=== PATIENT | male | born 1960 | race African-American/Black ===

== ENCOUNTER 2016-11-20 21:08 | Emergency (ER) | payer OTHER ==
[~2016-11-20 21:08] MED LIST: NALOXONE HCL 0.4 MG/1 ML VIAL/CARP ONE
[2016-11-20] MEDS ORDERED: SODIUM CHLORIDE 0.9% 1000ML 1,000 ML IV STA (21:11)
--- NOTE | 2016-11-20 21:15 | EMERGENCY ROOM VISIT NOTE ---
History Report prepared by [place]: Monse Campuzano Under the Supervision of: Dr. Sergey Rodriguez M.D. First contact with patient: 21:09 History of Present Illness The patient is a 42 year old male who presents to the Emergency Room to be evaluated for an episode of a fall that occurred this evening. Per nursing staff , the patient was found by his family after falling on the floor and hitting his head on the bathroom. The patient signed himself out of rehab two days ago, per . His family is concerned about the possible involvement of drugs. His related to nursing staff that she had cleaned the house of all sources of drugs and believes that the patient hit his head on purpose in order to receive some pain medication. Per patient, he cannot see out of his right eye. The history is limited due to the patient's condition. Source of History: patient History Limited By: other (patient condition) Onset: this evening Position: other (global ) Quality: other (fall) Timing: other (episode ) Note: The patient hit is head on the floor. He states that he cannot see out of his right eye. Review of Systems The review of systems is limited due to the patient's condition. Past Medical & Surgical Medical Problems: (1) Alcohol withdrawal delirium (2) Benign hypertension (3) Bypass gastroenterostomy (4) Chronic back pain (5) Delirium tremens (6) Opioid withdrawal (7) Osteoarthritis (8) PTSD (post-traumatic stress disorder) (9) Replacement of total knee joint Surgical Problems: (1) History of hip replacement (2) History of knee replacement Family History Diabetes mellitus Heart disease Social History Drug Use: other Marital Status: Housing Status: lives with family Current/Historical Medications Scheduled Ranitidine Hcl (Zantac), 150 MG PO BID Allergies Coded Allergies: No Known Allergies (Verified , 06/05/16) Physical Exam Vital Signs Date Time Temp Pulse Resp B/P Pulse Ox O2 Delivery O2 Flow Rate FiO2 11/21/16 01:20 70 19 126/76 99 11/21/16 01:19 71 11/20/16 23:48 69 18 136/76 95 Nasal Cannula 2.0 11/20/16 22:39 97 Nasal Cannula 2.0 11/20/16 22:14 72 18 123/80 100 Non-Rebreather 15.0 11/20/16 22:08 63 16 100 2/13/17 22:03 54 4 11/20/16 21:55 54 20 162/95 100 Room Air 11/20/16 21:48 62 15 162/95 11/20/16 21:43 55 13 76 11/20/16 21:41 95 Non-Rebreather 15.0 11/20/16 21:41 95 Non-Rebreather 15.0 11/20/16 21:40 134/84 11/20/16 21:38 58 17 11/20/16 21:33 50 20 91 11/20/16 21:32 155/95 11/20/16 21:28 55 19 100 11/20/16 21:26 58 Physical Exam GENERAL: Patient is a healthy-appearing well-nourished, clinically intoxicated HEAD: Normocephalic atraumatic EYES: Ocular movements intact pupils equal and react to light OROPHARYNX mucous membranes are moist no exudates present no erythema or edema present NECK: Supple no nuchal rigidity CHEST: Good equal expansion LUNGS: Clear and equal to auscultation CARDIAC: Normal S1 and S2 ABDOMEN: Soft nontender no guarding BACK: No CVA tenderness EXTREMITIES: No pain upon palpation normal muscle strength in all groups no clubbing cyanosis or edema NEURO: Patient will not respond to commands, responds to painful stimuli. Cranial Nerves 2-12 grossly intact Medical Decision & Procedures ER Provider Diagnostic Interpretation: X-ray results as stated below per my interpretation and radiologist interpretation. Other radiology results as stated below per my review and radiologist interpretation: CT SCAN OF THE BRAIN WITHOUT IV CONTRAST CLINICAL HISTORY: Change in mental status. COMPARISON STUDY: CT of the brain dated 07/19/2016. TECHNIQUE: Unenhanced axial CT scan of the brain is performed from the vertex to the skull base. Automated dose control exposure was utilized. CT DOSE: 871.45 mGy.cm FINDINGS: Brain parenchyma: The brain parenchyma is normal in appearance. There is no hemorrhage, mass effect, or evidence of acute territorial ischemia by CT criteria. Davidson-white matter is preserved. No extra-axial fluid collection is seen. Ventricles, sulci, cisterns: Normal in configuration. Intracranial vasculature: The visualized intracranial vasculature at the skull base is normal in appearance. Calvarium: Unremarkable. Sinuses and mastoids: The visualized paranasal sinuses are clear. The mastoid air cells are well pneumatized. Orbits: The bony orbits are grossly intact. IMPRESSION: No acute intracranial abnormality. Electronically signed by: Juan Panda M.D. 11/20/2016 10:04 PM Dictated Date/Time: 11/20/2016 10:02 PM SINGLE VIEW CHEST CLINICAL HISTORY: Change in mental status. FINDINGS: An AP, portable, upright chest radiograph is compared to study dated 06/05/2016. Correlation is made with chest CT dated 03/27/2011. The examination is degraded by portable technique, apical lordotic positioning, and patient rotation. The cardiomediastinal silhouette is unremarkable. There is atherosclerotic calcification of the thoracic aorta. The pulmonary vasculature is noncongested. There is chronic elevation of left hemidiaphragm with minimal left basilar atelectasis as well as chronic interstitial thickening. There is no airspace consolidation or large pleural effusion. No pneumothorax is seen. The bony thorax is grossly intact. Mild degenerative change is seen throughout the thoracic spine. IMPRESSION: No acute cardiopulmonary abnormality. Electronically signed by: Juan Panda M.D. 11/20/2016 10:11 PM Dictated Date/Time: 11/20/2016 10:10 PM RIGHT WRIST 4 VIEWS CLINICAL HISTORY: Right wrist pain. FINDINGS: 4 views of the right wrist are obtained. No prior studies are available for comparison at the time of dictation. The skeletal structures are well mineralized. There is no radiographic evidence of fracture. Minimal arthritic change is present the first carpometacarpal joint. Mild soft tissue swelling is observed. IMPRESSION: Mild soft tissue swelling with no radiographic evidence of fracture. If there is clinical concern for occult fracture consider short-term radiographic follow-up. Electronically signed by: Juan Panda M.D. 11/20/2016 10:06 PM Dictated Date/Time: 11/20/2016 10:04 PM Laboratory Results 11/20/16 21:32 Red Blood Count 4.56, Mean Corpuscular Volume 93.4, Mean Corpuscular Hemoglobin 32.5, Mean Corpuscular Hemoglobin Concent 34.7, Mean Platelet Volume 9.2, Neutrophils (%) (Auto) 47.4, Lymphocytes (%) (Auto) 45.2, Monocytes (%) (Auto) 4.0, Eosinophils (%) (Auto) 2.2, Basophils (%) (Auto) 1.0, Neutrophils # (Auto) 2.84, Lymphocytes # (Auto) 2.71, Monocytes # (Auto) 0.24, Eosinophils # (Auto) 0.13, Basophils # (Auto) 0.06 11/20/16 21:32 Test 11/20/16 21:32 11/20/16 21:39 11/20/16 21:42 11/21/16 00:01 White Blood Count 5.99 K/uL (4.8-10.8) Red Blood Count 4.56 M/uL (4.7-6.1) Hemoglobin 14.8 g/dL (14.0-18.0) Hematocrit 42.6 % (42-52) Mean Corpuscular Volume 93.4 fL (80-100) Mean Corpuscular Hemoglobin 32.5 pg (25-34) Mean Corpuscular Hemoglobin Concent 34.7 g/dl (32-36) Platelet Count 276 K/uL (130-400) Mean Platelet Volume 9.2 fL (7.4-10.4) Neutrophils (%) (Auto) 47.4 % Lymphocytes (%) (Auto) 45.2 % Monocytes (%) (Auto) 4.0 % Eosinophils (%) (Auto) 2.2 % Basophils (%) (Auto) 1.0 % Neutrophils # (Auto) 2.84 K/uL (1.4-6.5) Lymphocytes # (Auto) 2.71 K/uL (1.2-3.4) Monocytes # (Auto) 0.24 K/uL (0.11-0.59) Eosinophils # (Auto) 0.13 K/uL (0-0.5) Basophils # (Auto) 0.06 K/uL (0-0.2) RDW Standard Deviation 47.0 fL (36.4-46.3) RDW Coefficient of Variation 13.7 % (11.5-14.5) Immature Granulocyte % (Auto) 0.2 % Immature Granulocyte # (Auto) 0.01 K/uL (0.00-0.02) Prothrombin Time 9.9 SECONDS (9.0-12.0) Prothromb Time International Ratio 0.9 (0.9-1.1) Activated Partial Thromboplast Time 25.7 SECONDS (21.0-31.0) Partial Thromboplastin Ratio 1.0 Anion Gap 12.0 mmol/L (3-11) Estimated GFR () 99.7 Estimated GFR (Non- 86.0 BUN/Creatinine Ratio 9.9 (10-20) Calcium Level 9.1 mg/dl (8.5-10.1) Total Bilirubin 0.4 mg/dl (0.2-1) Direct Bilirubin mg/dl (0-0.2) Aspartate Amino Transf (AST/SGOT) 21 U/L (15-37) Alanine Aminotransferase (ALT/SGPT) 16 U/L (12-78) Alkaline Phosphatase 70 U/L (45-117) Total Creatine Kinase 96 U/L (39-308) Total Protein 7.6 gm/dl (6.4-8.2) Albumin 3.5 gm/dl (3.4-5.0) Lipase 141 U/L (73-393) Chemistry Specimen Hemolysis Salicylates Level 3.7 mg/dl (2.8-20) Acetaminophen Level < 2 ug/ml (10-30) Ethyl Alcohol mg/dL 102.0 mg/dl (0-3) Urine Color YELLOW Urine Appearance CLEAR (CLEAR) Urine pH 6.5 (4.5-7.5) Urine Specific [place] 1.000 (1.000-1.030) Urine Protein NEG (NEG) Urine Glucose (UA) NEG (NEG) Urine Ketones NEG (NEG) Urine Occult Blood NEG (NEG) Urine Nitrite NEG (NEG) Urine Bilirubin NEG (NEG) Urine Urobilinogen NEG (NEG) Urine Leukocyte Esterase NEG (NEG) Urine Opiates Screen NEG (NEG) Urine Methadone, Qualitative NEG (NEG) Urine Barbiturates NEG (NEG) Urine Phencyclidine (PCP) Level NEG (NEG) Ur Amphetamine/Methamphetamine NEG (NEG) MDMA (Ecstasy) Screen NEG (NEG) Urine Benzodiazepines Screen POS (NEG) Urine Cocaine Metabolite NEG (NEG) Urine Marijuana (THC) NEG (NEG) Bedside Lactic Acid Venous 3.24 mmol/L (0.90-1.70) Bedside Glucose 80 mg/dl (70-99) Labs reviewed by ED physician. Medications Administered Medications (Trade) Dose Ordered Sig/Lm Route Start Time Stop Time Status Last Admin Dose Admin Sodium Chloride (Nss 1000ml) 1,000 ml @ 999 mls/hr Q1H1M STAT IV 2/13/17 21:11 11/20/16 22:11 DC 11/20/16 21:11 999 MLS/HR Dextrose (Dextrose 50% 50ML Syringe) 50 ml NOW STAT IV 11/20/16 21:33 11/20/16 21:35 DC 11/20/16 21:39 50 ML Naloxone HCl (Narcan Inj) 0.2 mg NOW STAT IV 11/20/16 21:33 11/20/16 21:35 DC 11/20/16 21:33 0.2 MG Acetaminophen (Tylenol Tab) 1,000 mg NOW STAT PO 11/21/16 00:28 11/21/16 00:29 DC 11/21/16 01:17 1,000 MG ECG Indication: toxicologic Rate (beats per minute): 56 Rhythm: sinus bradycardia Findings: PVC, no acute ischemic change ED Course 2105: Past medical records reviewed. The patient was evaluated in room A1. A complete history and physical examination was performed. 2110: Sodium Chloride 1000 ml @ 999 mls/hr IV 2132: Narcan 0.2 mg IV, Dextrose 50 ml IV 5: I reevaluated the patient; he is resting. 0026: Upon reexamination the patient is resting. I discussed results and treatment plan with the patient. He verbalizes agreement and understanding. The patient is ready for discharge. Medical Decision The patient is a 56 year old male who presents to the ED with to be evaluated for a fall. Differential diagnosis: Etiologies such as toxicologic, infection, hypoglycemia, electrolyte abnormalities, cardiac sources, intracerebral event, neurologic, as well as others were entertained. This is a 56-year-old male who presents emergency department after throwing himself on the ground is awaiting room. The patient is not cooperative on examination and appears to be malingering. He is intoxicated. He was immediate was sent for a CAT scan of the head due to his unresponsive state. After some time the patient then began to wake up. He was assessed multiple times. The patient's also called into the emergency department warning us not to give him any narcotics as he had just signed himself out AGAINST MEDICAL ADVICE from a rehabilitation facility. The patient 's believes he is trying to get narcotics. He was observed to the emergency department for some time. After like to time his alcohol intoxication did clear. Impression Primary Impression: Alcohol intoxication Additional Impressions: Head injury Wrist pain, right Scribe Attestation The scribe's documentation has been prepared under my direction and personally reviewed by me in its entirety. I confirm that the note above accurately reflects all work, treatment, procedures, and medical decision making performed by me. Departure Information Dispostion Home / Self-Care Forms HOME CARE DOCUMENTATION FORM, IMPORTANT VISIT INFORMATION, WORK / SCHOOL INSTRUCTIONS Patient Instructions ED Alcohol Intoxication, My [facility] Additional Instructions You have been examined and treated today on an emergency basis only. This is not a substitute for, or an effort to provide, complete comprehensive medical care. It is impossible to recognize and treat all injuries or illnesses in a single emergency department visit. It is therefore important that you follow up closely with [facility]. Call as soon as possible for an appointment. Thank you for your time and consideration. I look forward to speaking with you again soon. Please don't hesitate to call us if you have any questions. Problem Qualifiers Primary Impression: Alcohol intoxication Complication of substance-induced condition: uncomplicated Qualified Codes: F10.120 - Alcohol abuse with intoxication, uncomplicated Additional Impressions: Head injury Encounter type: initial encounter Qualified Codes: S09.90XA - Unspecified injury of head, initial encounter
[2016-11-20] MEDS ORDERED: DEXTROSE 50% 50 ML SYR IV STA (21:33)
[2016-11-20] MEDS ORDERED: NALOXONE HCL 0.4 MG/1 ML VIAL/CARP IV STA (21:33)
[2016-11-20 21:46] LABS: BASO ABS # 0.06 K/uL (0-0.2); COMPLETE YES; EOS % 2.2 %; HEMATOCRIT 42.6 % (42-52); IG% 0.2 %; LYMPH % 45.2 %; LYMPH ABS # 2.71 K/uL (1.2-3.4); MEAN CELL VOLUME 93.4 fL (80-100); MEAN CORPUSCULAR HEMOGLOBIN 32.5 pg (25-34); MEAN CORPUSCULAR HGB CONC 34.7 g/dl (32-36); MEAN PLATELET VOLUME 9.2 fL (7.4-10.4); NEUT % 47.4 %; PLATELET COUNT 276 K/uL (130-400); RED BLOOD COUNT 4.56 M/uL (4.7-6.1); WHITE BLOOD COUNT 5.99 K/uL (4.8-10.8)
[2016-11-20 21:55] LABS: INR 0.9 (0.9-1.1); PROTHROMBIN TIME (PATIENT) 9.9 SECONDS (9.0-12.0)
[2016-11-20 22:01] LABS: URINE APPEARANCE CLEAR (CLEAR); URINE BILIRUBIN NEG (NEG); URINE COLOR YELLOW; URINE NITRITE NEG (NEG); URINE PH 6.5 (4.5-7.5); UROBILINOGEN NEG (NEG)
[2016-11-20 22:02] LABS: MANUAL MICROSCOPIC REQUIRED? NO; REVIEW REQ? NO
--- NOTE | 2016-11-20 22:05 | DIAGNOSTIC IMAGING REPORT ---
CT SCAN OF THE BRAIN WITHOUT IV CONTRAST CLINICAL HISTORY: Change in mental status. COMPARISON STUDY: CT of the brain dated 07/19/2016. TECHNIQUE: Unenhanced axial CT scan of the brain is performed from the vertex to the skull base. Automated dose control exposure was utilized. CT DOSE: 871.45 mGy.cm FINDINGS: Brain parenchyma: The brain parenchyma is normal in appearance. There is no hemorrhage, mass effect, or evidence of acute territorial ischemia by CT criteria. Davidson-white matter is preserved. No extra-axial fluid collection is seen. Ventricles, sulci, cisterns: Normal in configuration. Intracranial vasculature: The visualized intracranial vasculature at the skull base is normal in appearance. Calvarium: Unremarkable. Sinuses and mastoids: The visualized paranasal sinuses are clear. The mastoid air cells are well pneumatized. Orbits: The bony orbits are grossly intact. IMPRESSION: No acute intracranial abnormality. Electronically signed by: Juan Panda M.D. 11/20/2016 10:04 PM Dictated Date/Time: 11/20/2016 10:02 PM
--- NOTE | 2016-11-20 22:08 | DIAGNOSTIC IMAGING REPORT ---
RIGHT WRIST 4 VIEWS CLINICAL HISTORY: Right wrist pain. FINDINGS: 4 views of the right wrist are obtained. No prior studies are available for comparison at the time of dictation. The skeletal structures are well mineralized. There is no radiographic evidence of fracture. Minimal arthritic change is present the first carpometacarpal joint. Mild soft tissue swelling is observed. IMPRESSION: Mild soft tissue swelling with no radiographic evidence of fracture. If there is clinical concern for occult fracture consider short-term radiographic follow-up. Electronically signed by: Juan Panda M.D. 11/20/2016 10:06 PM Dictated Date/Time: 11/20/2016 10:04 PM
[2016-11-20 22:09] LABS: ACETAMINOPHEN < 2 ug/ml (10-30)
--- NOTE | 2016-11-20 22:12 | DIAGNOSTIC IMAGING REPORT ---
SINGLE VIEW CHEST CLINICAL HISTORY: Change in mental status. FINDINGS: An AP, portable, upright chest radiograph is compared to study dated 06/05/2016. Correlation is made with chest CT dated 03/27/2011. The examination is degraded by portable technique, apical lordotic positioning, and patient rotation. The cardiomediastinal silhouette is unremarkable. There is atherosclerotic calcification of the thoracic aorta. The pulmonary vasculature is noncongested. There is chronic elevation of left hemidiaphragm with minimal left basilar atelectasis as well as chronic interstitial thickening. There is no airspace consolidation or large pleural effusion. No pneumothorax is seen. The bony thorax is grossly intact. Mild degenerative change is seen throughout the thoracic spine. IMPRESSION: No acute cardiopulmonary abnormality. Electronically signed by: Juan aPnda M.D. 11/20/2016 10:11 PM Dictated Date/Time: 11/20/2016 10:10 PM
[2016-11-20 22:23] LABS: ALKALINE PHOSPHATASE 70 U/L (45-117); ALT/SGPT 16 U/L (12-78); AST/SGOT 21 U/L (15-37); BLOOD UREA NITROGEN 10 mg/dl (7-18); BUN/CREATININE RATIO 9.9 (10-20); CALCIUM 9.1 mg/dl (8.5-10.1); CARBON DIOXIDE 24 mmol/L (21-32); CHLORIDE 107 mmol/L (98-107); CREATININE 0.99 mg/dl (0.60-1.40); GLUCOSE 65 mg/dl (70-99); POTASSIUM 3.7 mmol/L (3.5-5.1); SODIUM 143 mmol/L (136-145)
[2016-11-20 22:30] LABS: BENZODIAZEPINE, URINE POS (NEG); COCAINE,URINE NEG (NEG); PHENCYCLIDINE, URINE NEG (NEG)
[2016-11-20 22:39] VITALS: O2SAT 97
[2016-11-21] MEDS ORDERED: DEXTROSE 50% 50 ML SYR IV STA (00:16)
[2016-11-21] MEDS ORDERED: ACETAMINOPHEN 500 MG TAB PO STA (00:28)
[2016-11-21 01:20] VITALS: BP 126/76; PULSE 70; O2SAT 99
[2016-11-22] MEDS ORDERED: RANI150T3 PO (21:06)
[2016-11-23 14:20] LABS: HYDROXYETHYLFLURAZEPAM CONF NEGATIVE NG/ML (CUTOFF=50); HYDROXYMIDAZOLAM NEGATIVE NG/ML (CUTOFF=50); HYDROXYTRIAZOLAM CONF NEGATIVE NG/ML (CUTOFF=50); TEMAZEPAM CONF NEGATIVE NG/ML (CUTOFF=50)
== END 2016-11-21 01:20 | disposition home or self-care (01) ==
LOC: EDUNIT# 21:08 → C.ED 21:12 → C.EDA 11-21 01:20
DX: F10.120 Alcohol abuse with intoxication, uncomplicated (principal); S09.90XA Unspecified injury of head, initial encounter; W18.00XA Striking against unspecified object with subsequent fall, initial encounter; M25.531 Pain in right wrist; I10 Essential (primary) hypertension; F43.10 Post-traumatic stress disorder, unspecified; Z82.49 Family history of ischemic heart disease and other diseases of the circulatory system; Z83.3 Family history of diabetes mellitus

== ENCOUNTER 2016-11-22 16:18 | Emergency (ER) | payer OTHER ==
[~2016-11-22] VITALS: Ht 177.8 cm; Wt 100.0 kg
[2016-11-22 16:27] VITALS: TEMP 37.2; Ht 177.8 cm; Wt 100.0 kg
[2016-11-22] MEDS ORDERED: ONDANSETRON INJ 2 MG/ML 2 ML VIAL IV PRN (17:00)
--- NOTE | 2016-11-22 17:04 | EMERGENCY ROOM VISIT NOTE ---
History Report prepared by [place]: Jose Bertrand Under the Supervision of: Dr. Brent Lei M.D. First contact with patient: 16:52 Chief Complaint: ABDOMINAL PAIN Stated Complaint: AB PAIN Nursing Triage Summary: PT TO ROOM C3 VIA ALS FROM HOME. PT WITH HX OF GASTRIC BYPASS. PT STATES 'EVERYTHING I PUT IN MY MOUTH I VOMIT.' PT STATES THIS HAS BEEN GOING ON FOR 3- 4 MONTHS BUT IT IS GETTING WORSE. PT REPORTS THAT HE WAS SEEN HERE A FEW DAYS AGO FOR A FALL AND LOW BLOOD SUGAR. History of Present Illness The patient is a 56 year old male who presents to the Emergency Room via ALS with complaints of severe and worsening diffuse abdominal pain starting about 4 months ago. He also complains of vomiting, constipation, and weakness. He also notes a loss of appetite. He denies diarrhea, urinary symptoms, or any other complaints. He had a gastric bypass surgery in 2007 and a re-do surgery 2 weeks later in 2007. He denies any blood thinners. Source of History: patient Onset: about 4 months ago Position: abdomen (diffuse) Symptom Intensity: severe Timing: worsening Associated Symptoms: + vomiting, + weakness, No diarrhea, No urinary symptoms Review of Systems All systems have been listed, reviewed, and are negative other than those previously mentioned. Please see Additional Medical History Sheet. Past Medical & Surgical Medical Problems: (1) Alcohol withdrawal delirium (2) Benign hypertension (3) Bypass gastroenterostomy (4) Chronic back pain (5) Delirium tremens (6) Opioid withdrawal (7) Osteoarthritis (8) PTSD (post-traumatic stress disorder) (9) Replacement of total knee joint Surgical Problems: (1) History of hip replacement (2) History of knee replacement Family History Diabetes mellitus Heart disease Social History Smoking Status: Current Every Day Smoker Alcohol Use: heavy Drug Use: other Marital Status: Housing Status: lives with family Occupation Status: employed Current/Historical Medications Scheduled Ranitidine Hcl (Zantac), 150 MG PO BID Allergies Coded Allergies: No Known Allergies (Verified , 06/05/16) Physical Exam Vital Signs Date Time Temp Pulse Resp B/P Pulse Ox O2 Delivery O2 Flow Rate FiO2 11/22/16 21:23 75 20 97 11/22/16 20:36 73 11/22/16 20:03 68 18 129/93 97 Room Air 11/22/16 18:04 73 18 137/108 11/22/16 16:38 67 11/22/16 16:27 37.2 79 18 169/104 96 Room Air Physical Exam GENERAL: Patient awake, alert, oriented x 3. Patient follows commands. Patient does not appear toxic. Patient is adequately hydrated and well- nourished. SKIN: No erythema, pallor, cyanosis or rash HEENT: Normal head, scab over the right forehead from a previous fall, pupils equal, reactive to light and accommodation. Ears normal. LUNGS: Clear to auscultation. No wheezes, no rales, no rhonchi. HEART: No murmurs. No gallops. No rubs ABDOMEN: Mid epigastric tenderness. Positive bowel sounds. No masses, no rebound , no hepatomegaly or splenomegaly. EXTREMITIES: No signs of trauma or infection. NEUROLOGIC: Cranial nerves II-XII within normal limits. No gross motor sensory function deficits. Medical Decision & Procedures ER Provider Diagnostic Interpretation: CT results as stated below per my review and radiologist interpretation: ABDOMEN AND PELVIS CT WITH IV CONTRAST CT DOSE: 362.41 mGy.cm HISTORY: Pain. Nausea. gastric by pass obstructed? Can't hold down contrast TECHNIQUE: Multiaxial CT images of the abdomen and pelvis were performed following the use of intravenous contrast. COMPARISON STUDY: 08/26/2015. FINDINGS: lung bases are clear. Post gastric bypass type changes in the upper abdomen. No evidence for gastric distention. Liver is uniform throughout. Small left renal cyst stable from the prior study. No evidence for hydronephrosis. Gallbladder is negative for distention. Bowel pattern is considered nonobstructive throughout. Bladder is midline. Operative changes consistent with a hip arthroplasty on the right. Findings suggesting a mild nonspecific enteritis. IMPRESSION: 1. Mild nonspecific enteritis. 2. Nonobstructive bowel pattern. 3. Operative changes consistent with a prior gastric bypass type procedure. 4. No evidence for abscess collection or obstruction. 5. Density left inguinal region diminished in size in the prior study presumably representing a resolving postprocedural hematoma Electronically signed by: Efren Lizarraga M.D. 11/22/2016 8:10 PM Dictated Date/Time: 11/22/2016 8:06 PM Laboratory Results 11/22/16 18:20 Red Blood Count 4.37, Mean Corpuscular Volume 93.4, Mean Corpuscular Hemoglobin 32.0, Mean Corpuscular Hemoglobin Concent 34.3, Mean Platelet Volume 9.1, Neutrophils (%) (Auto) 65.7, Lymphocytes (%) (Auto) 29.2, Monocytes (%) (Auto) 3.4, Eosinophils (%) (Auto) 0.8, Basophils (%) (Auto) 0.7, Neutrophils # (Auto) 4.01, Lymphocytes # (Auto) 1.78, Monocytes # (Auto) 0.21, Eosinophils # (Auto) 0.05, Basophils # (Auto) 0.04 11/22/16 18:20 Test 11/22/16 18:20 11/22/16 20:55 White Blood Count 6.10 K/uL (4.8-10.8) Red Blood Count 4.37 M/uL (4.7-6.1) Hemoglobin 14.0 g/dL (14.0-18.0) Hematocrit 40.8 % (42-52) Mean Corpuscular Volume 93.4 fL (80-100) Mean Corpuscular Hemoglobin 32.0 pg (25-34) Mean Corpuscular Hemoglobin Concent 34.3 g/dl (32-36) Platelet Count 286 K/uL (130-400) Mean Platelet Volume 9.1 fL (7.4-10.4) Neutrophils (%) (Auto) 65.7 % Lymphocytes (%) (Auto) 29.2 % Monocytes (%) (Auto) 3.4 % Eosinophils (%) (Auto) 0.8 % Basophils (%) (Auto) 0.7 % Neutrophils # (Auto) 4.01 K/uL (1.4-6.5) Lymphocytes # (Auto) 1.78 K/uL (1.2-3.4) Monocytes # (Auto) 0.21 K/uL (0.11-0.59) Eosinophils # (Auto) 0.05 K/uL (0-0.5) Basophils # (Auto) 0.04 K/uL (0-0.2) RDW Standard Deviation 47.3 fL (36.4-46.3) RDW Coefficient of Variation 13.8 % (11.5-14.5) Immature Granulocyte % (Auto) 0.2 % Immature Granulocyte # (Auto) 0.01 K/uL (0.00-0.02) Prothrombin Time 10.2 SECONDS (9.0-12.0) Prothromb Time International Ratio 1.0 (0.9-1.1) Anion Gap 8.0 mmol/L (3-11) Est Creatinine Clear Calc Drug Dose 100.1 ml/min Estimated GFR () 98.5 Estimated GFR (Non- 84.9 BUN/Creatinine Ratio 8.9 (10-20) Calcium Level 8.7 mg/dl (8.5-10.1) Total Bilirubin 0.4 mg/dl (0.2-1) Aspartate Amino Transf (AST/SGOT) 13 U/L (15-37) Alanine Aminotransferase (ALT/SGPT) 15 U/L (12-78) Alkaline Phosphatase 62 U/L (45-117) Total Protein 6.7 gm/dl (6.4-8.2) Albumin 3.1 gm/dl (3.4-5.0) Globulin 3.6 gm/dl (2.5-4.0) Albumin/Globulin Ratio 0.9 (0.9-2) Lipase 142 U/L (73-393) Bedside Glucose 121 mg/dl (70-99) Laboratory results as stated above per my review. Medications Administered Medications (Trade) Dose Ordered Sig/Lm Route Start Time Stop Time Status Last Admin Dose Admin Morphine Sulfate (MoRPHine SULFATE INJ) 8 mg Q1H PRN IV 11/22/16 17:00 11/22/16 22:12 DC 11/22/16 17:08 8 MG Ondansetron HCl (Zofran Inj) 4 mg Q1HWA PRN IV 11/22/16 17:00 11/22/16 22:12 DC 11/22/16 17:08 4 MG Morphine Sulfate (MoRPHine SULFATE INJ) 8 mg STK-MED ONCE .ROUTE 11/22/16 19:17 11/22/16 19:18 DC 11/22/16 19:17 8 MG Ranitidine HCl (zANTac TAB) 150 mg NOW ONCE PO 11/22/16 21:00 11/22/16 21:01 DC 11/22/16 21:22 150 MG ECG Indication: abdominal pain Rate (beats per minute): 84 Rhythm: sinus with SA Findings: no acute ischemic change, no ectopy ED Course 1652: Past medical records reviewed. The patient was evaluated in room C03. A complete history and physical examination was performed. 170: Zofran Inj 4 mg IV 1741: I spoke to the Emergency Room nurse who was unable to get the patient to drink contrast for CT and was unable to place an NG tube. Patient will receive CT without contrast. 1916: Morphine Sulfate 8 mg IV 2045: Upon reevaluation, the patient appeared to have improvement of his symptoms. I discussed today's findings with him. He verbalized agreement of the treatment plan. He was discharged home. 2100: Ranitidine HCl 150 mg PO Medical Decision Differential diagnosis includes but is not limited to bowel obstruction, peptic/ gastric ulcer disease, complication from previous gastric bypass, dehydration, malnutrition. Multiple labs and CT were obtained. Please see above. The patient is not obstructed. The patient most likely has some gastritis causing his symptoms. The patient does drink alcohol and was here a few nights ago with alcohol intoxication. That obviously is not helping his stomach. The patient needs to follow-up with a family physician and may also require GI follow-up. The patient is safe to return home at this time. The patient was started on Zantac and will continue that medication at home. Impression Primary Impression: Epigastric pain Additional Impression: Status post gastric bypass for obesity Scribe Attestation The scribe's documentation has been prepared under my direction and personally reviewed by me in its entirety. I confirm that the note above accurately reflects all work, treatment, procedures, and medical decision making performed by me. Departure Information Dispostion Home / Self-Care Prescriptions Ranitidine Hcl (ZANTAC) 150 Mg Tab 150 MG PO BID, #60 TAB Prov: Brent Lei M.D. 11/22/16 Referrals No Doctor, Assigned (PCP) Forms Call Back Authorization, HOME CARE DOCUMENTATION FORM, IMPORTANT VISIT INFORMATION Patient Instructions My [facility] Additional Instructions 150 mg of Zantac twice a day. Continue all of your current medications as prescribed. Follow-up with a family physician within the next 2 weeks. NO ALCOHOL Problem Qualifiers
[2016-11-22] MEDS: MoRPHine SULFATE 10 MG/ML CARP/VIAL IV PRN ×2 (17:08→19:44)
[2016-11-22] MEDS ORDERED: OPTIRAY 320 IV PRN (18:00)
[2016-11-22 18:35] LABS: BASO % 0.7 %; BASO ABS # 0.04 K/uL (0-0.2); COMPLETE YES; EOS % 0.8 %; HEMATOCRIT 40.8 % (42-52); IG% 0.2 %; LYMPH % 29.2 %; LYMPH ABS # 1.78 K/uL (1.2-3.4); MEAN CELL VOLUME 93.4 fL (80-100); MEAN CORPUSCULAR HGB CONC 34.3 g/dl (32-36); MEAN PLATELET VOLUME 9.1 fL (7.4-10.4); MONO % 3.4 %; NEUT % 65.7 %; PLATELET COUNT 286 K/uL (130-400); RED BLOOD COUNT 4.37 M/uL (4.7-6.1)
[2016-11-22 18:46] LABS: PROTHROMBIN TIME (PATIENT) 10.2 SECONDS (9.0-12.0)
[2016-11-22 19:00] LABS: BUN/CREATININE RATIO 8.9 (10-20); CALCIUM 8.7 mg/dl (8.5-10.1); POTASSIUM 3.7 mmol/L (3.5-5.1)
[2016-11-22 19:03] LABS: ALB/GLOB RATIO 0.9 (0.9-2)
[2016-11-22] MEDS ORDERED: MoRPHine SULFATE 4 MG/ML 1 ML CARP\\VIAL ONE (19:17)
[2016-11-22 20:03] VITALS: BP 129/93
--- NOTE | 2016-11-22 20:26 | DIAGNOSTIC IMAGING REPORT ---
ABDOMEN AND PELVIS CT WITH IV CONTRAST CT DOSE: 362.41 mGy.cm HISTORY: Pain. Nausea. gastric by pass obstructed? Can't hold down contrast TECHNIQUE: Multiaxial CT images of the abdomen and pelvis were performed following the use of intravenous contrast. COMPARISON STUDY: 08/26/2015. FINDINGS: lung bases are clear. Post gastric bypass type changes in the upper abdomen. No evidence for gastric distention. Liver is uniform throughout. Small left renal cyst stable from the prior study. No evidence for hydronephrosis. Gallbladder is negative for distention. Bowel pattern is considered nonobstructive throughout. Bladder is midline. Operative changes consistent with a hip arthroplasty on the right. Findings suggesting a mild nonspecific enteritis. IMPRESSION: 1. Mild nonspecific enteritis. 2. Nonobstructive bowel pattern. 3. Operative changes consistent with a prior gastric bypass type procedure. 4. No evidence for abscess collection or obstruction. 5. Density left inguinal region diminished in size in the prior study presumably representing a resolving postprocedural hematoma Electronically signed by: Efren Lizarraga M.D. 11/22/2016 8:10 PM Dictated Date/Time: 11/22/2016 8:06 PM
[2016-11-22] MEDS ORDERED: RANITIDINE HCL 150 MG TAB PO ONE (21:00)
[2016-11-22] MEDS ORDERED: RANI150T3 PO (21:06)
[2016-11-22 21:23] VITALS: PULSE 75; O2SAT 97
== END 2016-11-22 21:24 | disposition home or self-care (01) ==
LOC: EDBD 16:18 → C.EDC 16:19
DX: R10.13 Epigastric pain (principal); R11.10 Vomiting, unspecified; K59.00 Constipation, unspecified; R53.1 Weakness; R63.0 Anorexia; I10 Essential (primary) hypertension; M19.90 Unspecified osteoarthritis, unspecified site; Z79.899 Other long term (current) drug therapy; Z98.84 Bariatric surgery status; Z83.3 Family history of diabetes mellitus; Z82.49 Family history of ischemic heart disease and other diseases of the circulatory system

== ENCOUNTER 2016-12-09 09:12 | Emergency (ER) | payer OTHER ==
[~2016-12-09] VITALS: Ht 180.3 cm; Wt 101.9 kg
[~2016-12-09 09:12] MED LIST changes: -NALOXONE HCL 0.4 MG/1 ML VIAL/CARP ONE; +RANI150T3 PO
[2016-12-09 09:19] VITALS: TEMP 36.8; Ht 180.3 cm; Wt 101.9 kg
[2016-12-09] MEDS ORDERED: MULTI-VITAMIN INFUSION INJ 10 ML, THIAMINE HCL INJ 100 MG, FoLIC ACID INJ 1 MG in SODIU... IV ONE (09:45)
[2016-12-09 09:51] VITALS: O2SAT 94
[2016-12-09 10:09] LABS: BASO % 0.2 %; BASO ABS # 0.02 K/uL (0-0.2); COMPLETE YES; EOS % 0.6 %; HEMATOCRIT 37.8 % (42-52); IG% 0.2 %; LYMPH % 12.1 %; LYMPH ABS # 1.01 K/uL (1.2-3.4); MEAN CORPUSCULAR HEMOGLOBIN 31.8 pg (25-34); MEAN CORPUSCULAR HGB CONC 33.9 g/dl (32-36); MONO % 3.7 %; NEUT % 83.2 %; PLATELET COUNT 196 K/uL (130-400); RED BLOOD COUNT 4.02 M/uL (4.7-6.1); WHITE BLOOD COUNT 8.34 K/uL (4.8-10.8)
[2016-12-09 10:18] LABS: INR 0.9 (0.9-1.1); PARTIAL THROMBOPLASTIN RATIO 0.9
[2016-12-09 10:26] LABS: ALT/SGPT 19 U/L (12-78); BLOOD UREA NITROGEN 17 mg/dl (7-18); BUN/CREATININE RATIO 15.8 (10-20); CALCIUM 8.8 mg/dl (8.5-10.1); CARBON DIOXIDE 29 mmol/L (21-32); CHLORIDE 107 mmol/L (98-107); GLUCOSE 82 mg/dl (70-99); POTASSIUM 3.6 mmol/L (3.5-5.1); SODIUM 143 mmol/L (136-145)
[2016-12-09 10:29] LABS: ALKALINE PHOSPHATASE 60 U/L (45-117); AST/SGOT 24 U/L (15-37)
[2016-12-09 10:41] LABS: ACETAMINOPHEN < 2 ug/ml (10-30)
[2016-12-09 12:28] VITALS: BP 151/92; O2SAT 92
[2016-12-09 12:58] LABS: BENZODIAZEPINE, URINE NEG (NEG); COCAINE,URINE NEG (NEG); PHENCYCLIDINE, URINE NEG (NEG)
--- NOTE | 2016-12-09 13:22 | DIAGNOSTIC IMAGING REPORT ---
CT SCAN OF THE BRAIN WITHOUT IV CONTRAST CLINICAL HISTORY: Overdose. Change in mental status. COMPARISON STUDY: CT of the brain dated 11/20/2016. TECHNIQUE: Unenhanced axial CT scan of the brain is performed from the vertex to the skull base. Automated dose control exposure was utilized. CT DOSE: 687.98 mGy.cm FINDINGS: Brain parenchyma: The brain parenchyma is normal in appearance. There is no hemorrhage, mass effect, or evidence of acute territorial ischemia by CT criteria. Davidson-white matter is preserved. No extra-axial fluid collection is seen. Ventricles, sulci, cisterns: Normal in configuration. Intracranial vasculature: There is atherosclerotic calcification of the cavernous carotid arteries. Calvarium: Unremarkable. Soft tissues: There is minimal left frontal scalp contusion. Sinuses and mastoids: The visualized paranasal sinuses are clear. The mastoid air cells are well pneumatized. Orbits: The bony orbits are grossly intact. IMPRESSION: No acute intracranial abnormality. Electronically signed by: Juan Panda M.D. 12/09/2016 1:21 PM Dictated Date/Time: 12/09/2016 1:19 PM
--- NOTE | 2016-12-09 13:30 | DIAGNOSTIC IMAGING REPORT ---
SINGLE VIEW CHEST CLINICAL HISTORY: Cough. Overdose. FINDINGS: An AP, portable, upright chest radiograph is compared to study dated 11/20/2016. Correlation is made with chest CT dated 04/04/2011. The examination is degraded by portable technique, motion artifact, and patient rotation. The heart is enlarged. Pulmonary vascular congestion is identified. There is atherosclerotic calcification of the thoracic aorta. No large pleural effusion is seen. There are bilateral patchy airspace opacities. No pneumothorax is identified. The bony thorax is grossly intact. Mild degenerative change is seen throughout the thoracic spine. IMPRESSION: 1. Cardiomegaly with evidence of mild congestive failure. 2. There are nonspecific bibasilar airspace opacities. The present atelectasis versus an infectious/inflammatory pneumonitis. Clinical correlation will be required. Electronically signed by: Juan Panda M.D. 12/09/2016 1:29 PM Dictated Date/Time: 12/09/2016 1:26 PM
[2016-12-09 13:44] VITALS: PULSE 68
--- NOTE | 2016-12-09 16:25 | EMERGENCY ROOM VISIT NOTE ---
History Report prepared by [place]: Estella Lanza Under the Supervision of: Dr. David Gordon M.D. First contact with patient: 09:36 Chief Complaint: OVERDOSE (INTENTIONAL) Stated Complaint: OVERDOSE (INTENTIONAL) History of Present Illness The patient is a 56 year old male who presents to the Emergency Room with likely heroin overdose that occurred prior to arrival. The patient states that he last used heroin within the last day. Per nursing staff, the patient's called 911 because she knew he used heroin and was unresponsive. They note that when police arrived the patient wouldn't talk to police and kept falling asleep. Nursing staff states that police called EMS and was brought to the emergency department for further evaluation and treatment. They state that the patient does not want anything done. The history is limited secondary to the patient's condition. Source of History: patient History Limited By: AMS Onset: prior to arrival Position: other (global) Quality: other (intentional overdose) Timing: other (sudden) Review of Systems The HPI is limited secondary to the patient's drug intoxication. Past Medical & Surgical Medical Problems: (1) Alcohol withdrawal delirium (2) Benign hypertension (3) Bypass gastroenterostomy (4) Chronic back pain (5) Delirium tremens (6) Opioid withdrawal (7) Osteoarthritis (8) PTSD (post-traumatic stress disorder) (9) Replacement of total knee joint Surgical Problems: (1) History of hip replacement (2) History of knee replacement Family History Diabetes mellitus Heart disease Social History Smoking Status: Current Every Day Smoker Alcohol Use: heavy Drug Use: other Marital Status: Housing Status: lives with family Occupation Status: employed Current/Historical Medications Unable to Obtain Active Prescriptions or Reported Meds Allergies Coded Allergies: No Known Allergies (Verified , 06/05/16) Physical Exam Vital Signs Date Time Temp Pulse Resp B/P Pulse Ox O2 Delivery O2 Flow Rate FiO2 12/09/16 13:44 68 12/09/16 12:28 90 12 151/92 92 12/09/16 11:03 72 10 161/99 91 12/09/16 10:17 68 18 161/99 98 Nasal Cannula 2.0 12/09/16 09:51 94 Nasal Cannula 2.0 12/09/16 09:41 80 18 146/118 96 Room Air 12/09/16 09:29 77 12/09/16 09:19 36.8 84 14 163/100 85 Room Air 12/09/16 09:19 93 Nasal Cannula 2.0 12/09/16 09:19 96 Nasal Cannula 2.0 Physical Exam Constitutional: Vital signs reviewed. Eyes: Pupils are pinpoint bilaterally. ENT: Pharynx is clear without erythema or exudate. Mucous membranes are moist. Neck supple without meningeal signs. Respiratory: Clear to auscultation bilaterally. Breath sounds are equal bilaterally. Cardiovascular: Regular rate and rhythm. No rubs or gallops. GI: Soft, nondistended and nontender. Bowel sounds are present. Musculoskeletal: No peripheral edema. No lower extremity tenderness. Integumentary: No cyanosis. Neurological: The patient is somnolent, but easily arousable. No focal deficits. Psychiatric: Unable to assess. Medical Decision & Procedures ER Provider Diagnostic Interpretation: Radiology results as stated below per my review and the radiologist's interpretation: CT SCAN OF THE BRAIN WITHOUT IV CONTRAST CLINICAL HISTORY: Overdose. Change in mental status. COMPARISON STUDY: CT of the brain dated 11/20/2016. TECHNIQUE: Unenhanced axial CT scan of the brain is performed from the vertex to the skull base. Automated dose control exposure was utilized. CT DOSE: 687.98 mGy.cm FINDINGS: Brain parenchyma: The brain parenchyma is normal in appearance. There is no hemorrhage, mass effect, or evidence of acute territorial ischemia by CT criteria. Davidson-white matter is preserved. No extra-axial fluid collection is seen. Ventricles, sulci, cisterns: Normal in configuration. Intracranial vasculature: There is atherosclerotic calcification of the cavernous carotid arteries. Calvarium: Unremarkable. Soft tissues: There is minimal left frontal scalp contusion. Sinuses and mastoids: The visualized paranasal sinuses are clear. The mastoid air cells are well pneumatized. Orbits: The bony orbits are grossly intact. IMPRESSION: No acute intracranial abnormality. Electronically signed by: Juan Panda M.D. 12/09/2016 1:21 PM Dictated Date/Time: 12/09/2016 1:19 PM SINGLE VIEW CHEST CLINICAL HISTORY: Cough. Overdose. FINDINGS: An AP, portable, upright chest radiograph is compared to study dated 11/20/2016. Correlation is made with chest CT dated 04/04/2011. The examination is degraded by portable technique, motion artifact, and patient rotation. The heart is enlarged. Pulmonary vascular congestion is identified. There is atherosclerotic calcification of the thoracic aorta. No large pleural effusion is seen. There are bilateral patchy airspace opacities. No pneumothorax is identified. The bony thorax is grossly intact. Mild degenerative change is seen throughout the thoracic spine. IMPRESSION: 1. Cardiomegaly with evidence of mild congestive failure. 2. There are nonspecific bibasilar airspace opacities. The present atelectasis versus an infectious/inflammatory pneumonitis. Clinical correlation will be required. Electronically signed by: Juan Panda M.D. 12/09/2016 1:29 PM Dictated Date/Time: 12/09/2016 1:26 PM Laboratory Results 12/09/16 09:55 Red Blood Count 4.02, Mean Corpuscular Volume 94.0, Mean Corpuscular Hemoglobin 31.8, Mean Corpuscular Hemoglobin Concent 33.9, Mean Platelet Volume 9.0, Neutrophils (%) (Auto) 83.2, Lymphocytes (%) (Auto) 12.1, Monocytes (%) (Auto) 3.7, Eosinophils (%) (Auto) 0.6, Basophils (%) (Auto) 0.2, Neutrophils # (Auto) 6.93, Lymphocytes # (Auto) 1.01, Monocytes # (Auto) 0.31, Eosinophils # (Auto) 0.05, Basophils # (Auto) 0.02 12/09/16 09:55 Test 12/09/16 09:55 12/09/16 12:25 12/09/16 13:00 White Blood Count 8.34 K/uL (4.8-10.8) Red Blood Count 4.02 M/uL (4.7-6.1) Hemoglobin 12.8 g/dL (14.0-18.0) Hematocrit 37.8 % (42-52) Mean Corpuscular Volume 94.0 fL (80-100) Mean Corpuscular Hemoglobin 31.8 pg (25-34) Mean Corpuscular Hemoglobin Concent 33.9 g/dl (32-36) Platelet Count 196 K/uL (130-400) Mean Platelet Volume 9.0 fL (7.4-10.4) Neutrophils (%) (Auto) 83.2 % Lymphocytes (%) (Auto) 12.1 % Monocytes (%) (Auto) 3.7 % Eosinophils (%) (Auto) 0.6 % Basophils (%) (Auto) 0.2 % Neutrophils # (Auto) 6.93 K/uL (1.4-6.5) Lymphocytes # (Auto) 1.01 K/uL (1.2-3.4) Monocytes # (Auto) 0.31 K/uL (0.11-0.59) Eosinophils # (Auto) 0.05 K/uL (0-0.5) Basophils # (Auto) 0.02 K/uL (0-0.2) RDW Standard Deviation 49.0 fL (36.4-46.3) RDW Coefficient of Variation 14.2 % (11.5-14.5) Immature Granulocyte % (Auto) 0.2 % Immature Granulocyte # (Auto) 0.02 K/uL (0.00-0.02) Prothrombin Time 10.0 SECONDS (9.0-12.0) Prothromb Time International Ratio 0.9 (0.9-1.1) Activated Partial Thromboplast Time 23.9 SECONDS (21.0-31.0) Partial Thromboplastin Ratio 0.9 Anion Gap 7.0 mmol/L (3-11) Est Creatinine Clear Calc Drug Dose 93.3 ml/min Estimated GFR () 87.7 Estimated GFR (Non- 75.7 BUN/Creatinine Ratio 15.8 (10-20) Calcium Level 8.8 mg/dl (8.5-10.1) Magnesium Level 2.0 mg/dl (1.8-2.4) Total Bilirubin 0.5 mg/dl (0.2-1) Direct Bilirubin 0.2 mg/dl (0-0.2) Aspartate Amino Transf (AST/SGOT) 24 U/L (15-37) Alanine Aminotransferase (ALT/SGPT) 19 U/L (12-78) Alkaline Phosphatase 60 U/L (45-117) Troponin I < 0.015 ng/ml (0-0.045) Total Protein 7.6 gm/dl (6.4-8.2) Albumin 3.9 gm/dl (3.4-5.0) Salicylates Level 2.6 mg/dl (2.8-20) Acetaminophen Level < 2 ug/ml (10-30) Ethyl Alcohol mg/dL < 3.0 mg/dl (0-3) Urine Opiates Screen POS (NEG) Urine Methadone, Qualitative NEG (NEG) Urine Barbiturates NEG (NEG) Urine Phencyclidine (PCP) Level NEG (NEG) Ur Amphetamine/Methamphetamine NEG (NEG) MDMA (Ecstasy) Screen NEG (NEG) Urine Benzodiazepines Screen NEG (NEG) Urine Cocaine Metabolite NEG (NEG) Urine Marijuana (THC) POS (NEG) Ammonia 32.0 umol/L (11-32) Laboratory results as reviewed by me. Medications Administered Medications (Trade) Dose Ordered Sig/Lm Route Start Time Stop Time Status Last Admin Dose Admin Multivitamins/ Thiamine HCl/ Folic Acid/Sodium Chloride (Mvi Infusion Inj/Vitamin B-1 Inj/Folvite Inj/ Nss 1000ml) 1,011.2 ml @ 500 mls/ hr Q2H2M ONCE IV 12/09/16 09:45 12/09/16 11:46 DC 12/09/16 10:54 500 MLS/HR ECG Indication: toxicologic Rate (beats per minute): 73 Rhythm: normal sinus Findings: no ectopy, other (limited interpreation due to baseline artifact, no ST elevations.) ED Course 0938: The patient was evaluated in room A2. A complete history and physical exam was performed. 0945: Ordered Multivitamins 10 ml/Thiamine HCl 100 mg/Folic Acid 1 mg/Sodium Chloride 1011.2 ml @ 500 mls/hr IV. 1136: I checked on the patient he is sleeping and has an O2 saturation of 93% on room air. 1256: I reevaluated the patient and he is stuttering and seems confused. We are going to do some further testing. 1359: I reevaluated the patient and he is more awake and alert now. I reviewed his test results right now. He states that the only thing bothering him is his life. The patient adamantly denies any suicidal ideation. He refuses to see mental health. The patient declines any information or follow up for rehab or outpatient therapy, noting that he has been through it before. He states that he wants to go home and his is going to be contacted, and when she arrives the patient is okay for discharge. 1412: Per nursing staff, the patients will be here in 20 minutes and states that the stuttering is common when he has drugs or alcohol in his system. Medical Decision This is a 56-year-old male who presents with change in mental status. Differential diagnosis includes heroin overdose, alcohol intoxication, metabolic derangement, toxidrome, cardiac. I did perform a limited focused review of portions of the patient's old chart on the electronic medical record. The patient was here on the 22 of November for abdominal pain. He had a CT scan of the abdomen which showed enteritis. I did evaluate the patient as noted above. The patient is quite somnolent but arousable. He was placed on supplemental oxygen. He does admit to using heroin today recreationally. He does have pinpoint pupils. He is not fully cooperative with the exam. He expressed the asked not to be given Narcan. IV access was established. The patient was given a banana bag IV. The patient was placed on a continuous manager laboratory. I did order and personally review the patient's 12-lead EKG as described above. I did order and review the patient's blood work as noted in the electronic medical record. His LFTs are unremarkable. Troponin is negative. Urine drug screen is positive for opiates and marijuana. I did reassess the patient several times. His O2 saturations improved and he no longer required oxygen. He was still rather somnolent and started stuttering quite a bit and seemed a bit confused. I therefore ordered a serum ammonia level which was not elevated. I did also order a CT of the head. I did review the images myself as well as the radiology report as described above. There is no evidence of stroke or intracranial hemorrhage. I did reassess the patient again. He is now sitting up in the bed eating lunch. He is much more awake and alert. He is stuttering but when we contacted his she stated that he stutters when he uses drugs. He has no complaints at this time other than being disappointed at how his life has turned out but he adamantly denies any suicidal ideation. He refuses any mental health evaluation for outpatient referrals for rehabilitation for counseling. He just wants to go home. He was discharged with his . Impression Primary Impression: Heroin overdose Additional Impression: Altered mental status Scribe Attestation The scribe's documentation has been prepared under my direct and personally reviewed by me in its entirety. I confirm that the note above accurately reflects all work, treatment, procedures, and medical decision making performed by me. Departure Information Dispostion Home / Self-Care Prescriptions Unable to Obtain Active Prescriptions or Reported Meds Referrals No Doctor, Assigned (PCP) Forms HOME CARE DOCUMENTATION FORM, IMPORTANT VISIT INFORMATION, WORK / SCHOOL INSTRUCTIONS Patient Instructions Abuse Heroin Abuse and Addiction, My [facility] Additional Instructions You have been examined and treated today on an emergency basis only. This is not a substitute for, or an effort to provide, complete comprehensive medical care. It is impossible to recognize and treat all injuries or illnesses in a single emergency department visit. It is therefore important that you follow up closely with your physician. Call as soon as possible for an appointment. Return for worsening symptoms or if you develop fever, vomiting, or any other concerning symptoms. Problem Qualifiers Primary Impression: Heroin overdose Encounter type: initial encounter Injury intent: accidental or unintentional Qualified Codes: T40.1X1A - Poisoning by heroin, accidental ( unintentional), initial encounter Additional Impression: Altered mental status Altered mental status type: unspecified Qualified Codes: R41.82 - Altered mental status, unspecified
[2016-12-13 15:18] LABS: COD UR 503 NG/ML (CUTOFF=50); HYDROCOD UR NEGATIVE NG/ML (CUTOFF=50); HYDROMOR UR NEGATIVE NG/ML (CUTOFF=50); MORPHINE UR >20000 NG/ML (CUTOFF=50); NORHYDROCODONE CONF UR NEGATIVE NG/ML (CUTOFF=50); OXYMORPH UR NEGATIVE NG/ML (CUTOFF=50)
== END 2016-12-09 14:49 | disposition home or self-care (01) ==
LOC: EDBD 09:16 → C.EDA 09:17
DX: T40.1X1A Poisoning by heroin, accidental (unintentional), initial encounter (principal); I10 Essential (primary) hypertension; F17.210 Nicotine dependence, cigarettes, uncomplicated

== ENCOUNTER 2017-04-16 21:57 | Emergency (ER) | payer OTHER ==
[~2017-04-16] VITALS: Ht 182.9 cm; Wt 81.0 kg
[2017-04-16 22:00] VITALS: TEMP 37.1; Ht 182.9 cm; Wt 81.0 kg
[2017-04-16] MEDS ORDERED: LORAZEPAM 2 MG/ML 1 ML VIAL IV STA (22:17)
[2017-04-16] MEDS ORDERED: MULTI-VITAMIN INFUSION INJ 10 ML, THIAMINE HCL INJ 100 MG, FoLIC ACID INJ 1 MG in SODIU... IV ONE (22:30)
--- NOTE | 2017-04-16 22:43 | DIAGNOSTIC IMAGING REPORT ---
CHEST ONE VIEW PORTABLE CLINICAL HISTORY: Atypical chest pain COMPARISON STUDY: 12/09/2016 FINDINGS: The cardiac and mediastinal contours are normal. There is no evidence of focal pulmonary consolidation. There is no evidence of failure. No pleural effusions are visualized.[ IMPRESSION: No active disease in the chest. Electronically signed by: Philippe Dixon M.D. 04/16/2017 10:42 PM Dictated Date/Time: 04/16/2017 10:42 PM
[2017-04-16 22:59] VITALS: BP 140/91
[2017-04-16 23:31] LABS: MEAN CELL VOLUME 90.5 fL (80-100); MEAN CORPUSCULAR HGB CONC 35.3 g/dl (32-36); MEAN PLATELET VOLUME 8.6 fL (7.4-10.4); PLATELET COUNT 280 K/uL (130-400); RED BLOOD COUNT 4.75 M/uL (4.7-6.1); WHITE BLOOD COUNT 5.53 K/uL (4.8-10.8)
[2017-04-16 23:32] LABS: BASO % 0.5 %; BASO ABS # 0.03 K/uL (0-0.2); COMPLETE YES; EOS % 0.2 %; LYMPH % 38.5 %; LYMPH ABS # 2.13 K/uL (1.2-3.4); MONO % 3.6 %; NEUT % 57.2 %
[2017-04-16 23:54] LABS: ALKALINE PHOSPHATASE 77 U/L (45-117); ALT/SGPT 27 U/L (12-78); BLOOD UREA NITROGEN 7 mg/dl (7-18); BUN/CREATININE RATIO 7.6 (10-20); CALCIUM 9.1 mg/dl (8.5-10.1); CARBON DIOXIDE 26 mmol/L (21-32); CHLORIDE 106 mmol/L (98-107); CREATININE 0.93 mg/dl (0.60-1.40); GLUCOSE 78 mg/dl (70-99); SODIUM 144 mmol/L (136-145); THYROID STIMULATING HORMONE 0.712 uIu/ml (0.300-4.500)
[2017-04-17 00:04] VITALS: PULSE 68; O2SAT 96
[2017-04-17] MEDS ORDERED: KETOROLAC TROMETHAMINE 30 MG/ML VIAL IV STA (00:09)
--- NOTE | 2017-04-17 01:00 | EMERGENCY ROOM VISIT NOTE ---
ED Visit Note First contact with patient: 22:07 I have personally evaluated and examined this patient. I agree with assessment and plan of Melba Tejada PA-C.
[2017-04-17 01:21] LABS: POTASSIUM 3.8 mmol/L (3.5-5.1)
--- NOTE | 2017-04-17 01:33 | EMERGENCY ROOM VISIT NOTE ---
History First contact with patient: 22:07 Chief Complaint: VOMITING Stated Complaint: VOMITING - DIARRHEA Nursing Triage Summary: heroin user, not used in two days, now pain, vomitting, diarrhea History of Present Illness The patient is a 56 year old male who presents to the Emergency Room with complaints of heroin withdrawal. The patient states that he has not used heroin in 2 days. He typically uses 14 bags per day. He states that he had a knee surgery a few months ago, and they stopped prescribing him pain medication , which forced him to use heroin. Patient also reports he typically drinks a fifth of liquor each day. He did drink some beer earlier today. He reports vomiting, diarrhea and generalized pain. The patient additionally complains of chest pain. He rates his discomfort a 10/10. Denies any suicidal or homicidal ideations. Review of Systems A complete 10 point review of systems was reviewed with the patient with pertinent positives and negatives as per history of present illness. All else were negative. Past Medical/Surgical History Medical Problems: (1) Alcohol withdrawal delirium (2) Benign hypertension (3) Bypass gastroenterostomy (4) Chronic back pain (5) Delirium tremens (6) Opioid withdrawal (7) Osteoarthritis (8) PTSD (post-traumatic stress disorder) (9) Replacement of total knee joint Surgical Problems: (1) History of hip replacement (2) History of knee replacement Family History Diabetes mellitus Heart disease Social History Smoking Status: Current Every Day Smoker Alcohol Use: heavy Drug Use: other Marital Status: Housing Status: lives with family Occupation Status: employed Current/Historical Medications Unable to Obtain Active Prescriptions or Reported Meds Allergies Coded Allergies: No Known Allergies (Verified , 06/05/16) Physical Exam Vital Signs Date Time Temp Pulse Resp B/P (MAP) Pulse Ox O2 Delivery O2 Flow Rate FiO2 04/17/17 00:04 68 20 96 Room Air 04/16/17 23:34 101 25 94 Room Air 04/16/17 23:04 65 17 99 Room Air 04/16/17 22:59 60 17 140/91 97 Room Air 04/16/17 22:14 60 04/16/17 22:00 37.1 77 20 148/89 98 Room Air Physical Exam VITALS: Vitals are noted on the nurse's note and reviewed by myself. Vital signs stable. GENERAL: This is a 56-year-old male, anxious appearing and shaking. SKIN: There are multiple track mac on bilateral arms. EARS: External auditory canals clear, tympanic membranes pearly azul without erythema or effusion bilaterally. EYES: Pupils equal round and reactive to light and accommodation. Conjunctivae without injection, sclerae without icterus. Extraocular movements intact. MOUTH: Mucous membranes moist. NECK: Supple without nuchal rigidity. No lymphadenopathy. HEART: Regular rate and rhythm without murmurs gallops or rubs. LUNGS: Clear to auscultation bilaterally without wheezes, rales or rhonchi. ABDOMEN: Positive bowel sounds x 4. Soft, nontender. MUSCULOSKELETAL: No deformities. NEURO: Patient was alert and oriented to person place and time. Medical Decision & Procedures ER Provider Diagnostic Interpretation: CHEST ONE VIEW PORTABLE CLINICAL HISTORY: Atypical chest pain COMPARISON STUDY: 12/09/2016 FINDINGS: The cardiac and mediastinal contours are normal. There is no evidence of focal pulmonary consolidation. There is no evidence of failure. No pleural effusions are visualized.[ IMPRESSION: No active disease in the chest. Laboratory Results 04/16/17 22:49 Red Blood Count 4.75, Mean Corpuscular Volume 90.5, Mean Corpuscular Hemoglobin 32.0, Mean Corpuscular Hemoglobin Concent 35.3, Mean Platelet Volume 8.6, Neutrophils (%) (Auto) 57.2, Lymphocytes (%) (Auto) 38.5, Monocytes (%) (Auto) 3.6, Eosinophils (%) (Auto) 0.2, Basophils (%) (Auto) 0.5, Neutrophils # (Auto) 3.16, Lymphocytes # (Auto) 2.13, Monocytes # (Auto) 0.20, Eosinophils # (Auto) 0.01, Basophils # (Auto) 0.03 04/16/17 22:49 04/17/17 00:55 Test 04/16/17 22:49 04/16/17 22:59 04/17/17 00:55 White Blood Count 5.53 K/uL (4.8-10.8) Red Blood Count 4.75 M/uL (4.7-6.1) Hemoglobin 15.2 g/dL (14.0-18.0) Hematocrit 43.0 % (42-52) Mean Corpuscular Volume 90.5 fL (80-100) Mean Corpuscular Hemoglobin 32.0 pg (25-34) Mean Corpuscular Hemoglobin Concent 35.3 g/dl (32-36) Platelet Count 280 K/uL (130-400) Mean Platelet Volume 8.6 fL (7.4-10.4) Neutrophils (%) (Auto) 57.2 % Lymphocytes (%) (Auto) 38.5 % Monocytes (%) (Auto) 3.6 % Eosinophils (%) (Auto) 0.2 % Basophils (%) (Auto) 0.5 % Neutrophils # (Auto) 3.16 K/uL (1.4-6.5) Lymphocytes # (Auto) 2.13 K/uL (1.2-3.4) Monocytes # (Auto) 0.20 K/uL (0.11-0.59) Eosinophils # (Auto) 0.01 K/uL (0-0.5) Basophils # (Auto) 0.03 K/uL (0-0.2) RDW Standard Deviation 48.9 fL (36.4-46.3) RDW Coefficient of Variation 14.7 % (11.5-14.5) Immature Granulocyte % (Auto) 0.0 % Immature Granulocyte # (Auto) 0.00 K/uL (0.00-0.02) Red Blood Cell Morphology Unremarkable Anion Gap 12.0 mmol/L (3-11) Est Creatinine Clear Calc Drug Dose 99.7 ml/min Estimated GFR () 107.5 Estimated GFR (Non- 92.7 BUN/Creatinine Ratio 7.6 (10-20) Calcium Level 9.1 mg/dl (8.5-10.1) Total Bilirubin 1.1 mg/dl (0.2-1) Alanine Aminotransferase (ALT/SGPT) 27 U/L (12-78) Alkaline Phosphatase 77 U/L (45-117) Creatine Kinase MB 2.6 ng/ml (0.5-3.6) Creatine Kinase MB Ratio (0-3.0) Total Protein 7.5 gm/dl (6.4-8.2) Albumin 3.3 gm/dl (3.4-5.0) Thyroid Stimulating Hormone (TSH) 0.712 uIu/ml (0.300-4.500) Ethyl Alcohol mg/dL 184.0 mg/dl (0-3) Bedside Troponin I < 0.030 ng/ml (0-0.045) Direct Bilirubin 0.2 mg/dl (0-0.2) Aspartate Amino Transf (AST/SGOT) 28 U/L (15-37) Total Creatine Kinase 96 U/L (39-308) Medications Administered Medications (Trade) Dose Ordered Sig/Lm Route Start Time Stop Time Status Last Admin Dose Admin Multivitamins 10 ml/Thiamine HCl 100 mg/Folic Acid 1 mg/Sodium Chloride 1,011.2 ml @ 1,000 mls/ hr Q1H1M ONCE IV 04/16/17 22:30 04/16/17 23:30 DC 04/16/17 23:00 1,000 MLS/HR Lorazepam (Ativan Inj) 2 mg NOW STAT IV 04/16/17 22:17 04/16/17 22:20 DC 04/16/17 22:59 2 MG Ketorolac Tromethamine (Toradol Inj) 30 mg NOW STAT IV 04/17/17 00:09 04/17/17 00:10 DC 04/17/17 00:09 30 MG ECG Rate (beats per minute): 59 Rhythm: normal sinus (with sinus arrhythmia) Findings: no acute ischemic change, no ectopy Change: no significant change ED Course The patient was evaluated as above. Labs were drawn and IV access was obtained. Patient was medicated with 2 mg Ativan IV and a banana bag. Patient was reevaluated and looked much better, but was complaining of pain. He was given 30 g Toradol IV. Case management met with the patient and gave him information for rehabilitation facilities. Discharge instructions were reviewed with the patient. The patient verbalized understanding of my assessment and treatment plan and was discharged home in good condition. Medical Decision Differential diagnosis includes drug withdrawal, alcohol withdrawal, electrolyte abnormality, dehydration, among others. The patient is a 56-year-old male who presents today complaining of heroine withdrawal. The patient was initially shaking and diaphoretic. He was given 2 mg of Ativan for this reason. He was given a banana bag. Labs revealed no leukocytosis or concerning anemia. No significant electrolyte abnormalities. Alcohol was elevated at 183. Troponin was not elevated. EKG was interpreted by myself and shows no acute ischemic changes. Patient does not require hospitalization at this time. He was given resources for outpatient rehabilitation facilities. The patient was independently evaluated by Dr. Sauer, ED attending physician , who agreed with my assessment and treatment plan. Impression Primary Impression: Opioid withdrawal Departure Information Dispostion Home / Self-Care Condition GOOD Prescriptions Unable to Obtain Active Prescriptions or Reported Meds Referrals No Doctor, Assigned (PCP) Patient Instructions [facility] Additional Instructions Do not use anymore drugs. You have been provided with information for rehabilitation facilities. You may contact one of these. Stay well hydrated. Follow up with your PCP.
== END 2017-04-17 02:09 | disposition home or self-care (01) ==
LOC: C.EDB 21:59
DX: F11.23 Opioid dependence with withdrawal (principal); I10 Essential (primary) hypertension; M19.90 Unspecified osteoarthritis, unspecified site; M54.9 Dorsalgia, unspecified; G89.29 Other chronic pain; F43.10 Post-traumatic stress disorder, unspecified; Z83.3 Family history of diabetes mellitus; Z82.49 Family history of ischemic heart disease and other diseases of the circulatory system; F17.210 Nicotine dependence, cigarettes, uncomplicated; R11.0 Nausea

== ENCOUNTER 2017-04-17 05:11 | Emergency (ER) | payer OTHER ==
[~2017-04-17] VITALS: Ht 180.3 cm; Wt 83.2 kg
[2017-04-17 05:17] VITALS: TEMP 37; Ht 180.3 cm; Wt 83.2 kg
[2017-04-17] MEDS ORDERED: CLONIDINE HCL 0.3 MG/24 HR TRANSDERM SYS TD STA (05:23)
[2017-04-17] MEDS ORDERED: KETOROLAC TROMETHAMINE 30 MG/ML VIAL IV STA (05:23)
[2017-04-17] MEDS ORDERED: DiphenhydrAMINE HCL 50 MG/ML VIAL IV STA ×2 (05:23→13:13)
[2017-04-17] MEDS ORDERED: PROCHLORPERAZINE 5 MG/ML 2 ML VIAL IV STA (05:23)
[2017-04-17] MEDS ORDERED: SODIUM CHLORIDE 0.9% 1000ML 1,000 ML IV STA ×2 (05:23→13:13)
--- NOTE | 2017-04-17 05:27 | EMERGENCY ROOM VISIT NOTE ---
History Report prepared by Kentrell: Beatriz Vazquez Under the Supervision of: Dr. Sergey Rodriguez M.D. First contact with patient: 05:15 Chief Complaint: OTHER COMPLAINT Stated Complaint: NAUSEA,VOMITING,WEAK,SICK IN STOMACH History of Present Illness The patient is a 56 year old male who presents to the Emergency Room with complaints of weakness beginning prior to arrival. He rates the pain at a 7/10. The patient was discharged earlier today from the ER. The patient states that he drinks alcohol on a daily basis and also uses heroin. He also complains of abdominal pain. Source of History: patient Onset: prior to arrival Position: other (global) Symptom Intensity: rated at a 7/10 Quality: other (weakness) Associated Symptoms: + abdominal pain Review of Systems See HPI for pertinent positives & negatives. A total of 10 systems reviewed and were otherwise negative. Past Medical & Surgical Medical Problems: (1) Alcohol withdrawal delirium (2) Benign hypertension (3) Bypass gastroenterostomy (4) Chronic back pain (5) Delirium tremens (6) Opioid withdrawal (7) Osteoarthritis (8) PTSD (post-traumatic stress disorder) (9) Replacement of total knee joint Surgical Problems: (1) History of hip replacement (2) History of knee replacement Family History Diabetes mellitus Heart disease Social History Smoking Status: Current Every Day Smoker Alcohol Use: heavy Drug Use: other Marital Status: Housing Status: lives with family Occupation Status: employed Current/Historical Medications Unable to Obtain Active Prescriptions or Reported Meds Allergies Coded Allergies: No Known Allergies (Verified , 04/17/17) Physical Exam Vital Signs Date Time Temp Pulse Resp B/P (MAP) Pulse Ox O2 Delivery O2 Flow Rate FiO2 04/17/17 05:17 37.0 75 16 152/86 98 Room Air Physical Exam GENERAL: Patient is a healthy-appearing well-nourished male HEAD: Normocephalic atraumatic EYES: Ocular movements intact pupils equal and react to light OROPHARYNX mucous membranes are moist no exudates present no erythema or edema present NECK: Supple no nuchal rigidity CHEST: Good equal expansion LUNGS: Clear and equal to auscultation CARDIAC: Normal S1 and S2 ABDOMEN: Soft nontender no guarding BACK: No CVA tenderness EXTREMITIES: No pain upon palpation normal muscle strength in all groups no clubbing cyanosis or edema NEURO: Patient is following commands and answering questions appropriately. Alert and oriented x3 Cranial Nerves 2-12 grossly intact Medical Decision & Procedures Laboratory Results Test 04/17/17 05:23 04/17/17 05:37 Bedside Glucose 134 mg/dl (70-99) ED Course 0520: Past medical records reviewed. The patient was evaluated in room A2. A complete history and physical examination was performed. 0523: Ordered Clonidine HCl 1 patch TD, Toradol Inj 30 mg IV, Benadryl Inj 50 mg IV, Compazine Inj 10 mg IV, Sodium Chloride 1,000 ml @ 999 mls/hr IV. Medical Decision This is a 56-year-old male who presents emergency department complaining of shakiness. The patient reports he drinks a large amount of alcohol and is worried he is going into withdrawal. For this reason a clonidine patch was applied however I will note that the patient is not tachycardic and does not appear to be in acute distress. An IV was established, the patient was given normal saline bolus, Toradol, Compazine, Benadryl. I do feel that the patient should most likely be discussed with case management for an appropriate disposition when his laboratory work is back. The patient was signed out to Dr. garcía at change of shift pending laboratory results. Impression Primary Impression: Nausea Scribe Attestation The scribe's documentation has been prepared under my direction and personally reviewed by me in its entirety. I confirm that the note above accurately reflects all work, treatment, procedures, and medical decision making performed by me. Departure Information Dispostion Still a Patient Prescriptions Unable to Obtain Active Prescriptions or Reported Meds Referrals No Doctor, Assigned (PCP) Patient Instructions My [facility]
[2017-04-17 06:29] LABS: BASO % 0.2 %; BASO ABS # 0.01 K/uL (0-0.2); COMPLETE YES; IG% 0.2 %; LYMPH % 30.6 %; LYMPH ABS # 1.58 K/uL (1.2-3.4); MEAN CELL VOLUME 89.1 fL (80-100); MEAN CORPUSCULAR HEMOGLOBIN 30.4 pg (25-34); MEAN CORPUSCULAR HGB CONC 34.1 g/dl (32-36); MEAN PLATELET VOLUME 8.4 fL (7.4-10.4); MONO % 4.6 %; NEUT % 64.4 %; PLATELET COUNT 262 K/uL (130-400); WHITE BLOOD COUNT 5.17 K/uL (4.8-10.8)
[2017-04-17 06:45] VITALS: O2SAT 98
[2017-04-17 07:03] LABS: BUN/CREATININE RATIO 9.1 (10-20); CALCIUM 8.8 mg/dl (8.5-10.1); CREATININE 0.96 mg/dl (0.60-1.40)
[2017-04-17 07:15] LABS: THYROID STIMULATING HORMONE 0.769 uIu/ml (0.300-4.500)
[2017-04-17 08:52] LABS: URINE APPEARANCE CLEAR (CLEAR); URINE COLOR DK YELLOW; URINE NITRITE NEG (NEG); URINE SPECIFIC GRAVITY 1.026 (1.000-1.030); UROBILINOGEN NEG (NEG)
[2017-04-17 09:08] LABS: BENZODIAZEPINE, URINE NEG (NEG); COCAINE,URINE NEG (NEG); PHENCYCLIDINE, URINE NEG (NEG)
[2017-04-17 09:09] LABS: MANUAL MICROSCOPIC REQUIRED? NO; REVIEW REQ? NO; URINE BILIRUBIN NEG (NEG)
[2017-04-17] MEDS ORDERED: THIAMINE HCL 100 MG TAB PO STA (10:24)
[2017-04-17] MEDS ORDERED: LORAZEPAM 1 MG TAB SL STA (10:24)
[2017-04-17] MEDS ORDERED: ALUMINUM/MAGNESIUM SUSP 30 ML UDC PO STA (10:24)
--- NOTE | 2017-04-17 10:33 | EMERGENCY ROOM VISIT NOTE ---
ED Visit Note First contact with patient: 10:20 I seen and examined the patient at bedside following sign out at change of shift from Dr. Rodriguez. Patient with a history of alcohol and drug use, is agreeable with plan for inpatient rehabilitation. No evidence currently bedside or emergent vital signs of significant alcohol withdrawal or delirium tremens. Patient denies history of DTs, believes he may have had a seizure in the past. Patient complaining of mild abdominal pain and nausea. Requesting additional nausea medications as well as Ativan. Patient has been sipping brina thu without any problems or vomiting. Additional medications ordered and patient will be reevaluated. Discussed with psych telephonic case manager for inpatient rehab referral. CT results with no acute intrabdominal process. Additional labs adequate within normal range.
--- NOTE | 2017-04-17 11:04 | DIAGNOSTIC IMAGING REPORT ---
ABD/PELVIS NO IV OR ORAL CONT HISTORY:56 yearsMaleabd pain, nausea, hx gastric bypass COMPARISON: 11/22/2016 CT study. TECHNIQUE: Multiple axial CT images of the abdomen and pelvis were obtained without IV contrast. FINDINGS: Lung bases are clear. No pneumoperitoneum identified. Inferior cardiac chambers are unremarkable. The liver, spleen, gallbladder, pancreas and adrenal glands are within normal limits. Kidneys are unremarkable without nephrolithiasis. Urinary bladder is partially collapsed. The odontoid aorta has mild atherosclerotic plaquing. No bulky retroperitoneal adenopathy. Prior gastric bypass. No surrounding fluid collections or evidence of obstruction. No large volume ascites. There is unchanged low attenuating collection, 2.5 x 2.0 cm within the left inguinal tissues. There is mild body wall edema. The bones are intact. Right hip arthroplasty noted. No significant degenerative changes of the spine. IMPRESSION: 1. No acute intra-abdominal or intrapelvic abnormality identified. 2. Prior gastric bypass. 3. Unchanged 2.5 cm collection of the left inguinal region. The above report was generated using voice recognition software. It may contain grammatical, syntax or spelling errors. Electronically signed by: Jerome Klein 04/17/2017 11:03 AM Dictated Date/Time: 04/17/2017 10:57 AM
[2017-04-17 11:47] LABS: MAGNESIUM 1.8 mg/dl (1.8-2.4)
[2017-04-17] MEDS ORDERED: NICOTINE 21 MG/24 HR TDSY ONE (13:22)
[2017-04-17] MEDS ORDERED: LORAZEPAM 2 MG/ML 1 ML VIAL IV STA (13:27)
[2017-04-17 13:32] VITALS: BP 160/94; PULSE 60; O2SAT 100
[2017-04-17] MEDS ORDERED: LORAZEPAM 2 MG/ML 1 ML VIAL IM STA (15:35)
--- NOTE | 2017-04-17 16:26 | EMERGENCY ROOM VISIT NOTE ---
ED Visit Note The patient was taken in signout from Dr. Trimble at the change of shift. Please see that note for details. The patient was pending acute inpatient rehab placement. No rehab beds were available tonight. The patient demanded discharge and was provided a list of facilities to call. He is not suicidal or homicidal. He is calm and not exhibiting signs of withdrawal. He was referred back to his primary doctor deidra. He was encouraged to return to the ER as necessary at any time.
[2017-04-18] MEDS ORDERED: NICOTINE 21 MG/24 HR TDSY TD SCH (09:00)
[2017-04-19 13:35] LABS: COD UR NEGATIVE NG/ML (CUTOFF=50); HYDROCOD UR NEGATIVE NG/ML (CUTOFF=50); HYDROMOR UR NEGATIVE NG/ML (CUTOFF=50); MORPHINE UR 768 NG/ML (CUTOFF=50); NORHYDROCODONE CONF UR NEGATIVE NG/ML (CUTOFF=50); OXYMORPH UR NEGATIVE NG/ML (CUTOFF=50)
== END 2017-04-17 16:41 | disposition home or self-care (01) ==
LOC: C.EDB 05:12 → C.EDA 16:41
DX: R11.0 Nausea (principal); F11.23 Opioid dependence with withdrawal; I10 Essential (primary) hypertension; M54.9 Dorsalgia, unspecified; G89.29 Other chronic pain; M19.90 Unspecified osteoarthritis, unspecified site; F43.10 Post-traumatic stress disorder, unspecified; Z83.3 Family history of diabetes mellitus; Z82.49 Family history of ischemic heart disease and other diseases of the circulatory system; F17.210 Nicotine dependence, cigarettes, uncomplicated

== ENCOUNTER 2017-04-19 18:04 | Observation (INO) | payer OTHER ==
[~2017-04-19] VITALS: Ht 182.9 cm; Wt 88.1 kg
[2017-04-19 18:21] VITALS: O2SAT 97
[2017-04-19] MEDS ORDERED: SODIUM CHLORIDE 0.9% 1000ML 1,000 ML IV STA ×4 (18:29→21:08)
[2017-04-19] MEDS ORDERED: PANTOprazole INJ 40 MG in SYRINGE 0 ML IV ONE (18:30)
--- NOTE | 2017-04-19 18:38 | EMERGENCY ROOM VISIT NOTE ---
History Report prepared by Kentrell: Estella Lanza Under the Supervision of: Dr. Lauren Trimble D.O. First contact with patient: 18:09 Chief Complaint: TACHYCARDIA Stated Complaint: TROUBLE BREATHING, HEART RACING History of Present Illness The patient is a 56 year old male who presents to the Emergency Room with complaints of persistent tachycardia that began prior to arrival. The patient states that he was recently evaluated in the emergency department for nausea and vomiting. He states that since being discharged he has not been able to eat any food. The patient states that he has been experiencing dizziness, lightheaded, chest heaviness, tachycardia, and shortness of breath for the past two hours. The patient states that he did not go to rehab after leaving the emergency department. He states that he did start drinking after leaving, but did not use any heroin. The patient additionally reports melena. Source of History: patient Onset: prior to arrival Position: other (global) Quality: other (tachycardia) Timing: other (persistent) Associated Symptoms: + chest pain (heaviness), + SOB, + melena Note: Associated Symptoms: dizziness, lightheadedness Review of Systems See HPI for pertinent positives & negatives. A total of 10 systems reviewed and were otherwise negative. Past Medical & Surgical Medical Problems: (1) Alcohol withdrawal delirium (2) Benign hypertension (3) Bypass gastroenterostomy (4) Chronic back pain (5) Delirium tremens (6) Melena (7) Opioid withdrawal (8) Osteoarthritis (9) PTSD (post-traumatic stress disorder) (10) Replacement of total knee joint Surgical Problems: (1) History of hip replacement (2) History of knee replacement Family History Diabetes mellitus Heart disease Social History Smoking Status: Current Every Day Smoker Alcohol Use: heavy Drug Use: other Marital Status: Housing Status: lives with family Occupation Status: employed Current/Historical Medications Scheduled PRN Meclizine Hcl (Meclizine Hcl), 1 TAB PO TID PRN for Dizziness or Vertigo Allergies Coded Allergies: No Known Allergies (Verified , 04/17/17) Physical Exam Vital Signs Date Time Temp Pulse Resp B/P (MAP) Pulse Ox O2 Delivery O2 Flow Rate FiO2 04/20/17 01:30 60 18 100/70 98 Room Air 04/20/17 00:30 68 18 104/69 96 Room Air 04/19/17 22:57 73 04/19/17 22:30 81 16 110/66 97 Room Air 04/19/17 22:07 66 12 113/76 97 Room Air 04/19/17 21:00 67 16 98/64 97 Room Air 04/19/17 20:05 77 18 100/61 97 Room Air 04/19/17 19:54 71 18 84/54 94 Room Air 04/19/17 19:36 71 16 87/54 93 Room Air 04/19/17 19:05 77 04/19/17 18:41 83 18 90/50 97 Room Air 04/19/17 18:39 98 Room Air 04/19/17 18:21 85 16 62/46 98 Room Air 04/19/17 18:21 97 Room Air 04/19/17 18:05 36.8 124 18 72/46 97 Room Air Physical Exam GENERAL: alert, ill appearing, well nourished, no distress, non-toxic EYE EXAM: normal conjunctiva, PERRL and EOM's grossly intact OROPHARYNX: no exudate, no erythema, lips, buccal mucosa, and tongue normal and mucous membranes are dry. NECK: supple, no nuchal rigidity, no adenopathy, non-tender LUNGS: Clear to auscultation. Normal chest wall mechanics. No wheezes, rhonchi or rales. HEART: no murmurs, S1 normal and S2 normal ABDOMEN: Soft abdomen soft, mild, central abdominal tenderness, no rebound, guarding, no organomegaly, no pulsatile masses, normo-active bowel sounds. BACK: Back is symmetrical on inspection and there is no deformity, no midline tenderness, no CVA tenderness. SKIN: no rashes and no bruising UPPER EXTREMITIES: upper extremities are grossly normal. LOWER EXTREMITIES: No pitting edema. Normal pulses. NEURO EXAM: Normal sensorium, cranial nerves II-XII grossly intact, normal speech, no gross weakness of arms, no gross weakness of legs. Moves all extremities, no facial droop, no dysarthria. Medical Decision & Procedures ER Provider Diagnostic Interpretation: Radiology results have been interpreted by the radiologist and reviewed by me. PA CHEST WITH ABDOMINAL SERIES CLINICAL HISTORY: Generalized abdominal pain. Dyspnea. FINDINGS: 2 PA chest radiographs are compared to study dated 04/16/2017. The cardiomediastinal silhouette is unremarkable. The lungs appear hyperinflated, likely due to good inspiratory result. No airspace consolidation or pleural effusion is identified. No pneumothorax is seen. The bony thorax is grossly intact. Supine and decubitus abdominal radiographs are correlated with abdominal CT dated 04/17/2017. Suture material is noted in the upper abdomen. There is a nonobstructed abdominal bowel gas pattern. No evidence of intraperitoneal free air is seen. There are no abnormal abdominal calcifications. The lumbosacral spine and bony pelvis appear intact. A right hip arthroplasty is in place. IMPRESSION: 1. No active disease in the chest. 2. Nonobstructed abdominal bowel gas pattern. Electronically signed by: Juan Panda M.D. 04/19/2017 7:57 PM Dictated Date/Time: 04/19/2017 7:54 PM Laboratory Results 04/19/17 18:20 Red Blood Count 4.51, Mean Corpuscular Volume 89.6, Mean Corpuscular Hemoglobin 30.8, Mean Corpuscular Hemoglobin Concent 34.4, Mean Platelet Volume 9.0 04/19/17 18:20 Test 04/19/17 18:20 04/19/17 19:06 04/20/17 00:56 White Blood Count 5.73 K/uL (4.8-10.8) Red Blood Count 4.51 M/uL (4.7-6.1) Hemoglobin 13.9 g/dL (14.0-18.0) Hematocrit 40.4 % (42-52) Mean Corpuscular Volume 89.6 fL (80-100) Mean Corpuscular Hemoglobin 30.8 pg (25-34) Mean Corpuscular Hemoglobin Concent 34.4 g/dl (32-36) Platelet Count 230 K/uL (130-400) Mean Platelet Volume 9.0 fL (7.4-10.4) RDW Standard Deviation 47.7 fL (36.4-46.3) RDW Coefficient of Variation 14.5 % (11.5-14.5) Neutrophils % (Manual) 41.2 % Lymphocytes % (Manual) 38.6 % Variant Lymphocytes % (manual) 14.9 % Monocytes % (Manual) 4.4 % Eosinophils % (Manual) 0.9 % Neutrophils # (Manual) 2.36 K/uL (1.4-6.5) Total Absolute Neutrophils 2.36 K/uL (1.4-6.5) Lymphocytes # (Manual) 2.21 K/uL (1.2-3.4) Absolute Variant Lymphocytes 0.85 K/uL Total Absolute Lymphocytes 3.07 K/uL (1.2-3.4) Monocytes # (Manual) 0.25 K/uL (0.11-0.59) Eosinophils # (Manual) 0.05 K/uL (0-0.5) Tear Drop Cells 1+ Prothrombin Time 9.9 SECONDS (9.0-12.0) Prothromb Time International Ratio 0.9 (0.9-1.1) Anion Gap 10.0 mmol/L (3-11) Est Creatinine Clear Calc Drug Dose 66.2 ml/min Estimated GFR () 65.6 Estimated GFR (Non- 56.6 BUN/Creatinine Ratio 4.4 (10-20) Calcium Level 8.9 mg/dl (8.5-10.1) Magnesium Level 1.9 mg/dl (1.8-2.4) Total Bilirubin 0.6 mg/dl (0.2-1) Aspartate Amino Transf (AST/SGOT) 20 U/L (15-37) Alanine Aminotransferase (ALT/SGPT) 21 U/L (12-78) Alkaline Phosphatase 68 U/L (45-117) Troponin I 0.016 ng/ml (0-0.045) Total Protein 6.5 gm/dl (6.4-8.2) Albumin 3.0 gm/dl (3.4-5.0) Globulin 3.5 gm/dl (2.5-4.0) Albumin/Globulin Ratio 0.9 (0.9-2) Lipase 372 U/L (73-393) Lactic Acid Level 1.4 mmol/L (0.4-2.0) Ethyl Alcohol mg/dL < 3.0 mg/dl (0-3) Bedside Glucose 77 mg/dl (70-99) Laboratory results per my review. Medications Administered Medications (Trade) Dose Ordered Sig/Lm Route Start Time Stop Time Status Last Admin Dose Admin Sodium Chloride 1,000 ml @ 999 mls/hr Q1H1M STAT IV 04/19/17 18:29 04/19/17 19:29 DC 04/19/17 18:29 999 MLS/HR Pantoprazole Sodium 40 mg/ Syringe 10 ml @ 5 mls/min NOW ONCE IV 04/19/17 18:30 04/19/17 18:32 DC 04/19/17 19:27 5 MLS/MIN Sodium Chloride 1,000 ml @ 999 mls/hr Q1H1M STAT IV 04/19/17 18:41 04/19/17 19:41 DC 04/19/17 18:55 999 MLS/HR Diazepam (Valium Inj) 2.5 mg NOW STAT IV 04/19/17 19:29 04/19/17 19:31 DC 04/19/17 19:34 2.5 MG Sodium Chloride 1,000 ml @ 999 mls/hr Q1H1M STAT IV 04/19/17 19:29 04/19/17 20:29 DC 04/19/17 19:34 999 MLS/HR Multivitamins 10 ml/Thiamine HCl 100 mg/Folic Acid 1 mg/Sodium Chloride 1,011.2 ml @ 500 mls/ hr Q2H2M ONCE IV 04/19/17 19:30 04/19/17 21:31 DC 04/19/17 20:04 500 MLS/HR Sodium Chloride 1,000 ml @ 999 mls/hr Q1H1M STAT IV 04/19/17 21:08 04/19/17 22:08 DC 04/19/17 21:17 999 MLS/HR Sodium Chloride 1,000 ml @ 250 mls/hr Q4H STAT IV 04/20/17 00:44 04/20/17 03:54 DC 04/20/17 01:01 250 MLS/HR ECG Indication: chest pain, SOB/dyspnea, tachycardia Rate (beats per minute): 96 Rhythm: sinus rhythm Findings: no acute ischemic change, other (left axis, normal intervals) ED Course 182: The patient was evaluated in room B3B. A complete history and physical exam was performed. 1829: Ordered Sodium Chloride 1000 ml @ 999 mls/hr IV, Pantoprazole Sodium 40 mg /Syringe 10 ml @ 5 mls/min IV. 0: I reevaluated the patient and his pressure is now 90/50 mmHg. 1840: Ordered Sodium Chloride 1000 ml @ 999 mls/hr IV. 1928: Ordered Sodium Chloride 1000 ml @ 999 mls/hr IV, Valium Inj 2.5 mg IV, Multivitamins 10 ml/Thiamine HCl 100 mg/Folic Acid 1 mg/Sodium Chloride 1011.2 ml @ 500 mls/hr IV. 2107: Ordered Sodium Chloride 1000 ml @ 999 mls/hr IV. 3: I reevaluated the patient and his pressure is better. He states that he still has abdominal pain. I discussed all the exam findings with him and I discussed the treatment plan. He verbalized complete understanding and agreement. He is going to be evaluated for further treatment. 0044: Ordered Sodium Chloride 1000 ml @ 250 mls/hr IV. 010: The patients case with RAHEL Holcomb. He and his team are going to evaluate the patient for further treatment. Medical Decision Differential diagnoses includes but is not limited to gastritis, peptic ulcer disease, GERD, gallbladder disease, pancreatitis, small bowel obstruction, acute coronary syndrome, pericarditis, ischemic bowel, irritable bowel disease, irritable bowel syndrome, appendicitis, diverticulitis, malignancy, hernia, urinary tract infection, torsion, perforation, trauma, infectious. Medication Reconciliation: I attest that I have personally reviewed the patient' s current medication list. Pt with hx of etoh and drug abuse and recent visits to the ER. Hx of etoh withdrawal. Pt very hypotensive and ill appearing on initial presentation. Pt required 4 L of IVF to hold SBP >100. Pt complaining of shaking and feeling as though he was going into etoh witthdrawal, however not overtly tremulous. Unable to initially medicate due to concern for BP. Labs reassuring, xrays unremarkable. Pt with c/o abd pain similar to 2 nights ago, no abnormalities seen on CT. Pt stated he hadn't eaten in 48 hours. Given risk of etoh withdrawal/seizures, profound hypotension on arrival without evidence of bacteremia/sepsis, pt admitted for continued treatment and evaluation. Pt at risk for GI bleed given etoh abuse, rectal heme negative despite pt complaints of black stools. Pt given protonix as a precaution. Doubt perf, acs, dissection, aaa, pe, colitis, sbo, no evidence of pancreatitis clinically. Consults Time Called: [phone] Consulting Physician: RAHEL Holcomb Returned Call: [phone] Cuevas, resident with RAHEL Holcomb. He and his team are going to evaluate the patient for further treatment. Impression Primary Impression: Hypotension Additional Impressions: Dehydration Alcohol withdrawal Drug abuse Critical Care I have personally spent greater than 40 minutes of critical care time in the direct management of this patient. This includes bedside care, interpretation of diagnostic studies, and testing, discussion with consultants, patient, and family members, and other required patient management activities. This 40 minutes is in excess of all separately billable procedures. Scribe Attestation The scribe's documentation has been prepared under my direction and personally reviewed by me in its entirety. I confirm that the note above accurately reflects all work, treatment, procedures, and medical decision making performed by me. Departure Information Dispostion Being Evaluated By Hospitalist Referrals No Doctor, Assigned (PCP) Problem Qualifiers Primary Impression: Hypotension Hypotension type: unspecified hypotension type Qualified Codes: I95.9 - Hypotension, unspecified Additional Impressions: Alcohol withdrawal Complication of substance-induced condition: uncomplicated Qualified Codes: F10.230 - Alcohol dependence with withdrawal, uncomplicated
[2017-04-19 18:53] LABS: HEMATOCRIT 40.4 % (42-52); MEAN CELL VOLUME 89.6 fL (80-100); MEAN CORPUSCULAR HEMOGLOBIN 30.8 pg (25-34); MEAN CORPUSCULAR HGB CONC 34.4 g/dl (32-36); PLATELET COUNT 230 K/uL (130-400); RED BLOOD COUNT 4.51 M/uL (4.7-6.1); WHITE BLOOD COUNT 5.73 K/uL (4.8-10.8)
[2017-04-19 19:10] LABS: INR 0.9 (0.9-1.1); PROTHROMBIN TIME (PATIENT) 9.9 SECONDS (9.0-12.0)
[2017-04-19 19:21] LABS: ALB/GLOB RATIO 0.9 (0.9-2); BUN/CREATININE RATIO 4.4 (10-20); CALCIUM 8.9 mg/dl (8.5-10.1); CREATININE 1.4 mg/dl (0.60-1.40); MAGNESIUM 1.9 mg/dl (1.8-2.4); POTASSIUM 3.4 mmol/L (3.5-5.1)
[2017-04-19] MEDS ORDERED: DIAZEPAM INJ 5 MG/ML 2 ML CARP IV STA (19:29)
[2017-04-19] MEDS ORDERED: MULTI-VITAMIN INFUSION INJ 10 ML, THIAMINE HCL INJ 100 MG, FoLIC ACID INJ 1 MG in SODIU... IV ONE (19:30)
[2017-04-19 19:43] LABS: COMPLETE YES; EOSINOPHIL % 0.9 %; LYMPH ABS # 2.21 K/uL (1.2-3.4); LYMPHOCYTE % 38.6 %; NEUTROPHILS % 41.2 %; TEAR DROP CELLS 1+; VARIANT LYM ABS # 0.85 K/uL; VARIANT LYMPHOCYTE % 14.9 %
--- NOTE | 2017-04-19 19:58 | DIAGNOSTIC IMAGING REPORT ---
PA CHEST WITH ABDOMINAL SERIES CLINICAL HISTORY: Generalized abdominal pain. Dyspnea. FINDINGS: 2 PA chest radiographs are compared to study dated 04/16/2017. The cardiomediastinal silhouette is unremarkable. The lungs appear hyperinflated, likely due to good inspiratory result. No airspace consolidation or pleural effusion is identified. No pneumothorax is seen. The bony thorax is grossly intact. Supine and decubitus abdominal radiographs are correlated with abdominal CT dated 04/17/2017. Suture material is noted in the upper abdomen. There is a nonobstructed abdominal bowel gas pattern. No evidence of intraperitoneal free air is seen. There are no abnormal abdominal calcifications. The lumbosacral spine and bony pelvis appear intact. A right hip arthroplasty is in place. IMPRESSION: 1. No active disease in the chest. 2. Nonobstructed abdominal bowel gas pattern. Electronically signed by: Juan Panda M.D. 04/19/2017 7:57 PM Dictated Date/Time: 04/19/2017 7:54 PM
[2017-04-20] MEDS ORDERED: SODIUM CHLORIDE 0.9% 1000ML 1,000 ML IV STA (00:44)
[2017-04-20] MEDS ORDERED: MAGNESIUM HYDROXIDE SUSP 30 ML UDC PO PRN (01:30)
[2017-04-20] MEDS ORDERED: ONDANSETRON INJ 2 MG/ML 2 ML VIAL IV PRN (01:30)
[2017-04-20] MEDS ORDERED: ACETAMINOPHEN 325 MG TAB PO PRN (01:30)
[2017-04-20] MEDS ORDERED: POLYETHYLENE (MIRALAX) 17 GM PACK PO PRN (01:30)
[2017-04-20] MEDS ORDERED: IV FLUIDS COMPLETED PRN (02:00)
[2017-04-20 02:27] LABS: HEMATOCRIT 35.3 % (42-52)
--- NOTE | 2017-04-20 03:07 | History and Physical ---
History & Physical Date & Time of Service: Apr 20, 2017 at 03:04 Chief Complaint: Trouble Breathing, Heart Racing Primary Care Physician: No Doctor, Assigned History of Present Illness Source: patient Past Medical/Surgical History Medical Problems: (1) Benign hypertension Status: Chronic (2) Bypass gastroenterostomy Status: Resolved (3) Chronic back pain Status: Chronic (4) Osteoarthritis Status: Chronic (5) Replacement of total knee joint Status: Resolved Surgical Problems: (1) History of hip replacement Status: Resolved (2) History of knee replacement Status: Resolved Family History Diabetes mellitus Heart disease Social History Smoking Status: Current Every Day Smoker Drug Use: other Marital Status: Housing status: lives with family Occupational Status: employed Immunizations History of Influenza Vaccine: Yes Influenza Vaccine Date: Aug 17, 2012 History of Tetanus Vaccine?: Unknown Tetanus Immunization Date: Oct 08, 2007 History of Pneumococcal: Unknown History of Hepatitis B Vaccine: Unknown Hepatitis Immunization Date: Oct 08, 2006 Multi-Drug Resistant Organisms History of MDRO: No Allergies Coded Allergies: No Known Allergies (Verified , 04/17/17) Home Medications Unable to Obtain Active Prescriptions or Reported Meds Review of Systems Constitutional: No fever, No chills Eyes: No worsening of vision ENT: No hearing loss Respiratory: No cough, No sputum, No shortness of breath Cardiovascular: No chest pain Abdomen: + pain, + vomiting, + diarrhea, + GI bleeding (dark stools) Genitourinary - Male: No hematuria, No dysuria Neurologic: No memory loss, No paralysis, No weakness Psychiatric: No depression symptoms Endocrine: No fatigue Hematologic / Lymphatic: No abnormal bleeding/bruising Integumentary: No rash Physical Exam Vital Signs Date Time Temp Pulse Resp B/P (MAP) Pulse Ox O2 Delivery O2 Flow Rate FiO2 04/20/17 02:12 58 04/20/17 01:30 60 18 100/70 98 Room Air 04/20/17 00:30 68 18 104/69 96 Room Air 04/19/17 22:57 73 04/19/17 22:30 81 16 110/66 97 Room Air 04/19/17 22:07 66 12 113/76 97 Room Air 04/19/17 21:00 67 16 98/64 97 Room Air 04/19/17 20:05 77 18 100/61 97 Room Air 04/19/17 19:54 71 18 84/54 94 Room Air 04/19/17 19:36 71 16 87/54 93 Room Air 04/19/17 19:05 77 04/19/17 18:41 83 18 90/50 97 Room Air 04/19/17 18:39 98 Room Air 04/19/17 18:21 85 16 62/46 98 Room Air 04/19/17 18:21 97 Room Air 04/19/17 18:05 36.8 124 18 72/46 97 Room Air General Appearance: WD/WN, no apparent distress Head: normocephalic Eyes: normal inspection ENT: hearing grossly normal Neck: supple Respiratory/Chest: chest non-tender, lungs clear, normal breath sounds, no respiratory distress, no accessory muscle use Cardiovascular: regular rate, rhythm Abdomen/GI: normal bowel sounds, non tender, + tenderness Back: normal inspection Neurologic/Psych: alert, normal mood/affect, oriented x 3 Diagnostics Laboratory Results Results Past 24 Hours Test 04/19/17 18:20 04/19/17 19:06 04/20/17 00:56 04/20/17 02:19 Range/Units White Blood Count 5.73 4.8-10.8 K/uL Red Blood Count 4.51 4.7-6.1 M/uL Hemoglobin 13.9 12.0 14.0-18.0 g/dL Hematocrit 40.4 35.3 42-52 % Mean Corpuscular Volume 89.6 80-100 fL Mean Corpuscular Hemoglobin 30.8 25-34 pg Mean Corpuscular Hemoglobin Concent 34.4 32-36 g/dl Platelet Count 230 130-400 K/uL Mean Platelet Volume 9.0 7.4-10.4 fL RDW Standard Deviation 47.7 36.4-46.3 fL RDW Coefficient of Variation 14.5 11.5-14.5 % Neutrophils % (Manual) 41.2 % Lymphocytes % (Manual) 38.6 % Variant Lymphocytes % (manual) 14.9 % Monocytes % (Manual) 4.4 % Eosinophils % (Manual) 0.9 % Neutrophils # (Manual) 2.36 1.4-6.5 K/uL Total Absolute Neutrophils 2.36 1.4-6.5 K/uL Lymphocytes # (Manual) 2.21 1.2-3.4 K/uL Absolute Variant Lymphocytes 0.85 K/uL Total Absolute Lymphocytes 3.07 1.2-3.4 K/uL Monocytes # (Manual) 0.25 0.11-0.59 K/uL Eosinophils # (Manual) 0.05 0-0.5 K/uL Tear Drop Cells 1+ Prothrombin Time 9.9 9.0-12.0 SECONDS Prothromb Time International Ratio 0.9 0.9-1.1 Sodium Level 140 136-145 mmol/L Potassium Level 3.4 3.5-5.1 mmol/L Chloride Level 106 98-107 mmol/L Carbon Dioxide Level 24 21-32 mmol/L Anion Gap 10.0 3-11 mmol/L Blood Urea Nitrogen 6 7-18 mg/dl Creatinine 1.40 0.60-1.40 mg/dl Est Creatinine Clear Calc Drug Dose 66.2 ml/min Estimated GFR () 65.6 Estimated GFR (Non- 56.6 BUN/Creatinine Ratio 4.4 10-20 Random Glucose 69 70-99 mg/dl Calcium Level 8.9 8.5-10.1 mg/dl Magnesium Level 1.9 1.8-2.4 mg/dl Total Bilirubin 0.6 0.2-1 mg/dl Aspartate Amino Transf (AST/SGOT) 20 15-37 U/L Alanine Aminotransferase (ALT/SGPT) 21 12-78 U/L Alkaline Phosphatase 68 45-117 U/L Troponin I 0.016 0-0.045 ng/ml Total Protein 6.5 6.4-8.2 gm/dl Albumin 3.0 3.4-5.0 gm/dl Globulin 3.5 2.5-4.0 gm/dl Albumin/Globulin Ratio 0.9 0.9-2 Lipase 372 73-393 U/L Lactic Acid Level 1.4 0.4-2.0 mmol/L Ethyl Alcohol mg/dL < 3.0 0-3 mg/dl Bedside Glucose 77 70-99 mg/dl Diagnostic Radiology [~ rep ct add3]] PA CHEST WITH ABDOMINAL SERIES CLINICAL HISTORY: Generalized abdominal pain. Dyspnea. FINDINGS: 2 PA chest radiographs are compared to study dated 04/16/2017. The cardiomediastinal silhouette is unremarkable. The lungs appear hyperinflated, likely due to good inspiratory result. No airspace consolidation or pleural effusion is identified. No pneumothorax is seen. The bony thorax is grossly intact. Supine and decubitus abdominal radiographs are correlated with abdominal CT dated 04/17/2017. Suture material is noted in the upper abdomen. There is a nonobstructed abdominal bowel gas pattern. No evidence of intraperitoneal free air is seen. There are no abnormal abdominal calcifications. The lumbosacral spine and bony pelvis appear intact. A right hip arthroplasty is in place. IMPRESSION: 1. No active disease in the chest. 2. Nonobstructed abdominal bowel gas pattern. Electronically signed by: Juan Panda M.D. 04/19/2017 7:57 PM Dictated Date/Time: 04/19/2017 7:54 PM Impression Assessment and Plan Attending Addendum: I physically seen and examined this patient, have supervised the medical residents activities, and agree with the H&P as noted above with the following exceptions: NONE The patient is awake, well-developed and adequately nourished, alert and oriented 3, normocephalic and atraumatic, lying in bed and in no acute distress. HEENT--PERRL, EOMI, mucous membranes and oropharynx dry. Neck--supple, no JVD or bruits, thyroid normal, trachea midline, no adenopathy. Heart--normal S1 and S2, no extra beats, no murmurs, rubs or gallops. Lungs--clear bilaterally but decreased throughout, no respiratory distress, no accessory muscle use. Abdomen--normal bowel sounds and soft, nontender and nondistended, no hernias or masses, no organomegaly. Extremities--no cyanosis, clubbing or edema. There are good distal pulses b/l. Dermatologic--normal skin turgor, normal color, warm and dry, no abnormal lymph nodes, no rash. Neurologic--cranial nerves II through XII grossly intact, motor and sensory examination normal. Rheumatologic--normal range of motion, nontender, muscles and joints. Psychiatric--normal affect. Assessment and Plan: 1. Self-described melenic stool with generalized abdominal pain--patient was heme-negative in the emergency department. He will be admitted to the telemetry unit for serial H&H's every 6 hours. He'll be kept nothing by mouth. Place on Protonix bolus and then drip per protocol Consult gastroenterology for possible EGD. Blood sugar was mildly low in the emergency department at 69 with a repeat a 77 , with the patient being asymptomatic. We placed on D5 half-normal saline with potassium chloride 20 mEq at 200 mils per hour. We'll follow serial BMP and magnesium levels. Blood pressure was also mildly low upon arrival at 72/46, which has responded to IV fluid bolus and will be continued on telemetry. Level of Care Telemetry Resuscitation Status FULL RESUSCITATION VTE Prophylaxis VTE Risk Assessment Done? Y/N: Yes Risk Level: Moderate
[2017-04-20 03:27] VITALS: BP 118/76; PULSE 63; TEMP 36.9; O2SAT 100; Ht 182.9 cm; Wt 88.1 kg
[2017-04-20] MEDS ORDERED: NSS + 20MEQ KCL 1000ML 1,000 ML IV SCH (04:00)
[2017-04-20] MEDS ORDERED: PANTOprazole INJ 40 MG in SYRINGE 0 ML IV SCH (09:00)
--- NOTE | 2017-04-22 05:05 | Discharge Summary ---
Discharge Summary Date of Service Apr 22, 2017. Discharge Summary On the morning of 04/20/2017, the nurses called to report that the patient was not willing to stay in the hospital because he wanted to eat ice cream and cake. He was advised that he was nothing by mouth for possible endoscopy in the morning due to a potential upper GI bleed, and that this would interfere with his study. The patient decided that he would not stay in the hospital, in spite of medically being advised to do so. He was advised of the potential of worsening bleeding, syncope, accident and , and he signed the AMA papers. He was discharged AMA, and was advised if he had any of the above or any other symptoms he was concerned about that he should report to the emergency department immediately.
== END 2017-04-20 04:56 | disposition home or self-care (01) ==
LOC: C.EDB 18:05 → C.2T 04-20 01:33 → ENRESERV 04-20 02:14
PROVIDERS: ADMIT Family Medicine; ATTEND Hospitalist
DX: I95.9 Hypotension, unspecified (principal); E86.0 Dehydration; F10.239 Alcohol dependence with withdrawal, unspecified; F19.10 Other psychoactive substance abuse, uncomplicated; I10 Essential (primary) hypertension; G89.29 Other chronic pain; M54.9 Dorsalgia, unspecified; M19.90 Unspecified osteoarthritis, unspecified site; F43.10 Post-traumatic stress disorder, unspecified; F17.210 Nicotine dependence, cigarettes, uncomplicated; Z83.3 Family history of diabetes mellitus; Z82.49 Family history of ischemic heart disease and other diseases of the circulatory system

== ENCOUNTER 2017-04-22 10:28 | Emergency (ER) | payer OTHER ==
[~2017-04-22] VITALS: Ht 182.9 cm; Wt 90.0 kg
[2017-04-22 10:33] VITALS: TEMP 36.7; Ht 182.9 cm; Wt 90.0 kg
[2017-04-22] MEDS ORDERED: MECLIZINE HCL 25 MG TAB PO STA (11:11)
[2017-04-22] MEDS ORDERED: MULTI-VITAMIN INFUSION INJ 10 ML, THIAMINE HCL INJ 100 MG, FoLIC ACID INJ 1 MG in SODIU... IV ONE (11:15)
[2017-04-22 11:50] LABS: BASO % 0.3 %; BASO ABS # 0.02 K/uL (0-0.2); COMPLETE YES; EOS % 0.6 %; HEMATOCRIT 38.1 % (42-52); IG% 0.2 %; LYMPH % 31.2 %; LYMPH ABS # 1.93 K/uL (1.2-3.4); MEAN CELL VOLUME 90.7 fL (80-100); MEAN CORPUSCULAR HEMOGLOBIN 30.7 pg (25-34); MEAN CORPUSCULAR HGB CONC 33.9 g/dl (32-36); MEAN PLATELET VOLUME 8.8 fL (7.4-10.4); MONO % 5.8 %; NEUT % 61.9 %; PLATELET COUNT 207 K/uL (130-400); WHITE BLOOD COUNT 6.19 K/uL (4.8-10.8)
[2017-04-22 11:58] LABS: INR 0.9 (0.9-1.1); PROTHROMBIN TIME (PATIENT) 9.9 SECONDS (9.0-12.0)
--- NOTE | 2017-04-22 12:03 | DIAGNOSTIC IMAGING REPORT ---
HEAD WITHOUT CONTRAST (CT) CT DOSE: 884.08 mGy.cm HISTORY: Mental status change eval for bleed TECHNIQUE: Multiaxial CT images of the head were performed without the use of intravenous contrast. Comparison: 12/09/2016 Findings: The paranasal sinuses and mastoid air cells are clear. The calvarium and skull base are intact. The ventricles and sulci are within normal limits. There is no mass, hematoma, midline shift, or acute infarct. Impression: No acute intracranial abnormality. The above report was generated using voice recognition software. It may contain grammatical, syntax or spelling errors. Electronically signed by: Efren Lizarraga M.D. 04/22/2017 12:02 PM Dictated Date/Time: 04/22/2017 12:01 PM
[2017-04-22 12:10] LABS: ALT/SGPT 18 U/L (12-78); AST/SGOT 19 U/L (15-37); BLOOD UREA NITROGEN 8 mg/dl (7-18); BUN/CREATININE RATIO 9.1 (10-20); CALCIUM 8.2 mg/dl (8.5-10.1); CARBON DIOXIDE 26 mmol/L (21-32); CHLORIDE 110 mmol/L (98-107); CREATININE 0.83 mg/dl (0.60-1.40); GLUCOSE 85 mg/dl (70-99); POTASSIUM 3.9 mmol/L (3.5-5.1); SODIUM 142 mmol/L (136-145)
[2017-04-22 12:13] LABS: ALKALINE PHOSPHATASE 62 U/L (45-117)
[2017-04-22] MEDS ORDERED: PROMETHAZINE HCL INJ 12.5 MG in SODIUM CHLORIDE 0.9% 50ML 50 ML IV STA (12:27)
[2017-04-22] MEDS ORDERED: LORAZEPAM 2 MG/ML 1 ML VIAL IV STA (12:32)
--- NOTE | 2017-04-22 13:41 | DIAGNOSTIC IMAGING REPORT ---
ORBITS FOR MRI HISTORY: Pre-MRI pre-MRI screening. COMPARISON: None. FINDINGS: There are no radiopaque foreign bodies identified within the orbits. IMPRESSION: No radiopaque foreign bodies identified within the orbits. The above report was generated using voice recognition software. It may contain grammatical, syntax or spelling errors. Electronically signed by: Efren Lizarraga M.D. 04/22/2017 1:40 PM Dictated Date/Time: 04/22/2017 1:39 PM
[2017-04-22] MEDS ORDERED: GADAVIST IV PRN (15:00)
--- NOTE | 2017-04-22 15:48 | DIAGNOSTIC IMAGING REPORT ---
MRA NECK COMBO HISTORY: Mental status change eval fr VBI TECHNIQUE: [id number] and gadolinium-enhanced MRA of the neck was performed both before and after the intravenous administration of contrast. All measurements were calculated based on NASCET criteria. COMPARISON STUDY: None. FINDINGS: The aortic arch and proximal great vessels are widely patent. There is no significant stenosis, occlusion, or dissection identified within the bilateral common carotid, internal carotid, or vertebral arteries. Tortuosity of the right vertebral artery within the upper cervical region. This most likely demonstrates tortuous vasculature, with subsequent flow turbulence, rather than a true stenosis IMPRESSION: No significant stenosis, occlusion, or dissection identified within the carotid or vertebral arteries. The above report was generated using voice recognition software. It may contain grammatical, syntax or spelling errors. Electronically signed by: Efren Lizarraga M.D. 04/22/2017 3:47 PM Dictated Date/Time: 04/22/2017 3:44 PM
--- NOTE | 2017-04-22 15:51 | DIAGNOSTIC IMAGING REPORT ---
BRAIN COMBO CLINICAL HISTORY: eval for stroke mental status change COMPARISON STUDY: 04/20/2006 FINDINGS: diffusion-weighted images are negative for an acute ischemic insult. 2 venous angiomas of the right cerebral hemisphere not felt to be significant clinically. Ventricular system is midline. There is no evidence for an abnormally enhancing lesion. Internal auditory canals appear symmetric. Sella and parasellar regions are unremarkable. Motion artifact is present throughout. IMPRESSION: Somewhat limited study due to patient motion. No acute process. No abnormal postcontrast enhancement. The above report was generated using voice recognition software. It may contain grammatical, syntax or spelling errors. Electronically signed by: Efren Lizarraga M.D. 04/22/2017 3:50 PM Dictated Date/Time: 04/22/2017 3:48 PM
[2017-04-22] MEDS ORDERED: MECL1TAB42 PO (16:04)
[2017-04-22 16:35] VITALS: BP 108/77; PULSE 78; O2SAT 99
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
== END 2017-04-22 16:40 | disposition home or self-care (01) ==
LOC: C.EDB 10:29 → C.EDC 16:40
DX: R42 Dizziness and giddiness (principal); D64.9 Anemia, unspecified; R11.10 Vomiting, unspecified; I10 Essential (primary) hypertension; M19.90 Unspecified osteoarthritis, unspecified site; F17.200 Nicotine dependence, unspecified, uncomplicated; Z96.659 Presence of unspecified artificial knee joint; Z96.649 Presence of unspecified artificial hip joint; Z83.3 Family history of diabetes mellitus

== ENCOUNTER 2017-12-18 12:13 | Emergency (ER) | payer OTHER ==
[~2017-12-18] VITALS: Ht 182.9 cm; Wt 77.0 kg
[2017-12-18 12:26] VITALS: TEMP 36.9; Ht 182.9 cm; Wt 77.0 kg
[2017-12-18] MEDS ORDERED: MoRPHine SULFATE 4 MG/ML 1 ML CARP\\VIAL IV STA ×3 (12:47→19:34)
[2017-12-18] MEDS ORDERED: CLONIDINE HCL 0.1 MG TAB PO ONE (13:00)
[2017-12-18] MEDS ORDERED: OPTIRAY 320 IV PRN (13:00)
--- NOTE | 2017-12-18 13:00 | EMERGENCY ROOM VISIT NOTE ---
History Report prepared by [place]: Doug Armstrong Under the Supervision of: Dr. Silvano Dumas M.D. First contact with patient: 12:29 Chief Complaint: ABDOMINAL PAIN Stated Complaint: STOMACH PAIN, IN AND OUT OF CONCIOUSNESS History of Present Illness The patient is a 57 year old black male with a history or Alcohol withdrawal delirium, Benign hypertension, Bypass gastroenterostomy, Chronic back pain, Delirium tremens, Melena, Opioid withdrawal, Osteoarthritis and PTSD (post- traumatic stress disorder) who presents to the Emergency Room with complaints of constant left lower quadrant abdominal pain. The patient describes his abdominal pain as an ache, and he cannot identify anything that makes the pain better or worse. He does have a history of Gastric Bypass Surgery. The patient' s daughter at bedside notes that the patient is currently withdrawing from heroin. He has not used in the past two days. The patient admits that he was using 14 bags of heroin per day. He denies any cough, but is having fevers and chills. The patient continued to complain of pain in his left lower extremity secondary to a sore. He has had this wound repaired before at a hospital in [place]. The patient denies any history of psychiatric disease. Source of History: patient, family Position: abdomen (LLQ) Quality: ache Timing: constant Modifying Factors (Worsening): other (N/A) Modifying Factors (Relieving): other (N/A) Associated Symptoms: + fevers, + chills, No cough Review of Systems See HPI for pertinent positives and negatives. A total of ten systems were reviewed and were otherwise negative. Past Medical & Surgical Medical Problems: (1) Alcohol withdrawal delirium (2) Benign hypertension (3) Bypass gastroenterostomy (4) Chronic back pain (5) Delirium tremens (6) Melena (7) Opioid withdrawal (8) Osteoarthritis (9) PTSD (post-traumatic stress disorder) (10) Replacement of total knee joint Surgical Problems: (1) History of hip replacement (2) History of knee replacement Family History Diabetes mellitus Heart disease Social History Smoking Status: Current Every Day Smoker Alcohol Use: heavy Drug Use: other Marital Status: Housing Status: lives with family Occupation Status: employed Current/Historical Medications No Active Prescriptions or Reported Meds Allergies Coded Allergies: No Known Allergies (Verified , 12/18/17) Physical Exam Vital Signs Date Time Temp Pulse Resp B/P (MAP) Pulse Ox O2 Delivery O2 Flow Rate FiO2 12/18/17 18:21 73 158/97 98 Room Air 12/18/17 16:24 58 163/99 97 Room Air 12/18/17 14:20 57 20 141/84 97 Room Air 12/18/17 12:26 36.9 81 20 160/103 98 Room Air Physical Exam GENERAL: Awake, alert, well-appearing, NAD HENT: Normocephalic, atraumatic. EYES: Normal conjunctiva. Sclera non-icteric. NECK: Supple. No nuchal rigidity. FROM. RESPIRATORY: CTAB, no rhonchi, wheezing, crackles CARDIAC: RRR, no MRG ABDOMEN: Soft, BS+, There is a midline abdominal incision over the central abdomen. There is mid epigastric TTP, no lower abdominal pain. This is a non- surgical abdomen. MSK: No chest wall TTP, no LE edema NEURO: GCS 15, CN 2-12 intact, moves all 4s on command SKIN: No rash or jaundice noted. There is an eschar over the anterior tibia. There are [address] The site is clean dry and intact. Medical Decision & Procedures ER Provider Diagnostic Interpretation: Radiology results as stated below per my review and radiologist interpretation: CT OF THE ABDOMEN AND PELVIS WITH CONTRAST CLINICAL HISTORY: Abdominal pain. Diarrhea and vomiting. COMPARISON STUDY: CT of the abdomen and pelvis April 17, 2017 and right upper quadrant ultrasound August 27, 2015. TECHNIQUE: Following IV administration of 94 mL of Optiray-320, axial images of the abdomen and pelvis were obtained from the lung bases to the proximal femurs. Images were reviewed in the axial, sagittal, and coronal planes. IV contrast was administered without complication. A dose lowering technique was utilized adhering to the principles of ALARA. CT DOSE: 346.26 mGy.cm FINDINGS: Lung bases are clear. Note is made of moderate to marked biliary ductal dilatation which has developed since CT of April 17, 2017. This is due to multiple common bile duct calculi which measure up to 1.7 cm. The gallbladder is moderately distended. There is mass effect upon the abdominal wall by the gallbladder which suggests acute cholecystitis. There is pericholecystic infiltration and trace perihepatic ascites. The spleen, adrenal glands, right kidney and pancreas are unremarkable. There is no pancreatic ductal dilatation. A cyst within the upper pole of the left kidney measures 1.9 cm. The patient is status post gastric bypass. There is no bowel obstruction. Images of the pelvis are degraded by streak artifact from right hip arthroplasty. There is no lymphadenopathy. No pneumatosis, free air or portal venous gas is present. There are no suspicious osseous lesions. IMPRESSION: 1. Moderate to marked intra and extrahepatic biliary ductal dilatation due to several large calculi within the mid to distal common bile duct that measure up to 1.7 cm. 2. Moderate gallbladder distention with mild pericholecystic infiltration and mass effect upon the abdominal wall by the gallbladder suggestive of gallbladder fundus sign. The findings suggest acute cholecystitis. 3. Status post gastric bypass. No bowel obstruction. Electronically signed by: Ian Elder M.D. 12/18/2017 4:05 PM Dictated Date/Time: 12/18/2017 3:51 PM ABDOMINAL ULTRASOUND, RIGHT UPPER QUADRANT HISTORY: Right upper quadrant pain. Hyperbilirubinemia. COMPARISON: CT of the abdomen and pelvis performed earlier today and right upper quadrant ultrasound August 27, 2015. FINDINGS: There is moderate intra and extrahepatic biliary ductal dilatation. The common bile duct measures 1.4 cm in caliber. The common bile calculi shown on CT performed earlier today are not well visualized on this exam. No hepatic lesions are identified. The gallbladder is moderately distended. There is sludge within the gallbladder. Moderate gallbladder wall thickening is noted. There is mild pericholecystic fluid. There is no right hydronephrosis. There is mild dilatation of the main pancreatic duct. No peripancreatic fluid collection is present. IMPRESSION: 1. Moderate intra and extrahepatic biliary ductal dilatation. Multiple common bile calculi shown on CT performed earlier today are obscured on this exam. These likely account for the biliary ductal dilatation. 2. Sludge within the gallbladder. Moderate gallbladder distention, gallbladder wall thickening and trace pericholecystic fluid. These findings raise the possibility of acute cholecystitis. 3. Mild dilatation of the main pancreatic duct. Electronically signed by: Ian Elder M.D. 12/18/2017 4:20 PM Dictated Date/Time: 12/18/2017 4:16 PM Laboratory Results 12/18/17 13:04 Red Blood Count 3.74, Mean Corpuscular Volume 92.5, Mean Corpuscular Hemoglobin 31.0, Mean Corpuscular Hemoglobin Concent 33.5, Mean Platelet Volume 9.0, Neutrophils (%) (Auto) 85.2, Lymphocytes (%) (Auto) 9.3, Monocytes (%) (Auto) 4.9, Eosinophils (%) (Auto) 0.4, Basophils (%) (Auto) 0.1, Neutrophils # (Auto) 6.65, Lymphocytes # (Auto) 0.73, Monocytes # (Auto) 0.38, Eosinophils # (Auto) 0.03, Basophils # (Auto) 0.01 12/18/17 13:04 Test 12/18/17 13:04 12/18/17 13:09 12/18/17 13:10 12/18/17 13:20 White Blood Count 7.81 K/uL (4.8-10.8) Red Blood Count 3.74 M/uL (4.7-6.1) Hemoglobin 11.6 g/dL (14.0-18.0) Hematocrit 34.6 % (42-52) Mean Corpuscular Volume 92.5 fL (80-100) Mean Corpuscular Hemoglobin 31.0 pg (25-34) Mean Corpuscular Hemoglobin Concent 33.5 g/dl (32-36) Platelet Count 281 K/uL (130-400) Mean Platelet Volume 9.0 fL (7.4-10.4) Neutrophils (%) (Auto) 85.2 % Lymphocytes (%) (Auto) 9.3 % Monocytes (%) (Auto) 4.9 % Eosinophils (%) (Auto) 0.4 % Basophils (%) (Auto) 0.1 % Neutrophils # (Auto) 6.65 K/uL (1.4-6.5) Lymphocytes # (Auto) 0.73 K/uL (1.2-3.4) Monocytes # (Auto) 0.38 K/uL (0.11-0.59) Eosinophils # (Auto) 0.03 K/uL (0-0.5) Basophils # (Auto) 0.01 K/uL (0-0.2) RDW Standard Deviation 49.6 fL (36.4-46.3) RDW Coefficient of Variation 14.6 % (11.5-14.5) Immature Granulocyte % (Auto) 0.1 % Immature Granulocyte # (Auto) 0.01 K/uL (0.00-0.02) Anion Gap 7.0 mmol/L (3-11) Est Creatinine Clear Calc Drug Dose 118.1 ml/min Estimated GFR () 118.4 Estimated GFR (Non- 102.2 BUN/Creatinine Ratio 14.3 (10-20) Calcium Level 8.4 mg/dl (8.5-10.1) Magnesium Level 2.1 mg/dl (1.8-2.4) Total Bilirubin 1.4 mg/dl (0.2-1) Direct Bilirubin 1.1 mg/dl (0-0.2) Aspartate Amino Transf (AST/SGOT) 196 U/L (15-37) Alanine Aminotransferase (ALT/SGPT) 88 U/L (12-78) Alkaline Phosphatase 928 U/L (45-117) Troponin I < 0.015 ng/ml (0-0.045) Total Protein 6.8 gm/dl (6.4-8.2) Albumin 2.6 gm/dl (3.4-5.0) Lipase 134 U/L (73-393) Bedside Lactic Acid Venous 0.86 mmol/L (0.90-1.70) Salicylates Level 4.1 mg/dl (2.8-20) Acetaminophen Level < 2 ug/ml (10-30) Ethyl Alcohol mg/dL < 3.0 mg/dl (0-3) Laboratory results reviewed by me Medications Administered Medications (Trade) Dose Ordered Sig/Lm Route Start Time Stop Time Status Last Admin Dose Admin Clonidine HCl (Catapres Tab) 0.2 mg NOW ONCE PO 12/18/17 13:00 12/18/17 13:01 DC 12/18/17 13:00 0.2 MG Morphine Sulfate (MoRPHine SULFATE INJ) 4 mg NOW STAT IV 12/18/17 12:47 12/18/17 12:48 DC 12/18/17 13:00 4 MG Morphine Sulfate (MoRPHine SULFATE INJ) 4 mg NOW STAT IV 12/18/17 16:23 12/18/17 16:25 DC 12/18/17 16:47 4 MG Ondansetron HCl (Zofran Inj) 4 mg NOW STAT IV 12/18/17 16:23 12/18/17 16:25 DC 12/18/17 16:23 4 MG Sodium Chloride 1,000 ml @ 110 mls/hr Q9H6M STAT IV 12/18/17 16:23 12/19/17 01:28 12/18/17 16:47 110 MLS/HR Piperacillin Sod/ Tazobactam Sod (Zosyn Iv) 4.5 gm NOW STAT IV 12/18/17 18:32 12/18/17 18:33 DC 12/18/17 19:35 4.5 GM ECG Per My Interpretation Indication: abdominal pain Rate (beats per minute): 60 Rhythm: normal sinus Findings: other (Normal intervals, LAD, NO STS changes No TWI) ED Course 1235: The patient was evaluated in room C4. A complete history and physical exam was performed. 1247: Ordered Morphine Sulfate 4 mg IV. 1300: Ordered Clonidine HCl 0.2 mg PO. 1412: I checked on the patient at this time. He was sleeping soundly. 1427: The patient is refusing to drink oral contrast at this time. 1426: I discussed the case with [employer] PA-C. She will evaluate the patient for further treatment. 1432: I discussed the results of the case with the patient at this time. He is agreeable to an inpatient stay. 1623: Ordered Sodium Chloride 1000 mL @ 110 mL/hr IV, Zofran 4 mg IV, Morphine Sulfate 4 mg IV. 1638: I discussed the case with Dr. Nelosn Scruggs [facility]. He states that the patient must be transferred. 1641: I updated the patient, he is going to decide where he would like to be transferred. 1651: I discussed the case with Ruching Machine Operator, he would like to go to [facility]. 1703: I discussed the case with Dr. Lima - Hospitalist [facility]. He will accept the patient for transferred to [place]. 1720: I have been informed at this time that there is currently at 48-hour bedlock at [facility]. The patient cannot be transferred there. I will contact [facility] for a possible placement. The patient is in agreement. 1736: I discussed the case with Dr. Kath Scruggs [facility]. He would like us to ask if the [facility] GI Surgeons will do the procedure here. If not, they will accept the patient for transfer to [place]. 1824: I discussed the [facility] Hospitalist and Dr. [facility] Bearing Grinder. They will accept the patient for transfer. Medical Decision The patient is a 57 year old black male with a history or Alcohol withdrawal delirium, Benign hypertension, Bypass gastroenterostomy, Chronic back pain, Delirium tremens, Melena, Opioid withdrawal, Osteoarthritis and PTSD (post- traumatic stress disorder) who presents to the Emergency Room with complaints of constant left lower quadrant abdominal pain. Differential diagnosis: Etiologies such as appendicitis, diverticulitis, PUD, biliary pathology, UTI, pancreatitis, obstruction, mesenteric ischemia, aortic pathology, infections, inflammatory bowel disease, renal colic, as well as others were entertained. Patient was seen and evaluated at the bedside. The patient does have a prior history of a Khloe-en-Y gastric bypass. Patient also does state that he is recently used heroin most recently approximate 2 days ago. Patient feels as though he is dying. Patient does have some mild midepigastric and midabdominal discomfort. Patient has a nonsurgical abdomen. Patient does have a well- healing scar in his right lower extremity. Patient initially stated that he was unable to move or feel in the leg. However the patient does have sensation and is able to plantar and dorsiflex the ankle. Patient did have blood work completed, lactate, EKG, troponin, CT of the abdomen pelvis with IV and oral contrast. Patient was also given pain medications and was also given clonidine given his heroin use. Patient did have a normal white blood cell count. Patient does have some mild anemia. Kidney function normal. Lactate normal. Patient does have elevations in T bili, AST, ALT, and alk phos. Given this the right upper quadrant ultrasound was ordered. Patient did have a CT of the abdomen pelvis that was also completed. The patient did refuse the p.o. contrast even though he did have a prior history of a gastric bypass. Patient CT the abdomen pelvis did show that the patient likely had a distended gallbladder with pericholecystic infiltration concerning for acute cholecystitis. Patient also did have several stones within the CBD with dilatation up to 1.7 cm. The patient was made n.p.o., IV fluids were started, and a surgical consult and GI consult were initiated. General surgery and was concerned about the need for an ERCP. I did speak with GI and they stated that they likely would need to have an interventional radiologist be of benefit to help placing the stent given the patient's gastric bypass history. The patient requested transfer to [facility]. I did speak with the [facility] hospitalist who agreed to accept the patient. Upon report from the transfer center by the litigation secretary there was concern that there would be a 48 hour bed hold. Given this concern a transfer was initiated [facility]. I discussed case with the on-call bioprocess engineer as well as hospitalist. They would agree to take the patient; however, they would prefer that we called our [facility] bioprocess engineer here to see if they would be willing to attempt an ERCP. The gastro neurologist was paged several times but without any return call. Given this I did rediscuss the patient with the new on-call hospitalist as well as a bioprocess engineer. Decided to start him on Zosyn. Patient was given additional pain medications and antiemetics. Patient was still n.p.o. and on maintenance fluid. The patient was transferred to [facility]. Medication Reconcilliation Current Medication List: was personally reviewed by me Blood Pressure Screening Patient's blood pressure: Elevated blood pressure Referred to Hospitalist Consults Time Called: 1420 Consulting Physician: [employer] PA-C Returned Call: 1426 I discussed the case with [employer] PA-C. She will evaluate the patient for further treatment. Additional Consults: Time Called: 1630 Consulted Physician: Dr. Nelson Scruggs- [facility] GI Surgery Returned Call: 1638 Additional Comments: I discussed the case with Dr. Nelson Scruggs- [facility]. He states that the patient must be transferred. Time Called: 1548 Consulted Phys[facility] Returned Call: 1654 Additional Comments: I discussed the case with [facility]. He will accept the patient for transferred to [place]. Impression Primary Impression: Acute cholecystitis Additional Impressions: Choledocholithiasis Encounter for smoking cessation counseling Heroin abuse Anemia Hypokalemia Critical Care I have personally spent greater than 75 minutes of critical care time in the direct management of this patient. This includes bedside care, interpretation of diagnostic studies, and testing, discussion with consultants, patient, and family members, and other required patient management activities. This 75 minutes is in excess of all separately billable procedures. Scribe Attestation The scribe's documentation has been prepared under my direction and personally reviewed by me in its entirety. I confirm that the note above accurately reflects all work, treatment, procedures, and medical decision making performed by me. Departure Information Dispostion Transfer Acute [facility] ([facility]) Prescriptions No Active Prescriptions or Reported Meds Referrals No Doctor, Assigned (PCP) Patient Instructions My [facility] Problem Qualifiers Additional Impressions: Anemia Anemia type: unspecified type Qualified Codes: D64.9 - Anemia, unspecified
[2017-12-18 13:21] LABS: BASO % 0.1 %; BASO ABS # 0.01 K/uL (0-0.2); EOS % 0.4 %; EOS ABS # 0.03 K/uL (0-0.5); HEMATOCRIT 34.6 % (42-52); HEMOGLOBIN 11.6 g/dL (14.0-18.0); IG# 0.01 K/uL (0.00-0.02); LYMPH % 9.3 %; LYMPH ABS # 0.73 K/uL (1.2-3.4); MEAN CELL VOLUME 92.5 fL (80-100); MEAN CORPUSCULAR HGB CONC 33.5 g/dl (32-36); MONO % 4.9 %; MONO ABS # 0.38 K/uL (0.11-0.59); NEUT % 85.2 %; NEUT ABS # 6.65 K/uL (1.4-6.5); PLATELET COUNT 281 K/uL (130-400); RED CELL DISTRIBUTION WIDTH CV 14.6 % (11.5-14.5); RED CELL DISTRIBUTION WIDTH SD 49.6 fL (36.4-46.3); WHITE BLOOD COUNT 7.81 K/uL (4.8-10.8)
[2017-12-18 13:43] LABS: ALBUMIN 2.6 gm/dl (3.4-5.0); ALT/SGPT 88 U/L (12-78); AST/SGOT 196 U/L (15-37); BLOOD UREA NITROGEN 11 mg/dl (7-18); CALCIUM 8.4 mg/dl (8.5-10.1); CARBON DIOXIDE 25 mmol/L (21-32); CREATININE 0.77 mg/dl (0.60-1.40); GLUCOSE 108 mg/dl (70-99); LIPASE 134 U/L (73-393); POTASSIUM 3.4 mmol/L (3.5-5.1); SODIUM 140 mmol/L (136-145)
[2017-12-18 13:57] LABS: ALKALINE PHOSPHATASE 928 U/L (45-117); TOTAL PROTEIN 6.8 gm/dl (6.4-8.2)
--- NOTE | 2017-12-18 16:06 | DIAGNOSTIC IMAGING REPORT ---
CT OF THE ABDOMEN AND PELVIS WITH CONTRAST CLINICAL HISTORY: Abdominal pain. Diarrhea and vomiting. COMPARISON STUDY: CT of the abdomen and pelvis April 17, 2017 and right upper quadrant ultrasound August 27, 2015. TECHNIQUE: Following IV administration of 94 mL of Optiray-320, axial images of the abdomen and pelvis were obtained from the lung bases to the proximal femurs. Images were reviewed in the axial, sagittal, and coronal planes. IV contrast was administered without complication. A dose lowering technique was utilized adhering to the principles of ALARA. CT DOSE: 346.26 mGy.cm FINDINGS: Lung bases are clear. Note is made of moderate to marked biliary ductal dilatation which has developed since CT of April 17, 2017. This is due to multiple common bile duct calculi which measure up to 1.7 cm. The gallbladder is moderately distended. There is mass effect upon the abdominal wall by the gallbladder which suggests acute cholecystitis. There is pericholecystic infiltration and trace perihepatic ascites. The spleen, adrenal glands, right kidney and pancreas are unremarkable. There is no pancreatic ductal dilatation. A cyst within the upper pole of the left kidney measures 1.9 cm. The patient is status post gastric bypass. There is no bowel obstruction. Images of the pelvis are degraded by streak artifact from right hip arthroplasty. There is no lymphadenopathy. No pneumatosis, free air or portal venous gas is present. There are no suspicious osseous lesions. IMPRESSION: 1. Moderate to marked intra and extrahepatic biliary ductal dilatation due to several large calculi within the mid to distal common bile duct that measure up to 1.7 cm. 2. Moderate gallbladder distention with mild pericholecystic infiltration and mass effect upon the abdominal wall by the gallbladder suggestive of gallbladder fundus sign. The findings suggest acute cholecystitis. 3. Status post gastric bypass. No bowel obstruction. Electronically signed by: Ian Elder M.D. 12/18/2017 4:05 PM Dictated Date/Time: 12/18/2017 3:51 PM
--- NOTE | 2017-12-18 16:21 | DIAGNOSTIC IMAGING REPORT ---
ABDOMINAL ULTRASOUND, RIGHT UPPER QUADRANT HISTORY: Right upper quadrant pain. Hyperbilirubinemia. COMPARISON: CT of the abdomen and pelvis performed earlier today and right upper quadrant ultrasound August 27, 2015. FINDINGS: There is moderate intra and extrahepatic biliary ductal dilatation. The common bile duct measures 1.4 cm in caliber. The common bile calculi shown on CT performed earlier today are not well visualized on this exam. No hepatic lesions are identified. The gallbladder is moderately distended. There is sludge within the gallbladder. Moderate gallbladder wall thickening is noted. There is mild pericholecystic fluid. There is no right hydronephrosis. There is mild dilatation of the main pancreatic duct. No peripancreatic fluid collection is present. IMPRESSION: 1. Moderate intra and extrahepatic biliary ductal dilatation. Multiple common bile calculi shown on CT performed earlier today are obscured on this exam. These likely account for the biliary ductal dilatation. 2. Sludge within the gallbladder. Moderate gallbladder distention, gallbladder wall thickening and trace pericholecystic fluid. These findings raise the possibility of acute cholecystitis. 3. Mild dilatation of the main pancreatic duct. Electronically signed by: Ian Elder M.D. 12/18/2017 4:20 PM Dictated Date/Time: 12/18/2017 4:16 PM
[2017-12-18] MEDS ORDERED: ONDANSETRON INJ 2 MG/ML 2 ML VIAL IV STA (16:23)
[2017-12-18] MEDS ORDERED: SODIUM CHLORIDE 0.9% 1000ML 1,000 ML IV STA (16:23)
[2017-12-18] MEDS ORDERED: PIPERACILLIN/TAZOBACTAM 4.5 GM/100ML D5W IV STA (18:32)
[2017-12-18] MEDS ORDERED: ONDANSETRON INJ 2 MG/ML 2 ML VIAL IV PRN (19:45)
[2017-12-18] MEDS ORDERED: MoRPHine SULFATE 10 MG/ML CARP/VIAL ONE (22:13)
[2017-12-18 22:42] VITALS: BP 144/107; PULSE 57; O2SAT 98
== END 2017-12-18 22:43 | disposition short-term general hospital (02) ==
LOC: C.EDB 12:15 → C.EDC 22:43
DX: K80.42 Calculus of bile duct with acute cholecystitis without obstruction (principal); F11.10 Opioid abuse, uncomplicated; D64.9 Anemia, unspecified; E87.6 Hypokalemia; Z71.6 Tobacco abuse counseling; I10 Essential (primary) hypertension; M19.90 Unspecified osteoarthritis, unspecified site; F43.10 Post-traumatic stress disorder, unspecified; Z98.84 Bariatric surgery status; F10.231 Alcohol dependence with withdrawal delirium; Z96.649 Presence of unspecified artificial hip joint; Z96.659 Presence of unspecified artificial knee joint; Z83.3 Family history of diabetes mellitus; Z82.49 Family history of ischemic heart disease and other diseases of the circulatory system; F17.210 Nicotine dependence, cigarettes, uncomplicated

== ENCOUNTER 2017-12-29 22:53 | Emergency (ER) | payer OTHER ==
[~2017-12-29] VITALS: Ht 182.9 cm; Wt 91.0 kg
[2017-12-29 22:56] VITALS: Ht 182.9 cm; Wt 91.0 kg
[2017-12-29] MEDS ORDERED: MoRPHine SULFATE 10 MG/ML CARP/VIAL IV STA (23:30)
[2017-12-29] MEDS ORDERED: DiphenhydrAMINE HCL 50 MG/ML VIAL IV STA (23:30)
[2017-12-29] MEDS ORDERED: OPTIRAY 320 IV PRN (23:30)
[2017-12-29] MEDS ORDERED: SODIUM CHLORIDE 0.9% 1000ML 1,000 ML IV STA (23:30)
[2017-12-29] MEDS ORDERED: ONDANSETRON 8 MG/54 ML D5W IV STA (23:30)
[2017-12-29] MEDS ORDERED: MoRPHine SULFATE 2 MG/ML CARP ONE (23:35)
[2017-12-29] MEDS ORDERED: MoRPHine SULFATE 4 MG/ML 1 ML CARP\\VIAL ONE (23:35)
[2017-12-29] MEDS ORDERED: ONDANSETRON INJ 2 MG/ML 2 ML VIAL ONE (23:36)
--- NOTE | 2017-12-29 23:39 | EMERGENCY ROOM VISIT NOTE ---
History Report prepared by [place]: Shireen Cates Under the Supervision of: Dr. Lauren Trimble D.O. First contact with patient: 23:01 Chief Complaint: ABDOMINAL PAIN Stated Complaint: PAIN IN STOMACH History of Present Illness The patient is a 57 year old male who presents to the Emergency Room with complaints of constant abdominal pain for two days. He currently rates his pain a 10/10 in severity. Patient states he has had constant 8/10 pain since his discharge from [facility]. He recently had surgery at [facility] due to cholecystitis. He notes that there were gallstones blocking his gallbladder and since he had a gastric bypass surgery in the past, the surgeons needed to drain the gallbladder first before they could possible remove it. He states they installed a biliary drain to his right abdomen December 20, 2017 and he was discharged with Methadone December 23, 2017. He was told there would be a home health aide to help him with the drain, though he reports that no one ever showed. He notes that he had been draining 400 ml of fluid about eight times a day, though he has only drained the bag once today. He notes that it stopped draining today. Patient states he ran out of his methadone after 3 days and had nothing else at home to take. He states that he has been mostly lying in his bed for two days due to the pain because movement hurts. He denies any fevers, though notes chills. He denies any vomiting or diarrhea. His last bowel movement was three hours ago, though it was a small stool. He states that it hurts his abdomen too much to pass a stool. He denies any rectal pain. He notes that taking a deep breath and movement worsens the pain. He states that he cannot cough due to the pain. He is expected to have a second surgery December 31, 2017. Upon obtaining initial history, I asked corrections caseworker to try and obtain records of recent visit including discharge summary from [facility]. Source of History: patient Onset: two days Position: abdomen Symptom Intensity: 10/10 Timing: constant Modifying Factors (Worsening): breathing (deep), movement Associated Symptoms: + chills, No fevers, No vomiting, No diarrhea Note: He notes constipation. He denies any rectal pain. Review of Systems See HPI for pertinent positives & negatives. A total of 10 systems reviewed and were otherwise negative. 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 (22) Status post herniorrhaphy (23) Vomiting Surgical Problems: (1) History of gastric bypass (2) History of hip replacement (3) History of knee replacement Family History Diabetes mellitus Heart disease Social History Smoking Status: Current Every Day Smoker Alcohol Use: heavy Drug Use: heroin, other Marital Status: Housing Status: lives with family Occupation Status: employed Current/Historical Medications No Active Prescriptions or Reported Meds Allergies Coded Allergies: No Known Allergies (Verified , 12/29/17) Physical Exam Vital Signs Date Time Temp Pulse Resp B/P (MAP) Pulse Ox O2 Delivery O2 Flow Rate FiO2 12/30/17 06:00 68 18 105/54 100 Room Air 12/30/17 05:06 72 17 100 12/30/17 05:01 120/67 12/30/17 04:36 72 16 100 12/30/17 04:31 135/81 12/30/17 04:06 64 16 100 12/30/17 04:02 66 12/30/17 04:01 128/88 12/30/17 03:41 79 15 92 12/30/17 03:31 125/77 12/30/17 03:16 36.9 12/30/17 03:11 53 100 12/30/17 03:06 54 14 100 12/30/17 03:01 112/75 12/30/17 02:36 65 13 99 12/30/17 02:31 112/69 12/30/17 01:36 55 13 100 12/30/17 01:31 125/69 12/30/17 01:28 76 22 100 12/30/17 01:01 116/73 12/30/17 00:58 59 15 100 12/30/17 00:53 60 17 100 12/30/17 00:51 124/73 12/30/17 00:23 55 17 100 12/30/17 00:01 135/81 12/29/17 23:58 56 12/29/17 23:53 58 15 99 12/29/17 23:51 56 19 145/86 99 Room Air 12/29/17 23:50 97 Room Air 12/29/17 23:48 145/86 12/29/17 22:56 36.9 67 18 157/102 98 Room Air Physical Exam GENERAL: alert, well appearing, well nourished, no distress, non-toxic EYE EXAM: normal conjunctiva, PERRL and EOM's grossly intact OROPHARYNX: no exudate, no erythema, lips, buccal mucosa, and tongue normal and mucous membranes are moist NECK: supple, no nuchal rigidity, no adenopathy, non-tender LUNGS: Clear but decreased to auscultation. Normal chest wall mechanics, no W/R/ R HEART: no murmurs, S1 normal and S2 normal ABDOMEN: abdomen soft, tenderness noted around biliary drain, normo-active bowel sounds, no masses, no rebound or guarding. RUQ biliary drain noted, no surrounding erythema, no foul odor, no bleeding, scant drainage noted, and sutures intact. Excess skin noted consistent with prior gastric bypass and subsequent weight loss. BACK: Back is symmetrical on inspection and there is no deformity, no midline tenderness, no CVA tenderness. SKIN: no rashes and no bruising UPPER EXTREMITIES: upper extremities are grossly normal. Full range of motion, normal pulses. LOWER EXTREMITIES: No pitting edema. Full range of motion, normal pulses. NEURO EXAM: Normal sensorium, cranial nerves II-XII grossly intact, normal speech, no gross weakness of arms, no gross weakness of legs. Medical Decision & Procedures ER Provider Diagnostic Interpretation: X-ray: I interpreted the following studies. Chest: A single view study of the chest was reviewed and was negative for cardiomegaly, focal infiltrate, effusion , wide mediastinum, or pneumothorax. Radiology results have been interpreted by the radiologist and reviewed by me. CT ABDOMEN & PELVIS With Contrast: Percutaneous cholecystostomy intra-and extrahepatic biliary ductal ectasia. Previous gastric bypass Scattered air-fluid levels are seen and proximal to mid small bowel with moderate distension. No focal transition point identified to suggest obstruction at this time. Illeus/gastroenteritis of consideration. Appendix not discreetly identified. No free air or fluid. Incidental left renal cyst Anasarca Comparison study dated 04/17/2017 Radiologist: Jaime Corrales MD Study ready at 02:20 and initial results transmitted at 02:50 Laboratory Results 12/30/17 00:02 Red Blood Count 3.65, Mean Corpuscular Volume 92.1, Mean Corpuscular Hemoglobin 29.9, Mean Corpuscular Hemoglobin Concent 32.4, Mean Platelet Volume 8.7, Neutrophils (%) (Auto) 70.9, Lymphocytes (%) (Auto) 23.5, Monocytes (%) (Auto) 4.2, Eosinophils (%) (Auto) 1.0, Basophils (%) (Auto) 0.4, Neutrophils # (Auto) 3.38, Lymphocytes # (Auto) 1.12, Monocytes # (Auto) 0.20, Eosinophils # (Auto) 0.05, Basophils # (Auto) 0.02 12/30/17 00:02 Test 12/30/17 00:02 12/30/17 00:14 White Blood Count 4.77 K/uL (4.8-10.8) Red Blood Count 3.65 M/uL (4.7-6.1) Hemoglobin 10.9 g/dL (14.0-18.0) Hematocrit 33.6 % (42-52) Mean Corpuscular Volume 92.1 fL (80-100) Mean Corpuscular Hemoglobin 29.9 pg (25-34) Mean Corpuscular Hemoglobin Concent 32.4 g/dl (32-36) Platelet Count 335 K/uL (130-400) Mean Platelet Volume 8.7 fL (7.4-10.4) Neutrophils (%) (Auto) 70.9 % Lymphocytes (%) (Auto) 23.5 % Monocytes (%) (Auto) 4.2 % Eosinophils (%) (Auto) 1.0 % Basophils (%) (Auto) 0.4 % Neutrophils # (Auto) 3.38 K/uL (1.4-6.5) Lymphocytes # (Auto) 1.12 K/uL (1.2-3.4) Monocytes # (Auto) 0.20 K/uL (0.11-0.59) Eosinophils # (Auto) 0.05 K/uL (0-0.5) Basophils # (Auto) 0.02 K/uL (0-0.2) RDW Standard Deviation 49.0 fL (36.4-46.3) RDW Coefficient of Variation 14.4 % (11.5-14.5) Immature Granulocyte % (Auto) 0.0 % Immature Granulocyte # (Auto) 0.00 K/uL (0.00-0.02) Prothrombin Time 10.4 SECONDS (9.0-12.0) Prothromb Time International Ratio 1.0 (0.9-1.1) Anion Gap 7.0 mmol/L (3-11) Est Creatinine Clear Calc Drug Dose 141.0 ml/min Estimated GFR () 126.9 Estimated GFR (Non- 109.5 BUN/Creatinine Ratio 11.9 (10-20) Calcium Level 7.8 mg/dl (8.5-10.1) Total Bilirubin 0.3 mg/dl (0.2-1) Aspartate Amino Transf (AST/SGOT) 47 U/L (15-37) Alanine Aminotransferase (ALT/SGPT) 34 U/L (12-78) Alkaline Phosphatase 977 U/L (45-117) Troponin I < 0.015 ng/ml (0-0.045) Total Protein 6.0 gm/dl (6.4-8.2) Albumin 2.0 gm/dl (3.4-5.0) Globulin 4.0 gm/dl (2.5-4.0) Albumin/Globulin Ratio 0.5 (0.9-2) Lipase 208 U/L (73-393) Bedside Lactic Acid Venous 0.67 mmol/L (0.90-1.70) Laboratory results per my review. Medications Administered Medications (Trade) Dose Ordered Sig/Lm Route Start Time Stop Time Status Last Admin Dose Admin Diphenhydramine HCl (Benadryl Inj) 25 mg NOW STAT IV 12/29/17 23:30 12/29/17 23:32 DC 12/29/17 23:47 25 MG Sodium Chloride 1,000 ml @ 250 mls/hr Q4H STAT IV 12/29/17 23:30 12/30/17 03:29 DC 12/29/17 23:30 250 MLS/HR Morphine Sulfate (MoRPHine SULFATE INJ) 2 mg STK-MED ONCE .ROUTE 12/29/17 23:35 12/29/17 23:36 DC 12/29/17 23:46 2 MG Morphine Sulfate (MoRPHine SULFATE INJ) 4 mg STK-MED ONCE .ROUTE 12/29/17 23:35 12/29/17 23:36 DC 12/29/17 23:46 4 MG Ondansetron HCl (Zofran Inj) 8 mg STK-MED ONCE .ROUTE 12/29/17 23:36 12/29/17 23:37 DC 12/29/17 23:46 8 MG Morphine Sulfate (MoRPHine SULFATE INJ) 6 mg NOW STAT IV 12/30/17 00:04 12/30/17 00:05 DC 12/30/17 00:09 6 MG Hydromorphone HCl (Dilaudid Inj) 0.5 mg NOW STAT IV 12/30/17 01:36 12/30/17 01:37 DC 12/30/17 02:21 0.5 MG Metoclopramide HCl (Reglan Inj) 10 mg NOW STAT IV. 12/30/17 01:36 12/30/17 01:37 DC 12/30/17 01:42 10 MG Diphenhydramine HCl (Benadryl Inj) 25 mg NOW STAT IV 12/30/17 01:36 12/30/17 01:37 DC 12/30/17 02:20 25 MG Potassium Chloride (Klor-Con M10) 40 meq NOW STAT PO 12/30/17 03:18 12/30/17 03:21 DC 12/30/17 03:33 40 MEQ Oxycodone/ Acetaminophen (Percocet 5-325mg Tab) 1 tab NOW STAT PO 12/30/17 04:01 12/30/17 04:03 DC 12/30/17 04:13 1 TAB Hydromorphone HCl (Dilaudid Inj) 0.5 mg NOW STAT IV 12/30/17 05:32 12/30/17 05:33 DC 12/30/17 05:38 0.5 MG Oxycodone/ Acetaminophen (Percocet 5/ 325MG Home Pack) 1 homepack UD ONCE PO 12/30/17 05:45 12/30/17 05:46 DC 12/30/17 05:38 1 HOMEPACK ECG Per My Interpretation Indication: abdominal pain Rate (beats per minute): 52 Rhythm: sinus bradycardia Findings: Q waves (V2), no acute ischemic change, other (normal axis, normal intervals) ED Course 2307: The patient was evaluated in room B2. A complete history and physical exam was performed. 2330: Ordered Sodium Chloride 1,000 ml @ 250 mls/hr IV, Zofran 8 mg IV, Morphine Sulfate 6 mg IV, and Benadryl 25 mg IV 2336: Ordered Zofran 8 mg IV 0004: Ordered Morphine Sulfate 6 mg IV 0134: I spoke with GERALDINE Wilkins. The patient states that he is nauseous. 0136: Ordered Benadryl 25 mg IV, Reglan 10 mg IV, and Dilaudid 0.5 mg IV 0316: I spoke with Dr. Corrales, radiologist. We discussed the patient's imaging. 0318: Ordered Potassium-Chloride 40 meq PO 0401: Ordered Oxycodone/Acetaminophen 1 tab PO 0424: I reassessed the patient at this time. He feels better, though still has pain. He was able to eat and he wishes to go home. I discussed the results and treatment plan with the patient. I answered all pertaining questions that he had. He expressed understanding and verbalized agreement. No records were ever faxed back to us from [facility]. Discussed with patient risks given current condition, symptoms to watch and return for, he verbalized understanding. The patient will be discharged home. 0532: Ordered Dilaudid 0.5 mg IV 0545: Ordered Oxycodone/Acetaminophen 1 homepack PO Medical Decision Prior records/ancillary studies reviewed. Triage Nursing notes reviewed. The patient's history was concerning for abdominal pain. Differential diagnosis: Etiologies such as appendicitis, diverticulitis, PUD, biliary pathology, UTI, pancreatitis, obstruction, mesenteric ischemia, aortic pathology, infections, inflammatory bowel disease, renal colic, as well as others were entertained. Patient with significant prior history of drug abuse and alcohol abuse. Patient states he has been clean for 1 month. Patient here mostly concerned with pain. Patient with acute cholecystitis and recent admission to [facility] and percutaneous drain placed. Patient scheduled for surgery tomorrow for cholecystectomy and additional evaluation of the pancreas due to choledocholithiasis. Patient concerned mostly about dislodgment of his drainage tube given decreased in your drainage today. I find it difficult to believe that the patient was draining as much as he stated and emptying it as frequently as he stated over the last week. Patient with no evidence of bacteremia/sepsis, pancreatitis, ascending cholangitis, pneumonia. Reassuring CAT scan which I did discuss with the nighttime reading radiologist. No evidence of dislodgment or malfunction of the tube, no evidence of fluid collection or abscess. Tube appears in normal position. No evidence of bowel obstruction or other acute pathology. Patient's labs reassuring with exception of an elevated alkaline phosphatase. This was noted to be elevated on initial presentation last week. Without being able to obtain records from [facility] it is unclear if this ever change during his treatment on there. No other elevation of his bilirubin or significant elevation of his transaminases. Patient afebrile here throughout, observed for multiple hours as a precaution. Patient improved and insistent on eating and drinking. Patient had no worsening pain or discomfort no vomiting after eating and drinking. Discussed with patient at length symptoms to watch and return for, keep the appointment at [facility] tomorrow, close monitoring of biliary drainage, monitoring for fevers , p.o. intake, adequate hydration, treatment of constipation, importance of abstaining from drugs and alcohol, he verbalized understanding and was agreeable with plan, asking to go home as he wants to go to [facility] tomorrow. I feel patient likely here due to lack of pain medication at home. Patient also under social stressors is only recent reconciliation with his after becoming clean and sober. Patient not currently employed. Medication Reconcilliation Current Medication List: was personally reviewed by me Blood Pressure Screening Patient's blood pressure: Elevated blood pressure Blood pressure disposition: Elevated BP felt to be situational Consults Time Called: 315 Consulting Physician: Dr. Corrales, radiologist I spoke with Dr. Corrales, radiologist. We discussed the patient's imaging. Impression Primary Impression: Abdominal pain Additional Impression: Hypokalemia Scribe Attestation The scribe's documentation has been prepared under my direction and personally reviewed by me in its entirety. I confirm that the note above accurately reflects all work, treatment, procedures, and medical decision making performed by me. Departure Information Dispostion Home / Self-Care Prescriptions No Active Prescriptions or Reported Meds Referrals No Doctor, Assigned (PCP) Forms Call Back Authorization, HOME CARE DOCUMENTATION FORM, IMPORTANT VISIT INFORMATION Patient Instructions My [facility] Additional Instructions Please go to [facility] tomorrow morning as previously scheduled for additional evaluation and treatment. You may use the pain medication as prescribed. Please eat and drink as were previously instructed upon your discharge from [facility]. If you develop a fever, vomiting, worsening pain, or you have any other new concerns, please return the emergency room. Please continue to monitor the drainage from your gallbladder tube. If you notice blood, or it does not seem to be draining, please return the emergency room. Problem Qualifiers Primary Impression: Abdominal pain Abdominal location: right upper quadrant Qualified Codes: R10.11 - Right upper quadrant pain
[2017-12-29 23:50] VITALS: O2SAT 97
[2017-12-30] MEDS ORDERED: MoRPHine SULFATE 10 MG/ML CARP/VIAL IV STA (00:04)
[2017-12-30 00:30] LABS: BASO % 0.4 %; BASO ABS # 0.02 K/uL (0-0.2); EOS ABS # 0.05 K/uL (0-0.5); HEMATOCRIT 33.6 % (42-52); HEMOGLOBIN 10.9 g/dL (14.0-18.0); LYMPH % 23.5 %; LYMPH ABS # 1.12 K/uL (1.2-3.4); MEAN CELL VOLUME 92.1 fL (80-100); MEAN CORPUSCULAR HEMOGLOBIN 29.9 pg (25-34); MEAN CORPUSCULAR HGB CONC 32.4 g/dl (32-36); MEAN PLATELET VOLUME 8.7 fL (7.4-10.4); MONO % 4.2 %; NEUT % 70.9 %; NEUT ABS # 3.38 K/uL (1.4-6.5); PLATELET COUNT 335 K/uL (130-400); RED CELL DISTRIBUTION WIDTH CV 14.4 % (11.5-14.5); WHITE BLOOD COUNT 4.77 K/uL (4.8-10.8)
[2017-12-30 00:48] LABS: ALT/SGPT 34 U/L (12-78); AST/SGOT 47 U/L (15-37); BLOOD UREA NITROGEN 8 mg/dl (7-18); CALCIUM 7.8 mg/dl (8.5-10.1); CARBON DIOXIDE 26 mmol/L (21-32); CREATININE 0.65 mg/dl (0.60-1.40); GLUCOSE 81 mg/dl (70-99); LIPASE 208 U/L (73-393); SODIUM 143 mmol/L (136-145)
[2017-12-30 01:02] LABS: ALKALINE PHOSPHATASE 977 U/L (45-117)
[2017-12-30] MEDS ORDERED: DiphenhydrAMINE HCL 50 MG/ML VIAL IV STA (01:36)
[2017-12-30] MEDS ORDERED: HYDROmorphone INJ 0.5 MG/0.5 ML SYR IV STA ×2 (01:36→05:32)
[2017-12-30] MEDS ORDERED: METOCLOPRAMIDE HCL INJ 5 MG/ML 2 ML VIAL IV. STA (01:36)
[2017-12-30 03:16] VITALS: TEMP 36.9
[2017-12-30] MEDS ORDERED: POTASSIUM CHLORIDE 10 MEQ TABCR PO STA (03:18)
[2017-12-30] MEDS ORDERED: OXYCODONE/ACETAMINOPHEN 5-325 TAB PO STA (04:01)
[2017-12-30] MEDS ORDERED: PERCOCET HOME PACK PO ONE (05:45)
--- NOTE | 2017-12-30 05:47 | DIAGNOSTIC IMAGING REPORT ---
CHEST ONE VIEW PORTABLE CLINICAL HISTORY: 57 years-old Male presenting with abd pain. TECHNIQUE: Portable upright AP view of the chest was obtained. COMPARISON: 04/19/2017. FINDINGS: Atherosclerosis of the aortic arch. Cardiac silhouette normal in size. Lungs and pleural spaces clear. Osseous structures normal. Upper abdomen normal. IMPRESSION: 1. No acute cardiopulmonary disease. Electronically signed by: Thom Mistry M.D. 12/30/2017 5:45 AM Dictated Date/Time: 12/30/2017 5:44 AM
[2017-12-30 06:00] VITALS: BP 105/54; PULSE 68; O2SAT 100
--- NOTE | 2017-12-30 06:06 | DIAGNOSTIC IMAGING REPORT ---
ABD/PELVIS IV AND ORAL CONT CLINICAL HISTORY: 57 years-old Male presenting with abd pain, chills, recent biliary drain. TECHNIQUE: Multidetector CT of the abdomen and pelvis was performed after the administration of oral and intravenous contrast. IV contrast: 120 mL of Optiray 320. A dose lowering technique was used consistent with the principles of ALARA (as low as reasonably achievable). COMPARISON: 12/18/2017. CT DOSE (mGy.cm): The estimated cumulative dose is 901.87 mGy.cm. FINDINGS: Image quality is degraded by positioning of the arms at the sides with resultant streak artifact. This limits diagnostic sensitivity. [employer] Account Assistant topogram: Right total hip arthroplasty and percutaneous drain in place. Lung bases: Minimal basilar opacities, likely atelectasis. Normal heart size. No pericardial or pleural effusion. Liver: Normal morphology. No liver lesion. Patent hepatic vasculature. Biliary: Moderate diffuse intrahepatic and extrahepatic biliary ductal dilatation. The common duct is abruptly cut off at the level of the pancreatic head where there are focal hyperdensities (series 3 images 181 and 188). The intrapancreatic portion of the common duct is nondilated and not well visualized. Cholecystectomy tube in place. The gallbladder is incompletely decompressed. No CT evidence of wall thickening. Trace pericholecystic fluid present. Evaluation for pericholecystic inflammatory change is difficult on the presence of anasarca. Pancreas: Mild diffuse pancreatic ductal dilatation. The pancreatic duct is not well visualized in the pancreatic head. Spleen: Normal. Adrenal glands: Normal. Kidneys and ureters: Hypodensity in the left kidney likely simple cyst. No nephrolithiasis. No hydronephrosis. Ureters poorly visualized. Bladder: Mild circumferential bladder wall thickening allowing for underdistention. Pelvic organs: Prostate and seminal vesicles normal. Bowel: Mild wall thickening of the anorectal junction. Is nonspecific. The appendix is poorly visualized but appears normal. No bowel obstruction. Postsurgical changes of antecolic Khloe-en-Y gastric bypass. Distal small bowel anastomoses appear patent. No abnormal distention of the pancreatic biliary limb or excluded gastric remnant. Peritoneal cavity: No free fluid or intraperitoneal gas. Lymph nodes: Prominent lymph node in the right periaortic/right retrocrural region measuring 9 mm in short axis (series 3 image 70), possibly reactive. No pathologically enlarged lymph node in the abdomen or pelvis by CT size criteria though scattered prominent lymph nodes are noted throughout. Vasculature: Atherosclerosis of the normal caliber abdominal aorta. IVC Abdominal wall: Anasarca. Musculoskeletal: Total right hip arthroplasty. No gross evidence of hardware complication. Degenerative changes of the lower thoracic spine. IMPRESSION: 1. Anasarca. 2. Moderate intrahepatic and extrahepatic biliary ductal dilatation with findings concerning for choledocholithiasis at the level of the pancreatic head. 3. Percutaneous cystostomy tube in place. No braydon evidence of cholecystitis allowing for diffuse edema. 4. Pancreatic ductal dilatation with abrupt cutoff at the level of the pancreatic head may either be due to poor visualization of the pancreatic head or more likely compression secondary to the presence of distal choledocholithiasis. 5. Postsurgical changes of antecolic Khloe-en-Y gastric bypass. No bowel obstruction or evidence of complication. 6. Mild circumferential bladder wall thickening could be due to chronic outlet obstruction in the setting of benign prostatic hyperplasia or underdistention. The report will be called/faxed according to standard departmental protocol. Electronically signed by: Thom Mistry M.D. 12/30/2017 6:05 AM Dictated Date/Time: 12/30/2017 5:53 AM
== END 2017-12-30 05:53 | disposition home or self-care (01) ==
LOC: C.EDB 22:54
DX: R10.11 Right upper quadrant pain (principal); E87.6 Hypokalemia; F10.10 Alcohol abuse, uncomplicated; I10 Essential (primary) hypertension; M19.90 Unspecified osteoarthritis, unspecified site; F11.23 Opioid dependence with withdrawal; F43.10 Post-traumatic stress disorder, unspecified; Z98.84 Bariatric surgery status; Z96.649 Presence of unspecified artificial hip joint; Z96.659 Presence of unspecified artificial knee joint; Z83.3 Family history of diabetes mellitus; Z82.49 Family history of ischemic heart disease and other diseases of the circulatory system; F17.210 Nicotine dependence, cigarettes, uncomplicated

== ENCOUNTER 2018-01-12 18:27 | Emergency (ER) | payer OTHER ==
[~2018-01-12] VITALS: Ht 182.9 cm; Wt 95.0 kg
[2018-01-12 18:29] VITALS: Ht 182.9 cm; Wt 95.0 kg
[2018-01-12] MEDS ORDERED: HYDROmorphone INJ 1 MG/ML SYR IV STA ×3 (18:49→21:51)
[2018-01-12] MEDS ORDERED: SODIUM CHLORIDE 0.9% 1000ML 1,000 ML IV ONE (18:49)
[2018-01-12] MEDS ORDERED: SODIUM CHLORIDE 0.9% 1000ML 1,000 ML IV STA (18:49)
[2018-01-12] MEDS ORDERED: ONDANSETRON INJ 2 MG/ML 2 ML VIAL IV STA (18:49)
[2018-01-12] MEDS ORDERED: DiphenhydrAMINE HCL 50 MG/ML VIAL IV STA (18:49)
[2018-01-12] MEDS ORDERED: ANTICRE6 PO (18:52)
[2018-01-12 19:51] LABS: BASO % 0.5 %; BASO ABS # 0.03 K/uL (0-0.2); EOS % 2.2 %; EOS ABS # 0.12 K/uL (0-0.5); HEMATOCRIT 28.2 % (42-52); HEMOGLOBIN 9.3 g/dL (14.0-18.0); IG# 0.01 K/uL (0.00-0.02); LYMPH % 33.7 %; LYMPH ABS # 1.87 K/uL (1.2-3.4); MEAN PLATELET VOLUME 7.7 fL (7.4-10.4); MONO % 4.5 %; MONO ABS # 0.25 K/uL (0.11-0.59); NEUT % 58.9 %; NEUT ABS # 3.27 K/uL (1.4-6.5); PLATELET COUNT 486 K/uL (130-400); RED CELL DISTRIBUTION WIDTH CV 14.5 % (11.5-14.5); RED CELL DISTRIBUTION WIDTH SD 48.4 fL (36.4-46.3); WHITE BLOOD COUNT 5.55 K/uL (4.8-10.8)
[2018-01-12 20:00] LABS: INR 1.1 (0.9-1.1); PTT PATIENT 28.8 SECONDS (21.0-31.0)
[2018-01-12 20:07] LABS: ALBUMIN 1.9 gm/dl (3.4-5.0); ALT/SGPT 13 U/L (12-78); BLOOD UREA NITROGEN 7 mg/dl (7-18); CALCIUM 7.5 mg/dl (8.5-10.1); CARBON DIOXIDE 27 mmol/L (21-32); CREATININE 0.71 mg/dl (0.60-1.40); GLUCOSE 89 mg/dl (70-99); LIPASE 201 U/L (73-393); POTASSIUM 3.2 mmol/L (3.5-5.1); SODIUM 143 mmol/L (136-145)
[2018-01-12 20:10] LABS: ALKALINE PHOSPHATASE 235 U/L (45-117); AST/SGOT 18 U/L (15-37); TOTAL PROTEIN 5.6 gm/dl (6.4-8.2)
[2018-01-12] MEDS ORDERED: OPTIRAY 320 IV PRN (21:15)
--- NOTE | 2018-01-12 21:19 | DIAGNOSTIC IMAGING REPORT ---
ABD/PELVIS IV CONTRAST ONLY CLINICAL HISTORY: 57 years-old Male presenting with eval for biloma, abscess. TECHNIQUE: Multidetector CT of the abdomen and pelvis was performed after the administration of intravenous contrast. IV contrast: Optiray 320. A dose lowering technique was used consistent with the principles of ALARA (as low as reasonably achievable). COMPARISON: 01/07/2018. CT DOSE (mGy.cm): The estimated cumulative dose is 670.96 mGy.cm. FINDINGS: Shoe Handler topogram: Pigtail drain in place in the right upper quadrant. Displaced common bile duct stent. Total right hip arthroplasty. Lung bases: Minimal basilar opacities, likely atelectasis. Normal heart size. Coronary artery calcification. No pericardial or pleural effusion. Liver: Normal morphology. Interval development of a peripheral hypodensity at the right hepatic dome (series 3 image 49), which measures 1.9 cm in diameter. This was not previously evident. Patent hepatic vasculature. Biliary: Moderate diffuse intrahepatic biliary ductal dilatation, unchanged. The common duct is dilated. The common bile duct stent is displaced and now in the ascending portion of the duodenum. Gallbladder surgically absent. A pigtail catheter is now in place in the gallbladder fossa with significant interval decrease in size of the gallbladder fossa collection. Minimal foci of gas associated with this. Pancreas: Pancreatic ductal dilatation similar to prior exam. Parenchyma otherwise normal. No gross evidence of a pancreatic head mass. Spleen: Normal. Adrenal glands: Normal. Kidneys and ureters: Well-defined hypodensity in the left kidney, likely simple cyst. No nephrolithiasis. No hydronephrosis. Ureters poorly evaluated.. Bladder: Circumferential bladder wall thickening. Pelvic organs: Poorly evaluated. Bowel: Postsurgical changes of antecolic Khloe-en-Y gastric bypass. The distal anastomosis is patent. A percutaneous gastrostomy or jejunostomy tube is noted at the level of the gastrojejunostomy. No bowel obstruction. Peritoneal cavity: Small amount of pelvic ascites. Mesentery is diffusely edematous evaluation of the abdomen extremely difficult. Few scattered foci of pneumoperitoneum, which have decreased from prior. Lymph nodes: No enlarged lymph nodes in the abdomen or pelvis. Vasculature: Atherosclerosis of the normal caliber abdominal aorta. IVC patent. Abdominal wall: Severe anasarca. Postsurgical changes of the midline ventral abdomen. Musculoskeletal: Total right hip arthroplasty. Degenerative change of the lower lumbar spine. IMPRESSION: 1. Interval placement of a pigtail drain in the gallbladder fossa with significant decrease in size of the fluid collection. 2. Interval development of a 1.9 cm hypodense lesion at the right hepatic dome. This raises concern for abscess. 3. Moderate intrahepatic biliary ductal dilatation, unchanged. This is likely secondary to displacement of the common bile duct stent, which is now in the ascending duodenum. 4. Pancreatic ductal dilatation, unchanged. 5. Circumferential bladder wall thickening could suggest cystitis or chronic bladder outlet obstruction. Correlate with urinalysis. This is unchanged from prior exam. 6. Small amount of ascites. 7. Post surgical changes of Khloe-en-Y gastric bypass and percutaneous gastrostomy or jejunostomy. 8. Severe volume overload. The report will be called/faxed according to standard departmental protocol. Electronically signed by: Thom Mistry M.D. 01/12/2018 9:17 PM Dictated Date/Time: 01/12/2018 9:06 PM
[2018-01-12] MEDS ORDERED: OXYC1TAB3 PO (23:06)
[2018-01-12 23:15] VITALS: BP 125/75; PULSE 122; TEMP 36.8; O2SAT 99
[2018-01-12] MEDS ORDERED: OXYCODONE IR HOME PACK PO ONE (23:15)
--- NOTE | 2018-01-13 00:18 | EMERGENCY ROOM VISIT NOTE ---
History Report prepared by [place]: Felicia Salas Under the Supervision of: Dr. Gianfranco Drummond M.D. First contact with patient: 18:37 Chief Complaint: ABDOMINAL PAIN Stated Complaint: SEVERE ABDOMINAL PAIN History of Present Illness The patient is a 57 year old male who presents to the Emergency Room with complaints of worsening abdominal pain starting yesterday. The patient states he had a gallbladder surgery a week and a half ago to remove gallstones. He reports that they found a cyst that got infected and was leaking bile. He reports that they put at tube the leaking area to collect the bile. He reports that it got better and they removed it, but it was replaced 3 days ago. He reports that he has had a gastrostomy tube placed since the first surgery. He reports that the pain he has is a burning pain. He currently rates his pain as a 10/10 in severity. The patient states that the pain is worse with movement, breathing, eating, drinking, and vomiting. He reports that he believes that he believes his bowel movements are just bile because they are the same color and smell the same. The patient notes that he has vomited 3 times since yesterday. The patient complains of back pain, worry for dehydration, weight loss, nausea, and leg swelling. The patient denies hematemesis, fever, and cough. Source of History: patient Onset: yesterday Position: abdomen Symptom Intensity: 10/10 Quality: burning Timing: worsening Modifying Factors (Worsening): eating, drinking, breathing, movement, other (vomiting) Associated Symptoms: + nausea, + vomiting, + back pain, No fevers, No cough Note: The patient complains of his bowel movements looking like bile, possible dehydration, weight loss, and leg swelling. The patient denies hematemesis. Review of Systems See HPI for pertinent positives & negatives. A total of 10 systems reviewed and were otherwise negative. 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 Nurse's notes were reviewed and I agree with. Family History Diabetes mellitus Heart disease Social History Smoking Status: Current Every Day Smoker Alcohol Use: heavy Drug Use: heroin, other Marital Status: Housing Status: lives with family Occupation Status: disabled Current/Historical Medications Scheduled [Antibiotic], 1 TAB PO BID Scheduled PRN Oxycodone Immediate Rel Tab (Roxicodone Ir), 1-2 TAB PO Q4H PRN for Severe Pain Allergies Coded Allergies: No Known Allergies (Verified , 01/12/18) Physical Exam Vital Signs Date Time Temp Pulse Resp B/P (MAP) Pulse Ox O2 Delivery O2 Flow Rate FiO2 01/12/18 23:15 36.8 122 17 125/75 99 01/12/18 21:59 122 17 126/76 99 Room Air 01/12/18 20:30 65 19 127/78 98 Room Air 01/12/18 19:45 59 20 137/85 100 Room Air 01/12/18 19:17 61 20 120/82 97 Room Air 01/12/18 18:29 36.8 71 20 124/83 98 Physical Exam General: Uncomfortable appearing middle aged male complaining of pain. No respiratory distress. HEENT: Normal cephalic atraumatic. Pupils are equal round and reactive to light. Extraocular movements are intact. Oropharynx is pink with moist mucous membranes. No swelling of the mouth lips or tongue. Neck: Supple with a midline trachea. No meningeal signs or stiffness, no JVD or bruits. No Stridor. Chest: Clear to auscultation bilaterally. No wheezes or rhonchi. No increased work of breathing. Heart: regular rate and rhythm. Abdomen: G tube drain in left abdomen. Biliary drain in the right. Dressing intact without draining. Small amount of yellowish drainage in the bag. Moderate tenderness in the abdomen, mostly right. Soft, nondistended without rebound guarding or rigidity. Extremities: No cyanosis clubbing or edema. No calf tenderness or assymetry Spine/Back. Non tender to palpation. No CVA tenderness Skin: Good turgor without rashes. Neurologic exam: Cranial nerves two through 12 are intact. Motor and sensation are intact and symmetrical throughout. Medical Decision & Procedures ER Provider Diagnostic Interpretation: Radiology results as stated below per my review and radiologist interpretation: ABD/PELVIS IV CONTRAST ONLY CLINICAL HISTORY: 57 years-old Male presenting with eval for biloma, abscess. TECHNIQUE: Multidetector CT of the abdomen and pelvis was performed after the administration of intravenous contrast. IV contrast: Optiray 320. A dose lowering technique was used consistent with the principles of ALARA (as low as reasonably achievable). COMPARISON: 01/07/2018. CT DOSE (mGy.cm): The estimated cumulative dose is 670.96 mGy.cm. FINDINGS: Aircraft Layout Worker topogram: Pigtail drain in place in the right upper quadrant. Displaced common bile duct stent. Total right hip arthroplasty. Lung bases: Minimal basilar opacities, likely atelectasis. Normal heart size. Coronary artery calcification. No pericardial or pleural effusion. Liver: Normal morphology. Interval development of a peripheral hypodensity at the right hepatic dome (series 3 image 49), which measures 1.9 cm in diameter. This was not previously evident. Patent hepatic vasculature. Biliary: Moderate diffuse intrahepatic biliary ductal dilatation, unchanged. The common duct is dilated. The common bile duct stent is displaced and now in the ascending portion of the duodenum. Gallbladder surgically absent. A pigtail catheter is now in place in the gallbladder fossa with significant interval decrease in size of the gallbladder fossa collection. Minimal foci of gas associated with this. Pancreas: Pancreatic ductal dilatation similar to prior exam. Parenchyma otherwise normal. No gross evidence of a pancreatic head mass. Spleen: Normal. Adrenal glands: Normal. Kidneys and ureters: Well-defined hypodensity in the left kidney, likely simple cyst. No nephrolithiasis. No hydronephrosis. Ureters poorly evaluated.. Bladder: Circumferential bladder wall thickening. Pelvic organs: Poorly evaluated. Bowel: Postsurgical changes of antecolic Khloe-en-Y gastric bypass. The distal anastomosis is patent. A percutaneous gastrostomy or jejunostomy tube is noted at the level of the gastrojejunostomy. No bowel obstruction. Peritoneal cavity: Small amount of pelvic ascites. Mesentery is diffusely edematous evaluation of the abdomen extremely difficult. Few scattered foci of pneumoperitoneum, which have decreased from prior. Lymph nodes: No enlarged lymph nodes in the abdomen or pelvis. Vasculature: Atherosclerosis of the normal caliber abdominal aorta. IVC patent. Abdominal wall: Severe anasarca. Postsurgical changes of the midline ventral abdomen. Musculoskeletal: Total right hip arthroplasty. Degenerative change of the lower lumbar spine. IMPRESSION: 1. Interval placement of a pigtail drain in the gallbladder fossa with significant decrease in size of the fluid collection. 2. Interval development of a 1.9 cm hypodense lesion at the right hepatic dome. This raises concern for abscess. 3. Moderate intrahepatic biliary ductal dilatation, unchanged. This is likely secondary to displacement of the common bile duct stent, which is now in the ascending duodenum. 4. Pancreatic ductal dilatation, unchanged. 5. Circumferential bladder wall thickening could suggest cystitis or chronic bladder outlet obstruction. Correlate with urinalysis. This is unchanged from prior exam. 6. Small amount of ascites. 7. Post surgical changes of Khloe-en-Y gastric bypass and percutaneous gastrostomy or jejunostomy. 8. Severe volume overload. The report will be called/faxed according to standard departmental protocol. Electronically signed by: Thom Mistry M.D. 01/12/2018 9:17 PM Dictated Date/Time: 01/12/2018 9:06 PM Laboratory Results 01/12/18 19:35 Red Blood Count 3.10, Mean Corpuscular Volume 91.0, Mean Corpuscular Hemoglobin 30.0, Mean Corpuscular Hemoglobin Concent 33.0, Mean Platelet Volume 7.7, Neutrophils (%) (Auto) 58.9, Lymphocytes (%) (Auto) 33.7, Monocytes (%) (Auto) 4.5, Eosinophils (%) (Auto) 2.2, Basophils (%) (Auto) 0.5, Neutrophils # (Auto) 3.27, Lymphocytes # (Auto) 1.87, Monocytes # (Auto) 0.25, Eosinophils # (Auto) 0.12, Basophils # (Auto) 0.03 01/12/18 19:35 Test 01/12/18 19:35 White Blood Count 5.55 K/uL (4.8-10.8) Red Blood Count 3.10 M/uL (4.7-6.1) Hemoglobin 9.3 g/dL (14.0-18.0) Hematocrit 28.2 % (42-52) Mean Corpuscular Volume 91.0 fL (80-100) Mean Corpuscular Hemoglobin 30.0 pg (25-34) Mean Corpuscular Hemoglobin Concent 33.0 g/dl (32-36) Platelet Count 486 K/uL (130-400) Mean Platelet Volume 7.7 fL (7.4-10.4) Neutrophils (%) (Auto) 58.9 % Lymphocytes (%) (Auto) 33.7 % Monocytes (%) (Auto) 4.5 % Eosinophils (%) (Auto) 2.2 % Basophils (%) (Auto) 0.5 % Neutrophils # (Auto) 3.27 K/uL (1.4-6.5) Lymphocytes # (Auto) 1.87 K/uL (1.2-3.4) Monocytes # (Auto) 0.25 K/uL (0.11-0.59) Eosinophils # (Auto) 0.12 K/uL (0-0.5) Basophils # (Auto) 0.03 K/uL (0-0.2) RDW Standard Deviation 48.4 fL (36.4-46.3) RDW Coefficient of Variation 14.5 % (11.5-14.5) Immature Granulocyte % (Auto) 0.2 % Immature Granulocyte # (Auto) 0.01 K/uL (0.00-0.02) Prothrombin Time 11.2 SECONDS (9.0-12.0) Prothromb Time International Ratio 1.1 (0.9-1.1) Activated Partial Thromboplast Time 28.8 SECONDS (21.0-31.0) Partial Thromboplastin Ratio 1.1 Anion Gap 6.0 mmol/L (3-11) Est Creatinine Clear Calc Drug Dose 140.6 ml/min Estimated GFR () 122.4 Estimated GFR (Non- 105.6 BUN/Creatinine Ratio 9.4 (10-20) Calcium Level 7.5 mg/dl (8.5-10.1) Total Bilirubin 0.2 mg/dl (0.2-1) Direct Bilirubin < 0.1 mg/dl (0-0.2) Aspartate Amino Transf (AST/SGOT) 18 U/L (15-37) Alanine Aminotransferase (ALT/SGPT) 13 U/L (12-78) Alkaline Phosphatase 235 U/L (45-117) Total Protein 5.6 gm/dl (6.4-8.2) Albumin 1.9 gm/dl (3.4-5.0) Lipase 201 U/L (73-393) Laboratory studies as stated above per my review. Medications Administered Medications (Trade) Dose Ordered Sig/Lm Route Start Time Stop Time Status Last Admin Dose Admin Sodium Chloride 1,000 ml @ 999 mls/hr Q1H1M STAT IV 01/12/18 18:49 01/12/18 19:49 DC 01/12/18 19:10 999 MLS/HR Sodium Chloride 1,000 ml @ 150 mls/hr Q6H40M ONCE IV 01/12/18 18:49 01/13/18 01:28 DC 01/12/18 18:49 150 MLS/HR Ondansetron HCl (Zofran Inj) 4 mg NOW STAT IV 01/12/18 18:49 01/12/18 18:51 DC 01/12/18 19:09 4 MG Hydromorphone HCl (Dilaudid Inj) 1 mg NOW STAT IV 01/12/18 18:49 01/12/18 18:51 DC 01/12/18 19:10 1 MG Diphenhydramine HCl (Benadryl Inj) 25 mg NOW STAT IV 01/12/18 18:49 01/12/18 18:51 DC 01/12/18 19:09 25 MG Hydromorphone HCl (Dilaudid Inj) 1 mg NOW STAT IV 01/12/18 19:40 01/12/18 19:42 DC 01/12/18 19:45 1 MG Hydromorphone HCl (Dilaudid Inj) 1 mg NOW STAT IV 01/12/18 21:51 01/12/18 21:52 DC 01/12/18 22:01 1 MG Oxycodone HCl (Roxicodone Immediate Rel 5MG Home Pack) 1 homepack UD ONCE PO 01/12/18 23:15 01/12/18 23:16 DC 01/12/18 23:15 1 HOMEPACK ED Course 183: Past medical records reviewed. The patient was evaluated in room B8, and a complete history and physical examination were performed. 184: Ordered Benadryl Inj 25 mg IV, Dilaudid Inj 1 mg IV, Zofran Inj 4 mg IV, NSS 1000 ml @ 150 mls/hr IV, NSS 1000 ml @ 999 mls/hr IV. 1939: Ordered Dilaudid Inj 1 mg IV. 1943: I reevaluated the patient and he still has abdominal pain. 2013: I reevaluated the patient and he appears comfortable. 2146: I reevaluated the patient and he is doing okay. 2150: Ordered Dilaudid Inj 1 mg IV. 2200: I discussed the patient's case with Dr. Sheehan- [facility] Hospitalist. He doesn't feel that the patient needs to be transferred. 3: I reevaluated the patient and the showcase trimmer is going to try to set him up an appointment with a PCP. 2310: Upon reevaluation, the patient is doing well. I discussed the results and treatment plan with him. He verbalized agreement of the treatment plan. The patient was discharged home. 5: Ordered Oxycodone HCl 1 homepack PO. Medical Decision Differential diagnoses include post op complications, biloma, infection, pancreatitis, bowel obstruction, dehydration, electrolyte abnormality, metabolic abnormality. This patient comes in as described above. He was placed in room B8. He has had a very complicated medical history as of late. He had his gallbladder removed at [facility]. Prior to that he had a biliary drain. He was seen here about 5 days ago and had a biloma and was sent to [facility] and had a biliary drain placed for that. He is currently out of pain medication. He has had no fever he has diffuse pain. IV access was established was hydrated with IV normal saline while he was here and he did receive several doses of IV Dilaudid as well as IV Zofran. he has no white count or fever. he has no significant electrolyte or metabolic abnormalities. LFTs are not significant any elevated. I did repeat his CAT scan and he has a small area and he has the drain in place with the biloma drained significantly compared to previous. He has a 1.8 cm hypodensity above the liver which could represent a small abscess. I discussed this with his surgeon at [facility] who knows him well he felt that he did not need to be admitted or go to [facility] and he felt like this was residual from the surgery and there is nothing large enough to place a drain in additionally and had no other signs of infection. I do think the patient needs to get established with a primary care physician as there are some pain management concerns as well. I did have her case management team talk to him and there can help him. He will be given a home pack of OxyIR as well as small prescription. he is in agreement with this plan and does not desire to go to [facility] ([place], [place]) either. He was encouraged to return if: increasing pain, worsening of symptoms, fever or chills, any new problems or concerns. He was warned that OxyIR could make him drowsy and do not take before drinking, driving , working. do not take with any other narcotics or sedating medication or street drugs. He apparently does have a history of heroin use but denies that he he currently uses. He will follow-up with her primary care physician this week for recheck. Medication Reconcilliation Current Medication List: was personally reviewed by me Blood Pressure Screening Patient's blood pressure: Normal blood pressure Blood pressure disposition: Did not require urgent referral Consults Time Called: 2149 Consulting Physician: Dr. Paul Maohney Hospitalist Returned Call: 2200 I discussed the patient's case with Dr. Paul Mahoney Hospitalist. He doesn't feel that the patient needs to be transferred. Impression Primary Impression: Central abdominal pain Scribe Attestation The scribe's documentation has been prepared under my direction and personally reviewed by me in its entirety. I confirm that the note above accurately reflects all work, treatment, procedures, and medical decision making performed by me. Departure Information Dispostion Home / Self-Care Prescriptions Oxycodone Immediate Rel Tab (ROXICODONE IR) 5 Mg Tab 1-2 TAB PO Q4H Y for Severe Pain, #24 TAB Prov: Gianfranco Drummond M.D. 01/12/18 Referrals Sybil Najera (PCP) Forms Call Back Authorization, HOME CARE DOCUMENTATION FORM, IMPORTANT VISIT INFORMATION Patient Instructions My [facility] Additional Instructions Rest. Drink plenty of fluids. Use OxyIR 5 mg, 1 or 2 pills every 4-6 hours as needed for pain OxyIR may make you drowsy do not take before drinking, driving, working Do not take OxyIR with any other pain medications or narcotics or street drugs Return if: Fever chills, increasing pain, any new problems or concerns Follow-up with your regular doctor, get established this week. Our case management team will help you
== END 2018-01-12 23:16 | disposition home or self-care (01) ==
LOC: C.EDB 18:27
DX: R10.84 Generalized abdominal pain (principal); I10 Essential (primary) hypertension; M19.90 Unspecified osteoarthritis, unspecified site; F43.10 Post-traumatic stress disorder, unspecified; Z83.3 Family history of diabetes mellitus; Z82.49 Family history of ischemic heart disease and other diseases of the circulatory system; F17.200 Nicotine dependence, unspecified, uncomplicated; F11.20 Opioid dependence, uncomplicated

== ENCOUNTER 2018-01-15 13:41 | Emergency (ER) | payer OTHER ==
[~2018-01-15] VITALS: Ht 182.9 cm; Wt 90.5 kg
[~2018-01-15 13:41] MED LIST changes: +ANTICRE6 PO; +OXYC1TAB3 PO; -RANI150T3 PO
[2018-01-15 13:45] VITALS: TEMP 37.2; Ht 182.9 cm; Wt 90.5 kg
[2018-01-15] MEDS ORDERED: ONDANSETRON INJ 2 MG/ML 2 ML VIAL IV STA (14:47)
[2018-01-15] MEDS ORDERED: KETOROLAC TROMETHAMINE 30 MG/ML VIAL IV STA (14:47)
[2018-01-15] MEDS ORDERED: OPTIRAY 320 IV PRN (15:15)
[2018-01-15] MEDS ORDERED: MoRPHine SULFATE 10 MG/ML CARP/VIAL IV STA (16:09)
--- NOTE | 2018-01-15 16:11 | DIAGNOSTIC IMAGING REPORT ---
CT SCAN OF THE ABDOMEN AND PELVIS WITH IV CONTRAST CLINICAL HISTORY: Generalized abdominal pain. COMPARISON STUDY: Multiple prior abdominal CT scans, most recently dated 01/12/2018. TECHNIQUE: Following the IV administration of 95 cc of Optiray 320, CT scan of the abdomen and pelvis is performed from the lung bases to the proximal femora. Images are reviewed in the axial, sagittal, and coronal planes. IV contrast was administered without complication. A dose lowering technique was utilized adhering to the principles of ALARA. The examination is degraded by large body habitus, and by streak artifact from the body wall abutting the CT gantry. CT DOSE: 678.08 mGy.cm FINDINGS: Lung bases: The heart is enlarged and without pericardial effusion. There are trace pleural effusions with dependent atelectasis. Liver: The contrast-enhanced liver is normal in size, contour, and attenuation. There is moderate intrahepatic biliary ductal dilatation. The hepatic veins and portal veins are patent. Gallbladder: The gallbladder surgically absent. Spleen: Normal in size and attenuation. Pancreas: Grossly unremarkable. Adrenal glands: Unremarkable. Kidneys: The contrast enhanced kidneys are normal in size and without hydronephrosis. The kidneys enhance symmetrically. A 1.9 cm cyst is noted in the left upper pole. Abdominal vasculature: The abdominal aorta is normal in course and caliber noting mild atherosclerotic calcification. Stomach and bowel: There are postoperative changes consistent with a Khloe-en-Y gastric bypass surgery. A percutaneous gastrostomy tube is present in the distal stomach. An indeterminant stent is located within the distal duodenum. No bowel obstruction is identified. The appendix is not identified. Peritoneum: There are small foci of intraperitoneal free air identified below the diaphragm. There is a small volume of abdominopelvic ascites. Mesenteric edema is noted. A percutaneous drain is coiled in the gallbladder fossa. The residual fluid collection has continued to decrease in size and now measures a maximum of 1.8 cm. Lymphadenopathy: None. Pelvic viscera: Evaluation of the pelvis is degraded by streak artifact from a right hip arthroplasty. The bladder, prostate, and seminal vesicles are grossly unremarkable but suboptimally assessed due to streak artifact. Skeletal structures: The skeletal structures are osteopenic. No lytic or blastic lesions are seen. There is mild lumbosacral spondylosis. Sclerotic change is seen in the sacroiliac joints. A right hip arthroplasty is in place. Soft tissues: There is diffuse body wall edema. IMPRESSION: 1. A percutaneous catheter is coiled in the gallbladder fossa. There is only trace residual fluid collection at this site. 2. There is evidence of fluid overload, with diffuse anasarca of the body wall, a small volume of abdominopelvic ascites, mesenteric edema, and trace pleural effusions. This has modestly increased from 01/12/2018. 3. Small foci of intraperitoneal free air are nonspecific and likely related to the presence of an indwelling drain. Clinical correlation will be required. 4. There are postoperative changes from a Khloe-en-Y gastric bypass procedure. No bowel obstruction is identified. A gastrostomy tube is present in the distal stomach. 5. An indeterminant stent is noted within the distal duodenum, likely representing a migrated stent. Correlation with the patient's medical history will be required. 6. There is moderate intrahepatic biliary ductal dilatation, similar to 01/12/2018. 7. Additional findings as above. Electronically signed by: Juan Panda M.D. 01/15/2018 4:10 PM Dictated Date/Time: 01/15/2018 3:59 PM
[2018-01-15] MEDS ORDERED: MoRPHine SULFATE 4 MG/ML 1 ML CARP\\VIAL ONE (16:16)
[2018-01-15 17:18] VITALS: O2SAT 98
[2018-01-15 17:43] LABS: BASO % 0.5 %; BASO ABS # 0.03 K/uL (0-0.2); EOS % 1.7 %; EOS ABS # 0.11 K/uL (0-0.5); HEMATOCRIT 28.5 % (42-52); HEMOGLOBIN 9.8 g/dL (14.0-18.0); IG# 0.01 K/uL (0.00-0.02); LYMPH ABS # 1.96 K/uL (1.2-3.4); MEAN CELL VOLUME 89.9 fL (80-100); MEAN CORPUSCULAR HEMOGLOBIN 30.9 pg (25-34); MEAN CORPUSCULAR HGB CONC 34.4 g/dl (32-36); MEAN PLATELET VOLUME 7.7 fL (7.4-10.4); MONO % 5.4 %; MONO ABS # 0.34 K/uL (0.11-0.59); NEUT % 61.2 %; NEUT ABS # 3.88 K/uL (1.4-6.5); PLATELET COUNT 405 K/uL (130-400); RED CELL DISTRIBUTION WIDTH CV 14.5 % (11.5-14.5); RED CELL DISTRIBUTION WIDTH SD 47.9 fL (36.4-46.3); WHITE BLOOD COUNT 6.33 K/uL (4.8-10.8)
[2018-01-15 18:03] LABS: ALBUMIN 1.8 gm/dl (3.4-5.0); ALT/SGPT 17 U/L (12-78); AST/SGOT 15 U/L (15-37); BLOOD UREA NITROGEN 8 mg/dl (7-18); CALCIUM 7.8 mg/dl (8.5-10.1); CARBON DIOXIDE 26 mmol/L (21-32); CREATININE 0.66 mg/dl (0.60-1.40); GLUCOSE 81 mg/dl (70-99); LIPASE 230 U/L (73-393); POTASSIUM 3.6 mmol/L (3.5-5.1); SODIUM 141 mmol/L (136-145)
[2018-01-15 18:06] LABS: ALKALINE PHOSPHATASE 335 U/L (45-117); TOTAL PROTEIN 5.6 gm/dl (6.4-8.2)
[2018-01-15] MEDS ORDERED: OXYC1TAB3 PO (18:08)
[2018-01-15] MEDS ORDERED: ONDA4TAB46 PO (18:08)
[2018-01-15] MEDS ORDERED: hydrOXYzine HCL 25 MG TAB PO STA (18:09)
[2018-01-15] MEDS ORDERED: ONDANSETRON 4MG OD TAB PO STA (18:09)
[2018-01-15] MEDS ORDERED: OXYCODONE HCL IR 5 MG TAB (IMMEDIATE RELEASE) PO STA (18:09)
--- NOTE | 2018-01-15 18:09 | EMERGENCY ROOM VISIT NOTE ---
History Report prepared by [place]: Kirk Colon Under the Supervision of: Dr. Silvano Dumas M.D. First contact with patient: 14:34 Chief Complaint: ABDOMINAL PAIN Stated Complaint: ABDOMINAL PAIN Nursing Triage Summary: Abd pain, bloating, nausea, vomiting. Pt with abd drains and states they are not draining. History of Present Illness The patient is a 57 year old black male with a past medical history of alcohol abuse, HTN, gastric bypass, heroin abuse, osteoarthritis, PTSD, s/p hip replacement, s/p knee replacement who presents to the ED with a cc of constant diffuse abdominal pain beginning a few days ago. Pain is worse on the right side. He rates his pain as a 10/10 in severity. Positive: leg swelling, nausea. Patient was seen in the ED three days ago and was told that he has evidence of liver abscess by CT. He notes that he was transferred to [place] a few weeks ago for biloma. He spent two days in the hospital, and had a new drain placed one week ago. Source of History: patient Onset: A few days ago Position: abdomen (diffuse, worse on the right) Symptom Intensity: 10/10 Timing: constant Associated Symptoms: + nausea Note: Positive: leg swelling. Review of Systems See HPI for pertinent positives and negatives. A total of ten systems were reviewed and were otherwise negative. 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 (22) Status post herniorrhaphy (23) Vomiting Surgical Problems: (1) History of gastric bypass (2) History of hip replacement (3) History of knee replacement Family History Diabetes mellitus Heart disease Social History Smoking Status: Current Every Day Smoker Alcohol Use: heavy Drug Use: heroin, other Marital Status: Housing Status: lives with family Occupation Status: disabled Current/Historical Medications Scheduled PRN Ondansetron Hcl (Zofran), 4 MG PO Q8H PRN for Nausea Oxycodone Immediate Rel Tab (Roxicodone Ir), 1-2 TAB PO Q4H PRN for Severe Pain Oxycodone Immediate Rel Tab (Roxicodone Ir), 5 MG PO Q4H PRN for Severe Pain Allergies Coded Allergies: No Known Allergies (Verified , 01/15/18) Physical Exam Vital Signs Date Time Temp Pulse Resp B/P (MAP) Pulse Ox O2 Delivery O2 Flow Rate FiO2 01/15/18 18:50 88 21 123/80 01/15/18 17:18 57 16 116/78 98 01/15/18 15:27 59 01/15/18 15:24 64 20 124/80 96 01/15/18 13:45 37.2 67 18 125/73 96 Room Air Physical Exam GENERAL: Awake, alert, uncomfortable-appearing, appears to be in pain. HENT: Normocephalic, atraumatic. EYES: Normal conjunctiva. Sclera non-icteric. NECK: Supple. No nuchal rigidity. FROM. RESPIRATORY: CTAB, no rhonchi, wheezing, crackles CARDIAC: RRR, no MRG ABDOMEN: Soft, BS+. Midline incisional scar. G-tube in LUQ. Perc drain in RUQ draining yellowish-greenish fluid. No purulent drainage. No blood. Diffuse abdominal TTP. MSK: No chest wall TTP. Trace edema bilaterally. Healing eschar over the right nowak. NEURO: GCS 15, CN 2-12 intact, moves all 4s on command SKIN: No rash or jaundice noted. Medical Decision & Procedures ER Provider Diagnostic Interpretation: Radiology results as stated below per my review and radiologist interpretation: CT SCAN OF THE ABDOMEN AND PELVIS WITH IV CONTRAST FINDINGS: Lung bases: The heart is enlarged and without pericardial effusion. There are trace pleural effusions with dependent atelectasis. Liver: The contrast-enhanced liver is normal in size, contour, and attenuation. There is moderate intrahepatic biliary ductal dilatation. The hepatic veins and portal veins are patent. Gallbladder: The gallbladder surgically absent. Spleen: Normal in size and attenuation. Pancreas: Grossly unremarkable. Adrenal glands: Unremarkable. Kidneys: The contrast enhanced kidneys are normal in size and without hydronephrosis. The kidneys enhance symmetrically. A 1.9 cm cyst is noted in the left upper pole. Abdominal vasculature: The abdominal aorta is normal in course and caliber noting mild atherosclerotic calcification. Stomach and bowel: There are postoperative changes consistent with a Khloe-en-Y gastric bypass surgery. A percutaneous gastrostomy tube is present in the distal stomach. An indeterminant stent is located within the distal duodenum. No bowel obstruction is identified. The appendix is not identified. Peritoneum: There are small foci of intraperitoneal free air identified below the diaphragm. There is a small volume of abdominopelvic ascites. Mesenteric edema is noted. A percutaneous drain is coiled in the gallbladder fossa. The residual fluid collection has continued to decrease in size and now measures a maximum of 1.8 cm. Lymphadenopathy: None. Pelvic viscera: Evaluation of the pelvis is degraded by streak artifact from a right hip arthroplasty. The bladder, prostate, and seminal vesicles are grossly unremarkable but suboptimally assessed due to streak artifact. Skeletal structures: The skeletal structures are osteopenic. No lytic or blastic lesions are seen. There is mild lumbosacral spondylosis. Sclerotic change is seen in the sacroiliac joints. A right hip arthroplasty is in place. Soft tissues: There is diffuse body wall edema. IMPRESSION: 1. A percutaneous catheter is coiled in the gallbladder fossa. There is only trace residual fluid collection at this site. 2. There is evidence of fluid overload, with diffuse anasarca of the body wall, a small volume of abdominopelvic ascites, mesenteric edema, and trace pleural effusions. This has modestly increased from 01/12/2018. 3. Small foci of intraperitoneal free air are nonspecific and likely related to the presence of an indwelling drain. Clinical correlation will be required. 4. There are postoperative changes from a Khloe-en-Y gastric bypass procedure. No bowel obstruction is identified. A gastrostomy tube is present in the distal stomach. 5. An indeterminant stent is noted within the distal duodenum, likely representing a migrated stent. Correlation with the patient's medical history will be required. 6. There is moderate intrahepatic biliary ductal dilatation, similar to 01/12/2018. 7. Additional findings as above. Electronically signed by: Juan Panda M.D. 01/15/2018 4:10 PM Laboratory Results 01/15/18 17:36 Red Blood Count 3.17, Mean Corpuscular Volume 89.9, Mean Corpuscular Hemoglobin 30.9, Mean Corpuscular Hemoglobin Concent 34.4, Mean Platelet Volume 7.7, Neutrophils (%) (Auto) 61.2, Lymphocytes (%) (Auto) 31.0, Monocytes (%) (Auto) 5.4, Eosinophils (%) (Auto) 1.7, Basophils (%) (Auto) 0.5, Neutrophils # (Auto) 3.88, Lymphocytes # (Auto) 1.96, Monocytes # (Auto) 0.34, Eosinophils # (Auto) 0.11, Basophils # (Auto) 0.03 01/15/18 17:36 Test 01/15/18 17:36 White Blood Count 6.33 K/uL (4.8-10.8) Red Blood Count 3.17 M/uL (4.7-6.1) Hemoglobin 9.8 g/dL (14.0-18.0) Hematocrit 28.5 % (42-52) Mean Corpuscular Volume 89.9 fL (80-100) Mean Corpuscular Hemoglobin 30.9 pg (25-34) Mean Corpuscular Hemoglobin Concent 34.4 g/dl (32-36) Platelet Count 405 K/uL (130-400) Mean Platelet Volume 7.7 fL (7.4-10.4) Neutrophils (%) (Auto) 61.2 % Lymphocytes (%) (Auto) 31.0 % Monocytes (%) (Auto) 5.4 % Eosinophils (%) (Auto) 1.7 % Basophils (%) (Auto) 0.5 % Neutrophils # (Auto) 3.88 K/uL (1.4-6.5) Lymphocytes # (Auto) 1.96 K/uL (1.2-3.4) Monocytes # (Auto) 0.34 K/uL (0.11-0.59) Eosinophils # (Auto) 0.11 K/uL (0-0.5) Basophils # (Auto) 0.03 K/uL (0-0.2) RDW Standard Deviation 47.9 fL (36.4-46.3) RDW Coefficient of Variation 14.5 % (11.5-14.5) Immature Granulocyte % (Auto) 0.2 % Immature Granulocyte # (Auto) 0.01 K/uL (0.00-0.02) Anion Gap 4.0 mmol/L (3-11) Est Creatinine Clear Calc Drug Dose 138.8 ml/min Estimated GFR () 126.1 Estimated GFR (Non- 108.8 BUN/Creatinine Ratio 11.8 (10-20) Calcium Level 7.8 mg/dl (8.5-10.1) Total Bilirubin 0.3 mg/dl (0.2-1) Direct Bilirubin < 0.1 mg/dl (0-0.2) Aspartate Amino Transf (AST/SGOT) 15 U/L (15-37) Alanine Aminotransferase (ALT/SGPT) 17 U/L (12-78) Alkaline Phosphatase 335 U/L (45-117) Total Protein 5.6 gm/dl (6.4-8.2) Albumin 1.8 gm/dl (3.4-5.0) Lipase 230 U/L (73-393) Laboratory results reviewed by me Medications Administered Medications (Trade) Dose Ordered Sig/Lm Route Start Time Stop Time Status Last Admin Dose Admin Ondansetron HCl (Zofran Inj) 4 mg NOW STAT IV 01/15/18 14:47 01/15/18 14:48 DC 01/15/18 15:22 4 MG Ketorolac Tromethamine (Toradol Inj) 30 mg NOW STAT IV 01/15/18 14:47 01/15/18 14:48 DC 01/15/18 15:22 30 MG Morphine Sulfate (MoRPHine SULFATE INJ) 8 mg STK-MED ONCE .ROUTE 01/15/18 16:16 01/15/18 16:17 DC 01/15/18 16:18 8 MG Oxycodone HCl (Roxicodone Immediate Rel Tab) 5 mg NOW STAT PO 01/15/18 18:09 01/15/18 18:10 DC 01/15/18 18:37 5 MG Ondansetron HCl (Zofran Odt) 4 mg NOW STAT PO 01/15/18 18:09 01/15/18 18:10 DC 01/15/18 18:36 4 MG Hydroxyzine HCl (Vistaril Tab) 25 mg NOW STAT PO 01/15/18 18:09 01/15/18 18:10 DC 01/15/18 18:36 25 MG ED Course 1448: The patient was evaluated in room B5. A complete history and physical exam was performed. 1540: Patient reassessed 1656: Patient reassessed. Told results of CT and given additional pain meds. Long discussion over need to f/u w/ PCP, specialists, and possible pain management referral 1800: Patient reassessed. Additional pain/nausea meds given. Told results of blood work. Patient told to f/u and d/c'ed to home. Medical Decision Differential diagnosis: Etiologies such as appendicitis, diverticulitis, PUD, biliary pathology, UTI, pancreatitis, obstruction, mesenteric ischemia, aortic pathology, infections, inflammatory bowel disease, renal colic, as well as others were entertained. Nursing notes reviewed. Ancillary studies and prior records reviewed. Patient was seen and evaluated at bedside. Patient was seen recently and has been seen several times for complications 2/2 to RYGB and associated cholecystitis, choledocholithiasis and subsequent biloma and perc drain placement s/p procedure. Patient complains of ab pain, n/v. Patient at bedside has perc drain and G tube in place. Perc drain draining green/yellow fluid. No purulent or sanguinous drainage. Patient w/ diffuse ab pain. Blood work completed, CT A/P also completed. C/T doesn't show much acute change. Drains in place. Patient does have ascites and some edema; however, believe this is related to patients recent procedures. Patient given pain/ nausea medications. Upon reassessment patient feeling improved. Patient pending follow up w/ [facility] where procedures done later this month. Has f/u w/ PCP scheduled in [facility] also pending. Informed of CT results. Called lab. Unable to process specimens so redrawn. Additional pain/nausea meds given. Patient tolerating PO at bedside including popsicle, soda, and saltines. patient WBC WNL. Chronic stable anemia. Mild hypocalcemia. patient w/ low albumin/protein likely consistent w/ prior h/o of alcohol abuse and recent procedures. Patient VSS and not septic. Do not believe patient requires further trx here in hospital. Patient informed he will have to try and cope w/ some pain given his recent procedures and that the PCP f/u and specialist f/u will hopefully help ameliorate discomfort also. Patient deemed suitable for outpatient f/u and d/c at this time. All questions were answered and the patient was pleased with the treatment. Return instructions were outlined and the patient was discharged in stable condition. Medication Reconcilliation Current Medication List: was personally reviewed by me Blood Pressure Screening Patient's blood pressure: Normal blood pressure Blood pressure disposition: Did not require urgent referral Impression Primary Impression: Abdominal pain Additional Impressions: Nausea & vomiting Anemia Scribe Attestation The scribe's documentation has been prepared under my direction and personally reviewed by me in its entirety. I confirm that the note above accurately reflects all work, treatment, procedures, and medical decision making performed by me. Departure Information Dispostion Home / Self-Care Prescriptions Ondansetron Hcl (ZOFRAN) 4 Mg Tab 4 MG PO Q8H Y for Nausea, #15 TAB Prov: Silvano Dumas M.D. 01/15/18 Oxycodone Immediate Rel Tab (ROXICODONE IR) 5 Mg Tab 5 MG PO Q4H Y for Severe Pain for 3 Days, #12 TAB Prov: Silvano Dumas M.D. 01/15/18 Referrals No Doctor, Assigned (PCP) Patient Instructions Abdominal Pain, My [facility] Additional Instructions Please return to the emergency department if you have worsening or recurrent symptoms not amenable to at-home treatment. Please call for a follow-up appointment with her primary care physician. Please take your medications as prescribed. If you have other concerns and/or complaints please feel free to also call your primary care physician's office or return the ED for further evaluation, management, and treatment. Please follow-up with your primary care provider as well as her specialist at [facility]. You received narcotic or benzodiazepene medication while in the emergency room today. This is an addictive medication that may cause drowziness as well as constipation. Do not drive, operate heavy machinery, or drink alcohol under the influence of this medication. You have been examined and treated today on an emergency basis only. This is not a substitute for, or an effort to provide, complete comprehensive medical care. It is impossible to recognize and treat all injuries or illnesses in a single emergency department visit. It is therefore important that you follow up closely with [facility], your PCP, and/or your specialist(s). Call as soon as possible for an appointment. Thank you for your time and consideration. I look forward to speaking with you again soon. Please don't hesitate to call us if you have any questions. Problem Qualifiers Primary Impression: Abdominal pain Abdominal location: generalized Qualified Codes: R10.84 - Generalized abdominal pain Additional Impressions: Nausea & vomiting Vomiting type: unspecified Vomiting Intractability: non-intractable Qualified Codes: R11.2 - Nausea with vomiting, unspecified Anemia Anemia type: unspecified type Qualified Codes: D64.9 - Anemia, unspecified
[2018-01-15 18:50] VITALS: BP 123/80; PULSE 88
[2018-01-15] MEDS ORDERED: OXYCODONE IR HOME PACK PO ONE (19:00)
[2018-01-15] MEDS ORDERED: ONDANSETRON HOME PACK 4MG OD TAB PO ONE (19:00)
--- NOTE | 2018-01-16 02:26 | EMERGENCY ROOM VISIT NOTE ---
ED Visit Note This patient was prescribed home packs of OxyIR and Zofran ODT prior to his discharge. Patient stated he was not able to get to the pharmacy or pay for his prescriptions tonight. Please refer to Dr. Dumas's notes for further details of the history, physical and visit.
== END 2018-01-15 19:03 | disposition home or self-care (01) ==
LOC: EDBD 13:41 → C.EDB 13:42
DX: R10.84 Generalized abdominal pain (principal); R11.2 Nausea with vomiting, unspecified; D64.9 Anemia, unspecified; F10.10 Alcohol abuse, uncomplicated; F17.210 Nicotine dependence, cigarettes, uncomplicated; Z79.899 Other long term (current) drug therapy; E83.51 Hypocalcemia; Z93.1 Gastrostomy status; F11.10 Opioid abuse, uncomplicated; I10 Essential (primary) hypertension; Z98.84 Bariatric surgery status; M19.90 Unspecified osteoarthritis, unspecified site; F43.10 Post-traumatic stress disorder, unspecified; Z96.649 Presence of unspecified artificial hip joint; Z96.659 Presence of unspecified artificial knee joint; Z83.3 Family history of diabetes mellitus

== ENCOUNTER → 2018-01-29 | Outpatient (CLI) | payer OTHER ==
[~2018-01-29] MED LIST changes: -ANTICRE6 PO; +ONDA4TAB46 PO
[2018-01-29 13:25] LABS: BASO % 0.5 %; BASO ABS # 0.03 K/uL (0-0.2); EOS % 3.3 %; EOS ABS # 0.19 K/uL (0-0.5); HEMATOCRIT 32.1 % (42-52); HEMOGLOBIN 10.4 g/dL (14.0-18.0); IG# 0.01 K/uL (0.00-0.02); LYMPH % 33.8 %; LYMPH ABS # 1.95 K/uL (1.2-3.4); MEAN CELL VOLUME 90.7 fL (80-100); MEAN CORPUSCULAR HEMOGLOBIN 29.4 pg (25-34); MEAN CORPUSCULAR HGB CONC 32.4 g/dl (32-36); MEAN PLATELET VOLUME 9.1 fL (7.4-10.4); MONO % 6.4 %; MONO ABS # 0.37 K/uL (0.11-0.59); NEUT % 55.8 %; NEUT ABS # 3.22 K/uL (1.4-6.5); PLATELET COUNT 325 K/uL (130-400); RED CELL DISTRIBUTION WIDTH CV 14.9 % (11.5-14.5); RED CELL DISTRIBUTION WIDTH SD 49.7 fL (36.4-46.3); WHITE BLOOD COUNT 5.77 K/uL (4.8-10.8)
[2018-01-29 14:01] LABS: ALBUMIN 2.7 gm/dl (3.4-5.0); ALT/SGPT 17 U/L (12-78); AST/SGOT 14 U/L (15-37); BLOOD UREA NITROGEN 11 mg/dl (7-18); CALCIUM 8.5 mg/dl (8.5-10.1); CARBON DIOXIDE 32 mmol/L (21-32); CREATININE 0.92 mg/dl (0.60-1.40); GLUCOSE 101 mg/dl (70-99); POTASSIUM 3.9 mmol/L (3.5-5.1); SODIUM 142 mmol/L (136-145)
[2018-01-29 14:04] LABS: ALKALINE PHOSPHATASE 314 U/L (45-117); TOTAL PROTEIN 6.7 gm/dl (6.4-8.2)
== END | disposition home or self-care (01) ==
LOC: C.LABBC 11:01
PROVIDERS: ATTEND Family Medicine Adult Medicine
DX: R10.9 Unspecified abdominal pain (principal); I10 Essential (primary) hypertension; Z98.84 Bariatric surgery status

== ENCOUNTER 2018-02-06 01:44 | Emergency (ER) | payer OTHER ==
[~2018-02-06] VITALS: Ht 182.9 cm; Wt 89.2 kg
[2018-02-06 01:48] VITALS: TEMP 37; Ht 182.9 cm; Wt 89.2 kg
[2018-02-06] MEDS ORDERED: HYDROmorphone INJ 1 MG/ML SYR IV STA ×2 (02:09→03:38)
[2018-02-06] MEDS ORDERED: DiphenhydrAMINE HCL 50 MG/ML VIAL IV STA (02:09)
--- NOTE | 2018-02-06 02:09 | EMERGENCY ROOM VISIT NOTE ---
History Report prepared by [place]: Aj Amezcua Under the Supervision of: Dr. Shayla Yeboah D.O. First contact with patient: 01:50 Chief Complaint: ABDOMINAL PAIN Stated Complaint: EXTREME STOMACH PAIN History of Present Illness The patient is a 57 year old male who presents to the Emergency Room with complaints of constant, severe, abdominal pain beginning 1.5 days ago. The patient states he had a cholecystectomy 1.5 months ago. He notes he had a G- tube placed and a drainage tube where his gallbladder used to be. He reports it is not draining very well. The patient notes he has been taking oxycodone at home, and it is not working. He states he has had minimal drainage over the past 24 hours. The patient reports he has been here three times previously, and each time he has been sent to [place]. He notes he last left [place] a week ago. The patient states he had the leak filled and a bigger drainage tube placed. He reports he also developed left flank pain and nausea. The patient notes he has not been able to eat or drink anything because it caused his symptoms to worsen. He states he has also been experiencing more leg swelling. The patient reports he called [facility] yesterday and was told to go to the ER. He notes he waited until today to see if his pain medications would work. The patient denies leg cramping. He notes his brought him to the ED. Source of History: patient Onset: 1.5 days ago Position: abdomen Symptom Intensity: severe Timing: constant Modifying Factors (Worsening): eating, drinking Associated Symptoms: + nausea Note: Associated symptoms: left flank pain, leg swelling Denies: leg cramping Review of Systems See HPI for pertinent positives & negatives. A total of 10 systems reviewed and were otherwise negative. 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 (22) Status post herniorrhaphy (23) Vomiting Surgical Problems: (1) History of gastric bypass (2) History of hip replacement (3) History of knee replacement Family History Diabetes mellitus Heart disease Social History Smoking Status: Current Every Day Smoker Alcohol Use: heavy Drug Use: heroin, other Marital Status: Housing Status: lives with family Occupation Status: disabled Current/Historical Medications Scheduled PRN Acetaminophen (Tylenol), 650 MG PO DIRECTED PRN for Pain or Fever Ondansetron Hcl (Zofran), 4 MG PO Q8 PRN for Nausea Allergies Coded Allergies: No Known Allergies (Verified , 02/06/18) Physical Exam Vital Signs Date Time Temp Pulse Resp B/P (MAP) Pulse Ox O2 Delivery O2 Flow Rate FiO2 02/06/18 04:58 70 16 119/72 99 02/06/18 03:55 63 16 118/76 97 Room Air 02/06/18 03:02 69 16 137/88 99 Room Air 02/06/18 01:48 37.0 73 18 129/84 97 Room Air Physical Exam HEENT: Head - normocephalic and atraumatic Pupils are equal, round, and reactive to light. Extraocular eye muscles are intact, and sclera are anicteric. Nose - moist nasal mucosa without discharge. Mouth - moist buccal mucosa. Oropharynx is nonerythematous and there is no tonsillar exudate or edema noted. Neck: Supple; no JVD, nuchal rigidity, cervical lymphadenopathy. Heart: Regular rate and rhythm. There is a normal S1 and S2 with no murmurs, clicks, or gallops appreciated. Lungs: Clear to auscultation bilaterally with no wheezes, rales, or rhonchi. Abdomen: Soft, diffuse tenderness with palpation, nondistended, with good bowel sounds. There are no palpable pulsatile masses or hepatosplenomegaly. There is no guarding, rigidity, or rebound noted. Some leakage around the G-tube site and percutaneous drain. Extremities: No evidence of cyanosis or clubbing. 2+ pitting edema in the legs bilaterally. There are easily palpable peripheral pulses. Skin: warm and dry with poor turgor. Small areas of skin break down around the G -tube and percutaneous drain. Medical Decision & Procedures ER Provider Diagnostic Interpretation: CT results as stated below per my review and radiologist interpretation: CT ABDOMEN & PELVIS WITH CONTRAST: Comparison January 15 Percutaneous drain in gallbladder fossa again noted. Suspect residual fluid collection unchanged to slightly decreased compared to prior. Anasarca with prominent body wall edema and ascites. Suspect ascites is slightly decreased compared to prior. Suspected atelectasis. The indeterminate stent seen within the distal duodenum is now positioned in the more proximal transverse duodenum. Biliary dilatation persists, perhaps slightly decreased compared to prior. Percutaneous gastrostomy, postoperative changes. Right hip arthroplasty, and other unchanged findings. Radiologist: Jermaine Riggs MD Study ready at 2101 and initial results transmitted at 1179 Laboratory Results 02/06/18 02:00 Red Blood Count 3.78, Mean Corpuscular Volume 88.4, Mean Corpuscular Hemoglobin 29.4, Mean Corpuscular Hemoglobin Concent 33.2, Mean Platelet Volume 8.2 02/06/18 02:00 Test 02/06/18 02:00 White Blood Count 6.02 K/uL (4.8-10.8) Red Blood Count 3.78 M/uL (4.7-6.1) Hemoglobin 11.1 g/dL (14.0-18.0) Hematocrit 33.4 % (42-52) Mean Corpuscular Volume 88.4 fL (80-100) Mean Corpuscular Hemoglobin 29.4 pg (25-34) Mean Corpuscular Hemoglobin Concent 33.2 g/dl (32-36) Platelet Count 368 K/uL (130-400) Mean Platelet Volume 8.2 fL (7.4-10.4) RDW Standard Deviation 48.6 fL (36.4-46.3) RDW Coefficient of Variation 14.9 % (11.5-14.5) Neutrophils % (Manual) 44.0 % Lymphocytes % (Manual) 35.0 % Monocytes % (Manual) 4.0 % Eosinophils % (Manual) 2.0 % Neutrophils # (Manual) 2.65 K/uL (1.4-6.5) Total Absolute Neutrophils 2.65 K/uL (1.4-6.5) Lymphocytes # (Manual) 2.11 K/uL (1.2-3.4) Total Absolute Lymphocytes 3.01 K/uL (1.2-3.4) Monocytes # (Manual) 0.24 K/uL (0.11-0.59) Eosinophils # (Manual) 0.12 K/uL (0-0.5) Percent Large Granular Lymphocytes 15.0 % Absolute Large Granular Lymphocytes 0.90 K/uL Red Blood Cell Morphology Unremarkable Anion Gap 6.0 mmol/L (3-11) Est Creatinine Clear Calc Drug Dose 95.4 ml/min Estimated GFR () 102.7 Estimated GFR (Non- 88.6 BUN/Creatinine Ratio 9.9 (10-20) Calcium Level 8.6 mg/dl (8.5-10.1) Total Bilirubin 0.3 mg/dl (0.2-1) Direct Bilirubin 0.1 mg/dl (0-0.2) Aspartate Amino Transf (AST/SGOT) 14 U/L (15-37) Alanine Aminotransferase (ALT/SGPT) 14 U/L (12-78) Alkaline Phosphatase 242 U/L (45-117) Total Protein 7.5 gm/dl (6.4-8.2) Albumin 2.9 gm/dl (3.4-5.0) Lipase 161 U/L (73-393) Laboratory results per my review. Medications Administered Medications (Trade) Dose Ordered Sig/Lm Route Start Time Stop Time Status Last Admin Dose Admin Diphenhydramine HCl (Benadryl Inj) 25 mg NOW STAT IV 02/06/18 02:09 02/06/18 02:11 DC 02/06/18 02:15 25 MG Hydromorphone HCl (Dilaudid Inj) 1 mg NOW STAT IV 02/06/18 02:09 02/06/18 02:11 DC 02/06/18 02:17 1 MG Hydromorphone HCl (Dilaudid Inj) 1 mg NOW STAT IV 02/06/18 03:38 02/06/18 03:39 DC 02/06/18 03:54 1 MG Ondansetron HCl (Zofran Inj) 4 mg NOW STAT IV 02/06/18 03:38 02/06/18 03:39 DC 02/06/18 03:54 4 MG Procedure 0209: Ordered Dilaudid 1mg IV, Benadryl 25mg IV 0338: Ordered Zofran 4mg IV, Dilaudid 1mg IV ED Course 0157: The patient was evaluated in room A04B. A complete history and physical examination were performed. Nursing notes and previous electronic medical records were reviewed. IV lock was established and labs were drawn as above. 0209: Ordered Dilaudid 1mg IV, Benadryl 25mg IV. The patient will go for CT scan of the abdomen/pelvis. 0338: Ordered Zofran 4mg IV, Dilaudid 1mg IV 0401: I reevaluated the patient. He states he had an appointment on Sunday at 1200 with his surgeon and missed it because his family would not drive him to [place]. He notes the pain medication is not working, and his pain is a /10. 0421: I discussed the patient's case with Dr. Hennessy, [facility]. We reviewed the results of the CT scan and the positioning of the stent. He suggested giving the patient skin barrier cream for his skin break down. He recommended that the patient make every effort to make it to the surgery clinic in the next day or so. 0438: Upon reevaluation, the patient is eating and hopes he can make it to the surgery clinic by Sunday. He notes he is still in pain. The patient was given skin barrier cream. I discussed findings and results with him. He verbalized agreement of the treatment plan. The patient was discharged home. Medical Decision The patient is a 57 year old male who presents to the ED with severe abdominal pain. Differential diagnosis includes intraabdominal fluid collection, exacerbation of chronic abdominal pain, SBP. Lab results show: no leukocytosis, hemoglobin of 11.1, lipase of 161, normal glucose, normal LFTs except alk phos of 242, normal renal function. This is a 57-year-old male patient with a long-standing history of abdominal surgeries and procedures. Over the past 6 weeks, the patient has had multiple visits to our emergency department and transfer to [facility] for admission. The patient states that his abdominal pain is diffuse and it has escalated over the past [address] scan shows decreased amount of ascites and abdominal wall edema. The stent has migrated in the duodenum. The drain is in the gallbladder fossa with minimal fluid. I reviewed all of these findings with the patient. He suggested I discussed the case with the staff at [facility]. I spoke with Dr. Hennessy and he recommended the patient follow-up in their clinic as an outpatient. The patient told me that he thought he could get a ride there on Sunday. He was told return to the emergency department if he developed any worsening pain or fevers. [place] Drug Monitoring Program Search Results: patient reviewed within database, see additional documentation Drug Monitoring Findings: Dr. Hennessy prescribed a tapering dose of Oxycodone, and the patient took all of them in [address] Vásquez prescribed 50 more of the 10mg Oxycodone on and he has ran out of those too. Medication Reconcilliation Current Medication List: was personally reviewed by me Blood Pressure Screening Patient's blood pressure: Normal blood pressure Blood pressure disposition: Did not require urgent referral Consults Time Called: 413 Consulting Physician: Dr. Hennessy, [facility] Returned Call: [phone] I discussed the patient's case with Dr. Hennessy, [facility]. He suggested giving the patient skin barrier cream for his skin break down. Impression Primary Impression: Diffuse abdominal pain Scribe Attestation The scribe's documentation has been prepared under my direction and personally reviewed by me in its entirety. I confirm that the note above accurately reflects all work, treatment, procedures, and medical decision making performed by me. Departure Information Dispostion Home / Self-Care Referrals Meli Vásquez M.D. (PCP) Forms Call Back Authorization, HOME CARE DOCUMENTATION FORM, IMPORTANT VISIT INFORMATION Patient Instructions My [facility] Additional Instructions Use skin barrier cream on abdomen wounds Follow up with Dr. Hennessy or Dr. Tadeo at [facility]. Call the clinic this AM. Return here if you develop a fever or start vomiting or if pain worsens.
[2018-02-06 02:25] LABS: HEMATOCRIT 33.4 % (42-52); HEMOGLOBIN 11.1 g/dL (14.0-18.0); MEAN CELL VOLUME 88.4 fL (80-100); MEAN CORPUSCULAR HEMOGLOBIN 29.4 pg (25-34); MEAN CORPUSCULAR HGB CONC 33.2 g/dl (32-36); MEAN PLATELET VOLUME 8.2 fL (7.4-10.4); PLATELET COUNT 368 K/uL (130-400); RED CELL DISTRIBUTION WIDTH CV 14.9 % (11.5-14.5); RED CELL DISTRIBUTION WIDTH SD 48.6 fL (36.4-46.3); WHITE BLOOD COUNT 6.02 K/uL (4.8-10.8)
[2018-02-06] MEDS ORDERED: ONDA4TAB65 PO (02:30)
[2018-02-06] MEDS ORDERED: ACET-1311 PO (02:30)
[2018-02-06 02:34] LABS: ALBUMIN 2.9 gm/dl (3.4-5.0); CALCIUM 8.6 mg/dl (8.5-10.1); CREATININE 0.96 mg/dl (0.60-1.40); POTASSIUM 3.9 mmol/L (3.5-5.1)
[2018-02-06 02:37] LABS: TOTAL PROTEIN 7.5 gm/dl (6.4-8.2)
[2018-02-06] MEDS ORDERED: ONDANSETRON INJ 2 MG/ML 2 ML VIAL IV STA (03:38)
[2018-02-06] MEDS ORDERED: OPTIRAY 320 IV PRN (03:45)
[2018-02-06 04:58] VITALS: BP 119/72; PULSE 70; O2SAT 99
--- NOTE | 2018-02-06 08:06 | DIAGNOSTIC IMAGING REPORT ---
ABD/PELVIS IV CONTRAST ONLY CLINICAL HISTORY: 57 years-old Male presenting with eval percutaneous drain and compare to previous. TECHNIQUE: Multidetector CT of the abdomen and pelvis was performed after the administration of intravenous contrast. IV contrast: 93 mL of Optiray 320. A dose lowering technique was used consistent with the principles of ALARA (as low as reasonably achievable). COMPARISON: 01/15/2018. CT DOSE (mGy.cm): The estimated cumulative dose is 801.17 mGycm. FINDINGS: Handkerchief Cutter topogram: Pigtail drain projects over the right abdomen. A plastic biliary stent is in place. Postsurgical changes of total right hip arthroplasty. Lung bases: Minimal basilar opacities, likely atelectasis. Normal heart size. Resolution of trace pleural effusions. No pericardial effusion. Liver: Normal morphology. Heterogeneity of enhancement in the right hepatic dome without focal lesion or collection. Perihepatic fluid. No subcapsular fluid. Patent hepatic vasculature. Biliary: Persistent diffuse intrahepatic ductal dilatation though this has slightly decreased in severity from prior, now mild to moderate, previously moderate. A common bile duct stent is in place, terminating at the major papilla. The previously noted displacement has been removed. Gallbladder surgically absent. A pigtail drain is positioned in the gallbladder fossa, which again contains minimal fluid. Pancreas: Persistent moderate diffuse pancreatic ductal dilatation, unchanged. Parenchyma is normal. Spleen: Normal. Adrenal glands: Normal. Kidneys and ureters: Parapelvic cysts noted at the upper pole of the left kidney. Renal parenchyma otherwise normal. No nephrolithiasis. No hydronephrosis. Ureters are somewhat poorly assessed given diffuse fatty infiltration secondary to anasarca. Bladder: Circumferential bladder wall thickening. Pelvic organs: Prostate and seminal vesicles normal. Bowel: Postsurgical changes of antecolic Khloe-en-Y gastric bypass. A gastrostomy tube or jejunostomy tube is noted in the epigastrium. Anastomotic suture lines also evident in the left abdomen. No bowel obstruction. The appendix is normal in diameter and contains high density material, possibly prior oral contrast. Peritoneal cavity: Trace abdominal pelvic ascites, similar to prior. No free intraperitoneal gas. Diffuse mesenteric infiltration. Lymph nodes: Evaluation for lymphadenopathy is degraded by diffuse fat infiltration. Allowing for this, no gross evidence of pathologically enlarged lymph nodes in the abdomen or pelvis. Vasculature: Atherosclerosis of the normal caliber abdominal aorta. IVC patent. Abdominal wall: Diffuse body wall edema, stable to slightly decreased from prior. Fat-containing right inguinal hernia. Musculoskeletal: Degenerative changes of the spine. Postsurgical changes of right hip arthroplasty. Degenerative changes of the pubic symphysis. IMPRESSION: 1. Trace fluid at the terminus of the pigtail catheter, which remains in the gallbladder fossa. 2. Interval replacement of the common bile duct stent with slight interval decrease in diffuse mild to moderate intrahepatic biliary ductal dilatation. 3. Heterogeneity of liver enhancement may relate to volume overload. No focal lesion or abscess. 4. Postsurgical changes of antecolic Khloe-en-Y gastric bypass with percutaneous gastrostomy or jejunostomy. 5. Persistent volume overload though the volume of ascites may be slightly decreased from prior. 6. Persistent circumference of bladder wall thickening, which could suggest cystitis or chronic bladder outlet obstruction. Correlate with urinalysis. This is unchanged. Electronically signed by: Thom Mistry M.D. 02/06/2018 8:05 AM Dictated Date/Time: 02/06/2018 6:52 AM
== END 2018-02-06 05:00 | disposition home or self-care (01) ==
LOC: C.EDB 01:45 → C.EDA 05:00
DX: R10.84 Generalized abdominal pain (principal); Z90.49 Acquired absence of other specified parts of digestive tract; I10 Essential (primary) hypertension; F43.10 Post-traumatic stress disorder, unspecified; Z96.659 Presence of unspecified artificial knee joint; Z96.649 Presence of unspecified artificial hip joint; Z98.84 Bariatric surgery status; Z83.3 Family history of diabetes mellitus; F17.210 Nicotine dependence, cigarettes, uncomplicated; F11.90 Opioid use, unspecified, uncomplicated

== ENCOUNTER 2018-05-07 12:18 | Emergency (ER) | payer OTHER ==
[~2018-05-07] VITALS: Ht 182.9 cm; Wt 82.0 kg
[2018-05-07 12:25] VITALS: TEMP 36.7; Ht 182.9 cm; Wt 82.0 kg
[2018-05-07] MEDS ORDERED: HYDROmorphone INJ 1 MG/ML SYR IV STA (13:09)
[2018-05-07] MEDS ORDERED: ONDANSETRON INJ 2 MG/ML 2 ML VIAL IV STA (13:09)
[2018-05-07] MEDS ORDERED: DiphenhydrAMINE HCL 50 MG/ML VIAL IV STA ×2 (13:09→18:57)
[2018-05-07] MEDS ORDERED: SODIUM CHLORIDE 0.9% 1000ML 1,000 ML IV STA (13:09)
[2018-05-07 14:14] LABS: BASO % 0.2 %; BASO ABS # 0.01 K/uL (0-0.2); EOS % 0.3 %; EOS ABS # 0.02 K/uL (0-0.5); HEMOGLOBIN 11.9 g/dL (14.0-18.0); IG# 0.02 K/uL (0.00-0.02); LYMPH % 20.2 %; LYMPH ABS # 1.23 K/uL (1.2-3.4); MEAN CELL VOLUME 87.6 fL (80-100); MEAN CORPUSCULAR HGB CONC 33.1 g/dl (32-36); MEAN PLATELET VOLUME 10.5 fL (7.4-10.4); MONO % 3.4 %; MONO ABS # 0.21 K/uL (0.11-0.59); NEUT % 75.6 %; PLATELET COUNT 198 K/uL (130-400); RED CELL DISTRIBUTION WIDTH CV 15.8 % (11.5-14.5); RED CELL DISTRIBUTION WIDTH SD 50.9 fL (36.4-46.3); WHITE BLOOD COUNT 6.09 K/uL (4.8-10.8)
[2018-05-07] MEDS ORDERED: OPTIRAY 320 IV PRN (14:45)
[2018-05-07 14:55] LABS: ALBUMIN 2.4 gm/dl (3.4-5.0); CALCIUM 8.8 mg/dl (8.5-10.1); CREATININE 0.73 mg/dl (0.60-1.40); POTASSIUM 3.9 mmol/L (3.5-5.1)
--- NOTE | 2018-05-07 15:27 | DIAGNOSTIC IMAGING REPORT ---
ABD/PELVIS IV CONTRAST ONLY CT DOSE: 378.01 mGy.cm HISTORY: Pain pain surgical site and R inguinal areas TECHNIQUE: Multiaxial CT images of the abdomen and pelvis were performed following the use of intravenous contrast. A dose lowering technique was utilized adhering to the principles of ALARA. COMPARISON STUDY: 02/06/2018 FINDINGS: Lung bases remain clear. Unchanging prominence of the biliary ductal system. A biliary ductal stent appears to be in the duodenal sweep. Gastrostomy tube remains in the distal stomach. Interval development and/or slightly progressive slight progression of abdominal and pelvic ascites. Volume remains relatively low. Moderate thickening of the bladder wall. Operative changes of a prior gastrostomy is again noted. Bowel pattern overall is nonobstructive. Mild body wall anasarca unchanged. Kidneys enhance uniformly. No evidence for hydronephrosis. IMPRESSION: 1. Findings of a slightly progressive ascites within the abdomen and pelvis compared to the prior study. 2. Persistent prominence of the biliary ductal system with a common duct stent. A be within the third portion of duodenal sweep. 4. Operative changes consistent with a prior gastric bypass type procedure and gastrostomy. 5. Stable body wall anasarca. 6. Unchanged components of bladder wall thickening. The above report was generated using voice recognition software. It may contain grammatical, syntax or spelling errors. Electronically signed by: Efren Lizarraga M.D. 05/07/2018 3:26 PM Dictated Date/Time: 05/07/2018 3:18 PM
[2018-05-07] MEDS ORDERED: HYDROmorphone INJ 0.5 MG/0.5 ML SYR IV STA ×2 (17:18→20:50)
--- NOTE | 2018-05-07 18:54 | EMERGENCY ROOM VISIT NOTE ---
ED Visit Note First contact with patient: 12:48 Chief Complaint: Abdominal pain. History of Present Illness: Mr. Ramon is a 57 year-old black male who ambulates into the ED complaining of diffuse abdominal and inguinal pain. Historically patient reports he is status post gastric bypass, G-tube placement , biliary duct stent placement and inguinal hernia repair. Patient reports he has been having ongoing severe abdominal pain for the last 2 weeks. He reports today he was at a local convenience store and started having severe pain and vomiting and was brought to the hospital by private vehicle of a person none known to him. Currently patient is complaining of a sharp stabbing pain throughout the upper abdomen, a burning pain in the area inferior to his jeep to placement and a burning pain in the medial aspect of the right lower quadrant and inguinal area. He rates his discomfort 10/10. His pain is nonradiating. His pain worsens with palpation of the abdomen. He has not identified any alleviating factors related to the pain. Associated with his pain he reports he has been having severe chills but no braydon fevers, nausea but no vomiting, decreased appetite and this morning he had multiple episodes of light brown watery stools. Initially patient reports he was not taken any medications today for pain and when I questioned him further and reviewed his state database report he reports he was given Percocet for pain prescribed by a doctor in [facility] on April 30; he reports he is already use all of these medications. On further review of systems when it was observed that his LFTs were elevated I did query him about acetaminophen and alcohol use; he frankly denied any acetaminophen use and does report over the last 2 weeks he said 1 or 2 beers for alcohol use. Patient denies sweats, skin eruptions, skin color changes, upper respiratory tract symptoms, shortness of breath, chest pain, hematemesis, constipation, rectal bleeding, melena, urinary symptoms, hematuria, back/flank pain. Review of Systems: As noted above in history of present illness. All body systems were reviewed and found to be negative as noted above. Past Medical History: As previously noted and (1) Alcohol abuse (2) Alcohol withdrawal delirium (3) Altered mental status (4) Benign hypertension (5) Bypass gastroenterostomy (6) Chronic back pain (7) Contusion of right hip (8) Delirium tremens (9) Fall (10) Gastric ulcer (11) Head injury consultation (12) Heroin overdose (13) Intractable abdominal pain (14) Intractable abdominal pain (15) Lumbar sprain (16) Melena (17) Opioid withdrawal (18) Osteoarthritis (19) Proctitis (20) PTSD (post-traumatic stress disorder) (21) Replacement of total knee joint (22) Status post herniorrhaphy (23) Vomiting Surgical Problems: (1) History of gastric bypass (2) History of hip replacement (3) History of knee replacement Current Medications: Zofran. Allergies to Medications: Patient denies. Social History: Patient is not currently employed; he admits to tobacco and alcohol use. Physical Examination: Vital Signs: Date Time Temp Pulse Resp B/P (MAP) Pulse Ox O2 Delivery O2 Flow Rate FiO2 05/07/18 15:45 60 150/85 98 Room Air 05/07/18 14:26 56 18 154/81 100 Room Air 05/07/18 12:25 36.7 52 18 162/83 100 Room Air GENERAL: 57-year-old male in mild distress due to pain, nontoxic-appearing, afebrile and hemodynamically stable. NEUROLOGICAL: Awake, alert and oriented to person, place and time. Answering questions appropriately and following commands. Good hand eye coordination. SKIN: Warm, dry and pink. HEENT: Atraumatic and normocephalic. PERRLA. Sclera white and conjunctiva pink. Oral cavity moist and pink. Pharynx is nonerythematous or edematous. Speech normal. No lymphadenopathy. Trachea midline. No jugular venous distention. BACK: No tenderness over the bony spine. No CVA tenderness. THORAX: Lungs sounds are clear to auscultation and equal bilaterally with symmetrical chest wall. No wheezing, rales or rhonchi. HEART: Regular rate and rhythm. No gallops, rubs or murmurs are appreciated. ABDOMEN: Flat and soft with diffuse tenderness throughout with prominence in the bilateral upper quadrants, and the area inferior to his G-tube placement and the medial aspect of the right lower quadrant. Positive bowel sounds in all quadrants. No guarding, rigidity or organomegaly. GENITAL: No external lesions. Penis is a mature, and circumcised. No tenderness. Scrotal area shows mild tenderness on the right scrotal sac without any erythema or edema. No testicular tenderness. No palpable masses or hernias. Left scrotal sac and contents are nontender. No local lymphadenopathy. EXTREMITIES: Moves all extremities well on command and with purpose. All distal neurovascular statuses are intact and equal bilaterally. ED Course: Patient is assessed as noted above. Patient's medication list was reviewed. Laboratory Testing: Test 05/07/18 13:45 05/07/18 15:06 Range/Units White Blood Count 6.09 4.8-10.8 K/uL Red Blood Count 4.11 4.7-6.1 M/uL Hemoglobin 11.9 14.0-18.0 g/dL Hematocrit 36.0 42-52 % Mean Corpuscular Volume 87.6 80-100 fL Mean Corpuscular Hemoglobin 29.0 25-34 pg Mean Corpuscular Hemoglobin Concent 33.1 32-36 g/dl Platelet Count 198 130-400 K/uL Mean Platelet Volume 10.5 7.4-10.4 fL Neutrophils (%) (Auto) 75.6 % Lymphocytes (%) (Auto) 20.2 % Monocytes (%) (Auto) 3.4 % Eosinophils (%) (Auto) 0.3 % Basophils (%) (Auto) 0.2 % Neutrophils # (Auto) 4.60 1.4-6.5 K/uL Lymphocytes # (Auto) 1.23 1.2-3.4 K/uL Monocytes # (Auto) 0.21 0.11-0.59 K/uL Eosinophils # (Auto) 0.02 0-0.5 K/uL Basophils # (Auto) 0.01 0-0.2 K/uL RDW Standard Deviation 50.9 36.4-46.3 fL RDW Coefficient of Variation 15.8 11.5-14.5 % Immature Granulocyte % (Auto) 0.3 % Immature Granulocyte # (Auto) 0.02 0.00-0.02 K/uL Sodium Level 139 136-145 mmol/L Potassium Level 3.9 3.5-5.1 mmol/L Chloride Level 105 98-107 mmol/L Carbon Dioxide Level 27 21-32 mmol/L Anion Gap 7.0 3-11 mmol/L Blood Urea Nitrogen 6 7-18 mg/dl Creatinine 0.73 0.60-1.40 mg/dl Est Creatinine Clear Calc Drug Dose 125.5 ml/min Estimated GFR () 121.0 Estimated GFR (Non- 104.4 BUN/Creatinine Ratio 8.4 10-20 Random Glucose 82 70-99 mg/dl Calcium Level 8.8 8.5-10.1 mg/dl Total Bilirubin 0.3 0.2-1 mg/dl Direct Bilirubin 0-0.2 mg/dl Aspartate Amino Transf (AST/SGOT) 255 15-37 U/L Alanine Aminotransferase (ALT/SGPT) 115 12-78 U/L Alkaline Phosphatase 1195 45-117 U/L Total Protein 7.0 6.4-8.2 gm/dl Albumin 2.4 3.4-5.0 gm/dl Lipase 98 73-393 U/L Chemistry Specimen Hemolysis Acetaminophen Level < 2 10-30 ug/ml Urine Color YELLOW Urine Appearance CLEAR CLEAR Urine pH 8.0 4.5-7.5 Urine Specific [place] 1.017 1.000-1.030 Urine Protein NEG NEG Urine Glucose (UA) NEG NEG Urine Ketones NEG NEG Urine Occult Blood NEG NEG Urine Nitrite NEG NEG Urine Bilirubin NEG NEG Urine Urobilinogen NEG NEG Urine Leukocyte Esterase NEG NEG IV Contrast Abdominal/Pelvic CT: Patient was hydrated with normal saline and initially received 4 mg of Zofran IV for nausea, 1 mg of Dilaudid IV for pain and 25 mg of Benadryl IV for previous itchy skin after receiving Dilaudid. Patient was reassessed multiple times during his stay in the emergency department. Patient's case was reviewed with Dr. Trimble; she independently assessed the patient we agreed on diagnostic approach, treatment, disposition and plan. Patient's case was consulted with Dr. Reina, gastroenterology; she recommended transfer to [facility] for definitive care and treatment. Patient's case was consulted with Dr. Canchola, [facility] minimally invasive surgery; he agreed to see the patient in follow-up and for tube removal on May 16 at the outpatient clinic at [facility]; time to be defined. Patient's case was consulted with Dr. Patino, hospitalist [facility]; patient was accepted for transfer. Patient received a clear liquid diet. On reassessment patient received an additional 0.5 mg of Dilaudid IV. Transfer patient work was completed with Dr. Trimble. Patient's case was reviewed with Case Management; they are assisting with finding transport to [facility]. Patient's case was also consulted with the [facility] hospitalist; it was felt pending discharge and the possibility of finding transport he may need to be admitted for observation. Patient's care was transferred to Dr. Trimble until final transport. Clinical Impression: Retractable abdominal pain. Elevated LFTs. Decision-Making: Initially my differential diagnosis I considered bowel obstruction, hepatitis, recurrence of cholecystitis, pancreatitis, and other causes. Disposition and Plan: Please see Dr. Trimble's notes and orders for final disposition and plan. I have personally spent greater than 60 minutes of critical care time in the direct management of this patient. This includes bedside care, interpretation of diagnostic studies, and testing, discussion with consultants, patient, and family members, and other required patient management activities. This 60 minutes is in excess of all separately billable procedures.
[2018-05-07] MEDS ORDERED: KETOROLAC TROMETHAMINE 30 MG/ML VIAL IV STA (20:27)
--- NOTE | 2018-05-07 20:51 | EMERGENCY ROOM VISIT NOTE ---
ED Visit Note First contact with patient: 15:00 Case discussed with physician assistant finance manager after his evaluation and treatment. Patient with extensive and complicated medical history including prior gastric bypass, G-tube, biliary stent, chronic pain. Patient presents here again with recurrent pain and no transportation to [place] to follow-up with his GI specialist on there. It was noted on patient's evaluation by the PA including labs and imaging that patient also had markedly elevated LFTs compared to prior. Patient did not wish to be admitted here. The PA did attempt to contact our GI specialist here and had no callback. He then contacted [place] to discuss the patient for possible transfer. Patient here was exhibiting drug- seeking behavior and does have a history of methadone use. Patient had most recently been on Percocet. Patient was given IV pain medication well our evaluation was ongoing and prior to transfer. I did inform him that we would not be continuously giving him IV pain medication as this could be contributing to his problems. Patient requesting removal of his G-tube and biliary stent. I informed him that he should be removed by his GI specialist or surgical team that originally placed it. Patient again requesting to be transferred to [place]. Physician assistant finance manager made arrangements and patient was accepted in transfer. There was some delay securing transportation for the patient but he was ultimately transported via ambulance to [place]. Patient hemodynamically stable throughout. Patient was asking to eat, was allowed clear sips.
[2018-05-07 21:04] VITALS: BP 142/71; PULSE 56; O2SAT 99
== END 2018-05-07 21:05 | disposition short-term general hospital (02) ==
LOC: C.EDB 12:19
DX: R10.84 Generalized abdominal pain (principal); R79.89 Other specified abnormal findings of blood chemistry; Z98.84 Bariatric surgery status; G89.29 Other chronic pain; Z72.89 Other problems related to lifestyle; Z76.5 Malingerer [conscious simulation]; Z93.1 Gastrostomy status; I10 Essential (primary) hypertension; F11.10 Opioid abuse, uncomplicated; M19.90 Unspecified osteoarthritis, unspecified site; F43.10 Post-traumatic stress disorder, unspecified; Z96.649 Presence of unspecified artificial hip joint; Z96.659 Presence of unspecified artificial knee joint; Z72.0 Tobacco use

== ENCOUNTER → 2018-05-07 | Outpatient (CLI) | payer OTHER ==
[~2018-05-07] MED LIST changes: +ACET-1311 PO; -ONDA4TAB46 PO; +ONDA4TAB65 PO; -OXYC1TAB3 PO
== END | disposition home or self-care (01) ==
LOC: C.LABBC 11:05
PROVIDERS: ATTEND Family Medicine Adult Medicine
DX: Z79.899 Other long term (current) drug therapy (principal)

== ENCOUNTER 2018-09-10 05:59 | Inpatient (IN) ==
--- NOTE | 2018-09-10 06:57 | Emergency Department Note ---
Entered by Ward Teresa acting as a scribe for Francois Perez DO History of Present Illness General Chief complaint: Knee Pain/Injury Stated complaint: LEFT KNEE PAIN S/P SURGERY Time Seen by Provider: 09/10/18 06:31 Source: patient History of Present Illness Onset (ago): hour(s) (prior to arrival) Location: lower extremity (left knee) Severity: severe Pain Consistency: + other (worsening) Maximum Pain Intensity: 10 Associated symptoms: + nausea/vomiting (positive for nausea, negative for vomiting) and + other (abdominal pain, back pain, bowel incontinence); no cough The patient is a 58 year old M who presents to the Emergency Room with complaints of worsening left knee starting prior to arrival. 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 He adds that he has had many revision surgeries to fix his knee replacement. He states that four days ago, [place] removed his infected knee replacement and put concrete in. He states that he left the [facility] against medical advice lasdt night and was brought here to the [facility] ED because his family lives here at [facility]. He notes that he is feeling nauseated, distended abdominal pain, back pain, and bowel incontinence. He adds that he had pneumonia previously. He notes that he cannot feel his legs bilaterally since being admitted to [facility] for his infection. He denies vomiting and coughing. He states that he has a history of high blood pressure, borderline diabetes, foot surgery, and gastric bypass surgery. 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 He notes that he was in custodial a long time ago. Home Medications Home Medications Medication Instructions Recorded Confirmed Type Unobtainable 09/10/18 09/10/18 History Allergies Allergy/AdvReac Type Severity Reaction Status Date / Time No Known Allergies Allergy Verified 09/10/18 06:28 Past Med/Surg History Medical History PTSD (post-traumatic stress disorder) (Chronic) Heroin overdose (Chronic) Borderline diabetes High blood pressure Surgical History Hx of foot surgery Social History Feels Safe at Home: Yes Smoking Status: Current every day smoker Review of Systems See HPI for pertinent positives & negatives. and A total of 10 systems reviewed and were otherwise negative Physical Exam Vital Signs Vital Signs - 24 hr 09/10/18 06:08 09/10/18 06:31 09/10/18 06:59 Sepsis Recent Fever Within 48 Hours No Sepsis New/Unexplained Change in Mental Status No Sepsis Action Taken by Nursing No Action Required Pulse Rate 88 Pulse Rate [Apical] 85 Pulse Rhythm Regular Pulse Rhythm [Apical] Regular Pulse Strength Normal Pulse Strength [Apical] Normal Respiratory Rate 19 19 Respiratory Effort / Characteristics Non-Labored Spontaneous Non-Labored Spontaneous Respiratory Depth Normal Normal Respiratory Pattern Regular Regular Blood Pressure 141/94 H Blood Pressure [Right Arm] 154/88 H Blood Pressure Mean 109 Blood Pressure Mean [Right Arm] 110 Blood Pressure Position Lying Blood Pressure Position [Right Arm] Lying Pulse Oximetry 93 96 94 Oxygen Delivery Method Room Air Room Air Room Air 09/10/18 07:57 09/10/18 08:46 09/10/18 10:26 Sepsis Recent Fever Within 48 Hours Sepsis New/Unexplained Change in Mental Status Sepsis Action Taken by Nursing Pulse Rate Pulse Rate [Apical] 88 89 93 H Pulse Rhythm Pulse Rhythm [Apical] Pulse Strength Pulse Strength [Apical] Respiratory Rate 20 18 20 Respiratory Effort / Characteristics Respiratory Depth Respiratory Pattern Blood Pressure Blood Pressure [Right Arm] 143/83 H 148/89 H 149/87 H Blood Pressure Mean Blood Pressure Mean [Right Arm] 103 108 107 Blood Pressure Position Blood Pressure Position [Right Arm] Pulse Oximetry 94 96 98 Oxygen Delivery Method Room Air Room Air Room Air 09/10/18 10:54 09/10/18 11:11 09/10/18 12:29 Sepsis Recent Fever Within 48 Hours Sepsis New/Unexplained Change in Mental Status Sepsis Action Taken by Nursing Pulse Rate Pulse Rate [Apical] 91 H 86 93 H Pulse Rhythm Pulse Rhythm [Apical] Regular Pulse Strength Pulse Strength [Apical] Normal Respiratory Rate 18 18 18 Respiratory Effort / Characteristics Non-Labored Spontaneous Respiratory Depth Normal Respiratory Pattern Regular Blood Pressure Blood Pressure [Right Arm] 140/85 122/80 157/87 H Blood Pressure Mean Blood Pressure Mean [Right Arm] 103 94 110 Blood Pressure Position Blood Pressure Position [Right Arm] Lying Pulse Oximetry 100 96 94 Oxygen Delivery Method Room Air Room Air Room Air 09/10/18 15:42 Sepsis Recent Fever Within 48 Hours Sepsis New/Unexplained Change in Mental Status Sepsis Action Taken by Nursing Pulse Rate Pulse Rate [Apical] 99 H Pulse Rhythm Pulse Rhythm [Apical] Pulse Strength Pulse Strength [Apical] Respiratory Rate 20 Respiratory Effort / Characteristics Respiratory Depth Respiratory Pattern Blood Pressure Blood Pressure [Right Arm] 145/93 H Blood Pressure Mean Blood Pressure Mean [Right Arm] 110 Blood Pressure Position Blood Pressure Position [Right Arm] Pulse Oximetry 95 Oxygen Delivery Method Room Air GENERAL: Patient is awake and alert. He is lying in the bed but is very resistant to movement. There is a smell of urine. EYES: The conjunctivae are clear. The pupils are round and reactive. EARS, NOSE, MOUTH AND THROAT: The nose is without any evidence of any deformity. Mucous membranes are moist tongue is midline NECK: The neck is nontender and supple. RESPIRATORY: Shallow respirations were noted. There are diminished breath sounds noted throughout right greater than left. There are rales noted at the right base. CARDIOVASCULAR: Regular rate and rhythm noted there no murmurs rubs or gallops normal S1 normal S2 GASTROINTESTINAL: The abdomen is mildly distended but soft. There is no specific tenderness guarding or rigidity. MUSCULOSKELETAL/EXTREMITIES: There is a surgical dressing in place over the left knee. The dressing appears fresh and is not stained. There is a significant effusion to the left knee with warmth to the left knee compared to the right. Patient is resistant to any range of motion due to pain. SKIN: There is no obvious evidence of any rash. There is bilateral lower extremity edema appreciated. Pulses are symmetric. NEUROLOGIC: Patient is awake alert and oriented x3. Strength is diminished in both lower extremities however patient is very resistant to movement of his lower extremities. It is difficult to ascertain if this is secondary to pain or weakness. Course 0631: Past medical records reviewed. The patient was evaluated in room B10, and a complete history and physical examination were performed. 0817: I re-evaluated the patient and went to see if the nurse put in a Diop. 1650: I reviewed the patient's case with Dr. Estella Loja PA-C [facility] Hospitalist. She will evaluate the patient for further management. Consultations Consultation #1: I reviewed the patient's case with Dr. Richard Loja PA-C [facility] Hospitalist. She will evaluate the patient for further management if an MRI of the patient can be obtained. Time: 12:15 Administered Medications Morphine Sulfate (Morphine Sulfate) 6 mg IV Q30M PRN PRN Reason: Pain Stop: 09/24/18 10:59 Last Admin: 09/10/18 13:06 Dose: 6 mg Admin: 09/10/18 12:35 Dose: 6 mg Admin: 09/10/18 11:11 Dose: 6 mg Discontinued Medications Piperacillin Sod/Tazobactam Sod (Zosyn) 4.5 gm in 120 mls @ 240 mls/hr IV NOW ONE Stop: 09/10/18 09:12 Last Infusion: 09/10/18 09:20 Dose: 0 mls/hr Admin: 09/10/18 08:48 Dose: 240 mls/hr Vancomycin HCl 2,000 mg/ (Sodium Chloride) 540 mls @ 200 mls/hr IV NOW ONE Stop: 09/10/18 11:38 Last Infusion: 09/10/18 10:55 Dose: Admin: 09/10/18 09:29 Dose: 200 mls/hr Lorazepam (Ativan) 1 mg in 2 mls @ 2 mls/min IV NOW STA Stop: 09/10/18 12:17 Last Admin: 09/10/18 12:35 Dose: 2 mls/min Lorazepam (Ativan) 2 mg in 4 mls @ 4 mls/min IV NOW STA Stop: 09/10/18 12:57 Last Admin: 09/10/18 13:06 Dose: 4 mls/min Medical Decision Making Differential Diagnosis Differential diagnosis: Etiologies such as viral syndrome, otitis, pharyngitis, pneumonia, influenza, meningitis, urinary tract infection, septic arthritis, soft tissue infectious process, intra-abdominal process, sepsis, bacteremia, as well as others were entertained. Medical Records Attestation: I reviewed the patient's medical records. Home Medications Current Medication List: was personally reviewed by me Laboratory Data Attestation: I reviewed the patient's lab results. Result diagrams: 09/10/18 07:19 09/10/18 07:19 Lab Results 09/10/18 09/10/18 09/10/18 Range/Units 07:19 07:19 07:19 WBC 11.33 H (4.8-10.8) K/uL RBC 2.61 L (4.7-6.1) M/uL Hgb 7.5 L (14.0-18.0) g/dL Hct 23.7 L (42-52) % MCV 90.8 (80-100) fL MCH 28.7 (25-34) pg MCHC 31.6 L (32-36) g/dL RDW Std Deviation 46.8 H (36.4-46.3) fL RDW Coeff of Leatha 14.2 (11.5-14.5) % Plt Count 289 (130-400) K/uL MPV 8.9 (7.4-10.4) fL Immature Gran % (Auto) 0.3 % Neut % (Auto) 81.7 % Lymph % (Auto) 13.3 % [place] % (Auto) 4.5 % Eos % (Auto) 0.0 % Baso % (Auto) 0.2 % Immature Gran # (Auto) 0.03 H (0.00-0.02) K/uL Neut # (Auto) 9.26 H (1.4-6.5) K/uL Lymph # (Auto) 1.51 (1.2-3.4) K/uL [place] # (Auto) 0.51 (0.11-0.59) K/uL Eos # (Auto) 0.00 (0-0.5) K/uL Baso # (Auto) 0.02 (0-0.2) K/uL ESR (0-14) mm/hr PT 11.0 (9.0-12.0) Seconds INR 1.0 (0.9-1.1) APTT 32.2 H (21.0-31.0) Seconds PTT Ratio 1.2 Sodium Cancelled Potassium Cancelled Chloride Cancelled Carbon Dioxide Cancelled Anion Gap Cancelled BUN Cancelled Creatinine Cancelled Est Cr Clr Drug Dosing Cancelled Est GFR ( Amer) Cancelled Est GFR (Non-Af Amer) Cancelled BUN/Creatinine Ratio Cancelled Glucose Cancelled Lactate (0.4-2.0) mmol/L Calcium Cancelled Magnesium (1.8-2.4) mg/dl Total Bilirubin Cancelled AST Cancelled ALT Cancelled Alkaline Phosphatase Cancelled Troponin I (0-0.045) ng/ml C-Reactive Protein (0-0.29) mg/dl NT-Pro-B Natriuret Pep (0-900) pg/ml Total Protein Cancelled Albumin Cancelled Globulin Cancelled Albumin/Globulin Ratio Cancelled Procalcitonin (0-0.5) ng/ml Urine Color Urine Appearance (Clear) Urine pH (4.5-7.5) Ur Specific [place] (1.000-1.030) Urine Protein (Negative) Urine Glucose (UA) (Negative) Urine Ketones (Negative) Urine Blood (Negative) Urine Nitrite (Negative) Urine Bilirubin (Negative) Urine Urobilinogen (Negative) Ur Leukocyte Esterase (Negative) Urine WBC (Auto) (0-5) /hpf Urine RBC (Auto) (0-4) /hpf U Hyaline Cast (Auto) (0-5) /lpf U Epithel Cells (Auto) (0-5) /lpf Urine Bacteria (Auto) (Negative) Ur Renal Epithelial Cell 09/10/18 09/10/18 09/10/18 Range/Units 07:19 07:19 07:19 WBC (4.8-10.8) K/uL RBC (4.7-6.1) M/uL Hgb (14.0-18.0) g/dL Hct (42-52) % MCV (80-100) fL MCH (25-34) pg MCHC (32-36) g/dL RDW Std Deviation (36.4-46.3) fL RDW Coeff of Leatha (11.5-14.5) % Plt Count (130-400) K/uL MPV (7.4-10.4) fL Immature Gran % (Auto) % Neut % (Auto) % Lymph % (Auto) % [place] % (Auto) % Eos % (Auto) % Baso % (Auto) % Immature Gran # (Auto) (0.00-0.02) K/uL Neut # (Auto) (1.4-6.5) K/uL Lymph # (Auto) (1.2-3.4) K/uL [place] # (Auto) (0.11-0.59) K/uL Eos # (Auto) (0-0.5) K/uL Baso # (Auto) (0-0.2) K/uL ESR 78 H (0-14) mm/hr PT (9.0-12.0) Seconds INR (0.9-1.1) APTT (21.0-31.0) Seconds PTT Ratio Sodium Potassium Chloride Carbon Dioxide Anion Gap BUN Creatinine Est Cr Clr Drug Dosing Est GFR ( Amer) Est GFR (Non-Af Amer) BUN/Creatinine Ratio Glucose Lactate 1.4 (0.4-2.0) mmol/L Calcium Magnesium (1.8-2.4) mg/dl Total Bilirubin AST ALT Alkaline Phosphatase Troponin I (0-0.045) ng/ml C-Reactive Protein (0-0.29) mg/dl NT-Pro-B Natriuret Pep (0-900) pg/ml Total Protein Albumin Globulin Albumin/Globulin Ratio Procalcitonin 0.32 (0-0.5) ng/ml Urine Color Urine Appearance (Clear) Urine pH (4.5-7.5) Ur Specific [place] (1.000-1.030) Urine Protein (Negative) Urine Glucose (UA) (Negative) Urine Ketones (Negative) Urine Blood (Negative) Urine Nitrite (Negative) Urine Bilirubin (Negative) Urine Urobilinogen (Negative) Ur Leukocyte Esterase (Negative) Urine WBC (Auto) (0-5) /hpf Urine RBC (Auto) (0-4) /hpf U Hyaline Cast (Auto) (0-5) /lpf U Epithel Cells (Auto) (0-5) /lpf Urine Bacteria (Auto) (Negative) Ur Renal Epithelial Cell 09/10/18 09/10/18 Range/Units 07:19 07:53 WBC (4.8-10.8) K/uL RBC (4.7-6.1) M/uL Hgb (14.0-18.0) g/dL Hct (42-52) % MCV (80-100) fL MCH (25-34) pg MCHC (32-36) g/dL RDW Std Deviation (36.4-46.3) fL RDW Coeff of Leatha (11.5-14.5) % Plt Count (130-400) K/uL MPV (7.4-10.4) fL Immature Gran % (Auto) % Neut % (Auto) % Lymph % (Auto) % [place] % (Auto) % Eos % (Auto) % Baso % (Auto) % Immature Gran # (Auto) (0.00-0.02) K/uL Neut # (Auto) (1.4-6.5) K/uL Lymph # (Auto) (1.2-3.4) K/uL [place] # (Auto) (0.11-0.59) K/uL Eos # (Auto) (0-0.5) K/uL Baso # (Auto) (0-0.2) K/uL ESR (0-14) mm/hr PT (9.0-12.0) Seconds INR (0.9-1.1) APTT (21.0-31.0) Seconds PTT Ratio Sodium 139 Potassium 3.8 Chloride 103 Carbon Dioxide 28 Anion Gap 8.0 BUN 18 Creatinine 1.32 Est Cr Clr Drug Dosing Not Reportable Est GFR ( Amer) 69.4 Est GFR (Non-Af Amer) 59.9 BUN/Creatinine Ratio 13.5 Glucose 74 Lactate (0.4-2.0) mmol/L Calcium 7.3 L Magnesium 1.9 (1.8-2.4) mg/dl Total Bilirubin 0.1 AST 61 H ALT 38 Alkaline Phosphatase 102 Troponin I 0.037 (0-0.045) ng/ml C-Reactive Protein 5.27 H (0-0.29) mg/dl NT-Pro-B Natriuret Pep 1242 H (0-900) pg/ml Total Protein 6.8 Albumin 0.9 L Globulin 5.9 H Albumin/Globulin Ratio 0.2 L Procalcitonin (0-0.5) ng/ml Urine Color Yellow Urine Appearance Clear (Clear) Urine pH 7.5 (4.5-7.5) Ur Specific [place] 1.011 (1.000-1.030) Urine Protein Negative (Negative) Urine Glucose (UA) Negative (Negative) Urine Ketones Negative (Negative) Urine Blood 3+ H (Negative) Urine Nitrite Negative (Negative) Urine Bilirubin Negative (Negative) Urine Urobilinogen Negative (Negative) Ur Leukocyte Esterase Trace H (Negative) Urine WBC (Auto) 5-10 H (0-5) /hpf Urine RBC (Auto) >30 H (0-4) /hpf U Hyaline Cast (Auto) 1-5 (0-5) /lpf U Epithel Cells (Auto) 5-10 H (0-5) /lpf Urine Bacteria (Auto) 1+ H (Negative) Ur Renal Epithelial Cell Not Reportable Imaging Data Radiologist's Impression: Radiology results as stated below per my review and the radiologist's interpretation: XR knee LT 2V routine CLINICAL HISTORY: Left knee swelling. COMPARISON STUDY: Left knee 05/06/2015. FINDINGS: There is an external brace present. The left total knee prosthesis is been removed and antibiotic spacers are noted. No fracture or dislocation. Soft tissue swelling is noted throughout the knee. No bony destruction. There is a small amount of soft tissue gas within the suprapatellar space. IMPRESSION: 1. Diffuse soft tissue swelling within the left knee. 2. The left total knee arthroplasty has been removed and antibiotic spacers are present. 3. Small amount of soft tissue gas within the suprapatellar space which could be due to recent postoperative change or possibly infection. Clinical correlation recommended. Electronically signed by: Angel Camarena M.D. 09/10/2018 7:34 AM XR chest 1V portable CLINICAL HISTORY: Sepsis dyspnea COMPARISON STUDY: 12/29/2017 FINDINGS: Interval involvement of the consolidative infiltrate involving the right mid to lower lung. Peripheral infiltrative changes left hemithorax are also present. There is fullness the mid to superior mediastinum does on the basis of reactive adenopathy. Infiltrative change right pulmonary apex are present. IMPRESSION: 1. Diffuse consolidative infiltrate right lung. 2. Mediastinal and hilar fullness. 3. Developing peripheral infiltrate left lung. The above report was generated using voice recognition software. It may contain grammatical, syntax or spelling errors. Electronically signed by: Efren Lizarraga M.D. 09/10/2018 7:40 AM ORBIT RADIOGRAPHS 3 VIEWS HISTORY: pre-MRI screening. COMPARISON: Orbit radiographs 04/22/2017. FINDINGS: There are no radiopaque foreign bodies identified within the orbits. IMPRESSION: No radiopaque foreign bodies identified within the orbits. Electronically signed by: Angel Camarena M.D. 09/10/2018 9:33 AM MR lumbar spine wo con CLINICAL HISTORY: 58 years-old Male presenting with possible infection. TECHNIQUE: Multisequence, multiplanar MR imaging of the lumbar spine was performed without the use of intravenous contrast. IV contrast: None. COMPARISON: 10/03/[address] from 06/05/2016. FINDINGS: Localizer images: Unremarkable. The examination is extremely limited by image quality in part due to the patient 's anasarca as well as body habitus. Limited examination demonstrates normal lumbar lordosis. Bony edema is suggested along the anterior aspect of the L2-3 endplates. Vertebral bodies otherwise demonstrate height, alignment, and bone marrow signal intensity. Intervertebral discs of grossly preserved. No gross evidence of neural foraminal or spinal canal narrowing. Diffuse edema both in the subcutaneous tissue and paraspinal musculature. IMPRESSION: Nonspecific bony edema along the anterior aspect of the L2-3 endplates. Extremely limited examination due to anasarca and patient body habitus. No gross evidence of discitis osteomyelitis allowing for significant limitations. If there is continuing clinical concern, CT is recommended. Electronically signed by: Thom Mistry M.D. 09/10/2018 3:46 PM ECG Data Indication: abdominal pain Rate (beats per minute): 85 Rhythm: normal sinus Findings: no other (acute ST segments) and no ectopy Comparison ECG Date: from (06/12/18) Change: no significant change Blood Pressure Blood Pressure Findings: Elevated blood pressure Blood Pressure Disposition: further management by hospitalist MDM Narrative The patient is a 58-year-old male who presented to the emergency department for an evaluation of knee pain. The patient was recently admitted at [facility] in [place] for a septic knee joint as well as pneumonia. The patient was on IV antibiotics. He was treated surgically with the orthopedic group at their facility. The patient presents emergency department today after signing out AGAINST MEDICAL ADVICE from [facility]. The patient was found to have signs of erythema and swelling to the knee. He was also found to have signs of pneumonia. The patient was treated with IV fluids and IV antibiotics in the emergency department. I discussed the patient's laboratory and radiographic studies with him. I discussed his case with the on-call [facility] hospitalist group. They recommended an MRI of the lumbar spine. The patient is still awaiting the MRI. He had some trouble with the procedure and the MRI. The patient was reevaluated multiple times. Impression & Plan Pneumonia, Septic arthritis, Edema, peripheral Discharge Plan Visit Data Chief Complaint: Knee Pain/Injury Stated Complaint: LEFT KNEE PAIN S/P SURGERY ED Provider: Francois Perez ED Midlevel Provider: Sandra Bunn Discharge Problem: Pneumonia, Septic arthritis, Edema, peripheral Forms Stand Alone Forms: My [employer] Prescriptions Prescriptions: No Action Unobtainable RF: 0 Referrals Referrals: PCP,NO [Primary Care Provider] - The scribe's documentation has been prepared under my direction and personally reviewed by me in its entirety. I confirm that the note above accurately reflects all work, treatment, procedures, and medical decision making performed by me.
--- NOTE | 2018-09-10 07:36 | XRay Report ---
XR knee LT 2V routine CLINICAL HISTORY: Left knee swelling. COMPARISON STUDY: Left knee 05/06/2015. FINDINGS: There is an external brace present. The left total knee prosthesis is been removed and anti biotic spacers are noted. No fracture or dislocation. Soft tissue swelling is noted throughout the kn ee. No bony destruction. There is a small amount of soft tissue gas within the suprapatellar space. IMPRESSION: 1. Diffuse soft tissue swelling within the left knee. 2. The left total knee arthroplasty has been removed and antibiotic spacers are present. 3. Small amount of soft tissue gas within the suprapatellar space which could be due to recent postop erative change or possibly infection. Clinical correlation recommended. Electronically signed by: Angel Camarena M.D. 09/10/2018 7:34 AM
[2018-09-10 07:38] LABS: Basophils # (auto) 0.02 K/uL (0-0.2); Basophils % (auto) 0.2 %; Hematocrit (blood only) 23.7 % (42-52); Hemoglobin 7.5 g/dL (14.0-18.0); Immature Granulocytes # (auto) 0.03 K/uL (0.00-0.02); Immature Granulocytes % (auto) 0.3 %; Lymphocytes # (auto) 1.51 K/uL (1.2-3.4); Lymphocytes % (auto) 13.3 %; Mean Corpuscular Hgb Conc 31.6 g/dL (32-36); Mean Corpuscular Volume 90.8 fL (80-100); Mean Platelet Volume 8.9 fL (7.4-10.4); Monocytes # (auto) 0.51 K/uL (0.11-0.59); Monocytes % (auto) 4.5 %; Neutrophils # (auto) 9.26 K/uL (1.4-6.5); Neutrophils % (auto) 81.7 %; Platelet Count 289 K/uL (130-400); RDW Coefficient of Variation 14.2 % (11.5-14.5); RDW Standard Deviation 46.8 fL (36.4-46.3); Red Blood Count 2.61 M/uL (4.7-6.1); White Blood Count 11.33 K/uL (4.8-10.8)
--- NOTE | 2018-09-10 07:41 | XRay Report ---
XR chest 1V portable CLINICAL HISTORY: Sepsis dyspnea COMPARISON STUDY: 12/29/2017 FINDINGS: Interval involvement of the consolidative infiltrate involving the right mid to lower lung. Peripheral infiltrative changes left hemithorax are also present. There is fullness the mid to superior mediastinum does on the basis of reactive adenopathy. Infiltrat dione change right pulmonary apex are present. IMPRESSION: 1. Diffuse consolidative infiltrate right lung. 2. Mediastinal and hilar fullness. 3. Developing peripheral infiltrate left lung. The above report was generated using voice recognition software. It may contain grammatical, syntax or spelling errors. Electronically signed by: Efren Lizarraga M.D. 09/10/2018 7:40 AM
[2018-09-10 07:47] LABS: Partial Thromboplastin Ratio 1.2; Partial Thromboplastin Time 32.2 Seconds (21.0-31.0)
[2018-09-10 07:56] LABS: Albumin Level 0.9 gm/dl (3.4-5.0); BUN Creatinine Ratio 13.5 (10-20); Blood Urea Nitrogen 18 mg/dl (7-18); C Reactive Protein 5.27 mg/dl (0-0.29); Calcium 7.3 mg/dl (8.5-10.1); Carbon Dioxide 28 mmol/L (21-32); Chloride 103 mmol/L (98-107); Est GFR (African American) 69.4; Est GFR (Non-African American) 59.9; Glucose 74 mg/dl (70-99); Magnesium 1.9 mg/dl (1.8-2.4); Potassium 3.8 mmol/L (3.5-5.1); Sodium 139 mmol/L (136-145)
[2018-09-10 08:01] LABS: Alanine Aminotransferase 38 U/L (12-78); Albumin Globulin Ratio 0.2 (0.9-2); Alkaline Phosphatase 102 U/L (45-117); Aspartate Aminotransferase 61 U/L (15-37); Bilirubin,Total 0.1 mg/dl (0.1-1); Globulin 5.9 gm/dl (2.5-4.0); NT Pro B Type Natriuretic Pept 1242 pg/ml (0-900); Total Protein 6.8 gm/dl (6.4-8.2); Troponin I 0.037 ng/ml (0-0.045)
[2018-09-10 08:34] LABS: Appearance Urine Clear (Clear); Bilirubin Urine Negative (Negative); Color Urine Yellow; Glucose Urine UA Negative (Negative); Ketones Urine Negative (Negative); Leukocyte Esterase Urine Trace (Negative); Nitrite Urine Negative (Negative); Specific Gravity Urine 1.011 (1.000-1.030); Urobilinogen Urine Negative (Negative); pH Urine 7.5 (4.5-7.5)
[2018-09-10] MEDS ORDERED: PIPERACILLIN/TAZOBACTAM 4.5 GM/120 ML BAG IV ONE (08:43)
[2018-09-10] MEDS ORDERED: PIPERACILL/TAZOBAC CONSULT ACTIVE PRN ×2 (08:43→18:43)
[2018-09-10 08:50] LABS: Protein Urine Negative (Negative)
[2018-09-10] MEDS ORDERED: VANCOMYCIN CONSULT ACTIVE PRN ×2 (08:57→18:43)
[2018-09-10] MEDS ORDERED: VANCOMYCIN HCL 2,000 MG in SODIUM CHLORIDE 0.9% 500 ML IV ONE (08:57)
[2018-09-10 09:02] LABS: Bacteria Urine Automated 1+ (Negative)
--- NOTE | 2018-09-10 09:34 | XRay Report ---
ORBIT RADIOGRAPHS 3 VIEWS HISTORY: pre-MRI screening. COMPARISON: Orbit radiographs 04/22/2017. FINDINGS: There are no radiopaque foreign bodies identified within the orbits. IMPRESSION: No radiopaque foreign bodies identified within the orbits. Electronically signed by: Angel Camarena M.D. 09/10/2018 9:33 AM
[2018-09-10] MEDS: MoRPHine SULFATE 10 MG/ML CARP/VIAL IV PRN ×3 (11:11→13:06)
[2018-09-10] MEDS ORDERED: LORazepam 1 MG/2 ML VIAL IV STA (12:16)
[2018-09-10] MEDS ORDERED: LORazepam 2 MG/4 ML VIAL IV STA (12:56)
--- NOTE | 2018-09-10 15:47 | Magnetic Resonance Report ---
MR lumbar spine wo con CLINICAL HISTORY: 58 years-old Male presenting with possible infection. TECHNIQUE: Multisequence, multiplanar MR imaging of the lumbar spine was performed without the use of intravenous contrast. IV contrast: None. COMPARISON: 10/03/[address] from 06/05/2016. FINDINGS: Localizer images: Unremarkable. The examination is extremely limited by image quality in part due to the patient's anasarca as well a s body habitus. Limited examination demonstrates normal lumbar lordosis. Bony edema is suggested along the anterior a spect of the L2-3 endplates. Vertebral bodies otherwise demonstrate height, alignment, and bone marro w signal intensity. Intervertebral discs of grossly preserved. No gross evidence of neural foraminal or spinal canal narrowing. Diffuse edema both in the subcutaneous tissue and paraspinal musculature. IMPRESSION: Nonspecific bony edema along the anterior aspect of the L2-3 endplates. Extremely limited examination due to anasarca and patient body habitus. No gross evidence of discitis osteomyelitis allowing for s ignificant limitations. If there is continuing clinical concern, CT is recommended. Electronically signed by: Thom Mistry M.D. 09/10/2018 3:46 PM
--- NOTE | 2018-09-10 16:54 | XRay Report ---
XR KUB CLINICAL HISTORY: 58 years-old Male presenting with pain. TECHNIQUE: Single supine view of the abdomen was obtained. COMPARISON: CT from 06/13/2018 and plain radiograph from 04/19/2017. FINDINGS: Possible wall thickening of bowel loops in the left upper quadrant, which may be small bowel. Nonobst ructive bowel gas pattern. No gross pneumoperitoneum. Suture margins noted in the epigastrium and lef t mid abdomen from prior gastric bypass surgery. Cholecystectomy clips noted. Allowing for bowel gas and stool, no calcifications to suggest nephrolithiasis. Total right hip arthroplasty. Possible right basilar opacity. IMPRESSION: 1. Possible right lung base infiltrate. Consider chest x-ray for further evaluation. 2. Possible wall thickening of bowel loops in the left upper quadrant. Enteritis or other inflammati on of bowel cannot be excluded. Consider CT as appropriate. Electronically signed by: Thom Mistry M.D. 09/10/2018 4:52 PM
--- NOTE | 2018-09-10 17:14 | History & Physical Report ---
Date of Service September 10, 2018 Assessment & Plan (1) Pneumonia: Chest x-ray with diffuse consolidative infiltrate in the right lung as well as developing peripheral infiltrate in the left lung. Patient is presently afebrile, hemodynamically stable, no respiratory distress, nonseptic in appearance. He does have leukocytosis, WBCs = 11.33. Pro-calcitonin 0.32. Recent prolonged hospital stay with risk for resistant organisms. * Blood culture sent from ER * We will check sputum Gram stain and culture * Continue to monitor respiratory status * Present on Admission?: Yes (2) Septic arthritis: Per ER note, patient with history of left knee prosthesis initially placed in 2007 with multiple revisions. Recent prolonged and complicated hospital stay at [place], recent extraction of prosthesis with placement of antibiotic spacer. Patient left AMA yesterday. As above he is afebrile and hemodynamically stable. Dressing on left knee intact with no bleeding or drainage. Elevated ESR and CRP * Obtain records from [place] * Consult orthopedic surgery-greatly appreciate assistance with this interesting case * Empiric antibiotic coverage with vancomycin and Zosyn * Pain control with morphine 4 mg IV every 4 hours as needed * May consider ID consultation * Present on Admission?: Yes (3) Edema, peripheral: Patient with peripheral edema. Serum albumin of 0.9. 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 Question malnutrition as well as deconditioning after prolonged hospital stay and chronic illness. UA negative for protein. * Check prealbumin with a.m. labs * We will administer albumin IV x2 bottles * Consider nutrition consult when acute issues have resolved * Present on Admission?: Yes (4) Hypertension: Blood pressure presently 157/87. Unable to obtain list of patient's outpatient medications * Continue to monitor * Labetalol 10 mg IV every 4 hours as needed for blood pressure greater than 180 /110 * Present on Admission?: Yes (5) Borderline diabetes: Blood sugar presently 74. * Fingersticks q. before meals and nightly * Check hemoglobin A1c * Present on Admission?: Yes (6) Gastric ulcer: Protonix 40 mg p.o. daily Present on Admission?: Yes (7) Alcohol abuse: Patient with remote history of alcohol and heroin abuse. Per ER documentation he denies recent use of either substance. * Check U tox and alcohol level * Monitor for clinical evidence of withdrawal * (8) Anemia: Patient with normochromic normocytic anemia. Hemoglobin of 7.5, hematocrit 23.7 with baseline of 10 and 30 respectively. Most likely secondary to postoperative blood loss. No active bleeding identified. * We will continue to monitor with daily CBC. * Type and screen, transfuse for symptomatic anemia, active bleeding, or hemoglobin less than 7 * Present on Admission?: Yes (9) Leg weakness: Patient with complaint of back pain, bilateral leg weakness, as well as incontinence. Concern for spinal compression or cauda equina symptoms. MRI of the lumbar spine obtained-limited study reveals no acute pathology. On exam patient moving his feet on command with 5 out of 5 strength. Movement at the hips and knees limited. * Neurochecks every 4 hours * Consider additional imaging with CT * FEN-albumin 25% x2 bottles, LR at 100 mL/h x 2 L, monitor electrolytes and replete as needed, regular diet Ppx-Lovenox Code-full Dispo -admit to [facility] with telemetry Present on Admission?: Yes History of Present Illness Chief Complaint: Knee pain Primary Care Provider: NO PCP Patient is a 58-year-old -[place] male with history of hypertension, former IV heroin and alcohol abuse and borderline diabetes presenting with knee pain. History obtained through review of chart as patient is somnolent during exam after receiving Ativan. Patient presents today complaining of worsening left knee pain. He reports that he was hospitalized at [facility] for over a month secondary to an infection of his left knee prosthesis (initially placed in 2007). Patient reports multiple revisions to his left knee. Reports that 4 days ago the prosthesis was removed and replaced with an antibiotic spacer. Patient left [facility] A[facility] last evening due to the desire to be closer to family and home. He reports that he took a bus here. On arrival patient was found to be afebrile and hemodynamically stable. He was complaining of abdominal pain and distention as well as nausea. Also complaining of back pain, bowel incontinence and numbness of his legs that has been present since being admitted to [place]. ER course: Ativan 1 mg, Ativan 2 mg, Zosyn, vancomycin Allergies Allergy/AdvReac Type Severity Reaction Status Date / Time No Known Allergies Allergy Verified 09/10/18 06:28 Home Medications Home Medications Medication Instructions Recorded Confirmed Type Unobtainable 09/10/18 09/10/18 History Past Med/Surg History Medical History PTSD (post-traumatic stress disorder) (Chronic) Heroin overdose (Chronic) Borderline diabetes High blood pressure Surgical History History of gastric bypass History of hernia repair Hx of foot surgery Status post left knee replacement With multiple revisions. Presently with antibiotic spacer in place Family History Other Diabetes Heart disease Social History Feels Safe at Home: Yes Smoking Status: Current every day smoker Review of Systems Unobtainable due to cognitive status Physical Exam 2 Vital Signs (Past 24 Hours): Last Vital Signs Pulse 99 H 09/10/18 15:42 Resp 20 09/10/18 15:42 BP 145/93 H 09/10/18 15:42 Pulse Ox 95 09/10/18 15:42 Physical Exam: General: patient somnolent, arousable, does not answer questions appropriately, follows simple commands. NAD, chronically ill in appearance poorly kempt Skin: Dry, flaking, no rashes or lesions HEENT: NC/AT, pupils small and reactive, anicteric sclera, conjunctiva without injection, external ear normal to inspection and nontender, nares patent, dry mucus membranes, poor dentition, no oropharyngeal lesions, neck supple, trachea midline, no LAD, no thyromegaly, no JVD Heart: +S1/S2, regular, no m/r/g Lungs: Poor compliance with exam, equal air entry bilaterally, no rales/rhonchi/ wheezes Abd: +BS, soft, NT/ND, no masses/organomegaly/ascites, Diop catheter in place with 1 L of pink urine Ext: warm, 2+ pulses in UE/LE bilaterally, 2+ nonpitting edema bilateral lower extremities, left knee with dressing in place, clean/dry/intact Neuro: Exam limited secondary to cognitive status after receiving Ativan. Patient grossly nonfocal, speech garbled, no facial droop, moving all extremities on command with equal strength 5/5 Results & Data Laboratory Results Lab Results 09/10/18 09/10/18 09/10/18 Range/Units 07:19 07:19 07:19 WBC 11.33 H (4.8-10.8) K/uL RBC 2.61 L (4.7-6.1) M/uL Hgb 7.5 L (14.0-18.0) g/dL Hct 23.7 L (42-52) % MCV 90.8 (80-100) fL MCH 28.7 (25-34) pg MCHC 31.6 L (32-36) g/dL RDW Std Deviation 46.8 H (36.4-46.3) fL RDW Coeff of [place]atha 14.2 (11.5-14.5) % Plt Count 289 (130-400) K/uL MPV 8.9 (7.4-10.4) fL Immature Gran % (Auto) 0.3 % Neut % (Auto) 81.7 % Lymph % (Auto) 13.3 % [place] % (Auto) 4.5 % Eos % (Auto) 0.0 % Baso % (Auto) 0.2 % Immature Gran # (Auto) 0.03 H (0.00-0.02) K/uL Neut # (Auto) 9.26 H (1.4-6.5) K/uL Lymph # (Auto) 1.51 (1.2-3.4) K/uL [place] # (Auto) 0.51 (0.11-0.59) K/uL Eos # (Auto) 0.00 (0-0.5) K/uL Baso # (Auto) 0.02 (0-0.2) K/uL ESR (0-14) mm/hr PT 11.0 (9.0-12.0) Seconds INR 1.0 (0.9-1.1) APTT 32.2 H (21.0-31.0) Seconds PTT Ratio 1.2 Sodium Cancelled Potassium Cancelled Chloride Cancelled Carbon Dioxide Cancelled Anion Gap Cancelled BUN Cancelled Creatinine Cancelled Est Cr Clr Drug Dosing Cancelled Est GFR ( Amer) Cancelled Est GFR (Non-Af Amer) Cancelled BUN/Creatinine Ratio Cancelled Glucose Cancelled Lactate (0.4-2.0) mmol/L Calcium Cancelled Magnesium (1.8-2.4) mg/dl Total Bilirubin Cancelled AST Cancelled ALT Cancelled Alkaline Phosphatase Cancelled Troponin I (0-0.045) ng/ml C-Reactive Protein (0-0.29) mg/dl NT-Pro-B Natriuret Pep (0-900) pg/ml Total Protein Cancelled Albumin Cancelled Globulin Cancelled Albumin/Globulin Ratio Cancelled Procalcitonin (0-0.5) ng/ml Urine Color Urine Appearance (Clear) Urine pH (4.5-7.5) Ur Specific [place] (1.000-1.030) Urine Protein (Negative) Urine Glucose (UA) (Negative) Urine Ketones (Negative) Urine Blood (Negative) Urine Nitrite (Negative) Urine Bilirubin (Negative) Urine Urobilinogen (Negative) Ur Leukocyte Esterase (Negative) Urine WBC (Auto) (0-5) /hpf Urine RBC (Auto) (0-4) /hpf U Hyaline Cast (Auto) (0-5) /lpf U Epithel Cells (Auto) (0-5) /lpf Urine Bacteria (Auto) (Negative) Ur Renal Epithelial Cell 09/10/18 09/10/18 09/10/18 Range/Units 07:19 07:19 07:19 WBC (4.8-10.8) K/uL RBC (4.7-6.1) M/uL Hgb (14.0-18.0) g/dL Hct (42-52) % MCV (80-100) fL MCH (25-34) pg MCHC (32-36) g/dL RDW Std Deviation (36.4-46.3) fL RDW Coeff of [place] (11.5-14.5) % Plt Count (130-400) K/uL MPV (7.4-10.4) fL Immature Gran % (Auto) % Neut % (Auto) % Lymph % (Auto) % [place] % (Auto) % Eos % (Auto) % Baso % (Auto) % Immature Gran # (Auto) (0.00-0.02) K/uL Neut # (Auto) (1.4-6.5) K/uL Lymph # (Auto) (1.2-3.4) K/uL [place] # (Auto) (0.11-0.59) K/uL Eos # (Auto) (0-0.5) K/uL Baso # (Auto) (0-0.2) K/uL ESR 78 H (0-14) mm/hr PT (9.0-12.0) Seconds INR (0.9-1.1) APTT (21.0-31.0) Seconds PTT Ratio Sodium Potassium Chloride Carbon Dioxide Anion Gap BUN Creatinine Est Cr Clr Drug Dosing Est GFR ( Amer) Est GFR (Non-Af Amer) BUN/Creatinine Ratio Glucose Lactate 1.4 (0.4-2.0) mmol/L Calcium Magnesium (1.8-2.4) mg/dl Total Bilirubin AST ALT Alkaline Phosphatase Troponin I (0-0.045) ng/ml C-Reactive Protein (0-0.29) mg/dl NT-Pro-B Natriuret Pep (0-900) pg/ml Total Protein Albumin Globulin Albumin/Globulin Ratio Procalcitonin 0.32 (0-0.5) ng/ml Urine Color Urine Appearance (Clear) Urine pH (4.5-7.5) Ur Specific [place] (1.000-1.030) Urine Protein (Negative) Urine Glucose (UA) (Negative) Urine Ketones (Negative) Urine Blood (Negative) Urine Nitrite (Negative) Urine Bilirubin (Negative) Urine Urobilinogen (Negative) Ur Leukocyte Esterase (Negative) Urine WBC (Auto) (0-5) /hpf Urine RBC (Auto) (0-4) /hpf U Hyaline Cast (Auto) (0-5) /lpf U Epithel Cells (Auto) (0-5) /lpf Urine Bacteria (Auto) (Negative) Ur Renal Epithelial Cell 09/10/18 09/10/18 Range/Units 07:19 07:53 WBC (4.8-10.8) K/uL RBC (4.7-6.1) M/uL Hgb (14.0-18.0) g/dL Hct (42-52) % MCV (80-100) fL MCH (25-34) pg MCHC (32-36) g/dL RDW Std Deviation (36.4-46.3) fL RDW Coeff of [place]atha (11.5-14.5) % Plt Count (130-400) K/uL MPV (7.4-10.4) fL Immature Gran % (Auto) % Neut % (Auto) % Lymph % (Auto) % [place] % (Auto) % Eos % (Auto) % Baso % (Auto) % Immature Gran # (Auto) (0.00-0.02) K/uL Neut # (Auto) (1.4-6.5) K/uL Lymph # (Auto) (1.2-3.4) K/uL [place] # (Auto) (0.11-0.59) K/uL Eos # (Auto) (0-0.5) K/uL Baso # (Auto) (0-0.2) K/uL ESR (0-14) mm/hr PT (9.0-12.0) Seconds INR (0.9-1.1) APTT (21.0-31.0) Seconds PTT Ratio Sodium 139 Potassium 3.8 Chloride 103 Carbon Dioxide 28 Anion Gap 8.0 BUN 18 Creatinine 1.32 Est Cr Clr Drug Dosing Not Reportable Est GFR ( Amer) 69.4 Est GFR (Non-Af Amer) 59.9 BUN/Creatinine Ratio 13.5 Glucose 74 Lactate (0.4-2.0) mmol/L Calcium 7.3 L Magnesium 1.9 (1.8-2.4) mg/dl Total Bilirubin 0.1 AST 61 H ALT 38 Alkaline Phosphatase 102 Troponin I 0.037 (0-0.045) ng/ml C-Reactive Protein 5.27 H (0-0.29) mg/dl NT-Pro-B Natriuret Pep 1242 H (0-900) pg/ml Total Protein 6.8 Albumin 0.9 L Globulin 5.9 H Albumin/Globulin Ratio 0.2 L Procalcitonin (0-0.5) ng/ml Urine Color Yellow Urine Appearance Clear (Clear) Urine pH 7.5 (4.5-7.5) Ur Specific [place] 1.011 (1.000-1.030) Urine Protein Negative (Negative) Urine Glucose (UA) Negative (Negative) Urine Ketones Negative (Negative) Urine Blood 3+ H (Negative) Urine Nitrite Negative (Negative) Urine Bilirubin Negative (Negative) Urine Urobilinogen Negative (Negative) Ur Leukocyte Esterase Trace H (Negative) Urine WBC (Auto) 5-10 H (0-5) /hpf Urine RBC (Auto) >30 H (0-4) /hpf U Hyaline Cast (Auto) 1-5 (0-5) /lpf U Epithel Cells (Auto) 5-10 H (0-5) /lpf Urine Bacteria (Auto) 1+ H (Negative) Ur Renal Epithelial Cell Not Reportable Diagnostic Findings XR chest 1V portable CLINICAL HISTORY: Sepsis dyspnea COMPARISON STUDY: 12/29/2017 FINDINGS: Interval involvement of the consolidative infiltrate involving the right mid to lower lung. Peripheral infiltrative changes left hemithorax are also present. There is fullness the mid to superior mediastinum does on the basis of reactive adenopathy. Infiltrative change right pulmonary apex are present. IMPRESSION: 1. Diffuse consolidative infiltrate right lung. 2. Mediastinal and hilar fullness. 3. Developing peripheral infiltrate left lung. XR KUB CLINICAL HISTORY: 58 years-old Male presenting with pain. TECHNIQUE: Single supine view of the abdomen was obtained. COMPARISON: CT from 06/13/2018 and plain radiograph from 04/19/2017. FINDINGS: Possible wall thickening of bowel loops in the left upper quadrant, which may be small bowel. Nonobstructive bowel gas pattern. No gross pneumoperitoneum. Suture margins noted in the epigastrium and left mid abdomen from prior gastric bypass surgery. Cholecystectomy clips noted. Allowing for bowel gas and stool, no calcifications to suggest nephrolithiasis. Total right hip arthroplasty. Possible right basilar opacity. IMPRESSION: 1. Possible right lung base infiltrate. Consider chest x-ray for further evaluation. 2. Possible wall thickening of bowel loops in the left upper quadrant. Enteritis or other inflammation of bowel cannot be excluded. Consider CT as appropriate. Electronically signed by: Thom Mistry M.D. 09/10/2018 4:52 PM XR knee LT 2V routine CLINICAL HISTORY: Left knee swelling. COMPARISON STUDY: Left knee 05/06/2015. FINDINGS: There is an external brace present. The left total knee prosthesis is been removed and antibiotic spacers are noted. No fracture or dislocation. Soft tissue swelling is noted throughout the knee. No bony destruction. There is a small amount of soft tissue gas within the suprapatellar space. IMPRESSION: 1. Diffuse soft tissue swelling within the left knee. 2. The left total knee arthroplasty has been removed and antibiotic spacers are present. 3. Small amount of soft tissue gas within the suprapatellar space which could be due to recent postoperative change or possibly infection. Clinical correlation recommended. Electronically signed by: Angel Camarena M.D. 09/10/2018 7:34 AM MR lumbar spine wo con CLINICAL HISTORY: 58 years-old Male presenting with possible infection. TECHNIQUE: Multisequence, multiplanar MR imaging of the lumbar spine was performed without the use of intravenous contrast. IV contrast: None. COMPARISON: 10/03/[address] from 06/05/2016. FINDINGS: Localizer images: Unremarkable. The examination is extremely limited by image quality in part due to the patient 's anasarca as well as body habitus. Limited examination demonstrates normal lumbar lordosis. Bony edema is suggested along the anterior aspect of the L2-3 endplates. Vertebral bodies otherwise demonstrate height, alignment, and bone marrow signal intensity. Intervertebral discs of grossly preserved. No gross evidence of neural foraminal or spinal canal narrowing. Diffuse edema both in the subcutaneous tissue and paraspinal musculature. IMPRESSION: Nonspecific bony edema along the anterior aspect of the L2-3 endplates. Extremely limited examination due to anasarca and patient body habitus. No gross evidence of discitis osteomyelitis allowing for significant limitations. If there is continuing clinical concern, CT is recommended. Electronically signed by: Thom Mistry M.D. 09/10/2018 3:46 PM Dictated: 09/10/181540 Transcribed: 09/10/181540 ECG Additional Comments: Study reveals sinus rhythm with first-degree AV block, rate of 85 bpm, NE interval 254, QRS interval 84, QTc interval 414. No evidence of acute ischemia Code Status & VTE Plan Code Status Full code VTE Prophylaxis Plan VTE Prophylaxis will be ordered: Yes Critical Care Time Critical Care Time: No _ (1) Pneumonia Aspiration pneumonia type: Laterality: right Lung location: unspecified part of lung Pneumonia type: due to unspecified organism Qualified Code(s): J18.9 - Pneumonia, unspecified organism (2) Septic arthritis Laterality: left Septic arthritis location: knee Septic arthritis organism: due to unspecified organism Qualified Code(s): M00.9 - Pyogenic arthritis, unspecified (3) Hypertension Hypertension type: essential hypertension Qualified Code(s): I10 - Essential (primary) hypertension (4) Gastric ulcer Gastric ulcer chronicity: unspecified ulcer chronicity Gastric ulcer complication status: unspecified whether hemorrhage or perforation present Qualified Code(s): K25.9 - Gastric ulcer, unspecified as acute or chronic, without hemorrhage or perforation (5) Anemia Anemia type: unspecified type Qualified Code(s): D64.9 - Anemia, unspecified (6) Leg weakness Laterality: bilateral Qualified Code(s): R29.898 - Other symptoms and signs involving the musculoskeletal system
[2018-09-10] MEDS ORDERED: LABETALOL HCL IV 5 MG/ML 20ML IV PRN (18:43)
[2018-09-10] MEDS ORDERED: ACETAMINOPHEN 325 MG TAB PO PRN (18:43)
[2018-09-10] MEDS ORDERED: PIPERACILLIN/TAZOBACTAM 3.375 GM in DEXTROSE 5% 100 ML IV SCH (18:43)
[2018-09-10] MEDS: LACTATED RINGER'S 1,000 ML IV SCH (19:14)
[2018-09-10] MEDS ORDERED: PIPERACILLIN/TAZOBACTAM 3.375 GM in DEXTROSE 5% 100 ML IV ONE (19:45)
--- NOTE | 2018-09-10 20:54 | Pharmacy Report ---
Pharmacy Abx Dose Short Note - Date of Service September 10, 2018 - Assessment & Plan Assessment 58 year old M receiving IV Vancomycin and Zosyn for treatment of septic arthritis, pneumonia Day # 1 of antimicrobial therapy. Plan Vancomycin * Patient received Vancomycin 2000mg (~21mg/kg) IV x 1 as a loading dose in ED on 09/10 @ 0929 * Initiate Vancomycin 1500mg (~16mg/kg) IV q10 as maintenance * Goal trough level for septic arthritis : 15 to 20 mcg/mL * Trough level ordered for: 09/12/18 @ 0130 (prior to 4th dose and therefore should be reflective of steady state) Zosyn * Need to re-load Zosyn due to >10 hours since initial dose was given * Give Zosyn 3.375g IV x 1 over 30 minutes as loading dose * Initiate Zosyn 3.375g IV q8 (extended infusion over 4 hours) Pharmacy will continue to follow and will adjust dose/frequency as necessary. Thank you.
[2018-09-10] MEDS: ALBUMIN 25% 50 ML IV SCH ×2 (21:39→22:19)
[2018-09-10] MEDS: ENOXAPARIN INJ 40 MG/0.4 ML SYR SQ SCH (21:46)
[2018-09-10] MEDS: VANCOMYCIN HCL 1,500 MG in SODIUM CHLORIDE 0.9% 500 ML IV SCH (23:27)
[2018-09-11] MEDS: PIPERACILLIN/TAZOBACTAM 3.375 GM in DEXTROSE 5% 100 ML IV SCH ×3 (03:55→20:21)
[2018-09-11] MEDS: MoRPHine SULFATE 4 MG/ML 1 ML CARP\\VIAL IV PRN ×4 (04:31→16:47)
[2018-09-11] MEDS: ONDANSETRON INJ 2 MG/ML 2 ML VIAL IV PRN (05:41)
[2018-09-11] MEDS: VANCOMYCIN HCL 1,500 MG in SODIUM CHLORIDE 0.9% 500 ML IV SCH ×2 (06:04→22:03)
[2018-09-11 06:19] LABS: Basophils # (auto) 0.02 K/uL (0-0.2); Basophils % (auto) 0.2 %; Eosinophils # (auto) 0.12 K/uL (0-0.5); Eosinophils % (auto) 1.1 %; Hematocrit (blood only) 24.5 % (42-52); Hemoglobin 7.9 g/dL (14.0-18.0); Immature Granulocytes # (auto) 0.04 K/uL (0.00-0.02); Immature Granulocytes % (auto) 0.4 %; Lymphocytes # (auto) 1.61 K/uL (1.2-3.4); Lymphocytes % (auto) 15.4 %; Mean Corpuscular Hgb Conc 32.2 g/dL (32-36); Mean Corpuscular Volume 91.4 fL (80-100); Mean Platelet Volume 8.8 fL (7.4-10.4); Monocytes # (auto) 0.44 K/uL (0.11-0.59); Monocytes % (auto) 4.2 %; Neutrophils # (auto) 8.22 K/uL (1.4-6.5); Neutrophils % (auto) 78.7 %; Platelet Count 346 K/uL (130-400); RDW Coefficient of Variation 14.3 % (11.5-14.5); RDW Standard Deviation 47.8 fL (36.4-46.3); Red Blood Count 2.68 M/uL (4.7-6.1); White Blood Count 10.45 K/uL (4.8-10.8)
[2018-09-11 06:47] LABS: BUN Creatinine Ratio 11.9 (10-20); Calcium 7.6 mg/dl (8.5-10.1); Creatinine Clr Calc Pharmacy 65.7 ml/min; Est GFR (Non-African American) 50.9; Potassium 3.6 mmol/L (3.5-5.1)
[2018-09-11 06:51] LABS: Prealbumin 5.6 mg/dl (20-40)
[2018-09-11 07:01] LABS: Anisocytosis Present
[2018-09-11 08:27] LABS: Estimated Average Glucose 114 mg/dl
[2018-09-11] MEDS: LACTATED RINGER'S 1,000 ML IV SCH (12:42)
--- NOTE | 2018-09-11 18:35 | Hospitalist Progress Note ---
Date of Service September 11, 2018 Assessment & Plan (1) Pneumonia: Chest x-ray with diffuse consolidative infiltrate in the right lung as well as developing peripheral infiltrate in the left lung. Patient is presently afebrile, hemodynamically stable, no respiratory distress, nonseptic in appearance. He does have leukocytosis, WBCs = 11.33. Pro-calcitonin 0.32. Recent prolonged hospital stay with risk for resistant organisms. * * Awaiting cultures. * Will continue current antibiotics. (2) Septic arthritis: Per ER note, patient with history of left knee prosthesis initially placed in 2007 with multiple revisions. Recent prolonged and complicated hospital stay at [facility], recent extraction of prosthesis with placement of antibiotic spacer. Patient left AMA yesterday. As above he is afebrile and hemodynamically stable. Dressing on left knee intact with no bleeding or drainage. Elevated ESR and CRP * Obtain records from [facility] * Consult orthopedic surgery-greatly appreciate assistance with this interesting case * Empiric antibiotic coverage with vancomycin and Zosyn * Pain control with morphine 4 mg IV every 4 hours as needed * WILL HOLD ID consult for now. * Still awaiting records. * Obtained consent form for records. * Awaiting inpur form ortho here. * Initally ortho recommending transferring patient back to tertiary center. (3) Edema, peripheral: Patient with peripheral edema. Serum albumin of 0.9. 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 Question malnutrition as well as deconditioning after prolonged hospital stay and chronic illness. UA negative for protein. * Check prealbumin with a.m. labs * We will administer albumin IV x2 bottles * Consider nutrition consult when acute issues have resolved * (4) Hypertension: Blood pressure presently 157/87. Unable to obtain list of patient's outpatient medications * Continue to monitor * Labetalol 10 mg IV every 4 hours as needed for blood pressure greater than 180 /110 * (5) Borderline diabetes: Blood sugar presently 74. * Fingersticks q. before meals and nightly * A1C is 5.6 * (6) Gastric ulcer: Protonix 40 mg p.o. daily (7) Alcohol abuse: Patient with remote history of alcohol and heroin abuse. Per ER documentation he denies recent use of either substance. * Check U tox and alcohol level * Monitor for clinical evidence of withdrawal * Currently no exhibiting signs of withdrawal (8) Anemia: Patient with normochromic normocytic anemia. Hemoglobin of 7.5, hematocrit 23.7 with baseline of 10 and 30 respectively. Most likely secondary to postoperative blood loss. No active bleeding identified. * We will continue to monitor with daily CBC. * Type and screen, transfuse for symptomatic anemia, active bleeding, or hemoglobin less than 7 * (9) Leg weakness: Patient with complaint of back pain, bilateral leg weakness, as well as incontinence. Concern for spinal compression or cauda equina symptoms. MRI of the lumbar spine obtained-limited study reveals no acute pathology. On exam patient moving his feet on command with 5 out of 5 strength. Movement at the hips and knees limited. * Neurochecks every 4 hours * will hold off further imagin at this time Ppx-Lovenox Code-full Spent 35 minutes with patient. This inlcued time spent with patient. Discussing case with ortho and his spouse. Subjective Patient reports earlier this week he had his prosthesis removed and antibiotic spacer placed. He reports that he continues to have pain in his affected knee. Patient wanted to be close to family which is why he left AMA from [facility] to come to the hosptial. Upon further questioning of their plan, he only states that they were only recommending PHysical therapy. I asked patienT if he can give us a medical release form so we can obtain information from [facility]. pATIENT also reports hvaing intermittent cough Constitutional: no fever and no sweats Eyes: no diplopia Ear, Nose, Mouth, Throat: no tinnitus Respiratory: + cough Cardiovascular: no chest pain Gastrointestinal: no abdominal pain Musculoskeletal: + joint pain Integumentary: no acne Neurologic: no falls Psychiatric: no behavioral changes Endocrine: no fatigue Physical Exam 2 Vital Signs (Past 24 Hours): Last Vital Signs Temp 37.7 C H 09/11/18 14:51 Pulse 88 09/11/18 16:39 Resp 18 09/11/18 14:51 BP 138/78 09/11/18 16:39 Pulse Ox 97 09/11/18 14:51 Physical Exam: General: Patient is awake, follows commands. NAD, Skin: Dry, flaking, no rashes or lesions HEENT: NC/AT, pupils small and reactive, anicteric sclera, conjunctiva without injection, external ear normal to inspection and nontender, nares patent, dry mucus membranes, poor dentition, no oropharyngeal lesions, neck supple, trachea midline, no LAD, no thyromegaly, no JVD Heart: +S1/S2, regular, no m/r/g Lungs: equal air entry bilaterally, no rales/rhonchi/wheezes Abd: +BS, soft, NT/ND, no masses/organomegaly/ascites Ext: warm, 2+ pulses in UE/LE bilaterally, 2+ nonpitting edema bilateral lower extremities, left knee with dressing in place, clean/dry/intact Neuro: AAOX 3 currently. (As per nurse, he had been waxing and waning) _ (1) Anemia Anemia type: unspecified type Bone marrow failure anemia type: Chronic kidney disease stage: Folate deficiency anemia type: Hemolytic anemia type: Iron deficiency anemia type: Other causes of anemia: Vitamin B12 deficiency anemia type: Qualified Code(s): D64.9 - Anemia, unspecified (2) Septic arthritis Laterality: left Septic arthritis location: knee Septic arthritis organism: due to unspecified organism Qualified Code(s): M00.9 - Pyogenic arthritis, unspecified (3) Leg weakness Laterality: bilateral Qualified Code(s): R29.898 - Other symptoms and signs involving the musculoskeletal system (4) Gastric ulcer Gastric ulcer chronicity: unspecified ulcer chronicity Gastric ulcer complication status: unspecified whether hemorrhage or perforation present Qualified Code(s): K25.9 - Gastric ulcer, unspecified as acute or chronic, without hemorrhage or perforation (5) Hypertension Hypertension type: essential hypertension Qualified Code(s): I10 - Essential (primary) hypertension (6) Pneumonia Aspiration pneumonia type: Laterality: right Lung location: unspecified part of lung Pneumonia type: due to unspecified organism Qualified Code(s): J18.9 - Pneumonia, unspecified organism
--- NOTE | 2018-09-11 18:49 | Orthopedic Consultation ---
Date of Consultation September 11, 2018 Assessment & Plan (1) Septic arthritis: The patient is currently POD # 7 from left knee irrigation and debridement , explant of knee prosthesis and placement of antibiotic cement spacer. There is no acute orthopedic intervention indicated at this time. His clinical and diagnostic findings are consistent with recent surgery. I had a detailed conversation with the patient in regards to his current orthopedic problems. I stressed the importance of compliance with treatment for his septic TKA. Failure to do so could result in worsening of his symptoms/infection and subsequently result in loss of limb or loss of life. He is under the care of Dr. Velasco and we will defer his follow up care to his primary surgeon. He will need to follow up with Dr. Velasco, [facility] for all his post operative care. For his current hospital stay, recommend dressings changed PRN, IV abx per medical team/ID, trend inflammatory labs, partial weight bearing LLE, we will order hinged knee brace for him to be worn at all times. In addition, the typical course post operatively for antibiotic cement spacers will require close monitoring by infectious disease and his PCP with a prolonged course of IV abx, sutures be removed at 2 weeks, removal of his antibiotic cement spacer at 6-12 weeks with either placement of new abx spacer vs revision TKA vs knee fusion, all of which should be performed at a tertiary care center. Would avoid narcotic pain medications secondary to past medical history for opiod, etoh and drug abuse. Will order lidoderm patch. Thank you for the consultation. History of Present Illness Reason for Consultation: Recent knee surgery for left knee PJI Attending Physician: Renzo Montes History of Present Illness The patient is a 58 year old male with a complicated recent medical history which includes opiod, etoh and IVD abuse, recent hospitalization at [facility] for ARF, BISHOP, sepsis and anemia on . He was found to have septic left TKA and subsequently underwent explant of his left TKA with placement of antibiotic cement spacer on 09/04/[address] Velasco. The patient left the hospital AMA and was given instructions to follow up with his surgeon 2 weeks post operatively. The patient is now 7 days post op. C/O pain to bilateral knees, chronic atrauamtic, denies fevers, chills, nausea, vomiting, SOB and CP. The patient has bilateral lower extremity neuropathy at baseline. Denies trauma. The patient is a poor historian and provides little insight to the plan of course for his most recent surgery. Allergies Allergy/AdvReac Type Severity Reaction Status Date / Time No Known Allergies Allergy Verified 09/10/18 06:28 Home Medications Home Medications Medication Instructions Recorded Confirmed Type Unobtainable 09/10/18 09/10/18 History Patient History Medical History PTSD (post-traumatic stress disorder) (Chronic) Heroin overdose (Chronic) Borderline diabetes High blood pressure Surgical History History of gastric bypass History of hernia repair Hx of foot surgery Status post left knee replacement With multiple revisions. Presently with antibiotic spacer in place Family History Other Diabetes Heart disease Social History Current Living Situation: Spouse Other Information That Helps Us Care for You: No Feels Safe at Home: Yes Safety Concerns: Feels Safe At This Time Smoking Status: Former smoker Tobacco Type: cigarettes Hx Alcohol Use: Yes Alcohol Intake Frequency: 3 or more drinks per day Hx Substance Use: Yes substance use type: former substance user, heroin and IV drugs Beliefs That Will Affect Care: None Communication Ability: Impaired Review of Systems Constitutional: as per Subjective / HPI Physical Exam 2 Vital Signs (Past 24 Hours): Last Vital Signs Temp 37.7 C H 09/11/18 14:51 Pulse 88 09/11/18 16:39 Resp 18 09/11/18 14:51 BP 138/78 09/11/18 16:39 Pulse Ox 97 09/11/18 14:51 Physical Exam: NAD, AOx3 B/L LE NVSI +EHL/FHL/TA/GS SILT grossly, +2 DP pulse, compartments soft NT. the patient has tenderness to palpation grossly, surgical knee incision is cdi, sutures in place anterior midline incision. moderate swelling, skin temperature is appropriate to touch. Results & Data Diagnostic Findings XR knee LT 2V routine CLINICAL HISTORY: Left knee swelling. COMPARISON STUDY: Left knee 05/06/2015. FINDINGS: There is an external brace present. The left total knee prosthesis is been removed and antibiotic spacers are noted. No fracture or dislocation. Soft tissue swelling is noted throughout the knee. No bony destruction. There is a small amount of soft tissue gas within the suprapatellar space. IMPRESSION: 1. Diffuse soft tissue swelling within the left knee. 2. The left total knee arthroplasty has been removed and antibiotic spacers are present. 3. Small amount of soft tissue gas within the suprapatellar space which could be due to recent postoperative change or possibly infection. Clinical correlation recommended. _ (1) Septic arthritis Laterality: left Septic arthritis location: knee Septic arthritis organism: due to unspecified organism Qualified Code(s): M00.9 - Pyogenic arthritis, unspecified
[2018-09-11] MEDS ORDERED: MoRPHine SULFATE 2 MG/ML CARP IV STA (19:59)
[2018-09-11] MEDS: ENOXAPARIN INJ 40 MG/0.4 ML SYR SQ SCH (20:31)
[2018-09-11] MEDS: ZOLPIDEM TARTRATE 5 MG TAB PO PRN (20:35)
[2018-09-11] MEDS: LIDOCAINE 5% 1 PATCH TD SCH (22:05)
[2018-09-11] MEDS: KETOROLAC TROMETHAMINE 15 MG/ML VIAL IV SCH (22:26)
[2018-09-12] MEDS: MoRPHine SULFATE 4 MG/ML 1 ML CARP\\VIAL IV PRN ×4 (00:41→17:10)
[2018-09-12] MEDS ORDERED: VANCOMYCIN TROUGH ONE ×2 (01:30→13:30)
[2018-09-12] MEDS: PIPERACILLIN/TAZOBACTAM 3.375 GM in DEXTROSE 5% 100 ML IV SCH ×3 (04:57→19:48)
[2018-09-12] MEDS: KETOROLAC TROMETHAMINE 15 MG/ML VIAL IV SCH ×4 (04:57→22:29)
--- NOTE | 2018-09-12 11:05 | Infectious Disease Consult ---
Date of Consultation September 12, 2018 Assessment & Plan (1) Infection associated with internal left knee prosthesis: Surgical dressing intact left knee patient with infected left TKA status post removal of prosthesis and placement of antibiotic spacer. We will need to obtain culture results from [facility] to optimize his antibiotic therapy as will require at least 6 weeks of IV antibiotics total before reimplantation. Also requires ongoing treatment for his pneumonia, we will continue on vancomycin and Zosyn pending further culture results. Will follow. (2) Pneumonia: History of Present Illness Reason for Consultation: Pneumonia, septic arthritis left knee, recently hospitalized at [facility] Attending Physician: Renzo Montes History of Present Illness 58-year-old male with history of diabetes mellitus, alcohol abuse, prior IV drug abuse, who has remote history of left knee replacement, accompanied by need for multiple revision surgeries over the last several years, who was admitted to [facility] last month with pneumonia, found as well to have infected left prosthesis, and underwent removal of prosthesis and placement of antibiotic spacer. Patient was being treated with IV vancomycin and Zosyn, but left the hospital AGAINST MEDICAL ADVICE. He now returns for further care with increased shortness of breath and cough. Chest x-ray shows dense right-sided infiltrations. Patient currently on vancomycin and Zosyn. Cultures are pending. Allergies Allergy/AdvReac Type Severity Reaction Status Date / Time No Known Allergies Allergy Verified 09/10/18 06:28 Home Medications Home Medications Medication Instructions Recorded Confirmed Type Unobtainable 09/10/18 09/10/18 History Patient History Medical History PTSD (post-traumatic stress disorder) (Chronic) Heroin overdose (Chronic) Borderline diabetes High blood pressure Surgical History History of gastric bypass History of hernia repair Hx of foot surgery Status post left knee replacement With multiple revisions. Presently with antibiotic spacer in place Family History Other Diabetes Heart disease Social History Current Living Situation: Spouse Other Information That Helps Us Care for You: No Feels Safe at Home: Yes Safety Concerns: Feels Safe At This Time Smoking Status: Former smoker Tobacco Type: cigarettes Hx Alcohol Use: Yes Alcohol Intake Frequency: 3 or more drinks per day Hx Substance Use: Yes substance use type: former substance user, heroin and IV drugs Beliefs That Will Affect Care: None Communication Ability: Impaired Review of Systems All systems are reviewed and are negative except as per HPI Physical Exam 2 Vital Signs (Past 24 Hours): Last Vital Signs Temp 36.8 C 09/12/18 07:25 Pulse 68 09/12/18 07:46 Resp 13 09/12/18 07:25 BP 142/80 H 09/12/18 07:25 Pulse Ox 96 09/12/18 07:25 Constitutional: WD/WN, vitals as above comfortable; no acute distress Eyes: PERRL, conjunctivae normal, anicteric sclerae ENMT: external ear and nose normal, oropharynx normal Neck: trachea midline, no thyromegaly neck nontender Respiratory: no respiratory distress and no labored breathing Auscultation : + rhonchi (Right-sided) Cardiovascular: Rate/Rhythm: regular rate and regular rhythm Heart Sounds: normal S1 and normal S2; no gallop, no murmur and no cardiac rub Vessels: normal peripheral pulses; no JVD Gastrointestinal (Abdomen): normal bowel sounds, soft, nontender, no hepatosplenomegaly Musculoskeletal: Head/Neck/Chest: normocephalic and head atraumatic Extremities: no cyanosis and no clubbing Knee: + surgical incision (Intact) Skin: no rashes, warm and dry Neurologic: patellar DTR's 2+ bilat, sensation intact no focal motor deficits Psychiatric: A+Ox3, euthymic affect Orientation: cooperative Lymphatic: no cervical or axillary lymphadenopathy no inguinal lymphadenopathy Results & Data Laboratory Results Laboratory Results - last 48 hr 09/10/18 09/10/18 09/10/18 19:29 19:29 19:29 WBC RBC Hgb Hct MCV MCH MCHC RDW Std Deviation RDW Coeff of Leatha Plt Count MPV Immature Gran % (Auto) Neut % (Auto) Lymph % (Auto) Cole % (Auto) Eos % (Auto) Baso % (Auto) Immature Gran # (Auto) Neut # (Auto) Lymph # (Auto) Cole # (Auto) Eos # (Auto) Baso # (Auto) Giant Platelets Anisocytosis Sodium Potassium Chloride Carbon Dioxide Anion Gap BUN Creatinine Est Cr Clr Drug Dosing Est GFR ( Amer) Est GFR (Non-Af Amer) BUN/Creatinine Ratio Glucose POC Glucose Estimat Average Glucose Hemoglobin A1c Calcium Phosphorus 4.4 Prealbumin Ethyl Alcohol mg/dL < 3.0 Blood Type O Positive Antibody Screen NEGATIVE 09/10/18 09/11/18 09/11/18 22:30 05:30 05:30 WBC 10.45 RBC 2.68 L Hgb 7.9 L Hct 24.5 L MCV 91.4 MCH 29.5 MCHC 32.2 RDW Std Deviation 47.8 H RDW Coeff of Leatha 14.3 Plt Count 346 MPV 8.8 Immature Gran % (Auto) 0.4 Neut % (Auto) 78.7 Lymph % (Auto) 15.4 Cole % (Auto) 4.2 Eos % (Auto) 1.1 Baso % (Auto) 0.2 Immature Gran # (Auto) 0.04 H Neut # (Auto) 8.22 H Lymph # (Auto) 1.61 Cole # (Auto) 0.44 Eos # (Auto) 0.12 Baso # (Auto) 0.02 Giant Platelets 1+ Anisocytosis Present Sodium 141 Potassium 3.6 Chloride 104 Carbon Dioxide 30 Anion Gap 7.0 BUN 18 Creatinine 1.51 H Est Cr Clr Drug Dosing 65.7 Est GFR ( Amer) 59.0 Est GFR (Non-Af Amer) 50.9 BUN/Creatinine Ratio 11.9 Glucose 121 H POC Glucose 88 Estimat Average Glucose Hemoglobin A1c Calcium 7.6 L Phosphorus Prealbumin 5.6 L Ethyl Alcohol mg/dL Blood Type Antibody Screen 09/11/18 09/11/18 09/11/18 05:30 07:24 11:24 WBC RBC Hgb Hct MCV MCH MCHC RDW Std Deviation RDW Coeff of Leatha Plt Count MPV Immature Gran % (Auto) Neut % (Auto) Lymph % (Auto) Cole % (Auto) Eos % (Auto) Baso % (Auto) Immature Gran # (Auto) Neut # (Auto) Lymph # (Auto) Cole # (Auto) Eos # (Auto) Baso # (Auto) Giant Platelets Anisocytosis Sodium Potassium Chloride Carbon Dioxide Anion Gap BUN Creatinine Est Cr Clr Drug Dosing Est GFR ( Amer) Est GFR (Non-Af Amer) BUN/Creatinine Ratio Glucose POC Glucose 104 H 137 H Estimat Average Glucose 114 Hemoglobin A1c 5.6 Calcium Phosphorus Prealbumin Ethyl Alcohol mg/dL Blood Type Antibody Screen 09/11/18 09/11/18 16:39 20:36 WBC RBC Hgb Hct MCV MCH MCHC RDW Std Deviation RDW Coeff of Leatha Plt Count MPV Immature Gran % (Auto) Neut % (Auto) Lymph % (Auto) Cole % (Auto) Eos % (Auto) Baso % (Auto) Immature Gran # (Auto) Neut # (Auto) Lymph # (Auto) Cole # (Auto) Eos # (Auto) Baso # (Auto) Giant Platelets Anisocytosis Sodium Potassium Chloride Carbon Dioxide Anion Gap BUN Creatinine Est Cr Clr Drug Dosing Est GFR ( Amer) Est GFR (Non-Af Amer) BUN/Creatinine Ratio Glucose POC Glucose 122 H 141 H Estimat Average Glucose Hemoglobin A1c Calcium Phosphorus Prealbumin Ethyl Alcohol mg/dL Blood Type Antibody Screen Diagnostic Findings Microbiology 09/10/18 07:19 Blood Blood Culture - Preliminary No growth to date. 09/10/18 07:10 Blood Blood Culture - Preliminary No growth to date. 09/10/18 07:53 Urine,Straight Cath Urine Culture - Preliminary No growth - Less than 1,000 colonies/mL, Final report to follow. XR chest 1V portable CLINICAL HISTORY: Sepsis dyspnea COMPARISON STUDY: 12/29/2017 FINDINGS: Interval involvement of the consolidative infiltrate involving the right mid to lower lung. Peripheral infiltrative changes left hemithorax are also present. There is fullness the mid to superior mediastinum does on the basis of reactive adenopathy. Infiltrative change right pulmonary apex are present. IMPRESSION: 1. Diffuse consolidative infiltrate right lung. 2. Mediastinal and hilar fullness. 3. Developing peripheral infiltrate left lung. The above report was generated using voice recognition software. It may contain grammatical, syntax or spelling errors. Electronically signed by: Efren Lizarraga M.D. _ (1) Pneumonia Aspiration pneumonia type: Laterality: right Lung location: unspecified part of lung Pneumonia type: due to unspecified organism Qualified Code(s): J18.9 - Pneumonia, unspecified organism
[2018-09-12] MEDS: VANCOMYCIN HCL 1,500 MG in SODIUM CHLORIDE 0.9% 500 ML IV SCH (13:59)
--- NOTE | 2018-09-12 16:01 | Pharmacy Report ---
Pharmacy Abx Initial Consult - Date of Service September 12, 2018 - Pharmacy Dosing Scope Date of Consult: 09/10 Consultation requested by: Dr. Loja Pharmacy is consulted to initiate vancomycin and Zosyn IV/PO dosing therapy, order appropriate labs and adjust drug dose/frequency. - Subjective The patient is a 58 year old M admitted on 09/10/18 17:02. - Objective Height: 6 ft Weight: 97.3 kg Vital Signs (Past 12hrs): Vital Signs Temp Pulse Pulse Resp BP Pulse Ox 09/12/18 15:03 36.9 C 78 18 130/78 98 09/12/18 12:37 36.8 C 79 20 137/75 97 09/12/18 11:41 36.8 C 78 13 140/72 97 09/12/18 07:46 68 09/12/18 07:25 36.8 C 74 13 142/80 H 96 09/12/18 04:29 37.0 C 78 17 135/82 96 Micro Results: 09/10/18 07:53 Urine Culture - Final Urine,Straight Cath No growth - less than 1,000 colonies/mL. - Assessment & Plan Plan Vancomycin IV * Estimated PK Parameters: Vd 0.7 L/kg, Jason 0.067 hr-1, t1/2 10.3 hr * Loading dose: 2000 mg (21 mg/kg) * Original Maintenance dose: 1500 mg IV (16 mg/kg) every 10 hours. Changed to q16h dosing 09/11 based on yesterday's renal function * Goal trough level: 15 to 20 mcg/mL * Trough: 29.4 mcg/ml on 09/12; this level is supratherapeutic. Vancomycin has been placed on hold and a random level will be obtained tomorrow with AM labs. Piperacillin/tazobactam * 3.375 g bolus administered over 30 minutes, then 3.375 g IV extended infusion every 8 hours for CrCl greater than 20 mL/min Pharmacy will continue to follow and will adjust dose/frequency as necessary. Thank you.
[2018-09-12] MEDS: LACTOBACILLUS ACIDOPHILUS (FLORANEX) TAB PO SCH ×2 (17:09→20:48)
[2018-09-12] MEDS ORDERED: NALOXONE HCL 0.4 MG/1 ML VIAL/CARP IV PRN (17:34)
[2018-09-12] MEDS: SODIUM CHLORIDE 0.9% 1000ML 1,000 ML IV SCH (19:30)
[2018-09-12] MEDS: MoRPHine SULFATE PCA 50 MG/50ML IV PRN (19:38)
[2018-09-12] MEDS: LIDOCAINE 5% 1 PATCH TD SCH (20:47)
[2018-09-12] MEDS: ENOXAPARIN INJ 40 MG/0.4 ML SYR SQ SCH (20:48)
[2018-09-12] MEDS: ZOLPIDEM TARTRATE 5 MG TAB PO PRN (20:52)
--- NOTE | 2018-09-12 22:13 | Hospitalist Progress Note ---
Date of Service September 12, 2018 Assessment & Plan (1) Pneumonia: Chest x-ray with diffuse consolidative infiltrate in the right lung as well as developing peripheral infiltrate in the left lung. Patient is presently afebrile, hemodynamically stable, no respiratory distress, nonseptic in appearance. He does have leukocytosis, WBCs = 11.33. Pro-calcitonin 0.32. Recent prolonged hospital stay with risk for resistant organisms. * Awaiting cultures. * Will continue current antibiotics * Patient on vanco, zosyn (2) Septic arthritis: Per ER note, patient with history of left knee prosthesis initially placed in 2007 with multiple revisions. Recent prolonged and complicated hospital stay at [place], recent extraction of prosthesis with placement of antibiotic spacer. Patient left AMA yesterday. As above he is afebrile and hemodynamically stable. Dressing on left knee intact with no bleeding or drainage. Elevated ESR and CRP * Obtain records from [place] * Consult orthopedic surgery-greatly appreciate assistance with this interesting case * Empiric antibiotic coverage with vancomycin and Zosyn * Pain control with morphine 4 mg IV every 4 hours as needed * Consulted Infectious disease * Will continue empiric antibiotics: await cultures and sensitivities. * Obtained records, however they do not give sensitivities. * Ortho saw patient here and do not recommend surgery now. (3) Edema, peripheral: Patient with peripheral edema. Serum albumin of 0.9. 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 Question malnutrition as well as deconditioning after prolonged hospital stay and chronic illness. UA negative for protein. * Check prealbumin with a.m. labs * We will administer albumin IV x2 bottles * Consider nutrition consult when acute issues have resolved (4) Hypertension: Blood pressure is better controlled. Unable to obtain list of patient's outpatient medications * Continue to monitor * Labetalol 10 mg IV every 4 hours as needed for blood pressure greater than 180 /110 (5) Borderline diabetes: Blood sugar presently 74. * Fingersticks q. before meals and nightly * A1C is 5.6 (6) Gastric ulcer: Protonix 40 mg p.o. daily (7) Alcohol abuse: Patient with remote history of alcohol and heroin abuse. Per ER documentation he denies recent use of either substance. * Check U tox and alcohol level * Monitor for clinical evidence of withdrawal * Currently no exhibiting signs of withdrawal (8) Anemia: Patient with normochromic normocytic anemia. Hemoglobin of 7.5, hematocrit 23.7 with baseline of 10 and 30 respectively. Most likely secondary to postoperative blood loss. No active bleeding identified. Hemoglobin is at 7.9 will recheck tomorrow. (9) Leg weakness: Patient has 5/5 strength. Will order Physical therapy. However patient refused today Physical therapy. Ppx-Lovenox Code-full Spent 35 minutes with patient. . Subjective Patient is seen and examined. Patient reports that his pain is not controlled in his knee. He is asking to get an electric wheelchair (despite taking a bus from [facility] to [place]). Patient is concerned that he wont be able to be discharged and will in the hospital. Patient though denies any other symptoms of chest pain, nausea, vomiting, fever , chills. Constitutional: no fever and no body aches Eyes: no eye pain Ear, Nose, Mouth, Throat: no dizziness Respiratory: + cough Cardiovascular: no chest pain Gastrointestinal: no abdominal pain Musculoskeletal: + joint pain and + swelling Integumentary: no rash and no changing lesions Neurologic: no gait abnormality and no loss of sensation Psychiatric: no change in sex drive Endocrine: no fatigue Physical Exam 2 Vital Signs (Past 24 Hours): Last Vital Signs Temp 37.5 C 09/12/18 20:35 Pulse 78 09/12/18 20:35 Resp 18 09/12/18 20:35 BP 129/70 09/12/18 20:35 Pulse Ox 96 09/12/18 20:35 Physical Exam: General: Patient is awake, follows commands. NAD, Skin: Dry, flaking, no rashes or lesions HEENT: NC/AT, pupils small and reactive, anicteric sclera, conjunctiva without injection, external ear normal to inspection and nontender, nares patent, dry mucus membranes, poor dentition, no oropharyngeal lesions, neck supple, trachea midline, no LAD, no thyromegaly, no JVD Heart: +S1/S2, regular, no m/r/g Lungs: equal air entry bilaterally, no rales/rhonchi/wheezes Abd: +BS, soft, NT/ND, no masses/organomegaly/ascites Ext: warm, 2+ pulses in UE/LE bilaterally, 2+ nonpitting edema bilateral lower extremities, left knee with dressing in place, clean/dry/intact Neuro: AAOX 3 currently. (As per nurse, he had been waxing and waning) _ (1) Anemia Anemia type: unspecified type Bone marrow failure anemia type: Chronic kidney disease stage: Folate deficiency anemia type: Hemolytic anemia type: Iron deficiency anemia type: Other causes of anemia: Vitamin B12 deficiency anemia type: Qualified Code(s): D64.9 - Anemia, unspecified (2) Septic arthritis Laterality: left Septic arthritis location: knee Septic arthritis organism: due to unspecified organism Qualified Code(s): M00.9 - Pyogenic arthritis, unspecified (3) Leg weakness Laterality: bilateral Qualified Code(s): R29.898 - Other symptoms and signs involving the musculoskeletal system (4) Gastric ulcer Gastric ulcer chronicity: unspecified ulcer chronicity Gastric ulcer complication status: unspecified whether hemorrhage or perforation present Qualified Code(s): K25.9 - Gastric ulcer, unspecified as acute or chronic, without hemorrhage or perforation (5) Hypertension Hypertension type: essential hypertension Qualified Code(s): I10 - Essential (primary) hypertension (6) Pneumonia Aspiration pneumonia type: Laterality: right Lung location: unspecified part of lung Pneumonia type: due to unspecified organism Qualified Code(s): J18.9 - Pneumonia, unspecified organism
[2018-09-13] MEDS: PIPERACILLIN/TAZOBACTAM 3.375 GM in DEXTROSE 5% 100 ML IV SCH ×3 (03:35→19:30)
[2018-09-13] MEDS: KETOROLAC TROMETHAMINE 15 MG/ML VIAL IV SCH ×4 (03:35→22:52)
[2018-09-13 06:06] LABS: Creatinine Clr Calc Pharmacy 69.3 ml/min; Est GFR (African American) 62.5; Est GFR (Non-African American) 53.9
[2018-09-13 06:14] LABS: Hematocrit (blood only) 21.8 % (42-52); Hemoglobin 6.9 g/dL (14.0-18.0); Mean Corpuscular Hgb Conc 31.7 g/dL (32-36); Mean Corpuscular Volume 91.2 fL (80-100); Mean Platelet Volume 8.4 fL (7.4-10.4); Platelet Count 389 K/uL (130-400); RDW Coefficient of Variation 14.1 % (11.5-14.5); RDW Standard Deviation 48.1 fL (36.4-46.3); Red Blood Count 2.39 M/uL (4.7-6.1)
[2018-09-13] MEDS: ONDANSETRON INJ 2 MG/ML 2 ML VIAL IV PRN (08:37)
--- NOTE | 2018-09-13 08:37 | Pharmacy Report ---
Pharmacy Abx Dose Short Note - Date of Service September 13, 2018 - Assessment & Plan Assessment * 58 year old M receiving vancomycin and Zosyn empirically for treatment of pneumonia/septic arthritis * Day # 4 of antimicrobial therapy Plan Vancomycin * Random level of 28.1 mcg/mL is supratherapeutic * Vancomycin order has been temporarily discontinued until serum level becomes therapeutic * Goal trough level: 15 to 20 mcg/mL * Random level ordered for: 09/14 with AM labs Piperacillin/tazobactam * 3.375 g bolus administered over 30 minutes, then 3.375 g IV extended infusion every 8 hours for CrCl greater than 20 mL/min Pharmacy will continue to follow and will adjust dose/frequency as necessary. Thank you.
[2018-09-13] MEDS: LACTOBACILLUS ACIDOPHILUS (FLORANEX) TAB PO SCH ×4 (08:38→20:48)
[2018-09-13] MEDS ORDERED: LORazepam 1 MG TAB PO STA (18:59)
[2018-09-13] MEDS: SODIUM CHLORIDE 0.9% 1000ML 1,000 ML IV SCH (19:26)
[2018-09-13] MEDS: LIDOCAINE 5% 1 PATCH TD SCH (20:25)
[2018-09-13] MEDS: LORazepam 1 MG TAB PO PRN (20:47)
[2018-09-13] MEDS: ENOXAPARIN INJ 40 MG/0.4 ML SYR SQ SCH (20:48)
--- NOTE | 2018-09-13 22:55 | Hospitalist Progress Note ---
Date of Service September 13, 2018 Assessment & Plan (1) Pneumonia: Chest x-ray with diffuse consolidative infiltrate in the right lung as well as developing peripheral infiltrate in the left lung. Patient is presently afebrile, hemodynamically stable, no respiratory distress, nonseptic in appearance. He does have leukocytosis, WBCs = 11.33. Pro-calcitonin 0.32. Recent prolonged hospital stay with risk for resistant organisms. * * Awaiting cultures. * Will continue current antibiotics: vanco and zosyn (started on 09/10) (2) Septic arthritis: Septic arthritis: Per ER note, patient with history of left knee prosthesis initially placed in 2007 with multiple revisions. Recent prolonged and complicated hospital stay at [place], recent extraction of prosthesis with placement of antibiotic spacer. Patient left AMA yesterday. As above he is afebrile and hemodynamically stable. Dressing on left knee intact with no bleeding or drainage. Elevated ESR and CRP Obtained records from [place] Consult orthopedic surgery-greatly appreciate assistance with this interesting case Empiric antibiotic coverage with vancomycin and Zosyn Pain control with morphine 4 mg IV every 4 hours as needed Consulted Infectious disease Will continue empiric antibiotics: await cultures and sensitivities. Reviewed records, no sensitivites in in records from [place], also no daily progress notes or discharge summary Ortho saw patient here and do not recommend surgery now. Placed on CORPORATE [employer]IST pump, will see daily requirements of pain medicine. and will switch to oral over the weekend. (3) Edema, peripheral: Patient with peripheral edema. Serum albumin of 0.9. 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 Question malnutrition as well as deconditioning after prolonged hospital stay and chronic illness. UA negative for protein. will place nutrition consult for sunday. (4) Hypertension: Blood pressure is at goal. Unable to obtain list of patient's outpatient medications * Continue to monitor * Patient has not required labetalol * Labetalol 10 mg IV every 4 hours as needed for blood pressure greater than 180 /110 * (5) Borderline diabetes: Blood sugar presently 74. * Fingersticks q. before meals and nightly * A1C is 5.6 * (6) Gastric ulcer: Protonix 40 mg p.o. daily (7) Alcohol abuse: Patient with remote history of alcohol and heroin abuse. Per ER documentation he denies recent use of either substance. * Check U tox and alcohol level * Monitor for clinical evidence of withdrawal * Currently no exhibiting signs of withdrawal (8) Anemia: Patient's hemoglobin is 6.9 Patient required transfusion. Will continue to monitor daily hemoglobin. * (9) Leg weakness: Patient has 5/5 strength. Will order Physical therapy. However patient refused again Physical therapy. Ppx-Lovenox Code-full Spent 35 minutes with patient. . Subjective Patient reports earlier this week he had his prosthesis removed and antibiotic spacer placed. He reports that he continues to have pain in his affected knee. Patient reports his pain is better controlled with the CORPORATE [employer]IST pump. Patient is concerned about being able to be to get a wheelchair. He states though that he again refused physical therapy. He alos notes that his BMs are more solid today. Respiratory: + cough Musculoskeletal: + joint pain Physical Exam 2 Vital Signs (Past 24 Hours): Last Vital Signs Temp 37.1 C 09/13/18 20:56 Pulse 73 09/13/18 20:56 Resp 18 09/13/18 20:56 BP 147/82 H 09/13/18 20:56 Pulse Ox 97 09/13/18 20:56 Physical Exam: General: Patient is awake, follows commands. NAD, Skin: Dry, flaking, no rashes or lesions HEENT: NC/AT, pupils small and reactive, anicteric sclera, conjunctiva without injection, external ear normal to inspection and nontender, nares patent, dry mucus membranes, poor dentition, no oropharyngeal lesions, neck supple, trachea midline, no LAD, no thyromegaly, no JVD Heart: +S1/S2, regular, no m/r/g Lungs: equal air entry bilaterally, no rales/rhonchi/wheezes Abd: +BS, soft, NT/ND, no masses/organomegaly/ascites Ext: warm, 2+ pulses in UE/LE bilaterally, 2+ nonpitting edema bilateral lower extremities, left knee with dressing in place, clean/dry/intact Neuro: AAOX 3 currently. No longer waxing and waning. _ (1) Anemia Anemia type: unspecified type Bone marrow failure anemia type: Chronic kidney disease stage: Folate deficiency anemia type: Hemolytic anemia type: Iron deficiency anemia type: Other causes of anemia: Vitamin B12 deficiency anemia type: Qualified Code(s): D64.9 - Anemia, unspecified (2) Septic arthritis Laterality: left Septic arthritis location: knee Septic arthritis organism: due to unspecified organism Qualified Code(s): M00.9 - Pyogenic arthritis, unspecified (3) Leg weakness Laterality: bilateral Qualified Code(s): R29.898 - Other symptoms and signs involving the musculoskeletal system (4) Gastric ulcer Gastric ulcer chronicity: unspecified ulcer chronicity Gastric ulcer complication status: unspecified whether hemorrhage or perforation present Qualified Code(s): K25.9 - Gastric ulcer, unspecified as acute or chronic, without hemorrhage or perforation (5) Hypertension Hypertension type: essential hypertension Qualified Code(s): I10 - Essential (primary) hypertension (6) Pneumonia Aspiration pneumonia type: Laterality: right Lung location: unspecified part of lung Pneumonia type: due to unspecified organism Qualified Code(s): J18.9 - Pneumonia, unspecified organism
[2018-09-13] MEDS: MoRPHine SULFATE PCA 50 MG/50ML IV PRN (23:59)
[2018-09-14] MEDS: PIPERACILLIN/TAZOBACTAM 3.375 GM in DEXTROSE 5% 100 ML IV SCH ×3 (05:29→20:44)
[2018-09-14] MEDS: KETOROLAC TROMETHAMINE 15 MG/ML VIAL IV SCH ×4 (05:34→21:01)
[2018-09-14] MEDS: LACTOBACILLUS ACIDOPHILUS (FLORANEX) TAB PO SCH ×4 (08:24→20:45)
[2018-09-14 11:46] LABS: Creatinine Clr Calc Pharmacy 67.8 ml/min; Est GFR (African American) 59.5; Est GFR (Non-African American) 51.3
--- NOTE | 2018-09-14 13:19 | Pharmacy Report ---
Pharmacy Abx Dose Short Note - Date of Service September 14, 2018 - Assessment & Plan Assessment 58 year old M receiving Vancomycin 1500mg Q--hr IV for treatment of septic arthritis and pneumonia. Day # 5 of antimicrobial therapy. Blood cultures x2 from 09/10 NGTD Sputum culture from 09/13 pending. Laboratory Tests 09/14/18 06:47 Random Vancomycin 20.6 Plan Vancomycin * Random level of 20.6 mcg/mL is slightly supratherapeutic. * Last dose of Vancomycin was 1500mg IV at 1400 on 09/12. * Patient's clearance appears to be significantly longer than population kinetics would estimate. SCr remains elevated (1.44 >> 1.5). Previous inpatient data suggest a renal basline ~100 mL/min, with SCr ~0.9. * At this time it does not seem feasible to resume scheduled dosing. * Give 1000mg IV x1 to prevent subtherapeutic levels over the next 12-24 hrs. Will recheck another random level with AM Labs and redose if needed. * Goal trough level : 15 to 20 mcg/mL * Random level ordered for: 09/15/18 with AM labs. Piperacillin/Tazobactam * Continue 3.375gm IV Q8hr for CrCl >20 mL/min. Pharmacy will continue to follow and will adjust dose/frequency as necessary. Thank you.
[2018-09-14] MEDS ORDERED: VANCOMYCIN HCL 1,000 MG in SODIUM CHLORIDE 0.9% 250 ML IV ONE (14:00)
[2018-09-14 16:56] LABS: Hematocrit (blood only) 25.9 % (42-52); Hemoglobin 8.3 g/dL (14.0-18.0)
[2018-09-14] MEDS: OXYCODONE HCL IR 5 MG TAB (IMMEDIATE RELEASE) PO SCH (19:27)
[2018-09-14] MEDS: SODIUM CHLORIDE 0.9% 1000ML 1,000 ML IV SCH (19:29)
[2018-09-14] MEDS: ENOXAPARIN INJ 40 MG/0.4 ML SYR SQ SCH (20:44)
[2018-09-14] MEDS: LORazepam 1 MG TAB PO PRN (20:44)
[2018-09-14] MEDS: LIDOCAINE 5% 1 PATCH TD SCH (20:45)
--- NOTE | 2018-09-14 23:04 | Hospitalist Progress Note ---
Date of Service September 14, 2018 Assessment & Plan (1) Pneumonia: Chest x-ray with diffuse consolidative infiltrate in the right lung as well as developing peripheral infiltrate in the left lung. Patient is presently afebrile, hemodynamically stable, no respiratory distress, nonseptic in appearance. He does have leukocytosis, WBCs = 11.33. Pro-calcitonin 0.32. Recent prolonged hospital stay with risk for resistant organisms. * * Awaiting cultures. * Will continue current antibiotics: vanco and zosyn (started on 09/10) * WBC is down to 9.5 (2) Septic arthritis: Consult orthopedic surgery-greatly appreciate assistance with this interesting case Empiric antibiotic coverage with vancomycin and Zosyn Consulted Infectious disease Will continue empiric antibiotics: await cultures and sensitivities. Reviewed records, no sensitivites in in records from [place], also no daily progress notes or discharge summary Ortho saw patient here and do not recommend surgery now. Placed on PIPE SETTER pump, patient has required roughly 48 mg over 24 hour period. Patient states this does not control his pain medicine. Will have patient on oxycodone 10 mg PO Q6H, and will see how he is in AM. Patient will also require long term care administrator antibiotics. (3) Edema, peripheral: Patient with peripheral edema. Serum albumin of 0.9. 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 Question malnutrition as well as deconditioning after prolonged hospital stay and chronic illness. UA negative for protein. will place nutrition consult for sunday. (4) Hypertension: Blood pressure has been gradually elevated but has not reach the threshold of requiring labetalol. May consider natty inhibitor in AM. * Patient has not required any PRN doses of labetalol * Labetalol 10 mg IV every 4 hours as needed for blood pressure greater than 180 /110 * (5) Borderline diabetes: Blood surgars have been routinely elevated. Will continue to monitor. Interesting his A1C is 5.6 Perhaps this may be a false negative. will contiue to followup with his blood sugars, but if they continue t be elevated, will need to place on sliding scale. * (6) Gastric ulcer: Protonix 40 mg p.o. daily (7) Alcohol abuse: Patient with remote history of alcohol and heroin abuse. Per ER documentation he denies recent use of either substance. * Check U tox and alcohol level * Monitor for clinical evidence of withdrawal * Currently no exhibiting signs of withdrawal (8) Anemia: Patient's hemoglobin is 8.3 S/P transfusion. will continue to monitor. May order workup in AM . Will continue to monitor daily hemoglobin. * (9) Leg weakness: Patient has 5/5 strength. Will order Physical therapy. However patient refused again Physical therapy. Ppx-Lovenox Code-full Spent 35 minutes in management of patient. This included discussing with patient on pain medicine. . Subjective Patient reports earlier this week he had his prosthesis removed and antibiotic spacer placed. He reports that he continues to have pain in his affected knee. He states his pain has not been adequately controlled despite being on PIPE SETTER pump. Patient has only obtain 7 doses in past 4 hours. Patient states that he has been on high doses of pain medicine in the past. He also states that he had a loose stool again today. D/W nurse loose stools but formed. She would not call it diarrrhea. Respiratory: + cough Musculoskeletal: + joint pain Physical Exam 2 Vital Signs (Past 24 Hours): Last Vital Signs Temp 36.5 C 09/14/18 19:30 Pulse 77 09/14/18 19:30 Resp 18 09/14/18 19:30 BP 154/91 H 09/14/18 19:30 Pulse Ox 98 09/14/18 19:30 Physical Exam: General: Patient is awake, follows commands. NAD, Skin: Dry, flaking, no rashes or lesions HEENT: NC/AT, pupils small and reactive, anicteric sclera, conjunctiva without injection, external ear normal to inspection and nontender, nares patent, dry mucus membranes, poor dentition, no oropharyngeal lesions, neck supple, trachea midline, no LAD, no thyromegaly, no JVD Heart: +S1/S2, regular, no m/r/g Lungs: equal air entry bilaterally, no rales/rhonchi/wheezes Abd: +BS, soft, NT/ND, no masses/organomegaly/ascites Ext: warm, 2+ pulses in UE/LE bilaterally, 2+ nonpitting edema bilateral lower extremities, left knee with dressing in place, clean/dry/intact Neuro: AAOX 3 currently. No longer waxing and waning. _ (1) Anemia Anemia type: unspecified type Bone marrow failure anemia type: Chronic kidney disease stage: Folate deficiency anemia type: Hemolytic anemia type: Iron deficiency anemia type: Other causes of anemia: Vitamin B12 deficiency anemia type: Qualified Code(s): D64.9 - Anemia, unspecified (2) Septic arthritis Laterality: left Septic arthritis location: knee Septic arthritis organism: due to unspecified organism Qualified Code(s): M00.9 - Pyogenic arthritis, unspecified (3) Leg weakness Laterality: bilateral Qualified Code(s): R29.898 - Other symptoms and signs involving the musculoskeletal system (4) Gastric ulcer Gastric ulcer chronicity: unspecified ulcer chronicity Gastric ulcer complication status: unspecified whether hemorrhage or perforation present Qualified Code(s): K25.9 - Gastric ulcer, unspecified as acute or chronic, without hemorrhage or perforation (5) Hypertension Hypertension type: essential hypertension Qualified Code(s): I10 - Essential (primary) hypertension (6) Pneumonia Aspiration pneumonia type: Laterality: right Lung location: unspecified part of lung Pneumonia type: due to unspecified organism Qualified Code(s): J18.9 - Pneumonia, unspecified organism
[2018-09-14] MEDS: MoRPHine SULFATE PCA 50 MG/50ML IV PRN (23:28)
[2018-09-15] MEDS: OXYCODONE HCL IR 5 MG TAB (IMMEDIATE RELEASE) PO SCH ×4 (01:31→19:34)
[2018-09-15] MEDS: PIPERACILLIN/TAZOBACTAM 3.375 GM in DEXTROSE 5% 100 ML IV SCH ×3 (04:24→19:33)
[2018-09-15] MEDS: KETOROLAC TROMETHAMINE 15 MG/ML VIAL IV SCH ×4 (04:24→22:34)
[2018-09-15] MEDS: LACTOBACILLUS ACIDOPHILUS (FLORANEX) TAB PO SCH ×4 (07:29→20:22)
[2018-09-15 07:33] LABS: Creatinine Clr Calc Pharmacy 69.2 ml/min; Est GFR (African American) 59.9; Est GFR (Non-African American) 51.7
[2018-09-15] MEDS ORDERED: VANCOMYCIN HCL 1,250 MG in SODIUM CHLORIDE 0.9% 250 ML IV SCH (10:00)
--- NOTE | 2018-09-15 10:29 | Pharmacy Report ---
Pharmacy Abx Dose Short Note - Date of Service September 15, 2018 - Assessment & Plan Assessment 58 year old M receiving Vancomycin and Zosyn for treatment of septic arthritis and pneumonia. Day # 7 of antimicrobial therapy. Cultures negative to date. Laboratory Tests 09/15/18 06:34 Random Vancomycin 18.9 Plan Vancomycin * Random level of 18.9 mcg/mL is therapeutic -- will try to resume scheduled dosing. * Based on previously calculated maintenance dose (1500mg q16h) and random levels over the last 48 hours, anticipate that patient needs lower dose with extended dosing interval. * Start with 1250 mg IV every 24 hours - will give initial dose and then put on hold until trough can be assessed tomorrow morning. * Goal trough level : 15 to 20 mcg/mL * Trough level ordered for: 09/16/18 before 1000 dose. Note this is before the "third" dose and may not be truly reflective of steady state. Goal is to assess for accumulation/supratherapeutic levels. Pharmacy will continue to follow and will adjust dose/frequency as necessary. Thank you.
[2018-09-15] MEDS ORDERED: PHARMACY GLYCEMIC MGMT CONSULT PRN (11:05)
[2018-09-15 11:06] LABS: Basophils # (auto) 0.03 K/uL (0-0.2); Basophils % (auto) 0.3 %; Eosinophils # (auto) 0.14 K/uL (0-0.5); Eosinophils % (auto) 1.3 %; Hematocrit (blood only) 26.2 % (42-52); Hemoglobin 8.5 g/dL (14.0-18.0); Immature Granulocytes # (auto) 0.04 K/uL (0.00-0.02); Immature Granulocytes % (auto) 0.4 %; Lymphocytes # (auto) 2.26 K/uL (1.2-3.4); Lymphocytes % (auto) 21.6 %; Mean Corpuscular Hgb Conc 32.4 g/dL (32-36); Mean Corpuscular Volume 91.3 fL (80-100); Mean Platelet Volume 7.9 fL (7.4-10.4); Monocytes # (auto) 0.53 K/uL (0.11-0.59); Monocytes % (auto) 5.1 %; Neutrophils # (auto) 7.47 K/uL (1.4-6.5); Neutrophils % (auto) 71.3 %; Platelet Count 371 K/uL (130-400); RDW Coefficient of Variation 14.5 % (11.5-14.5); RDW Standard Deviation 48.6 fL (36.4-46.3); Red Blood Count 2.87 M/uL (4.7-6.1); White Blood Count 10.47 K/uL (4.8-10.8)
[2018-09-15] MEDS ORDERED: GLUCOSE 10 TABS/TUBE PO PRN (11:09)
[2018-09-15] MEDS ORDERED: GLUCOSE 40% GEL 15 GM TUBE PO PRN (11:09)
[2018-09-15] MEDS ORDERED: GLUCAGON FOR INJ 1 MG VIAL IM PRN (11:09)
[2018-09-15] MEDS ORDERED: DEXTROSE 50% 50 ML SYRINGE IV PRN (11:09)
[2018-09-15 11:29] LABS: BUN Creatinine Ratio 11.8 (10-20); Calcium 7.4 mg/dl (8.5-10.1); Creatinine Clr Calc Pharmacy 67.4 ml/min; Est GFR (African American) 58.1; Est GFR (Non-African American) 50.1; Potassium 4.1 mmol/L (3.5-5.1)
[2018-09-15 11:32] LABS: RBC Morphology Unremarkable
[2018-09-15 11:34] LABS: Ferritin 425.5 ng/ml (8-388)
[2018-09-15] MEDS: MoRPHine SULFATE PCA 50 MG/50ML IV PRN (11:37)
--- NOTE | 2018-09-15 11:42 | Hospitalist Progress Note ---
Date of Service September 15, 2018 Assessment & Plan (1) Pneumonia: Chest x-ray with diffuse consolidative infiltrate in the right lung as well as developing peripheral infiltrate in the left lung. Patient is presently afebrile, hemodynamically stable, no respiratory distress, nonseptic in appearance. He does have leukocytosis, WBCs = 11.33. Pro-calcitonin 0.32. Recent prolonged hospital stay with risk for resistant organisms. * * Awaiting cultures. * Will continue current antibiotics: vanco and zosyn (started on 09/10) * WBC remains below 11. (2) Septic arthritis: Consult orthopedic surgery-greatly appreciate assistance with this interesting case Empiric antibiotic coverage with vancomycin and Zosyn Consulted Infectious disease Will continue empiric antibiotics: await cultures and sensitivities. Reviewed records, no sensitivites in in records from [place], also no daily progress notes or discharge summary Ortho saw patient here and do not recommend surgery now. Pain appears to be better controlled now that patient is on oxycodone 10mg PO Q6H. 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 will calculate his requirement of his morphine throughout the day. Explained to patient that he will not be on morphine GRAIN ELEVATOR SUPERINTENDENT at home. (3) Edema, peripheral: Patient with peripheral edema. Serum albumin of 0.9. 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 Question malnutrition as well as deconditioning after prolonged hospital stay and chronic illness. UA negative for protein. will place nutrition consult for sunday. (4) Hypertension: Blood pressure has been gradually elevated but has not reach the threshold of requiring labetalol. May consider natty inhibitor in AM. * Patient has not required any PRN doses of labetalol * Labetalol 10 mg IV every 4 hours as needed for blood pressure greater than 180 /110 (5) Borderline diabetes: Blood surgars have been routinely elevated above 200. Will continue to monitor. Interesting his A1C is 5.6 Perhaps this may be a false negative. consulted glycemic control * (6) Gastric ulcer: Protonix 40 mg p.o. daily (7) Alcohol abuse: Patient with remote history of alcohol and heroin abuse. Per ER documentation he denies recent use of either substance. * Check U tox and alcohol level * Monitor for clinical evidence of withdrawal * Currently no exhibiting signs of withdrawal (8) Anemia: Patient's hemoglobin is 8.5 S/P transfusion. It has remained stable. Will continue to monitor daily hemoglobin. * (9) Leg weakness: Patient has 5/5 strength. Will order Physical therapy. However patient refused again Physical therapy. Ppx-Lovenox Code-full Spent 35 minutes in management of patient. 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 Patient will require about 6 weeks worth. Awaiting input. . Subjective Patient reports feeling better today. He states his pain is now 6-7 out of 10 instead of 10 out 10 like yesterday. He states that the round the clock oxycodone have been helping with his pain. He states that this level of pain is tolerable and he can live with this. Respiratory: + cough Musculoskeletal: + joint pain Physical Exam 2 Vital Signs (Past 24 Hours): Last Vital Signs Temp 36.8 C 09/15/18 07:35 Pulse 73 09/15/18 07:35 Resp 20 09/15/18 07:35 BP 159/93 H 09/15/18 07:35 Pulse Ox 100 09/15/18 07:35 Physical Exam: General: Patient is awake, follows commands. NAD, Skin: Dry, flaking, no rashes or lesions HEENT: NC/AT, pupils small and reactive, anicteric sclera, conjunctiva without injection, external ear normal to inspection and nontender, nares patent, dry mucus membranes, poor dentition, no oropharyngeal lesions, neck supple, trachea midline, no LAD, no thyromegaly, no JVD Heart: +S1/S2, regular, no m/r/g Lungs: equal air entry bilaterally, no rales/rhonchi/wheezes Abd: +BS, soft, NT/ND, no masses/organomegaly/ascites Ext: warm, 2+ pulses in UE/LE bilaterally, decreased swelling today in lower extremities, left knee with dressing in place, clean/dry/intact. toes are dry Neuro: AAOX 3 currently. No longer waxing and waning. _ (1) Pneumonia Aspiration pneumonia type: Laterality: right Lung location: unspecified part of lung Pneumonia type: due to unspecified organism Qualified Code(s): J18.9 - Pneumonia, unspecified organism (2) Septic arthritis Laterality: left Septic arthritis location: knee Septic arthritis organism: due to unspecified organism Qualified Code(s): M00.9 - Pyogenic arthritis, unspecified (3) Hypertension Hypertension type: essential hypertension Qualified Code(s): I10 - Essential (primary) hypertension (4) Gastric ulcer Gastric ulcer chronicity: unspecified ulcer chronicity Gastric ulcer complication status: unspecified whether hemorrhage or perforation present Qualified Code(s): K25.9 - Gastric ulcer, unspecified as acute or chronic, without hemorrhage or perforation (5) Anemia Anemia type: unspecified type Iron deficiency anemia type: Vitamin B12 deficiency anemia type: Folate deficiency anemia type: Bone marrow failure anemia type: Hemolytic anemia type: Other causes of anemia: Chronic kidney disease stage: Qualified Code(s): D64.9 - Anemia, unspecified (6) Leg weakness Laterality: bilateral Qualified Code(s): R29.898 - Other symptoms and signs involving the musculoskeletal system
[2018-09-15 11:53] LABS: Folate (Folic Acid) 8.27 ng/ml (>5.38)
--- NOTE | 2018-09-15 12:31 | Pharmacy Report ---
Glycemic Control Consultation - Date of Service September 15, 2018 - Scope Scope: Glycemic Pharmacist consulted by Dr Montes on 09/15/18 for glycemic control and to write orders per [facility] inpatient glycemic control protocol - Objective Weight: 104.7 kg Accuchecks BSG (last 24hrs): 09/14/18 09/14/18 09/15/18 16:25 20:17 10:50 Glucose 80 POC Glucose 353 H* 246 H 09/15/18 12:00 Glucose POC Glucose 141 H Laboratory Data (last 24hrs): 09/15/18 09/15/18 06:34 10:50 Potassium 4.1 Carbon Dioxide 27 Anion Gap 7.0 Creatinine 1.49 H 1.53 H Est Cr Clr Drug Dosing 69.2 67.4 HbA1c: Hemoglobin A1c 5.6 % (4.5-5.6) 09/11/18 05:30 - Recent Pertinent Medications Outpatient Anti-diabetic Regimen: * N/A Risk Factors for Insulin Resistance: * Infection * Diet - Assessment & Plan Assessment & Plan: ASSESSMENT: * 58yo male identified with hyperglycemia secondary to stress and infection * Unsure of why BSGs so markedly elevated last evening. * A1c is normal, borderline pre-diabetes * HbA1c of 5.7-6.4% indicates "pre-diabetes" --> ADA recommendation is to institute diabetes and atherosclerosis prevention * Pt is not on any antidiabetic agents as an outpatient, insulin naive. * Will start weight based SQ basal bolus insulin regimen and titrate based on BSG trends. * Typically, at lower A1cs post-prandial hyperglycemia is most problematic. Will start CF/CR and add basal insulin if BSG >180 mg/dl this evening * Goal is to maintain BSGs <200 mg/dl (ideally <150 mg/dl) to prevent infectious complications PLAN FOR INPATIENT GLYCEMIC CONTROL: * Basal insulin * Lantus SQ Q24hrs - dose based on BSG * BSG 180mg/dl or below --> 0 units * BSG above 180mg/dl --> 20 units (0.2 units/kg) * Bolus insulin * NovoLog per scale ACHS or Q6hrs while NPO * Goal Range: Low 110 mg/dL - High 140 mg/dL * Correction Factor: 20 mg/dL/unit * Nutritional / Prandial insulin per carb ratio of 1 unit per 7 grams CHO consumed * Please note that the plan above was derived based on current level of insulin resistance and hospital stress. These recommendations are appropriate for inpatient admission only. Plan of care upon discharge will need to be reassessed to avoid potential outpatient hypo/hyperglycemia. Thank you.
[2018-09-15] MEDS: INSULIN ASPART 100 UNITS/ML 3 ML PEN SC SCH ×3 (12:50→20:22)
[2018-09-15] MEDS: CARBOHYDRATES FOR HYPOGLYCEMIA PO PRN ×2 (14:34→16:24)
[2018-09-15] MEDS ORDERED: INSULIN GLARGINE SOLOSTAR 100 UNITS/ML 3 ML PEN SC SCH (16:30)
[2018-09-15 17:57] LABS: Amphetamines, Ur NEGATIVE NG/ML (CUTOFF=500); Amphetemines Ur GC/MS DNR NG/ML (CUTOFF=250); Barbiturates, Urine NEGATIVE NG/ML (CUTOFF=300); Benzodiazepines,Ur POSITIVE NG/ML (CUTOFF=100); Cocaine, Urine NEGATIVE NG/ML (CUTOFF=150); Cocaine,Ur GC/MS DNR NG/ML (CUTOFF=100); Methadone, Ur GC/MS DNR NG/ML (CUTOFF=100); Methadone, Urine NEGATIVE NG/ML (CUTOFF=100); Opiates, Urine POSITIVE NG/ML (CUTOFF=100); Phencyclidine, Ur NEGATIVE NG/ML (CUTOFF=25); Phencyclidine,Ur GC/MS DNR NG/ML (CUTOFF=25)
[2018-09-15] MEDS: SODIUM CHLORIDE 0.9% 1000ML 1,000 ML IV SCH (19:34)
[2018-09-15] MEDS: LORazepam 1 MG TAB PO PRN (19:34)
[2018-09-15] MEDS: ENOXAPARIN INJ 40 MG/0.4 ML SYR SQ SCH (20:22)
[2018-09-15] MEDS: LIDOCAINE 5% 1 PATCH TD SCH (20:22)
[2018-09-16] MEDS: OXYCODONE HCL IR 5 MG TAB (IMMEDIATE RELEASE) PO SCH ×4 (01:32→19:06)
[2018-09-16] MEDS: KETOROLAC TROMETHAMINE 15 MG/ML VIAL IV SCH ×4 (04:04→17:08)
[2018-09-16] MEDS: PIPERACILLIN/TAZOBACTAM 3.375 GM in DEXTROSE 5% 100 ML IV SCH ×3 (04:18→20:49)
[2018-09-16] MEDS: LACTOBACILLUS ACIDOPHILUS (FLORANEX) TAB PO SCH ×5 (08:16→20:51)
[2018-09-16] MEDS: INSULIN ASPART 100 UNITS/ML 3 ML PEN SC SCH ×5 (08:43→20:54)
[2018-09-16] MEDS ORDERED: VANCOMYCIN TROUGH ONE (09:30)
[2018-09-16 09:33] LABS: Hematocrit (blood only) 24.9 % (42-52); Hemoglobin 7.9 g/dL (14.0-18.0); Mean Corpuscular Hgb Conc 31.7 g/dL (32-36); Mean Corpuscular Volume 92.2 fL (80-100); Mean Platelet Volume 8.2 fL (7.4-10.4); Platelet Count 382 K/uL (130-400); RDW Coefficient of Variation 14.8 % (11.5-14.5); RDW Standard Deviation 49.8 fL (36.4-46.3); White Blood Count 11.23 K/uL (4.8-10.8)
[2018-09-16 10:08] LABS: Creatinine Clr Calc Pharmacy 58.4 ml/min; Est GFR (Non-African American) 41.4
[2018-09-16] MEDS ORDERED: VANCOMYCIN HCL 1,000 MG in SODIUM CHLORIDE 0.9% 250 ML IV STA (10:36)
[2018-09-16] MEDS ORDERED: VANCOMYCIN HCL 1,000 MG in SODIUM CHLORIDE 0.9% 500 ML IV ONE (10:45)
--- NOTE | 2018-09-16 10:50 | Pharmacy Report ---
Pharmacy Abx Dose Short Note - Date of Service September 16, 2018 - Assessment & Plan Assessment 58 year old M receiving IV Vancomycin and Zosyn for treatment of septic arthritis, pneumonia Day # 7 of antimicrobial therapy. Plan Vancomycin * Random level of 12.9 mcg/mL is subtherapeutic * Last random Vancomycin level was 18.9 on 09/15 @ 0634. Calculated patient- specific pharmacokinetics from random levels. Estimated Ke ~0.014/hr with estimated half-life 49 hours... which is a lot longer than previously anticipated. * Patient's last dose of Vancomycin was actually 1000mg given on 07/15 @ 9337 ( due to nursing error... patient did not receive 1250mg dose scheduled yesterday) . Patient subtherapeutic due to missed dose. However, in retrospect with regards to worsening renal function, 1250mg likely too high of a dose. * Give Vancomycin 1000mg IV x 1 as patient due for dose today * Goal trough level for septic arthritis/pneumonia : 15 to 20 mcg/mL * Random level ordered for: 09/17/18 @ 1200 to determine if q24 dosing feasible If not, will need to continue dosing empirically based on random levels due to changing renal function and recent supratherapeutic levels. Pharmacy will continue to follow and will adjust dose/frequency as necessary. Thank you.
--- NOTE | 2018-09-16 10:58 | Pharmacy Report ---
Pharmacy Glycemic Short Note 2 - Date of Service September 16, 2018 - Glycemic Short BSG Results (Last 24 hours): 09/15/18 09/15/18 09/15/18 10:50 12:00 14:31 Glucose 80 POC Glucose 141 H 41 L* 09/15/18 09/15/18 09/15/18 14:47 16:21 16:45 Glucose POC Glucose 67 L* 64 L* 60 L* 09/15/18 09/15/18 09/16/18 17:34 20:05 05:31 Glucose POC Glucose 98 122 H 90 09/16/18 08:08 Glucose POC Glucose 78 ASSESSMENT: 12-10: * Patient required about 14 units of insulin yesterday - all correctional insulin * Developed lower BSGs yesterday afternoon - BSGs 44 mg/dL, 60 mg/dL * Due to lower BSGs yesterday, CR was discontinued * Patient fasting this am ~90 mg/dL - will loosen CF to 30 today 12-9: * 58yo male identified with hyperglycemia secondary to stress and infection * Unsure of why BSGs so markedly elevated last evening. * A1c is normal, borderline pre-diabetes * HbA1c of 5.7-6.4% indicates "pre-diabetes" --> ADA recommendation is to institute diabetes and atherosclerosis prevention * Pt is not on any antidiabetic agents as an outpatient, insulin naive. * Will start weight based SQ basal bolus insulin regimen and titrate based on BSG trends. * Typically, at lower A1cs post-prandial hyperglycemia is most problematic. Will start CF/CR and add basal insulin if BSG >180 mg/dl this evening * Goal is to maintain BSGs <200 mg/dl (ideally <150 mg/dl) to prevent infectious complications PLAN FOR INPATIENT GLYCEMIC CONTROL: * Basal insulin - dc'ed * Bolus insulin - loosen CF * NovoLog per scale ACHS or Q6hrs while NPO * Goal Range: Low 110 mg/dL - High 140 mg/dL * Correction Factor: 30 mg/dL/unit * Nutritional / Prandial insulin per carb ratio - discontinued
[2018-09-16] MEDS: MoRPHine SULFATE PCA 50 MG/50ML IV PRN (11:26)
--- NOTE | 2018-09-16 15:50 | Internal Med Progress Note ---
Progress Note: A/P (1) Pneumonia Status: Acute Assessment and plan: - cx showed rare GPC, GNC on sputum - continue vanc/zosyn Current Visit: Yes (2) Infection associated with internal left knee prosthesis Status: None Assessment and plan: - request [facility] records for cx of joint - cont MEDICAL PRACTICE MANAGER, oxy 10 mg PO q6h prn for pain joint known to be necrotic at [facility] Current Visit: Yes (3) Hypertension Status: None Assessment and plan: - labetalol prn, 180/110 goal Current Visit: Yes (4) Edema, peripheral Status: Acute Assessment and plan: - albumin 0.9 s/p gastric bypass earlier this year - nutrition consult, appreciate recs Current Visit: Yes (5) Borderline diabetes Status: None Assessment and plan: - nutrition consult - lanus 20u if gluc >180, sliding scale for correction factor of 30 - A1C 5.6 Current Visit: Yes (6) Anemia Status: None Assessment and plan: - consistent with AOCD Current Visit: Yes - Time Spent With Patient Total time spent is greater than 50% in coordination of care (as documented) at patient's floor/unit and/or counseling patient: 25 - 35 minutes Internal Medicine - PN: Subj Interval history: States he is feeling better today, pain 6/10 but he is able to live with this pain. States his abdominal pain is better after BM, no relation to food intake. Points to RUQ as worst abdominal pain, also points to suprapubic region as he lifts skin fold. Denies chest pain, difficulty breathing, diarrhea, pruritus, confusion, sleeping problems. Unable to ambulate due to pain in both the left ( septic) and right knee. PN: Obj Ex Vital signs: Temp Pulse Resp BP Pulse Ox 37.0 C 72 18 148/80 H 98 09/16/18 11:22 09/16/18 11:22 09/16/18 11:22 09/16/18 11:22 09/16/18 11:22 - Constitutional no acute distress, cooperative, obese - Routine HEENT Exam Head: Present: normocephalic, atraumatic Eye: Absent: conjunctival icterus ENT: Present: mucous membranes moist, oropharynx clear - Routine Neck Exam Absent: JVD - Routine Respiratory Exam Present: CTA bilaterally. Absent: wheezes, crackles - Routine Cardiovascular Exam Present: RRR, S1, S2. Absent: murmur, gallop, rubs - Routine Abdominal Exam Present: soft, tenderness (TTP in RUQ, LUQ), firm (RUQ firmness, soft elsewhere) , surgical scars, organomegaly (splenomegaly). Absent: distended, rebound, guarding - Routine Extremities Exam Present: edema. Absent: cyanosis, calf tenderness Comments: no asterixis - Routine Skin Exam Present: dry. Absent: erythema, jaundice, rash - Routine Neurological Exam Present: alert, oriented X3, vision grossly intact, hearing grossly intact, normal speech. Absent: nystagmus - Routine Psychiatric Exam Present: cooperative, normal affect, normal thought process - Urinary Catheter Management Diop/Indwelling Cath placed during this visit: yes Urethral indwelling: Yes Reason for continuing: Prolonged immobilization Insertion date: 09/10/18 Insertion time: 08:05 Internal Medicine - PN: Obj Da - Labs CBC & Chem 7: 09/16/18 09:16 09/16/18 09:16 Labs: Laboratory Results - last 24 hr 09/11/18 09/15/18 09/15/18 17:00 14:31 14:47 WBC RBC Hgb Hct MCV MCH MCHC RDW Std Deviation RDW Coeff of Leatha Plt Count MPV Creatinine Est Cr Clr Drug Dosing Est GFR ( Amer) Est GFR (Non-Af Amer) POC Glucose 41 L* 67 L* Urine Creatinine 2 58.6 Vancomycin Trough Urine Opiates Screen POSITIVE A Ur Opiates Confirm POSITIVE A Ur Oxycodone Screen POSITIVE A Ur Methadone, Qual NEGATIVE Ur Methadone DNR Urine Barbiturates NEGATIVE Ur Barbiturate Confirm DNR Ur Phencyclidine Scrn NEGATIVE Urine PCP Confirm DNR Ur Amphetamines Screen NEGATIVE U Amphetamines Confirm DNR U Benzodiazepines Scrn POSITIVE A U Benzodiazepine Confm POSITIVE A Urine Cocaine NEGATIVE U Cocaine Metab Confirm DNR U Marijuana (THC) Screen NEGATIVE U Marijuana (THC) Confirm DNR U THC/Creatinine Ratio DNR Ur Drug Screen Comment DNR 09/15/18 09/15/18 09/15/18 16:21 16:45 17:34 WBC RBC Hgb Hct MCV MCH MCHC RDW Std Deviation RDW Coeff of Leatha Plt Count MPV Creatinine Est Cr Clr Drug Dosing Est GFR ( Amer) Est GFR (Non-Af Amer) POC Glucose 64 L* 60 L* 98 Urine Creatinine 2 Vancomycin Trough Urine Opiates Screen Ur Opiates Confirm Ur Oxycodone Screen Ur Methadone, Qual Ur Methadone Urine Barbiturates Ur Barbiturate Confirm Ur Phencyclidine Scrn Urine PCP Confirm Ur Amphetamines Screen U Amphetamines Confirm U Benzodiazepines Scrn U Benzodiazepine Confm Urine Cocaine U Cocaine Metab Confirm U Marijuana (THC) Screen U Marijuana (THC) Confirm U THC/Creatinine Ratio Ur Drug Screen Comment 09/15/18 09/16/18 09/16/18 20:05 05:31 08:08 WBC RBC Hgb Hct MCV MCH MCHC RDW Std Deviation RDW Coeff of Leatha Plt Count MPV Creatinine Est Cr Clr Drug Dosing Est GFR ( Amer) Est GFR (Non-Af Amer) POC Glucose 122 H 90 78 Urine Creatinine 2 Vancomycin Trough Urine Opiates Screen Ur Opiates Confirm Ur Oxycodone Screen Ur Methadone, Qual Ur Methadone Urine Barbiturates Ur Barbiturate Confirm Ur Phencyclidine Scrn Urine PCP Confirm Ur Amphetamines Screen U Amphetamines Confirm U Benzodiazepines Scrn U Benzodiazepine Confm Urine Cocaine U Cocaine Metab Confirm U Marijuana (THC) Screen U Marijuana (THC) Confirm U THC/Creatinine Ratio Ur Drug Screen Comment 09/16/18 09/16/18 09/16/18 09:16 09:16 09:16 WBC 11.23 H RBC 2.70 L Hgb 7.9 L Hct 24.9 L MCV 92.2 MCH 29.3 MCHC 31.7 L RDW Std Deviation 49.8 H RDW Coeff of Leatha 14.8 H Plt Count 382 MPV 8.2 Creatinine 1.79 H Est Cr Clr Drug Dosing 58.4 Est GFR ( Amer) 48.0 Est GFR (Non-Af Amer) 41.4 POC Glucose Urine Creatinine 2 Vancomycin Trough 12.9 Urine Opiates Screen Ur Opiates Confirm Ur Oxycodone Screen Ur Methadone, Qual Ur Methadone Urine Barbiturates Ur Barbiturate Confirm Ur Phencyclidine Scrn Urine PCP Confirm Ur Amphetamines Screen U Amphetamines Confirm U Benzodiazepines Scrn U Benzodiazepine Confm Urine Cocaine U Cocaine Metab Confirm U Marijuana (THC) Screen U Marijuana (THC) Confirm U THC/Creatinine Ratio Ur Drug Screen Comment 09/16/18 11:33 WBC RBC Hgb Hct MCV MCH MCHC RDW Std Deviation RDW Coeff of Leatha Plt Count MPV Creatinine Est Cr Clr Drug Dosing Est GFR ( Amer) Est GFR (Non-Af Amer) POC Glucose 99 Urine Creatinine 2 Vancomycin Trough Urine Opiates Screen Ur Opiates Confirm Ur Oxycodone Screen Ur Methadone, Qual Ur Methadone Urine Barbiturates Ur Barbiturate Confirm Ur Phencyclidine Scrn Urine PCP Confirm Ur Amphetamines Screen U Amphetamines Confirm U Benzodiazepines Scrn U Benzodiazepine Confm Urine Cocaine U Cocaine Metab Confirm U Marijuana (THC) Screen U Marijuana (THC) Confirm U THC/Creatinine Ratio Ur Drug Screen Comment
[2018-09-16] MEDS: LIDOCAINE 5% 1 PATCH TD SCH (20:51)
[2018-09-16] MEDS: ENOXAPARIN INJ 40 MG/0.4 ML SYR SQ SCH (20:52)
[2018-09-16] MEDS: AMMONIUM LACTATE 12% LOTION 225 GM BTL EXT SCH (20:53)
[2018-09-16] MEDS: LORazepam 1 MG TAB PO PRN (20:54)
[2018-09-16] MEDS: SODIUM CHLORIDE 0.9% 1000ML 1,000 ML IV SCH (21:38)
--- NOTE | 2018-09-16 22:23 | Hospitalist Progress Note ---
Date of Service September 16, 2018 Assessment & Plan (1) Pneumonia: Chest x-ray with diffuse consolidative infiltrate in the right lung as well as developing peripheral infiltrate in the left lung. Patient is presently afebrile, hemodynamically stable, no respiratory distress, nonseptic in appearance. He does have leukocytosis, WBCs = 11.33. Pro-calcitonin 0.32. Recent prolonged hospital stay with risk for resistant organisms. clinically much improved, cough is resolved, breathing stable continue Vancomycin and Zosyn for knee coverage, will certainly have more than adequate coverage for pneumonia (2) Septic arthritis: Consult orthopedic surgery-greatly appreciate assistance with this interesting case Empiric antibiotic coverage with vancomycin and Zosyn Consulted Infectious disease will contact [facility] tomorrow to check on any culture sensitivities patient left AMA from [facility], discharge summary did not have final culture results continue with Oxycodone and Dilaudid BODY SHOP MANAGER, will need to wean further tomorrow ultimately patient will need to follow up at [facility] for repeat TKA once spacer in place for 6 weeks and completed 6 weeks of IV antibiotics (3) Edema, peripheral: Patient with peripheral edema. Serum albumin of 0.9. 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 Question malnutrition as well as deconditioning after prolonged hospital stay and chronic illness. UA negative for protein. continue supplementations confirmed that he does have a history of Khloe en Y bypass also, heavy alcohol abuse (4) Hypertension: BP stable not going to add anything at this time (5) Borderline diabetes: Blood surgars have been routinely elevated above 200. Will continue to monitor. Interesting his A1C is 5.6 will check outpatient HbA1c levels * (6) Gastric ulcer: Protonix 40 mg p.o. daily (7) Alcohol abuse: patient was drinking a fifth a day as well as beer up until 6-7 weeks ago caused him to move out of his home here in [place] and back to [place] (8) Anemia: Hb down further to 7.9 will repeat tomorrow no signs of active bleeding he has a recent history of ERCP in May * (9) Leg weakness: Patient has 5/5 strength. Will order Physical therapy. However patient refused again Physical therapy. Ppx-Lovenox Code-full Spent 35 minutes in management of patient. Plan is to decide on termite technician antibiotics. Patient will require about 6 weeks worth. Awaiting input. . (10) BISHOP (acute kidney injury): Cr up to 1.79, choi in place, making adequate urine could be due to septic arthritis and inflammatory state adequately hydrated will repeat Cr tomorrow if it continues to rise then consider nephrology consult Subjective patient says his knee pain is better, still on BODY SHOP MANAGER though, using less often says that he cannot put weight on his left or right leg due to pain asked how he left [facility], said that his family had a car and they carried him out drove home to [place] and brought him directly to hospital, still with [facility] ID bracelet he is concerned that a procedure he had in early fall had something to do with his left knee infection reviewed outpatient records, he had choledocholithiasis, required ERCP and sphincterotomy with CBD stent the stent was later removed although he failed to show up for initial appointment due to correction sentence due to DUI patient very frustrated and tearful at times says he just wants to go home and hug his family, see his 29 grand children reviewed labs, Hb low at 7.9, has mild leukocytosis, Cr up to 1.79 patient admits to drinking a lot, would drink about a fifth of liquor a day with some beer has not had a drink for 6 weeks since he was hospitalizated at [facility] for 5 weeks then came directly here he admits that he will need rehab since he cannot walk due to pain Physical Exam 2 Vital Signs (Past 24 Hours): Last Vital Signs Temp 37.5 C 09/16/18 19:25 Pulse 109 H 09/16/18 19:25 Resp 16 09/16/18 19:25 BP 146/83 H 09/16/18 19:25 Pulse Ox 96 09/16/18 19:25 Constitutional: WD/WN, vitals as above Eyes: PERRL, conjunctivae normal, anicteric sclerae ENMT: external ear and nose normal, oropharynx normal Neck: trachea midline, no thyromegaly Respiratory: normal respiratory effort, lungs clear to auscultation Cardiovascular: RRR, no murmur, no edema Gastrointestinal (Abdomen): normal bowel sounds, soft, nontender, no hepatosplenomegaly Musculoskeletal: Head/Neck/Chest: normocephalic and head atraumatic Extremities: + limited ROM of extremities (left knee) and + joint enlargement ( left knee) Skin: no rashes, warm and dry extremely dry feet Neurologic: patellar DTR's 2+ bilat, sensation intact and PERRL, EOMI, accommodation nl, no face palsy, no dysarthria Psychiatric: Orientation: alert and oriented x 3 Mood: + depressed mood and + irritable mood Lymphatic: no cervical or axillary lymphadenopathy Results & Data Laboratory Results Laboratory Results - last 24 hr 09/16/18 09/16/18 09/16/18 05:31 08:08 09:16 WBC RBC Hgb Hct MCV MCH MCHC RDW Std Deviation RDW Coeff of Leatha Plt Count MPV Creatinine Est Cr Clr Drug Dosing Est GFR ( Amer) Est GFR (Non-Af Amer) POC Glucose 90 78 Vancomycin Trough 12.9 09/16/18 09/16/18 09/16/18 09:16 09:16 11:33 WBC 11.23 H RBC 2.70 L Hgb 7.9 L Hct 24.9 L MCV 92.2 MCH 29.3 MCHC 31.7 L RDW Std Deviation 49.8 H RDW Coeff of Leatha 14.8 H Plt Count 382 MPV 8.2 Creatinine 1.79 H Est Cr Clr Drug Dosing 58.4 Est GFR ( Amer) 48.0 Est GFR (Non-Af Amer) 41.4 POC Glucose 99 Vancomycin Trough 09/16/18 09/16/18 09/16/18 14:04 16:18 17:10 WBC RBC Hgb Hct MCV MCH MCHC RDW Std Deviation RDW Coeff of Leatha Plt Count MPV Creatinine Est Cr Clr Drug Dosing Est GFR ( Amer) Est GFR (Non-Af Amer) POC Glucose 144 H 203 H 85 Vancomycin Trough 09/16/18 09/16/18 20:09 20:53 WBC RBC Hgb Hct MCV MCH MCHC RDW Std Deviation RDW Coeff of Leatha Plt Count MPV Creatinine Est Cr Clr Drug Dosing Est GFR ( Amer) Est GFR (Non-Af Amer) POC Glucose 221 H 127 H Vancomycin Trough Medications Administered Current Inpatient Medications Acetaminophen (Tylenol) 650 mg PO Q4H PRN PRN Reason: pain/fever Stop: 10/10/18 18:42 Last Admin: 09/15/18 00:08 Dose: 650 mg Dextrose (Dextrose 50%) 25 - 50 ml IV UD PRN; Protocol PRN Reason: Hypoglycemia Protocol Stop: 10/15/18 11:08 Enoxaparin Sodium (Lovenox) 40 mg SQ PM JERSON Stop: 10/10/18 20:59 Last Admin: 09/16/18 20:52 Dose: 40 mg Glucagon (Glucagen) 1 mg IM UD PRN; Protocol PRN Reason: Hypoglycemia Protocol Stop: 10/15/18 11:08 Glucose (Glucose 40%) 15 - 30 gm PO UD PRN; Protocol PRN Reason: Hypoglycemia Protocol Stop: 10/15/18 11:08 Glucose (Dex4 Glucose) 4 - 8 tabs PO UD PRN; Protocol PRN Reason: Hypoglycemia Protocol Stop: 10/15/18 11:08 Piperacillin Sod/Tazobactam (Sod 3.375 gm/ Dextrose) 115 mls @ 28.75 mls/hr IV Q8H [facility] Stop: 10/22/18 19:59 Last Admin: 09/16/18 20:49 Dose: 28.8 mls/hr Sodium Chloride (Nss 1000ml) 1,000 mls @ 15 mls/hr IV .Q24H [facility] Stop: 09/26/18 18:29 Last Admin: 09/16/18 21:38 Dose: 15 mls/hr Insulin Aspart (Novolog Flexpen) 0 units SC ACHS [facility]; Protocol Stop: 10/15/18 11:29 Last Admin: 09/16/18 20:54 Dose: Not Given Labetalol HCl (Normodyne) 10 mg IV Q4 PRN PRN Reason: Hypertension Stop: 10/10/18 18:42 Lactic Acid (Amlactin) 1 gm EXT BID [facility] Stop: 10/16/18 20:59 Last Admin: 09/16/18 20:53 Dose: 1 gm Lactobacillus Acidophilus (Floranex) 4 tab PO QIDM [facility] Stop: 10/12/18 16:59 Last Admin: 09/16/18 20:51 Dose: Not Given Lidocaine (Lidoderm 5%) 2 patch TD HS [facility] Stop: 10/11/18 21:59 Last Admin: 09/16/18 20:51 Dose: Not Given Lorazepam (Ativan) 1 mg PO HS PRN PRN Reason: Insomnia Stop: 10/13/18 19:00 Last Admin: 09/16/18 20:54 Dose: 1 mg Miscellaneous (Remove Lidoderm Patch) 2 ea N/A QAM [facility] Stop: 10/12/18 08:59 Last Admin: 09/16/18 08:16 Dose: Not Given Miscellaneous (Carbohydrates For Hypoglycemia) 15 - 30 gm PO UD PRN PRN Reason: Hypoglycemia Treatment Stop: 10/15/18 11:08 Last Admin: 09/15/18 16:24 Dose: 15 gm Miscellaneous Information (Consult) 1 ea N/A UD PRN PRN Reason: Consult Stop: 10/10/18 18:42 Miscellaneous Information (Consult) 1 ea N/A UD PRN PRN Reason: Consult Stop: 10/10/18 18:42 Miscellaneous Information (Consult Glycemic Management Pharmacy) 1 ea N/A UD PRN PRN Reason: Consult Stop: 10/15/18 11:04 Morphine Sulfate (Morphine Cashier Manager 50 Mg/50 Ml) 50 mg IV PRN PRN; Protocol PRN Reason: Pain Stop: 09/26/18 17:33 Last Admin: 09/16/18 11:26 Dose: 50 mg Naloxone HCl (Narcan) 0.1 mg IV Q5M PRN; Protocol PRN Reason: Oversedation/Resp Depression Stop: 09/26/18 17:33 Ondansetron HCl (Zofran) 4 mg IV Q6H PRN PRN Reason: Nausea Stop: 10/10/18 18:42 Last Admin: 09/13/18 08:37 Dose: 4 mg Oxycodone HCl (Roxicodone Immediate Rel) 10 mg PO Q6H [facility] Stop: 09/28/18 18:59 Last Admin: 09/16/18 19:06 Dose: 10 mg _ (1) Anemia Anemia type: unspecified type Bone marrow failure anemia type: Chronic kidney disease stage: Folate deficiency anemia type: Hemolytic anemia type: Iron deficiency anemia type: Other causes of anemia: Vitamin B12 deficiency anemia type: Qualified Code(s): D64.9 - Anemia, unspecified (2) Septic arthritis Laterality: left Septic arthritis location: knee Septic arthritis organism: due to unspecified organism Qualified Code(s): M00.9 - Pyogenic arthritis, unspecified (3) Leg weakness Laterality: bilateral Qualified Code(s): R29.898 - Other symptoms and signs involving the musculoskeletal system (4) Gastric ulcer Gastric ulcer chronicity: unspecified ulcer chronicity Gastric ulcer complication status: unspecified whether hemorrhage or perforation present Qualified Code(s): K25.9 - Gastric ulcer, unspecified as acute or chronic, without hemorrhage or perforation (5) Hypertension Hypertension type: essential hypertension Qualified Code(s): I10 - Essential (primary) hypertension (6) Pneumonia Aspiration pneumonia type: Laterality: right Lung location: unspecified part of lung Pneumonia type: due to unspecified organism Qualified Code(s): J18.9 - Pneumonia, unspecified organism
[2018-09-17] MEDS: OXYCODONE HCL IR 5 MG TAB (IMMEDIATE RELEASE) PO SCH ×2 (01:04→07:15)
[2018-09-17] MEDS: PIPERACILLIN/TAZOBACTAM 3.375 GM in DEXTROSE 5% 100 ML IV SCH ×3 (03:52→20:36)
[2018-09-17 06:17] LABS: Basophils # (auto) 0.03 K/uL (0-0.2); Basophils % (auto) 0.3 %; Eosinophils # (auto) 0.13 K/uL (0-0.5); Eosinophils % (auto) 1.2 %; Hematocrit (blood only) 25.4 % (42-52); Hemoglobin 7.9 g/dL (14.0-18.0); Immature Granulocytes # (auto) 0.03 K/uL (0.00-0.02); Immature Granulocytes % (auto) 0.3 %; Lymphocytes # (auto) 2.67 K/uL (1.2-3.4); Lymphocytes % (auto) 25.4 %; Mean Corpuscular Hgb Conc 31.1 g/dL (32-36); Mean Corpuscular Volume 91.7 fL (80-100); Mean Platelet Volume 7.9 fL (7.4-10.4); Monocytes # (auto) 0.61 K/uL (0.11-0.59); Monocytes % (auto) 5.8 %; Neutrophils # (auto) 7.05 K/uL (1.4-6.5); Platelet Count 397 K/uL (130-400); RDW Coefficient of Variation 14.5 % (11.5-14.5); RDW Standard Deviation 49.1 fL (36.4-46.3); Red Blood Count 2.77 M/uL (4.7-6.1); White Blood Count 10.52 K/uL (4.8-10.8)
[2018-09-17 06:35] LABS: RBC Morphology Unremarkable
[2018-09-17 06:52] LABS: BUN Creatinine Ratio 10.7 (10-20); Calcium 7.4 mg/dl (8.5-10.1); Creatinine Clr Calc Pharmacy 56.4 ml/min; Est GFR (African American) 46.1; Est GFR (Non-African American) 39.8
[2018-09-17 06:54] LABS: Albumin Globulin Ratio 0.2 (0.9-2); Bilirubin,Total 0.2 mg/dl (0.1-1); Globulin 5.3 gm/dl (2.5-4.0); Total Protein 6.3 gm/dl (6.4-8.2)
[2018-09-17] MEDS: AMMONIUM LACTATE 12% LOTION 225 GM BTL EXT SCH ×2 (08:05→20:37)
[2018-09-17] MEDS: LACTOBACILLUS ACIDOPHILUS (FLORANEX) TAB PO SCH ×4 (08:07→20:06)
[2018-09-17] MEDS: INSULIN ASPART 100 UNITS/ML 3 ML PEN SC SCH ×4 (08:07→20:07)
[2018-09-17] MEDS: SODIUM CHLORIDE 0.9% 1000ML 1,000 ML IV SCH ×3 (09:05→21:26)
[2018-09-17] MEDS: OXYCODONE HCL IR 5 MG TAB (IMMEDIATE RELEASE) PO PRN ×3 (13:38→22:18)
--- NOTE | 2018-09-17 13:38 | Pharmacy Report ---
Pharmacy Abx Dose Short Note - Date of Service September 17, 2018 - Assessment & Plan Assessment 58 year old M receiving IV Vancomycin and Zosyn for treatment of septic arthritis, pneumonia Day # 8 of antimicrobial therapy. Plan Vancomycin * Random level of 13.8 mcg/mL is subtherapeutic - this level was drawn ~24 hours after last dose of 1000mg was given on 09/16. This level is actually surprising given that renal function is worse. However, it appears q24 dosing appropriate. * Initiate dose of 1000 mg IV every 24 hours * Goal trough level for septic arthritis, pneumonia : 15 to 20 mcg/mL * Trough or random level ordered for: 09/19/18 @ 1330 (only prior 3rd dose and therefore not reflective of steady state, but would like to assess dosing regimen earlier) Pharmacy will continue to follow and will adjust dose/frequency as necessary. Thank you.
[2018-09-17] MEDS: VANCOMYCIN HCL 1,000 MG in SODIUM CHLORIDE 0.9% 250 ML IV SCH (14:30)
--- NOTE | 2018-09-17 17:46 | Hospitalist Progress Note ---
Date of Service September 17, 2018 Assessment & Plan (1) Pneumonia: Chest x-ray with diffuse consolidative infiltrate in the right lung as well as developing peripheral infiltrate in the left lung at time of admission Patient is presently afebrile, hemodynamically stable, no respiratory distress continue Vancomycin and Zosyn for knee coverage, will certainly have more than adequate coverage for pneumonia at this point suspect the pnuemonia is cleared (2) Septic arthritis: Consult orthopedic surgery-greatly appreciate assistance Empiric antibiotic coverage with vancomycin and Zosyn Consulted Infectious disease sent records request to [facility] again today specifically asking for all microbiology results blood cultures, synovial cultures, operative cultures will help narrow down IV antibiotics increase Oxycodone to 10mg q4, try to wean from EXPRESS MANAGER ultimately patient will need to follow up at [facility] for repeat TKA once spacer in place for 6 weeks and completed 6 weeks of IV antibiotics (3) Edema, peripheral: Patient with peripheral edema. Serum albumin of 1.0 Per report he is status post gastric bypass. Question malnutrition as well as deconditioning after prolonged hospital stay and chronic illness. UA negative for protein. 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 Will continue to monitor. Interesting his A1C is 5.6 * (6) Gastric ulcer: Protonix 40 mg p.o. daily (7) Alcohol abuse: patient was drinking a fifth a day as well as beer up until 6-7 weeks ago caused him to move out of his home here in [place] and back to [place] (8) Anemia: Hb low but stable at 7.9 will repeat tomorrow no signs of active bleeding he has a recent history of ERCP in May * (9) Leg weakness: patient refusing PT due to pain told him that he will need rehab DVT prophylaxis: Lovenox . (10) BISHOP (acute kidney injury): Cr up to 1.85, choi in place, making adequate urine could be due to septic arthritis and inflammatory state will give fluid challenge with NSS at 100cc/hr and repeat BMP tomorrow if it continues to rise then consider nephrology consult Subjective patient in slightly better spirits today says that oxycodone works, it just wears off prior to 6 hours will try to increase frequency to 4 hours and see if that helps trying to limit use of EXPRESS MANAGER pump eating okay, mostly tomato soup and pizza, drinking a lot of fluid no signs of alcohol withdrawal patient signed another release of records discussed with [facility] microbiology lab, instructed to fax form to HIM at [facility] still awaiting final blood, synovial and surgical cultures reviewed labs, Cr going up slightly, making adequate urine, will give fluids Hb stable at 7.9, WBC normal electrolytes stable Review of Systems All systems reviewed & are unremarkable except as noted in HPI & below Respiratory: + cough Musculoskeletal: + joint pain (severe pain in left knee and moderate pain in right knee, right hip) Physical Exam 2 Vital Signs (Past 24 Hours): Last Vital Signs Temp 36.9 C 09/17/18 15:34 Pulse 75 09/17/18 15:34 Resp 20 09/17/18 15:34 BP 148/85 H 09/17/18 15:34 Pulse Ox 96 09/17/18 11:44 Constitutional: WD/WN, vitals as above Eyes: PERRL, conjunctivae normal, anicteric sclerae ENMT: external ear and nose normal, oropharynx normal Neck: trachea midline, no thyromegaly Respiratory: normal respiratory effort, lungs clear to auscultation Cardiovascular: RRR, no murmur, no edema Gastrointestinal (Abdomen): normal bowel sounds, soft, nontender, no hepatosplenomegaly Musculoskeletal: Head/Neck/Chest: normocephalic and head atraumatic Extremities: + limited ROM of extremities (left knee) and + joint enlargement ( left knee) Skin: no rashes, warm and dry Neurologic: patellar DTR's 2+ bilat, sensation intact and PERRL, EOMI, accommodation nl, no face palsy, no dysarthria Psychiatric: Orientation: alert and oriented x 3 Mood: + depressed mood and + irritable mood Lymphatic: no cervical or axillary lymphadenopathy Results & Data Laboratory Results Laboratory Results - last 24 hr 09/16/18 09/16/18 09/17/18 20:09 20:53 05:56 WBC RBC Hgb Hct MCV MCH MCHC RDW Std Deviation RDW Coeff of Leatha Plt Count MPV Immature Gran % (Auto) Neut % (Auto) Lymph % (Auto) [place] % (Auto) Eos % (Auto) Baso % (Auto) Immature Gran # (Auto) Neut # (Auto) Lymph # (Auto) [place] # (Auto) Eos # (Auto) Baso # (Auto) RBC Morphology Sodium 141 Potassium 4.0 Chloride 109 H Carbon Dioxide 28 Anion Gap 4.0 BUN 20 H Creatinine 1.85 H Est Cr Clr Drug Dosing 56.4 Est GFR ( Amer) 46.1 Est GFR (Non-Af Amer) 39.8 BUN/Creatinine Ratio 10.7 Glucose 82 POC Glucose 221 H 127 H Calcium 7.4 L Total Bilirubin 0.2 AST 23 ALT 19 Alkaline Phosphatase 87 Total Protein 6.3 L Albumin 1.0 L Globulin 5.3 H Albumin/Globulin Ratio 0.2 L Random Vancomycin 09/17/18 09/17/18 09/17/18 05:56 07:23 11:25 WBC 10.52 RBC 2.77 L Hgb 7.9 L Hct 25.4 L MCV 91.7 MCH 28.5 MCHC 31.1 L RDW Std Deviation 49.1 H RDW Coeff of Leatha 14.5 Plt Count 397 MPV 7.9 Immature Gran % (Auto) 0.3 Neut % (Auto) 67.0 Lymph % (Auto) 25.4 [place] % (Auto) 5.8 Eos % (Auto) 1.2 Baso % (Auto) 0.3 Immature Gran # (Auto) 0.03 H Neut # (Auto) 7.05 H Lymph # (Auto) 2.67 [place] # (Auto) 0.61 H Eos # (Auto) 0.13 Baso # (Auto) 0.03 RBC Morphology Unremarkable Sodium Potassium Chloride Carbon Dioxide Anion Gap BUN Creatinine Est Cr Clr Drug Dosing Est GFR ( Amer) Est GFR (Non-Af Amer) BUN/Creatinine Ratio Glucose POC Glucose 122 H 148 H Calcium Total Bilirubin AST ALT Alkaline Phosphatase Total Protein Albumin Globulin Albumin/Globulin Ratio Random Vancomycin 09/17/18 09/17/18 11:43 16:12 WBC RBC Hgb Hct MCV MCH MCHC RDW Std Deviation RDW Coeff of Leatha Plt Count MPV Immature Gran % (Auto) Neut % (Auto) Lymph % (Auto) [place] % (Auto) Eos % (Auto) Baso % (Auto) Immature Gran # (Auto) Neut # (Auto) Lymph # (Auto) [place] # (Auto) Eos # (Auto) Baso # (Auto) RBC Morphology Sodium Potassium Chloride Carbon Dioxide Anion Gap BUN Creatinine Est Cr Clr Drug Dosing Est GFR ( Amer) Est GFR (Non-Af Amer) BUN/Creatinine Ratio Glucose POC Glucose 137 H Calcium Total Bilirubin AST ALT Alkaline Phosphatase Total Protein Albumin Globulin Albumin/Globulin Ratio Random Vancomycin 13.8 Medications Administered Current Inpatient Medications Acetaminophen (Tylenol) 650 mg PO Q4H PRN PRN Reason: pain/fever Stop: 10/10/18 18:42 Last Admin: 09/15/18 00:08 Dose: 650 mg Dextrose (Dextrose 50%) 25 - 50 ml IV UD PRN; Protocol PRN Reason: Hypoglycemia Protocol Stop: 10/15/18 11:08 Enoxaparin Sodium (Lovenox) 40 mg SQ PM [facility] Stop: 10/10/18 20:59 Last Admin: 09/16/18 20:52 Dose: 40 mg Glucagon (Glucagen) 1 mg IM UD PRN; Protocol PRN Reason: Hypoglycemia Protocol Stop: 10/15/18 11:08 Glucose (Glucose 40%) 15 - 30 gm PO UD PRN; Protocol PRN Reason: Hypoglycemia Protocol Stop: 10/15/18 11:08 Glucose (Dex4 Glucose) 4 - 8 tabs PO UD PRN; Protocol PRN Reason: Hypoglycemia Protocol Stop: 10/15/18 11:08 Piperacillin Sod/Tazobactam (Sod 3.375 gm/ Dextrose) 115 mls @ 28.75 mls/hr IV Q8H [facility] Stop: 10/22/18 19:59 Last Infusion: 09/17/18 16:48 Dose: 28.75 mls/hr Sodium Chloride (Nss 1000ml) 1,000 mls @ 15 mls/hr IV .Q24H [facility] Stop: 09/26/18 18:29 Last Admin: 09/16/18 21:38 Dose: 15 mls/hr Sodium Chloride (Nss 1000ml) 1,000 mls @ 100 mls/hr IV .Q10H [facility] Stop: 10/17/18 08:29 Last Admin: 09/17/18 09:05 Dose: 100 mls/hr Vancomycin HCl 1,000 mg/ (Sodium Chloride) 270 mls @ 125 mls/hr IV DAILY@1400 [facility] Stop: 10/29/18 13:59 Last Infusion: 09/17/18 16:48 Dose: 125 mls/hr Insulin Aspart (Novolog Flexpen) 0 units SC ACHS [facility]; Protocol Stop: 10/15/18 11:29 Last Admin: 09/17/18 17:26 Dose: Not Given Lactic Acid (Amlactin) 1 gm EXT BID [facility] Stop: 10/16/18 20:59 Last Admin: 09/17/18 08:05 Dose: 1 gm Lactobacillus Acidophilus (Floranex) 4 tab PO QIDM [facility] Stop: 10/12/18 16:59 Last Admin: 09/17/18 16:31 Dose: Not Given Lidocaine (Lidoderm 5%) 2 patch TD HS [facility] Stop: 10/11/18 21:59 Last Admin: 09/16/18 20:51 Dose: Not Given Lorazepam (Ativan) 1 mg PO HS PRN PRN Reason: Insomnia Stop: 10/13/18 19:00 Last Admin: 09/16/18 20:54 Dose: 1 mg Miscellaneous (Remove Lidoderm Patch) 2 ea N/A QAM [facility] Stop: 10/12/18 08:59 Last Admin: 09/17/18 09:06 Dose: Not Given Miscellaneous (Carbohydrates For Hypoglycemia) 15 - 30 gm PO UD PRN PRN Reason: Hypoglycemia Treatment Stop: 10/15/18 11:08 Last Admin: 09/15/18 16:24 Dose: 15 gm Miscellaneous Information (Consult) 1 ea N/A UD PRN PRN Reason: Consult Stop: 10/10/18 18:42 Miscellaneous Information (Consult) 1 ea N/A UD PRN PRN Reason: Consult Stop: 10/10/18 18:42 Miscellaneous Information (Consult Glycemic Management Pharmacy) 1 ea N/A UD PRN PRN Reason: Consult Stop: 10/15/18 11:04 Morphine Sulfate (Morphine Felt Cutting Machine Operator 50 Mg/50 Ml) 50 mg IV PRN PRN; Protocol PRN Reason: Pain Stop: 09/26/18 17:33 Last Admin: 09/16/18 11:26 Dose: 50 mg Naloxone HCl (Narcan) 0.1 mg IV Q5M PRN; Protocol PRN Reason: Oversedation/Resp Depression Stop: 09/26/18 17:33 Ondansetron HCl (Zofran) 4 mg IV Q6H PRN PRN Reason: Nausea Stop: 10/10/18 18:42 Last Admin: 09/13/18 08:37 Dose: 4 mg Oxycodone HCl (Roxicodone Immediate Rel) 10 mg PO Q4 PRN PRN Reason: Pain Stop: 10/01/18 12:53 Last Admin: 09/17/18 13:38 Dose: 10 mg _ (1) Pneumonia Aspiration pneumonia type: Laterality: right Lung location: unspecified part of lung Pneumonia type: due to unspecified organism Qualified Code(s): J18.9 - Pneumonia, unspecified organism (2) Septic arthritis Laterality: left Septic arthritis location: knee Septic arthritis organism: due to unspecified organism Qualified Code(s): M00.9 - Pyogenic arthritis, unspecified (3) Hypertension Hypertension type: essential hypertension Qualified Code(s): I10 - Essential (primary) hypertension (4) Gastric ulcer Gastric ulcer chronicity: unspecified ulcer chronicity Gastric ulcer complication status: unspecified whether hemorrhage or perforation present Qualified Code(s): K25.9 - Gastric ulcer, unspecified as acute or chronic, without hemorrhage or perforation (5) Anemia Anemia type: unspecified type Iron deficiency anemia type: Vitamin B12 deficiency anemia type: Folate deficiency anemia type: Bone marrow failure anemia type: Hemolytic anemia type: Other causes of anemia: Chronic kidney disease stage: Qualified Code(s): D64.9 - Anemia, unspecified (6) Leg weakness Laterality: bilateral Qualified Code(s): R29.898 - Other symptoms and signs involving the musculoskeletal system
[2018-09-17] MEDS: LORazepam 1 MG TAB PO PRN (20:36)
[2018-09-17] MEDS: LIDOCAINE 5% 1 PATCH TD SCH (20:38)
[2018-09-17] MEDS: ENOXAPARIN INJ 40 MG/0.4 ML SYR SQ SCH (20:38)
[2018-09-18] MEDS: OXYCODONE HCL IR 5 MG TAB (IMMEDIATE RELEASE) PO PRN ×5 (02:27→22:29)
[2018-09-18] MEDS: PIPERACILLIN/TAZOBACTAM 3.375 GM in DEXTROSE 5% 100 ML IV SCH ×3 (03:46→19:54)
[2018-09-18] MEDS: MoRPHine SULFATE PCA 50 MG/50ML IV PRN (03:47)
[2018-09-18] MEDS: SODIUM CHLORIDE 0.9% 1000ML 1,000 ML IV SCH ×3 (05:46→22:30)
[2018-09-18 07:31] LABS: Creatinine Clr Calc Pharmacy 55.7 ml/min; Est GFR (African American) 46.1; Est GFR (Non-African American) 39.8
[2018-09-18] MEDS: INSULIN ASPART 100 UNITS/ML 3 ML PEN SC SCH ×4 (07:53→21:09)
[2018-09-18] MEDS: LACTOBACILLUS ACIDOPHILUS (FLORANEX) TAB PO SCH ×4 (07:57→21:10)
[2018-09-18] MEDS: AMMONIUM LACTATE 12% LOTION 225 GM BTL EXT SCH ×2 (07:58→21:09)
[2018-09-18] MEDS: VANCOMYCIN HCL 1,000 MG in SODIUM CHLORIDE 0.9% 250 ML IV SCH (13:31)
--- NOTE | 2018-09-18 13:51 | Pharmacy Report ---
Pharmacy Glycemic Sign Off Nt - Date of Service September 18, 2018 - Assessment & Plan ASSESSMENT: * Pharmacy was consulted by Dr Montes on 09/15 for glycemic control and to write orders per [facility] inpatient glycemic control protocol. * Major changes made by pharmacy to antidiabetic regimen include: * Adding prandial + correctional coverage, after which patient had a hypoglycemic episode, so prandial coverage was removed * Patient has been receiving/requiring 0 units of insulin per day for adequate glycemic control * BSGs ranging 82 - 151 mg/dl * Regimen has required zero adjustments over the past 48hrs to achieve this level of control * Do not anticipate further changes in patient status that would quickly deteriorate glycemic control (i.e. patient to be NPO for upcoming procedure, steroids tapering, starting tube feedings, etc). * Please see recommendations for outpatient antidiabetic regimen below. PLAN FOR INPATIENT GLYCEMIC CONTROL: No changes needed to current regimen. * Continue NovoLog per scale ACHS/Q6hrs while NPO * Goal range = 110- 140 mg/dl * CF = 30 mg/dl/unit * Pharmacy is signing off of glycemic consult (confirmed with Dr. Hernandez) and will no longer be making adjustments to inpatient regimen. Please feel free to re-consult if needed. Thank you. DISCHARGE RECOMMENDATIONS: * A1c 5.6 % on 09/11/18 * Would recommend f/u with PCP as an outpatient since patient had some elevated BSGs while admitted
--- NOTE | 2018-09-18 14:07 | CT Scan Report ---
CT SCAN OF THE ABDOMEN AND PELVIS WITHOUT IV CONTRAST CLINICAL HISTORY: Back pain. Anemia. Renal failure. COMPARISON STUDY: Abdominal CT dated 06/13/2018. TECHNIQUE: CT scan of the abdomen and pelvis is performed from the lung bases to the proximal femora. Images are reviewed in the axial, sagittal, and coronal planes. IV contrast was not administered for this examination. Note that the examination is suboptimal without oral and IV contrast. The examinat ion is also degraded by streak artifact from the body wall abutting the CT gantry as well as motion. A dose lowering technique was utilized adhering to the principles of ALARA. FINDINGS: Lung bases: The heart is normal in size and without pericardial effusion. There is diminished attenua tion of the cardiac blood pool as compared to the myocardium suggesting anemia. There are small left and moderate right pleural effusions with right basilar airspace consolidation. There is a multilocul ated gas and fluid containing collection at the consolidated anterior right lung base which measures at least 12 x 6.5 cm. Liver: The unenhanced liver is cirrhotic in morphology and heterogeneous in attenuation. There is nod ularity of the hepatic surface contour as well as hypertrophy of the left lobe. There is central intr ahepatic biliary ductal dilatation. Pneumobilia is noted. Gallbladder: Surgically absent noting clips in the gallbladder fossa. Spleen: Normal in size and attenuation. Pancreas: The unenhanced pancreas is grossly unremarkable. Adrenal glands: Unremarkable. Kidneys: The unenhanced kidneys are normal in size and without hydronephrosis. There are least 2 smal l nonobstructing left renal calculi measuring up to 3 mm. A cyst is again noted in the upper pole of the left kidney. Abdominal vasculature: The abdominal aorta is normal in course and caliber noting moderate atheroscle rotic calcification. Stomach and bowel: Postoperative changes are consistent with a Khloe-en-Y gastric bypass procedure. Fe raina retention is noted throughout the colon. No bowel obstruction is seen. The appendix is not ident ified. Peritoneum: There is a small volume of abdominopelvic ascites and mesenteric edema. No intraperitonea l free air is seen. Lymphadenopathy: Enlarged right cardiophrenic nodes measure up to 10 mm in short axis. Pelvic viscera: Evaluation of the pelvis is degraded by streak artifact from a right hip arthroplasty . The bladder is decompressed around a Diop catheter and not well evaluated. The prostate gland is n ot well-visualized. Fluid is noted within a right inguinal hernia. Calcification of the penile tunica suggests Peyronie's disease. Skeletal structures: The skeletal structures are osteopenic. A right hip arthroplasty is in place. No lytic or blastic lesions are seen. Mild lumbosacral spondylosis is observed. Sclerotic change is not ed in the sacroiliac joints. Soft tissues: There is anasarca of the body wall. Foci of subcutaneous gas within the ventral abdomin al wall are likely related to injection sites. IMPRESSION: 1. Suboptimal examination without oral and IV contrast. The examination is also significant compromis e by streak and motion artifact. 2. Small left and moderate right pleural effusions with right basilar airspace consolidation. This is typical in appearance for pneumonia. 3. There is a large and multiloculated gas and fluid containing collection seen within the consolidat ed right lower lung. This could represent necrotizing pneumonia, abscess, and/or or empyema. 4. There is anasarca of the body wall, a small volume of abdominopelvic ascites, and mesenteric edema . These findings indicate fluid overload. 5. Cirrhotic liver morphology. 6. There are postoperative changes consistent with gastric bypass surgery. No bowel obstruction is se en. 7. Nonobstructing left renal calculi. 8. Additional findings as above. Electronically signed by: Juan Panda M.D. 09/18/2018 2:06 PM
--- NOTE | 2018-09-18 14:07 | Internal Med Progress Note ---
Progress Note: A/P (1) Pneumonia Status: Acute Assessment and plan: - continue vanc/zosyn Current Visit: Yes (2) Infection associated with internal left knee prosthesis Status: None Assessment and plan: - cont vanc/zosyn - pending culture results from [place] - will neeed 6 weeks IV abx total from I&D at [facility] - revision will need to be done at tertiary care, ortho rec return to [facility] Current Visit: Yes (3) Hypertension Status: None Assessment and plan: - stable Current Visit: Yes (4) Edema, peripheral Status: Acute Assessment and plan: - follow, currently stable Current Visit: Yes (5) Borderline diabetes Status: None Assessment and plan: - continue current meds per orders Current Visit: Yes (6) Anemia Status: None Assessment and plan: - in setting of anemia, bowel incontinence, possible bone pain, and recent infections will order workup for multiple myeloma; f/u SPEP, CT chest/abd/pelvis Current Visit: Yes - Time Spent With Patient Total time spent is greater than 50% in coordination of care (as documented) at patient's floor/unit and/or counseling patient: 25 - 35 minutes Internal Medicine - PN: Subj Interval history: States he is feeling better today, pain 6/10 and is able to live with pain. Very happy about where pain control is at now with recent medication switch. Ate 40% of breakfast this AM. States he has been incontinent of bowels for 1 week, denies diarrhea. States he did have short episode of pain 'due to gas' over chest area for less than 5 minutes. Denies diaphoresis, SOB, anxiety, new leg pain, N/V. Mentioned burning at tip of penis, believes 2/2 catheter. Apparently worsened by BM. PN: Obj Ex Vital signs: Temp Pulse Resp BP Pulse Ox 36.8 C 71 18 157/84 H 97 09/18/18 08:00 09/18/18 08:00 09/18/18 08:00 09/18/18 08:00 09/18/18 08:00 - Constitutional no acute distress, cooperative, obese - Routine HEENT Exam Head: Present: normocephalic, atraumatic Eye: Absent: conjunctival icterus ENT: Present: mucous membranes moist, oropharynx clear - Routine Neck Exam Absent: JVD - Routine Chest/Breast/Axilla Exam Chest wall: Present: tenderness (mild TTP of upper rib cage along sternal border b/l) - Routine Respiratory Exam Present: crackles (right sided), rhonchi (Right sided). Absent: accessory muscle use - Routine Cardiovascular Exam Present: RRR, S1, S2, murmur (systolic). Absent: gallop, rubs - Routine Abdominal Exam Present: normoactive bowel sounds, tenderness (TTP overlying RUQ, TTP LUQ over scar tissue), firm (firm over RUQ; otherwise soft), soft, surgical scars ( diffuse). Absent: distended, rebound - Routine Exam Penile: Absent: swelling, erythema, lesions, vesicles, ulceration Groin: Absent: inguinal lymphadenopathy, tenderness, swelling, erythema - Routine Extremities Exam Present: edema (2+ b/l in LE), pulses intact. Absent: cyanosis, clubbing, calf tenderness - Routine Skin Exam Present: dry, warm. Absent: petechiae, urticaria, jaundice, rash Comments: deferred LLE due to bandages, brace - Routine Neurological Exam Present: alert, oriented X3, vision grossly intact, hearing grossly intact, normal speech - Routine Psychiatric Exam Present: normal affect, normal thought process, cooperative, agitated - Urinary Catheter Management Diop/Indwelling Cath placed during this visit: yes Urethral indwelling: Yes Reason for continuing: Prolonged immobilization Insertion date: 09/10/18 Insertion time: 08:05 Internal Medicine - PN: Obj Da - Labs CBC & Chem 7: 09/17/18 05:56 09/18/18 06:21 Labs: Laboratory Results - last 24 hr 09/17/18 09/17/18 09/18/18 16:12 20:17 06:21 Creatinine 1.85 H Est Cr Clr Drug Dosing 55.7 Est GFR ( Amer) 46.1 Est GFR (Non-Af Amer) 39.8 POC Glucose 137 H 151 H 09/18/18 09/18/18 07:53 11:53 Creatinine Est Cr Clr Drug Dosing Est GFR ( Amer) Est GFR (Non-Af Amer) POC Glucose 101 H 159 H
--- NOTE | 2018-09-18 14:18 | CT Scan Report ---
CT OF THE CHEST WITHOUT IV CONTRAST CLINICAL HISTORY: Chest pain. Rib pain. Anemia. Renal failure. COMPARISON STUDY: Chest radiograph September 10, [address] April 04, 2011. CT of the abdomen an d pelvis June 13, 2018. CT DOSE: 1575.71 mGy.cm TECHNIQUE: Axial images of the chest were obtained without IV contrast. Images were reviewed in the axial, sagittal, and coronal planes. IV contrast was not administered for this examination. Automat ed exposure control was utilized for the study. A dose lowering technique was utilized adhering to t he principles of ALARA. FINDINGS: The heart is moderately enlarged. Cardiac blood pool is hypodense which suggests anemia. T here is no pericardial effusion. Moderate right and trace left pleural effusions are noted. There is no pneumothorax. Dense consolidation throughout the right middle lobe is noted with multiple cavitary foci which measure up to 4.4 cm. There is also extensive airspace opacity within the right upper lob e and right lower lobe. There are subpleural opacities within the left lung. No additional sites of c avitation are present. The central airways are patent. Anasarca is noted. Bony thorax is unremarkable . The CT of the abdomen and pelvis will be reported separately. The patient status post gastric bypas s. Pneumobilia is noted. Several enlarged thoracic lymph nodes are noted, including a right paratrach eal lymph node which measures 1.8 cm, shown on image 76 of 266, an enlarged retrocrural lymph node an d prominent cardiophrenic angle nodes. IMPRESSION: 1. Extensive airspace opacities consistent with multifocal pneumonia. Dense right middle lobe consoli dation with multiple foci of cavitation which favors a necrotizing pneumonia with possible lung absce sses. Extensive right upper and right lower lobe airspace opacity consistent with pneumonia. Multiple subpleural left lung opacities. Septic emboli are within the differential. Discussed with Dr. Hernandez at time of dictation. 2. Moderate right pleural effusion. An empyema cannot be excluded. Trace left pleural effusion. 3. Anasarca. Decreased attenuation of cardiac blood pool consistent with anemia. 4. Mild mediastinal lymphadenopathy which is likely reactive. However, a follow-up chest CT in 2-3 mo nths to ensure resolution is recommended. Electronically signed by: Ian Elder M.D. 09/18/2018 2:16 PM
[2018-09-18] MEDS: MoRPHine SULFATE 4 MG/ML 1 ML CARP\\VIAL IV PRN (15:44)
--- NOTE | 2018-09-18 15:51 | Hospitalist Progress Note ---
Date of Service September 18, 2018 Assessment & Plan (1) Pneumonia: CT chest today shows cavitations in right lower lobe, possible abscesses clinically, the patient has no right sided chest pain, no cough, no dyspnea he is afebrile, WBC normal continue on Vancomycin and Zosyn for now will discuss with thoracic surgery tomorrow about any further work up could consider septic emboli given his septic joint and bacteremia at [facility] blood cultures here are negative there was a report of him having a Strep pneumoniae positive blood culture at [facility] still awaiting final culture results from [facility], request sent 09/17 (2) Septic arthritis: Consult orthopedic surgery-greatly appreciate assistance Empiric antibiotic coverage with vancomycin and Zosyn Consulted Infectious disease sent records request to [facility] again on 09/17 specifically asking for all microbiology results blood cultures, synovial cultures, operative cultures will help narrow down IV antibiotics increased Oxycodone to 10mg q4, better pain control, stop [employer] today, Morphine PRN for breakthrough ultimately patient will need to follow up at [facility] for repeat TKA once spacer in place for 6 weeks and completed 6 weeks of IV antibiotics (3) Edema, peripheral: Patient with peripheral edema. Serum albumin of 1.0 Per report he is status post gastric bypass. Question malnutrition as well as deconditioning after prolonged hospital stay and chronic illness. UA negative for protein. continue supplementations confirmed that he does have a history of Khloe en Y bypass also, heavy alcohol abuse (4) Hypertension: BP stable not going to add anything at this time (5) Borderline diabetes: Blood surgars have been routinely elevated above 200. Will continue to monitor. Interesting his A1C is 5.6 * (6) Gastric ulcer: Protonix 40 mg p.o. daily (7) Alcohol abuse: patient was drinking a fifth a day as well as beer up until 6-7 weeks ago caused him to move out of his home here in [place] and back to [place] no signs of withdrawal as he would have gone through that at [facility] (8) Anemia: Hb low but stable at 7.9 will repeat tomorrow no signs of active bleeding he has a recent history of ERCP in May considered multiple myeloma as possibility, CT today does not show any lytic lesions continue to monitor blood counts * (9) Leg weakness: patient refusing PT due to pain told him that he will need rehab DVT prophylaxis: Lovenox . (10) BISHOP (acute kidney injury): Cr elevated but stable at 1.85, choi in place, making adequate urine could be due to septic arthritis and inflammatory state if he does in fact have recent septic emboli given the lung findings, then perhaps renal failure due to abscesses continue fluid today but if Cr not improving then stop tomorrow if Cr goes up then will ask nephrology for their opinion Subjective patient feeling better today, says his pain is much better controlled with increasing Oxycodone no shortness of breath, no cough does admit to some intermittent left sided, sharp chest pain but goes away quickly admits to some back pain reviewed labs, Hb 7.9, Cr is 1.85 again, not going down Albumin low at 1.0 consideration given for multiple myeloma CT chest and abd/pelvis obtained, no lytic lesions seen discussed with Dr. Elder, he was concerned for large right sided pneumonia cavitations seen, concerns for abscess again discussed with patient, he has no symptoms of pneumonia, breathing comfortably checked again, no results from [facility] for cultures Review of Systems All systems reviewed & are unremarkable except as noted in HPI & below Musculoskeletal: + back pain, + joint pain (left knee), + stiffness (left knee) and + limited range of motion (left knee) Physical Exam 2 Vital Signs (Past 24 Hours): Last Vital Signs Temp 36.8 C 09/18/18 08:00 Pulse 71 09/18/18 08:00 Resp 18 09/18/18 08:00 BP 157/84 H 09/18/18 08:00 Pulse Ox 97 09/18/18 08:00 Constitutional: WD/WN, vitals as above Eyes: PERRL, conjunctivae normal, anicteric sclerae ENMT: external ear and nose normal, oropharynx normal Neck: trachea midline, no thyromegaly Respiratory: normal respiratory effort, lungs clear to auscultation Cardiovascular: RRR, no murmur, no edema Gastrointestinal (Abdomen): normal bowel sounds, soft, nontender, no hepatosplenomegaly Musculoskeletal: Head/Neck/Chest: normocephalic and head atraumatic Extremities: + limited ROM of extremities (left knee) and + joint enlargement ( left knee) Skin: no rashes, warm and dry Neurologic: patellar DTR's 2+ bilat, sensation intact and PERRL, EOMI, accommodation nl, no face palsy, no dysarthria Psychiatric: Orientation: alert and oriented x 3 Mood: + depressed mood and + irritable mood Lymphatic: no cervical or axillary lymphadenopathy Results & Data Laboratory Results Laboratory Results - last 24 hr 09/17/18 09/17/18 09/18/18 16:12 20:17 06:21 Creatinine 1.85 H Est Cr Clr Drug Dosing 55.7 Est GFR ( Amer) 46.1 Est GFR (Non-Af Amer) 39.8 POC Glucose 137 H 151 H 09/18/18 09/18/18 07:53 11:53 Creatinine Est Cr Clr Drug Dosing Est GFR ( Amer) Est GFR (Non-Af Amer) POC Glucose 101 H [address] chest IMPRESSION: 1. Extensive airspace opacities consistent with multifocal pneumonia. Dense right middle lobe consolidation with multiple foci of cavitation which favors a necrotizing pneumonia with possible lung abscesses. Extensive right upper and right lower lobe airspace opacity consistent with pneumonia. Multiple subpleural left lung opacities. Septic emboli are within the differential. Discussed with Dr. Hernandez at time of dictation. 2. Moderate right pleural effusion. An empyema cannot be excluded. Trace left pleural effusion. 3. Anasarca. Decreased attenuation of cardiac blood pool consistent with anemia. 4. Mild mediastinal lymphadenopathy which is likely reactive. However, a follow- up chest CT in 2-3 months to ensure resolution is recommended. Medications Administered Current Inpatient Medications Acetaminophen (Tylenol) 650 mg PO Q4H PRN PRN Reason: pain/fever Stop: 10/10/18 18:42 Last Admin: 09/15/18 00:08 Dose: 650 mg Dextrose (Dextrose 50%) 25 - 50 ml IV UD PRN; Protocol PRN Reason: Hypoglycemia Protocol Stop: 10/15/18 11:08 Enoxaparin Sodium (Lovenox) 40 mg SQ PM JERSON Stop: 10/10/18 20:59 Last Admin: 09/17/18 20:38 Dose: 40 mg Glucagon (Glucagen) 1 mg IM UD PRN; Protocol PRN Reason: Hypoglycemia Protocol Stop: 10/15/18 11:08 Glucose (Glucose 40%) 15 - 30 gm PO UD PRN; Protocol PRN Reason: Hypoglycemia Protocol Stop: 10/15/18 11:08 Glucose (Dex4 Glucose) 4 - 8 tabs PO UD PRN; Protocol PRN Reason: Hypoglycemia Protocol Stop: 10/15/18 11:08 Piperacillin Sod/Tazobactam (Sod 3.375 gm/ Dextrose) 115 mls @ 28.75 mls/hr IV Q8H [facility] Stop: 10/22/18 19:59 Last Admin: 09/18/18 11:43 Dose: 30 mls/hr Sodium Chloride (Nss 1000ml) 1,000 mls @ 100 mls/hr IV .Q10H [facility] Stop: 10/17/18 08:29 Last Admin: 09/18/18 13:30 Dose: 100 mls/hr Vancomycin HCl 1,000 mg/ (Sodium Chloride) 270 mls @ 125 mls/hr IV DAILY@1400 [facility] Stop: 10/29/18 13:59 Last Admin: 09/18/18 13:31 Dose: 125 mls/hr Insulin Aspart (Novolog Flexpen) 0 units SC ACHS [facility] Stop: 10/15/18 11:29 Last Admin: 09/18/18 11:41 Dose: Not Given Lactic Acid (Amlactin) 1 gm EXT BID [facility] Stop: 10/16/18 20:59 Last Admin: 09/18/18 07:58 Dose: 1 gm Lactobacillus Acidophilus (Floranex) 4 tab PO QIDM [facility] Stop: 10/12/18 16:59 Last Admin: 09/18/18 11:43 Dose: 4 tab Lidocaine (Lidoderm 5%) 2 patch TD HS [facility] Stop: 10/11/18 21:59 Last Admin: 09/17/18 20:38 Dose: Not Given Lorazepam (Ativan) 1 mg PO HS PRN PRN Reason: Insomnia Stop: 10/13/18 19:00 Last Admin: 09/17/18 20:36 Dose: 1 mg Miscellaneous (Remove Lidoderm Patch) 2 ea N/A QAM [facility] Stop: 10/12/18 08:59 Last Admin: 09/18/18 07:58 Dose: Not Given Miscellaneous (Carbohydrates For Hypoglycemia) 15 - 30 gm PO UD PRN PRN Reason: Hypoglycemia Treatment Stop: 10/15/18 11:08 Last Admin: 09/15/18 16:24 Dose: 15 gm Miscellaneous Information (Consult) 1 ea N/A UD PRN PRN Reason: Consult Stop: 10/10/18 18:42 Miscellaneous Information (Consult) 1 ea N/A UD PRN PRN Reason: Consult Stop: 10/10/18 18:42 Morphine Sulfate (Morphine Sulfate) 4 mg IV Q4H PRN PRN Reason: Severe Pain Stop: 10/02/18 12:44 Last Admin: 09/18/18 15:44 Dose: 4 mg Morphine Sulfate (Morphine Sulfate) 2 mg IV Q4H PRN PRN Reason: Pain Stop: 10/02/18 12:44 Ondansetron HCl (Zofran) 4 mg IV Q6H PRN PRN Reason: Nausea Stop: 10/10/18 18:42 Last Admin: 09/13/18 08:37 Dose: 4 mg Oxycodone HCl (Roxicodone Immediate Rel) 10 mg PO Q4 PRN PRN Reason: Pain Stop: 10/01/18 12:53 Last Admin: 09/18/18 13:29 Dose: 10 mg _ (1) Anemia Anemia type: unspecified type Bone marrow failure anemia type: Chronic kidney disease stage: Folate deficiency anemia type: Hemolytic anemia type: Iron deficiency anemia type: Other causes of anemia: Vitamin B12 deficiency anemia type: Qualified Code(s): D64.9 - Anemia, unspecified (2) Septic arthritis Laterality: left Septic arthritis location: knee Septic arthritis organism: due to unspecified organism Qualified Code(s): M00.9 - Pyogenic arthritis, unspecified (3) Leg weakness Laterality: bilateral Qualified Code(s): R29.898 - Other symptoms and signs involving the musculoskeletal system (4) Gastric ulcer Gastric ulcer chronicity: unspecified ulcer chronicity Gastric ulcer complication status: unspecified whether hemorrhage or perforation present Qualified Code(s): K25.9 - Gastric ulcer, unspecified as acute or chronic, without hemorrhage or perforation (5) Hypertension Hypertension type: essential hypertension Qualified Code(s): I10 - Essential (primary) hypertension (6) Pneumonia Aspiration pneumonia type: Laterality: right Lung location: unspecified part of lung Pneumonia type: due to unspecified organism Qualified Code(s): J18.9 - Pneumonia, unspecified organism
[2018-09-18] MEDS: MoRPHine SULFATE 2 MG/ML CARP IV PRN (20:07)
[2018-09-18] MEDS: ENOXAPARIN INJ 40 MG/0.4 ML SYR SQ SCH (21:07)
[2018-09-18] MEDS: LIDOCAINE 5% 1 PATCH TD SCH (21:09)
[2018-09-18] MEDS: LORazepam 1 MG TAB PO PRN (21:21)
[2018-09-19] MEDS: MoRPHine SULFATE 2 MG/ML CARP IV PRN ×6 (00:03→20:01)
[2018-09-19] MEDS: OXYCODONE HCL IR 5 MG TAB (IMMEDIATE RELEASE) PO PRN ×6 (02:09→22:00)
[2018-09-19] MEDS: PIPERACILLIN/TAZOBACTAM 3.375 GM in DEXTROSE 5% 100 ML IV SCH ×3 (04:04→20:10)
[2018-09-19 05:46] LABS: Basophils # (auto) 0.05 K/uL (0-0.2); Basophils % (auto) 0.5 %; Eosinophils # (auto) 0.13 K/uL (0-0.5); Eosinophils % (auto) 1.3 %; Hematocrit (blood only) 24.6 % (42-52); Hemoglobin 7.8 g/dL (14.0-18.0); Immature Granulocytes # (auto) 0.03 K/uL (0.00-0.02); Immature Granulocytes % (auto) 0.3 %; Lymphocytes # (auto) 2.83 K/uL (1.2-3.4); Lymphocytes % (auto) 27.8 %; Mean Corpuscular Hgb Conc 31.7 g/dL (32-36); Mean Corpuscular Volume 91.8 fL (80-100); Mean Platelet Volume 7.7 fL (7.4-10.4); Monocytes # (auto) 0.75 K/uL (0.11-0.59); Monocytes % (auto) 7.4 %; Neutrophils % (auto) 62.7 %; Platelet Count 372 K/uL (130-400); RDW Coefficient of Variation 14.5 % (11.5-14.5); RDW Standard Deviation 49.3 fL (36.4-46.3); Red Blood Count 2.68 M/uL (4.7-6.1); White Blood Count 10.19 K/uL (4.8-10.8)
[2018-09-19 06:10] LABS: RBC Morphology Unremarkable
[2018-09-19 06:21] LABS: BUN Creatinine Ratio 11.7 (10-20); Calcium 7.4 mg/dl (8.5-10.1); Creatinine Clr Calc Pharmacy 59.5 ml/min; Est GFR (Non-African American) 43.2; Potassium 4.1 mmol/L (3.5-5.1)
[2018-09-19] MEDS: INSULIN ASPART 100 UNITS/ML 3 ML PEN SC SCH ×4 (07:55→20:10)
[2018-09-19] MEDS: AMMONIUM LACTATE 12% LOTION 225 GM BTL EXT SCH ×2 (07:56→20:02)
[2018-09-19] MEDS: LACTOBACILLUS ACIDOPHILUS (FLORANEX) TAB PO SCH ×4 (07:56→20:02)
[2018-09-19] MEDS: SODIUM CHLORIDE 0.9% 1000ML 1,000 ML IV SCH ×2 (08:07→20:04)
[2018-09-19] MEDS ORDERED: VANCOMYCIN TROUGH ONE (13:30)
[2018-09-19] MEDS: VANCOMYCIN HCL 1,000 MG in SODIUM CHLORIDE 0.9% 250 ML IV SCH (13:58)
--- NOTE | 2018-09-19 14:17 | Pharmacy Report ---
Pharmacy Abx Dose Short Note - Date of Service September 19, 2018 - Assessment & Plan Laboratory Tests 09/19/18 13:19 Vancomycin Trough 16.8 Assessment 58 year old M receiving IV Vancomycin and Zosyn for treatment of septic arthritis (internal left knee prosthesis), pending culture results from [facility] and pneumonia. Will need 6 weeks IV antibiotic from I&D at [facility]. Day # 10 of antimicrobial therapy at [facility]. Plan Vancomycin * Trough level of 16.8 mcg/mL is therapeutic * Continue dose of 1000 mg IV every 24 hours * Goal trough level for pneumonia and septic arthritis : 15 to 20 mcg/mL * Trough level ordered for: 09/22/18 Zoysn * 3.375g IV Q8H extended interval infusion for CrCl > 20ml/min Pharmacy will continue to follow and will adjust dose/frequency as necessary. Thank you.
--- NOTE | 2018-09-19 17:01 | Hospitalist Progress Note ---
Date of Service September 19, 2018 Assessment & Plan (1) Pneumonia: CT chest today shows cavitations in right lower lobe, possible abscesses clinically, the patient has no right sided chest pain, no cough, no dyspnea he is afebrile, WBC normal continue on Vancomycin and Zosyn for now will discuss with thoracic surgery tomorrow about any further work up could consider septic emboli given his septic joint and bacteremia at [facility] blood cultures here are negative there was a report of him having a Strep pneumoniae positive blood culture at [facility] still awaiting final culture results from [facility], request sent 09/17 (2) Septic arthritis: Consult orthopedic surgery-greatly appreciate assistance Empiric antibiotic coverage with vancomycin and Zosyn Consulted Infectious disease sent records request to [facility] again on 09/17 specifically asking for all microbiology results blood cultures, synovial cultures, operative cultures will help narrow down IV antibiotics increased Oxycodone to 10mg q4, better pain control, stop OFFAL ICER POULTRY today, Morphine PRN for breakthrough ultimately patient will need to follow up at [facility] for repeat TKA once spacer in place for 6 weeks and completed 6 weeks of IV antibiotics (3) Edema, peripheral: Patient with peripheral edema. Serum albumin of 1.0 Per report he is status post gastric bypass. Question malnutrition as well as deconditioning after prolonged hospital stay and chronic illness. UA negative for protein. continue supplementations confirmed that he does have a history of Khloe en Y bypass also, heavy alcohol abuse (4) Hypertension: BP stable not going to add anything at this time (5) Borderline diabetes: Blood surgars have been routinely elevated above 200. Will continue to monitor. Interesting his A1C is 5.6 * (6) Gastric ulcer: Protonix 40 mg p.o. daily (7) Alcohol abuse: patient was drinking a fifth a day as well as beer up until 6-7 weeks ago caused him to move out of his home here in [place] and back to [place] no signs of withdrawal as he would have gone through that at [facility] (8) Anemia: Hb low but stable at 7.9 will repeat tomorrow no signs of active bleeding he has a recent history of ERCP in May considered multiple myeloma as possibility, CT today does not show any lytic lesions continue to monitor blood counts * (9) Leg weakness: patient refusing PT due to pain told him that he will need rehab DVT prophylaxis: Lovenox . (10) BISHOP (acute kidney injury): Cr elevated but stable at 1.85, choi in place, making adequate urine could be due to septic arthritis and inflammatory state if he does in fact have recent septic emboli given the lung findings, then perhaps renal failure due to abscesses continue fluid today but if Cr not improving then stop tomorrow if Cr goes up then will ask nephrology for their opinion Subjective Respiratory: + cough Musculoskeletal: + back pain, + joint pain (left knee), + stiffness (left knee) and + limited range of motion (left knee) Physical Exam 2 Vital Signs (Past 24 Hours): Last Vital Signs Temp 37.0 C 09/19/18 15:19 Pulse 79 09/19/18 15:19 Resp 18 09/19/18 15:19 BP 156/79 H 09/19/18 15:19 Pulse Ox 98 09/19/18 15:19 Constitutional: WD/WN, vitals as above Eyes: PERRL, conjunctivae normal, anicteric sclerae ENMT: external ear and nose normal, oropharynx normal Neck: trachea midline, no thyromegaly Respiratory: normal respiratory effort, lungs clear to auscultation Cardiovascular: RRR, no murmur, no edema Gastrointestinal (Abdomen): normal bowel sounds, soft, nontender, no hepatosplenomegaly Musculoskeletal: Head/Neck/Chest: normocephalic and head atraumatic Extremities: + limited ROM of extremities (left knee) and + joint enlargement ( left knee) Skin: no rashes, warm and dry Neurologic: patellar DTR's 2+ bilat, sensation intact and PERRL, EOMI, accommodation nl, no face palsy, no dysarthria Psychiatric: Orientation: alert and oriented x 3 Mood: + depressed mood and + irritable mood Lymphatic: no cervical or axillary lymphadenopathy Results & Data Laboratory Results Laboratory Results - last 24 hr 09/18/18 09/19/18 09/19/18 20:16 05:19 05:19 WBC 10.19 RBC 2.68 L Hgb 7.8 L Hct 24.6 L MCV 91.8 MCH 29.1 MCHC 31.7 L RDW Std Deviation 49.3 H RDW Coeff of Leatha 14.5 Plt Count 372 MPV 7.7 Immature Gran % (Auto) 0.3 Neut % (Auto) 62.7 Lymph % (Auto) 27.8 [place] % (Auto) 7.4 Eos % (Auto) 1.3 Baso % (Auto) 0.5 Immature Gran # (Auto) 0.03 H Neut # (Auto) 6.40 Lymph # (Auto) 2.83 [place] # (Auto) 0.75 H Eos # (Auto) 0.13 Baso # (Auto) 0.05 RBC Morphology Unremarkable Sodium 142 Potassium 4.1 Chloride 110 H Carbon Dioxide 29 Anion Gap 3.0 BUN 20 H Creatinine 1.73 H Est Cr Clr Drug Dosing 59.5 Est GFR ( Amer) 50.0 Est GFR (Non-Af Amer) 43.2 BUN/Creatinine Ratio 11.7 Glucose 72 POC Glucose 131 H Calcium 7.4 L Vancomycin Trough 09/19/18 09/19/18 09/19/18 07:28 11:35 13:19 WBC RBC Hgb Hct MCV MCH MCHC RDW Std Deviation RDW Coeff of [place]atha Plt Count MPV Immature Gran % (Auto) Neut % (Auto) Lymph % (Auto) [place] % (Auto) Eos % (Auto) Baso % (Auto) Immature Gran # (Auto) Neut # (Auto) Lymph # (Auto) [place] # (Auto) Eos # (Auto) Baso # (Auto) RBC Morphology Sodium Potassium Chloride Carbon Dioxide Anion Gap BUN Creatinine Est Cr Clr Drug Dosing Est GFR ( Amer) Est GFR (Non-Af Amer) BUN/Creatinine Ratio Glucose POC Glucose 112 H 101 H Calcium Vancomycin Trough 16.8 Medications Administered Current Inpatient Medications Acetaminophen (Tylenol) 650 mg PO Q4H PRN PRN Reason: pain/fever Stop: 10/10/18 18:42 Last Admin: 09/15/18 00:08 Dose: 650 mg Dextrose (Dextrose 50%) 25 - 50 ml IV UD PRN; Protocol PRN Reason: Hypoglycemia Protocol Stop: 10/15/18 11:08 Enoxaparin Sodium (Lovenox) 40 mg SQ PM JERSON Stop: 10/10/18 20:59 Last Admin: 09/18/18 21:07 Dose: Not Given Glucagon (Glucagen) 1 mg IM UD PRN; Protocol PRN Reason: Hypoglycemia Protocol Stop: 10/15/18 11:08 Glucose (Glucose 40%) 15 - 30 gm PO UD PRN; Protocol PRN Reason: Hypoglycemia Protocol Stop: 10/15/18 11:08 Glucose (Dex4 Glucose) 4 - 8 tabs PO UD PRN; Protocol PRN Reason: Hypoglycemia Protocol Stop: 10/15/18 11:08 Piperacillin Sod/Tazobactam (Sod 3.375 gm/ Dextrose) 115 mls @ 28.75 mls/hr IV Q8H [facility]; Protocol Stop: 10/22/18 19:59 Last Infusion: 09/19/18 15:41 Dose: 28.75 mls/hr Sodium Chloride (Nss 1000ml) 1,000 mls @ 100 mls/hr IV .Q10H [facility] Stop: 10/17/18 08:29 Last Admin: 09/19/18 08:07 Dose: 100 mls/hr Vancomycin HCl 1,000 mg/ (Sodium Chloride) 270 mls @ 125 mls/hr IV DAILY@1400 [facility] Stop: 10/29/18 13:59 Last Admin: 09/19/18 13:58 Dose: 125 mls/hr Insulin Aspart (Novolog Flexpen) 0 units SC ACHS [facility] Stop: 10/15/18 11:29 Last Admin: 09/19/18 12:11 Dose: Not Given Lactic Acid (Amlactin) 1 gm EXT BID [facility] Stop: 10/16/18 20:59 Last Admin: 09/19/18 07:56 Dose: Not Given Lactobacillus Acidophilus (Floranex) 4 tab PO QIDM [facility] Stop: 10/12/18 16:59 Last Admin: 09/19/18 12:11 Dose: Not Given Lidocaine (Lidoderm 5%) 2 patch TD HS [facility] Stop: 10/11/18 21:59 Last Admin: 09/18/18 21:09 Dose: Not Given Lorazepam (Ativan) 1 mg PO HS PRN PRN Reason: Insomnia Stop: 10/13/18 19:00 Last Admin: 09/18/18 21:21 Dose: 1 mg Miscellaneous (Remove Lidoderm Patch) 2 ea N/A QAM [facility] Stop: 10/12/18 08:59 Last Admin: 09/19/18 07:56 Dose: Not Given Miscellaneous (Carbohydrates For Hypoglycemia) 15 - 30 gm PO UD PRN PRN Reason: Hypoglycemia Treatment Stop: 10/15/18 11:08 Last Admin: 09/15/18 16:24 Dose: 15 gm Miscellaneous Information (Consult) 1 ea N/A UD PRN PRN Reason: Consult Stop: 10/10/18 18:42 Miscellaneous Information (Consult) 1 ea N/A UD PRN PRN Reason: Consult Stop: 10/10/18 18:42 Morphine Sulfate (Morphine Sulfate) 4 mg IV Q4H PRN PRN Reason: Severe Pain Stop: 10/02/18 12:44 Last Admin: 09/18/18 15:44 Dose: 4 mg Morphine Sulfate (Morphine Sulfate) 2 mg IV Q4H PRN PRN Reason: Pain Stop: 10/02/18 12:44 Last Admin: 09/19/18 16:00 Dose: 2 mg Ondansetron HCl (Zofran) 4 mg IV Q6H PRN PRN Reason: Nausea Stop: 10/10/18 18:42 Last Admin: 09/13/18 08:37 Dose: 4 mg Oxycodone HCl (Roxicodone Immediate Rel) 10 mg PO Q4 PRN PRN Reason: Pain Stop: 10/01/18 12:53 Last Admin: 09/19/18 13:58 Dose: 10 mg _ (1) Pneumonia Aspiration pneumonia type: Laterality: right Lung location: unspecified part of lung Pneumonia type: due to unspecified organism Qualified Code(s): J18.9 - Pneumonia, unspecified organism (2) Septic arthritis Laterality: left Septic arthritis location: knee Septic arthritis organism: due to unspecified organism Qualified Code(s): M00.9 - Pyogenic arthritis, unspecified (3) Hypertension Hypertension type: essential hypertension Qualified Code(s): I10 - Essential (primary) hypertension (4) Gastric ulcer Gastric ulcer chronicity: unspecified ulcer chronicity Gastric ulcer complication status: unspecified whether hemorrhage or perforation present Qualified Code(s): K25.9 - Gastric ulcer, unspecified as acute or chronic, without hemorrhage or perforation (5) Anemia Anemia type: unspecified type Iron deficiency anemia type: Vitamin B12 deficiency anemia type: Folate deficiency anemia type: Bone marrow failure anemia type: Hemolytic anemia type: Other causes of anemia: Chronic kidney disease stage: Qualified Code(s): D64.9 - Anemia, unspecified (6) Leg weakness Laterality: bilateral Qualified Code(s): R29.898 - Other symptoms and signs involving the musculoskeletal system
[2018-09-19] MEDS: LORazepam 1 MG TAB PO PRN (20:01)
[2018-09-19] MEDS: ENOXAPARIN INJ 40 MG/0.4 ML SYR SQ SCH (20:02)
[2018-09-19] MEDS: LIDOCAINE 5% 1 PATCH TD SCH (20:10)
[2018-09-20] MEDS: LORazepam 1 MG TAB PO PRN ×2 (00:03→20:44)
[2018-09-20] MEDS: MoRPHine SULFATE 2 MG/ML CARP IV PRN ×4 (00:03→13:56)
[2018-09-20] MEDS: PIPERACILLIN/TAZOBACTAM 3.375 GM in DEXTROSE 5% 100 ML IV SCH ×3 (04:28→20:34)
[2018-09-20] MEDS: SODIUM CHLORIDE 0.9% 1000ML 1,000 ML IV SCH (06:06)
[2018-09-20] MEDS: OXYCODONE HCL IR 5 MG TAB (IMMEDIATE RELEASE) PO PRN ×4 (06:26→23:12)
[2018-09-20] MEDS: LACTOBACILLUS ACIDOPHILUS (FLORANEX) TAB PO SCH ×4 (07:40→20:41)
[2018-09-20] MEDS: INSULIN ASPART 100 UNITS/ML 3 ML PEN SC SCH ×4 (07:40→20:44)
[2018-09-20] MEDS: AMMONIUM LACTATE 12% LOTION 225 GM BTL EXT SCH ×3 (07:40→21:03)
[2018-09-20 08:08] LABS: Creatinine Clr Calc Pharmacy 55.4 ml/min; Est GFR (African American) 45.8; Est GFR (Non-African American) 39.6
[2018-09-20 08:21] LABS: Basophils # (auto) 0.05 K/uL (0-0.2); Basophils % (auto) 0.5 %; Eosinophils # (auto) 0.14 K/uL (0-0.5); Eosinophils % (auto) 1.4 %; Hematocrit (blood only) 25.6 % (42-52); Hemoglobin 8.1 g/dL (14.0-18.0); Immature Granulocytes # (auto) 0.03 K/uL (0.00-0.02); Immature Granulocytes % (auto) 0.3 %; Lymphocytes % (auto) 27.6 %; Mean Corpuscular Hgb Conc 31.6 g/dL (32-36); Mean Corpuscular Volume 92.1 fL (80-100); Mean Platelet Volume 8.3 fL (7.4-10.4); Monocytes % (auto) 7.2 %; Neutrophils # (auto) 6.17 K/uL (1.4-6.5); Platelet Count 388 K/uL (130-400); RDW Coefficient of Variation 14.7 % (11.5-14.5); RDW Standard Deviation 49.5 fL (36.4-46.3); Red Blood Count 2.78 M/uL (4.7-6.1); White Blood Count 9.79 K/uL (4.8-10.8)
[2018-09-20 08:29] LABS: BUN Creatinine Ratio 11.2 (10-20); Calcium 7.5 mg/dl (8.5-10.1); Creatinine Clr Calc Pharmacy 55.7 ml/min; Est GFR (African American) 46.1; Est GFR (Non-African American) 39.8; Potassium 3.8 mmol/L (3.5-5.1)
[2018-09-20 08:30] LABS: Albumin Globulin Ratio 0.2 (0.9-2); Bilirubin,Total 0.1 mg/dl (0.1-1); Globulin 5.5 gm/dl (2.5-4.0); Total Protein 6.5 gm/dl (6.4-8.2)
[2018-09-20 08:46] LABS: RBC Morphology Unremarkable
[2018-09-20] MEDS: VANCOMYCIN HCL 1,000 MG in SODIUM CHLORIDE 0.9% 250 ML IV SCH (14:00)
[2018-09-20 14:42] LABS: Mononuclear WBC Pleural 38.9 %; Polynuclear WBC Pleural 61.1 %; RBC Pleural Fluid (A) < 3000 /uL; Source Pleural Fluid RIGHT LUNG; WBC Pleural Fluid (A) 444 /uL
[2018-09-20] MEDS: ALBUMIN 25% 50 ML IV SCH (14:42)
--- NOTE | 2018-09-20 14:44 | XRay Report ---
XR chest 1V portable CLINICAL HISTORY: post thoracentesis on the right COMPARISON STUDY: 09/10/2018 FINDINGS: No evidence for pneumothorax post right-sided thoracentesis. Slightly improved aeration rig ht lung base. Persistent and or residual considerable pleural thickening right apex and right base wi th a superimposed infiltrate right base. Left lung is considered clear. IMPRESSION: No significant pneumothorax post right thoracentesis. The above report was generated using voice recognition software. It may contain grammatical, syntax or spelling errors. Electronically signed by: Efren Lizarraga M.D. 09/20/2018 2:42 PM
[2018-09-20] MEDS ORDERED: HYDROmorphone INJ 0.5 MG/0.5 ML SYR IV ONE (14:45)
[2018-09-20 14:59] LABS: Total Protein Pleural Fluid 2.7 g/dl; Triglyceride Pleural Fluid 13 mg/dl
--- NOTE | 2018-09-20 15:04 | Pulmonary Consultation ---
Date of Consultation September 20, 2018 Assessment & Plan (1) Pneumonia: CT chest today shows cavitations in right lower lobe, possible abscesses. Usually either Staph aureus or less likely strep pneumonia cause necrotizing pneumonia. Septic embolic are likely Pleural effusion studies pending. There is 444WBC mostly neutrophils which supports a parapneumonic effusion/ Unfortunately the lab called the pH clotted. continue on Vancomycin and Zosyn for now The course of a necrotizing pneumonia would be either shelling out of the necrosis and we are left with a cavity and then he would be followed serially to guard for mycetomas. Or the organism progressively damages the lung at which point thoracic surgery may need to be consulted for lobectomy. Placement of a catheter in the cavity has been another option but we have to see liquifaction and clarify that it is one cavity not a set of septic embolic If these are septic emboli then the source which is most likely the prosthesis has been removed and we need to ascertain absence of bacteremia. Patient does not have overt signs of ongoing inflammation. CT after the thoracentesis (ordered) to better visualize the lung now that we have some better aereation. Shows resolution of most of the effusion and better aeration of the lung. There seems to be no necrosis in the RUL. I can see all 3 segmental airways (apical posterior and anterior) with air bronchogram type of consolidation. The Right middle lobe segmental airways (medial and lateral) are seen but there seems to be some necrosis in the RML. The RLL is obscured anteriorly with what appears to be 2 different areas of necrosis. he had complained of chest pain during the thoracentesis which limited us to 1100 ml of fluid removed. The fluid is transudative by protein criteria and by albumin level with preponderance of leukocytes. It is simple parapneumonic fluid and the majority of it is drained. recommend to contniue zosyn and vancomycin for now. Repeat blood cultures Low albumin is a bad prognostic sign and increases risk of mortality. It allows for spontaneous translocation of gut bacteria in a patient suspected to have cirrhosis with anasarca. Recommend Albumin supplementation and aggressive nutrition to target albumin 2. 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 The patient had his prosthesis removed and placed on external stabilizer and an antibiotic spacer. He left [facility] and came to [facility] on a bus because he has family here on 09/10/18 and was admitted to the hospital. orthopedics saw him and advised FU in tertiary center for care of his joint. Dr. Velasco, [facility] follows him. Ortho here recommended "hinged knee brace for him to be worn at all times. In addition, the typical course post operatively for antibiotic cement spacers will require close monitoring by infectious disease and his PCP with a prolonged course of IV abx, sutures be removed at 2 weeks, removal of his antibiotic cement spacer at 6-12 weeks with either placement of new abx spacer vs revision TKA vs knee fusion." ID saw him on 09/12 and recommended vancomycin and Zosyn pending further culture results. During this hospitalization he was noted to have infiltrates on CXR and a borderline elevated WBC. vanc and zosyn have been continued since admission. On 09/18 CT abdomen was obtained on the patient and it showed "1. Extensive airspace opacities consistent with multifocal pneumonia. Dense right middle lobe consolidation with multiple foci of cavitation which favors a necrotizing pneumonia with possible lung abscesses. Extensive right upper and right lower lobe airspace opacity consistent with pneumonia. Multiple subpleural left lung opacities. Septic emboli are within the differential. Discussed with Dr. Hernandez at time of dictation. 2. Moderate right pleural effusion. An empyema cannot be excluded. Trace left pleural effusion." He also had whole body anasarca. He has been afebrile and hemodynamically stable throughout his stay without cough or sputum production or chest pain. However, he constantly asked for pain meds for his leg and abdominal pain. Today a pulmonary consult was called to evaluate for management of possible lung abscess and septic emboli. So far nothing has grown from his cultures and he continues to be on zosyn and vancomycin. At the bedside he did not complain of SOB at rest and was on RA eating with no obvious distress speaking in full sentences. He showed extreme concern and agreed to have thoracentesis which was performed at the bedside. Allergies Allergy/AdvReac Type Severity Reaction Status Date / Time No Known Allergies Allergy Verified 09/10/18 06:28 Home Medications Home Medications Medication Instructions Recorded Confirmed Type Unobtainable 09/10/18 09/10/18 History Patient History Medical History PTSD (post-traumatic stress disorder) (Chronic) Heroin overdose (Chronic) Borderline diabetes High blood pressure Surgical History History of gastric bypass History of hernia repair Hx of foot surgery Status post left knee replacement With multiple revisions. Presently with antibiotic spacer in place Family History Other Diabetes Heart disease Social History Current Living Situation: Spouse Other Information That Helps Us Care for You: No Feels Safe at Home: Yes Safety Concerns: Feels Safe At This Time Smoking Status: Former smoker Tobacco Type: cigarettes Hx Alcohol Use: Yes Alcohol Intake Frequency: 3 or more drinks per day Hx Substance Use: Yes substance use type: former substance user, heroin and IV drugs Beliefs That Will Affect Care: None Communication Ability: Impaired Review of Systems Constitutional: as per Subjective / HPI He has anasarca and can not walk on his leg. Eyes: no diplopia and no problem reported Ear, Nose, Mouth, Throat: no ear trauma and no mouth lesions Respiratory: as per Subjective / HPI Cardiovascular: + orthopnea; no chest pain, no chest pain with activity and no dyspnea at rest Gastrointestinal: + abdominal pain, + bloating and + nausea Genitourinary (Male): no dysuria, no urinary frequency and no hematuria Musculoskeletal: as per Subjective / HPI, + joint pain and + swelling skin edema especially in the abdominal wall Neurologic: no seizure-like activity and no syncope Psychiatric: + anxiety and + substance abuse Physical Exam 2 Vital Signs (Past 24 Hours): Last Vital Signs Temp 36.7 C 09/20/18 14:42 Pulse 73 09/20/18 14:42 Resp 20 09/20/18 14:42 BP 135/80 09/20/18 14:42 Pulse Ox 98 09/20/18 14:42 Constitutional: In bed in anasarca not in acute distress obviousely anxious Eyes: PERRL, conjunctivae normal, anicteric sclerae Neck: trachea midline, no thyromegaly Respiratory: Auscultation: + breath sounds absent and + diminished lung sounds mainly RLL field. Cardiovascular: Rate/Rhythm: regular rate Heart Sounds: normal S1 and normal S2; no murmur Gastrointestinal (Abdomen): Inspection/Auscultation: + abdomen distended abdominal wall edema Musculoskeletal: edema bilateral LE, His LEFT LE is in hinge brace and he can not move legs well Skin: extenive edema Neurologic: A A Ox3; can not move their LE. Results & Data Laboratory Results Laboratory Tests 09/10/18 09/10/18 09/10/18 07:19 07:19 07:19 WBC 11.33 H Hgb 7.5 L Plt Count 289 INR 1.0 Potassium Creatinine 1.32 Calcium 7.3 L AST 61 H Albumin 0.9 L 09/20/18 09/20/18 07:13 07:13 WBC 9.79 Hgb 8.1 L Plt Count 388 INR Potassium 3.8 Creatinine 1.85 H Calcium 7.5 L AST 22 Albumin 1.0 L Diagnostic Findings CXR today IMPRESSION: No significant pneumothorax post right thoracentesis. CT chest 09/18/2018 IMPRESSION: 1. Extensive airspace opacities consistent with multifocal pneumonia. Dense right middle lobe consolidation with multiple foci of cavitation which favors a necrotizing pneumonia with possible lung abscesses. Extensive right upper and right lower lobe airspace opacity consistent with pneumonia. Multiple subpleural left lung opacities. Septic emboli are within the differential. Discussed with Dr. Hernandez at time of dictation. 2. Moderate right pleural effusion. An empyema cannot be excluded. Trace left pleural effusion. 3. Anasarca. Decreased attenuation of cardiac blood pool consistent with anemia. 4. Mild mediastinal lymphadenopathy which is likely reactive. However, a follow- up chest CT in 2-3 months to ensure resolution is recommended.
--- NOTE | 2018-09-20 15:41 | Hospitalist Progress Note ---
Date of Service September 20, 2018 Assessment & Plan (1) Pneumonia: CT chest 09/18 shows cavitations in right lower lobe, consistent with necrotizing pneumonia clinically, the patient has no right sided chest pain, minimal cough, no dyspnea he is afebrile, WBC normal for days continue on Vancomycin and Zosyn diagnostic thoracentesis performed 09/20 at the bedside by Dr. Fair await cultures pulmonology planning on discussing with thoracic surgery could consider septic emboli given his septic joint and bacteremia at [facility] blood cultures here are negative there was a report of him having a Strep pneumoniae positive blood culture at [facility] still awaiting final culture results from [facility], request sent 09/17, checked again today with HIM and the chart ID following as well (2) Septic arthritis: Consult orthopedic surgery-greatly appreciate assistance Empiric antibiotic coverage with vancomycin and Zosyn Consulted Infectious disease sent records request to [facility] again on 09/17 specifically asking for all microbiology results blood cultures, synovial cultures, operative cultures will help narrow down IV antibiotics pain controlled on Oxycodone 10mg q4, Morphine PRN for breakthrough ultimately patient will need to follow up at [facility] for repeat TKA once spacer in place for 6 weeks and completed 6 weeks of IV antibiotics for the time being his TKA would be put on hold until necrotizing pneumonia adequately treated PT/OT has been ordered, patient not really participating (3) Edema, peripheral: Patient with peripheral edema. Serum albumin of 1.0 Per report he is status post gastric bypass. Question malnutrition as well as deconditioning after prolonged hospital stay and chronic illness. UA negative for protein. also, likely some edema due to cirrhosis heavy alcohol abuse (4) Hypertension: BP stable not going to add anything at this time (5) Borderline diabetes: Blood surgars have been routinely elevated above 200. patient refusing Novolog and then sugars do return to normal on their own Will continue to monitor. Interesting his A1C is 5.6 * (6) Gastric ulcer: h/o gastric ulcer Protonix 40 mg p.o. daily (7) Alcohol abuse: patient was drinking a fifth a day as well as beer up until 6-7 weeks ago caused him to move out of his home here in [place] and back to [place] no signs of withdrawal as he would have gone through that at [facility] discussed cirrhosis diagnosis with he and his he says he is never going to touch alcohol again (8) Anemia: Hb stable at 8.1 today will repeat tomorrow no signs of active bleeding he has a recent history of ERCP in May considered multiple myeloma as possibility, CT 09/18 did not show any lytic lesions likely from malnutrition, cirrhosis * (9) BISHOP (acute kidney injury): Cr persistently high at 1.7-1.8 continue choi stop fluids since he is not improving with IV fluids, want to keep him euvolemic likely multifactorial with inflammatory state, abscesses no proteinuria on three separate UA, doubt glomerulonephritis, no hematuria either, no casts could be due to cirrhosis as well continue to monitor closely (10) Cirrhosis, alcoholic: new diagnosis, patient with cirrhotic morphology of liver on CT scan has ascites on exam, peripheral edema, albumin is very low at 1.0 heavy drinking, has not had alcohol in 7-8 weeks since he has been in hospital will recommend gastroenterology consult as outpatient disposition: will need to treat necrotizing pneumonia will need SNF going to need assistant terminal manager IV antibiotics Subjective patient feels the same as yesterday, no major changes main complaint is with the staff (aids and nurses and food), says they don't treat him with respect he became tearful, says he feels like he will never leave the hospital alive discussed the gravity of the situation with his cirrhosis, low albumin, wide spread infection asked him to ask his to come into the hospital this weekend to discuss prognosis discussed the case with Dr. Fair with pulmonology/ICU he performed a right sided thoracentesis, sent fluid for analysis he discussed that necrotizing pneumonias have a very poor prognosis, that patient set up for infection with cirrhosis, low immune function clinically the patient continues to eat well, c/o pain in left knee not willing to participate much he says he does not want to , "just cut off the left leg" discussed that we need to address the pneumonia first reviewed labs, WBC normal, Hb down to 8.1, Cr up to 1.85 Review of Systems All systems reviewed & are unremarkable except as noted in HPI & below Constitutional: + fatigue and + weakness Respiratory: + cough Musculoskeletal: + back pain, + joint pain (left knee), + stiffness (left knee) and + limited range of motion (left knee) Psychiatric: + depression and + hopelessness Physical Exam 2 Vital Signs (Past 24 Hours): Last Vital Signs Temp 36.7 C 09/20/18 14:42 Pulse 73 09/20/18 14:42 Resp 20 09/20/18 14:42 BP 135/80 09/20/18 14:42 Pulse Ox 98 09/20/18 14:42 Constitutional: WD/WN, vitals as above Eyes: PERRL, conjunctivae normal, anicteric sclerae ENMT: external ear and nose normal, oropharynx normal Neck: trachea midline, no thyromegaly Respiratory: normal respiratory effort, lungs clear to auscultation normal respiratory effort; no respiratory distress and no labored breathing Auscultation: + breath sounds absent (right base) Cardiovascular: RRR, no murmur, no edema Gastrointestinal (Abdomen): normal bowel sounds, soft, nontender, no hepatosplenomegaly Musculoskeletal: Head/Neck/Chest: normocephalic and head atraumatic Extremities: + limited ROM of extremities (left knee) and + joint enlargement ( left knee) Skin: no rashes, warm and dry Neurologic: patellar DTR's 2+ bilat, sensation intact and PERRL, EOMI, accommodation nl, no face palsy, no dysarthria Psychiatric: Orientation: alert and oriented x 3 Mood: + depressed mood and + irritable mood Lymphatic: no cervical or axillary lymphadenopathy Results & Data Laboratory Results Laboratory Results - last 24 hr 09/19/18 09/19/18 09/20/18 17:55 20:12 07:13 WBC RBC Hgb Hct MCV MCH MCHC RDW Std Deviation RDW Coeff of Leatha Plt Count MPV Immature Gran % (Auto) Neut % (Auto) Lymph % (Auto) Swain % (Auto) Eos % (Auto) Baso % (Auto) Immature Gran # (Auto) Neut # (Auto) Lymph # (Auto) Swain # (Auto) Eos # (Auto) Baso # (Auto) RBC Morphology Sodium Potassium Chloride Carbon Dioxide Anion Gap BUN Creatinine 1.86 H Est Cr Clr Drug Dosing 55.4 Est GFR ( Amer) 45.8 Est GFR (Non-Af Amer) 39.6 BUN/Creatinine Ratio Glucose POC Glucose 237 H 139 H Calcium Total Bilirubin AST ALT Alkaline Phosphatase Total Protein Albumin Globulin Albumin/Globulin Ratio Pleural Fluid Source Pleural Color Pleural Appearance Pleural pH Pleural WBC Pleural RBC Pleural Polynuclear % Pleural Mononuclear % Pleural Total Protein Pleural Albumin Pleural Triglycerides 09/20/18 09/20/18 09/20/18 07:13 07:13 07:33 WBC 9.79 RBC 2.78 L Hgb 8.1 L Hct 25.6 L MCV 92.1 MCH 29.1 MCHC 31.6 L RDW Std Deviation 49.5 H RDW Coeff of Leatha 14.7 H Plt Count 388 MPV 8.3 Immature Gran % (Auto) 0.3 Neut % (Auto) 63.0 Lymph % (Auto) 27.6 Swain % (Auto) 7.2 Eos % (Auto) 1.4 Baso % (Auto) 0.5 Immature Gran # (Auto) 0.03 H Neut # (Auto) 6.17 Lymph # (Auto) 2.70 Swain # (Auto) 0.70 H Eos # (Auto) 0.14 Baso # (Auto) 0.05 RBC Morphology Unremarkable Sodium 143 Potassium 3.8 Chloride 110 H Carbon Dioxide 26 Anion Gap 7.0 BUN 21 H Creatinine 1.85 H Est Cr Clr Drug Dosing 55.7 Est GFR ( Amer) 46.1 Est GFR (Non-Af Amer) 39.8 BUN/Creatinine Ratio 11.2 Glucose 106 H POC Glucose 109 H Calcium 7.5 L Total Bilirubin 0.1 AST 22 ALT 16 Alkaline Phosphatase 76 Total Protein 6.5 Albumin 1.0 L Globulin 5.5 H Albumin/Globulin Ratio 0.2 L Pleural Fluid Source Pleural Color Pleural Appearance Pleural pH Pleural WBC Pleural RBC Pleural Polynuclear % Pleural Mononuclear % Pleural Total Protein Pleural Albumin Pleural Triglycerides 09/20/18 09/20/18 09/20/18 11:30 Unknown Unknown WBC RBC Hgb Hct MCV MCH MCHC RDW Std Deviation RDW Coeff of Leatha Plt Count MPV Immature Gran % (Auto) Neut % (Auto) Lymph % (Auto) Swain % (Auto) Eos % (Auto) Baso % (Auto) Immature Gran # (Auto) Neut # (Auto) Lymph # (Auto) Swain # (Auto) Eos # (Auto) Baso # (Auto) RBC Morphology Sodium Potassium Chloride Carbon Dioxide Anion Gap BUN Creatinine Est Cr Clr Drug Dosing Est GFR ( Amer) Est GFR (Non-Af Amer) BUN/Creatinine Ratio Glucose POC Glucose 96 Calcium Total Bilirubin AST ALT Alkaline Phosphatase Total Protein Albumin Globulin Albumin/Globulin Ratio Pleural Fluid Source RIGHT LUNG Pleural Color PALE YELLOW Pleural Appearance CLOUDY Pleural pH Pleural WBC 444 Pleural RBC < 3000 Pleural Polynuclear % 61.1 Pleural Mononuclear % 38.9 Pleural Total Protein 2.7 Pleural Albumin < 0.6 Pleural Triglycerides 13 Medications Administered Current Inpatient Medications Acetaminophen (Tylenol) 650 mg PO Q4H PRN PRN Reason: pain/fever Stop: 10/10/18 18:42 Last Admin: 09/15/18 00:08 Dose: 650 mg Dextrose (Dextrose 50%) 25 - 50 ml IV UD PRN; Protocol PRN Reason: Hypoglycemia Protocol Stop: 10/15/18 11:08 Enoxaparin Sodium (Lovenox) 40 mg SQ PM JERSON Stop: 10/10/18 20:59 Last Admin: 09/19/18 20:02 Dose: 40 mg Glucagon (Glucagen) 1 mg IM UD PRN; Protocol PRN Reason: Hypoglycemia Protocol Stop: 10/15/18 11:08 Glucose (Glucose 40%) 15 - 30 gm PO UD PRN; Protocol PRN Reason: Hypoglycemia Protocol Stop: 10/15/18 11:08 Glucose (Dex4 Glucose) 4 - 8 tabs PO UD PRN; Protocol PRN Reason: Hypoglycemia Protocol Stop: 10/15/18 11:08 Piperacillin Sod/Tazobactam (Sod 3.375 gm/ Dextrose) 115 mls @ 28.75 mls/hr IV Q8H [facility]; Protocol Stop: 10/22/18 19:59 Last Infusion: 09/20/18 15:01 Dose: Infused Vancomycin HCl 1,000 mg/ (Sodium Chloride) 270 mls @ 125 mls/hr IV DAILY@1400 [facility] Stop: 10/29/18 13:59 Last Admin: 09/20/18 14:00 Dose: 125 mls/hr Albumin Human (Albumin 25%) 50 mls @ 50 mls/hr IV Q12H JERSON Stop: 09/23/18 01:59 Last Admin: 09/20/18 14:42 Dose: 50 mls/hr Insulin Aspart (Novolog Flexpen) 0 units SC ACHS JERSON Stop: 10/15/18 11:29 Last Admin: 09/20/18 11:15 Dose: Not Given Lactic Acid (Amlactin) 1 gm EXT BID JERSON Stop: 10/16/18 20:59 Last Admin: 09/20/18 07:40 Dose: Not Given Lactobacillus Acidophilus (Floranex) 4 tab PO QIDM JERSON Stop: 10/12/18 16:59 Last Admin: 09/20/18 11:15 Dose: Not Given Lidocaine (Lidoderm 5%) 2 patch TD HS JERSON Stop: 10/11/18 21:59 Last Admin: 09/19/18 20:10 Dose: Not Given Lorazepam (Ativan) 1 mg PO HS PRN PRN Reason: Insomnia Stop: 10/13/18 19:00 Last Admin: 09/20/18 00:03 Dose: 1 mg Miscellaneous (Remove Lidoderm Patch) 2 ea N/A QAM JERSON Stop: 10/12/18 08:59 Last Admin: 09/20/18 07:41 Dose: Not Given Miscellaneous (Carbohydrates For Hypoglycemia) 15 - 30 gm PO UD PRN PRN Reason: Hypoglycemia Treatment Stop: 10/15/18 11:08 Last Admin: 09/15/18 16:24 Dose: 15 gm Miscellaneous Information (Consult) 1 ea N/A UD PRN PRN Reason: Consult Stop: 10/10/18 18:42 Miscellaneous Information (Consult) 1 ea N/A UD PRN PRN Reason: Consult Stop: 10/10/18 18:42 Morphine Sulfate (Morphine Sulfate) 4 mg IV Q4H PRN PRN Reason: Severe Pain Stop: 10/02/18 12:44 Last Admin: 09/18/18 15:44 Dose: 4 mg Morphine Sulfate (Morphine Sulfate) 2 mg IV Q4H PRN PRN Reason: Pain Stop: 10/02/18 12:44 Last Admin: 09/20/18 13:56 Dose: 2 mg Ondansetron HCl (Zofran) 4 mg IV Q6H PRN PRN Reason: Nausea Stop: 10/10/18 18:42 Last Admin: 09/13/18 08:37 Dose: 4 mg Oxycodone HCl (Roxicodone Immediate Rel) 10 mg PO Q4 PRN PRN Reason: Pain Stop: 10/01/18 12:53 Last Admin: 09/20/18 11:12 Dose: 10 mg _ (1) Anemia Anemia type: unspecified type Bone marrow failure anemia type: Chronic kidney disease stage: Folate deficiency anemia type: Hemolytic anemia type: Iron deficiency anemia type: Other causes of anemia: Vitamin B12 deficiency anemia type: Qualified Code(s): D64.9 - Anemia, unspecified (2) Septic arthritis Laterality: left Septic arthritis location: knee Septic arthritis organism: due to unspecified organism Qualified Code(s): M00.9 - Pyogenic arthritis, unspecified (3) Gastric ulcer Gastric ulcer chronicity: unspecified ulcer chronicity Gastric ulcer complication status: unspecified whether hemorrhage or perforation present Qualified Code(s): K25.9 - Gastric ulcer, unspecified as acute or chronic, without hemorrhage or perforation (4) Hypertension Hypertension type: essential hypertension Qualified Code(s): I10 - Essential (primary) hypertension (5) Pneumonia Aspiration pneumonia type: Laterality: right Lung location: unspecified part of lung Pneumonia type: due to unspecified organism Qualified Code(s): J18.9 - Pneumonia, unspecified organism
--- NOTE | 2018-09-20 17:20 | CT Scan Report ---
CT SCAN OF THE CHEST WITHOUT IV CONTRAST CLINICAL HISTORY: Follow-up pulmonary abscess status post thoracentesis. COMPARISON STUDY: Chest CT scans dated 09/18/2018 and 03/27/2011. TECHNIQUE: CT scan of the thorax was performed from the thoracic inlet to the upper abdomen. Images are reviewed in the axial, sagittal, and coronal planes. IV contrast was not administered for this ex amination as per the referring clinician. Note that the examination was performed in significant subo ptimal fashion without IV contrast. A dose lowering technique was utilized adhering to the principle s of ALARA. CT DOSE: 458.71 mGy.cm FINDINGS: Thyroid: The thyroid gland is enlarged and heterogeneous. Thoracic aorta: There is mild atherosclerotic calcification of the thoracic aorta, which is normal in caliber and demonstrates bovine variant arch anatomy. Heart: The heart is enlarged and without pericardial effusion. There is decreased attenuation of the cardiac blood pool as compared to the myocardium suggesting anemia. Lungs and pleural spaces: Secretions are noted in the trachea. There are small to moderate right and small left pleural effusions. The right pleural effusion has decreased in size from 09/18/2018. Again seen is dense airspace consolidation which expands the right middle lobe. Consolidative change is al so seen throughout the right upper and right lower lobes. There is unchanged appearance of a multiloc ulated gas and fluid containing collection within the right middle lobe. This is best seen on image # 190 and measures approximately 7.5 x 11 x 6 cm. Foci of predominantly subpleural consolidation are id entified throughout the left lung, similar in appearance to previous. A 4 mm left upper lobe pulmonar y nodule is again seen on image #80. Mediastinum: There is mediastinal lymphadenopathy. A right paratracheal node on image #87 measures 3. 1 x 2.7 cm. There are also enlarged precarinal and subcarinal nodes. Kindra: Not well assessed with IV contrast. Axillae: There is no axillary lymphadenopathy. Upper abdomen: There are changes from previous gastric bypass surgery. Pneumobilia is again noted. Th ere is intrahepatic biliary ductal dilatation. A small volume of upper abdominal ascites is observed. Enlarged cardiophrenic lymph nodes are similar to previous and measure up to 12 mm in short axis. Skeletal structures: No lytic or blastic bony lesions are seen. Soft tissues: There is anasarca of the body wall. IMPRESSION: 1. There are small to moderate right and small left pleural effusions. The right pleural effusion has decreased in size from 09/18/2018. 2. There is unchanged appearance of dense airspace consolidation which expanded the right middle lobe , as well as a large multiloculated gas and fluid containing collection within the right middle lobe. This likely represents necrotizing pneumonia and pulmonary abscess. 3. Patchy airspace consolidation is again seen throughout the remainder of the right lung. 4. Foci of predominantly subpleural consolidative change are again seen in the left lung. Septic embo li are a different consideration. 5. There is anasarca of the body wall with evidence of anemia. 6. There is a 4 mm left upper lobe pulmonary nodule. This is new from 03/27/1811 and follow-up is tamika cated. See below. 7. Mediastinal lymphadenopathy is unchanged and likely on a reactive basis. 8. Cardiomegaly. 9. Upper abdominal ascites. 10. Additional findings as above. Please refer to below summary of Fleischner criteria recommendations for follow-up of incidental CT n odules (David Briones, Guidelines for management of small pulmonary nodules detected on CT scans: A sta tement from the Fleischner Society, Radiology 237: [phone].) SOLID NODULES Solitary nodule size: <6 mm * low risk patients: no follow-up needed * high risk patients: optional CT at 12 months Solitary nodule size: 6-8 mm * low risk patients: follow-up at 6-12 months, then consider further follow-up at 18-24 months * high risk patients: initial follow-up CT at 6-12 months and then at 18-24 months if no change Solitary nodule size: >8 mm * either low or high risk patients - consider follow-up CT at 3 months, and/or CT-PET, and/or biopsy Multiple nodules size: <6 mm * low risk patients: no routine follow-up * high risk patients: optional CT at 12 months Multiple nodules size: 6-8 mm * low risk patients: follow-up at 3-6 months, then consider further follow-up at 18-24 months * high risk patients: follow-up at 3-6 months, then at 18-24 months if no change Multiple nodules size: >8 mm * low risk patients: follow-up at 3-6 months, then consider further follow-up at 18-24 months * high risk patients: follow-up at 3-6 months, then at 18-24 months if no change Note: newly detected indeterminate nodule in persons 35 years of age or older. * low risk patients: minimal or absent history of smoking and/or other known risk factors * high risk patients: history of smoking or of other known risk factors (e.g. first degree relative with lung cancer, or exposure to asbestos, radon, uranium) * if a nodule up to 8 mm is partly solid or is ground glass further follow-up is required after 24 m onths to exclude possible slow growing adenocarcinoma (SUKHDEEP) SUBSOLID NODULES Solitary pure ground-glass nodule * nodule size <6 mm - no CT follow-up required * nodule size >=6 mm - follow-up CT at 6-12 months, then every 2 years until 5 years Solitary part-solid nodule * nodule size <6 mm - no CT follow-up required * nodule size >=6 mm - follow-up CT at 3-6 months. If unchanged, and solid component remains <6 mm, then annual follow-up for 5 years Multiple subsolid nodules * nodule size <6 mm - follow-up CT at 3-6 months, consider further follow-up at 2 and 4 years if sta ble * nodule size >=6 mm - follow-up CT at 3-6 months, subsequent management based on the most suspiciou s nodule(s) Electronically signed by: Juan Panda M.D. 09/20/2018 5:18 PM
[2018-09-20 18:47] LABS: LDH Pleural Fluid 108 IU
[2018-09-20] MEDS: MoRPHine SULFATE 4 MG/ML 1 ML CARP\\VIAL IV PRN (20:34)
[2018-09-20] MEDS: ENOXAPARIN INJ 40 MG/0.4 ML SYR SQ SCH (20:42)
[2018-09-20] MEDS: LIDOCAINE 5% 1 PATCH TD SCH (20:45)
[2018-09-21] MEDS: ALBUMIN 25% 50 ML IV SCH ×2 (00:09→12:52)
[2018-09-21] MEDS: MoRPHine SULFATE 2 MG/ML CARP IV PRN ×3 (01:40→10:24)
[2018-09-21] MEDS: PIPERACILLIN/TAZOBACTAM 3.375 GM in DEXTROSE 5% 100 ML IV SCH ×3 (03:30→19:58)
[2018-09-21] MEDS: OXYCODONE HCL IR 5 MG TAB (IMMEDIATE RELEASE) PO PRN ×3 (03:30→20:05)
[2018-09-21] MEDS: INSULIN ASPART 100 UNITS/ML 3 ML PEN SC SCH ×4 (06:35→21:43)
[2018-09-21] MEDS: LACTOBACILLUS ACIDOPHILUS (FLORANEX) TAB PO SCH ×4 (06:35→21:53)
[2018-09-21] MEDS: AMMONIUM LACTATE 12% LOTION 225 GM BTL EXT SCH ×2 (06:35→21:53)
[2018-09-21 07:57] LABS: Basophils # (auto) 0.02 K/uL (0-0.2); Basophils % (auto) 0.2 %; Eosinophils # (auto) 0.16 K/uL (0-0.5); Eosinophils % (auto) 1.6 %; Hematocrit (blood only) 25.7 % (42-52); Hemoglobin 8.4 g/dL (14.0-18.0); Immature Granulocytes # (auto) 0.02 K/uL (0.00-0.02); Immature Granulocytes % (auto) 0.2 %; Lymphocytes # (auto) 3.27 K/uL (1.2-3.4); Lymphocytes % (auto) 32.2 %; Mean Corpuscular Hgb Conc 32.7 g/dL (32-36); Mean Corpuscular Volume 91.1 fL (80-100); Mean Platelet Volume 7.7 fL (7.4-10.4); Monocytes # (auto) 0.56 K/uL (0.11-0.59); Monocytes % (auto) 5.5 %; Neutrophils # (auto) 6.11 K/uL (1.4-6.5); Neutrophils % (auto) 60.3 %; Platelet Count 335 K/uL (130-400); RDW Coefficient of Variation 14.6 % (11.5-14.5); RDW Standard Deviation 49.1 fL (36.4-46.3); Red Blood Count 2.82 M/uL (4.7-6.1); White Blood Count 10.14 K/uL (4.8-10.8)
[2018-09-21 08:32] LABS: Albumin Level 1.2 gm/dl (3.4-5.0); Bilirubin,Total 0.3 mg/dl (0.1-1); Calcium 7.9 mg/dl (8.5-10.1); Creatinine Clr Calc Pharmacy 57.2 ml/min; Est GFR (African American) 47.7; Est GFR (Non-African American) 41.2; Potassium 4.3 mmol/L (3.5-5.1)
[2018-09-21 08:36] LABS: Albumin Globulin Ratio 0.2 (0.9-2); Globulin 5.5 gm/dl (2.5-4.0); Total Protein 6.7 gm/dl (6.4-8.2)
[2018-09-21 08:54] LABS: RBC Morphology Unremarkable
--- NOTE | 2018-09-21 09:40 | Operative Report ---
DATE OF OPERATION: 09/20/2018 PROCEDURE: Right-sided ultrasound-guided thoracentesis. INDICATIONS: Large right-sided pleural effusion in a patient with a multilobar right-sided pneumonia with possible necrotizing pneumonia to rule out empyema or parapneumonic effusion. CONSENT: Informed consent was obtained from the patient himself after indications, potential complications and alternative managements were discussed with him. The written consent was provided by the patient freely and witnessed by the nursing staff and placed in his chart. MONITORING: Throughout the procedure, the nurse monitored the patient's pulse oximetry and blood pressure. DESCRIPTION OF THE PROCEDURE: After timeout was performed,we had identified a large loculus of pleural fluid using the ultrasound and marked the skin at the superior border of the 8th rib midway between the posterior spine of the vertebral column and the posterior axillary line. Subsequently the right posterior aspect of the thorax was prepared and draped in the usual sterile fashion using chlorhexidine prep. We used 1% lidocaine to infiltrate the skin and the subcutaneous tissue in the previously marked location. The anesthetic needle was then advanced until pleural fluid was obtained and then local anesthesia was applied to the parietal pleura as we withdrew the needle. Subsequently, a 0.5 cm horizontal incision was made in the skin at the specified location. The thoracentesis needle was then inserted into the marked location and through the incision made while applying suction to the attached syringe. It was advanced into the thorax into the pleural cavity until fluid flashback was noted at which point the plastic catheter was advanced into the pleural space and the needle retracted. A total of 1100 mL of clear sterile fluid was drained and sent for testing and cultures. The patient at around 1100 mL started to cough and complained of chest pain on inspiration. At that point, we stopped the procedure and withdrew the catheter and applied a Band-Aid. COMPLICATIONS: None apparent. The patient's cough and discomfort subsided spontaneously. Ultrasound at the bedside was used to ascertain in the absence of pneumothorax and then a chest x-ray procedure also verified the absence of pneumothorax. The patient remained in a stable condition on room air. I attest to the content of the Intraoperative Record and any orders documented therein. Any exceptions are noted below. MTDD
[2018-09-21] MEDS: OXYCODONE HCL 15 MG TABCR (OXYCONTIN) PO SCH ×2 (11:46→23:47)
[2018-09-21] MEDS: VANCOMYCIN HCL 1,000 MG in SODIUM CHLORIDE 0.9% 250 ML IV SCH (13:17)
[2018-09-21] MEDS: HYDROmorphone INJ 1 MG/ML SYRINGE IV PRN ×3 (14:02→21:51)
--- NOTE | 2018-09-21 14:37 | Hospitalist Progress Note ---
Date of Service September 21, 2018 Assessment & Plan (1) Pneumonia: CT chest 09/18 shows cavitations in right lower lobe, consistent with necrotizing pneumonia clinically, the patient has no right sided chest pain has a more productive cough today after thoracentesis yesterday, clearing out some secretions he is afebrile, WBC still normal continue on Vancomycin and Zosyn for now diagnostic thoracentesis performed 09/20 at the bedside by Dr. Fair await cultures pulmonology planning on discussing with thoracic surgery could consider septic emboli given his septic joint and bacteremia at [place] blood cultures here are negative there was a report of him having a Strep pneumoniae positive blood culture at [place] (2) Septic arthritis: Consult orthopedic surgery-greatly appreciate assistance Empiric antibiotic coverage with vancomycin and Zosyn Consulted Infectious disease sent records request to [place] again on 09/17 specifically asking for all microbiology results blood cultures, synovial cultures, operative cultures will help narrow down IV antibiotics nothing sent yet pain control: add Oxycontin 15mg BID, Oxycodone 10mg q4 PRN, Dilaudid strictly for breakthrough want his pain controlled to participate with therapy monitor for any excessive sedation but patient has been completely alert entire stay, even on [employer] pump ultimately patient will need to follow up at [place] for repeat TKA once spacer in place for 6 weeks and completed 6 weeks of IV antibiotics for the time being his TKA would be put on hold until necrotizing pneumonia adequately treated PT/OT has been ordered, patient needs to participate more (3) Cirrhosis, alcoholic: new diagnosis, patient with cirrhotic morphology of liver on CT scan has ascites on exam, peripheral edema, albumin is very low at 1.0 heavy drinking, has not had alcohol in 7-8 weeks since he has been in hospital will recommend gastroenterology consult as outpatient will check hepatitis B and C (4) BISHOP (acute kidney injury): Cr persistently high at 1.7-1.8, 1.8 today continue choi maintaining his own hydration, no need for IV fluids, Cr did not improve with them likely multifactorial with inflammatory state, abscesses no proteinuria on three separate UA, doubt glomerulonephritis, no hematuria either, no casts could be due to cirrhosis as well sent UPEP and SPEP, awaiting results continue to monitor closely (5) Anemia: Hb stable at 8 will repeat tomorrow no signs of active bleeding he has a recent history of ERCP in May considered multiple myeloma as possibility, CT 09/18 did not show any lytic lesions likely from malnutrition, cirrhosis * (6) Hypertension: BP stable not going to add anything at this time (7) Borderline diabetes: Blood surgars have been routinely elevated above 200. patient refusing Novolog and then sugars do return to normal on their own Will continue to monitor. Interesting his A1C is 5.6 * (8) Gastric ulcer: h/o gastric ulcer Protonix 40 mg p.o. daily (9) Edema, peripheral: Patient with peripheral edema. Serum albumin of 1.0 Per report he is status post gastric bypass. Question malnutrition as well as deconditioning after prolonged hospital stay and chronic illness. UA negative for protein. also, likely some edema due to cirrhosis heavy alcohol abuse (10) Alcohol abuse: patient was drinking a fifth a day as well as beer up until 6-7 weeks ago caused him to move out of his home here in [place] and back to [place] no signs of withdrawal as he would have gone through that at [place] discussed cirrhosis diagnosis with he and his he says he is never going to touch alcohol again Subjective patient more optimistic today, but says he has been coughing more has some chest discomfort with the cough bringing up a lot more mucous, thick secretions reviewed labs, Hb stable at 8 and Cr stable at 1.8 pleural fluid was clear, awaiting culture results says that pain is worse in knees, asked for more pain control told him that he needs to be participating in therapy that he needs to keep moving if he wants to improve discussed with pulmonology, appreciate their recommendations Review of Systems All systems reviewed & are unremarkable except as noted in HPI & below Constitutional: + weakness Respiratory: + cough, + chest congestion and + sputum production Cardiovascular: + chest pain (mild, with cough) and + dyspnea on exertion Musculoskeletal: + back pain, + joint pain (left knee), + stiffness (left knee) and + limited range of motion (left knee) Psychiatric: + depression and + hopelessness Physical Exam 2 Vital Signs (Past 24 Hours): Last Vital Signs Temp 36.9 C 09/21/18 07:47 Pulse 75 09/21/18 07:47 Resp 18 09/21/18 07:47 BP 157/89 H 09/21/18 07:47 Pulse Ox 97 09/21/18 07:47 Constitutional: WD/WN, vitals as above Eyes: PERRL, conjunctivae normal, anicteric sclerae ENMT: external ear and nose normal, oropharynx normal Neck: trachea midline, no thyromegaly Respiratory: normal respiratory effort, lungs clear to auscultation normal respiratory effort; no respiratory distress and no labored breathing Cardiovascular: RRR, no murmur, no edema Gastrointestinal (Abdomen): normal bowel sounds, soft, nontender, no hepatosplenomegaly Musculoskeletal: Head/Neck/Chest: normocephalic and head atraumatic Extremities: + limited ROM of extremities (left knee) and + joint enlargement ( left knee) Skin: no rashes, warm and dry Neurologic: patellar DTR's 2+ bilat, sensation intact and PERRL, EOMI, accommodation nl, no face palsy, no dysarthria Psychiatric: Orientation: alert and oriented x 3 Mood: + depressed mood and + irritable mood Lymphatic: no cervical or axillary lymphadenopathy Results & Data Laboratory Results Laboratory Results - last 24 hr 09/19/18 09/20/18 09/20/18 14:00 16:10 18:23 WBC RBC Hgb Hct MCV MCH MCHC RDW Std Deviation RDW Coeff of Leatha Plt Count MPV Immature Gran % (Auto) Neut % (Auto) Lymph % (Auto) Haywood % (Auto) Eos % (Auto) Baso % (Auto) Immature Gran # (Auto) Neut # (Auto) Lymph # (Auto) [place]wood # (Auto) Eos # (Auto) Baso # (Auto) RBC Morphology Sodium Potassium Chloride Carbon Dioxide Anion Gap BUN Creatinine Est Cr Clr Drug Dosing Est GFR ( Amer) Est GFR (Non-Af Amer) BUN/Creatinine Ratio Glucose POC Glucose 356 H* 124 H Calcium Total Bilirubin AST ALT Alkaline Phosphatase Lactate Dehydrogenase Total Protein Albumin Globulin Albumin/Globulin Ratio Urine Total Volume Cancelled Ur Creatinine mg/dL Cancelled Ur Total Protein Conc Cancelled Ur Total Protein 24 Hr Cancelled Protein/Creat Ratio 24h Cancelled Urine Albumin (%) Cancelled U Qrxgx-7-Ngzhjhda (%) Cancelled U Vctmv-3-Jokflatt (%) Cancelled U Beta Globulin (%) Cancelled U Gamma Globulin (%) Cancelled Urine PEP Interpret Cancelled Pleural Fluid Source Pleural Color Pleural Appearance Pleural WBC Pleural RBC Pleural Polynuclear % Pleural Mononuclear % Pleural Total Protein Pleural Albumin Pleural LDH Pleural Triglycerides 09/20/18 09/20/18 09/20/18 20:17 Unknown Unknown WBC RBC Hgb Hct MCV MCH MCHC RDW Std Deviation RDW Coeff of Leatha Plt Count MPV Immature Gran % (Auto) Neut % (Auto) Lymph % (Auto) Haywood % (Auto) Eos % (Auto) Baso % (Auto) Immature Gran # (Auto) Neut # (Auto) Lymph # (Auto) Haywood # (Auto) Eos # (Auto) Baso # (Auto) RBC Morphology Sodium Potassium Chloride Carbon Dioxide Anion Gap BUN Creatinine Est Cr Clr Drug Dosing Est GFR ( Amer) Est GFR (Non-Af Amer) BUN/Creatinine Ratio Glucose POC Glucose 95 Calcium Total Bilirubin AST ALT Alkaline Phosphatase Lactate Dehydrogenase Total Protein Albumin Globulin Albumin/Globulin Ratio Urine Total Volume Ur Creatinine mg/dL Ur Total Protein Conc Ur Total Protein 24 Hr Protein/Creat Ratio 24h Urine Albumin (%) U Nmdhj-6-Zivojfum (%) U Xeusj-1-Ljnrpyui (%) U Beta Globulin (%) U Gamma Globulin (%) Urine PEP Interpret Pleural Fluid Source RIGHT LUNG Pleural Color PALE YELLOW Pleural Appearance CLOUDY Pleural WBC 444 Pleural RBC < 3000 Pleural Polynuclear % 61.1 Pleural Mononuclear % 38.9 Pleural Total Protein 2.7 Pleural Albumin < 0.6 < 0.6 Pleural LDH 108 Pleural Triglycerides 13 09/21/18 09/21/18 09/21/18 07:19 07:40 07:40 WBC 10.14 RBC 2.82 L Hgb 8.4 L Hct 25.7 L MCV 91.1 MCH 29.8 MCHC 32.7 RDW Std Deviation 49.1 H RDW Coeff of Leatha 14.6 H Plt Count 335 MPV 7.7 Immature Gran % (Auto) 0.2 Neut % (Auto) 60.3 Lymph % (Auto) 32.2 Haywood % (Auto) 5.5 Eos % (Auto) 1.6 Baso % (Auto) 0.2 Immature Gran # (Auto) 0.02 Neut # (Auto) 6.11 Lymph # (Auto) 3.27 Haywood # (Auto) 0.56 Eos # (Auto) 0.16 Baso # (Auto) 0.02 RBC Morphology Unremarkable Sodium 143 Potassium 4.3 Chloride 111 H Carbon Dioxide 26 Anion Gap 7.0 BUN 20 H Creatinine 1.80 H Est Cr Clr Drug Dosing 57.2 Est GFR ( Amer) 47.7 Est GFR (Non-Af Amer) 41.2 BUN/Creatinine Ratio 11.0 Glucose 76 POC Glucose 90 Calcium 7.9 L Total Bilirubin 0.3 AST 24 ALT 17 Alkaline Phosphatase 73 Lactate Dehydrogenase Total Protein 6.7 Albumin 1.2 L Globulin 5.5 H Albumin/Globulin Ratio 0.2 L Urine Total Volume Ur Creatinine mg/dL Ur Total Protein Conc Ur Total Protein 24 Hr Protein/Creat Ratio 24h Urine Albumin (%) U Mbybh-1-Louanplh (%) U Aaeih-2-Mahxnyxk (%) U Beta Globulin (%) U Gamma Globulin (%) Urine PEP Interpret Pleural Fluid Source Pleural Color Pleural Appearance Pleural WBC Pleural RBC Pleural Polynuclear % Pleural Mononuclear % Pleural Total Protein Pleural Albumin Pleural LDH Pleural Triglycerides 09/21/18 09/21/18 07:40 11:28 WBC RBC Hgb Hct MCV MCH MCHC RDW Std Deviation RDW Coeff of Leatha Plt Count MPV Immature Gran % (Auto) Neut % (Auto) Lymph % (Auto) [place] % (Auto) Eos % (Auto) Baso % (Auto) Immature Gran # (Auto) Neut # (Auto) Lymph # (Auto) Haywood # (Auto) Eos # (Auto) Baso # (Auto) RBC Morphology Sodium Potassium Chloride Carbon Dioxide Anion Gap BUN Creatinine Est Cr Clr Drug Dosing Est GFR ( Amer) Est GFR (Non-Af Amer) BUN/Creatinine Ratio Glucose POC Glucose 142 H Calcium Total Bilirubin AST ALT Alkaline Phosphatase Lactate Dehydrogenase 197 Total Protein Albumin Globulin Albumin/Globulin Ratio Urine Total Volume Ur Creatinine mg/dL Ur Total Protein Conc Ur Total Protein 24 Hr Protein/Creat Ratio 24h Urine Albumin (%) U Wcynw-4-Jmpypchc (%) U Bcamc-1-Uxeoecsf (%) U Beta Globulin (%) U Gamma Globulin (%) Urine PEP Interpret Pleural Fluid Source Pleural Color Pleural Appearance Pleural WBC Pleural RBC Pleural Polynuclear % Pleural Mononuclear % Pleural Total Protein Pleural Albumin Pleural LDH Pleural Triglycerides Medications Administered Current Inpatient Medications Acetaminophen (Tylenol) 650 mg PO Q4H PRN PRN Reason: pain/fever Stop: 10/10/18 18:42 Last Admin: 09/15/18 00:08 Dose: 650 mg Dextrose (Dextrose 50%) 25 - 50 ml IV UD PRN; Protocol PRN Reason: Hypoglycemia Protocol Stop: 10/15/18 11:08 Enoxaparin Sodium (Lovenox) 40 mg SQ PM JERSON Stop: 10/10/18 20:59 Last Admin: 09/20/18 20:42 Dose: 40 mg Glucagon (Glucagen) 1 mg IM UD PRN; Protocol PRN Reason: Hypoglycemia Protocol Stop: 10/15/18 11:08 Glucose (Glucose 40%) 15 - 30 gm PO UD PRN; Protocol PRN Reason: Hypoglycemia Protocol Stop: 10/15/18 11:08 Glucose (Dex4 Glucose) 4 - 8 tabs PO UD PRN; Protocol PRN Reason: Hypoglycemia Protocol Stop: 10/15/18 11:08 Hydromorphone HCl (Dilaudid) 1 mg IV Q4H PRN PRN Reason: Severe Pain Stop: 10/05/18 10:59 Last Admin: 09/21/18 14:02 Dose: 1 mg Piperacillin Sod/Tazobactam (Sod 3.375 gm/ Dextrose) 115 mls @ 28.75 mls/hr IV Q8H JERSON; Protocol Stop: 10/22/18 19:59 Last Admin: 09/21/18 11:47 Dose: 29 mls/hr Vancomycin HCl 1,000 mg/ (Sodium Chloride) 270 mls @ 125 mls/hr IV DAILY@1400 JERSON Stop: 10/29/18 13:59 Last Admin: 09/21/18 13:17 Dose: 125 mls/hr Albumin Human (Albumin 25%) 50 mls @ 50 mls/hr IV Q12H ON LICENSE OF [facility] Stop: 09/23/18 01:59 Last Infusion: 09/21/18 13:44 Dose: Infused Insulin Aspart (Novolog Flexpen) 0 units SC ACHS JERSON Stop: 10/15/18 11:29 Last Admin: 09/21/18 10:20 Dose: Not Given Lactic Acid (Amlactin) 1 gm EXT BID JERSON Stop: 10/16/18 20:59 Last Admin: 09/21/18 06:35 Dose: Not Given Lactobacillus Acidophilus (Floranex) 4 tab PO QIDM JERSON Stop: 10/12/18 16:59 Last Admin: 09/21/18 10:21 Dose: Not Given Lidocaine (Lidoderm 5%) 2 patch TD HS JERSON Stop: 10/11/18 21:59 Last Admin: 09/20/18 20:45 Dose: Not Given Lorazepam (Ativan) 1 mg PO HS PRN PRN Reason: Insomnia Stop: 10/13/18 19:00 Last Admin: 09/20/18 20:44 Dose: 1 mg Miscellaneous (Remove Lidoderm Patch) 2 ea N/A QAM JERSON Stop: 10/12/18 08:59 Last Admin: 09/21/18 06:35 Dose: Not Given Miscellaneous (Carbohydrates For Hypoglycemia) 15 - 30 gm PO UD PRN PRN Reason: Hypoglycemia Treatment Stop: 10/15/18 11:08 Last Admin: 09/15/18 16:24 Dose: 15 gm Miscellaneous Information (Consult) 1 ea N/A UD PRN PRN Reason: Consult Stop: 10/10/18 18:42 Miscellaneous Information (Consult) 1 ea N/A UD PRN PRN Reason: Consult Stop: 10/10/18 18:42 Ondansetron HCl (Zofran) 4 mg IV Q6H PRN PRN Reason: Nausea Stop: 10/10/18 18:42 Last Admin: 09/13/18 08:37 Dose: 4 mg Oxycodone HCl (Roxicodone Immediate Rel) 10 mg PO Q4 PRN PRN Reason: Pain Stop: 10/01/18 12:53 Last Admin: 09/21/18 08:22 Dose: 10 mg Oxycodone HCl (Oxycontin) 15 mg PO Q12H JERSON Stop: 10/05/18 10:59 Last Admin: 09/21/18 11:46 Dose: 15 mg _ (1) Anemia Anemia type: unspecified type Bone marrow failure anemia type: Chronic kidney disease stage: Folate deficiency anemia type: Hemolytic anemia type: Iron deficiency anemia type: Other causes of anemia: Vitamin B12 deficiency anemia type: Qualified Code(s): D64.9 - Anemia, unspecified (2) Septic arthritis Laterality: left Septic arthritis location: knee Septic arthritis organism: due to unspecified organism Qualified Code(s): M00.9 - Pyogenic arthritis, unspecified (3) Gastric ulcer Gastric ulcer chronicity: unspecified ulcer chronicity Gastric ulcer complication status: unspecified whether hemorrhage or perforation present Qualified Code(s): K25.9 - Gastric ulcer, unspecified as acute or chronic, without hemorrhage or perforation (4) Hypertension Hypertension type: essential hypertension Qualified Code(s): I10 - Essential (primary) hypertension (5) Pneumonia Aspiration pneumonia type: Laterality: right Lung location: unspecified part of lung Pneumonia type: due to unspecified organism Qualified Code(s): J18.9 - Pneumonia, unspecified organism
[2018-09-21] MEDS: ENOXAPARIN INJ 40 MG/0.4 ML SYR SQ SCH (21:51)
[2018-09-21] MEDS: LIDOCAINE 5% 1 PATCH TD SCH ×2 (21:53→22:00)
[2018-09-21] MEDS: LORazepam 1 MG TAB PO PRN (22:42)
[2018-09-22] MEDS: ALBUMIN 25% 50 ML IV SCH ×2 (00:09→13:08)
[2018-09-22] MEDS: HYDROmorphone INJ 1 MG/ML SYRINGE IV PRN ×5 (05:02→21:27)
[2018-09-22] MEDS: PIPERACILLIN/TAZOBACTAM 3.375 GM in DEXTROSE 5% 100 ML IV SCH ×3 (05:04→19:33)
[2018-09-22] MEDS: INSULIN ASPART 100 UNITS/ML 3 ML PEN SC SCH ×4 (08:16→21:26)
[2018-09-22] MEDS: OXYCODONE HCL IR 5 MG TAB (IMMEDIATE RELEASE) PO PRN ×4 (08:28→23:45)
[2018-09-22] MEDS: LACTOBACILLUS ACIDOPHILUS (FLORANEX) TAB PO SCH ×5 (08:28→21:23)
[2018-09-22] MEDS: AMMONIUM LACTATE 12% LOTION 225 GM BTL EXT SCH ×2 (08:30→21:26)
[2018-09-22 09:09] LABS: Hematocrit (blood only) 26.3 % (42-52); Hemoglobin 8.2 g/dL (14.0-18.0); Mean Corpuscular Hgb Conc 31.2 g/dL (32-36); Mean Platelet Volume 8.1 fL (7.4-10.4); Platelet Count 355 K/uL (130-400); RDW Coefficient of Variation 14.6 % (11.5-14.5); RDW Standard Deviation 49.5 fL (36.4-46.3); Red Blood Count 2.86 M/uL (4.7-6.1); White Blood Count 10.13 K/uL (4.8-10.8)
[2018-09-22 09:27] LABS: Albumin Level 1.3 gm/dl (3.4-5.0); BUN Creatinine Ratio 9.5 (10-20); Calcium 7.7 mg/dl (8.5-10.1); Creatinine Clr Calc Pharmacy 51.8 ml/min; Est GFR (African American) 42.3; Est GFR (Non-African American) 36.5
[2018-09-22 09:30] LABS: Albumin Globulin Ratio 0.2 (0.9-2); Bilirubin,Total 0.2 mg/dl (0.1-1); Globulin 5.6 gm/dl (2.5-4.0); Total Protein 6.9 gm/dl (6.4-8.2)
[2018-09-22 09:55] LABS: Hepatitis B Surface Antibody Non-Immune
[2018-09-22 10:05] LABS: Hepatitis B Surface Antigen Neg (Neg)
[2018-09-22] MEDS: OXYCODONE HCL 15 MG TABCR (OXYCONTIN) PO SCH ×2 (11:07→23:12)
--- NOTE | 2018-09-22 12:59 | Nephrology Consultation ---
Date of Consultation September 22, 2018 Assessment & Plan (1) BISHOP (acute kidney injury): -- BISHOP likely related to acute inflammation / underlying infection. Possible infection related GN. Creatinine has been relatively stable since admission. Electrolyte balance is acceptable. Patient remains nonoliguric -- 09/[address] reviewed: No obstruction -- Urinalysis 09/10: Negative for protein, blood related to Diop catheter -- 24 hour urine studies and immunoelectropheresis studies pending -- Monitor serial PRP (2) Septic arthritis: -- Recommend narrowing antibiotic spectrum. Consider stopping Vancomycin if possible -- Await culture results from [facility] -- Await further input from ID (3) Pneumonia: -- Consider consultation w/ Pulmonology. Question whether bronchoscopy w / culture would be of benefit (4) Cirrhosis, alcoholic: (5) History of intravenous drug abuse: (6) PTSD (post-traumatic stress disorder): History of Present Illness Reason for Consultation: Acute kidney injury Attending Physician: Barry Hernandez, DO History of Present Illness Mr. Ramon is a 58 year old male who is seen & examined at the request of Dr. Hernandez for evaluation of acute kidney injury. Medical records in the EMR were reviewed and are summarized as follows: Mr. Ramon has no previous h/o kidney disease. His baseline creatinine was 0.7 in 05/25. His medical history is significant for PTSD, alcohol abuse, cirrhosis, h/o IVDA and heroine OD, HTN, obesity s/p gastric bypass, OA s/p bilateral knee replacement. Mr. Ramon reports several surgical procedures to his L knee. He was hospitalized ~ 1 month ago at [facility] due to infection of his L knee prosthesis. He required explant of the prosthesis and insertion of an antibiotic spacer. Mr. Ramon left the hospital AMA and came to [place], [place] where he maintains a residence. Mr. Ramon was admitted to [facility] 09/10/18 for evaluation of fever and weakness. He was diagnosed w/ bilateral pneumonia and treated w/ IV Vancomycin and Zosyn. Despite antibiotic therapy he has developed cavitary lesions within the lungs. A diagnostic thoracentesis was performed 09/20/18. Results are pending. Serum creatinine has gradually risen from 1.5 on admission to 1.9. Patient remains nonoliguric. Urinalysis was negative for protein. Abdominal CT 09/18/18 was negative for hydronephrosis. Blood and urine cultures have been NGTD since admission. Allergies Allergy/AdvReac Type Severity Reaction Status Date / Time No Known Allergies Allergy Verified 09/10/18 06:28 Home Medications Home Medications Medication Instructions Recorded Confirmed Type Unobtainable 09/10/18 09/10/18 History Patient History Medical History PTSD (post-traumatic stress disorder) (Chronic) Heroin overdose (Chronic) Borderline diabetes High blood pressure Surgical History History of gastric bypass History of hernia repair Hx of foot surgery Status post left knee replacement With multiple revisions. Presently with antibiotic spacer in place Family History Other Diabetes Heart disease Social History Current Living Situation: Spouse Other Information That Helps Us Care for You: No Feels Safe at Home: Yes Safety Concerns: Feels Safe At This Time Smoking Status: Former smoker Tobacco Type: cigarettes Hx Alcohol Use: Yes Alcohol Intake Frequency: 3 or more drinks per day Hx Substance Use: Yes substance use type: former substance user, heroin and IV drugs Beliefs That Will Affect Care: None Communication Ability: Impaired Review of Systems Constitutional: + weakness; no fever Respiratory: + cough and + change in sputum Cardiovascular: no chest pain Gastrointestinal: no abdominal pain Physical Exam 2 Vital Signs (Past 24 Hours): Last Vital Signs Temp 37.1 C 09/22/18 07:51 Pulse 76 09/22/18 07:51 Resp 20 09/22/18 07:51 BP 151/89 H 09/22/18 07:51 Pulse Ox 94 09/22/18 07:51 Constitutional: Chronically ill appearing Eyes: + anicteric sclerae and PERRL ENMT: external ear and nose normal, oropharynx normal Neck: trachea midline, no thyromegaly palpable submandibular lymph nodes Respiratory: normal respiratory effort, lungs clear to auscultation Cardiovascular: Rate/Rhythm: regular rate and regular rhythm Extremities: + edema (trace pretibial pitting edema) Psychiatric: Orientation: + guarded Apperance: + disheveled Affect: + labile affect Mood: + depressed mood and + anxious mood Results & Data Laboratory Results Laboratory Tests 09/22/18 09/22/18 08:55 08:55 WBC 10.13 Hgb 8.2 L Hct 26.3 L Plt Count 355 Sodium 142 Potassium 4.0 Chloride 109 H Carbon Dioxide 25 BUN 19 H Creatinine 1.99 H Glucose 146 H Calcium 7.7 L Albumin 1.3 L Laboratory Tests 09/10/18 07:53 Urine Color Yellow Urine Appearance Clear Urine pH 7.5 Ur Specific [place] 1.011 Urine Protein Negative Urine Glucose (UA) Negative Urine Ketones Negative Urine Blood 3+ H Urine Nitrite Negative Ur Leukocyte Esterase Trace H Urine WBC (Auto) 5-10 H Urine RBC (Auto) >30 H 09/10/18 Blood & Urine cultures: NGTD 09/18/[address] - Kidneys: The unenhanced kidneys are normal in size and without hydronephrosis. There are least 2 small nonobstructing left renal calculi measuring up to 3 mm. A cyst is again noted in the upper pole of the left kidney. _ (1) Septic arthritis Laterality: left Septic arthritis location: knee Septic arthritis organism: due to unspecified organism Qualified Code(s): M00.9 - Pyogenic arthritis, unspecified (2) Pneumonia Aspiration pneumonia type: Laterality: right Lung location: unspecified part of lung Pneumonia type: due to unspecified organism Qualified Code(s): J18.9 - Pneumonia, unspecified organism
[2018-09-22] MEDS ORDERED: VANCOMYCIN TROUGH ONE (13:30)
[2018-09-22] MEDS: VANCOMYCIN HCL 1,000 MG in SODIUM CHLORIDE 0.9% 250 ML IV SCH (14:30)
--- NOTE | 2018-09-22 15:11 | Pharmacy Report ---
Pharmacy Abx Dose Short Note - Date of Service September 22, 2018 - Assessment & Plan Assessment 58 year old M receiving Vancomycin and Zosyn for treatment of septic arthritis/ pneumonia Day # 13 of antimicrobial therapy. Plan Laboratory Tests 09/22/18 13:53 Vancomycin Trough 16.2 Vancomycin * Trough level of 16.2 mcg/mL is therapeutic * Continue dose of 1000 mg IV every 24 hours * Goal trough level : 15 to 20 mcg/mL * Will check another trough level in 2-3 days. Pharmacy will continue to follow and will adjust dose/frequency as necessary. Thank you.
[2018-09-22 15:37] LABS: Appearance Urine Clear (Clear); Bacteria Urine Automated Negative (Negative); Bilirubin Urine Negative (Negative); Color Urine Yellow; Glucose Urine UA Negative (Negative); Ketones Urine Negative (Negative); Leukocyte Esterase Urine Trace (Negative); Nitrite Urine Negative (Negative); Protein Urine Negative (Negative); Urobilinogen Urine Negative (Negative); pH Urine 5.5 (4.5-7.5)
--- NOTE | 2018-09-22 16:09 | Hospitalist Progress Note ---
Date of Service September 22, 2018 Assessment & Plan (1) Pneumonia: CT chest 09/18 shows cavitations in right lower lobe, consistent with necrotizing pneumonia clinically, the patient has no right sided chest pain coughing less than yesterday, it is still productive he is afebrile, WBC still normal continue on Vancomycin and Zosyn for now diagnostic thoracentesis performed 09/20 at the bedside by Dr. Fair fluid with no cells, no bacteria seen, no growth on culture pulmonology planning on discussing with thoracic surgery could consider septic emboli given his septic joint and bacteremia at [place] blood cultures here are negative there was a report of him having a Strep pneumoniae positive blood culture at [facility] (2) Septic arthritis: Consult orthopedic surgery-greatly appreciate assistance Empiric antibiotic coverage with vancomycin and Zosyn Consulted Infectious disease sent records request to [facility] again on 09/17 specifically asking for all microbiology results blood cultures, synovial cultures, operative cultures will help narrow down IV antibiotics nothing sent yet pain control: better on Oxycontin 15mg BID, Oxycodone 10mg q4 PRN, Dilaudid strictly for breakthrough needs to focus on participating in therapy ultimately patient will need to follow up at [facility] for repeat TKA once spacer in place for 6 weeks and completed 6 weeks of IV antibiotics for the time being his TKA would be put on hold until necrotizing pneumonia adequately treated PT/OT has been ordered, patient needs to participate more (3) Cirrhosis, alcoholic: new diagnosis, patient with cirrhotic morphology of liver on CT scan has ascites on exam, peripheral edema, albumin is very low at 1.0 heavy drinking, has not had alcohol in 7-8 weeks since he has been in hospital hepatitis C preliminary positive, follow up on RNA hepatitis B negative, has surface Ab will consider inpatient GI consult because unsure when patient will be discharged (4) BISHOP (acute kidney injury): Cr persistently high at 1.7-1.8, 1.99 today continue choi maintaining his own hydration, no need for IV fluids, Cr did not improve with them likely multifactorial with inflammatory state, abscesses no proteinuria on three separate UA, doubt glomerulonephritis, no hematuria either, no casts could be due to cirrhosis as well sent UPEP and SPEP, awaiting results appreciate consult from Dr. Pozo (5) Anemia: Hb stable at 8.2 no signs of active bleeding he has a recent history of ERCP in May considered multiple myeloma as possibility, CT 09/18 did not show any lytic lesions likely from malnutrition, cirrhosis * (6) Hypertension: BP stable not going to add anything at this time (7) Borderline diabetes: Blood surgars have been routinely elevated above 200. patient refusing Novolog and then sugars do return to normal on their own Will continue to monitor. Interesting his A1C is 5.6 * (8) Gastric ulcer: h/o gastric ulcer Protonix 40 mg p.o. daily (9) Edema, peripheral: Patient with peripheral edema. Serum albumin of 1.0 Per report he is status post gastric bypass. Question malnutrition as well as deconditioning after prolonged hospital stay and chronic illness. UA negative for protein. also, likely some edema due to cirrhosis heavy alcohol abuse (10) Alcohol abuse: patient was drinking a fifth a day as well as beer up until 6-7 weeks ago caused him to move out of his home here in [place] and back to [place] no signs of withdrawal as he would have gone through that at [place] discussed cirrhosis diagnosis with he and his he says he is never going to touch alcohol again Subjective patient very upbeat, said his pain is a lot better asked him about therapy, he said a small woman came to help him, he said to come back with two people explained to him that he has to try, that he has to work on getting OOB to a chair updated him on Hepatitis C positive result, preliminary, he admitted to IV drug use when he was really young, brief time reviewed labs, Cr 1.9, Hb 8.2 appreciate nephrology consultation from Dr. Pozo Review of Systems All systems reviewed & are unremarkable except as noted in HPI & below Constitutional: + weakness Respiratory: + cough and + sputum production Cardiovascular: + dyspnea on exertion Musculoskeletal: + back pain, + joint pain (left knee), + stiffness (left knee) and + limited range of motion (left knee) Physical Exam 2 Vital Signs (Past 24 Hours): Last Vital Signs Temp 36.6 C 09/22/18 15:15 Pulse 71 09/22/18 15:15 Resp 20 09/22/18 15:15 BP 150/81 H 09/22/18 15:15 Pulse Ox 98 09/22/18 13:27 Constitutional: WD/WN, vitals as above Eyes: PERRL, conjunctivae normal, anicteric sclerae ENMT: external ear and nose normal, oropharynx normal Neck: trachea midline, no thyromegaly Respiratory: normal respiratory effort, lungs clear to auscultation normal respiratory effort; no respiratory distress and no labored breathing Cardiovascular: RRR, no murmur, no edema Gastrointestinal (Abdomen): normal bowel sounds, soft, nontender, no hepatosplenomegaly Musculoskeletal: Head/Neck/Chest: normocephalic and head atraumatic Extremities: + limited ROM of extremities (left knee) and + joint enlargement ( left knee) Skin: no rashes, warm and dry Neurologic: patellar DTR's 2+ bilat, sensation intact and PERRL, EOMI, accommodation nl, no face palsy, no dysarthria Psychiatric: A+Ox3, euthymic affect Lymphatic: no cervical or axillary lymphadenopathy Results & Data Laboratory Results Laboratory Results - last 24 hr 09/21/18 09/21/18 09/22/18 16:35 20:37 07:37 WBC RBC Hgb Hct MCV MCH MCHC RDW Std Deviation RDW Coeff of Leatha Plt Count MPV Sodium Potassium Chloride Carbon Dioxide Anion Gap BUN Creatinine Est Cr Clr Drug Dosing Est GFR ( Amer) Est GFR (Non-Af Amer) BUN/Creatinine Ratio Glucose POC Glucose 129 H 112 H 97 Calcium Total Bilirubin AST ALT Alkaline Phosphatase Total Protein Albumin Globulin Albumin/Globulin Ratio Urine Color Urine Appearance Urine pH Ur Specific [place] Urine Protein Urine Glucose (UA) Urine Ketones Urine Blood Urine Nitrite Urine Bilirubin Urine Urobilinogen Ur Leukocyte Esterase Urine WBC (Auto) Urine RBC (Auto) U Hyaline Cast (Auto) U Epithel Cells (Auto) Urine Bacteria (Auto) Vancomycin Trough Hep Bs Antigen Hep Bs Antibody Hep Bs Antibody, Quant Hepatitis C Antibody 09/22/18 09/22/18 09/22/18 08:55 08:55 08:55 WBC 10.13 RBC 2.86 L Hgb 8.2 L Hct 26.3 L MCV 92.0 MCH 28.7 MCHC 31.2 L RDW Std Deviation 49.5 H RDW Coeff of Leatha 14.6 H Plt Count 355 MPV 8.1 Sodium 142 Potassium 4.0 Chloride 109 H Carbon Dioxide 25 Anion Gap 8.0 BUN 19 H Creatinine 1.99 H Est Cr Clr Drug Dosing 51.8 Est GFR ( Amer) 42.3 Est GFR (Non-Af Amer) 36.5 BUN/Creatinine Ratio 9.5 L Glucose 146 H POC Glucose Calcium 7.7 L Total Bilirubin 0.2 AST 35 ALT 25 Alkaline Phosphatase 79 Total Protein 6.9 Albumin 1.3 L Globulin 5.6 H Albumin/Globulin Ratio 0.2 L Urine Color Urine Appearance Urine pH Ur Specific [place] Urine Protein Urine Glucose (UA) Urine Ketones Urine Blood Urine Nitrite Urine Bilirubin Urine Urobilinogen Ur Leukocyte Esterase Urine WBC (Auto) Urine RBC (Auto) U Hyaline Cast (Auto) U Epithel Cells (Auto) Urine Bacteria (Auto) Vancomycin Trough Hep Bs Antigen Neg Hep Bs Antibody Non-Immune Hep Bs Antibody, Quant < 3.10 L Hepatitis C Antibody Prelim Pos H 09/22/18 09/22/18 09/22/18 11:34 13:53 15:15 WBC RBC Hgb Hct MCV MCH MCHC RDW Std Deviation RDW Coeff of Leatha Plt Count MPV Sodium Potassium Chloride Carbon Dioxide Anion Gap BUN Creatinine Est Cr Clr Drug Dosing Est GFR ( Amer) Est GFR (Non-Af Amer) BUN/Creatinine Ratio Glucose POC Glucose 91 Calcium Total Bilirubin AST ALT Alkaline Phosphatase Total Protein Albumin Globulin Albumin/Globulin Ratio Urine Color Yellow Urine Appearance Clear Urine pH 5.5 Ur Specific [place] 1.010 Urine Protein Negative Urine Glucose (UA) Negative Urine Ketones Negative Urine Blood 3+ H Urine Nitrite Negative Urine Bilirubin Negative Urine Urobilinogen Negative Ur Leukocyte Esterase Trace H Urine WBC (Auto) 1-5 Urine RBC (Auto) >30 H U Hyaline Cast (Auto) 1-5 U Epithel Cells (Auto) 10-20 H Urine Bacteria (Auto) Negative Vancomycin Trough 16.2 Hep Bs Antigen Hep Bs Antibody Hep Bs Antibody, Quant Hepatitis C Antibody Medications Administered Current Inpatient Medications Acetaminophen (Tylenol) 650 mg PO Q4H PRN PRN Reason: pain/fever Stop: 10/10/18 18:42 Last Admin: 09/15/18 00:08 Dose: 650 mg Dextrose (Dextrose 50%) 25 - 50 ml IV UD PRN; Protocol PRN Reason: Hypoglycemia Protocol Stop: 10/15/18 11:08 Enoxaparin Sodium (Lovenox) 40 mg SQ PM JERSON Stop: 10/10/18 20:59 Last Admin: 09/21/18 21:51 Dose: 40 mg Glucagon (Glucagen) 1 mg IM UD PRN; Protocol PRN Reason: Hypoglycemia Protocol Stop: 10/15/18 11:08 Glucose (Glucose 40%) 15 - 30 gm PO UD PRN; Protocol PRN Reason: Hypoglycemia Protocol Stop: 10/15/18 11:08 Glucose (Dex4 Glucose) 4 - 8 tabs PO UD PRN; Protocol PRN Reason: Hypoglycemia Protocol Stop: 10/15/18 11:08 Hydromorphone HCl (Dilaudid) 1 mg IV Q4H PRN PRN Reason: Severe Pain Stop: 10/05/18 10:59 Last Admin: 09/22/18 13:07 Dose: 1 mg Piperacillin Sod/Tazobactam (Sod 3.375 gm/ Dextrose) 115 mls @ 28.75 mls/hr IV Q8H JERSON; Protocol Stop: 10/22/18 19:59 Last Admin: 09/22/18 11:07 Dose: 28.8 mls/hr Vancomycin HCl 1,000 mg/ (Sodium Chloride) 270 mls @ 125 mls/hr IV DAILY@1400 [facility] Stop: 10/29/18 13:59 Last Admin: 09/22/18 14:30 Dose: 125 mls/hr Albumin Human (Albumin 25%) 50 mls @ 50 mls/hr IV Q12H [facility] Stop: 09/23/18 01:59 Last Infusion: 09/22/18 14:10 Dose: Infused Insulin Aspart (Novolog Flexpen) 0 units SC ACHS [facility] Stop: 10/15/18 11:29 Last Admin: 09/22/18 12:21 Dose: Not Given Lactic Acid (Amlactin) 1 gm EXT BID JERSON Stop: 10/16/18 20:59 Last Admin: 09/22/18 08:30 Dose: 1 gm Lactobacillus Acidophilus (Floranex) 4 tab PO QIDM JERSON Stop: 10/12/18 16:59 Last Admin: 09/22/18 11:08 Dose: Not Given Lidocaine (Lidoderm 5%) 2 patch TD HS [facility] Stop: 10/11/18 21:59 Last Admin: 09/21/18 22:00 Dose: Not Given Lorazepam (Ativan) 1 mg PO HS PRN PRN Reason: Insomnia Stop: 10/13/18 19:00 Last Admin: 09/21/18 22:42 Dose: 1 mg Miscellaneous (Remove Lidoderm Patch) 2 ea N/A QAM [facility] Stop: 10/12/18 08:59 Last Admin: 09/22/18 08:29 Dose: Not Given Miscellaneous (Carbohydrates For Hypoglycemia) 15 - 30 gm PO UD PRN PRN Reason: Hypoglycemia Treatment Stop: 10/15/18 11:08 Last Admin: 09/15/18 16:24 Dose: 15 gm Miscellaneous Information (Consult) 1 ea N/A UD PRN PRN Reason: Consult Stop: 10/10/18 18:42 Miscellaneous Information (Consult) 1 ea N/A UD PRN PRN Reason: Consult Stop: 10/10/18 18:42 Ondansetron HCl (Zofran) 4 mg IV Q6H PRN PRN Reason: Nausea Stop: 10/10/18 18:42 Last Admin: 09/13/18 08:37 Dose: 4 mg Oxycodone HCl (Roxicodone Immediate Rel) 10 mg PO Q4 PRN PRN Reason: Pain Stop: 10/01/18 12:53 Last Admin: 09/22/18 14:33 Dose: 10 mg Oxycodone HCl (Oxycontin) 15 mg PO Q12H [facility]ERSON Stop: 10/05/18 10:59 Last Admin: 09/22/18 11:07 Dose: 15 mg _ (1) Anemia Anemia type: unspecified type Bone marrow failure anemia type: Chronic kidney disease stage: Folate deficiency anemia type: Hemolytic anemia type: Iron deficiency anemia type: Other causes of anemia: Vitamin B12 deficiency anemia type: Qualified Code(s): D64.9 - Anemia, unspecified (2) Septic arthritis Laterality: left Septic arthritis location: knee Septic arthritis organism: due to unspecified organism Qualified Code(s): M00.9 - Pyogenic arthritis, unspecified (3) Gastric ulcer Gastric ulcer chronicity: unspecified ulcer chronicity Gastric ulcer complication status: unspecified whether hemorrhage or perforation present Qualified Code(s): K25.9 - Gastric ulcer, unspecified as acute or chronic, without hemorrhage or perforation (4) Hypertension Hypertension type: essential hypertension Qualified Code(s): I10 - Essential (primary) hypertension (5) Pneumonia Aspiration pneumonia type: Laterality: right Lung location: unspecified part of lung Pneumonia type: due to unspecified organism Qualified Code(s): J18.9 - Pneumonia, unspecified organism
[2018-09-22] MEDS ORDERED: DiphenhydrAMINE HCL 50 MG/ML VIAL ONE (21:18)
[2018-09-22] MEDS: LIDOCAINE 5% 1 PATCH TD SCH (21:23)
[2018-09-22] MEDS: ENOXAPARIN INJ 40 MG/0.4 ML SYR SQ SCH (21:24)
[2018-09-22] MEDS: DiphenhydrAMINE HCL 50 MG/ML VIAL IV PRN (21:27)
[2018-09-22] MEDS: LORazepam 1 MG TAB PO PRN (23:12)
[2018-09-23] MEDS: ALBUMIN 25% 50 ML IV SCH (01:03)
[2018-09-23] MEDS: PIPERACILLIN/TAZOBACTAM 3.375 GM in DEXTROSE 5% 100 ML IV SCH ×3 (04:18→20:45)
[2018-09-23] MEDS: HYDROmorphone INJ 1 MG/ML SYRINGE IV PRN ×5 (06:29→23:15)
[2018-09-23 08:06] LABS: Albumin 1.4 G/DL (3.8-4.8); Alpha 1 Globulin 0.4 G/DL (0.2-0.3); Alpha 2 Globulin 0.8 G/DL (0.5-0.9); Beta-1-Globulin 0.3 G/DL (0.4-0.6); Beta-2-Globulin 0.6 G/DL (0.2-0.5); Gamma Globulin 2.4 G/DL (0.8-1.7); Monoclonal Protein Band 1 DNR G/DL (NOT DETECTED); Monoclonal Protein Band 2 DNR G/DL (NOT DETECTED); Monoclonal Protein Band 3 DNR G/DL (NOT DETECTED); Total Protein 5.9 G/DL (6.2-8.3)
[2018-09-23] MEDS: INSULIN ASPART 100 UNITS/ML 3 ML PEN SC SCH ×4 (08:11→19:31)
[2018-09-23] MEDS: LACTOBACILLUS ACIDOPHILUS (FLORANEX) TAB PO SCH ×4 (08:12→19:00)
[2018-09-23] MEDS: AMMONIUM LACTATE 12% LOTION 225 GM BTL EXT SCH ×2 (08:13→20:44)
[2018-09-23] MEDS: OXYCODONE HCL IR 5 MG TAB (IMMEDIATE RELEASE) PO PRN ×3 (08:13→21:06)
[2018-09-23] MEDS: DiphenhydrAMINE HCL 50 MG/ML VIAL IV PRN ×2 (08:32→23:09)
[2018-09-23 09:27] LABS: Calcium 7.8 mg/dl (8.5-10.1); Creatinine Clr Calc Pharmacy 53.9 ml/min; Est GFR (African American) 44.4; Est GFR (Non-African American) 38.3; Potassium 4.1 mmol/L (3.5-5.1)
--- NOTE | 2018-09-23 10:31 | Nephrology Progress Note ---
Date of Service September 23, 2018 Assessment & Plan (1) BISHOP (acute kidney injury): -- BISHOP likely related to acute inflammation / underlying infection. Possible infection related GN. Creatinine has been relatively stable since admission (peak Cr 1.9, baseline Cr ~ 0.9). Electrolyte balance is acceptable. Patient remains nonoliguric -- 09/[address] reviewed: No obstruction -- Urinalysis 09/10: Negative for protein, blood related to Diop catheter -- 24 hour urine studies and UIEP are pending -- SIEP c/w chronic inflammatory pattern -- Monitor serial PRP (2) Septic arthritis: -- Recommend narrowing antibiotic spectrum. Consider stopping Vancomycin if possible -- Await culture results from [facility] -- Await further input from ID (3) Pneumonia: -- Consider consultation w/ Pulmonology. Question whether bronchoscopy w / culture would be of benefit (4) Cirrhosis, alcoholic: (5) History of intravenous drug abuse: (6) PTSD (post-traumatic stress disorder): Subjective Mr. Ramon was seen & examined in his hospital room this morning. He c/o productive cough but denies fever, dyspnea or angina. He reports brisk UO. Constitutional: + weakness; no fever Respiratory: + cough and + change in sputum Physical Exam 2 Vital Signs (Past 24 Hours): Last Vital Signs Temp 37.1 C 09/23/18 07:00 Pulse 86 09/23/18 07:00 Resp 20 09/23/18 07:00 BP 146/70 H 09/23/18 07:00 Pulse Ox 98 09/23/18 07:00 Eyes: + anicteric sclerae and PERRL ENMT: external ear and nose normal, oropharynx normal Neck: trachea midline, no thyromegaly Respiratory: normal respiratory effort, lungs clear to auscultation Cardiovascular: Rate/Rhythm: regular rate and regular rhythm Extremities: + edema (trace pretibial pitting edema) Psychiatric: Orientation: + guarded Apperance: + disheveled Affect: + labile affect Mood: + depressed mood and + anxious mood Results & Data Laboratory Results Laboratory Tests 09/22/18 09/23/18 09/23/18 08:55 08:33 08:33 Hgb 8.0 L Hct 25.0 L Sodium 143 Potassium 4.1 Chloride 110 H Carbon Dioxide 27 BUN 19 H Creatinine 1.91 H Glucose 106 H Calcium 7.8 L Albumin 1.3 L _ (1) Septic arthritis Laterality: left Septic arthritis location: knee Septic arthritis organism: due to unspecified organism Qualified Code(s): M00.9 - Pyogenic arthritis, unspecified (2) Pneumonia Aspiration pneumonia type: Laterality: right Lung location: unspecified part of lung Pneumonia type: due to unspecified organism Qualified Code(s): J18.9 - Pneumonia, unspecified organism
[2018-09-23] MEDS: OXYCODONE HCL 15 MG TABCR (OXYCONTIN) PO SCH ×2 (11:52→23:04)
--- NOTE | 2018-09-23 12:32 | Progress Note ---
DATE: 09/23/2018 PULMONARY MEDICINE PROGRESS NOTE HISTORY OF PRESENT ILLNESS: A 58-year-old male with history of hypertension, former IV heroin and crack abuser as well as a history of alcohol abuse, borderline diabetes, alcoholic liver disease and recently diagnosed septic arthritis of left knee prosthesis that was treated at [facility] with the prosthesis removed and an antibiotic spacer device with an external stabilizer. Apparently, he was treated with IV antibiotics for 5 weeks. He signed himself out AMA and then came here, he was told he had a treatment for pneumonia, but did not feel comfortable with his treatment there, so signed himself out. He does have a previous over [id number] smoking history, having quit several months ago as well as history of IV drug abuse with heroin and use of crack cocaine. He states he has not done that for several months. Dr. Monson saw patient in consultation and I was seeing him today at the request of Dr. Barry Hernandez, the hospitalist. Infectious disease saw him on 09/12, recommended IV vancomycin and Zosyn, pending cultures. A culture of the left knee that was septic apparently grew out strep pneumonia, but that is not clear from limited records from [place] according to Dr. Barry Hernandez. Current CT scan on 09/18 shows extensive airspace opacities consistent with multifocal pneumonia and dense right middle lobe consolidation with multiple foci of cavitation, which favors a necrotizing pneumonia with possible lung abscess. Extensive right upper and right lower lobe airspace opacities also noted with multiple subpleural left lung opacities and septic emboli to be considered. Moderate right pleural effusion was noted and the patient underwent thoracentesis with Dr. Monson, apparently the fluid was stable. The patient has been in the [facility] for many years. For details of past medical history, medications, family and social history, I refer you to current and past record. PHYSICAL EXAMINATION: GENERAL: This is a well-developed black male, conversant, in no obvious respiratory distress. CURRENT VITAL SIGNS: Blood pressure 146/70, pulse 86 and regular, respiratory rate 20, temperature 37.1, O2 sat 98% on room air. SKIN: Without lesion. HEENT: Atraumatic, normocephalic. PERRLA. LUNGS: Markedly diminished breath sounds over the right posterior lung field and axillary region with egophony in the right mid axillary area. No audible wheezes. CARDIAC: Regular rate and rhythm. I do not appreciate a gallop. ABDOMEN: Soft, scaphoid. No evidence of hepatosplenomegaly. EXTREMITIES: Extensive edema involving both lower extremities, left greater than right. He has a hinged brace on the left. NEUROLOGICAL: No lateralizing signs. He is oriented x3. OTHER LABORATORY DATA: Most recent white count 10,000, H and H 8.0 and 25. Lowest H and H was 7.8 and 24.6 on 09/19. BUN 19, creatinine 1.9. PT, PTT acceptable. Positive for benzodiazepines on admission. Hepatitis C antibody positive and hepatitis B surface antibody 3.10. Pleural fluid, WBC is 444, total protein 2.7. LDH 108. Cultures negative. OVERALL ASSESSMENT: A 58-year-old black male, former heroin and crack drug abuser with very impressive CT scan of the chest showing dense consolidation right middle lobe with persistent air bronchograms along with infiltrates involving the right upper and lower lobe and subpleural densities involving the left lung. One certainly has to be concerned about septic emboli in this patient and necrotizing pneumonia. The bronchoscopic evaluation is warranted at this point in time and will ask a KIARA be considered as well. The patient is quite anemic and may eventually require a transfusion. QuantiFERON gold serology will need to be done as well and certainly the findings above besides representing a necrotizing pneumonia and possible lung abscess could very well be radiographic findings of previous drug abuse with resultant parenchymal abnormality associated with IV drug use.
--- NOTE | 2018-09-23 14:25 | Infectious Disease Progress Nt ---
Date of Service September 23, 2018 Assessment & Plan (1) Pneumonia: Patient with progressive cavitary pneumonia, not clear whether this is from septic emboli or whether pneumococcal infection was primary process. Certainly need to rule out other possibilities such as fungal infection or mycobacterial infection. Await bronchoscopy findings. Continue current antibiotics. Will follow. (2) Infection associated with internal left knee prosthesis: Subjective Patient seen in follow-up for pneumonia and septic arthritis. Recent events reviewed. Patient with extensive right middle lobe infiltrate with cavitation and air-fluid level seen on CT scan. Plans for bronchoscopy noted. Cultures from [place] reportedly grew strep pneumoniae. Patient underwent thoracentesis, fluid unremarkable, cultures are negative to date. Blood cultures here remain negative. Review of Systems All systems reviewed & are unremarkable except as noted in HPI & below Physical Exam 2 Vital Signs (Past 24 Hours): Last Vital Signs Temp 37.1 C 09/23/18 07:00 Pulse 86 09/23/18 07:00 Resp 20 09/23/18 07:00 BP 146/70 H 09/23/18 07:00 Pulse Ox 98 09/23/18 07:00 Constitutional: WD/WN, vitals as above comfortable; no acute distress Eyes: PERRL, conjunctivae normal, anicteric sclerae ENMT: external ear and nose normal, oropharynx normal Neck: trachea midline, no thyromegaly neck nontender Respiratory: no respiratory distress and does not use accessory muscles Rales and rhonchi with E to A changes right middle lobe Cardiovascular: Rate/Rhythm: regular rate and regular rhythm Heart Sounds: normal S1 and normal S2; no gallop, no murmur and no cardiac rub Gastrointestinal (Abdomen): normal bowel sounds, soft, nontender, no hepatosplenomegaly Musculoskeletal: no cyanosis or clubbing, extremities motor strength 5/5 No spinal tenderness, no joint swelling or erythema Skin: no rashes, warm and dry no lesions Neurologic: moves all extremities and awake; no focal motor deficits Motor/ Sensory: no sensory deficit Psychiatric: A+Ox3, euthymic affect Lymphatic: no cervical or axillary lymphadenopathy no inguinal lymphadenopathy Results & Data Laboratory Results Short CBC 09/23/18 Range/Units 08:33 Hgb 8.0 L (14.0-18.0) g/dL Hct 25.0 L (42-52) % BMP 09/23/18 08:33 Sodium 143 Potassium 4.1 Chloride 110 H Carbon Dioxide 27 BUN 19 H Creatinine 1.91 H Glucose 106 H Calcium 7.8 L Urine 09/22/18 Range/Units 15:15 Urine Color Yellow Urine Appearance Clear (Clear) Urine pH 5.5 (4.5-7.5) Ur Specific [place] 1.010 (1.000-1.030) Urine Protein Negative (Negative) Urine Glucose (UA) Negative (Negative) Diagnostic Findings Microbiology 09/23/18 12:11 Blood Cryptococcal Antigen - Final 09/20/18 Unknown Pleural Fluid Gram Stain - Final 09/20/18 Unknown Pleural Fluid Aerobic and Anaerobic Culture - Preliminary No growth to date. 09/10/18 07:19 Blood Blood Culture - Final No growth 09/10/18 07:10 Blood Blood Culture - Final No growth 09/13/18 12:17 Sputum, Expectorated Gram Stain - Final 09/13/18 12:17 Sputum, Expectorated Sputum Culture - Final Light normal xiomara. 09/10/18 07:53 Urine,Straight Cath Urine Culture - Final No growth - less than 1,000 colonies/mL. CT SCAN OF THE CHEST WITHOUT IV CONTRAST CLINICAL HISTORY: Follow-up pulmonary abscess status post thoracentesis. COMPARISON STUDY: Chest CT scans dated 09/18/2018 and 03/27/2011. TECHNIQUE: CT scan of the thorax was performed from the thoracic inlet to the upper abdomen. Images are reviewed in the axial, sagittal, and coronal planes. IV contrast was not administered for this examination as per the referring clinician. Note that the examination was performed in significant suboptimal fashion without IV contrast. A dose lowering technique was utilized adhering to the principles of ALARA. CT DOSE: 458.71 mGy.cm FINDINGS: Thyroid: The thyroid gland is enlarged and heterogeneous. Thoracic aorta: There is mild atherosclerotic calcification of the thoracic aorta, which is normal in caliber and demonstrates bovine variant arch anatomy. Heart: The heart is enlarged and without pericardial effusion. There is decreased attenuation of the cardiac blood pool as compared to the myocardium suggesting anemia. Lungs and pleural spaces: Secretions are noted in the trachea. There are small to moderate right and small left pleural effusions. The right pleural effusion has decreased in size from 09/18/2018. Again seen is dense airspace consolidation which expands the right middle lobe. Consolidative change is also seen throughout the right upper and right lower lobes. There is unchanged appearance of a multiloculated gas and fluid containing collection within the right middle lobe. This is best seen on image #190 and measures approximately 7.5 x 11 x 6 cm. Foci of predominantly subpleural consolidation are identified throughout the left lung, similar in appearance to previous. A 4 mm left upper lobe pulmonary nodule is again seen on image #80. Mediastinum: There is mediastinal lymphadenopathy. A right paratracheal node on image #87 measures 3.1 x 2.7 cm. There are also enlarged precarinal and subcarinal nodes. Kindra: Not well assessed with IV contrast. Axillae: There is no axillary lymphadenopathy. Upper abdomen: There are changes from previous gastric bypass surgery. Pneumobilia is again noted. There is intrahepatic biliary ductal dilatation. A small volume of upper abdominal ascites is observed. Enlarged cardiophrenic lymph nodes are similar to previous and measure up to 12 mm in short axis. Skeletal structures: No lytic or blastic bony lesions are seen. Soft tissues: There is anasarca of the body wall. IMPRESSION: 1. There are small to moderate right and small left pleural effusions. The right pleural effusion has decreased in size from 09/18/2018. 2. There is unchanged appearance of dense airspace consolidation which expanded the right middle lobe, as well as a large multiloculated gas and fluid containing collection within the right middle lobe. This likely represents necrotizing pneumonia and pulmonary abscess. 3. Patchy airspace consolidation is again seen throughout the remainder of the right lung. 4. Foci of predominantly subpleural consolidative change are again seen in the left lung. Septic emboli are a different consideration. 5. There is anasarca of the body wall with evidence of anemia. 6. There is a 4 mm left upper lobe pulmonary nodule. This is new from 03/27/1811 and follow-up is indicated. See below. 7. Mediastinal lymphadenopathy is unchanged and likely on a reactive basis. 8. Cardiomegaly. 9. Upper abdominal ascites. 10. Additional findings as above. _ (1) Pneumonia Aspiration pneumonia type: Laterality: right Lung location: unspecified part of lung Pneumonia type: due to unspecified organism Qualified Code(s): J18.9 - Pneumonia, unspecified organism
[2018-09-23] MEDS: SODIUM CHLORIDE 0.9% 1000ML 1,000 ML IV SCH (14:26)
[2018-09-23] MEDS: VANCOMYCIN HCL 1,000 MG in SODIUM CHLORIDE 0.9% 250 ML IV SCH (14:26)
--- NOTE | 2018-09-23 16:09 | Hospitalist Progress Note ---
Date of Service September 23, 2018 Assessment & Plan (1) Pneumonia: CT chest 09/18 shows cavitations in right lower lobe, consistent with necrotizing pneumonia clinically, the patient has no right sided chest pain coughing, intermittently productive he is afebrile, WBC normal most of the admission continue on Vancomycin and Zosyn for now diagnostic thoracentesis performed 09/20 at the bedside by Dr. aFir fluid with no cells, no bacteria seen, no growth on culture discussed with Dr. Sanches, plan for bronchoscopy tomorrow with appropriate cultures testing for HIV ordered will ask cardiology to consider performing KIARA to look for septic emboli, no murmurs on exam could consider septic emboli given his septic joint and bacteremia at [facility] blood cultures here are negative there was a report of him having a Strep pneumoniae positive blood culture at [facility] (2) Septic arthritis: Consult orthopedic surgery-greatly appreciate assistance Empiric antibiotic coverage with vancomycin and Zosyn Consulted Infectious disease sent records request to [facility] again on 09/17 specifically asking for all microbiology results blood cultures, synovial cultures, operative cultures will help narrow down IV antibiotics nothing sent yet pain control: better on Oxycontin 15mg BID, Oxycodone 10mg q4 PRN, Dilaudid strictly for breakthrough patient much more optimistic, he is participating in therapy, he genuinely wants to get better every day now ultimately patient will need to follow up at [facility] for repeat TKA once spacer in place for 6 weeks and completed 6 weeks of IV antibiotics for the time being his TKA would be put on hold until necrotizing pneumonia adequately treated and patient is stronger (3) Cirrhosis, alcoholic: new diagnosis, patient with cirrhotic morphology of liver on CT scan has ascites on exam, peripheral edema, albumin is very low at 1.0 heavy drinking, has not had alcohol in 7-8 weeks since he has been in hospital hepatitis C preliminary positive, follow up on RNA hepatitis B negative, has surface Ab hold on inpatient GI consult since he is compensated, should be referred to GI on discharge (4) BISHOP (acute kidney injury): Cr persistently high at 1.7-1.8, 1.91 today, down slightly from 1.99 continue choi maintaining his own hydration, no need for IV fluids, Cr did not improve with them likely multifactorial with inflammatory state, abscesses no proteinuria on three separate UA, doubt glomerulonephritis, no hematuria either, no casts could be due to cirrhosis as well sent UPEP and SPEP, awaiting results appreciate consult from Dr. Pozo, he will continue to follow (5) Anemia: Hb stable at 8.0 no signs of active bleeding he has a recent history of ERCP in May considered multiple myeloma as possibility, CT 09/18 did not show any lytic lesions likely from malnutrition, cirrhosis, alcohol abuse * (6) Hypertension: BP stable not going to add anything at this time (7) Borderline diabetes: Blood surgars have been routinely elevated above 200. patient refusing Novolog and then sugars do return to normal on their own Will continue to monitor. Interesting his A1C is 5.6 * (8) Gastric ulcer: h/o gastric ulcer Protonix 40 mg p.o. daily (9) Edema, peripheral: Patient with peripheral edema. Serum albumin of 1.0 Per report he is status post gastric bypass. Question malnutrition as well as deconditioning after prolonged hospital stay and chronic illness. UA negative for protein. also, likely some edema due to cirrhosis heavy alcohol abuse (10) Alcohol abuse: patient was drinking a fifth a day as well as beer up until 6-7 weeks ago caused him to move out of his home here in [place] and back to [place] no signs of withdrawal as he would have gone through that at [facility] discussed cirrhosis diagnosis with he and his he says he is never going to touch alcohol again Plan: bronchoscopy tomorrow to further evaluate necrotizing pneumonia on the right follow up with cardiology about performing KIARA continue to push patient to improve with PT/OT he is eating very well, trying to eat more protein, eating a lot of fish patient would like to go to [facility], will need to show good rehab potential and motivation to do well certainly he would have enough medical complexity doubt he would be ready for rehab this week, will depend on work up for pneumonia Subjective patient feeling well today, still eating well says his pain is very well controlled on current regimen says he is motivated, trying harder with therapy every day, wants to do better than yesterday discussed with Dr. Sanches, he plans to perform bronchoscopy tomorrow to investigate right sided necrotizing pneumonia he ordered HIV testing he is requesting cardiology consult for KIARA to look for source of septic emboli discussed with Dr. Serrano, appreciate his input reviewed labs, Cr stable at 1.9, Hb stable at 8.0 Review of Systems All systems reviewed & are unremarkable except as noted in HPI & below Respiratory: + cough and + sputum production Cardiovascular: + dyspnea on exertion Musculoskeletal: + back pain, + joint pain (left knee), + stiffness (left knee) and + limited range of motion (left knee) Physical Exam 2 Vital Signs (Past 24 Hours): Last Vital Signs Temp 36.5 C 09/23/18 15:01 Pulse 73 09/23/18 15:01 Resp 20 09/23/18 15:01 BP 154/82 H 09/23/18 15:01 Pulse Ox 96 09/23/18 15:01 Constitutional: WD/WN, vitals as above Eyes: PERRL, conjunctivae normal, anicteric sclerae ENMT: external ear and nose normal, oropharynx normal Neck: trachea midline, no thyromegaly Respiratory: normal respiratory effort, lungs clear to auscultation normal respiratory effort; no respiratory distress and no labored breathing Cardiovascular: RRR, no murmur, no edema Gastrointestinal (Abdomen): normal bowel sounds, soft, nontender, no hepatosplenomegaly Musculoskeletal: Head/Neck/Chest: normocephalic and head atraumatic Extremities: + limited ROM of extremities (left knee) and + joint enlargement ( left knee) Skin: no rashes, warm and dry Neurologic: patellar DTR's 2+ bilat, sensation intact and PERRL, EOMI, accommodation nl, no face palsy, no dysarthria Psychiatric: A+Ox3, euthymic affect Lymphatic: no cervical or axillary lymphadenopathy Results & Data Laboratory Results Laboratory Results - last 24 hr 09/19/18 09/22/18 09/23/18 05:19 17:00 08:33 Hgb 8.0 L Hct 25.0 L Sodium Potassium Chloride Carbon Dioxide Anion Gap BUN Creatinine Est Cr Clr Drug Dosing Est GFR ( Amer) Est GFR (Non-Af Amer) BUN/Creatinine Ratio Glucose POC Glucose 112 H Calcium Total Protein (PEP) 5.9 L Albumin (PEP) 1.4 L Nmnpv-9-Ibbqzzlba 0.4 H Jnmoh-9-Gjsvhixem 0.8 Puux-5-Rjlwzyjj 0.3 L Ssme-5-Maimikxs 0.6 H Gamma Globulins 2.4 H Monoclonal Peak 3 DNR Ser Monoclonl Protein DNR Ser Monoclonal Prot 2 DNR PEP Interpretation SEE NOTE 09/23/18 08:33 Hgb Hct Sodium 143 Potassium 4.1 Chloride 110 H Carbon Dioxide 27 Anion Gap 6.0 BUN 19 H Creatinine 1.91 H Est Cr Clr Drug Dosing 53.9 Est GFR ( Amer) 44.4 Est GFR (Non-Af Amer) 38.3 BUN/Creatinine Ratio 10.0 Glucose 106 H POC Glucose Calcium 7.8 L Total Protein (PEP) Albumin (PEP) Kkbal-9-Wdlmnczbg Yicok-6-Onupduikj Ufgo-7-Elvrcsdb Secf-1-Ydeiutcp Gamma Globulins Monoclonal Peak 3 Ser Monoclonl Protein Ser Monoclonal Prot 2 PEP Interpretation Medications Administered Current Inpatient Medications Acetaminophen (Tylenol) 650 mg PO Q4H PRN PRN Reason: pain/fever Stop: 10/10/18 18:42 Last Admin: 09/15/18 00:08 Dose: 650 mg Dextrose (Dextrose 50%) 25 - 50 ml IV UD PRN; Protocol PRN Reason: Hypoglycemia Protocol Stop: 10/15/18 11:08 Diphenhydramine HCl (Benadryl) 25 mg IV Q6 PRN PRN Reason: Itching Stop: 10/22/18 21:08 Last Admin: 09/23/18 08:32 Dose: 25 mg Enoxaparin Sodium (Lovenox) 40 mg SQ PM JERSON Stop: 10/10/18 20:59 Last Admin: 09/22/18 21:24 Dose: 40 mg Glucagon (Glucagen) 1 mg IM UD PRN; Protocol PRN Reason: Hypoglycemia Protocol Stop: 10/15/18 11:08 Glucose (Glucose 40%) 15 - 30 gm PO UD PRN; Protocol PRN Reason: Hypoglycemia Protocol Stop: 10/15/18 11:08 Glucose (Dex4 Glucose) 4 - 8 tabs PO UD PRN; Protocol PRN Reason: Hypoglycemia Protocol Stop: 10/15/18 11:08 Hydromorphone HCl (Dilaudid) 1 mg IV Q4H PRN PRN Reason: Severe Pain Stop: 10/05/18 10:59 Last Admin: 09/23/18 14:26 Dose: 1 mg Piperacillin Sod/Tazobactam (Sod 3.375 gm/ Dextrose) 115 mls @ 28.75 mls/hr IV Q8H JERSON; Protocol Stop: 10/22/18 19:59 Last Infusion: 09/23/18 15:56 Dose: Infused Vancomycin HCl 1,000 mg/ (Sodium Chloride) 270 mls @ 125 mls/hr IV DAILY@1400 [facility] Stop: 10/29/18 13:59 Last Admin: 09/23/18 14:26 Dose: 125 mls/hr Sodium Chloride (Nss 1000ml) 1,000 mls @ 15 mls/hr IV .Q24H [facility] Stop: 10/23/18 11:44 Last Admin: 09/23/18 14:26 Dose: 15 mls/hr Insulin Aspart (Novolog Flexpen) 0 units SC ACHS [facility] Stop: 10/15/18 11:29 Last Admin: 09/23/18 10:34 Dose: Not Given Lactic Acid (Amlactin) 1 gm EXT BID [facility] Stop: 10/16/18 20:59 Last Admin: 09/23/18 08:13 Dose: 1 gm Lactobacillus Acidophilus (Floranex) 4 tab PO QIDM [facility] Stop: 10/12/18 16:59 Last Admin: 09/23/18 10:29 Dose: Not Given Lidocaine (Lidoderm 5%) 2 patch TD HS [facility] Stop: 10/11/18 21:59 Last Admin: 09/22/18 21:23 Dose: Not Given Lorazepam (Ativan) 1 mg PO HS PRN PRN Reason: Insomnia Stop: 10/13/18 19:00 Last Admin: 09/22/18 23:12 Dose: 1 mg Miscellaneous (Remove Lidoderm Patch) 2 ea N/A QAM [facility] Stop: 10/12/18 08:59 Last Admin: 09/23/18 08:13 Dose: Not Given Miscellaneous (Carbohydrates For Hypoglycemia) 15 - 30 gm PO UD PRN PRN Reason: Hypoglycemia Treatment Stop: 10/15/18 11:08 Last Admin: 09/15/18 16:24 Dose: 15 gm Miscellaneous Information (Consult) 1 ea N/A UD PRN PRN Reason: Consult Stop: 10/10/18 18:42 Miscellaneous Information (Consult) 1 ea N/A UD PRN PRN Reason: Consult Stop: 10/10/18 18:42 Ondansetron HCl (Zofran) 4 mg IV Q6H PRN PRN Reason: Nausea Stop: 10/10/18 18:42 Last Admin: 09/13/18 08:37 Dose: 4 mg Oxycodone HCl (Roxicodone Immediate Rel) 10 mg PO Q4 PRN PRN Reason: Pain Stop: 10/01/18 12:53 Last Admin: 09/23/18 08:13 Dose: 10 mg Oxycodone HCl (Oxycontin) 15 mg PO Q12H [facility] Stop: 10/05/18 10:59 Last Admin: 09/23/18 11:52 Dose: 15 mg _ (1) Anemia Anemia type: unspecified type Bone marrow failure anemia type: Chronic kidney disease stage: Folate deficiency anemia type: Hemolytic anemia type: Iron deficiency anemia type: Other causes of anemia: Vitamin B12 deficiency anemia type: Qualified Code(s): D64.9 - Anemia, unspecified (2) Septic arthritis Laterality: left Septic arthritis location: knee Septic arthritis organism: due to unspecified organism Qualified Code(s): M00.9 - Pyogenic arthritis, unspecified (3) Gastric ulcer Gastric ulcer chronicity: unspecified ulcer chronicity Gastric ulcer complication status: unspecified whether hemorrhage or perforation present Qualified Code(s): K25.9 - Gastric ulcer, unspecified as acute or chronic, without hemorrhage or perforation (4) Hypertension Hypertension type: essential hypertension Qualified Code(s): I10 - Essential (primary) hypertension (5) Pneumonia Aspiration pneumonia type: Laterality: right Lung location: unspecified part of lung Pneumonia type: due to unspecified organism Qualified Code(s): J18.9 - Pneumonia, unspecified organism
[2018-09-23] MEDS: LIDOCAINE 5% 1 PATCH TD SCH (19:00)
[2018-09-23] MEDS: ENOXAPARIN INJ 40 MG/0.4 ML SYR SQ SCH (20:44)
[2018-09-23] MEDS: LORazepam 1 MG TAB PO PRN (23:55)
[2018-09-24] MEDS: PIPERACILLIN/TAZOBACTAM 3.375 GM in DEXTROSE 5% 100 ML IV SCH ×3 (04:25→19:31)
[2018-09-24] MEDS: HYDROmorphone INJ 1 MG/ML SYRINGE IV PRN ×5 (04:31→20:58)
[2018-09-24 05:47] LABS: Hematocrit (blood only) 23.9 % (42-52); Hemoglobin 7.6 g/dL (14.0-18.0); Mean Corpuscular Hgb Conc 31.8 g/dL (32-36); Mean Corpuscular Volume 91.9 fL (80-100); Mean Platelet Volume 7.7 fL (7.4-10.4); Platelet Count 310 K/uL (130-400); RDW Coefficient of Variation 14.8 % (11.5-14.5); RDW Standard Deviation 49.4 fL (36.4-46.3); White Blood Count 9.13 K/uL (4.8-10.8)
[2018-09-24 06:17] LABS: BUN Creatinine Ratio 10.2 (10-20); Calcium 7.9 mg/dl (8.5-10.1); Creatinine Clr Calc Pharmacy 53.4 ml/min; Est GFR (African American) 43.8; Est GFR (Non-African American) 37.8; Potassium 4.1 mmol/L (3.5-5.1)
[2018-09-24] MEDS: LACTOBACILLUS ACIDOPHILUS (FLORANEX) TAB PO SCH ×4 (07:41→21:07)
[2018-09-24] MEDS: AMMONIUM LACTATE 12% LOTION 225 GM BTL EXT SCH ×2 (07:41→21:07)
[2018-09-24] MEDS: INSULIN ASPART 100 UNITS/ML 3 ML PEN SC SCH ×4 (08:25→21:09)
--- NOTE | 2018-09-24 09:04 | Cardiology Consultation ---
Date of Consultation September 24, 2018 Assessment & Plan (1) Pneumonia: Discussed with Dr. Faye. Patient was admitted with septic arthritis of his left knee status post removal of his hardware and placement of an antibiotic spacer at [facility] where he signed out AMA. He also has evidence of cavitations on chest CT consistent with necrotizing pneumonia. He will be undergoing bronchoscopy today. There is question of possible septic emboli and we were consulted for possible KIARA. He does not have any signs of endocarditis on exam. Given his pulmonary involvement if he did have endocarditis it would involve the right side of his heart, most likely his tricuspid valve. We recommend obtaining a transthoracic echo first as this will hopefully be sufficient for evaluating for any vegetations/valvular disease. If there is evidence of vegetations he is already being treated appropriately with IV antibiotics. (2) Septic arthritis: Supervising Physician Co-Signing Physician Notes Patient was seen and examined and discussed with Karina. Agree with above. History of Present Illness Attending Physician: Larry Bashir DO History of Present Illness Mr. Ramon is a 58 year old male with a medical history significant for hypertension, former IV heroin use, alcohol abuse, diabetes, septic arthritis of his left knee and pneumonia. He is being seen in consult for possible KIARA. He was recently admitted to [facility] with an infection of his left TKA. At the end of August he underwent removal of his prosthesis and had an antibiotic spacer placed. He then left [facility] AMA reporting that he "did not trust them." He has also been noted to have a necrotizing pneumonia. His CT scan shows evidence of cavitary lesions in the right lower lobe and there is concern of possible septic emboli. Dr. Sanches plans to perform a bronchoscopy today and has requested a possible KIARA to evaluate for endocarditis as a source of emboli. The patient has been on IV antibiotics and blood cultures during his admission have been negative. He did have a reported positive blood culture with Strep pneumoniae at [place]. He has had intermittent right sided chest discomfort which he states has been ongoing for several weeks. It is not related to exertion and occurs at random. He continues to have a productive cough. He denies shortness of breath, orthopnea or PND. He denies palpitations, lightheadedness, near syncope or syncope. He denies fever, chills or sweats. He complains of left knee pain but no other arthralgias. No rash. No abnormal bleeding. A 10 point review of systems is otherwise negative unless stated in HPI. Family history: Mother of heart disease in her 50's. He does not know any information about his father's medical history. Social history: with 10 children and multiple grandchildren. Smoked 50 pack years. History of IV drug use, most recently several months ago. History of alcohol abuse. Allergies Allergy/AdvReac Type Severity Reaction Status Date / Time No Known Allergies Allergy Verified 09/10/18 06:28 Home Medications Home Medications Medication Instructions Recorded Confirmed Type Unobtainable 09/10/18 09/10/18 History Patient History Medical History PTSD (post-traumatic stress disorder) (Chronic) Heroin overdose (Chronic) Borderline diabetes High blood pressure Surgical History History of gastric bypass History of hernia repair Hx of foot surgery Status post left knee replacement With multiple revisions. Presently with antibiotic spacer in place Family History Other Diabetes Heart disease Social History Current Living Situation: Spouse Other Information That Helps Us Care for You: No Feels Safe at Home: Yes Safety Concerns: Feels Safe At This Time Smoking Status: Former smoker Tobacco Type: cigarettes Hx Alcohol Use: Yes Alcohol Intake Frequency: 3 or more drinks per day Hx Substance Use: Yes substance use type: crack/cocaine and heroin Beliefs That Will Affect Care: None Communication Ability: Impaired Physical Exam 2 Vital Signs (Past 24 Hours): Last Vital Signs Temp 37.0 C 09/24/18 06:56 Pulse 72 09/24/18 06:56 Resp 18 09/24/18 06:56 BP 168/87 H 09/24/18 06:56 Pulse Ox 98 09/24/18 06:56 Physical Exam: General: No acute distress. Alert and oriented. HEENT: Head is normal. Anicteric sclerae. Neck: No appreciable JVD. No carotid bruit. Normal carotid upstrokes. Cardiac: Regular rate and rhythm. S1 and S2 normal. No appreciable murmur, gallop or rub. Right sided chest wall tenderness to palpation Lungs: Decreased breath sounds. Abdomen: Soft and nontender. Bowel sounds present. No abdominal bruit. Extremities: 1+ pretibial edema bilaterally. Peripheral pulses intact. No Osler nodes or [place]ay lesions Neuro: No focal deficits. Results & Data Laboratory Results Laboratory Results - last 24 hr 09/24/18 09/24/18 05:36 05:36 WBC 9.13 RBC 2.60 L Hgb 7.6 L Hct 23.9 L MCV 91.9 MCH 29.2 MCHC 31.8 L RDW Std Deviation 49.4 H RDW Coeff of Leatha 14.8 H Plt Count 310 MPV 7.7 Sodium 142 Potassium 4.1 Chloride 109 H Carbon Dioxide 29 Anion Gap 4.0 BUN 20 H Creatinine 1.93 H Est Cr Clr Drug Dosing 53.4 Est GFR ( Amer) 43.8 Est GFR (Non-Af Amer) 37.8 BUN/Creatinine Ratio 10.2 Glucose 72 Calcium 7.9 L ECG Additional Comments: EKG: Sinus rhythm _ (1) Septic arthritis Laterality: left Septic arthritis location: knee Septic arthritis organism: due to unspecified organism Qualified Code(s): M00.9 - Pyogenic arthritis, unspecified (2) Pneumonia Aspiration pneumonia type: Laterality: right Lung location: unspecified part of lung Pneumonia type: due to unspecified organism Qualified Code(s): J18.9 - Pneumonia, unspecified organism
--- NOTE | 2018-09-24 09:35 | Nephrology Progress Note ---
Date of Service September 24, 2018 Assessment & Plan (1) BISHOP (acute kidney injury): -- BISHOP likely related to acute inflammation / underlying infection. Possible infection related GN. Creatinine has been relatively stable since admission (peak Cr 1.9, baseline Cr ~ 0.9). Electrolyte balance is acceptable. Patient remains nonoliguric -- 09/[address] reviewed: No obstruction -- Urinalysis 09/10: Negative for protein, blood related to Diop catheter -- 24 hour urine studies and UIEP are pending -- SIEP c/w chronic inflammatory pattern -- Monitor serial PRP (2) Polyuria: -- Patient has had new onset polyuria over the last 48 hours -- He remains hemodynamically stable and clinically euvolemic -- Serum sodium is not elevated and patient does not have significant azotemia -- Will check serum and urine osmolality -- Will monitor UO and volume status (3) Septic arthritis: -- Recommend narrowing antibiotic spectrum. Consider stopping Vancomycin if possible -- Await culture results from [facility] -- Await further input from ID (4) Pneumonia: -- Pulmonology recommendations reviewed. Await bronchoscopy and KIARA results (5) Cirrhosis, alcoholic: (6) History of intravenous drug abuse: (7) PTSD (post-traumatic stress disorder): Subjective Mr. Ramon was seen & examined in his hospital room this morning. He has collected a small sample of back colored sputum. He denies fever, dyspnea or LAMAS. He is awaiting bronchoscopy and KIARA this morning. His primary complaint is hunger. He would like to resume his diet. Constitutional: + weakness; no fever Respiratory: + cough and + change in sputum Physical Exam 2 Vital Signs (Past 24 Hours): Last Vital Signs Temp 37.0 C 09/24/18 06:56 Pulse 72 09/24/18 06:56 Resp 18 09/24/18 06:56 BP 168/87 H 09/24/18 06:56 Pulse Ox 98 09/24/18 06:56 Eyes: + anicteric sclerae and PERRL ENMT: external ear and nose normal, oropharynx normal Neck: trachea midline, no thyromegaly Respiratory: normal respiratory effort, lungs clear to auscultation Cardiovascular: Rate/Rhythm: regular rate and regular rhythm Extremities: + edema (trace pretibial pitting edema) Psychiatric: Orientation: + guarded Apperance: + disheveled Affect: + labile affect Mood: + depressed mood and + anxious mood Results & Data Laboratory Results Laboratory Tests 09/24/18 09/24/18 05:36 05:36 WBC 9.13 Hgb 7.6 L Hct 23.9 L Plt Count 310 Sodium 142 Potassium 4.1 Chloride 109 H Carbon Dioxide 29 BUN 20 H Creatinine 1.93 H Calcium 7.9 L _ (1) Septic arthritis Laterality: left Septic arthritis location: knee Septic arthritis organism: due to unspecified organism Qualified Code(s): M00.9 - Pyogenic arthritis, unspecified (2) Pneumonia Aspiration pneumonia type: Laterality: right Lung location: unspecified part of lung Pneumonia type: due to unspecified organism Qualified Code(s): J18.9 - Pneumonia, unspecified organism
[2018-09-24] MEDS ORDERED: fentaNYL citrate 100 MCG/2 ML VIAL IV ONE (10:13)
[2018-09-24] MEDS ORDERED: MIDAZOLAM HCL 1 MG/ML 2ML VIAL IV STA (10:13)
[2018-09-24] MEDS ORDERED: LIDOCAINE 4% INH SOLN 4 ML BTL INH STA (10:13)
[2018-09-24] MEDS ORDERED: LIDOCAINE HCL VISCOUS SOLN 2% 15 ML UDC MT ONE (10:13)
[2018-09-24] MEDS ORDERED: LIDOCAINE HCL 2% (LOCAL) INJ 50 ML VIAL INFIL STA (10:13)
[2018-09-24] MEDS ORDERED: LEVALBUTEROL HCL 1.25 MG/3 ML NEB NEB STA (10:13)
[2018-09-24] MEDS ORDERED: OXYMETAZOLINE 0.05% 30 ML BTL ONE (10:13)
--- NOTE | 2018-09-24 10:23 | Post Anesthesia Assessment ---
Date of Service September 24, 2018 Post Sedation Assessment Vital Signs Temp Pulse Pulse Resp BP BP Pulse Ox 09/24/18 10:05 80 22 148/97 H 100 09/24/18 10:00 73 20 150/90 H 100 09/24/18 09:55 71 20 158/93 H 100 09/24/18 09:50 76 18 164/92 H 96 09/24/18 06:56 37.0 C 72 18 168/87 H 98 09/23/18 23:54 161/87 H 09/23/18 23:23 36.9 C 72 20 183/93 H 97 09/23/18 15:01 36.5 C 73 20 154/82 H 96 Recovery Score Activity: Moves 4 extremities Respiration: Deep Breath/Cough Circulation: +/-20% PreAnes Value Consciousness: Arouseable (by name) Oxygen Saturation: O2 needed for >90% Discharge Sedation Level of Care: Fast Track Phase II Post Sedation Plan On clinical assessment, the patient appears to have tolerated the sedation without complications. Patient is recovering as anticipated. Patient will continue to be monitored by nursing and may be discharged when sedation discharge criteria are met per below protocol. Upon Completions of procedure and additional 15 minutes continue every 5 minute vital signs and the P.A.R. score; then discharge to a Phase I or Fast Track to Phase II per the following guidelines: * Discharge Patient to appropriate Phase II area if PAR is 8 or greater or return to pre- procedure baseline. The post - procedure orders will be as directed. * If PAR score is less than 8 or not return to pre-procedure baseline then patient will follow Phase I monitoring till PAR is reached for Phase II. The Phase I may be done in procedure room or may call to secure a Phase I area. * If naloxone or flumazenil are used for reversal, hold in Phase I for continued monitoring from when last reversal dose was given for a minimum of 60 minutes or longer pending the nurse and/or physician discretion of patient condition before discharge to Phase II. Please call the Sedation Physician to re-evaluate and complete post-note for discharge to Phase II area. Do NOT discharge from procedure sedation or Phase 1 until post- sedation evaluation note is complete by procedure /sedation MD Sedation Discharge Instructions to be given to the patient at discharge to home.
--- NOTE | 2018-09-24 10:24 | Post Operative Brief Note ---
Immediate Post Op Note v1 Date of Surgery September 24, 2018 Pre & Post Diagnosis Operation Date: 09/24/18 10:00 Pre-Op Diagnosis: Necrotizing pneumonia Post-Op Diagnosis: Necrotizing pneumonia Procedure Operation Date: 09/24/18 10:00 Actual Procedures p Bronchoscopy(Bilateral) - Francois Sanches MD Surgeon Francois Sanches MD [employer] none Estimated Blood Loss 0 Findings Consistent with Post-Op Diagnosis Necrotizing pneumonia/strep bacteremia/septic a\joint Complications none Disposition Accompanied Patient To Recovery: No Overlapping Procedure I was present for: the critical portions of procedure. I was immediately available: during the entire case. Back up surgeon: was not required during procedure.
[2018-09-24] MEDS: OXYCODONE HCL 15 MG TABCR (OXYCONTIN) PO SCH ×2 (11:00→23:56)
[2018-09-24] MEDS: VANCOMYCIN HCL 1,000 MG in SODIUM CHLORIDE 0.9% 250 ML IV SCH (14:20)
[2018-09-24] MEDS: OXYCODONE HCL IR 5 MG TAB (IMMEDIATE RELEASE) PO PRN ×2 (14:24→19:12)
--- NOTE | 2018-09-24 14:55 | Operative Report ---
DATE OF OPERATION: 09/24/2018 PROCEDURE: Fiberoptic bronchoscopy with bronchoalveolar lavage with or without biopsy. ANESTHESIA PREOPERATIVELY: None. ANESTHESIA DURING PROCEDURE: IV fentanyl 100 mcg, IV Versed 7 mg, 20 mL 2% Xylocaine spray above and below the cords, 4% viscous Xylocaine intranasally. DESCRIPTION OF PROCEDURE: Moderate conscious sedation was administered at 0955 and completed at 1010. Fiberoptic bronchoscope was inserted into the left naris with minimal difficulty and passed to the level of the true vocal cords. The cords appear to approximate normally with phonation without evidence for lesions or paralysis. A large amount of mucoviscous and mucopurulent secretion was seen pooling in the supraglottic region and was lavaged until clear. The cords were anesthetized. The scope was passed through the cords into the trachea and right and left tracheobronchial tree. The eric was sharp. Left main stem bronchus was explored initially and no endobronchial lesion was seen. Left upper lobe, the apical-posterior and anterior segments, lingual subdivision and left lower lobe were free of endobronchial lesions down to subsegmental bronchi. Bronchial crypts and clefts were visible throughout the left tracheobronchial tree. The scope was withdrawn to the eric and entered into the right mainstem bronchus. A moderate degree of global inflammatory mucosal change was seen most notable at the takeoff of the right lower lobe and right middle lobe bronchi. The right upper lobe, the apical posterior, anterior segments, bronchus intermedius were free of endobronchial lesions. Bronchial crypts and clefts with mucous pitting was seen throughout the right tracheobronchial tree. The bronchus intermedius and the right middle lobe was explored and the middle lobe with the medial lateral segments and their subsegmental bronchi showed a moderate amount of mucoviscous secretion that was lavaged until clear. The secretions were cloudy. This middle lobe was lavaged copiously until the patient became somewhat hypoxic. The scope was then introduced in the right lower lobe and all basilar segments were lavaged and the aspirate sent for appropriate studies. No biopsies were attempted. No endobronchial lesions were visible. Transbronchial biopsies were not attempted. The procedure was terminated. The patient was given a nebulizer treatment with Xopenex and then transferred back to the medical floor, hemodynamically stable with no signs of respiratory compromise. OVERALL ASSESSMENT: Necrotizing pneumonia, multilobar but predominantly involving the right middle lobe. Will await microbiological and cytologic examination of the bronchial washings. I attest to the content of the Intraoperative Record and any orders documented therein. Any exception s are noted below.
[2018-09-24] MEDS: SODIUM CHLORIDE 0.9% 1000ML 1,000 ML IV SCH (15:04)
--- NOTE | 2018-09-24 15:56 | Hospitalist Progress Note ---
Date of Service September 24, 2018 Assessment & Plan (1) Pneumonia: CT chest 09/18 shows cavitations in right lower lobe, consistent with necrotizing pneumonia clinically, the patient has no right sided chest pain coughing, intermittently productive he is afebrile, WBC normal most of the admission continue on Vancomycin and Zosyn for now Bronchoscopy done, cultures are pending. Pulmonary notes that they discussed with ID, and because the patient does not have any overt valvulopathy, and will likely need a longer duration of antibiotics anyway, they are not sure that a KIARA would change treatment. could consider septic emboli given his septic joint and bacteremia at [facility] blood cultures here are negative there was a report of him having a Strep pneumoniae positive blood culture at [facility] Ongoing antibiotics per ID recommendations. (2) Septic arthritis: Consulted orthopedic surgery-greatly appreciate assistance Empiric antibiotic coverage with vancomycin and Zosyn Consulted Infectious disease sent records request to [facility] again on 09/17 specifically asking for all microbiology results blood cultures, synovial cultures, operative cultures will help narrow down IV antibiotics nothing sent yet Hopefully cultures from the bronchoscopy may have some yield. pain control: better on Oxycontin 15mg BID, Oxycodone 10mg q4 PRN, Dilaudid strictly for breakthrough He seems to be doing well overall clinically. ultimately patient will need to follow up at [facility] for repeat TKA once spacer in place for 6 weeks and completed 6 weeks of IV antibiotics for the time being his TKA would be put on hold until necrotizing pneumonia adequately treated and patient is stronger (3) Cirrhosis, alcoholic: new diagnosis, patient with cirrhotic morphology of liver on CT scan has ascites on exam, peripheral edema, albumin is very low at 1.0 heavy drinking, has not had alcohol in 7-8 weeks since he has been in hospital hepatitis C preliminary positive, follow up on RNA pending HIV pending hepatitis B negative, has surface Ab hold on inpatient GI consult since he is compensated, should be referred to GI on discharge No current problems in this regard. (4) BISHOP (acute kidney injury): Cr persistently high at 1.7-1.8, continue to follow continue choi, for now, he would very much like this removed, but certainly we would like to see enough mobility to give a voiding trial, and then given that he had the Choi in for almost 2 months, certainly close follow-up after discontinuation will be needed maintaining his own hydration, no need for IV fluids, Cr did not improve with them likely multifactorial with inflammatory state, abscesses no proteinuria on three separate UA, doubt glomerulonephritis, no hematuria either, no casts could be due to cirrhosis as well sent UPEP and SPEP, awaiting results appreciate consult from Dr. Pozo, he will continue to follow (5) Anemia: Hb stable no signs of active bleeding he has a recent history of ERCP in May considered multiple myeloma as possibility, CT 09/18 did not show any lytic lesions likely from malnutrition, cirrhosis, alcohol abuse Continue to follow * (6) Hypertension: BP stable not going to add anything at this time Continue to follow (7) Borderline diabetes: Overall appears to be under reasonable control right now, his A1C is 5.6 * (8) Gastric ulcer: h/o gastric ulcer Protonix 40 mg p.o. daily No symptoms in this regard. (9) Edema, peripheral: Patient with peripheral edema. Serum albumin of 1.0 Per report he is status post gastric bypass. Question malnutrition as well as deconditioning after prolonged hospital stay and chronic illness. UA negative for protein. also, likely some edema due to cirrhosis heavy alcohol abuse Nutritional support PT/OT eval and treat. (10) Alcohol abuse: patient was drinking a fifth a day as well as beer up until 6-7 weeks ago caused him to move out of his home here in [place] and back to [place] no signs of withdrawal as he would have gone through that at [place] [facility] discussed cirrhosis diagnosis with he and his he says he is never going to touch alcohol again Doing well overall. (11) DVT prophylaxis: Lovenox Subjective He is overall feeling better. He does have bit of leg pain, which seems to be from stiffness. He would like his Choi removed, but notes that he is not really able to weight-bear on the right and cannot weight-bear on the left. He notes his Choi has been in for about 7 weeks. His breathing feels better, he did bring up some sputum. Case was discussed with pulmonary post [facility], input greatly appreciated. Review of Systems All systems reviewed & are unremarkable except as noted in HPI & below Physical Exam 2 Vital Signs (Past 24 Hours): Last Vital Signs Temp 37 C 09/24/18 15:32 Pulse 82 09/24/18 15:32 Resp 18 09/24/18 15:32 BP 155/80 H 09/24/18 15:32 Pulse Ox 98 09/24/18 15:32 Physical Exam: General he is awake alert oriented x3, pleasant no acute distress. HEENT normocephalic atraumatic mucous membranes may be slightly dry. Cardio is regular without rubs murmurs or gallops, lungs show coarse rhonchi on the right but overall fairly clear. Abdomen is soft nondistended nontender no masses or organomegaly. Extremities show no cyanosis or clubbing he has right greater than left trace to maybe 1+ edema with a degree of nonspecific calf tenderness on the right. Skin shows no rashes, no pallor or icterus. No focal neuro deficits. _ (1) Pneumonia Aspiration pneumonia type: Laterality: right Lung location: unspecified part of lung Pneumonia type: due to unspecified organism Qualified Code(s): J18.9 - Pneumonia, unspecified organism (2) Septic arthritis Laterality: left Septic arthritis location: knee Septic arthritis organism: due to unspecified organism Qualified Code(s): M00.9 - Pyogenic arthritis, unspecified (3) Anemia Anemia type: unspecified type Iron deficiency anemia type: Vitamin B12 deficiency anemia type: Folate deficiency anemia type: Bone marrow failure anemia type: Hemolytic anemia type: Other causes of anemia: Chronic kidney disease stage: Qualified Code(s): D64.9 - Anemia, unspecified (4) Hypertension Hypertension type: essential hypertension Qualified Code(s): I10 - Essential (primary) hypertension (5) Gastric ulcer Gastric ulcer chronicity: unspecified ulcer chronicity Gastric ulcer complication status: unspecified whether hemorrhage or perforation present Qualified Code(s): K25.9 - Gastric ulcer, unspecified as acute or chronic, without hemorrhage or perforation
--- NOTE | 2018-09-24 17:12 | Ultrasound Report ---
ULTRASOUND RIGHT LOWER EXTREMITY VENOUS CLINICAL HISTORY: Right calf pain. COMPARISON STUDY: Bilateral lower extremity venous ultrasound dated 06/13/2018. TECHNIQUE: Real-time, grayscale, and color Doppler sonography of the deep veins of the right lower ex tremity was performed from the inguinal crease to the calf. Compression and augmentation were utilize d. The left leg was not able to be scanned. FINDINGS: There is no sonographic evidence of deep venous thrombosis identified in the right lower ex tremity. The common femoral, superficial femoral, and popliteal veins are patent and normally corinne sible. The greater saphenous vein and the profunda femoris vein at the junction with the common femor al vein are clear. The visualized calf veins are patent. Soft tissue edema is noted in the right lowe r extremity. A small complex popliteal cyst measures 2.2 x 0.6 x 0.9 cm. IMPRESSION: 1. There is no sonographic evidence of deep venous thrombosis identified in the right lower extremity . 2. Small complex popliteal cyst. 3. The left leg could not be evaluated. Electronically signed by: Juan Panda M.D. 09/24/2018 5:11 PM
[2018-09-24] MEDS: DiphenhydrAMINE HCL 50 MG/ML VIAL IV PRN (20:59)
[2018-09-24] MEDS: ENOXAPARIN INJ 40 MG/0.4 ML SYR SQ SCH (21:06)
[2018-09-24] MEDS: LIDOCAINE 5% 1 PATCH TD SCH (21:07)
[2018-09-24] MEDS: LORazepam 1 MG TAB PO PRN (23:57)
[2018-09-25] MEDS: HYDROmorphone INJ 1 MG/ML SYRINGE IV PRN ×7 (00:58→23:59)
[2018-09-25] MEDS: OXYCODONE HCL IR 5 MG TAB (IMMEDIATE RELEASE) PO PRN ×4 (02:01→22:11)
[2018-09-25] MEDS: PIPERACILLIN/TAZOBACTAM 3.375 GM in DEXTROSE 5% 100 ML IV SCH ×3 (04:13→20:22)
[2018-09-25] MEDS: DiphenhydrAMINE HCL 50 MG/ML VIAL IV PRN ×3 (05:01→20:15)
[2018-09-25 05:23] LABS: Creatinine Ur 19 MG/DL (20-320); Protein, Urine 24 Hour 1176 MG/24HRS. (0-149); Total Protein, Urine 24 MG/DL; Urine Protein/Creatinine Ratio 1263 (<OR=115)
[2018-09-25 06:36] LABS: Hematocrit (blood only) 23.1 % (42-52); Hemoglobin 7.4 g/dL (14.0-18.0); Mean Corpuscular Volume 91.3 fL (80-100); Platelet Count 302 K/uL (130-400); RDW Coefficient of Variation 14.8 % (11.5-14.5); RDW Standard Deviation 48.7 fL (36.4-46.3); Red Blood Count 2.53 M/uL (4.7-6.1); White Blood Count 9.02 K/uL (4.8-10.8)
[2018-09-25 07:12] LABS: Albumin Level 1.3 gm/dl (3.4-5.0); BUN Creatinine Ratio 9.5 (10-20); Calcium 7.6 mg/dl (8.5-10.1); Est GFR (African American) 41.5; Est GFR (Non-African American) 35.8; Potassium 3.5 mmol/L (3.5-5.1)
[2018-09-25 07:15] LABS: Albumin Globulin Ratio 0.2 (0.9-2); Bilirubin,Total 0.3 mg/dl (0.1-1); Globulin 5.3 gm/dl (2.5-4.0); Total Protein 6.6 gm/dl (6.4-8.2)
[2018-09-25] MEDS: INSULIN ASPART 100 UNITS/ML 3 ML PEN SC SCH ×4 (08:48→20:24)
[2018-09-25] MEDS: AMMONIUM LACTATE 12% LOTION 225 GM BTL EXT SCH ×2 (08:57→20:26)
[2018-09-25] MEDS: LACTOBACILLUS ACIDOPHILUS (FLORANEX) TAB PO SCH ×4 (08:58→20:26)
--- NOTE | 2018-09-25 09:57 | Cardiology Progress Note ---
Date of Service September 25, 2018 Assessment & Plan (1) Septic arthritis: Although we cannot definitively exclude endocarditis with a transthoracic echocardiogram, there are no obvious mass lesions and no valvular abnormalities to suggest significant endocarditis. The treatment if we did identify them on KIARA would be 6 weeks of antibiotics, which he is going to receive in any case. For that reason (since it will not alter our therapy) I would not perform a KIARA at this time. In the future once the antibiotics are discontinued if he has further evidence of septic embolization we will have to do a KIARA. I will sign off now, please contact us if we can be of further assistance Subjective He is feeling well today, he is laying in bed. He has no cardiovascular complaints. Physical Exam 2 Vital Signs (Past 24 Hours): Last Vital Signs Temp 37.0 C 09/25/18 00:32 Pulse 80 09/25/18 00:32 Resp 20 09/25/18 00:32 BP 156/79 H 09/25/18 00:32 Pulse Ox 97 09/25/18 00:32 Physical Exam: Constitutional: Alert, cooperative and in no distress. Pulmonary: Clear to auscultation bilaterally. Cardiac: Regular rhythm with no murmur, gallop or rub. Abdomen: Soft, nontender with normal bowel sounds. Extremities: No edema. Skin: No rash, ecchymoses or petechiae. Results & Data Diagnostic Findings On transthoracic echocardiography there are no significant abnormalities to suggest endocarditis (no vegetation seen, no significant valve lesions) _ (1) Septic arthritis Laterality: left Septic arthritis location: knee Septic arthritis organism: due to unspecified organism Qualified Code(s): M00.9 - Pyogenic arthritis, unspecified
--- NOTE | 2018-09-25 09:59 | Nephrology Progress Note ---
Date of Service September 25, 2018 Assessment & Plan (1) BISHOP (acute kidney injury): -- BISHOP likely related to acute inflammation / underlying infection. Possible infection related GN. Creatinine has been relatively stable since admission (peak Cr 1.9, baseline Cr ~ 0.9). Electrolyte balance is acceptable. Patient remains nonoliguric -- 09/[address] reviewed: No obstruction -- Urinalysis 09/10: Negative for protein, blood related to Diop catheter -- 24 hour urine studies and UIEP are pending -- SIEP c/w chronic inflammatory pattern -- UIEP c/w glomerular and tubular proteinuria -- Monitor serial PRP (2) Polyuria: -- Urine output is decreasing. Will monitor -- He remains hemodynamically stable and clinically euvolemic -- Serum sodium is not elevated and patient does not have significant azotemia -- Will monitor UO and volume status (3) Pneumonia: -- Await bronchoscopy culture results (4) Septic arthritis: -- Recommend narrowing antibiotic spectrum. Consider stopping Vancomycin if possible -- Await culture results from [facility] -- Await further input from ID (5) Cirrhosis, alcoholic: (6) History of intravenous drug abuse: (7) PTSD (post-traumatic stress disorder): Subjective Mr. Ramon was seen & examined in his hospital room this morning. He underwent bronchoscopy and echocardiogram yesterday. He currently denies dyspnea but still has cough productive of yellow / back sputum Constitutional: + weakness; no fever Respiratory: + cough and + change in sputum Physical Exam 2 Vital Signs (Past 24 Hours): Last Vital Signs Temp 37.0 C 09/25/18 00:32 Pulse 80 09/25/18 00:32 Resp 20 09/25/18 00:32 BP 156/79 H 09/25/18 00:32 Pulse Ox 97 09/25/18 00:32 Eyes: + anicteric sclerae and PERRL ENMT: external ear and nose normal, oropharynx normal Neck: trachea midline, no thyromegaly Respiratory: normal respiratory effort, lungs clear to auscultation Cardiovascular: Rate/Rhythm: regular rate and regular rhythm Extremities: + edema (trace pretibial pitting edema) Psychiatric: Orientation: + guarded Apperance: + disheveled Affect: + labile affect Mood: + depressed mood and + anxious mood Results & Data Laboratory Results Laboratory Tests 09/25/18 06:19 Sodium 140 Potassium 3.5 Chloride 107 Carbon Dioxide 27 BUN 19 H Creatinine 2.02 H Glucose 85 Calcium 7.6 L Albumin 1.3 L Diagnostic Findings 09/24/18 Echo: LVEF 55 - 60%, PASP 40 - 50 mmHG _ (1) Septic arthritis Laterality: left Septic arthritis location: knee Septic arthritis organism: due to unspecified organism Qualified Code(s): M00.9 - Pyogenic arthritis, unspecified (2) Pneumonia Aspiration pneumonia type: Laterality: right Lung location: unspecified part of lung Pneumonia type: due to unspecified organism Qualified Code(s): J18.9 - Pneumonia, unspecified organism
[2018-09-25] MEDS: OXYCODONE HCL 15 MG TABCR (OXYCONTIN) PO SCH ×2 (11:19→23:23)
--- NOTE | 2018-09-25 14:29 | Progress Note ---
DATE: 09/25/2018 PULMONARY MEDICINE PROGRESS NOTE Chart reviewed, patient examined. SUBJECTIVE: The patient states he thinks his breathing better since the bronchoscopy with lavage yesterday. I refer you to that report, but no endobronchial lesions were seen. The right middle lobe which shows severe consolidative changes almost bordering on a necrotizing pneumonia was copiously lavaged with saline and the aspirate sent for appropriate studies. The patient is also followed by Dr. Pozo for acute kidney injury, felt to be secondary to acute inflammation and underlying infection, possibly giving patient a glomerulonephritis. The patient has no sign of obstruction. He is also receiving current treatment and past treatment for infected left knee prosthesis. He does have a history of alcoholic cirrhosis and intravenous drug use. The bronchial washings are still pending. Cryptococcal antigen negative. PLAN: Continue current treatment. The patient may benefit from steroid therapy as I believe this probable organized pneumonia is part of his radiographic picture.
[2018-09-25] MEDS: VANCOMYCIN HCL 1,000 MG in SODIUM CHLORIDE 0.9% 250 ML IV SCH (14:43)
--- NOTE | 2018-09-25 15:45 | Hospitalist Progress Note ---
Date of Service September 25, 2018 Assessment & Plan (1) Pneumonia: (2) Septic arthritis: (3) Cirrhosis, alcoholic: (4) BISHOP (acute kidney injury): (5) Anemia: (6) Hypertension: (7) Borderline diabetes: (8) Gastric ulcer: (9) Edema, peripheral: (10) Alcohol abuse: (11) DVT prophylaxis: 58-year-old -[place] male with history of hypertension, former IV heroin and alcohol abuse and borderline diabetes presenting with knee pain was admitted on Sep 10 2018 Patient presented complaining of worsening left knee pain, was hospitalized at [facility] for over a month secondary to an infection of his left knee prosthesis (initially placed in 2007), hx of multiple revisions to his left knee. 4 days prior to this admission, the prosthesis was removed and replaced with an antibiotic spacer, left [facility] AMA due to the desire to be closer to family and home, was complaining of abdominal pain and distention as well as nausea, back pain, bowel incontinence and numbness of his legs that has been present since being admitted to [facility]. He was found has pneumonia, had a bronchoscopy done, Pneumonia: Stable improving CT chest 09/18 shows cavitations in right lower lobe, consistent with necrotizing pneumonia Bronchoscopy done, cultures are pending. continue on Vancomycin and Zosyn for now Per discussion of Pulmonary and ID, and because the patient does not have any overt valvulopathy, and will likely need a longer duration of antibiotics anyway , they are not sure that a KIARA would change treatment. possible septic emboli given his septic joint and bacteremia at [facility] blood cultures are negative there was a report of him having a Strep pneumoniae positive blood culture at [facility] Ongoing antibiotics per ID recommendations. Septic arthritis: Consulted orthopedic surgery-greatly appreciate assistance Empiric antibiotic coverage with vancomycin and Zosyn Consulted Infectious disease, stitches in left knee were removed today pain control: on Oxycontin 15mg BID, Oxycodone 10mg q4 PRN, Dilaudid strictly for breakthrough ultimately patient will need to follow up at [facility] for repeat TKA once spacer in place for 6 weeks and completed 6 weeks of IV antibiotics for the time being his TKA would be put on hold until necrotizing pneumonia adequately treated and patient is stronger Cirrhosis, alcoholic, hepatitis C preliminary positive, follow up on RNA pending , HIV pending hepatitis B negative, has surface Ab Possible AK I on CKD Cr persistently high at 1.7-1.8, continue to follow continue choi, for now,plan to give a voiding trial, and then given that he had the Choi in for almost 2 months, appreciate consult from Dr. Pozo, he will continue to follow Anemia because of chronic disease, no sign of bleeding, globin stable, Possible multiple myeloma as possibility, CT 09/18 did not show any lytic lesions Hypertension, borderline diabetic, the new current care, h/o gastric ulcer, continue Protonix 40 mg p.o. daily Nutritional support PT/OT eval and treat Subjective Complaint generalized weakness, Left shoulder pain with history of rotator cuff Nursing staff found in anterior knee still has stitches, patient reports he has been there for 5-7-week, nursing staff has court order from orthopedic and have them removed, Review of Systems Constitutional: Positive weakness, or fatigue Respiratory: Mild cough, no sputum, denies wheezing, Cardiac: No chest pain, No orthopnea, Abdomen: No pain, No nausea, No vomiting, No diarrhea Musculoskeletal: Positive joint pain, No muscle pain, No swelling, No calf pain , No problem reported : Choi catheter in place , no dysuria, No urinary frequency, No incontinence , No hematuria Neurologic: No paralysis, No weakness, Psychiatric: No depression symptoms, Heme: No abnormal bleeding/bruising, No clotting problems, Skin: No rash, No itch, No new/changing skin lesions, No color change, No bleeding Physical Exam 2 Vital Signs (Past 24 Hours): Last Vital Signs Temp 37.0 C 09/25/18 00:32 Pulse 80 09/25/18 00:32 Resp 20 09/25/18 00:32 BP 156/79 H 09/25/18 00:32 Pulse Ox 97 09/25/18 00:32 Physical Exam: General: awake alert oriented x3, pleasant no acute distress. HEENT normocephalic atraumatic , mucous membranes mild dry. Cardio is regular without rubs murmurs or gallops, lungs, has decreased breathing sound and show coarse rhonchi Abdomen is soft nondistended nontender no masses or organomegaly. Extremities: Left knee in dress, no cyanosis or clubbing , 1+ edema Skin shows no rashes, no pallor or icterus. No focal neuro deficits. Results & Data Laboratory Results Laboratory Results - last 24 hr 09/20/18 09/25/1818 14:00 06:19 06:19 WBC 9.02 RBC 2.53 L Hgb 7.4 L Hct 23.1 L MCV 91.3 MCH 29.2 MCHC 32.0 RDW Std Deviation 48.7 H RDW Coeff of Leatha 14.8 H Plt Count 302 MPV 8.0 Sodium 140 Potassium 3.5 Chloride 107 Carbon Dioxide 27 Anion Gap 7.0 BUN 19 H Creatinine 2.02 H Est Cr Clr Drug Dosing 51.0 Est GFR ( Amer) 41.5 Est GFR (Non-Af Amer) 35.8 BUN/Creatinine Ratio 9.5 L Glucose 85 Calcium 7.6 L Total Bilirubin 0.3 AST 19 ALT 18 Alkaline Phosphatase 74 Total Protein 6.6 Albumin 1.3 L Globulin 5.3 H Albumin/Globulin Ratio 0.2 L Urine Total Volume 4900 Ur Creatinine mg/dL 19 L Ur Total Protein Conc 24 Ur Total Protein 24 Hr 1176 H Protein/Creat Ratio 24h 1263 H Urine Albumin (%) 10.69 U Tqnxb-9-Ikdladzs (%) 4.19 U Qrbvh-4-Edjquqfj (%) 29.88 U Beta Globulin (%) 23.91 U Gamma Globulin (%) 31.33 Urine PEP Interpret SEE NOTE Microbiology 09/24/18 12:36 Sputum, Expectorated Gram Stain - Final 09/24/18 12:36 Sputum, Expectorated Sputum Culture - Preliminary Light normal xiomara present, final report to follow. 09/24/18 10:08 Bronch Wash,Right Middle Lobe Gram Stain - Final 09/24/18 10:08 Bronch Wash,Right Middle Lobe Bronchoalveolar Lavage Culture - Preliminary Scant normal xiomara present; Final report to follow. 09/20/18 Unknown Pleural Fluid Gram Stain - Final 09/20/18 Unknown Pleural Fluid Aerobic and Anaerobic Culture - Preliminary No growth to date. 09/24/18 10:08 Bronch Wash,Right Middle Lobe Acid Fast Bacilli Smear - Final 09/24/18 10:08 Bronch Wash,Right Middle Lobe Fungal Smear - Final _ (1) Anemia Anemia type: unspecified type Bone marrow failure anemia type: Chronic kidney disease stage: Folate deficiency anemia type: Hemolytic anemia type: Iron deficiency anemia type: Other causes of anemia: Vitamin B12 deficiency anemia type: Qualified Code(s): D64.9 - Anemia, unspecified (2) Septic arthritis Laterality: left Septic arthritis location: knee Septic arthritis organism: due to unspecified organism Qualified Code(s): M00.9 - Pyogenic arthritis, unspecified (3) Gastric ulcer Gastric ulcer chronicity: unspecified ulcer chronicity Gastric ulcer complication status: unspecified whether hemorrhage or perforation present Qualified Code(s): K25.9 - Gastric ulcer, unspecified as acute or chronic, without hemorrhage or perforation (4) Hypertension Hypertension type: essential hypertension Qualified Code(s): I10 - Essential (primary) hypertension (5) Pneumonia Aspiration pneumonia type: Laterality: right Lung location: unspecified part of lung Pneumonia type: due to unspecified organism Qualified Code(s): J18.9 - Pneumonia, unspecified organism
--- NOTE | 2018-09-25 16:26 | XRay Report ---
LEFT SHOULDER 3 VIEWS CLINICAL HISTORY: Left shoulder pain. FINDINGS: 3 views of the left shoulder are obtained. No prior studies are available for comparison at the time of dictation. The skeletal structures are well mineralized. No fracture or dislocation is i dentified. Productive degenerative change is seen at the acromioclavicular joint. Mild degenerative s clerosis is noted in the greater tuberosity of the humeral head. The overlying soft tissues are withi n normal limits. Atherosclerotic calcification is noted in the left carotid bulb. The imaged left danielle g parenchyma appears clear. IMPRESSION: Mild degenerative change as above with no acute bony abnormality identified in the left s houlder. Electronically signed by: Juan Panda M.D. 09/25/2018 4:24 PM
[2018-09-25] MEDS: LIDOCAINE 5% 1 PATCH TD SCH (20:24)
[2018-09-25] MEDS: ENOXAPARIN INJ 40 MG/0.4 ML SYR SQ SCH (20:25)
[2018-09-25] MEDS: methylPREDNISolone 40 MG in SYRINGE 0 ML IV SCH (20:28)
[2018-09-25] MEDS: LORazepam 1 MG TAB PO PRN (22:14)
[2018-09-26] MEDS: OXYCODONE HCL IR 5 MG TAB (IMMEDIATE RELEASE) PO PRN ×4 (02:05→19:41)
[2018-09-26] MEDS: HYDROmorphone INJ 1 MG/ML SYRINGE IV PRN ×5 (04:12→22:32)
[2018-09-26] MEDS: DiphenhydrAMINE HCL 50 MG/ML VIAL IV PRN ×3 (04:12→17:52)
[2018-09-26] MEDS: PIPERACILLIN/TAZOBACTAM 3.375 GM in DEXTROSE 5% 100 ML IV SCH ×3 (04:13→19:41)
[2018-09-26 05:55] LABS: Hematocrit (blood only) 24.7 % (42-52); Hemoglobin 8.1 g/dL (14.0-18.0); Mean Corpuscular Hgb Conc 32.8 g/dL (32-36); Mean Corpuscular Volume 91.1 fL (80-100); Mean Platelet Volume 7.7 fL (7.4-10.4); Platelet Count 333 K/uL (130-400); RDW Coefficient of Variation 14.5 % (11.5-14.5); RDW Standard Deviation 48.1 fL (36.4-46.3); Red Blood Count 2.71 M/uL (4.7-6.1); White Blood Count 8.73 K/uL (4.8-10.8)
[2018-09-26 06:29] LABS: BUN Creatinine Ratio 9.9 (10-20); Creatinine Clr Calc Pharmacy 47.9 ml/min; Est GFR (African American) 38.5; Est GFR (Non-African American) 33.2; Potassium 4.3 mmol/L (3.5-5.1)
[2018-09-26] MEDS: LACTOBACILLUS ACIDOPHILUS (FLORANEX) TAB PO SCH ×4 (09:05→20:30)
[2018-09-26] MEDS: INSULIN ASPART 100 UNITS/ML 3 ML PEN SC SCH ×4 (09:07→20:31)
[2018-09-26] MEDS: METOPROLOL TARTRATE 25 MG TAB PO SCH ×2 (09:11→20:31)
[2018-09-26] MEDS: AMMONIUM LACTATE 12% LOTION 225 GM BTL EXT SCH ×2 (09:13→20:33)
[2018-09-26] MEDS: methylPREDNISolone 40 MG in SYRINGE 0 ML IV SCH ×2 (09:13→20:32)
--- NOTE | 2018-09-26 10:01 | XRay Report ---
TWO VIEW CHEST CLINICAL HISTORY: Pneumonia. FINDINGS: AP and lateral chest radiographs are compared to chest x-ray and chest CT dated 09/20/2018. The heart is enlarged end there is atherosclerotic calcification of the thoracic aorta. There are sm all pleural effusions. Loculated appearing fluid and dense consolidative change are again seen in the right mid to lower lung. Milder patchy consolidative changes seen in the right upper lobe. Minimal p atchy opacities are seen throughout the left lung. No pneumothorax is seen. The skeletal structures a re osteopenic. The bony thorax appears intact. IMPRESSION: 1. There is dense airspace consolidation again seen in the right mid to lower lung. There is a right pleural effusion which appears to be at least partially loculated. This is unchanged to slightly wors ened from 09/20/2018. 2. Patchy airspace consolidation is seen at the right apex and throughout the left lung. 3. There is a small left pleural effusion. 4. Cardiomegaly. Electronically signed by: Juan Panda M.D. 09/26/2018 9:59 AM
--- NOTE | 2018-09-26 10:39 | Nephrology Progress Note ---
Date of Service September 26, 2018 Assessment & Plan (1) BISHOP (acute kidney injury): -- BISHOP likely related to acute inflammation / underlying infection. Possible infection related GN. Creatinine has been relatively stable since admission (peak Cr ~ 2.0, baseline Cr ~ 0.9). Electrolyte balance is acceptable. Patient has become polyuric -- 09/[address] reviewed: No obstruction -- Urinalysis 09/10: Negative for protein, blood related to Diop catheter -- 24 hour urine studies and UIEP are pending -- SIEP c/w chronic inflammatory pattern -- UIEP c/w glomerular and tubular proteinuria -- Monitor serial PRP (2) Polyuria: -- Patient remains polyuric -- Serum sodium is not elevated and patient does not have significant azotemia -- Patient does c/o orthostasis. Will order orthostatic vitals today -- No recent h/o diuretic therapy. Serum glucose is not severly elevated. Corrected calcium is within normal limits. -- Will provide one dose SQ dDAVP and monitor UO, serum and urine osmolality -- EGFR is ~ 40 cc/min. Will order pituitary MRI to assess for posterior pituitary injury (3) Pneumonia: -- Await bronchoscopy culture results (4) Septic arthritis: -- Recommend narrowing antibiotic spectrum. Consider stopping Vancomycin if possible -- Await culture results from [facility] -- Await further input from ID (5) Cirrhosis, alcoholic: (6) History of intravenous drug abuse: (7) PTSD (post-traumatic stress disorder): Subjective Mr. Ramon was seen & examined in his hospital room this morning. He currently denies dyspnea but still has cough productive of yellow / back sputum. Bronchoscopy cultures are pending. Patient has nearly 2 L urine in Diop collection bag. Patient relates that he became lightheaded when standing with PT yesterday. Constitutional: + weakness; no fever Respiratory: + cough and + change in sputum Physical Exam 2 Vital Signs (Past 24 Hours): Last Vital Signs Temp 36.7 C 09/26/18 09:17 Pulse 71 09/26/18 09:17 Resp 18 09/26/18 09:17 BP 159/79 H 09/26/18 09:17 Pulse Ox 98 09/26/18 09:17 Eyes: + anicteric sclerae and PERRL ENMT: external ear and nose normal, oropharynx normal Neck: trachea midline, no thyromegaly Respiratory: normal respiratory effort, lungs clear to auscultation Cardiovascular: Rate/Rhythm: regular rate and regular rhythm Extremities: + edema (trace pretibial pitting edema) Psychiatric: Orientation: + guarded Apperance: + disheveled Affect: + labile affect Mood: + depressed mood and + anxious mood _ (1) Pneumonia Aspiration pneumonia type: Laterality: right Lung location: unspecified part of lung Pneumonia type: due to unspecified organism Qualified Code(s): J18.9 - Pneumonia, unspecified organism (2) Septic arthritis Laterality: left Septic arthritis location: knee Septic arthritis organism: due to unspecified organism Qualified Code(s): M00.9 - Pyogenic arthritis, unspecified
[2018-09-26] MEDS: OXYCODONE HCL 15 MG TABCR (OXYCONTIN) PO SCH ×2 (10:48→22:32)
[2018-09-26] MEDS ORDERED: DESMOPRESSIN ACETATE 4 MCG/ML 1 ML AMP SQ ONE (11:10)
--- NOTE | 2018-09-26 12:19 | Progress Note ---
DATE: 09/26/2018 Chart reviewed, patient examined. No significant change clinically, but repeat chest x-ray continues to show areas of consolidation as well as loculated right pleural effusion, certainly one cannot rule out empyema or a parapneumonic effusion as the etiology. I suspect an organized area of pneumonia and suspect that the area of pneumonia, perhaps even a necrotizing pneumonia seeded the blood and seeded his left knee joint where the strep pneumo apparently was grown from. I agree with Dr. Faye that it is unlikely he has about subacute bacterial endocarditis, and the treatment would still be 6 weeks of therapy. In any event, he is going through a polyuria phase of his acute renal injury and will be given subcu DDAVP, and urine output will be monitored. At this point, cultures of the bronchial washing are nondiagnostic as expected. Patient may benefit from evaluation with Dr. Sinclair to even consider possible decortication and drainage.
[2018-09-26] MEDS ORDERED: VANCOMYCIN TROUGH ONE (13:30)
[2018-09-26] MEDS: VANCOMYCIN HCL 1,000 MG in SODIUM CHLORIDE 0.9% 250 ML IV SCH (13:45)
--- NOTE | 2018-09-26 14:17 | Infectious Disease Progress Nt ---
Date of Service September 26, 2018 Assessment & Plan (1) Pneumonia: Patient with progressive cavitary pneumonia, not clear whether this is from septic emboli or whether pneumococcal infection was primary process. Given that patient will receive 6+ weeks of IV ABx, do not think need KIARA to document endocarditis as will be treated adequately. Agree with thoracic surgery evaluation for possible empyema. Will follow. (2) Infection associated with internal left knee prosthesis: Surgical dressing intact left knee patient with infected left TKA status post removal of prosthesis and placement of antibiotic spacer. We will need to obtain culture results from [facility] to optimize his antibiotic therapy as will require at least 6 weeks of IV antibiotics total before reimplantation. Also requires ongoing treatment for his pneumonia, we will continue on vancomycin and Zosyn pending further culture results. Will follow. Subjective Patient seen in follow-up for cavitary pneumonia, septic arthritis. Patient is status post bronchoscopy, AFB urine fungal smears are negative, cultures only growing normal xiomara present. Patient feeling slightly better, no increase in shortness of breath or chest pain. Remains afebrile. Review of Systems All systems reviewed & are unremarkable except as noted in HPI & below Physical Exam 2 Vital Signs (Past 24 Hours): Last Vital Signs Temp 36.7 C 09/26/18 09:17 Pulse 71 09/26/18 09:17 Resp 18 09/26/18 09:17 BP 159/79 H 09/26/18 09:17 Pulse Ox 98 09/26/18 09:17 Constitutional: WD/WN, vitals as above comfortable; no acute distress Eyes: PERRL, conjunctivae normal, anicteric sclerae ENMT: external ear and nose normal, oropharynx normal Neck: trachea midline, no thyromegaly neck nontender Respiratory: no respiratory distress, no labored breathing and does not use accessory muscles Auscultation: + rhonchi (Right-sided) Cardiovascular: Rate/Rhythm: regular rate and regular rhythm Heart Sounds: normal S1 and normal S2; no gallop, no murmur and no cardiac rub Vessels: normal peripheral pulses; no JVD Gastrointestinal (Abdomen): normal bowel sounds, soft, nontender, no hepatosplenomegaly Musculoskeletal: no cyanosis or clubbing, extremities motor strength 5/5 Head/Neck/Chest: normocephalic and head atraumatic Extremities: no cyanosis and no clubbing Knee: + surgical incision (Intact) Skin: no rashes, warm and dry no lesions Neurologic: patellar DTR's 2+ bilat, sensation intact moves all extremities and awake; no focal motor deficits Motor/Sensory: no sensory deficit Psychiatric: A+Ox3, euthymic affect Orientation: cooperative Lymphatic: no cervical or axillary lymphadenopathy no inguinal lymphadenopathy Results & Data Laboratory Results Short CBC 09/26/18 Range/Units 05:36 WBC 8.73 (4.8-10.8) K/uL Hgb 8.1 L (14.0-18.0) g/dL Hct 24.7 L (42-52) % Plt Count 333 (130-400) K/uL BMP 09/26/18 05:36 Sodium 138 Potassium 4.3 D Chloride 106 Carbon Dioxide 27 BUN 21 H Creatinine 2.15 H Glucose 177 H Calcium 8.0 L Diagnostic Findings Microbiology 09/20/18 Unknown Pleural Fluid Gram Stain - Final 09/20/18 Unknown Pleural Fluid Aerobic and Anaerobic Culture - Final No growth 09/24/18 12:36 Sputum, Expectorated Gram Stain - Final 09/24/18 12:36 Sputum, Expectorated Sputum Culture - Final Light normal xiomara. 09/24/18 10:08 Bronch Wash,Right Middle Lobe Gram Stain - Final 09/24/18 10:08 Bronch Wash,Right Middle Lobe Bronchoalveolar Lavage Culture - Final Scant normal xiomara. 09/24/18 10:08 Bronch Wash,Right Middle Lobe Acid Fast Bacilli Smear - Final 09/24/18 10:08 Bronch Wash,Right Middle Lobe Fungal Smear - Final 09/23/18 12:11 Blood Cryptococcal Antigen - Final 09/10/18 07:19 Blood Blood Culture - Final No growth 09/10/18 07:10 Blood Blood Culture - Final No growth 09/13/18 12:17 Sputum, Expectorated Gram Stain - Final 09/13/18 12:17 Sputum, Expectorated Sputum Culture - Final Light normal xiomara. 09/10/18 07:53 Urine,Straight Cath Urine Culture - Final No growth - less than 1,000 colonies/mL. TWO VIEW CHEST CLINICAL HISTORY: Pneumonia. FINDINGS: AP and lateral chest radiographs are compared to chest x-ray and chest CT dated 09/20/2018. The heart is enlarged end there is atherosclerotic calcification of the thoracic aorta. There are small pleural effusions. Loculated appearing fluid and dense consolidative change are again seen in the right mid to lower lung. Milder patchy consolidative changes seen in the right upper lobe. Minimal patchy opacities are seen throughout the left lung. No pneumothorax is seen. The skeletal structures are osteopenic. The bony thorax appears intact. IMPRESSION: 1. There is dense airspace consolidation again seen in the right mid to lower lung. There is a right pleural effusion which appears to be at least partially loculated. This is unchanged to slightly worsened from 09/20/2018. 2. Patchy airspace consolidation is seen at the right apex and throughout the left lung. 3. There is a small left pleural effusion. 4. Cardiomegaly. Electronically signed by: Juan Panda M.D. 09/26/2018 9:59 AM Dictated: 09/26/18 0955 _ (1) Pneumonia Aspiration pneumonia type: Laterality: right Lung location: unspecified part of lung Pneumonia type: due to unspecified organism Qualified Code(s): J18.9 - Pneumonia, unspecified organism
--- NOTE | 2018-09-26 14:28 | Pharmacy Report ---
Pharmacy Abx Dose Short Note - Date of Service September 26, 2018 - Assessment & Plan Assessment 58 year old M receiving Vanc and Zosyn for treatment of septic arthritis and pneumonia Day # 17 of antimicrobial therapy. Plan Vancomycin * Trough level of 18 mcg/mL is therapeutic (slightly elevated from the last trough collected) * Continue dose of 1000 mg IV every 24 hours * Goal trough level for septic arthritis/PNA: 15 to 20 mcg/mL * Trough level will be ordered again in a few days, or sooner if there is a significant change in patient's condition Pharmacy will continue to follow and will adjust dose/frequency as necessary. Thank you.
--- NOTE | 2018-09-26 14:31 | Hospitalist Progress Note ---
Date of Service September 26, 2018 Assessment & Plan (1) Polyuria: (2) History of intravenous drug abuse: (3) Cirrhosis, alcoholic: (4) BISHOP (acute kidney injury): (5) Infection associated with internal left knee prosthesis: (6) Anemia: (7) Borderline diabetes: (8) Hypertension: (9) Pneumonia: (10) Septic arthritis: (11) Edema, peripheral: 58-year-old -[place] male with history of hypertension, former IV heroin and alcohol abuse and borderline diabetes presenting with knee pain was admitted on Sep 10 2018 Patient presented complaining of worsening left knee pain, was hospitalized at [facility] for over a month secondary to an infection of his left knee prosthesis (initially placed in 2007), hx of multiple revisions to his left knee. 4 days prior to this admission, the prosthesis was removed and replaced with an antibiotic spacer, left [facility] AMA due to the desire to be closer to family and home, was complaining of abdominal pain and distention as well as nausea, back pain, bowel incontinence and numbness of his legs that has been present since being admitted to [facility]. He was found has pneumonia, had a bronchoscopy done, Pneumonia: Stable improving CT chest 09/18 shows cavitations in right lower lobe, consistent with necrotizing pneumonia Bronchoscopy done, cultures are pending repeat chest x-ray continues to show areas of consolidation, loculated right pleural effusion, cannot rule out empyema will reequest Dr. Sinclair to consider possible decortication and drainage. continue on Vancomycin and Zosyn for now Discussed with concrete stone fabricator and infectious disease, because the patient does not have any overt valvulopathy in TTE, and anyway he need long duration of antibiotics, KIARA would change treatment. possible septic emboli given his septic joint and bacteremia at [facility] blood cultures are negative his hospital there was a report of him having a Strep pneumoniae positive blood culture at [facility] Ongoing antibiotics per ID recommendations. Septic arthritis: Consulted orthopedic surgery-greatly appreciate assistance Empiric antibiotic coverage with vancomycin and Zosyn Consulted Infectious disease, stitches in left knee were removed Back pain, left shoulder pain, continue pain control: on Oxycontin 15mg BID, Oxycodone 10mg q4 PRN, Dilaudid strictly for breakthrough patient will need to follow up at [facility] for repeat TKA once spacer in place for 6 weeks and completed 6 weeks of IV antibiotics for the time being. his TKA would be put on hold until necrotizing pneumonia adequately treated and patient is stronger Cirrhosis, alcoholic, hepatitis C preliminary positive, follow up on RNA pending , HIV pending hepatitis B negative, has surface Ab Possible AK I on CKD Associated with polyuria, farm reporter called me, recommend one dose SQ dDAVP and monitor UO, serum and urine osmolality has ordered pituitary MRI to assess for posterior pituitary injury continue choi, for now,plan to give a voiding trial, and then given that he had the Choi in for almost 2 months, Anemia because of chronic disease, no sign of bleeding, globin stable, Possible multiple myeloma as possibility, CT 09/18 did not show any lytic lesions Hypertension, borderline diabetic, the new current care, h/o gastric ulcer, continue Protonix 40 mg p.o. daily Left shoulder pain , x-ray has no acute disease, has ordered heating pack, Nutritional support PT/OT eval and treat Subjective generalized weakness, Left shoulder still pain with history of rotator cuff Obviously has increased urine output, denied dizziness, was out of bed to chair yesterday, with PT, polyp Review of Systems Constitutional: Positive weakness, or fatigue Respiratory: Mild cough, no sputum, denies wheezing, Cardiac: No chest pain, No orthopnea, Abdomen: No pain, No nausea, No vomiting, No diarrhea Musculoskeletal: Positive joint pain, No muscle pain, No swelling, No calf pain , No problem reported : Choi catheter in place , no dysuria, No urinary frequency, No incontinence , No hematuria Neurologic: No paralysis, No weakness, Psychiatric: No depression symptoms, Heme: No abnormal bleeding/bruising, No clotting problems, Skin: No rash, No itch, No new/changing skin lesions, No color change, No bleeding Physical Exam 2 Vital Signs (Past 24 Hours): Last Vital Signs Temp 36.7 C 09/26/18 09:17 Pulse 71 09/26/18 09:17 Resp 18 09/26/18 09:17 BP 159/79 H 09/26/18 09:17 Pulse Ox 98 09/26/18 09:17 Physical Exam: General: Looks frail, chronically ill looking, generalized weak , awake alert oriented x3, pleasant no acute distress. HEENT normocephalic atraumatic , mucous membranes mild dry. Cardio is regular without rubs murmurs or gallops, lungs, has decreased breathing sound and show coarse rhonchi Abdomen is soft nondistended nontender no masses or organomegaly. Extremities: Left knee in dress, no cyanosis or clubbing , 1+ edema Skin shows no rashes, no pallor or icterus. No focal neuro deficits. Results & Data Laboratory Results Laboratory Results - last 24 hr 09/24/18 09/26/18 09/26/18 10:08 02:09 03:52 WBC RBC Hgb Hct MCV MCH MCHC RDW Std Deviation RDW Coeff of Leatha Plt Count MPV Sodium Potassium Chloride Carbon Dioxide Anion Gap BUN Creatinine Est Cr Clr Drug Dosing Est GFR ( Amer) Est GFR (Non-Af Amer) BUN/Creatinine Ratio Glucose POC Glucose 200 H 138 H Calcium Urine Osmolality Vancomycin Trough CMV DNA Qual PCR Cancelled Ref Lab Test Source Cancelled 09/26/18 09/26/18 09/26/18 05:36 05:36 11:00 WBC 8.73 RBC 2.71 L Hgb 8.1 L Hct 24.7 L MCV 91.1 MCH 29.9 MCHC 32.8 RDW Std Deviation 48.1 H RDW Coeff of Leatha 14.5 Plt Count 333 MPV 7.7 Sodium 138 Potassium 4.3 D Chloride 106 Carbon Dioxide 27 Anion Gap 5.0 BUN 21 H Creatinine 2.15 H Est Cr Clr Drug Dosing 47.9 Est GFR ( Amer) 38.5 Est GFR (Non-Af Amer) 33.2 BUN/Creatinine Ratio 9.9 L Glucose 177 H POC Glucose Calcium 8.0 L Urine Osmolality 372 L Vancomycin Trough CMV DNA Qual PCR Ref Lab Test Source 09/26/18 09/26/18 11:14 13:16 WBC RBC Hgb Hct MCV MCH MCHC RDW Std Deviation RDW Coeff of [place] Plt Count MPV Sodium Potassium Chloride Carbon Dioxide Anion Gap BUN Creatinine Est Cr Clr Drug Dosing Est GFR ( Amer) Est GFR (Non-Af Amer) BUN/Creatinine Ratio Glucose POC Glucose 188 H Calcium Urine Osmolality Vancomycin Trough 18.0 CMV DNA Qual PCR Ref Lab Test Source Microbiology 09/20/18 Unknown Pleural Fluid Gram Stain - Final 09/20/18 Unknown Pleural Fluid Aerobic and Anaerobic Culture - Final No growth 09/24/18 12:36 Sputum, Expectorated Gram Stain - Final 09/24/18 12:36 Sputum, Expectorated Sputum Culture - Final Light normal xiomara. 09/24/18 10:08 Bronch Wash,Right Middle Lobe Gram Stain - Final 09/24/18 10:08 Bronch Wash,Right Middle Lobe Bronchoalveolar Lavage Culture - Final Scant normal xiomara. _ (1) Anemia Anemia type: unspecified type Iron deficiency anemia type: Vitamin B12 deficiency anemia type: Folate deficiency anemia type: Bone marrow failure anemia type: Hemolytic anemia type: Other causes of anemia: Chronic kidney disease stage: Qualified Code(s): D64.9 - Anemia, unspecified (2) Hypertension Hypertension type: essential hypertension Qualified Code(s): I10 - Essential (primary) hypertension (3) Pneumonia Aspiration pneumonia type: Laterality: right Lung location: unspecified part of lung Pneumonia type: due to unspecified organism Qualified Code(s): J18.9 - Pneumonia, unspecified organism (4) Septic arthritis Laterality: left Septic arthritis location: knee Septic arthritis organism: due to unspecified organism Qualified Code(s): M00.9 - Pyogenic arthritis, unspecified
[2018-09-26 15:23] LABS: BUN Creatinine Ratio 10.8 (10-20); Calcium 7.8 mg/dl (8.5-10.1); Creatinine Clr Calc Pharmacy 49.8 ml/min; Est GFR (African American) 40.3; Est GFR (Non-African American) 34.8; Potassium 4.5 mmol/L (3.5-5.1)
[2018-09-26] MEDS: LIDOCAINE 5% 1 PATCH TD SCH (20:30)
[2018-09-26] MEDS: ENOXAPARIN INJ 40 MG/0.4 ML SYR SQ SCH (20:32)
[2018-09-26] MEDS: LORazepam 1 MG TAB PO PRN (22:26)
[2018-09-27] MEDS: DiphenhydrAMINE HCL 50 MG/ML VIAL IV PRN ×3 (02:47→20:43)
[2018-09-27] MEDS: HYDROmorphone INJ 1 MG/ML SYRINGE IV PRN ×5 (02:48→21:26)
[2018-09-27] MEDS: PIPERACILLIN/TAZOBACTAM 3.375 GM in DEXTROSE 5% 100 ML IV SCH ×3 (04:13→19:32)
[2018-09-27] MEDS: OXYCODONE HCL IR 5 MG TAB (IMMEDIATE RELEASE) PO PRN ×5 (04:15→23:32)
[2018-09-27 06:38] LABS: Hematocrit (blood only) 25.3 % (42-52); Hemoglobin 8.1 g/dL (14.0-18.0); Mean Corpuscular Volume 91.3 fL (80-100); Mean Platelet Volume 8.5 fL (7.4-10.4); Platelet Count 353 K/uL (130-400); RDW Coefficient of Variation 14.7 % (11.5-14.5); RDW Standard Deviation 49.3 fL (36.4-46.3); Red Blood Count 2.77 M/uL (4.7-6.1); White Blood Count 11.16 K/uL (4.8-10.8)
[2018-09-27 07:12] LABS: BUN Creatinine Ratio 13.2 (10-20); Creatinine Clr Calc Pharmacy 50.5 ml/min; Est GFR (Non-African American) 35.4; Potassium 4.4 mmol/L (3.5-5.1)
[2018-09-27] MEDS: INSULIN ASPART 100 UNITS/ML 3 ML PEN SC SCH ×4 (08:02→21:25)
[2018-09-27] MEDS: LACTOBACILLUS ACIDOPHILUS (FLORANEX) TAB PO SCH ×4 (08:03→20:30)
[2018-09-27] MEDS: AMMONIUM LACTATE 12% LOTION 225 GM BTL EXT SCH ×2 (10:06→20:30)
[2018-09-27] MEDS: methylPREDNISolone 40 MG in SYRINGE 0 ML IV SCH ×2 (10:07→20:30)
[2018-09-27] MEDS: METOPROLOL TARTRATE 25 MG TAB PO SCH ×2 (10:07→20:31)
--- NOTE | 2018-09-27 11:09 | Nephrology Progress Note ---
Date of Service September 27, 2018 Assessment & Plan (1) BISHOP (acute kidney injury): -- BISHOP likely related to acute inflammation / underlying infection. Possible infection related GN. Creatinine has been relatively stable since admission (peak Cr ~ 2.0, baseline Cr ~ 0.9). Electrolyte balance is acceptable. -- 09/[address] reviewed: No obstruction -- Urinalysis 09/10: Negative for protein, blood related to Diop catheter -- 24 hour urine studies and UIEP are pending -- SIEP c/w chronic inflammatory pattern -- UIEP c/w glomerular and tubular proteinuria -- Monitor serial PRP (2) Polyuria: -- UO improved. No acute indication for dDAVP this am. Will monitor -- Patient refused MRI yesterday (3) Pneumonia: -- Bacterial cultures are NGTD -- Fungal and AFB cultures are pending -- Patient is scheduled for repeat bronchoscopy today (4) Septic arthritis: -- ID recommends 6 weeks empiric antibiotic therapy (5) Cirrhosis, alcoholic: (6) History of intravenous drug abuse: (7) PTSD (post-traumatic stress disorder): Subjective Mr. Ramon was seen & examined in his hospital room this morning. He currently denies dyspnea but still has cough productive of yellow / brown sputum. He is scheduled for repeat bronchoscopy this am Constitutional: + weakness; no fever Respiratory: + cough and + change in sputum Physical Exam 2 Vital Signs (Past 24 Hours): Last Vital Signs Temp 36.8 C 09/27/18 07:36 Pulse 81 09/27/18 07:36 Resp 20 09/27/18 07:36 BP 165/94 H 09/27/18 07:36 Pulse Ox 96 09/27/18 07:36 Eyes: + anicteric sclerae and PERRL ENMT: external ear and nose normal, oropharynx normal Neck: trachea midline, no thyromegaly Respiratory: normal respiratory effort, lungs clear to auscultation Cardiovascular: Rate/Rhythm: regular rate and regular rhythm Extremities: + edema (trace pretibial pitting edema) Psychiatric: Orientation: + guarded Apperance: + disheveled Affect: + labile affect Mood: + depressed mood and + anxious mood Results & Data Laboratory Results Laboratory Tests 09/25/18 09/26/18 09/26/18 06:19 05:36 05:36 WBC 8.73 Hgb 8.1 L Hct 24.7 L Plt Count 333 Sodium 138 Potassium 4.3 D Chloride 106 Carbon Dioxide 27 BUN 21 H Creatinine 2.15 H Glucose 177 H Calcium 8.0 L Albumin 1.3 L 09/27/18 09/27/18 06:22 06:22 WBC 11.16 H Hgb 8.1 L Hct 25.3 L Plt Count 353 Sodium 139 Potassium 4.4 Chloride 106 Carbon Dioxide 27 BUN 27 H Creatinine 2.04 H Glucose 103 H Calcium Albumin _ (1) Pneumonia Aspiration pneumonia type: Laterality: right Lung location: unspecified part of lung Pneumonia type: due to unspecified organism Qualified Code(s): J18.9 - Pneumonia, unspecified organism (2) Septic arthritis Laterality: left Septic arthritis location: knee Septic arthritis organism: due to unspecified organism Qualified Code(s): M00.9 - Pyogenic arthritis, unspecified
--- NOTE | 2018-09-27 11:53 | Progress Note ---
DATE: 09/27/2018 The patient examined, chart reviewed. SUBJECTIVE: The patient continues to be symptomatic, quite anemic, although afebrile, hemodynamics. OBJECTIVE: VITAL SIGNS: Blood pressure 165/94, pulse 81 and regular, respiratory rate 20, temperature 36.8, O2 sat 96% on room air. SKIN: Warm and dry. HEENT: Atraumatic, normocephalic, PERRLA, EOMI. Conjunctivae pale. Sclerae nonicteric. Fundi poorly visualized. NECK: Veins not distended at 45 degrees. No evidence of adenopathy in the supra or infraclavicular areas. LUNGS: Rhonchi, right base, mid axillary region. CARDIAC: Regular rate and rhythm. I do not appreciate a gallop. ABDOMEN: Soft, scaphoid. EXTREMITIES: No pedal edema, clubbing, cyanosis. NEUROLOGICAL: Intact. LABORATORY DATA: Chest x-ray yesterday continues to show patchy airspace consolidation right apex throughout the left lung, small left pleural effusion and dense airspace consolidation, right mid to lower lung zone with a loculated right pleural effusion. White count 11,000, H and H 8.1 and 25.3. Cultures from the bronchial washings unremarkable. BUN 27, creatinine 2.0. OVERALL ASSESSMENT: A 58-year-old black male with necrotizing pneumonia, presumably secondary to strep pneumonia with cavitary process, suspect a lung abscess with no obvious obstructive phenomenon bronchoscopically with severe anemia and septic left knee joint, suspect bacteremia from primary lung source, although subacute bacterial endocarditis cannot be ruled out. I understand the reasoning behind continue therapy. I believe even though the thoracentesis previously showed a transudative effusion or at least a sterile one, we cannot be sure that currently, the patient does not have a loculated empyema. I would like to repeat a CT scan of the chest and review today and compare to prior study. I do believe the patient will need transfusion at some point to help with O2 delivery and possibly with the healing process.
[2018-09-27] MEDS: OXYCODONE HCL 15 MG TABCR (OXYCONTIN) PO SCH ×2 (12:08→22:30)
--- NOTE | 2018-09-27 12:23 | CT Scan Report ---
CT-GUIDED FINE-NEEDLE ASPIRATION HISTORY: Right lung cavitary lesion. Pleural fluid collection. PROCEDURE: The risks, benefits, and alternatives to a CT-guided fine-needle aspiration/drainage of a pleural fluid collection were discussed with the patient and written informed consent was obtained. P reliminary imaging of the right lung/pleural abnormality was performed to determine a safe needle int o site. 1% lidocaine was used for local anesthesia. A single pass using a 20-gauge x 3 1/2 in. spinal needle was made into the right pleural fluid collection. A total of 10 cc of blood products was aspi rated. This was given to the on-site certification and selection specialist who determined blood within the sample. No braydon pus was identified. Therefore, a drainage catheter was not placed and no additional aspiration was reques eric by the on-site ordering physician. Post procedure imaging showed no immediate complication. The p atient tolerated the procedure well. The patient was transported back to the floor in stable [facility] n. IMPRESSION: CT-guided fine needle aspiration of a right pleural/lung cavitary abnormality with specimen sent to c ytology and microbiology at the request of the ordering physician. Electronically signed by: Angel Camarena M.D. 09/27/2018 12:22 PM
--- NOTE | 2018-09-27 12:28 | CT Scan Report ---
CT-guided FINE-NEEDLE ASPIRATION HISTORY: Cavitary lung/pleural abnormality. PROCEDURE: The risks, benefits, and alternatives to a CT-guided fine-needle aspiration/drainage of a pleural fluid collection were discussed with the patient and written informed consent was obtained. P reliminary imaging of the right lung/pleural abnormality was performed to determine a safe needle int o site. 1% lidocaine was used for local anesthesia. A single pass using a 20-gauge x 3 1/2 in. spinal needle was made into the right pleural fluid collection. A total of 10 cc of blood products was aspi rated. This was given to the on-site central office technician who determined blood within the sample. No braydon pus was identified. Therefore, a drainage catheter was not placed and no additional aspiration was reques eric by the on-site ordering physician. Post procedure imaging showed no immediate complication. The p atient tolerated the procedure well. The [facility] IMPRESSION: CT-guided fine needle aspiration of a right pleural/lung cavitary abnormality with specimen sent to c ytology and microbiology at the request of the ordering physician. Electronically signed by: Angel Camarena M.D. 09/27/2018 12:27 PM
--- NOTE | 2018-09-27 13:10 | XRay Report ---
XR chest inspiration/expiratio CLINICAL HISTORY: 58 years-old Male presenting with post ct guided aspiration. TECHNIQUE: Portable upright AP views of the chest were obtained in inspiration and expiration. COMPARISON: Chest CT from 09/27/2018 and chest x-ray from 09/26/2018. FINDINGS: Cardiac silhouette enlarged. Redemonstration of extensive right mid to basilar lung consolidation wit h additional patchy opacity in the right upper lung and subtle patchy opacities in the periphery of t he left lung. Mildly low lung volumes, unchanged. Moderate right pleural effusion, which is loculated , unchanged. No pneumothorax. Degenerative changes of the thoracic spine. Upper abdomen normal. IMPRESSION: 1. No postprocedural pneumothorax. 2. Persistent extensive right mid to basilar consolidation with moderate loculated right pleural eff usion. Additional patchy opacities elsewhere in both lungs as on prior exam. Electronically signed by: Thom Mistry M.D. 09/27/2018 1:09 PM
[2018-09-27] MEDS: VANCOMYCIN HCL 1,000 MG in SODIUM CHLORIDE 0.9% 250 ML IV SCH (14:04)
[2018-09-27 14:40] LABS: Hematocrit (blood only) 25.8 % (42-52); Hemoglobin 8.3 g/dL (14.0-18.0)
--- NOTE | 2018-09-27 14:51 | Infectious Disease Progress Nt ---
Date of Service September 27, 2018 Assessment & Plan (1) Pneumonia: Patient with progressive cavitary pneumonia, not clear whether this is from septic emboli or whether pneumococcal infection was primary process. Given that patient will receive 6+ weeks of IV ABx, do not think need KIARA to document endocarditis as will be treated adequately. Agree with thoracic surgery evaluation for possible empyema. Will follow. (2) Infection associated with internal left knee prosthesis: Subjective Patient seen in follow-up for cavitary pneumonia, septic arthritis. Patient is status post bronchoscopy, AFB urine fungal smears are negative, cultures only growing normal xiomara present. Patient feeling slightly better, still with significant shortness of breath and weakness. Remains anemic. No fever. Physical Exam 2 Vital Signs (Past 24 Hours): Last Vital Signs Temp 36.8 C 09/27/18 07:36 Pulse 81 09/27/18 07:36 Resp 20 09/27/18 07:36 BP 165/94 H 09/27/18 07:36 Pulse Ox 96 09/27/18 07:36 Constitutional: WD/WN, vitals as above comfortable; no acute distress Eyes: PERRL, conjunctivae normal, anicteric sclerae ENMT: external ear and nose normal, oropharynx normal Neck: trachea midline, no thyromegaly neck nontender Respiratory: no respiratory distress and no labored breathing Auscultation : + rales (Bilateral) and + rhonchi (Right-sided) Cardiovascular: Rate/Rhythm: regular rate and regular rhythm Heart Sounds: normal S1 and normal S2; no gallop, no murmur and no cardiac rub Vessels: normal peripheral pulses; no JVD Gastrointestinal (Abdomen): normal bowel sounds, soft, nontender, no hepatosplenomegaly Musculoskeletal: no cyanosis or clubbing, extremities motor strength 5/5 Head/Neck/Chest: normocephalic and head atraumatic Extremities: no cyanosis and no clubbing Knee: + surgical incision (Intact) Skin: no rashes, warm and dry no lesions Neurologic: patellar DTR's 2+ bilat, sensation intact moves all extremities and awake; no focal motor deficits Motor/Sensory: no sensory deficit Psychiatric: A+Ox3, euthymic affect Orientation: cooperative Lymphatic: no cervical or axillary lymphadenopathy no inguinal lymphadenopathy Results & Data Laboratory Results Short CBC 09/27/18 09/27/18 Range/Units 06:22 14:31 WBC 11.16 H (4.8-10.8) K/uL Hgb 8.1 L 8.3 L (14.0-18.0) g/dL Hct 25.3 L 25.8 L (42-52) % Plt Count 353 (130-400) K/uL [facility] 09/26/18 09/27/18 14:52 06:22 Sodium 139 139 Potassium 4.5 4.4 Chloride 108 H 106 Carbon Dioxide 26 27 BUN 22 H 27 H Creatinine 2.07 H 2.04 H Glucose 133 H 103 H Calcium 7.8 L 8.0 L Diagnostic Findings Microbiology 09/20/18 Unknown Pleural Fluid Gram Stain - Final 09/20/18 Unknown Pleural Fluid Aerobic and Anaerobic Culture - Final No growth 09/24/18 12:36 Sputum, Expectorated Gram Stain - Final 09/24/18 12:36 Sputum, Expectorated Sputum Culture - Final Light normal xiomara. 09/24/18 10:08 Bronch Wash,Right Middle Lobe Gram Stain - Final 09/24/18 10:08 Bronch Wash,Right Middle Lobe Bronchoalveolar Lavage Culture - Final Scant normal xiomara. 09/24/18 10:08 Bronch Wash,Right Middle Lobe Acid Fast Bacilli Smear - Final 09/24/18 10:08 Bronch Wash,Right Middle Lobe Fungal Smear - Final 09/23/18 12:11 Blood Cryptococcal Antigen - Final 09/10/18 07:19 Blood Blood Culture - Final No growth 09/10/18 07:10 Blood Blood Culture - Final No growth 09/13/18 12:17 Sputum, Expectorated Gram Stain - Final 09/13/18 12:17 Sputum, Expectorated Sputum Culture - Final Light normal xiomara. 09/10/18 07:53 Urine,Straight Cath Urine Culture - Final No growth - less than 1,000 colonies/mL. _ (1) Pneumonia Aspiration pneumonia type: Laterality: right Lung location: unspecified part of lung Pneumonia type: due to unspecified organism Qualified Code(s): J18.9 - Pneumonia, unspecified organism
--- NOTE | 2018-09-27 14:59 | XRay Report ---
XR chest 1V portable HISTORY: 58 years-old Male lung mass follow-up study in a patient with reported lung mass COMPARISON: Chest radiograph 09/26/2018, CT chest 09/27/2018 TECHNIQUE: Portable AP view the chest FINDINGS: Cardiac silhouette is enlarged, unchanged. Moderate right pleural effusion with loculation and multif ocal mixed interstitial and alveolar opacities about the right lung redemonstrated. Scattered alveola r opacities about the medial left upper lung and left lung base are also redemonstrated. No postproce dural pneumothorax identified. Degenerative changes of the shoulders and spine. IMPRESSION: 1. No postprocedural pneumothorax. 2. Loculated moderate sized right pleural effusion with unchanged right greater than left bilateral o pacities. The above report was generated using voice recognition software. It may contain grammatical, syntax o r spelling errors. Electronically signed by: Jerome Klein M.D. 09/27/2018 2:57 PM
--- NOTE | 2018-09-27 15:38 | Hospitalist Progress Note ---
Date of Service September 27, 2018 Assessment & Plan (1) Polyuria: (2) History of intravenous drug abuse: (3) Cirrhosis, alcoholic: (4) BISHOP (acute kidney injury): (5) Infection associated with internal left knee prosthesis: (6) Anemia: (7) Borderline diabetes: (8) Hypertension: (9) Pneumonia: (10) Septic arthritis: (11) Edema, peripheral: 58-year-old -[place] male with history of hypertension, former IV heroin and alcohol abuse and borderline diabetes presenting with knee pain was admitted on Sep 10 2018 Patient presented complaining of worsening left knee pain, was hospitalized at [facility] for over a month secondary to an infection of his left knee prosthesis (initially placed in 2007), hx of multiple revisions to his left knee. 4 days prior to this admission, the prosthesis was removed and replaced with an antibiotic spacer, left [facility] AMA due to the desire to be closer to family and home, was complaining of abdominal pain and distention as well as nausea, back pain, bowel incontinence and numbness of his legs that has been present since being admitted to [facility]. He was found has pneumonia, had a bronchoscopy done, Possible necrotizing pneumonia/empyema, p resumably secondary to strep pneumonia with cavitary process, suspect a lung abscess. CT chest 09/18 shows cavitations in right lower lobe, consistent with necrotizing pneumonia Bronchoscopy done, cultures are pending repeat chest x-ray continues to show areas of consolidation, loculated right pleural effusion, cannot rule out empyema Dr. Sinclair has ordered CT-guided biopsy, continue on Vancomycin and Zosyn for now Discussed with marketing consultant and infectious disease, because the patient does not have any overt valvulopathy in TTE, and anyway he need long duration of antibiotics, KIARA would change treatment. possible septic emboli given his septic joint and bacteremia at [facility] blood cultures are negative his hospital there was a report of him having a Strep pneumoniae positive blood culture at [facility] Ongoing antibiotics per ID recommendations, will receive 6+ weeks of IV ABx, Septic arthritis: Consulted orthopedic surgery-greatly appreciate assistance Empiric antibiotic coverage with vancomycin and Zosyn Consulted Infectious disease, stitches in left knee were removed Back pain, left shoulder pain, continue pain control: on Oxycontin 15mg BID, Oxycodone 10mg q4 PRN, Dilaudid for breakthrough patient will need to follow up at [facility] for repeat TKA once spacer in place for 6 weeks and completed 6 weeks of IV antibiotics for the time being. his TKA would be put on hold until necrotizing pneumonia adequately treated and patient is stronger Cirrhosis, alcoholic, hepatitis C preliminary positive, HIV pending, hepatitis B negative, has surface Ab Possible BISHOP on CKD Associated with polyuria, one dose SQ dDAVP yesterday has ordered pituitary MRI to assess for posterior pituitary injury, patient refused continue choi, Anemia because of chronic disease, no sign of bleeding, globin stable, Possible multiple myeloma as possibility, CT 09/18 did not show any lytic lesions Hypertension, borderline diabetic, the new current care, h/o gastric ulcer, continue Protonix 40 mg p.o. daily Left shoulder pain , x-ray has no acute disease, has ordered heating pack, Nutritional support PT/OT eval and treat Subjective Complain about a lot of pain, in left knee, associated with cough and sputum, generalized weakness, Left shoulder still pain denied dizziness, Review of Systems Constitutional: Positive weakness, or fatigue Respiratory: A lot of cough with yellow sputum, denies wheezing, Cardiac: No chest pain, No orthopnea, Abdomen: No pain, No nausea, No vomiting, No diarrhea Musculoskeletal: Positive joint pain, No muscle pain, No swelling, No calf pain , No problem reported : Choi catheter in place , no dysuria, No urinary frequency, No incontinence , No hematuria Neurologic: No paralysis, No weakness, Psychiatric: No depression symptoms, Heme: No abnormal bleeding/bruising, No clotting problems, Skin: No rash, No itch, No new/changing skin lesions, No color change, No bleeding Physical Exam 2 Vital Signs (Past 24 Hours): Last Vital Signs Temp 36.9 C 09/27/18 15:00 Pulse 74 09/27/18 15:00 Resp 20 09/27/18 07:36 BP 166/83 H 09/27/18 15:00 Pulse Ox 98 09/27/18 15:00 Physical Exam: General: Looks frail, chronically ill looking, generalized weak, awake alert oriented x3, pleasant no acute distress. HEENT normocephalic atraumatic , mucous membranes mild dry. Cardio is regular , S1-S2, without rubs murmurs or gallops, lungs, has decreased breathing sound and show coarse rhonchi , occasional wheezing Abdomen is soft nondistended nontender no masses or organomegaly. Extremities: Left knee in dress, no cyanosis or clubbing , 1+ edema Skin shows no rashes, no pallor or icterus. No focal neuro deficits. Neuro: Cranial nerve II through XII is intact, no facial droop or slurry speeches or local weakness, muscle strength was 5 out of 5 Results & Data Laboratory Results Laboratory Results - last 24 hr 09/27/18 09/27/18 09/27/18 06:22 06:22 14:31 WBC 11.16 H RBC 2.77 L Hgb 8.1 L 8.3 L Hct 25.3 L 25.8 L MCV 91.3 MCH 29.2 MCHC 32.0 RDW Std Deviation 49.3 H RDW Coeff of Leatha 14.7 H Plt Count 353 MPV 8.5 Sodium 139 Potassium 4.4 Chloride 106 Carbon Dioxide 27 Anion Gap 6.0 BUN 27 H Creatinine 2.04 H Est Cr Clr Drug Dosing 50.5 Est GFR ( Amer) 41.0 Est GFR (Non-Af Amer) 35.4 BUN/Creatinine Ratio 13.2 Glucose 103 H Calcium 8.0 L Microbiology 09/20/18 Unknown Pleural Fluid Gram Stain - Final 09/20/18 Unknown Pleural Fluid Aerobic and Anaerobic Culture - Final No growth _ (1) Anemia Anemia type: unspecified type Iron deficiency anemia type: Vitamin B12 deficiency anemia type: Folate deficiency anemia type: Bone marrow failure anemia type: Hemolytic anemia type: Other causes of anemia: Chronic kidney disease stage: Qualified Code(s): D64.9 - Anemia, unspecified (2) Hypertension Hypertension type: essential hypertension Qualified Code(s): I10 - Essential (primary) hypertension (3) Pneumonia Aspiration pneumonia type: Laterality: right Lung location: unspecified part of lung Pneumonia type: due to unspecified organism Qualified Code(s): J18.9 - Pneumonia, unspecified organism (4) Septic arthritis Laterality: left Septic arthritis location: knee Septic arthritis organism: due to unspecified organism Qualified Code(s): M00.9 - Pyogenic arthritis, unspecified
--- NOTE | 2018-09-27 18:01 | Progress Note ---
DATE: 09/27/2018 SUBJECTIVE: Mr. Ramon was seen today on 09/27/2018. I talked about this case with radiology and Dr. Angel Camarena. Inserted a needle and aspirated some bloody material from this collection in the anterior-inferior aspect of the right pleural cavity. The patient had some coughing with some bloody sputum and this was concerning, but it did not appear to mean we had a major problem with this. I came and saw the patient a couple hours later and he really looked fine, back to baseline. His x-ray also was unchanged. ASSESSMENT AND PLAN: Right pleural and parenchymal process, right middle lobe and lower lobe. He has some significant lymphadenopathy. If the cytology and pathology results as well as culture results from what Dr. Camarena charlette off today does not grow anything, we may consider doing an endobronchial ultrasound and navigational bronchoscopy with biopsy.
[2018-09-27 18:46] LABS: HIV 1 RNA PCR Copies/ML <20 NOT DETECTED COPIES/mL (<20); HIV-1 RNA Log Copies/mL <1.30 NOT DETECTED (<1.30)
[2018-09-27] MEDS: LIDOCAINE 5% 1 PATCH TD SCH (20:30)
[2018-09-27] MEDS: ENOXAPARIN INJ 40 MG/0.4 ML SYR SQ SCH (20:31)
[2018-09-27] MEDS: LORazepam 1 MG TAB PO PRN (23:32)
--- NOTE | 2018-09-28 00:36 | Consultation Report ---
DATE OF CONSULTATION: 09/26/2018 REASON FOR CONSULTATION: Right lung abnormality. HISTORY OF PRESENT ILLNESS: This is a 58-year-old male with multiple issues. He has been hospitalized for the last 16 days. He has a history of morbid obesity, weighing 480 pounds at one time. He also has multiple other issues including alcohol abuse and heroin addiction. He has an infected left knee prosthesis which was removed at [facility] several weeks ago and he had an antibiotic spacer placed. He signed out against medical advice and he has been hospitalized here for 16 days. I carefully reviewed his films of this right lung process. He did not have anything in his chest at all on the CT scan from June. I was asked to evaluate this. He had a thoracentesis 6 days ago and 1100 mL of fluid was drained. He has an LDH of 108 with a total protein of 2.7. There were no organisms on the Gram stain and in fact a few white blood cells seen also. Nothing has grown yet in the AFB, fungal, or the aerobic and anaerobic cultures. In addition, he has not had a high white count. The patient underwent a bronchoscopy by Dr. Sanches 2 days ago and there was a large amount of fairly purulent secretion seen by Dr. Sanches. It did appear to be inflamed, of the origin of the right middle and right lower lobes. Interesting enough, there were bronchial crypts and clefts noted. The patient tolerated this well and these were all sent for microbiologic evaluation and to date nothing has grown. There were moderate white cells and no organisms seen. I have been asked to comment on this right lung lesion. PAST MEDICAL HISTORY: 1. IV drug use. 2. Alcoholic cirrhosis. 3. Acute lung injury. 4. Infected left knee prosthesis. 5. Hyperglycemia. 6. Hypertension. 7. Morbid obesity. 8. Septic arthritis. 9. Anemia. 10. Gastric ulcer. 11. History of alcohol abuse. 12. Proctitis. 13. History of delirium tremens. 14. Posttraumatic stress disorder. 15. Lumbar sprain. 16. Closed head injury in the past. 17. Melanotic stool. PAST SURGICAL HISTORY: 1. Gastric bypass at [facility] in [place]. 2. Bilateral knee replacements. 3. Right hip replacement. 4. History of foot surgery. 5. Herniorrhaphy. 6. Removal of left knee prosthesis with placement of an antibiotic spacer. FAMILY MEDICAL HISTORY: The patient has 10 children and 29 grandchildren and states they are all healthy. There is a history of diabetes and coronary artery disease. The patient has been twice. MEDICATIONS: 1. Lovenox. 2. Dilaudid as needed. 3. Insulin sliding scale. 4. Lactobacillus. 5. Lidocaine patch. 6. Lorazepam. 7. Methylprednisolone. 8. Lopressor. 9. Zofran p.r.n. 10. Oxycodone. 11. Zosyn. 12. Vancomycin. ALLERGIES: No known drug allergies. SOCIAL HISTORY: The patient is originally from [facility]. He attended [employer]. He states that he was learning disabled at that time. He has been smoking since his teens. 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 He smoked cigarettes. He states he has not used heroin intravenously for the last 4 or 5 months. He lives with his . He has several children and grandchildren in the [place] area. REVIEW OF SYSTEMS: The patient at his most weighed 480 pounds. He now weighs about 230 pounds. He does smoke cigarettes. He uses alcohol. He states he currently drinks up to 3 or 4 types of drinks and uses crack cocaine and heroin if he can get it. He states he has not smoked in some time but was a bit vague about when he quit. He has had some right-sided chest pain. He has apparently positive blood cultures at [facility] from strep pneumoniae, which may well have been from his lung. He has had no palpitations or other chest pressure. He has had no lightheadedness. He has had no fevers or chills or sweats. He has left knee pain and has a brace on around this antibiotic spacer now. He has been quite short of breath, has a productive cough. He continues to cough up purulent-appearing sputum. He has had some diarrhea and occasional vomiting with coughing. He has had no visual or auditory symptoms and has no skin breakdown. Neurologically, he denies any symptoms such as amaurosis fugax or transient ischemic attacks. PHYSICAL EXAMINATION: GENERAL: This is a 6 foot, 230-pound -Y[place]i male who is awake, alert, and oriented. HEENT: His sclerae are muddy, but anicteric. His pupils are equally round and reactive. He has no nasolabial flattening. Tongue is midline. He has no oral mucosal lesions. He really does not have any neck vein distention or thyromegaly. He has no lymphadenopathy in the supraclavicular, cervical, or axillary area. LUNGS: He does have decreased breath sounds bilaterally, worse on the right than the left. He has rhonchi, more on the right. HEART: He has a regular rate and rhythm of his heart without a rub. ABDOMEN: Obese, soft. He has no evidence of any hernias. He obviously has lost a great deal of weight. He has striae over his upper arms, chest, and his abdomen as well as his thighs. He complains of tenderness upon palpation of his abdomen, but it is soft and he has good bowel sounds. EXTREMITIES: Upon evaluating his lower extremities, he has a brace on his left leg protecting his knee antibiotic spacer. He has excellent peripheral pulses. No joint effusions. He has trace edema bilaterally in his pretibial areas. NEUROLOGIC: He has no asterixis. He has no obvious focal deficits. LABORATORY DATA: I reviewed his latest lab work and his white count is 8730 with a hemoglobin of 8.1. His BUN and creatinine are 22 and 2.07. Blood sugars have been fairly well controlled between [address] and [address] I reviewed his CT scan. I think he has some fluid despite the fact that he underwent a tap a few days ago. ASSESSMENT AND PLAN: I am more concerned about the anterior inferior aspect of the pleural cavity. While I see air bronchograms around this, I think he may have a cavity here. At this point, I want to continue to see how he does. He really does not appear to be an operative candidate with an albumin of 1.2, but he states he is getting better. I am going to ask interventional radiology about placing a pigtail catheter in this cavity tomorrow. SUSHIL
[2018-09-28] MEDS: DiphenhydrAMINE HCL 50 MG/ML VIAL IV PRN ×3 (02:58→20:03)
[2018-09-28] MEDS: HYDROmorphone INJ 1 MG/ML SYRINGE IV PRN ×6 (02:59→23:53)
[2018-09-28] MEDS: PIPERACILLIN/TAZOBACTAM 3.375 GM in DEXTROSE 5% 100 ML IV SCH ×3 (04:12→20:12)
[2018-09-28] MEDS: OXYCODONE HCL IR 5 MG TAB (IMMEDIATE RELEASE) PO PRN ×6 (05:48→23:00)
[2018-09-28] MEDS: INSULIN ASPART 100 UNITS/ML 3 ML PEN SC SCH ×4 (07:30→20:19)
[2018-09-28] MEDS: METOPROLOL TARTRATE 25 MG TAB PO SCH ×2 (07:32→20:15)
[2018-09-28] MEDS: LACTOBACILLUS ACIDOPHILUS (FLORANEX) TAB PO SCH ×4 (07:32→20:15)
[2018-09-28] MEDS: AMMONIUM LACTATE 12% LOTION 225 GM BTL EXT SCH ×2 (07:33→20:17)
[2018-09-28] MEDS: methylPREDNISolone 40 MG in SYRINGE 0 ML IV SCH ×2 (09:35→20:10)
[2018-09-28 10:18] LABS: Albumin Level 1.5 gm/dl (3.4-5.0); Creatinine Clr Calc Pharmacy 56.6 ml/min; Est GFR (African American) 47.1; Est GFR (Non-African American) 40.6; Potassium 3.7 mmol/L (3.5-5.1)
[2018-09-28 10:24] LABS: Albumin Globulin Ratio 0.3 (0.9-2); Bilirubin,Total 0.1 mg/dl (0.1-1); Globulin 5.7 gm/dl (2.5-4.0); Total Protein 7.2 gm/dl (6.4-8.2)
--- NOTE | 2018-09-28 11:07 | Nephrology Progress Note ---
Date of Service September 28, 2018 Assessment & Plan (1) BISHOP (acute kidney injury): -- BISHOP likely related to acute inflammation / underlying infection. Possible infection related GN. Creatinine has been relatively stable since admission (peak Cr ~ 2.0, baseline Cr ~ 0.9). Electrolyte balance is acceptable. -- 09/[address] reviewed: No obstruction -- Urinalysis 09/10: Negative for protein, blood related to Diop catheter -- 24 hour urine studies and UIEP are pending -- SIEP c/w chronic inflammatory pattern -- UIEP c/w glomerular and tubular proteinuria -- Monitor serial PRP (2) Polyuria: -- Patient refused MRI -- UOP improved -- Monitor I/O (3) Pneumonia: -- Bacterial cultures are NGTD -- Fungal and AFB cultures are pending (4) Septic arthritis: -- ID recommends 6 weeks empiric antibiotic therapy (5) Cirrhosis, alcoholic: (6) History of intravenous drug abuse: (7) PTSD (post-traumatic stress disorder): Subjective Mr. Ramon was seen & examined in his hospital room this morning. He currently denies dyspnea but still has productive cough. No fevers or chills. Denies pain. Review of Systems All systems reviewed & are unremarkable except as noted in HPI & below Physical Exam 2 Vital Signs (Past 24 Hours): Last Vital Signs Temp 36.9 C 09/28/18 07:38 Pulse 74 09/28/18 07:38 Resp 20 09/28/18 07:38 BP 162/88 H 09/28/18 07:38 Pulse Ox 98 09/27/18 22:56 Eyes: + anicteric sclerae and PERRL ENMT: external ear and nose normal, oropharynx normal Neck: trachea midline, no thyromegaly Respiratory: normal respiratory effort, lungs clear to auscultation Cardiovascular: Rate/Rhythm: regular rate and regular rhythm Extremities: + edema (trace pretibial pitting edema) Gastrointestinal (Abdomen): Inspection/Auscultation: abdomen normal to inspection Percussion/Palpation: abdomen soft; abdomen nontender Musculoskeletal: Extremities: no cyanosis and no clubbing Skin: no rashes, warm and dry Neurologic: Motor/Sensory: no tremor and no asterixis Psychiatric: Orientation: + guarded Apperance: + disheveled Affect: + labile affect Mood: + depressed mood and + anxious mood Results & Data Laboratory Results Laboratory Results - last 24 hr 09/23/18 09/27/18 09/27/18 12:02 14:31 16:54 Hgb 8.3 L Hct 25.8 L Sodium Potassium Chloride Carbon Dioxide Anion Gap BUN Creatinine Est Cr Clr Drug Dosing Est GFR ( Amer) Est GFR (Non-Af Amer) BUN/Creatinine Ratio Glucose POC Glucose 129 H Calcium Total Bilirubin AST ALT Alkaline Phosphatase Total Protein Albumin Globulin Albumin/Globulin Ratio HIV-1 RNA PCR copies/ml <20 NOT DETECTED HIV-1 RNA (PCR) log <1.30 NOT DETECTED TB Test (QFT) Nil Cancelled TB Test Mitogen - Nil Cancelled TB Test Antigen - Nil Cancelled TB Test (QFT) Cancelled Beta-(1,3)-D-Glucan 36 B-(1,3)-D-Glucan Intrp NEGATIVE 09/27/18 09/28/18 20:54 09:42 Hgb Hct Sodium 140 Potassium 3.7 D Chloride 107 Carbon Dioxide 25 Anion Gap 8.0 BUN 26 H Creatinine 1.82 H Est Cr Clr Drug Dosing 56.6 Est GFR ( Amer) 47.1 Est GFR (Non-Af Amer) 40.6 BUN/Creatinine Ratio 14.0 Glucose 118 H POC Glucose 143 H Calcium 8.0 L Total Bilirubin 0.1 AST 55 H ALT 50 Alkaline Phosphatase 88 Total Protein 7.2 Albumin 1.5 L Globulin 5.7 H Albumin/Globulin Ratio 0.3 L HIV-1 RNA PCR copies/ml HIV-1 RNA (PCR) log TB Test (QFT) Nil TB Test Mitogen - Nil TB Test Antigen - Nil TB Test (QFT) Beta-(1,3)-D-Glucan B-(1,3)-D-Glucan Intrp _ (1) Pneumonia Aspiration pneumonia type: Laterality: right Lung location: unspecified part of lung Pneumonia type: due to unspecified organism Qualified Code(s): J18.9 - Pneumonia, unspecified organism (2) Septic arthritis Laterality: left Septic arthritis location: knee Septic arthritis organism: due to unspecified organism Qualified Code(s): M00.9 - Pyogenic arthritis, unspecified
[2018-09-28] MEDS: OXYCODONE HCL 15 MG TABCR (OXYCONTIN) PO SCH ×2 (11:20→22:37)
--- NOTE | 2018-09-28 11:40 | Progress Note ---
DATE: 09/28/2018 Chart reviewed, patient examined. SUBJECTIVE: The patient is quite stable, but "not in a good mood." He has exhibited hemoptysis over the past 24 hours according to what he tells me as he is coughing up "large chunks of blood." The blood in his mouth has altered his taste and he is not enjoying his food. Yesterday, attempted CT-guided drainage produce 10 mL of bloody fluid, was sent for analysis. PHYSICAL EXAMINATION: VITAL SIGNS: Blood pressure 162/88, pulse 74 and regular, respiratory rate 20, temperature 36.9, O2 sat 98% on 1.5 L. SKIN: Without lesion. HEENT: Atraumatic, normocephalic. PERRLA. LUNGS: Coarse rales right base. With decreased breath sounds. CARDIAC: Regular rate and rhythm. No murmurs or gallops. ABDOMEN: Soft, scaphoid. EXTREMITIES: No significant pedal edema, clubbing, or cyanosis. MEDICATIONS: Currently, patient on IV vancomycin and Zosyn. LABORATORY DATA: BUN 26, creatinine 1.8, glucose 118. White count 11,000, H and H 8.3 and 25.8. OVERALL ASSESSMENT: A 58-year-old black male with progressive cavitary pneumonia, septic left knee, chronic obstructive pulmonary disease, past history of drug abuse with chronic anemia. At this point in time, I think patient will require navigational bronchoscopy with possible endobronchial ultrasound in the OR with intubation and control of the airway. Transbronchial biopsy or even open lung biopsy(VATS w bx) would be helpful and suspect it will show a necrotizing pneumonia with organization and the patient clearly has a loculated effusion that in my opinion would he require decortication as well. I think we have hit a plateau phase with this patient's clinical course and he will require instrumentation and more aggressive management with attempts at diagnosis as well. SUSHIL
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
--- NOTE | 2018-09-28 12:40 | Hospitalist Progress Note ---
Date of Service September 28, 2018 Assessment & Plan (1) Polyuria: (2) History of intravenous drug abuse: (3) Cirrhosis, alcoholic: (4) BISHOP (acute kidney injury): (5) Infection associated with internal left knee prosthesis: (6) Anemia: (7) Borderline diabetes: (8) Hypertension: (9) Pneumonia: (10) Septic arthritis: (11) Edema, peripheral: 58-year-old -[place] male with history of hypertension, former IV heroin and alcohol abuse and borderline diabetes presenting with knee pain was admitted on Sep 10 2018 , later found loculated right pleural effusion, Thoracic surgeon was consulted, Patient presented complaining of worsening left knee pain, was hospitalized at [facility] for over a month secondary to an infection of his left knee prosthesis (initially placed in 2007), hx of multiple revisions to his left knee. 4 days prior to this admission, the prosthesis was removed and replaced with an antibiotic spacer, left [facility] AMA due to the desire to be closer to family and home, was complaining of abdominal pain and distention as well as nausea, back pain, bowel incontinence and numbness of his legs that has been present since being admitted to [facility]. He was found has pneumonia, had a bronchoscopy done, Possible necrotizing pneumonia/empyema, Seems a more dark blood sputum after CT- guided biopsy, possible strep pneumonia with cavitary process, suspect a lung abscess. CT chest 09/18 shows cavitations in right lower lobe, consistent with necrotizing pneumonia Bronchoscopy done, cultures are pending repeat chest x-ray continues to show areas of consolidation, loculated right pleural effusion, cannot rule out empyema Dr. Sinclair has ordered CT-guided biopsy, continue on Vancomycin and Zosyn for now Discussed with efficiency expert and infectious disease, because the patient does not have any overt valvulopathy in TTE, he need long duration of antibiotics, KIARA would not change treatment. pulm also feel patient may need more aggressive diagnostic procedure, r possible septic emboli given his septic joint and bacteremia at [facility] blood cultures are negative his hospital there was a report of him having a Strep pneumoniae positive blood culture at [facility] Ongoing antibiotics per ID recommendations, cont 6+ weeks of IV ABx, Septic arthritis: Consulted orthopedic surgery-greatly appreciate assistance Empiric antibiotic coverage with vancomycin and Zosyn Consulted Infectious disease, stitches in left knee were removed Back pain, left shoulder pain, continue pain control: on Oxycontin 15mg BID, Oxycodone 10mg q4 PRN, Dilaudid for breakthrough patient will need to follow up at [facility] for repeat TKA once spacer in place for 6 weeks and completed 6 weeks of IV antibiotics for the time being. his TKA would be put on hold until necrotizing pneumonia adequately treated and patient is stronger Cirrhosis, alcoholic, hepatitis C preliminary positive, HIV pending, hepatitis B negative, has surface Ab Possible BISHOP on CKD Associated with polyuria, one dose SQ dDAVP 2 Days ago, has ordered pituitary MRI to assess for posterior pituitary injury, patient refused continue choi, Anemia because of chronic disease, no sign of bleeding, globin stable, Possible multiple myeloma as possibility, CT 09/18 did not show any lytic lesions Hypertension, borderline diabetic, the new current care, h/o gastric ulcer, continue Protonix 40 mg p.o. daily Left shoulder pain , x-ray has no acute disease, has ordered heating pack, Nutritional support Encourage patient out of bed to the chair encourage PT/OT eval and treat Subjective Report coughing back bloody sputum,[address] biopsy, Report a lot of pain in left knee, however seems motivated to be out of bed to the chair,And involved with PT OT, generalized weakness, Left shoulderno l pain denied dizziness, No fever chill, Review of Systems Constitutional: Positive weakness, or fatigue Respiratory: HPI,denies wheezing, Cardiac: No chest pain, No orthopnea, Abdomen: No pain, No nausea, No vomiting, No diarrhea Musculoskeletal: Positive joint pain, In left knee,No muscle pain, No swelling, No calf pain, No problem reported : Choi catheter in place , no dysuria, No urinary frequency, No incontinence , No hematuria Neurologic: No paralysis, No weakness, Psychiatric: No depression symptoms, Heme: No abnormal bleeding/bruising, No clotting problems, Skin: No rash, No itch, No new/changing skin lesions, No color change, No bleeding Physical Exam 2 Vital Signs (Past 24 Hours): Last Vital Signs Temp 36.9 C 09/28/18 07:38 Pulse 74 09/28/18 07:38 Resp 20 09/28/18 07:38 BP 162/88 H 09/28/18 07:38 Pulse Ox 98 09/27/18 22:56 Physical Exam: General: chronically ill looking,weak, frail, awake alert oriented x3, HEENT normocephalic atraumatic , mucous membranes mild dry. Cardio is regular , S1-S2, without rubs murmurs or gallops, lungs, has decreased breathing sound and show coarse rhonchi , occasional wheezing Abdomen is soft nondistended nontender no masses or organomegaly. Extremities: Left knee in dress, no cyanosis or clubbing , 1+ edema, Left knee in dress, Skin shows no rashes, no pallor or icterus. No focal neuro deficits. Neuro: Cranial nerve II through XII is intact, no facial droop or slurry speeches or local weakness, muscle strength was 5 out of 5 Results & Data Laboratory Results Laboratory Results - last 24 hr 09/23/18 09/27/18 09/27/18 12:02 14:31 16:54 Hgb 8.3 L Hct 25.8 L Sodium Potassium Chloride Carbon Dioxide Anion Gap BUN Creatinine Est Cr Clr Drug Dosing Est GFR ( Amer) Est GFR (Non-Af Amer) BUN/Creatinine Ratio Glucose POC Glucose 129 H Calcium Total Bilirubin AST ALT Alkaline Phosphatase Total Protein Albumin Globulin Albumin/Globulin Ratio HIV-1 RNA PCR copies/ml <20 NOT DETECTED HIV-1 RNA (PCR) log <1.30 NOT DETECTED TB Test (QFT) Nil Cancelled TB Test Mitogen - Nil Cancelled TB Test Antigen - Nil Cancelled TB Test (QFT) Cancelled Beta-(1,3)-D-Glucan 36 B-(1,3)-D-Glucan Intrp NEGATIVE 09/27/18 09/28/18 09/28/18 20:54 09:42 11:38 Hgb Hct Sodium 140 Potassium 3.7 D Chloride 107 Carbon Dioxide 25 Anion Gap 8.0 BUN 26 H Creatinine 1.82 H Est Cr Clr Drug Dosing 56.6 Est GFR ( Amer) 47.1 Est GFR (Non-Af Amer) 40.6 BUN/Creatinine Ratio 14.0 Glucose 118 H POC Glucose 143 H 297 H Calcium 8.0 L Total Bilirubin 0.1 AST 55 H ALT 50 Alkaline Phosphatase 88 Total Protein 7.2 Albumin 1.5 L Globulin 5.7 H Albumin/Globulin Ratio 0.3 L HIV-1 RNA PCR copies/ml HIV-1 RNA (PCR) log TB Test (QFT) Nil TB Test Mitogen - Nil TB Test Antigen - Nil TB Test (QFT) Beta-(1,3)-D-Glucan B-(1,3)-D-Glucan Intrp Microbiology 09/27/18 11:45 Lung,Right Gram Stain - Final 09/27/18 11:45 Lung,Right Aerobic and Anaerobic Culture - Preliminary No growth to date. 09/27/18 11:45 Lung,Right Fungal Smear - Final _ (1) Anemia Anemia type: unspecified type Iron deficiency anemia type: Vitamin B12 deficiency anemia type: Folate deficiency anemia type: Bone marrow failure anemia type: Hemolytic anemia type: Other causes of anemia: Chronic kidney disease stage: Qualified Code(s): D64.9 - Anemia, unspecified (2) Hypertension Hypertension type: essential hypertension Qualified Code(s): I10 - Essential (primary) hypertension (3) Pneumonia Aspiration pneumonia type: Laterality: right Lung location: unspecified part of lung Pneumonia type: due to unspecified organism Qualified Code(s): J18.9 - Pneumonia, unspecified organism (4) Septic arthritis Laterality: left Septic arthritis location: knee Septic arthritis organism: due to unspecified organism Qualified Code(s): M00.9 - Pyogenic arthritis, unspecified
[2018-09-28] MEDS: VANCOMYCIN HCL 1,000 MG in SODIUM CHLORIDE 0.9% 250 ML IV SCH (14:31)
[2018-09-28] MEDS: ENOXAPARIN INJ 40 MG/0.4 ML SYR SQ SCH (20:10)
[2018-09-28] MEDS: LIDOCAINE 5% 1 PATCH TD SCH (20:16)
[2018-09-28] MEDS: LORazepam 1 MG TAB PO PRN (22:37)
[2018-09-29] MEDS: DiphenhydrAMINE HCL 50 MG/ML VIAL IV PRN ×4 (02:39→20:29)
[2018-09-29] MEDS: OXYCODONE HCL IR 5 MG TAB (IMMEDIATE RELEASE) PO PRN ×5 (02:39→23:48)
[2018-09-29] MEDS: HYDROmorphone INJ 1 MG/ML SYRINGE IV PRN ×5 (03:56→20:13)
[2018-09-29] MEDS: PIPERACILLIN/TAZOBACTAM 3.375 GM in DEXTROSE 5% 100 ML IV SCH ×3 (04:15→20:12)
[2018-09-29 07:06] LABS: BUN Creatinine Ratio 15.6 (10-20); Calcium 8.1 mg/dl (8.5-10.1); Creatinine Clr Calc Pharmacy 60.6 ml/min; Est GFR (African American) 51.1; Est GFR (Non-African American) 44.1; Potassium 4.2 mmol/L (3.5-5.1)
[2018-09-29] MEDS: INSULIN ASPART 100 UNITS/ML 3 ML PEN SC SCH ×4 (08:03→20:41)
[2018-09-29] MEDS: AMMONIUM LACTATE 12% LOTION 225 GM BTL EXT SCH ×2 (08:08→20:38)
[2018-09-29] MEDS: LACTOBACILLUS ACIDOPHILUS (FLORANEX) TAB PO SCH ×4 (08:09→20:37)
[2018-09-29] MEDS: METOPROLOL TARTRATE 25 MG TAB PO SCH ×2 (08:09→20:39)
[2018-09-29] MEDS: methylPREDNISolone 40 MG in SYRINGE 0 ML IV SCH ×2 (08:18→21:44)
--- NOTE | 2018-09-29 10:36 | Nephrology Progress Note ---
Date of Service September 29, 2018 Assessment & Plan (1) BISHOP (acute kidney injury): -- BISHOP likely related to acute inflammation / underlying infection. Clinically consistent with ATN and less likely infection related GN. Creatinine improved to 1.7 mg/dL this morning (baseline Cr ~ 0.9). -- Electrolyte balance is acceptable. -- 09/[address] reviewed: No obstruction -- Urinalysis 09/10: Negative for protein, blood related to Diop catheter -- 24 hour UPEP demonstrated mixed glomerular and tubular proteinuria. No monoclonal abnormality appreciated. Microscopic hematuria persists and will require outpatient follow up. -- SIEP c/w chronic inflammatory pattern -- Monitor serial PRP (2) Polyuria: -- Patient refused MRI -- UOP improved -- Monitor I/O (3) Pneumonia: -- Bacterial cultures are NGTD -- Fungal and AFB cultures are pending -- Bronch planned for tomorrow (4) Septic arthritis: -- ID recommends 6 weeks empiric antibiotic therapy (5) Cirrhosis, alcoholic: (6) History of intravenous drug abuse: (7) PTSD (post-traumatic stress disorder): Subjective Mr. Ramon was seen & examined in his hospital room this morning. He currently denies dyspnea but still has productive cough. No fevers or chills. Denies pain. Plan of care discussed with Dr. Sinclair this morning. Review of Systems All systems reviewed & are unremarkable except as noted in HPI & below Physical Exam 2 Vital Signs (Past 24 Hours): Last Vital Signs Temp 36.8 C 09/29/18 07:25 Pulse 78 09/29/18 07:25 Resp 20 09/29/18 07:25 BP 144/84 H 09/29/18 07:25 Pulse Ox 97 09/29/18 07:25 Constitutional: well developed; no acute distress Eyes: + anicteric sclerae and PERRL ENMT: external ear and nose normal, oropharynx normal Neck: trachea midline, no thyromegaly Respiratory: normal respiratory effort, lungs clear to auscultation Cardiovascular: Rate/Rhythm: regular rate and regular rhythm Extremities: + edema (trace pretibial pitting edema) Gastrointestinal (Abdomen): Inspection/Auscultation: abdomen normal to inspection Percussion/Palpation: abdomen soft; abdomen nontender Musculoskeletal: Extremities: no cyanosis and no clubbing Skin: no rashes, warm and dry Neurologic: Motor/Sensory: no tremor and no asterixis Psychiatric: A+Ox3, euthymic affect _ (1) Pneumonia Aspiration pneumonia type: Laterality: right Lung location: unspecified part of lung Pneumonia type: due to unspecified organism Qualified Code(s): J18.9 - Pneumonia, unspecified organism (2) Septic arthritis Laterality: left Septic arthritis location: knee Septic arthritis organism: due to unspecified organism Qualified Code(s): M00.9 - Pyogenic arthritis, unspecified
[2018-09-29] MEDS: OXYCODONE HCL 15 MG TABCR (OXYCONTIN) PO SCH ×2 (10:37→22:21)
--- NOTE | 2018-09-29 11:00 | Progress Note ---
DATE: 09/29/2018 Mr. Wolfe was seen today sitting up eating breakfast. He is on room air with good saturations. His BUN and creatinine have improved with his creatinine dropping to 1.7, which is probably baseline for him. His BUN is also stable at 27. He is taking p.o. well. Upon auscultation, he does have decreased breath sounds with some rhonchi on the right. We had a long talk about it. I do not think this is an empyema. I do not believe this represents a neoplasm. I think he may have either septic emboli with infarctions or pulmonary infarctions. We are going to take him to the operating room tomorrow, and under general anesthesia, do an endobronchial ultrasound with a bronchoscopy. I explained the risks and benefits. He understands. Will proceed tomorrow.
--- NOTE | 2018-09-29 12:16 | Hospitalist Progress Note ---
Date of Service September 29, 2018 Assessment & Plan (1) Polyuria: (2) History of intravenous drug abuse: (3) Cirrhosis, alcoholic: (4) BISHOP (acute kidney injury): (5) Infection associated with internal left knee prosthesis: (6) Anemia: (7) Borderline diabetes: (8) Hypertension: (9) Pneumonia: (10) Septic arthritis: (11) Edema, peripheral: 58-year-old -[place] male with history of hypertension, former IV heroin and alcohol abuse and borderline diabetes presenting with knee pain was admitted on Sep 10 2018 , later found loculated right pleural effusion, Thoracic surgeon was consulted, Patient presented complaining of worsening left knee pain, was hospitalized at [facility] for over a month secondary to an infection of his left knee prosthesis (initially placed in 2007), hx of multiple revisions to his left knee. 4 days prior to this admission, the prosthesis was removed and replaced with an antibiotic spacer, left [facility] AMA due to the desire to be closer to family and home, was complaining of abdominal pain and distention as well as nausea, back pain, bowel incontinence and numbness of his legs that has been present since being admitted to [facility]. He was found has pneumonia, had a bronchoscopy done, Possible necrotizing pneumonia/empyema, Seems a more dark blood sputum after CT- guided biopsy, the amount is not better than yesterday, however not getting worse possible strep pneumonia with cavitary process, suspect a lung abscess. CT chest 09/18 shows cavitations in right lower lobe, consistent with necrotizing pneumonia Bronchoscopy done, cultures are pending repeat chest x-ray continues to show areas of consolidation, loculated right pleural effusion, cannot rule out empyema continue on Vancomycin and Zosyn for now Discussed with eeo officer and infectious disease, because the patient does not have any overt valvulopathy in TTE, he need long duration of antibiotics, KIARA would not change treatment. Thoracic surgeon plans to endobronchial ultrasound with a bronchoscopy tomorrow possible septic emboli given his septic joint and bacteremia at [facility] blood cultures are negative his hospital there was a report of him having a Strep pneumoniae positive blood culture at [facility] Ongoing antibiotics per ID recommendations, cont 6+ weeks of IV ABx, Septic arthritis: Consulted orthopedic surgery-greatly appreciate assistance Empiric antibiotic coverage with vancomycin and Zosyn Consulted Infectious disease, stitches in left knee were removed Back pain, left shoulder pain, continue pain control: on Oxycontin 15mg BID, Oxycodone 10mg q4 PRN, Dilaudid for breakthrough patient will need to follow up at [facility] for repeat TKA once spacer in place for 6 weeks and completed 6 weeks of IV antibiotics for the time being. his TKA would be put on hold until necrotizing pneumonia adequately treated and patient is stronger Cirrhosis, alcoholic, hepatitis C preliminary positive, hepatitis B negative, has surface Ab Possible BISHOP on CKD , continue improving Associated with polyuria, one dose SQ dDAVP 3 Days ago, has ordered pituitary MRI to assess for posterior pituitary injury, patient refused continue choi, Anemia because of chronic disease, no sign of bleeding, globin stable, Possible multiple myeloma as possibility, CT 09/18 did not show any lytic lesions Hypertension, borderline diabetic, the new current care, h/o gastric ulcer, continue Protonix 40 mg p.o. daily Left shoulder pain , x-ray has no acute disease, has ordered heating pack, Nutritional support Encourage patient to continue out of bed to the chair encourage PT/OT eval and treat Subjective Generally feeling better, was out of bed to chair with help for couple hours, was doing physical therapy and up to bedside commode yesterday Continue coughing back bloody sputum, this has been started after lung CT biopsy, which was 3 days ago Report a lot of pain in left knee, generalized weakness, Left shoulder no more pain denied dizziness, No fever chill, Review of Systems Constitutional: Positive weakness, or fatigue Respiratory: HPI,denies wheezing, Cardiac: No chest pain, No orthopnea, Abdomen: No pain, No nausea, No vomiting, No diarrhea Musculoskeletal: Positive joint pain, In left knee,No muscle pain, No swelling, No calf pain, No problem reported : Choi catheter in place , no dysuria, No urinary frequency, No incontinence , No hematuria Neurologic: No paralysis, No weakness, Psychiatric: No depression symptoms, Heme: No abnormal bleeding/bruising, No clotting problems, Skin: No rash, No itch, No new/changing skin lesions, No color change, No bleeding Physical Exam 2 Vital Signs (Past 24 Hours): Last Vital Signs Temp 36.8 C 09/29/18 07:25 Pulse 78 09/29/18 07:25 Resp 20 09/29/18 07:25 BP 144/84 H 09/29/18 07:25 Pulse Ox 97 09/29/18 07:25 Physical Exam: General: Looks better, chronically ill looking, generalized weak, awake alert oriented x3, pleasant no acute distress. HEENT normocephalic atraumatic , mucous membranes mild dry. Cardio is regular , S1-S2, without rubs murmurs or gallops, lungs, has decreased breathing sound and show coarse rhonchi , occasional wheezing Abdomen is soft nondistended nontender no masses or organomegaly. Extremities: Left knee in dress, no cyanosis or clubbing , 1+ edema Skin shows no rashes, no pallor or icterus. No focal neuro deficits. Neuro: Cranial nerve II through XII is intact, no facial droop or slurry speeches or local weakness, muscle strength was 5 out of 5 Results & Data Laboratory Results Laboratory Results - last 24 hr 09/28/18 09/28/18 09/29/18 16:13 16:36 06:12 Sodium 140 Potassium 4.2 Chloride 107 Carbon Dioxide 26 Anion Gap 7.0 BUN 27 H Creatinine 1.70 H Est Cr Clr Drug Dosing 60.6 Est GFR ( Amer) 51.1 Est GFR (Non-Af Amer) 44.1 BUN/Creatinine Ratio 15.6 Glucose 104 H POC Glucose 216 H 138 H Calcium 8.1 L 09/29/18 09/29/18 08:00 12:04 Sodium Potassium Chloride Carbon Dioxide Anion Gap BUN Creatinine Est Cr Clr Drug Dosing Est GFR ( Amer) Est GFR (Non-Af Amer) BUN/Creatinine Ratio Glucose POC Glucose 96 140 H Calcium Microbiology 09/27/18 11:45 Lung,Right Acid Fast Bacilli Smear - Final 09/27/18 11:45 Lung,Right Gram Stain - Final 09/27/18 11:45 Lung,Right Aerobic and Anaerobic Culture - Preliminary No growth to date. 09/27/18 11:45 Lung,Right Fungal Smear - Final 09/27/18 11:45 Lung,Right Fungal Culture - Preliminary No yeast or fungus isolated - Report 1, Additional Report to Follow. _ (1) Anemia Anemia type: unspecified type Bone marrow failure anemia type: Chronic kidney disease stage: Folate deficiency anemia type: Hemolytic anemia type: Iron deficiency anemia type: Other causes of anemia: Vitamin B12 deficiency anemia type: Qualified Code(s): D64.9 - Anemia, unspecified (2) Septic arthritis Laterality: left Septic arthritis location: knee Septic arthritis organism: due to unspecified organism Qualified Code(s): M00.9 - Pyogenic arthritis, unspecified (3) Hypertension Hypertension type: essential hypertension Qualified Code(s): I10 - Essential (primary) hypertension (4) Pneumonia Aspiration pneumonia type: Laterality: right Lung location: unspecified part of lung Pneumonia type: due to unspecified organism Qualified Code(s): J18.9 - Pneumonia, unspecified organism
[2018-09-29] MEDS ORDERED: VANCOMYCIN TROUGH ONE (13:30)
[2018-09-29] MEDS: VANCOMYCIN HCL 1,000 MG in SODIUM CHLORIDE 0.9% 250 ML IV SCH (13:41)
--- NOTE | 2018-09-29 14:10 | Pharmacy Report ---
Pharmacy Abx Dose Short Note - Date of Service September 29, 2018 - Assessment & Plan Assessment 58 year old M receiving vancomycin + Zosyn for treatment of progressive cavitary pneumonia and septic arthritis. ID following and recommends at least 6 weeks of therapy. Patient currently on day # 20 of antimicrobial therapy. SCr has actually started to improve so I ordered a trough for today, expecting it to be on the low side. Plan Vancomycin * Trough level of 17.8 mcg/mL is therapeutic * Continue dose of 1000 mg IV every 24 hours * Goal trough level : 15 to 20 mcg/mL * Trough level can be rechecked in another 5 days, or sooner if renal function continues to improve Pharmacy will continue to follow and will adjust dose/frequency as necessary. Thank you.
[2018-09-29] MEDS: LIDOCAINE 5% 1 PATCH TD SCH (20:38)
[2018-09-29] MEDS: ENOXAPARIN INJ 40 MG/0.4 ML SYR SQ SCH (20:39)
[2018-09-29] MEDS: LORazepam 1 MG TAB PO PRN (23:55)
[2018-09-30] MEDS: HYDROmorphone INJ 1 MG/ML SYRINGE IV PRN ×6 (00:19→23:48)
[2018-09-30] MEDS: DiphenhydrAMINE HCL 50 MG/ML VIAL IV PRN ×4 (03:46→23:48)
[2018-09-30] MEDS: PIPERACILLIN/TAZOBACTAM 3.375 GM in DEXTROSE 5% 100 ML IV SCH ×3 (03:46→20:11)
[2018-09-30 07:34] LABS: BUN Creatinine Ratio 17.8 (10-20); Calcium 7.9 mg/dl (8.5-10.1); Creatinine Clr Calc Pharmacy 60.9 ml/min; Est GFR (African American) 51.5; Est GFR (Non-African American) 44.4; Potassium 4.4 mmol/L (3.5-5.1)
--- NOTE | 2018-09-30 07:45 | Anesthesiology Consultation ---
Date of Service September 30, 2018 Assessment & Plan (1) Encounter for pre-operative examination: Chart Review Chart Review: Acceptable Risk for Surgery NPO Date Last Intake of Fluids: 09/30/18 Time Last Intake of Fluids: 00:00 Date Last Intake of Solids: 09/30/18 Time Last Intake of Solids: 00:00 History Surgery Operation Date: 09/24/18 10:00 Proposed Procedures p Bronchoscopy(Bilateral) - Francois Sanches MD Operation Date: 09/30/18 07:30 Proposed Procedures p Endobronchial Ultrasound - Gilberto Sinclair MD, FACS Height/Weight Height: 6 ft Weight: 104.3 kg Allergies Allergy/AdvReac Type Severity Reaction Status Date / Time No Known Allergies Allergy Verified 09/10/18 06:28 Medications Home Medications Medication Instructions Recorded Confirmed Last Taken Unobtainable 09/10/18 09/10/18 Unknown Active Medications Generic Name Dose Route Start Last Admin Trade Name Freq PRN Reason Stop Dose Admin Acetaminophen 650 mg 09/10/18 18:43 09/15/18 00:08 Tylenol PO 10/10/18 18:42 650 mg Q4H PRN Administration pain/fever Diphenhydramine HCl 25 mg 09/22/18 21:09 09/30/18 03:46 Benadryl IV 10/22/18 21:08 50 mg Q6 PRN Administration Itching Enoxaparin Sodium 40 mg 09/10/18 21:00 09/29/18 20:39 Lovenox SQ 10/10/18 20:59 40 mg PM JERSON Administration Hydromorphone HCl 1 mg 09/21/18 11:00 09/30/18 03:47 Dilaudid IV 10/05/18 10:59 1 mg Q4H PRN Administration Severe Pain Piperacillin Sod/Tazobactam 115 mls @ 28.75 mls/hr 09/11/18 04:00 09/30/18 03 :46 Sod 3.375 gm/ Dextrose IV 10/22/18 19:59 28.8 mls/hr Q8H JERSON Administration Protocol Vancomycin HCl 1,000 mg/ 270 mls @ 125 mls/hr 09/17/18 14:00 09/29/18 15:54 Sodium Chloride IV 10/29/18 13:59 Infused DAILY@1400 JERSON Infusion Methylprednisolone 40 mg/ 0.64 mls @ 1.5 mls/min 09/25/18 21:00 09/29/18 21: 44 Syringe IV 10/25/18 20:59 1.5 mls/min BID JERSON Administration Insulin Aspart 0 units 09/15/18 11:30 09/29/18 20:41 Novolog Flexpen SC 10/15/18 11:29 Not Given ACHS JERSON Lactic Acid 1 gm 09/16/18 21:00 09/29/18 20:38 Amlactin EXT 10/16/18 20:59 1 gm BID JERSON Administration Lactobacillus Acidophilus 4 tab 09/12/18 17:00 09/29/18 20:37 Floranex PO 10/12/18 16:59 4 tab QIDM JERSON Administration Lidocaine 2 patch 09/11/18 22:00 09/29/18 20:38 Lidoderm 5% TD 10/11/18 21:59 Not Given HS JERSON Lorazepam 1 mg 09/13/18 19:01 09/29/18 23:55 Ativan PO 10/13/18 19:00 1 mg HS PRN Administration Insomnia Metoprolol Tartrate 12.5 mg 09/26/18 09:00 09/29/18 20:39 Lopressor PO 10/26/18 08:59 12.5 mg BID JERSON Administration Miscellaneous 2 ea 09/12/18 09:00 09/29/18 08:04 Remove Lidoderm Patch N/A 10/12/18 08:59 Not Given QAM JERSON Miscellaneous 15 - 30 gm 09/15/18 11:09 09/15/18 16:24 Carbohydrates For Hypoglycemia PO 10/15/18 11:08 15 gm UD PRN Administration Hypoglycemia Treatment Miscellaneous Information 1 ea 09/10/18 18:43 09/28/18 14:31 Consult N/A 10/10/18 18:42 1 ea UD PRN Administration Consult Ondansetron HCl 4 mg 09/10/18 18:43 09/13/18 08:37 Zofran IV 10/10/18 18:42 4 mg Q6H PRN Administration Nausea Oxycodone HCl 10 mg 09/17/18 12:54 09/29/18 23:48 Roxicodone Immediate Rel PO 10/01/18 12:53 10 mg Q4 PRN Administration Pain Oxycodone HCl 15 mg 09/21/18 11:00 09/29/18 22:21 Oxycontin PO 10/05/18 10:59 15 mg Q12H JERSON Administration Past Medical History Medical History PTSD (post-traumatic stress disorder) (Chronic) Heroin overdose (Chronic) Anemia Borderline diabetes CKD (chronic kidney disease) Cavitary lesion of lung Cirrhosis High blood pressure Past Family History Family History Other Diabetes Heart disease Past Surgical History Surgical History History of gastric bypass History of hernia repair Hx of foot surgery Status post left knee replacement With multiple revisions. Presently with antibiotic spacer in place Social History Smoking Status: Former smoker tobacco type: cigarettes Hx Alcohol Use: Yes alcohol intake frequency: 3 or more drinks per day Hx Substance Use: Yes substance use type: crack/cocaine and heroin Physical Exam Vital Signs Last Vital Signs Temp 36.6 C 09/30/18 07:00 Pulse 62 09/30/18 07:00 Resp 18 09/30/18 07:00 BP 162/89 H 09/30/18 07:00 Pulse Ox 98 09/30/18 07:00 Testing Electrocardiogram Date: 09/10/18 Findings: + NSR @ (85) Echocardiogram Date: 09/24/18 LV Function: normal Valvular Disease: + no significant valvular disease Laboratory Results 09/27/18 14:31 09/30/18 06:43 Blood Type O Positive 09/10/18 19:29 Antibody Screen NEGATIVE 09/10/18 19:29 PT 11.0 Seconds (9.0-12.0) 09/10/18 07:19 INR 1.0 (0.9-1.1) 09/10/18 07:19 APTT 32.2 Seconds (21.0-31.0) H 09/10/18 07:19 Hemoglobin A1c 5.6 % (4.5-5.6) 09/11/18 05:30 Urine Color Yellow 09/22/18 15:15 Urine Appearance Clear (Clear) 09/22/18 15:15 Urine pH 5.5 (4.5-7.5) 09/22/18 15:15 Ur Specific Sims 1.010 (1.000-1.030) 09/22/18 15:15 Urine Protein Negative (Negative) 09/22/18 15:15 Urine Glucose (UA) Negative (Negative) 09/22/18 15:15 Urine Ketones Negative (Negative) 09/22/18 15:15 Urine Nitrite Negative (Negative) 09/22/18 15:15 Ur Leukocyte Esterase Trace (Negative) H 09/22/18 15:15 Urine WBC (Auto) 1-5 /hpf (0-5) 09/22/18 15:15 Urine RBC (Auto) >30 /hpf (0-4) H 09/22/18 15:15 U Hyaline Cast (Auto) 1-5 /lpf (0-5) 09/22/18 15:15 U Epithel Cells (Auto) 10-20 /lpf (0-5) H 09/22/18 15:15 Urine Bacteria (Auto) Negative (Negative) 09/22/18 15:15 09/24/18 10:08 Fungal Smear - Final Bronch Wash,Right Middle Lobe Fungal Culture - Preliminary Katerina albicans 09/27/18 11:45 Gram Stain - Final Lung,Right Aerobic and Anaerobic Culture - Preliminary No growth to date. 09/24/18 10:08 Acid Fast Bacilli Smear - Final Bronch Wash,Right Middle Lobe Acid Fast Bacilli Culture - Preliminary No Acid-Fast Bacilli Isolated - Report 1, Additional Report to Follow. 09/27/18 11:45 Acid Fast Bacilli Smear - Final Lung,Right 09/27/18 11:45 Fungal Smear - Final Lung,Right Fungal Culture - Preliminary No yeast or fungus isolated - Report 1, Additional Report to Follow. 09/20/18 Unknown Gram Stain - Final Pleural Fluid Aerobic and Anaerobic Culture - Final No growth 09/24/18 12:36 Gram Stain - Final Sputum, Expectorated Sputum Culture - Final Light normal xiomara. 09/24/18 10:08 Gram Stain - Final Bronch Wash,Right Middle Lobe Bronchoalveolar Lavage Culture - Final Scant normal xiomara. 09/23/18 12:11 Cryptococcal Antigen - Final Blood 09/10/18 07:19 Blood Culture - Final Blood No growth 09/10/18 07:10 Blood Culture - Final Blood No growth 09/13/18 12:17 Gram Stain - Final Sputum, Expectorated Sputum Culture - Final Light normal xiomara. 09/10/18 07:53 Urine Culture - Final Urine,Straight Cath No growth - less than 1,000 colonies/mL. 09/29/18 19:56 POC Glucose 137 H
[2018-09-30] MEDS ORDERED: ATROPINE SULFATE 0.1 MG/ML 5ML SYR IV PRN (07:47)
[2018-09-30] MEDS ORDERED: LABETALOL HCL IV 5 MG/ML 20ML IV PRN (07:47)
[2018-09-30] MEDS ORDERED: ONDANSETRON INJ 2 MG/ML 2 ML VIAL IV PRN (07:47)
[2018-09-30] MEDS: LACTOBACILLUS ACIDOPHILUS (FLORANEX) TAB PO SCH ×4 (07:53→21:33)
[2018-09-30] MEDS: METOPROLOL TARTRATE 25 MG TAB PO SCH ×2 (07:53→21:32)
[2018-09-30] MEDS: INSULIN ASPART 100 UNITS/ML 3 ML PEN SC SCH ×4 (07:53→21:55)
[2018-09-30] MEDS: AMMONIUM LACTATE 12% LOTION 225 GM BTL EXT SCH ×2 (07:53→21:34)
[2018-09-30] MEDS: methylPREDNISolone 40 MG in SYRINGE 0 ML IV SCH ×2 (07:53→21:31)
[2018-09-30] MEDS ORDERED: fentaNYL citrate 100 MCG/2 ML VIAL ONE (07:55)
[2018-09-30] MEDS ORDERED: GLYCOPYRROLATE 0.2 MG/ML VIAL ONE (07:55)
[2018-09-30] MEDS ORDERED: DEXAMETHASONE SOD INJ 4 MG/ML VIAL ONE (07:55)
[2018-09-30] MEDS ORDERED: NEOSTIGMINE METHYLSULFATE 5 MG/5 ML SYR ONE (07:55)
[2018-09-30] MEDS ORDERED: ePHEDrine sulfate 50 MG/ML AMP ONE (07:55)
[2018-09-30] MEDS ORDERED: PHENYLEPHRINE HCL 10 MG/ML VIAL ONE (07:55)
[2018-09-30] MEDS ORDERED: MIDAZOLAM HCL 1 MG/ML 2ML VIAL ONE (07:55)
[2018-09-30] MEDS ORDERED: SUCCINYLCHOLINE CHLORIDE 20 MG/ML 10 ML VIAL ONE (07:55)
[2018-09-30] MEDS ORDERED: LIDOCAINE HCL 2% 2 ML VIAL/AMP(20MG/ML) INFIL ONE (07:55)
[2018-09-30] MEDS ORDERED: PROPOFOL IV EMULSION 10 MG/ML 20 ML VIAL IV ONE (07:55)
[2018-09-30] MEDS ORDERED: ONDANSETRON INJ 2 MG/ML 2 ML VIAL ONE (07:55)
--- NOTE | 2018-09-30 08:09 | History & Physical Bridge Note ---
Date of Service September 30, 2018 History & Physical Bridge Note I have examined the patient, reviewed the History & Physical and in the interval since the performance of the History & Physical I have noted the following changes of clinical significance: no changes noted
[2018-09-30] MEDS ORDERED: LACTATED RINGER'S 1,000 ML IV SCH (08:30)
--- NOTE | 2018-09-30 09:44 | Post Operative Brief Note ---
Immediate Post Op Note v1 Date of Surgery September 30, 2018 Pre & Post Diagnosis Operation Date: 09/30/18 07:30 Pre-Op Diagnosis: Possible septic emboli with infarctions or pulmonary infarctions Post-Op Diagnosis: same as preop Procedure Operation Date: 09/30/18 07:30 Actual Procedures Endobronchial Ultrasound with Biopsies - Gilberto Sinclair MD, FACS Surgeon Gilberto Sinclair MD, FACS [employer] Estimated Blood Loss 3 Findings Consistent with Post-Op Diagnosis
[2018-09-30] MEDS ORDERED: LARYING-O-JET KIT (LTA) ONE (09:57)
[2018-09-30] MEDS ORDERED: CLINDAMYCIN PHOS 300 MG/2 ML VIAL ONE (09:59)
--- NOTE | 2018-09-30 10:08 | Nephrology Progress Note ---
Date of Service September 30, 2018 Assessment & Plan (1) BISHOP (acute kidney injury): -- BISHOP likely related to acute inflammation / underlying infection. Clinically consistent with ATN and less likely infection related GN. 09/[address] reviewed: No obstruction, Urinalysis 09/10: Negative for protein , blood related to Diop catheter. 24 hour UPEP demonstrated mixed glomerular and tubular proteinuria. No monoclonal abnormality appreciated. Microscopic hematuria persists and will require outpatient follow up. -- Renal function has been improving and staying stable, creatinine 1.7, electrolyte acceptable. (baseline Cr ~ 0.9). --blood pressure staying above goal, currently on metoprolol 12.5 twice a day, suggest increasing to metoprolol 25 milligram twice a day. -- Monitor serial PRP Will follow (2) Polyuria: -- Patient refused MRI -- UOP improved -- Monitor I/O (3) Pneumonia: -- Bacterial cultures are NGTD -- Fungal and AFB cultures are pending -- Bronch planned for tomorrow (4) Septic arthritis: -- ID recommends 6 weeks empiric antibiotic therapy Subjective Mr. Ramon was not in his room as he just left for were for bronchoscopy this morning. Labs and vital signs are reviewed, discussed with patient's nurse. Renal function seems to be stable, electrolyte acceptable. Blood pressure has been running high. Physical Exam 2 Vital Signs (Past 24 Hours): Last Vital Signs Temp 36.2 C L 09/30/18 09:53 Pulse 54 L 09/30/18 10:00 Resp 15 09/30/18 10:00 BP 153/93 H 09/30/18 10:00 Pulse Ox 100 09/30/18 10:00 _ (1) Pneumonia Aspiration pneumonia type: Laterality: right Lung location: unspecified part of lung Pneumonia type: due to unspecified organism Qualified Code(s): J18.9 - Pneumonia, unspecified organism (2) Septic arthritis Laterality: left Septic arthritis location: knee Septic arthritis organism: due to unspecified organism Qualified Code(s): M00.9 - Pyogenic arthritis, unspecified
--- NOTE | 2018-09-30 10:18 | XRay Report ---
XR chest 1V portable CLINICAL HISTORY: s/p ebus COMPARISON STUDY: 09/27/2018 FINDINGS: The heart remains enlarged. There are stable right middle lower lung zone consolidative candice nges. There is associated right pleural effusion. No pneumothorax is visualized. There are a few wisp y opacities within the left midlung zone.[ IMPRESSION: No evidence of pneumothorax status post endobronchial biopsy Electronically signed by: Philippe Dixon M.D. 09/30/2018 10:17 AM
[2018-09-30] MEDS: fentaNYL citrate 100 MCG/2 ML VIAL IV PRN ×4 (10:19→10:34)
--- NOTE | 2018-09-30 10:46 | Anesthesiology Progress Note ---
Date of Service September 30, 2018 Anesthesia Post Procedure Vital Signs Vital Signs: Temp Pulse Pulse Pulse Resp BP BP 09/30/18 10:35 52 L 11 L 09/30/18 10:31 58 L 13 159/96 H 09/30/18 10:30 55 L 15 09/30/18 10:26 55 L 14 153/88 H 09/30/18 10:25 36.6 C 57 L 12 09/30/18 10:21 55 L 16 167/91 H 09/30/18 10:20 53 L 20 09/30/18 10:16 59 L 16 165/95 H 09/30/18 10:15 57 L 14 09/30/18 10:11 55 L 16 158/98 H 09/30/18 10:10 56 L 17 09/30/18 10:06 59 L 17 165/94 H 09/30/18 10:05 58 L 17 09/30/18 10:01 55 L 17 153/93 H 09/30/18 10:00 57 L 54 L 17 09/30/18 09:56 63 17 169/95 H 09/30/18 09:55 62 17 09/30/18 09:53 36.2 C L 68 68 22 170/97 H 09/30/18 09:52 12 09/30/18 08:11 36.6 C 62 18 174/85 H 09/30/18 07:00 36.6 C 62 18 09/30/18 00:00 36.8 C 74 20 09/29/18 20:20 68 09/29/18 15:03 36.8 C 71 20 155/80 H BP Pulse Ox 09/30/18 10:35 98 09/30/18 10:31 98 09/30/18 10:30 98 09/30/18 10:26 96 09/30/18 10:25 100 09/30/18 10:21 100 09/30/18 10:20 100 09/30/18 10:16 100 09/30/18 10:15 100 09/30/18 10:11 100 09/30/18 10:10 100 09/30/18 10:06 99 09/30/18 10:05 100 09/30/18 10:01 100 09/30/18 10:00 153/93 H 100 09/30/18 09:56 100 09/30/18 09:55 100 12/24/18 09:53 170/97 H 99 09/30/18 09:52 100 09/30/18 08:11 100 09/30/18 07:00 162/89 H 98 09/30/18 00:00 153/86 H 97 09/29/18 20:20 156/81 H 100 09/29/18 15:03 98 Pain Intensity Left Leg: Pain Intensity: 8 Bilateral Abdomen: Pain Intensity: 6 Lower Back: Pain Intensity: 9 Generalized: Pain Intensity: 8 Notes Mental Status: alert / awake / arousable Patient Amnestic to Procedure: Yes Nausea / Vomiting: adequately controlled Pain: adequately controlled Airway Patency, RR, SpO2: stable & adequate BP & HR: stable & adequate Hydration State: stable & adequate Anesthetic Complications: no major complications apparent
[2018-09-30] MEDS: OXYCODONE HCL 15 MG TABCR (OXYCONTIN) PO SCH ×2 (11:17→22:33)
--- NOTE | 2018-09-30 12:55 | Operative Report ---
DATE OF OPERATION: 09/30/2018 PREOPERATIVE DIAGNOSES: 1. Right pulmonary parenchymal process of unknown etiology. 2. Mediastinal lymphadenopathy. POSTOPERATIVE DIAGNOSES: 1. Right pulmonary parenchymal process of unknown etiology. 2. Mediastinal lymphadenopathy. PROCEDURE: 1. Endobronchial ultrasound with biopsy. 2. Fiberoptic bronchoscopy with washings. SURGEON: Gilberto Sinclair MD ADOPTION SOCIAL WORKER: Mikey Corley RRT ANESTHESIA: General anesthesia with endotracheal intubation. INDICATION FOR PROCEDURE AND FINDINGS: A 58-year-old male with multiple medical issues who has possible septic emboli or simply pulmonary infarctions to his right lung. The patient is an IV drug user and got his left knee prostheses, which has been in for 10 years, in fact it had to be removed at [facility]. He is here now and the process in his right middle lobe and upper lobe was not present 3 months ago. Extremely concerning and he has undergone a bronchoscopy with no answer as well as a CT-guided aspiration, which again has no answer. All I doubt this is a malignancy and we see no endobronchial lesions, he does have lymphadenopathy. He also has a cough. His cough has been more productive. I felt an endobronchial ultrasound with possible fiberoptic bronchoscopy would help us delineate what is going on with this patient. Right now, we are unsure as to the etiology of this right-sided pulmonic process. On 09/30/2018, the patient was brought to the Operating Room and underwent uncomplicated endobronchial ultrasound. I biopsied right level 4, right level 10 and level 7 lymph nodes. We did get lymphocytes back on these. He also had a significant amount of tenacious sputum on the right and I completely irrigate this out and sent it for stat Gram stain and culture as well as AFB and fungal stains and cultures. We then did the endobronchial ultrasound after biopsying these. We really did not get into much bleeding. He tolerated it well. DESCRIPTION OF PROCEDURE: The patient was brought to Operating Room, laid in supine position. General anesthesia induced and endotracheal intubation was performed. Appropriate timeout have been called and prophylactic antibiotics given. An adapter was attached into the endotracheal tube and the endobronchial ultrasound scope was placed. Upon placing this, it could be seen there is a large amount of thick sputum in the right mainstem bronchus. I removed the endobronchial ultrasound scope and placed the fiberoptic bronchoscope in place. I then suctioned out all of this sputum from the right. This is mostly in the right mainstem and right bronchus intermedius. After we suctioned this completely clear, we sent off all of this for a stat Gram stain as well as cytology and cultures. The left side was clear. After inspecting all the airways and seeing no abnormalities, I switched back over to an endobronchial ultrasound and then biopsy the level 4 node because that is enlarged. Surprisingly on a rapid on site evaluation, we did not see much in the way of lymphocytes and I had biopsied this a total of 12 times before we got good lymphocytes. There were many neutrophils noted. We got into very little bleeding with this. I then went down further to the level 10 area and I biopsied some smaller nodes and we did get some lymphocytes. Finally, I biopsied level 7 node. I did this from the left side and got lymphocytes and switched back over to a fiberoptic bronchoscope and closely inspected and sucked out all of this blood and sputum. This all looked quite good. I slowly removed the bronchoscope. He tolerated it well, was not bleeding at the end and was extubated in the room. I attest to the content of the Intraoperative Record and any orders documented therein. Any exceptions are noted below. SUSHIL
[2018-09-30] MEDS: VANCOMYCIN HCL 1,000 MG in SODIUM CHLORIDE 0.9% 250 ML IV SCH (13:50)
[2018-09-30] MEDS: OXYCODONE HCL IR 5 MG TAB (IMMEDIATE RELEASE) PO PRN ×3 (13:51→22:01)
[2018-09-30 13:54] LABS: Quantiferon Mitogen-NIL 5.59 IU/ML; Quantiferon NIL 0.01 IU/ML; Quantiferon TB Gold Plus NEGATIVE; Quantiferon TB1-NIL 0.01 IU/ML; Quantiferon TB2-NIL 0.02 IU/ML
--- NOTE | 2018-09-30 16:05 | Hospitalist Progress Note ---
Date of Service September 30, 2018 Assessment & Plan (1) Pneumonia: CT chest 09/18 showed cavitations in right lower lobe, consistent with necrotizing pneumonia. Clinically, the patient has no right sided chest pain. Report of Strep pneumoniae bacteremia at [facility]. Per Dr. Serrano (ID) on 09/27, he will need 6 weeks of antibiotics for his septic arthritis and bacteremia. He did not feel that KIARA was neccesary given his prolonged course of antibiotics. CT-guided biopsy on 09/27 has not grown any bacteria. Seen by Dr. Jimenez (pulm) on 09/28 with thought that we still weren't clear what was causing the pneumonia, and that he would need transbronchial biopsy or even VATS. Transbronchial biopsy done on 09/30. - Follow up cultures and biopsies from 09/30 - Continue vanc/Zosyn (2) Infection associated with internal left knee prosthesis: Patient presented complaining of worsening left knee pain, was hospitalized at [facility] for over a month secondary to an infection of his left knee prosthesis (initially placed in 2007), hx of multiple revisions to his left knee. Four days prior to this admission, the prosthesis was removed and replaced with an antibiotic spacer. He then left [facility] AMA due to the desire to be closer to family and home. - At this point, ID recommending 6 weeks of IV abx, then will likely need transfer to tertiary care center for knee revision (3) Septic arthritis: History as above. - Consulted orthopedic surgery - greatly appreciate assistance - Continue abx as above - Pain control - Ultimately, patient will need to follow up at [place] for repeat TKA once spacer in place for 6 weeks and completed 6 weeks of IV antibiotics (4) Cirrhosis, alcoholic: New diagnosis, patient with cirrhotic morphology of liver on CT scan on . He has ascites on exam, peripheral edema, and albumin is very low at 1.0. History of heavy drinking and HCV Ab was positive. - Hold on inpatient GI consult since he is compensated, should be referred to GI on discharge (5) BISHOP (acute kidney injury): Baseline Cr ~0.9. Cr. persistently high at 1.7-1.8. Thought that this is ATN from infection and not necessarily from infectious glomerularnephritis. - Continue to follow - Appreciate nephrology consultation (6) History of intravenous drug abuse: (7) Hypertension: BP high-normal while inpatient, 140/170/80-100. - On metoprolol 12.5mg PO BID - Added amlodipine 5mg PO daily on 09/30 (8) Anemia: Baseline hgb ~10-11. Currently ~8.0. B12, folate were normal on 09/15. Ferritin elevated on the same day. No signs of active bleeding. Likely from malnutrition, cirrhosis, and alcohol abuse. - Continue PPI for gastric protection - Continue to follow (9) DVT prophylaxis: Lovenox 40mg subcut daily Subjective 58yo M w/ hx of IVDA and septic left knee who presents with worsening cough, found to have cavitary lung lesions. Seen after bronchoscopy today. No complaints. He is quite sleepy from the anesthesia. Reports no fevers/chills, chest pain, shortness of breath, abdominal pain, nausea, or vomiting. Physical Exam 2 Vital Signs (Past 24 Hours): Last Vital Signs Temp 36.5 C 09/30/18 11:11 Pulse 53 L 09/30/18 11:11 Resp 16 09/30/18 10:56 BP 173/96 H 09/30/18 11:11 Pulse Ox 100 09/30/18 11:11 Constitutional: WD/WN, vitals as above Eyes: PERRL, conjunctivae normal, anicteric sclerae ENMT: external ear and nose normal, oropharynx normal Neck: trachea midline, no thyromegaly Respiratory: normal respiratory effort, lungs clear to auscultation normal respiratory effort; no respiratory distress and no labored breathing Auscultation: + breath sounds absent (right base) Cardiovascular: RRR, no murmur, no edema Gastrointestinal (Abdomen): normal bowel sounds, soft, nontender, no hepatosplenomegaly Musculoskeletal: Head/Neck/Chest: normocephalic and head atraumatic Extremities: + limited ROM of extremities (left knee) and + joint enlargement ( left knee) Skin: no rashes, warm and dry Psychiatric: Orientation: alert and oriented x 3 Mood: + depressed mood and + irritable mood Lymphatic: no cervical or axillary lymphadenopathy _ (1) Cirrhosis, alcoholic Ascites presence: with ascites Qualified Code(s): K70.31 - Alcoholic cirrhosis of liver with ascites (2) Infection associated with internal left knee prosthesis Encounter type: sequela Qualified Code(s): T84.54XS - Infection and inflammatory reaction due to internal left knee prosthesis, sequela (3) Anemia Anemia type: unspecified type Iron deficiency anemia type: Vitamin B12 deficiency anemia type: Folate deficiency anemia type: Bone marrow failure anemia type: Hemolytic anemia type: Other causes of anemia: Chronic kidney disease stage: Qualified Code(s): D64.9 - Anemia, unspecified (4) Hypertension Hypertension type: essential hypertension Qualified Code(s): I10 - Essential (primary) hypertension (5) Pneumonia Aspiration pneumonia type: Laterality: right Lung location: unspecified part of lung Pneumonia type: due to unspecified organism Qualified Code(s): J18.9 - Pneumonia, unspecified organism (6) Septic arthritis Laterality: left Septic arthritis location: knee Septic arthritis organism: due to unspecified organism Qualified Code(s): M00.9 - Pyogenic arthritis, unspecified
[2018-09-30] MEDS: LIDOCAINE 5% 1 PATCH TD SCH (21:28)
[2018-09-30] MEDS: ENOXAPARIN INJ 40 MG/0.4 ML SYR SQ SCH (21:31)
[2018-09-30] MEDS: LORazepam 1 MG TAB PO PRN (23:47)
[2018-10-01] MEDS: OXYCODONE HCL IR 5 MG TAB (IMMEDIATE RELEASE) PO PRN ×4 (02:28→22:20)
[2018-10-01] MEDS: HYDROmorphone INJ 1 MG/ML SYRINGE IV PRN ×5 (03:49→20:16)
[2018-10-01] MEDS: PIPERACILLIN/TAZOBACTAM 3.375 GM in DEXTROSE 5% 100 ML IV SCH ×3 (03:49→20:27)
[2018-10-01] MEDS ORDERED: CLINDAMYCIN PHOS 900 MG/6 ML VIAL IV SCH (06:00)
[2018-10-01] MEDS: DiphenhydrAMINE HCL 50 MG/ML VIAL IV PRN ×3 (06:14→18:20)
[2018-10-01 07:07] LABS: Hematocrit (blood only) 23.6 % (42-52); Hemoglobin 7.6 g/dL (14.0-18.0); Mean Corpuscular Hgb Conc 32.2 g/dL (32-36); Mean Corpuscular Volume 93.3 fL (80-100); Mean Platelet Volume 7.8 fL (7.4-10.4); Platelet Count 363 K/uL (130-400); RDW Coefficient of Variation 15.6 % (11.5-14.5); RDW Standard Deviation 52.7 fL (36.4-46.3); Red Blood Count 2.53 M/uL (4.7-6.1)
[2018-10-01 07:32] LABS: BUN Creatinine Ratio 17.5 (10-20); Calcium 7.8 mg/dl (8.5-10.1); Creatinine Clr Calc Pharmacy 60.2 ml/min; Est GFR (African American) 50.8; Est GFR (Non-African American) 43.8; Magnesium 1.9 mg/dl (1.8-2.4); Potassium 4.6 mmol/L (3.5-5.1)
[2018-10-01] MEDS: AMMONIUM LACTATE 12% LOTION 225 GM BTL EXT SCH ×2 (07:50→20:30)
[2018-10-01] MEDS: LACTOBACILLUS ACIDOPHILUS (FLORANEX) TAB PO SCH ×4 (07:50→20:31)
[2018-10-01] MEDS: methylPREDNISolone 40 MG in SYRINGE 0 ML IV SCH ×2 (07:57→21:51)
[2018-10-01] MEDS: METOPROLOL TARTRATE 25 MG TAB PO SCH ×2 (07:57→20:32)
[2018-10-01] MEDS: AMLODIPINE BESYLATE 5 MG TAB PO SCH (07:57)
[2018-10-01] MEDS: INSULIN ASPART 100 UNITS/ML 3 ML PEN SC SCH ×5 (07:58→21:41)
--- NOTE | 2018-10-01 10:27 | Nephrology Progress Note ---
Date of Service October 01, 2018 Assessment & Plan (1) BISHOP (acute kidney injury): -- BISHOP likely related to acute inflammation / underlying infection. Clinically consistent with ATN and less likely infection related GN. 09/[address] reviewed: No obstruction, Urinalysis 09/10: Negative for protein , blood related to Diop catheter. 24 hour UPEP demonstrated mixed glomerular and tubular proteinuria. No monoclonal abnormality appreciated. Microscopic hematuria persists and will require outpatient follow up. -- Renal function has been improving and staying stable, creatinine 1.7, electrolyte acceptable. (baseline Cr ~ 0.9). --blood pressure staying above goal, currently on metoprolol 12.5 twice a day, suggest increasing to metoprolol 25 milligram twice a day. -- Monitor serial PRP while in patient. Will sign off for now, please schedule with Dr. Pozo for outpt Nephrology f/ u in 3/4 weeks after discharge, please have pt lab done prior to visit. Thank you. (2) Polyuria: -- Patient refused MRI -- UOP improved -- Monitor I/O (3) Pneumonia: -- Bacterial cultures are NGTD -- Fungal and AFB cultures are pending -- Bronch planned for tomorrow (4) Septic arthritis: -- ID recommends 6 weeks empiric antibiotic therapy Subjective Mr. Ramon was seen and examined in his room this morning. Renal function seems to be stable, electrolyte acceptable. Blood pressure has been running high. Continue to have cough with blood tinged sputum , s/p Bronchoscopy yesterday. Constitutional: + weakness; no fever Respiratory: + cough and + change in sputum Physical Exam 2 Vital Signs (Past 24 Hours): Last Vital Signs Temp 36.9 C 10/01/18 07:32 Pulse 74 10/01/18 07:32 Resp 20 10/01/18 07:32 BP 160/82 H 10/01/18 07:32 Pulse Ox 99 10/01/18 07:32 Constitutional: WD/WN, vitals as above + ill appearing Respiratory: Auscultation: + diminished lung sounds and + rales Cardiovascular: RRR, no murmur, no edema Neurologic: moves all extremities and awake Psychiatric: A+Ox3, euthymic affect _ (1) Pneumonia Aspiration pneumonia type: Laterality: right Lung location: unspecified part of lung Pneumonia type: due to unspecified organism Qualified Code(s): J18.9 - Pneumonia, unspecified organism (2) Septic arthritis Laterality: left Septic arthritis location: knee Septic arthritis organism: due to unspecified organism Qualified Code(s): M00.9 - Pyogenic arthritis, unspecified
[2018-10-01] MEDS: OXYCODONE HCL 15 MG TABCR (OXYCONTIN) PO SCH ×2 (10:42→23:20)
--- NOTE | 2018-10-01 12:18 | Hospitalist Progress Note ---
Date of Service October 01, 2018 Assessment & Plan (1) Pneumonia: CT chest on 09/18 showed cavitations in right lower lobe, consistent with necrotizing pneumonia. Clinically, the patient has no right sided chest pain. [facility] cultures are as follows: Blood culture on 08/24 was positive for Strep pneumoniae. Repeat blood cultures on 08/31 and 09/03 were negative for any bacteria. Per Dr. Serrano (ID) on 09/27, he will need 6 weeks of antibiotics for his septic arthritis and bacteremia. He did not feel that KIARA was neccesary given his prolonged course of antibiotics. CT-guided lung biopsy on 09/27 has not grown any bacteria. Seen by Dr. Jimenez (pulm) on 09/28 with thought that we still weren't clear what was causing the pneumonia, and that he would need transbronchial biopsy or even VATS. Transbronchial biopsy done on by Dr. Sinclair. - Follow up cultures and biopsies from 09/30 - Continue vanc/Zosyn (2) Infection associated with internal left knee prosthesis: Patient presented complaining of worsening left knee pain. He was hospitalized at [facility] for over a month secondary to an infection of his left knee prosthesis (initially placed in 2007). Synovial culture from grew Gram(+) cocci, presumed to be Strep pneumo, but was too rare to speciate. He then had another surgery on 09/03 with actual knee tissue that showed Gram(+) cocci on Gram stain, but could not grow in culture. Four days prior to this admission (likely on 09/03, but notes are not 100% clear), the prosthesis was removed and replaced with an antibiotic spacer. He then left [facility] AMA due to the desire to be closer to family and home. - At this point, ID recommending 6 weeks of IV abx, then will likely need transfer to tertiary care center for knee revision - Continue vanc/Zosyn at present, but will attempt to reach ID to see why he cannot be switched to ceftriaxone for the remaining course (3) Septic arthritis: History as above. - Consulted orthopedic surgery - greatly appreciate assistance - Continue abx as above - Pain control - Ultimately, patient will need to follow up at [place] for repeat TKA once spacer in place for 6 weeks and completed 6 weeks of IV antibiotics (4) Cirrhosis, alcoholic: New diagnosis, patient with cirrhotic morphology of liver on CT scan on . He has ascites on exam, peripheral edema, and albumin is very low at 1.0. History of heavy drinking and HCV Ab was positive, though no HCV RNA on 09/22. - Hold on inpatient GI consult since he is compensated, should be referred to GI on discharge (5) BISHOP (acute kidney injury): Baseline Cr ~0.9. Cr. persistently high at 1.7-1.8. Thought that this is ATN from infection and not necessarily from infectious glomerulonephritis. - Continue to follow - Appreciate nephrology consultation (6) History of intravenous drug abuse: (7) Hypertension: BP high-normal while inpatient, 140/170/80-100. - On metoprolol 12.5mg PO BID - Added amlodipine 5mg PO daily on 09/30 - As of 10/01, BP improving slightly; will give amlodipine a few days to take effect. (8) Anemia: Baseline hgb ~10-11. Currently ~7.5-8.0. B12, folate were normal on . Ferritin elevated on the same day. No signs of active bleeding. Likely from malnutrition, cirrhosis, and alcohol abuse. - Continue PPI for gastric protection - Continue to follow (9) DVT prophylaxis: Lovenox 40mg subcut daily Subjective 58yo M w/ hx of IVDA and septic left knee who presents with worsening cough, found to have cavitary lung lesions. No complaints today. He was sleeping on arrival and took some time to wake up. Reports no fevers/chills, chest pain, shortness of breath, abdominal pain, nausea, or vomiting. Physical Exam 2 Vital Signs (Past 24 Hours): Last Vital Signs Temp 36.9 C 10/01/18 07:32 Pulse 74 10/01/18 07:32 Resp 20 10/01/18 07:32 BP 160/82 H 10/01/18 07:32 Pulse Ox 99 10/01/18 07:32 Constitutional: WD/WN, vitals as above Eyes: PERRL, conjunctivae normal, anicteric sclerae ENMT: external ear and nose normal, oropharynx normal Neck: trachea midline, no thyromegaly Respiratory: normal respiratory effort, lungs clear to auscultation normal respiratory effort; no respiratory distress and no labored breathing Auscultation: + breath sounds absent (right base) Cardiovascular: RRR, no murmur, no edema Gastrointestinal (Abdomen): normal bowel sounds, soft, nontender, no hepatosplenomegaly Musculoskeletal: Head/Neck/Chest: normocephalic and head atraumatic Extremities: + limited ROM of extremities (left knee) and + joint enlargement ( left knee) Skin: no rashes, warm and dry Psychiatric: Orientation: alert and oriented x 3 Mood: + depressed mood and + irritable mood Lymphatic: no cervical or axillary lymphadenopathy _ (1) Pneumonia Aspiration pneumonia type: Laterality: right Lung location: unspecified part of lung Pneumonia type: due to unspecified organism Qualified Code(s): J18.9 - Pneumonia, unspecified organism (2) Infection associated with internal left knee prosthesis Encounter type: sequela Qualified Code(s): T84.54XS - Infection and inflammatory reaction due to internal left knee prosthesis, sequela (3) Septic arthritis Laterality: left Septic arthritis location: knee Septic arthritis organism: due to unspecified organism Qualified Code(s): M00.9 - Pyogenic arthritis, unspecified (4) Cirrhosis, alcoholic Ascites presence: with ascites Qualified Code(s): K70.31 - Alcoholic cirrhosis of liver with ascites (5) Hypertension Hypertension type: essential hypertension Qualified Code(s): I10 - Essential (primary) hypertension (6) Anemia Anemia type: unspecified type Iron deficiency anemia type: Vitamin B12 deficiency anemia type: Folate deficiency anemia type: Bone marrow failure anemia type: Hemolytic anemia type: Other causes of anemia: Chronic kidney disease stage: Qualified Code(s): D64.9 - Anemia, unspecified
[2018-10-01] MEDS ORDERED: CLINDAMYCIN 900 MG in DEXTROSE 5% 100 ML IV SCH (13:00)
[2018-10-01] MEDS: VANCOMYCIN HCL 1,000 MG in SODIUM CHLORIDE 0.9% 250 ML IV SCH (13:47)
[2018-10-01] MEDS ORDERED: ALBUT/IPRATROP 3MG/0.5MG NEB 3 ML VIAL NEB PRN (16:43)
[2018-10-01] MEDS: LIDOCAINE 5% 1 PATCH TD SCH (20:30)
[2018-10-01] MEDS: ENOXAPARIN INJ 40 MG/0.4 ML SYR SQ SCH (20:33)
[2018-10-01] MEDS: LORazepam 1 MG TAB PO PRN (21:51)
[2018-10-02] MEDS: HYDROmorphone INJ 1 MG/ML SYRINGE IV PRN ×6 (00:07→21:29)
[2018-10-02] MEDS: DiphenhydrAMINE HCL 50 MG/ML VIAL IV PRN ×4 (00:08→19:11)
[2018-10-02] MEDS: OXYCODONE HCL IR 5 MG TAB (IMMEDIATE RELEASE) PO PRN ×5 (02:01→23:40)
[2018-10-02] MEDS: PIPERACILLIN/TAZOBACTAM 3.375 GM in DEXTROSE 5% 100 ML IV SCH ×3 (04:21→21:22)
[2018-10-02] MEDS: AMMONIUM LACTATE 12% LOTION 225 GM BTL EXT SCH ×2 (07:41→21:28)
[2018-10-02] MEDS: INSULIN ASPART 100 UNITS/ML 3 ML PEN SC SCH ×4 (07:42→20:59)
--- NOTE | 2018-10-02 07:54 | Anesthesiology Progress Note ---
Date of Service October 02, 2018 Anesthesia Post Procedure Vital Signs Vital Signs: Temp Pulse Resp BP BP Pulse Ox 10/02/18 07:23 36.9 C 78 20 145/75 H 99 10/01/18 23:03 36.5 C 71 18 145/86 H 99 10/01/18 20:15 36.7 C 71 132/76 96 10/01/18 14:53 36.6 C 108 H 16 156/84 H 99 Pain Intensity Left Leg: Pain Intensity: 8 Bilateral Abdomen: Pain Intensity: 0 Lower Back: Pain Intensity: 0 Generalized: Pain Intensity: 7 Notes Mental Status: alert / awake / arousable and participated in evaluation Patient Amnestic to Procedure: Yes Nausea / Vomiting: adequately controlled Pain: adequately controlled Airway Patency, RR, SpO2: stable & adequate BP & HR: stable & adequate Hydration State: stable & adequate Anesthetic Complications: no major complications apparent and Pt Satisfied with anesthetic care
[2018-10-02] MEDS: AMLODIPINE BESYLATE 5 MG TAB PO SCH (08:13)
[2018-10-02] MEDS: methylPREDNISolone 40 MG in SYRINGE 0 ML IV SCH ×2 (08:13→21:29)
[2018-10-02] MEDS: METOPROLOL TARTRATE 25 MG TAB PO SCH ×2 (08:13→21:30)
[2018-10-02] MEDS: LACTOBACILLUS ACIDOPHILUS (FLORANEX) TAB PO SCH ×4 (08:14→21:29)
[2018-10-02] MEDS: OXYCODONE HCL 15 MG TABCR (OXYCONTIN) PO SCH ×2 (10:52→22:25)
--- NOTE | 2018-10-02 11:53 | Hospitalist Progress Note ---
Date of Service October 02, 2018 Assessment & Plan (1) Pneumonia: CT chest on 09/18 showed cavitations in right lower lobe, consistent with necrotizing pneumonia. Clinically, the patient has no right sided chest pain. [facility] cultures are as follows: Blood culture on 08/24 was positive for Strep pneumoniae. Repeat blood cultures on 08/31 and 09/03 were negative for any bacteria. Per Dr. Serrano (ID) on 09/27, he will need 6 weeks of antibiotics for his septic arthritis and bacteremia. He did not feel that KIARA was neccesary given his prolonged course of antibiotics. CT-guided lung biopsy on 09/27 has not grown any bacteria. Seen by Dr. Jimenez (pulm) on 09/28 with thought that we still weren't clear what was causing the pneumonia, and that he would need transbronchial biopsy or even VATS. Transbronchial biopsy done on by Dr. Sinclair. - biopsies of lymph nodes show some blood and lymphatic tissue, no malignancy, cultures still pending - Continue vanc/Zosyn breathing room air, no distress, no fever, WBC normal, productive cough with brown sputum (2) Infection associated with internal left knee prosthesis: Patient presented complaining of worsening left knee pain. He was hospitalized at [facility] for over a month secondary to an infection of his left knee prosthesis (initially placed in 2007). Synovial culture from grew Gram(+) cocci, presumed to be Strep pneumo, but was too rare to speciate. He then had another surgery on 09/03 with actual knee tissue that showed Gram(+) cocci on Gram stain, but could not grow in culture. Four days prior to this admission (likely on 09/03, but notes are not 100% clear), the prosthesis was removed and replaced with an antibiotic spacer. He then left [facility] AMA due to the desire to be closer to family and home. - At this point, ID recommending 6 weeks of IV abx, ortho recommends knee revision to be done at [place] - Continue vanc/Zosyn at present, will discuss with ID about tapering antibiotics patient does not want to go to [place] for surgery, he was only in [place] temporarily when he got this infection he lives in [place], his family is here will ask Dr. Bourgeois if placing new TKA on left here at [place] is possible ideally he should be stronger, working towards going to rehab (3) Septic arthritis: History as above. - Consulted orthopedic surgery - greatly appreciate assistance - Continue abx as above - Pain control will increase long acting Oxycodone to 30mg q12 from 15mg q12 continue Oxycodone 10mg q4 PRN Dilaudid IV only for breakthrough (4) Cirrhosis, alcoholic: New diagnosis, patient with cirrhotic morphology of liver on CT scan on . He has ascites on exam, peripheral edema, and albumin was very low at 1.0. History of heavy drinking and HCV Ab was positive, though no HCV RNA on 09/22. - Hold on inpatient GI consult since he is compensated, should be referred to GI on discharge (5) BISHOP (acute kidney injury): Baseline Cr ~0.9. Cr. persistently high at 1.7-1.8. Thought that this is ATN from infection and not necessarily from infectious glomerulonephritis. - Continue to follow - Appreciate nephrology consultation, they ave signed off Cr is 1.7, making adequate urine, choi pulled (6) History of intravenous drug abuse: remote history, nothing recent (7) Hypertension: BP high-normal while inpatient, 140/170/80-100. - On metoprolol 12.5mg PO BID - Added amlodipine 5mg PO daily on 09/30 - As of 10/01, BP improving slightly; will give amlodipine a few days to take effect. (8) Anemia: Baseline hgb ~10-11. Currently ~7.5-8.0. B12, folate were normal on . Ferritin elevated on the same day. No signs of active bleeding. Likely from malnutrition, cirrhosis, and alcohol abuse. - Continue PPI for gastric protection - Continue to follow (9) DVT prophylaxis: Lovenox 40mg subcut daily (10) Depression: patient is frustrated about current disposition he has been in a hospital for two months now, unable to get up independently he said to the RN today that he would want his friends to bring in a gun so he could end it immediately afterwards he said he wasn't serious, he was just stating how frustrated he was he is tearful during converstations will talk with him more tomorrow, consider psychiatry consultation if he is willing to talk with them Subjective long discussion with patient today, mostly about his pain control and his depression he is growing weary of being in the hospital, of being in a bed all day, of not being able to even get up and use the commode he says the pain is 10 out of 10 sometimes he feels like he will never get the new left TKA and will never walk again he just wants orthopedic surgery to perform AKA bilaterally he was tearful during our talk, frustrated with some of the nursing staff discussed with him that he has remained stable despite his necrotizing pneumonia he is not having dyspnea, he continues to have productive cough with brown colored sputum, ever since thoracentesis no fever/chills renal function stable, Cr at 1.7, nephrology signed off, choi pulled today WBC normal, Hb low but stable patient continues to eat well says that his pain is not controlled, the Dilaudid works the best but wears off quickly I reviewed his narcotics, have not changed in over 10 days, told him we could increase the long acting Oxycodone he agreed with this plan, he will continue to put forth his best effort with PT Review of Systems All systems reviewed & are unremarkable except as noted in HPI & below Constitutional: + weakness Musculoskeletal: + joint pain (severe pain in left knee) Psychiatric: + depression Physical Exam 2 Vital Signs (Past 24 Hours): Last Vital Signs Temp 36.9 C 10/02/18 07:23 Pulse 78 10/02/18 07:23 Resp 20 10/02/18 07:23 BP 145/75 H 10/02/18 07:23 Pulse Ox 99 10/02/18 07:23 Constitutional: WD/WN, vitals as above Eyes: PERRL, conjunctivae normal, anicteric sclerae ENMT: external ear and nose normal, oropharynx normal Neck: trachea midline, no thyromegaly Respiratory: normal respiratory effort, lungs clear to auscultation Cardiovascular: RRR, no murmur, no edema Gastrointestinal (Abdomen): normal bowel sounds, soft, nontender, no hepatosplenomegaly Musculoskeletal: Head/Neck/Chest: normocephalic and head atraumatic Extremities: + limited ROM of extremities (left knee) and + joint enlargement ( left knee) Skin: no rashes, warm and dry Neurologic: patellar DTR's 2+ bilat, sensation intact and PERRL, EOMI, accommodation nl, no face palsy, no dysarthria Psychiatric: A+Ox3, euthymic affect Orientation: alert and oriented x 3 Mood: + depressed mood and + irritable mood Lymphatic: no cervical or axillary lymphadenopathy Results & Data Laboratory Results Laboratory Results - last 24 hr 10/01/18 10/01/18 10/01/18 14:15 16:16 20:38 POC Glucose 168 H 226 H Nasal Screen MRSA (PCR) Negative 10/02/18 07:45 POC Glucose 287 H Nasal Screen MRSA (PCR) Medications Administered Current Inpatient Medications Acetaminophen (Tylenol) 650 mg PO Q4H PRN PRN Reason: pain/fever Stop: 10/10/18 18:42 Last Admin: 09/15/18 00:08 Dose: 650 mg Albuterol (Duoneb) 3 ml NEB QIDR PRN PRN Reason: Shortness Of Breath Or Wheezin Stop: 10/31/18 19:59 Amlodipine Besylate (Norvasc) 5 mg PO QAM JERSON Stop: 10/31/18 08:59 Last Admin: 10/02/18 08:13 Dose: 5 mg Dextrose (Dextrose 50%) 25 - 50 ml IV UD PRN; Protocol PRN Reason: Hypoglycemia Protocol Stop: 10/15/18 11:08 Diphenhydramine HCl (Benadryl) 25 mg IV Q6 PRN PRN Reason: Itching Stop: 10/22/18 21:08 Last Admin: 10/02/18 06:04 Dose: 25 mg Enoxaparin Sodium (Lovenox) 40 mg SQ PM JERSON Stop: 10/10/18 20:59 Last Admin: 10/01/18 20:33 Dose: 40 mg Glucagon (Glucagen) 1 mg IM UD PRN; Protocol PRN Reason: Hypoglycemia Protocol Stop: 10/15/18 11:08 Glucose (Glucose 40%) 15 - 30 gm PO UD PRN; Protocol PRN Reason: Hypoglycemia Protocol Stop: 10/15/18 11:08 Glucose (Dex4 Glucose) 4 - 8 tabs PO UD PRN; Protocol PRN Reason: Hypoglycemia Protocol Stop: 10/15/18 11:08 Hydromorphone HCl (Dilaudid) 1 mg IV Q4H PRN PRN Reason: Severe Pain Stop: 10/05/18 10:59 Last Admin: 10/02/18 08:13 Dose: 1 mg Piperacillin Sod/Tazobactam (Sod 3.375 gm/ Dextrose) 115 mls @ 28.75 mls/hr IV Q8H [facility]; Protocol Stop: 10/22/18 19:59 Last Admin: 10/02/18 11:36 Dose: 28.8 mls/hr Vancomycin HCl 1,000 mg/ (Sodium Chloride) 270 mls @ 125 mls/hr IV DAILY@1400 [facility] Stop: 10/29/18 13:59 Last Infusion: 10/01/18 16:32 Dose: Infused Methylprednisolone 40 mg/ (Syringe) 0.64 mls @ 1.5 mls/min IV BID [facility] Stop: 10/25/18 20:59 Last Admin: 10/02/18 08:13 Dose: 1.5 mls/min Insulin Aspart (Novolog Flexpen) 0 units SC ACHS [facility] Stop: 10/15/18 11:29 Last Admin: 10/02/18 07:42 Dose: Not Given Lactic Acid (Amlactin) 1 gm EXT BID [facility] Stop: 10/16/18 20:59 Last Admin: 10/02/18 07:41 Dose: Not Given Lactobacillus Acidophilus (Floranex) 4 tab PO QIDM [facility] Stop: 10/12/18 16:59 Last Admin: 10/02/18 11:35 Dose: 4 tab Lidocaine (Lidoderm 5%) 2 patch TD HS [facility] Stop: 10/11/18 21:59 Last Admin: 10/01/18 20:30 Dose: Not Given Lorazepam (Ativan) 1 mg PO HS PRN PRN Reason: Insomnia Stop: 10/13/18 19:00 Last Admin: 10/01/18 21:51 Dose: 1 mg Metoprolol Tartrate (Lopressor) 12.5 mg PO BID [facility] Stop: 10/26/18 08:59 Last Admin: 10/02/18 08:13 Dose: 12.5 mg Miscellaneous (Remove Lidoderm Patch) 2 ea N/A QAM [facility] Stop: 10/12/18 08:59 Last Admin: 10/02/18 07:41 Dose: Not Given Miscellaneous (Carbohydrates For Hypoglycemia) 15 - 30 gm PO UD PRN PRN Reason: Hypoglycemia Treatment Stop: 10/15/18 11:08 Last Admin: 09/15/18 16:24 Dose: 15 gm Miscellaneous Information (Consult) 1 ea N/A UD PRN PRN Reason: Consult Stop: 10/10/18 18:42 Last Admin: 09/28/18 14:31 Dose: 1 ea Miscellaneous Information (Consult) 1 ea N/A UD PRN PRN Reason: Consult Stop: 10/10/18 18:42 Ondansetron HCl (Zofran) 4 mg IV Q6H PRN PRN Reason: Nausea Stop: 10/10/18 18:42 Last Admin: 09/13/18 08:37 Dose: 4 mg Oxycodone HCl (Roxicodone Immediate Rel) 10 mg PO Q4H PRN PRN Reason: Pain Stop: 10/15/18 14:11 Last Admin: 10/02/18 06:04 Dose: 10 mg Oxycodone HCl (Oxycontin) 30 mg PO Q12H JERSON Stop: 10/16/18 10:59 Last Admin: 10/02/18 10:52 Dose: 30 mg _ (1) Anemia Anemia type: unspecified type Bone marrow failure anemia type: Chronic kidney disease stage: Folate deficiency anemia type: Hemolytic anemia type: Iron deficiency anemia type: Other causes of anemia: Vitamin B12 deficiency anemia type: Qualified Code(s): D64.9 - Anemia, unspecified (2) Septic arthritis Laterality: left Septic arthritis location: knee Septic arthritis organism: due to unspecified organism Qualified Code(s): M00.9 - Pyogenic arthritis, unspecified (3) Cirrhosis, alcoholic Ascites presence: with ascites Qualified Code(s): K70.31 - Alcoholic cirrhosis of liver with ascites (4) Infection associated with internal left knee prosthesis Encounter type: sequela Qualified Code(s): T84.54XS - Infection and inflammatory reaction due to internal left knee prosthesis, sequela (5) Hypertension Hypertension type: essential hypertension Qualified Code(s): I10 - Essential (primary) hypertension (6) Pneumonia Aspiration pneumonia type: Laterality: right Lung location: unspecified part of lung Pneumonia type: due to unspecified organism Qualified Code(s): J18.9 - Pneumonia, unspecified organism
[2018-10-02] MEDS ORDERED: VANCOMYCIN TROUGH ONE (13:30)
[2018-10-02] MEDS: VANCOMYCIN HCL 1,000 MG in SODIUM CHLORIDE 0.9% 250 ML IV SCH (13:55)
--- NOTE | 2018-10-02 15:04 | Pharmacy Report ---
Pharmacy Abx Dose Short Note - Date of Service October 02, 2018 - Assessment & Plan Assessment * Mr Ramon is a 58 year old M receiving vancomycin + Zosyn for treatment of progressive cavitary pneumonia and septic arthritis. * ID is following and recommends at least 6 weeks of therapy. Patient currently on day #23 of antimicrobial therapy. * Renal function has been stable for ~5 days. Ongoing SCr ordered q2days. * Patient has been on the same vanco dose for more than 2 weeks now, and trough levels have been stable. Plan Vancomycin * Trough level of 18.1 mcg/mL is therapeutic * Continue dose of 1000 mg IV every 24 hours * Goal trough level: 15 to 20 mcg/mL * No further levels have been ordered at this time. May consider evaluating another level in ~5-7 days or sooner if renal function changes significantly. Zosyn 3.375gm IV q8h Pharmacy will continue to follow and will adjust dose/frequency as necessary. Thank you.
--- NOTE | 2018-10-02 15:15 | Progress Note ---
DATE: 10/02/2018 Mr. Ramon was seen today. He states he feels "fine." He is on room air with 99% saturation. I reviewed the cytology with pathology today and there is no evidence of malignant disease. All these nodes were reactive and we have no growth from any of our washings. It is still not clear to me exactly what is causing the findings of the right chest; however, I do not believe this represents malignancy or infection. My feeling is we are probably dealing with some type of infarct. At this point, I would follow him serially with x-rays. He has multiple other issues, but it would be very good for him from a pulmonary standpoint to get up and walk. I will follow along and continue to see him while he is in the hospital.
[2018-10-02] MEDS: LIDOCAINE 5% 1 PATCH TD SCH (21:29)
[2018-10-02] MEDS: ENOXAPARIN INJ 40 MG/0.4 ML SYR SQ SCH (21:30)
[2018-10-03] MEDS: HYDROmorphone INJ 1 MG/ML SYRINGE IV PRN ×5 (01:03→21:05)
[2018-10-03] MEDS: DiphenhydrAMINE HCL 50 MG/ML VIAL IV PRN ×4 (01:03→22:27)
[2018-10-03] MEDS: PIPERACILLIN/TAZOBACTAM 3.375 GM in DEXTROSE 5% 100 ML IV SCH ×2 (04:06→15:29)
[2018-10-03] MEDS: OXYCODONE HCL IR 5 MG TAB (IMMEDIATE RELEASE) PO PRN ×4 (04:33→19:05)
[2018-10-03 07:34] LABS: Basophils # (auto) 0.01 K/uL (0-0.2); Basophils % (auto) 0.1 %; Hematocrit (blood only) 24.4 % (42-52); Hemoglobin 7.5 g/dL (14.0-18.0); Immature Granulocytes % (auto) 0.8 %; Lymphocytes # (auto) 2.14 K/uL (1.2-3.4); Lymphocytes % (auto) 16.7 %; Mean Corpuscular Hgb Conc 30.7 g/dL (32-36); Mean Corpuscular Volume 94.9 fL (80-100); Mean Platelet Volume 8.4 fL (7.4-10.4); Monocytes # (auto) 0.69 K/uL (0.11-0.59); Monocytes % (auto) 5.4 %; Neutrophils # (auto) 9.84 K/uL (1.4-6.5); Platelet Count 387 K/uL (130-400); RDW Coefficient of Variation 16.3 % (11.5-14.5); RDW Standard Deviation 55.9 fL (36.4-46.3); Red Blood Count 2.57 M/uL (4.7-6.1); White Blood Count 12.78 K/uL (4.8-10.8)
[2018-10-03 08:07] LABS: BUN Creatinine Ratio 17.5 (10-20); Calcium 8.1 mg/dl (8.5-10.1); Est GFR (African American) 54.6; Est GFR (Non-African American) 47.1; Potassium 4.6 mmol/L (3.5-5.1)
[2018-10-03 08:08] LABS: Basophilic Stippling Occasional; Hypochromasia Present
[2018-10-03] MEDS: AMLODIPINE BESYLATE 5 MG TAB PO SCH (08:55)
[2018-10-03] MEDS: LACTOBACILLUS ACIDOPHILUS (FLORANEX) TAB PO SCH ×4 (08:55→21:02)
[2018-10-03] MEDS: METOPROLOL TARTRATE 25 MG TAB PO SCH ×2 (08:56→21:12)
[2018-10-03] MEDS: methylPREDNISolone 40 MG in SYRINGE 0 ML IV SCH (08:57)
[2018-10-03] MEDS: INSULIN ASPART 100 UNITS/ML 3 ML PEN SC SCH ×4 (09:02→21:02)
[2018-10-03] MEDS: OXYCODONE HCL 15 MG TABCR (OXYCONTIN) PO SCH ×2 (10:30→22:27)
[2018-10-03] MEDS: AMMONIUM LACTATE 12% LOTION 225 GM BTL EXT SCH ×2 (13:45→21:02)
[2018-10-03] MEDS: cefTRIAXone SODIUM 2,000 MG in DEXTROSE 5% 50 ML IV SCH (13:46)
--- NOTE | 2018-10-03 16:35 | Hospitalist Progress Note ---
Date of Service October 03, 2018 Assessment & Plan (1) Pneumonia: CT chest on 09/18 showed cavitations in right lower lobe, consistent with necrotizing pneumonia. Clinically, the patient has no right sided chest pain. [facility] cultures are as follows: Blood culture on 08/24 was positive for Strep pneumoniae. Repeat blood cultures on 08/31 and 09/03 were negative for any bacteria. Per Dr. Serrano (ID) on 09/27, he will need 6 weeks of antibiotics for his septic arthritis and bacteremia. He did not feel that KIARA was neccesary given his prolonged course of antibiotics. CT-guided lung biopsy on 09/27 has not grown any bacteria. Seen by Dr. Jimenez (pulm) on 09/28 with thought that we still weren't clear what was causing the pneumonia, and that he would need transbronchial biopsy or even VATS. Transbronchial biopsy done on by Dr. Sinclair. - biopsies of lymph nodes show some blood and lymphatic tissue, no malignancy, cultures still pending - Continue vanc/Zosyn breathing room air, no distress, no fever, WBC normal, productive cough with brown sputum appreciate Dr. Sinclair's note, questions whether he has ongoing infection, could be an infarction either way, patient will be on Rocephin for several more weeks which will cover Strep pneumo pneumonia (2) Infection associated with internal left knee prosthesis: Patient presented complaining of worsening left knee pain. He was hospitalized at [facility] for over a month secondary to an infection of his left knee prosthesis (initially placed in 2007). Synovial culture from grew Gram(+) cocci, presumed to be Strep pneumo, but was too rare to speciate. He then had another surgery on 09/03 with actual knee tissue that showed Gram(+) cocci on Gram stain, but could not grow in culture. Four days prior to this admission (likely on 09/03, but notes are not 100% clear), the prosthesis was removed and replaced with an antibiotic spacer. He then left [facility] AMA due to the desire to be closer to family and home. - At this point, ID recommending 6 weeks of IV abx - change to Rocephin 2gm IV daily, two more weeks would be 6 weeks since surgery on 08/31 patient does not want to go to [place] for surgery, he was only in [place] temporarily when he got this infection he lives in [place], his family is here discussed with Dr. Bourgeois today, he reviewed films, unfortunately he cannot perform revision of the knee he recommends tertiary care discussed with patient, he would be open to going to [place], he again does not want [place] (3) Septic arthritis: History as above. - Consulted orthopedic surgery - greatly appreciate assistance - Continue abx as above - Pain control better control after increasing long acting Oxycodone to 30mg q12 from 15mg q12 continue Oxycodone 10mg q4 PRN Dilaudid IV only for breakthrough, patient knows he will not be on Dilaudid after discharge (4) Cirrhosis, alcoholic: New diagnosis, patient with cirrhotic morphology of liver on CT scan on . He has ascites on exam, peripheral edema, and albumin was very low at 1.0. History of heavy drinking and HCV Ab was positive, though no HCV RNA on 09/22. - Hold on inpatient GI consult since he is compensated, should be referred to GI on discharge referral can wait for the time being since he appears to be compensated he is eating well he has been sober for almost 8 weeks since he has been hospitalized he is done drinking (5) BISHOP (acute kidney injury): Baseline Cr ~0.9. Cr. persistently high at 1.7-1.8. Thought that this is ATN from infection and not necessarily from infectious glomerulonephritis. - Continue to follow - Appreciate nephrology consultation, they ave signed off Cr is 1.6, making adequate urine, choi pulled on 10/02, no issues urinating (6) History of intravenous drug abuse: remote history, nothing recent (7) Hypertension: BP high-normal while inpatient, 140/170/80-100. - On metoprolol 12.5mg PO BID - Added amlodipine 5mg PO daily on 09/30 - As of 10/01, BP improving slightly; will give amlodipine a few days to take effect. (8) Anemia: Baseline hgb ~10-11. Currently ~7.5-8.0. B12, folate were normal on . Ferritin elevated on the same day. No signs of active bleeding. Likely from malnutrition, cirrhosis, and alcohol abuse. - Continue PPI for gastric protection - Continue to follow, Hb 7.5 today (9) DVT prophylaxis: Lovenox 40mg subcut daily (10) Depression: patient is frustrated about current disposition he has been in a hospital for two months now, unable to get up independently patient denies suicidal ideation, just feels frustrated certainly mood improved when discussing going to rehab, he feels hopeful and is energized Subjective patient happy today, says pain is better with the increase in Oxycodone to 30mg BID he is thrilled about going to [facility] he is motivated to get better today I reviewed the case with Dr. Bourgeois today who performed his original knee replacement he said that the case would need to be referred to tertiary care center patient does not want to go to [place], too far from home he would prefer to go to [place], he has been there before for other procedures discussed plan with him, he will go to rehab, get stronger, continue Rocephin will need another 2-8 weeks of IV antibiotics he can follow up with ID in the office will need referred to [facility] as outpatient Review of Systems All systems reviewed & are unremarkable except as noted in HPI & below Respiratory: + cough and + sputum production Musculoskeletal: + joint pain (left knee, better today) Physical Exam 2 Vital Signs (Past 24 Hours): Last Vital Signs Temp 36.7 C 10/03/18 07:08 Pulse 72 10/03/18 07:08 Resp 19 10/03/18 07:08 BP 154/74 H 10/03/18 07:08 Pulse Ox 98 10/03/18 07:08 Constitutional: WD/WN, vitals as above Eyes: PERRL, conjunctivae normal, anicteric sclerae ENMT: external ear and nose normal, oropharynx normal Neck: trachea midline, no thyromegaly Respiratory: normal respiratory effort, lungs clear to auscultation no respiratory distress Cardiovascular: RRR, no murmur, no edema Gastrointestinal (Abdomen): normal bowel sounds, soft, nontender, no hepatosplenomegaly Musculoskeletal: Head/Neck/Chest: normocephalic and head atraumatic Extremities: + limited ROM of extremities (left knee) and + joint enlargement ( left knee) Skin: no rashes, warm and dry Neurologic: patellar DTR's 2+ bilat, sensation intact and PERRL, EOMI, accommodation nl, no face palsy, no dysarthria Psychiatric: Orientation: alert and oriented x 3 Mood: + depressed mood Lymphatic: no cervical or axillary lymphadenopathy Results & Data Laboratory Results Laboratory Results - last 24 hr 09/20/18 10/02/18 10/02/18 Unknown 16:27 20:36 WBC RBC Hgb Hct MCV MCH MCHC RDW Std Deviation RDW Coeff of Leatha Plt Count MPV Immature Gran % (Auto) Neut % (Auto) Lymph % (Auto) Mccormick % (Auto) Eos % (Auto) Baso % (Auto) Immature Gran # (Auto) Neut # (Auto) Lymph # (Auto) Mccormick # (Auto) Eos # (Auto) Baso # (Auto) Hypochromasia Basophilic Stippling Sodium Potassium Chloride Carbon Dioxide Anion Gap BUN Creatinine Est Cr Clr Drug Dosing Est GFR ( Amer) Est GFR (Non-Af Amer) BUN/Creatinine Ratio Glucose POC Glucose 113 H 101 H Calcium Pleural Cholesterol 10/03/18 10/03/18 10/03/18 06:56 06:56 08:21 WBC 12.78 H RBC 2.57 L Hgb 7.5 L Hct 24.4 L MCV 94.9 MCH 29.2 MCHC 30.7 L RDW Std Deviation 55.9 H RDW Coeff of Leatha 16.3 H Plt Count 387 MPV 8.4 Immature Gran % (Auto) 0.8 Neut % (Auto) 77.0 Lymph % (Auto) 16.7 Mccormick % (Auto) 5.4 Eos % (Auto) 0.0 Baso % (Auto) 0.1 Immature Gran # (Auto) 0.10 H Neut # (Auto) 9.84 H Lymph # (Auto) 2.14 Mccormick # (Auto) 0.69 H Eos # (Auto) 0.00 Baso # (Auto) 0.01 Hypochromasia Present Basophilic Stippling Occasional Sodium 140 Potassium 4.6 Chloride 108 H Carbon Dioxide 22 Anion Gap 10.0 BUN 28 H Creatinine 1.61 H Est Cr Clr Drug Dosing 64.0 Est GFR ( Amer) 54.6 Est GFR (Non-Af Amer) 47.1 BUN/Creatinine Ratio 17.5 Glucose 117 H POC Glucose 224 H Calcium 8.1 L Pleural Cholesterol 10/03/18 12:03 WBC RBC Hgb Hct MCV MCH MCHC RDW Std Deviation RDW Coeff of Leatha Plt Count MPV Immature Gran % (Auto) Neut % (Auto) Lymph % (Auto) Mccormick % (Auto) Eos % (Auto) Baso % (Auto) Immature Gran # (Auto) Neut # (Auto) Lymph # (Auto) Mccormick # (Auto) Eos # (Auto) Baso # (Auto) Hypochromasia Basophilic Stippling Sodium Potassium Chloride Carbon Dioxide Anion Gap BUN Creatinine Est Cr Clr Drug Dosing Est GFR ( Amer) Est GFR (Non-Af Amer) BUN/Creatinine Ratio Glucose POC Glucose 113 H Calcium Pleural Cholesterol Medications Administered Current Inpatient Medications Acetaminophen (Tylenol) 650 mg PO Q4H PRN PRN Reason: pain/fever Stop: 10/10/18 18:42 Last Admin: 09/15/18 00:08 Dose: 650 mg Albuterol (Duoneb) 3 ml NEB QIDR PRN PRN Reason: Shortness Of Breath Or Wheezin Stop: 10/31/18 19:59 Amlodipine Besylate (Norvasc) 5 mg PO QAM JERSON Stop: 10/31/18 08:59 Last Admin: 10/03/18 08:55 Dose: 5 mg Dextrose (Dextrose 50%) 25 - 50 ml IV UD PRN; Protocol PRN Reason: Hypoglycemia Protocol Stop: 10/15/18 11:08 Diphenhydramine HCl (Benadryl) 25 mg IV Q6 PRN PRN Reason: Itching Stop: 10/22/18 21:08 Last Admin: 10/03/18 16:01 Dose: 25 mg Enoxaparin Sodium (Lovenox) 40 mg SQ PM JERSON Stop: 10/10/18 20:59 Last Admin: 10/02/18 21:30 Dose: 40 mg Glucagon (Glucagen) 1 mg IM UD PRN; Protocol PRN Reason: Hypoglycemia Protocol Stop: 10/15/18 11:08 Glucose (Glucose 40%) 15 - 30 gm PO UD PRN; Protocol PRN Reason: Hypoglycemia Protocol Stop: 10/15/18 11:08 Glucose (Dex4 Glucose) 4 - 8 tabs PO UD PRN; Protocol PRN Reason: Hypoglycemia Protocol Stop: 10/15/18 11:08 Hydromorphone HCl (Dilaudid) 1 mg IV Q4H PRN PRN Reason: Severe Pain Stop: 10/05/18 10:59 Last Admin: 12/27/18 16:01 Dose: 1 mg Methylprednisolone 20 mg/ (Syringe) 0.32 mls @ 1.5 mls/min IV BID [facility] Stop: 11/02/18 20:59 Ceftriaxone Sodium 2,000 mg/ (Dextrose) 70 mls @ 100 mls/hr IV DAILY [facility]; Protocol Stop: 10/10/18 12:59 Last Infusion: 10/03/18 14:38 Dose: Infused Insulin Aspart (Novolog Flexpen) 0 units SC ACHS [facility] Stop: 10/15/18 11:29 Last Admin: 10/03/18 13:50 Dose: Not Given Lactic Acid (Amlactin) 1 gm EXT BID [facility] Stop: 10/16/18 20:59 Last Admin: 10/03/18 13:45 Dose: Not Given Lactobacillus Acidophilus (Floranex) 4 tab PO QIDM [facility] Stop: 10/12/18 16:59 Last Admin: 10/03/18 13:46 Dose: 4 tab Lidocaine (Lidoderm 5%) 2 patch TD HS [facility] Stop: 10/11/18 21:59 Last Admin: 10/02/18 21:29 Dose: Not Given Lorazepam (Ativan) 1 mg PO HS PRN PRN Reason: Insomnia Stop: 10/13/18 19:00 Last Admin: 10/01/18 21:51 Dose: 1 mg Metoprolol Tartrate (Lopressor) 12.5 mg PO BID [facility] Stop: 10/26/18 08:59 Last Admin: 10/03/18 08:56 Dose: 12.5 mg Miscellaneous (Remove Lidoderm Patch) 2 ea N/A QAM [facility] Stop: 10/12/18 08:59 Last Admin: 10/03/18 08:57 Dose: Not Given Miscellaneous (Carbohydrates For Hypoglycemia) 15 - 30 gm PO UD PRN PRN Reason: Hypoglycemia Treatment Stop: 10/15/18 11:08 Last Admin: 09/15/18 16:24 Dose: 15 gm Ondansetron HCl (Zofran) 4 mg IV Q6H PRN PRN Reason: Nausea Stop: 10/10/18 18:42 Last Admin: 09/13/18 08:37 Dose: 4 mg Oxycodone HCl (Roxicodone Immediate Rel) 10 mg PO Q4H PRN PRN Reason: Pain Stop: 10/15/18 14:11 Last Admin: 10/03/18 14:03 Dose: 10 mg Oxycodone HCl (Oxycontin) 30 mg PO Q12H JERSON Stop: 10/16/18 10:59 Last Admin: 10/03/18 10:30 Dose: 30 mg _ (1) Anemia Anemia type: unspecified type Bone marrow failure anemia type: Chronic kidney disease stage: Folate deficiency anemia type: Hemolytic anemia type: Iron deficiency anemia type: Other causes of anemia: Vitamin B12 deficiency anemia type: Qualified Code(s): D64.9 - Anemia, unspecified (2) Septic arthritis Laterality: left Septic arthritis location: knee Septic arthritis organism: due to unspecified organism Qualified Code(s): M00.9 - Pyogenic arthritis, unspecified (3) Cirrhosis, alcoholic Ascites presence: with ascites Qualified Code(s): K70.31 - Alcoholic cirrhosis of liver with ascites (4) Infection associated with internal left knee prosthesis Encounter type: sequela Qualified Code(s): T84.54XS - Infection and inflammatory reaction due to internal left knee prosthesis, sequela (5) Hypertension Hypertension type: essential hypertension Qualified Code(s): I10 - Essential (primary) hypertension (6) Pneumonia Aspiration pneumonia type: Laterality: right Lung location: unspecified part of lung Pneumonia type: due to unspecified organism Qualified Code(s): J18.9 - Pneumonia, unspecified organism
--- NOTE | 2018-10-03 16:58 | Progress Note ---
DATE: 10/03/2018 Mr. Ramon is unchanged clinically. I presented Mr. Ramon at our thoracic conference today. We had a very long discussion about possibilities, and the consensus of the group was that we were probably dealing with a pulmonary infarct. We have no evidence of active infection, but he has been on antibiotics. I believe that the patient is too ill at this point to consider any type of surgical procedure. We did discuss a possible decortication with a possible wedge resection for diagnosis; however, I think he is at high risk, and I would not be in favor of doing this. As he is improving although slowly, I would probably hold off doing anything with his chest at this point. His albumin was only 1.2 the last time it was checked, but he has been eating very well. I would consider checking a prealbumin and/or albumin to see if it is coming up, but I certainly do not think he is ready for any type of decortication. In addition, his pulmonary status is quite stable with 99% saturation on room air. I think physical therapy would be very helpful for this patient given the limitations of his ambulation with a spacer in his left knee. At any rate, we will continue to follow along.
[2018-10-03] MEDS: methylPREDNISolone 20 MG in SYRINGE 0 ML IV SCH (20:59)
[2018-10-03] MEDS: ENOXAPARIN INJ 40 MG/0.4 ML SYR SQ SCH (20:59)
[2018-10-03] MEDS: LIDOCAINE 5% 1 PATCH TD SCH (21:02)
[2018-10-04] MEDS: OXYCODONE HCL IR 5 MG TAB (IMMEDIATE RELEASE) PO PRN ×5 (00:15→23:45)
[2018-10-04] MEDS: HYDROmorphone INJ 1 MG/ML SYRINGE IV PRN ×4 (01:17→16:26)
[2018-10-04] MEDS: DiphenhydrAMINE HCL 50 MG/ML VIAL IV PRN ×4 (05:38→23:46)
[2018-10-04 07:42] LABS: Basophils # (auto) 0.01 K/uL (0-0.2); Basophils % (auto) 0.1 %; Eosinophils # (auto) 0.02 K/uL (0-0.5); Eosinophils % (auto) 0.2 %; Hematocrit (blood only) 24.6 % (42-52); Hemoglobin 7.7 g/dL (14.0-18.0); Immature Granulocytes # (auto) 0.08 K/uL (0.00-0.02); Immature Granulocytes % (auto) 0.7 %; Lymphocytes # (auto) 2.31 K/uL (1.2-3.4); Lymphocytes % (auto) 19.6 %; Mean Corpuscular Hgb Conc 31.3 g/dL (32-36); Mean Corpuscular Volume 94.6 fL (80-100); Mean Platelet Volume 7.8 fL (7.4-10.4); Monocytes # (auto) 0.93 K/uL (0.11-0.59); Monocytes % (auto) 7.9 %; Neutrophils # (auto) 8.42 K/uL (1.4-6.5); Neutrophils % (auto) 71.5 %; Platelet Count 364 K/uL (130-400); RDW Coefficient of Variation 16.6 % (11.5-14.5); RDW Standard Deviation 57.1 fL (36.4-46.3); White Blood Count 11.77 K/uL (4.8-10.8)
[2018-10-04 08:22] LABS: Basophilic Stippling 1+
[2018-10-04 08:25] LABS: Albumin Level 1.8 gm/dl (3.4-5.0); BUN Creatinine Ratio 19.5 (10-20); Calcium 7.9 mg/dl (8.5-10.1); Creatinine Clr Calc Pharmacy 70.1 ml/min; Est GFR (African American) 60.9; Est GFR (Non-African American) 52.6; Potassium 4.9 mmol/L (3.5-5.1)
[2018-10-04 08:28] LABS: Albumin Globulin Ratio 0.4 (0.9-2); Bilirubin,Total 0.2 mg/dl (0.1-1); Total Protein 6.8 gm/dl (6.4-8.2)
[2018-10-04] MEDS: LACTOBACILLUS ACIDOPHILUS (FLORANEX) TAB PO SCH ×4 (09:10→22:18)
[2018-10-04] MEDS: AMLODIPINE BESYLATE 5 MG TAB PO SCH (09:11)
[2018-10-04] MEDS: AMMONIUM LACTATE 12% LOTION 225 GM BTL EXT SCH ×2 (09:11→20:43)
[2018-10-04] MEDS: METOPROLOL TARTRATE 25 MG TAB PO SCH ×2 (09:11→22:19)
[2018-10-04] MEDS: methylPREDNISolone 20 MG in SYRINGE 0 ML IV SCH ×2 (09:13→23:44)
[2018-10-04] MEDS: INSULIN ASPART 100 UNITS/ML 3 ML PEN SC SCH ×4 (09:22→22:07)
[2018-10-04] MEDS: cefTRIAXone SODIUM 2,000 MG in DEXTROSE 5% 50 ML IV SCH (09:25)
[2018-10-04] MEDS: OXYCODONE HCL 15 MG TABCR (OXYCONTIN) PO SCH ×2 (11:10→22:18)
--- NOTE | 2018-10-04 15:25 | Orthopedic Progress Note ---
Date of Service October 04, 2018 Assessment & Plan (1) Septic arthritis: The patient is currently Status post left knee irrigation and debridement , explant of knee prosthesis and placement of antibiotic cement spacer. There is no acute orthopedic intervention indicated at this time. His clinical and diagnostic findings are consistent with recent surgery. I had a detailed conversation with the patient in regards to his current orthopedic problems. I stressed the importance of compliance with treatment for his septic TKA. Failure to do so could result in worsening of his symptoms/infection and subsequently result in loss of limb or loss of life. He is under the care of Dr. Velasco and we will defer his follow up care to his primary surgeon. He will need to follow up with Dr. Velasco, [facility] for all his post operative care. For his current hospital stay, recommend dressings changed PRN, IV abx per medical team/ID, trend inflammatory labs, partial weight bearing LLE, we will order hinged knee brace for him to be worn at all times. In addition, the typical course post operatively for antibiotic cement spacers will require close monitoring by infectious disease and his PCP with a prolonged course of IV abx, sutures be removed at 2 weeks, removal of his antibiotic cement spacer at 6-12 weeks with either placement of new abx spacer vs revision TKA vs knee fusion, all of which should be performed at a tertiary care center. Would avoid narcotic pain medications secondary to past medical history for opiod, etoh and drug abuse. Will order lidoderm patch. Thank you for the consultation. Subjective Patient is resting. Awakens without difficulty. No change in his overall condition. Constitutional: as per Subjective / HPI Physical Exam 2 Vital Signs (Past 24 Hours): Last Vital Signs Temp 37.2 C 10/04/18 14:58 Pulse 71 10/04/18 14:58 Resp 16 10/04/18 14:58 BP 147/83 H 10/04/18 14:58 Pulse Ox 100 10/04/18 14:58 Patient resting comfortably. Knee immobilizer in place left lower extremity. Incision intact. No significant erythema, mild swelling. Pedal pulses present. Feet warm. _ (1) Septic arthritis Laterality: left Septic arthritis location: knee Septic arthritis organism: due to unspecified organism Qualified Code(s): M00.9 - Pyogenic arthritis, unspecified
--- NOTE | 2018-10-04 15:59 | Hospitalist Progress Note ---
Date of Service October 04, 2018 Assessment & Plan (1) Pneumonia: CT chest on 09/18 showed cavitations in right lower lobe, consistent with necrotizing pneumonia. Clinically, the patient has no right sided chest pain. [facility] cultures are as follows: Blood culture on 08/24 was positive for Strep pneumoniae. Repeat blood cultures on 08/31 and 09/03 were negative for any bacteria. Per Dr. Serrano (ID) on 09/27, he will need 6 weeks of antibiotics for his septic arthritis and bacteremia. He did not feel that KIARA was neccesary given his prolonged course of antibiotics. CT-guided lung biopsy on 09/27 has not grown any bacteria. Seen by Dr. Jimenez (pulm) on 09/28 with thought that we still weren't clear what was causing the pneumonia, and that he would need transbronchial biopsy or even VATS. Transbronchial biopsy done on by Dr. Sinclair. - biopsies of lymph nodes show some blood and lymphatic tissue, no malignancy, cultures still pending - Continue vanc/Zosyn breathing room air, no distress, no fever, WBC normal, productive cough with brown sputum appreciate Dr. Sinclair's note, questions whether he has ongoing infection, could be an infarction either way, patient will be on Rocephin for several more weeks which will cover Strep pneumo pneumonia continues to mobilize sputum, pneumonia not affecting breathing at all (2) Infection associated with internal left knee prosthesis: Patient presented complaining of worsening left knee pain. He was hospitalized at [facility] for over a month secondary to an infection of his left knee prosthesis (initially placed in 2007). Synovial culture from grew Gram(+) cocci, presumed to be Strep pneumo, but was too rare to speciate. He then had another surgery on 09/03 with actual knee tissue that showed Gram(+) cocci on Gram stain, but could not grow in culture. Four days prior to this admission (likely on 09/03, but notes are not 100% clear), the prosthesis was removed and replaced with an antibiotic spacer. He then left [facility] AMA due to the desire to be closer to family and home. - At this point, ID recommending 6 weeks of IV abx - change to Rocephin 2gm IV daily, two more weeks would be 6 weeks since surgery on 08/31 patient does not want to go to [place] for surgery, he was only in [place] temporarily when he got this infection he lives in [place], his family is here discussed with Dr. Bourgeois 10/03, he reviewed films, unfortunately he cannot perform revision of the knee he recommends tertiary care discussed with patient, he would be open to going to [place], he again does not want [place] appointment set up for [facility] on 10/15, they can review films and discuss options d/c to [facility] tomorrow to get stronger (3) Septic arthritis: History as above. - Consulted orthopedic surgery - greatly appreciate assistance - Continue abx as above, Rocephin 2gm IV daily follow up with Dr. Serrano on 10/14/18 - Pain control better control after increasing long acting Oxycodone to 30mg q12 from 15mg q12 continue Oxycodone 10mg q4 PRN Dilaudid IV only for breakthrough, patient knows he will not be on Dilaudid after discharge (4) Cirrhosis, alcoholic: New diagnosis, patient with cirrhotic morphology of liver on CT scan on . He has ascites on exam, peripheral edema, and albumin was very low at 1.0. History of heavy drinking and HCV Ab was positive, though no HCV RNA on 09/22. - Hold on inpatient GI consult since he is compensated, should be referred to GI on discharge referral can wait for the time being since he appears to be compensated he is eating well he has been sober for almost 8 weeks since he has been hospitalized he is done drinking (5) BISHOP (acute kidney injury): Baseline Cr ~0.9. Cr. persistently high at 1.7-1.8. Thought that this is ATN from infection and not necessarily from infectious glomerulonephritis. - Continue to follow - Appreciate nephrology consultation, they ave signed off Cr is 1.47, making adequate urine, choi pulled on 10/02, no issues urinating appears that BISHOP is nearly resolved (6) History of intravenous drug abuse: remote history, nothing recent (7) Hypertension: BP high-normal while inpatient, 140/170/80-100. - On metoprolol 12.5mg PO BID - Added amlodipine 5mg PO daily on 09/30 - As of 10/01, BP improving slightly; will increase Norvasc to 10mg qAM (8) Anemia: Baseline hgb ~10-11. Currently ~7.5-8.0. B12, folate were normal on . Ferritin elevated on the same day. No signs of active bleeding. Likely from malnutrition, cirrhosis, and alcohol abuse. - Continue PPI for gastric protection - Continue to follow, Hb 7.7 today (9) DVT prophylaxis: Lovenox 40mg subcut daily (10) Depression: patient is frustrated about current disposition he has been in a hospital for two months now, unable to get up independently patient denies suicidal ideation, just feels frustrated certainly mood improved when discussing going to rehab, he feels hopeful and is energized hold on starting any SSRIs as he is in better mood today Subjective patient excited about going to [facility] tomorrow he is looking forward to getting stronger discussed plan with Dr. Winkler at [facility] nurse navigator made appointment with [facility]an on 10/15 patient has appointment with Dr. Serrano on 10/14 he is eating well reviewed labs, Hb 7.7 albumin rising at 1.8 Cr trending down to 1.4 Review of Systems All systems reviewed & are unremarkable except as noted in HPI & below Musculoskeletal: + back pain and + joint pain (left knee) Physical Exam 2 Vital Signs (Past 24 Hours): Last Vital Signs Temp 37.2 C 10/04/18 14:58 Pulse 71 10/04/18 14:58 Resp 16 10/04/18 14:58 BP 147/83 H 10/04/18 14:58 Pulse Ox 100 10/04/18 14:58 Constitutional: WD/WN, vitals as above Eyes: PERRL, conjunctivae normal, anicteric sclerae ENMT: external ear and nose normal, oropharynx normal Neck: trachea midline, no thyromegaly Respiratory: normal respiratory effort, lungs clear to auscultation Cardiovascular: RRR, no murmur, no edema Gastrointestinal (Abdomen): normal bowel sounds, soft, nontender, no hepatosplenomegaly Musculoskeletal: Head/Neck/Chest: normocephalic and head atraumatic Extremities: + limited ROM of extremities (left knee) and + joint enlargement ( left knee) Skin: no rashes, warm and dry Neurologic: patellar DTR's 2+ bilat, sensation intact and PERRL, EOMI, accommodation nl, no face palsy, no dysarthria Psychiatric: Orientation: alert and oriented x 3 Mood: + depressed mood Lymphatic: no cervical or axillary lymphadenopathy Results & Data Laboratory Results Laboratory Results - last 24 hr 09/20/18 10/03/18 10/03/18 Unknown 17:06 20:41 WBC RBC Hgb Hct MCV MCH MCHC RDW Std Deviation RDW Coeff of Leatha Plt Count MPV Immature Gran % (Auto) Neut % (Auto) Lymph % (Auto) [place] % (Auto) Eos % (Auto) Baso % (Auto) Immature Gran # (Auto) Neut # (Auto) Lymph # (Auto) [place] # (Auto) Eos # (Auto) Baso # (Auto) Basophilic Stippling Sodium Potassium Chloride Carbon Dioxide Anion Gap BUN Creatinine Est Cr Clr Drug Dosing Est GFR ( Amer) Est GFR (Non-Af Amer) BUN/Creatinine Ratio Glucose POC Glucose 194 H 145 H Calcium Total Bilirubin AST ALT Alkaline Phosphatase Total Protein Albumin Globulin Albumin/Globulin Ratio Pleural Lipase 5.0 Pleural Cholesterol SEE NOTE 10/04/18 10/04/18 10/04/18 07:21 07:21 08:18 WBC 11.77 H RBC 2.60 L Hgb 7.7 L Hct 24.6 L MCV 94.6 MCH 29.6 MCHC 31.3 L RDW Std Deviation 57.1 H RDW Coeff of Leatha 16.6 H Plt Count 364 MPV 7.8 Immature Gran % (Auto) 0.7 Neut % (Auto) 71.5 Lymph % (Auto) 19.6 [place] % (Auto) 7.9 Eos % (Auto) 0.2 Baso % (Auto) 0.1 Immature Gran # (Auto) 0.08 H Neut # (Auto) 8.42 H Lymph # (Auto) 2.31 [place] # (Auto) 0.93 H Eos # (Auto) 0.02 Baso # (Auto) 0.01 Basophilic Stippling 1+ Sodium 140 Potassium 4.9 Chloride 109 H Carbon Dioxide 23 Anion Gap 9.0 BUN 29 H Creatinine 1.47 H Est Cr Clr Drug Dosing 70.1 Est GFR ( Amer) 60.9 Est GFR (Non-Af Amer) 52.6 BUN/Creatinine Ratio 19.5 Glucose 72 POC Glucose 85 Calcium 7.9 L Total Bilirubin 0.2 AST 13 L ALT 40 Alkaline Phosphatase 102 Total Protein 6.8 Albumin 1.8 L Globulin 5.0 H Albumin/Globulin Ratio 0.4 L Pleural Lipase Pleural Cholesterol 10/04/18 12:11 WBC RBC Hgb Hct MCV MCH MCHC RDW Std Deviation RDW Coeff of Leatha Plt Count MPV Immature Gran % (Auto) Neut % (Auto) Lymph % (Auto) [place] % (Auto) Eos % (Auto) Baso % (Auto) Immature Gran # (Auto) Neut # (Auto) Lymph # (Auto) [place] # (Auto) Eos # (Auto) Baso # (Auto) Basophilic Stippling Sodium Potassium Chloride Carbon Dioxide Anion Gap BUN Creatinine Est Cr Clr Drug Dosing Est GFR ( Amer) Est GFR (Non-Af Amer) BUN/Creatinine Ratio Glucose POC Glucose 93 Calcium Total Bilirubin AST ALT Alkaline Phosphatase Total Protein Albumin Globulin Albumin/Globulin Ratio Pleural Lipase Pleural Cholesterol Medications Administered Current Inpatient Medications Acetaminophen (Tylenol) 650 mg PO Q4H PRN PRN Reason: pain/fever Stop: 10/10/18 18:42 Last Admin: 09/15/18 00:08 Dose: 650 mg Albuterol (Duoneb) 3 ml NEB QIDR PRN PRN Reason: Shortness Of Breath Or Wheezin Stop: 10/31/18 19:59 Amlodipine Besylate (Norvasc) 5 mg PO QAM JERSON Stop: 10/31/18 08:59 Last Admin: 10/04/18 09:11 Dose: 5 mg Dextrose (Dextrose 50%) 25 - 50 ml IV UD PRN; Protocol PRN Reason: Hypoglycemia Protocol Stop: 10/15/18 11:08 Diphenhydramine HCl (Benadryl) 25 mg IV Q6 PRN PRN Reason: Itching Stop: 10/22/18 21:08 Last Admin: 10/04/18 11:10 Dose: 25 mg Enoxaparin Sodium (Lovenox) 40 mg SQ PM JERSON Stop: 10/10/18 20:59 Last Admin: 10/03/18 20:59 Dose: 40 mg Glucagon (Glucagen) 1 mg IM UD PRN; Protocol PRN Reason: Hypoglycemia Protocol Stop: 10/15/18 11:08 Glucose (Glucose 40%) 15 - 30 gm PO UD PRN; Protocol PRN Reason: Hypoglycemia Protocol Stop: 10/15/18 11:08 Glucose (Dex4 Glucose) 4 - 8 tabs PO UD PRN; Protocol PRN Reason: Hypoglycemia Protocol Stop: 10/15/18 11:08 Hydromorphone HCl (Dilaudid) 1 mg IV Q12 PRN PRN Reason: Severe Pain Stop: 10/18/18 15:56 Methylprednisolone 20 mg/ (Syringe) 0.32 mls @ 1.5 mls/min IV BID [facility] Stop: 11/02/18 20:59 Last Admin: 10/04/18 09:13 Dose: 1.5 mls/min Ceftriaxone Sodium 2,000 mg/ (Dextrose) 70 mls @ 100 mls/hr IV DAILY [facility]; Protocol Stop: 10/10/18 12:59 Last Infusion: 10/04/18 10:24 Dose: 100 mls/hr Insulin Aspart (Novolog Flexpen) 0 units SC ACHS [facility] Stop: 10/15/18 11:29 Last Admin: 10/04/18 12:46 Dose: Not Given Lactic Acid (Amlactin) 1 gm EXT BID [facility] Stop: 10/16/18 20:59 Last Admin: 10/04/18 09:11 Dose: 1 gm Lactobacillus Acidophilus (Floranex) 4 tab PO QIDM [facility] Stop: 10/12/18 16:59 Last Admin: 10/04/18 12:46 Dose: Not Given Lidocaine (Lidoderm 5%) 2 patch TD HS [facility] Stop: 10/11/18 21:59 Last Admin: 10/03/18 21:02 Dose: Not Given Lorazepam (Ativan) 1 mg PO HS PRN PRN Reason: Insomnia Stop: 10/13/18 19:00 Last Admin: 10/01/18 21:51 Dose: 1 mg Metoprolol Tartrate (Lopressor) 12.5 mg PO BID [facility] Stop: 10/26/18 08:59 Last Admin: 10/04/18 09:11 Dose: 12.5 mg Miscellaneous (Remove Lidoderm Patch) 2 ea N/A QAM [facility] Stop: 10/12/18 08:59 Last Admin: 10/04/18 09:13 Dose: Not Given Miscellaneous (Carbohydrates For Hypoglycemia) 15 - 30 gm PO UD PRN PRN Reason: Hypoglycemia Treatment Stop: 10/15/18 11:08 Last Admin: 09/15/18 16:24 Dose: 15 gm Ondansetron HCl (Zofran) 4 mg IV Q6H PRN PRN Reason: Nausea Stop: 10/10/18 18:42 Last Admin: 09/13/18 08:37 Dose: 4 mg Oxycodone HCl (Roxicodone Immediate Rel) 10 mg PO Q4H PRN PRN Reason: Pain Stop: 10/15/18 14:11 Last Admin: 10/04/18 11:11 Dose: 10 mg Oxycodone HCl (Oxycontin) 30 mg PO Q12H JERSON Stop: 10/16/18 10:59 Last Admin: 10/04/18 11:10 Dose: 30 mg _ (1) Anemia Anemia type: unspecified type Bone marrow failure anemia type: Chronic kidney disease stage: Folate deficiency anemia type: Hemolytic anemia type: Iron deficiency anemia type: Other causes of anemia: Vitamin B12 deficiency anemia type: Qualified Code(s): D64.9 - Anemia, unspecified (2) Septic arthritis Laterality: left Septic arthritis location: knee Septic arthritis organism: due to unspecified organism Qualified Code(s): M00.9 - Pyogenic arthritis, unspecified (3) Cirrhosis, alcoholic Ascites presence: with ascites Qualified Code(s): K70.31 - Alcoholic cirrhosis of liver with ascites (4) Infection associated with internal left knee prosthesis Encounter type: sequela Qualified Code(s): T84.54XS - Infection and inflammatory reaction due to internal left knee prosthesis, sequela (5) Hypertension Hypertension type: essential hypertension Qualified Code(s): I10 - Essential (primary) hypertension (6) Pneumonia Aspiration pneumonia type: Laterality: right Lung location: unspecified part of lung Pneumonia type: due to unspecified organism Qualified Code(s): J18.9 - Pneumonia, unspecified organism
[2018-10-04] MEDS ORDERED: HYDROmorphone INJ 1 MG/ML SYRINGE IV SCH (16:00)
[2018-10-04] MEDS: LIDOCAINE 5% 1 PATCH TD SCH (20:43)
[2018-10-04] MEDS: ENOXAPARIN INJ 40 MG/0.4 ML SYR SQ SCH (22:20)
[2018-10-04] MEDS: LORazepam 1 MG TAB PO PRN (23:56)
[2018-10-05] MEDS: HYDROmorphone INJ 1 MG/ML SYRINGE IV PRN ×2 (05:01→07:08)
[2018-10-05] MEDS: OXYCODONE HCL IR 5 MG TAB (IMMEDIATE RELEASE) PO PRN ×3 (05:08→14:01)
[2018-10-05 06:55] LABS: Creatinine Clr Calc Pharmacy 76.3 ml/min; Est GFR (African American) 67.5; Est GFR (Non-African American) 58.3
[2018-10-05] MEDS: DiphenhydrAMINE HCL 50 MG/ML VIAL IV PRN ×2 (07:14→15:19)
[2018-10-05] MEDS: cefTRIAXone SODIUM 2,000 MG in DEXTROSE 5% 50 ML IV SCH (08:09)
[2018-10-05] MEDS: methylPREDNISolone 20 MG in SYRINGE 0 ML IV SCH (08:10)
[2018-10-05] MEDS: LACTOBACILLUS ACIDOPHILUS (FLORANEX) TAB PO SCH ×2 (08:11→12:19)
[2018-10-05] MEDS: AMLODIPINE BESYLATE 5 MG TAB PO SCH (08:11)
[2018-10-05] MEDS: METOPROLOL TARTRATE 25 MG TAB PO SCH (08:11)
[2018-10-05] MEDS: AMMONIUM LACTATE 12% LOTION 225 GM BTL EXT SCH (08:12)
[2018-10-05] MEDS: INSULIN ASPART 100 UNITS/ML 3 ML PEN SC SCH ×2 (09:15→12:20)
[2018-10-05] MEDS: OXYCODONE HCL 15 MG TABCR (OXYCONTIN) PO SCH (10:41)
[2018-10-05] MEDS ORDERED: OXYCODONE HCL IR 5 MG TAB (IMMEDIATE RELEASE) PO ONE (13:45)
--- NOTE | 2018-10-05 14:46 | Discharge Summary ---
Date of Service October 05, 2018 Admission HPI Per Admitting Provider Patient is a 58-year-old -Sudanese male with history of hypertension, former IV heroin and alcohol abuse and borderline diabetes presenting with knee pain. History obtained through review of chart as patient is somnolent during exam after receiving Ativan. Patient presents today complaining of worsening left knee pain. He reports that he was hospitalized at [facility] for over a month secondary to an infection of his left knee prosthesis (initially placed in 2007). Patient reports multiple revisions to his left knee. Reports that 4 days ago the prosthesis was removed and replaced with an antibiotic spacer. Patient left [facility] last evening due to the desire to be closer to family and home. He reports that he took a bus here. On arrival patient was found to be afebrile and hemodynamically stable. He was complaining of abdominal pain and distention as well as nausea. Also complaining of back pain, bowel incontinence and numbness of his legs that has been present since being admitted to [place]. ER course: Ativan 1 mg, Ativan 2 mg, Zosyn, vancomycin Admission Exam Per Admitting Provider General: patient somnolent, arousable, does not answer questions appropriately , follows simple commands. NAD, chronically ill in appearance poorly kempt Skin: Dry, flaking, no rashes or lesions HEENT: NC/AT, pupils small and reactive, anicteric sclera, conjunctiva without injection, external ear normal to inspection and nontender, nares patent, dry mucus membranes, poor dentition, no oropharyngeal lesions, neck supple, trachea midline, no LAD, no thyromegaly, no JVD Heart: +S1/S2, regular, no m/r/g Lungs: Poor compliance with exam, equal air entry bilaterally, no rales/rhonchi/ wheezes Abd: +BS, soft, NT/ND, no masses/organomegaly/ascites, Diop catheter in place with 1 L of pink urine Ext: warm, 2+ pulses in UE/LE bilaterally, 2+ nonpitting edema bilateral lower extremities, left knee with dressing in place, clean/dry/intact Neuro: Exam limited secondary to cognitive status after receiving Ativan. Patient grossly nonfocal, speech garbled, no facial droop, moving all extremities on command with equal strength 5/5 Principal Diagnosis Infected left knee prosthesis, streptococcus pneumoniae Discharge Exam Constitutional WD/WN, vitals as above Eyes PERRL, conjunctivae normal, anicteric sclerae ENMT external ear and nose normal, oropharynx normal Neck trachea midline, no thyromegaly Respiratory normal respiratory effort and + cough; no respiratory distress and no labored breathing Auscultation: + rhonchi (right side) Cardiovascular RRR, no murmur, no edema Gastrointestinal (Abdomen) normal bowel sounds, soft, nontender, no hepatosplenomegaly Musculoskeletal Head/Neck/Chest: normocephalic and head atraumatic Extremities: + limited ROM of extremities (left knee) and + joint enlargement ( left knee) Skin no rashes, warm and dry Neurologic patellar DTR's 2+ bilat, sensation intact and PERRL, EOMI, accommodation nl, no face palsy, no dysarthria Psychiatric A+Ox3, euthymic affect Lymphatic no cervical or axillary lymphadenopathy Discharge Data Allergies Allergy/AdvReac Type Severity Reaction Status Date / Time No Known Allergies Allergy Verified 09/10/18 06:28 Consultations 09/10/18 12:11 ED Decision to Admit Stat 09/10/18 18:43 Consult Case Management - Discharge Planning Routine Consult Orthopedic Surgery Routine 09/12/18 08:37 Consult Infectious Diseases Routine 09/12/18 15:57 Consult Health Information Management Routine 09/20/18 07:51 Consult Pulmonology Routine 09/22/18 11:33 Consult Nephrology Routine 09/23/18 16:07 Consult Cardiology Routine 09/26/18 14:23 Consult Thoracic Surgery Routine 09/27/18 09:01 Consult Radiology Routine Procedures Performed Operation Date: 09/24/18 10:00 Actual Procedures p Bronchoscopy(Bilateral) - Francois Sanches MD Operation Date: 09/30/18 07:30 Actual Procedures p Endobronchial Ultrasound with Biopsies(Not Applicable) - Gilberto Sinclair MD , FACS Ordered Studies 09/10/18 11:05 MR lumbar spine wo con Stat 09/18/18 12:52 CT abd pelvis wo con Routine CT chest wo con Routine 09/20/18 15:39 CT chest wo con Routine 09/24/18 15:56 US venous doppler LE RT Routine 09/27/18 CT guided FNA Routine CT limited or localized study Routine 09/27/18 09:03 CT guided needle placement Routine 09/27/18 11:18 CT chest wo con Routine Hospital Course (1) Pneumonia: CT chest on 09/18 showed cavitations in right lower lobe, consistent with necrotizing pneumonia. Clinically, the patient has no right sided chest pain. [facility] cultures are as follows: Blood culture on 08/24 was positive for Strep pneumoniae. Repeat blood cultures on 08/31 and 09/03 were negative for any bacteria. Per Dr. Serrano (ID) on 09/27, he will need 6 weeks of antibiotics for his septic arthritis and bacteremia. He did not feel that KIARA was neccesary given his prolonged course of antibiotics. CT-guided lung biopsy on 09/27 has not grown any bacteria. Seen by Dr. Jimenez (pulm) on 09/28 with thought that we still weren't clear what was causing the pneumonia, and that he would need transbronchial biopsy or even VATS. Transbronchial biopsy done on by Dr. Sinclair. - biopsies of lymph nodes show some blood and lymphatic tissue, no malignancy, cultures still pending - Continue Rocephin 2gm IV daily breathing room air, no distress, no fever, WBC normal, productive cough with clear sputum, clearing up, was brown appreciate Dr. Sinclair's note, questions whether he has ongoing infection, could be an infarction either way, patient will be on Rocephin for several more weeks which will cover Strep pneumo pneumonia continues to mobilize sputum, pneumonia not affecting breathing at all (2) Infection associated with internal left knee prosthesis: Patient presented complaining of worsening left knee pain. He was hospitalized at [facility] for over a month secondary to an infection of his left knee prosthesis (initially placed in 2007). Synovial culture from grew Gram(+) cocci, presumed to be Strep pneumo, but was too rare to speciate. He then had another surgery on 09/03 with actual knee tissue that showed Gram(+) cocci on Gram stain, but could not grow in culture. Four days prior to this admission (likely on 09/03, but notes are not 100% clear), the prosthesis was removed and replaced with an antibiotic spacer. He then left [facility] AMA due to the desire to be closer to family and home. - At this point, ID recommending 6 weeks of IV abx - change to Rocephin 2gm IV daily, today is 5 weeks of IV antibiotics since PICC line in left upper extremity placed on 10/05 patient does not want to go to [place] for surgery, he was only in [place] temporarily when he got this infection he lives in [place], his family is here discussed with Dr. Bourgeois 10/03, he reviewed films, unfortunately he cannot perform revision of the knee he recommends tertiary care discussed with patient, he would be open to going to [place], he again does not want [place] appointment set up for [facility] on 10/15, they can review films and discuss options d/c to [facility] today to get stronger (3) Septic arthritis: History as above. - Consulted orthopedic surgery - greatly appreciate assistance - Continue abx as above, Rocephin 2gm IV daily follow up with Dr. Serrano on 10/14/18 - Pain control better control after increasing long acting Oxycodone to 30mg q12 from 15mg q12 continue Oxycodone 10mg q4 PRN Dilaudid discontinued (4) Cirrhosis, alcoholic: New diagnosis, patient with cirrhotic morphology of liver on CT scan on . He has ascites on exam, peripheral edema, and albumin was very low at 1.0. History of heavy drinking and HCV Ab was positive, though no HCV RNA on 09/22. - Hold on inpatient GI consult since he is compensated, should be referred to GI on discharge referral can wait for the time being since he appears to be compensated he is eating well he has been sober for almost 8 weeks since he has been hospitalized he is done drinking Albumin up to 1.8 with patient eating more protein (5) BISHOP (acute kidney injury): Baseline Cr ~0.9. Cr. persistently high at 1.7-1.8. Thought that this is ATN from infection and not necessarily from infectious glomerulonephritis. - Continue to follow - Appreciate nephrology consultation, they ave signed off Cr is 1.3, making adequate urine, diop pulled on 10/02, no issues urinating appears that BISHOP is resolved (6) History of intravenous drug abuse: remote history of Heroin use (7) Hypertension: BP high-normal while inpatient, 140/170/80-100. - On metoprolol 12.5mg PO BID - Added amlodipine 5mg PO daily on 09/30 - As of 10/01, BP improving slightly; will increase Norvasc to 10mg qAM (8) Anemia: Baseline hgb ~10-11. Currently ~7.5-8.0. B12, folate were normal on . Ferritin elevated on the same day. No signs of active bleeding. Likely from malnutrition, cirrhosis, and alcohol abuse. - Continue PPI for gastric protection - Continue to follow, Hb 7.7 on last check (9) DVT prophylaxis: Lovenox 40mg subcut daily (10) Depression: patient is frustrated about current disposition he has been in a hospital for two months now, unable to get up independently patient denies suicidal ideation, just feels frustrated certainly mood improved when discussing going to rehab, he feels hopeful and is energized hold on starting any SSRIs as he is in better mood today Total Time Total Time Spent Total Time Spent (In Minutes): 60 minutes Total Time Includes: Examination of the Patient, Discharge Planning, Medication Reconciliation and Communication With Other Providers Discharge Plan Discharge Items Patient Disposition: Transfer Inpatient Rehab Fac Reason For Visit: LEFT KNEE INFFECTION? Discharge Diagnosis: Infected left knee prosthesis, s/p cement spacer Strep pneumo bacteremia, right sided pneumonia Cirrhosis, BISHOP, h/o alcohol abuse Condition: Fair Discharge Goals: Improve function, Increase independence and Specific goals Specific Goals: follow up with [facility] at [place] Lifting: None Bathing: Keep incision dry Exercise/Sports: Gradually increase as tolerated Weightbearing: Left partial Weightbearing Comment: hinged knee brace on left to be worn at all times Non-emergency contact: Primary Care Provider Call non-emergency contact if: you have any medication questions, your symptoms worsen, your pain is worsening and you have a fever Follow-up/Referrals: Sen Serrano MD [Physician] - 10/14/18 11:30 am (Please, follow up with Dr. Serrano (infectious disease specialist) on SundayOctober 14 at 11:30 am. *This office is located in [address] of [facility] - big building next to this hospital. If you need to change this appointment, call the office at [phone].) Freddie Baldwin M.D. [Staff Physician] - 10/15/18 1:00 pm (Please, follow up at [facility] [place] with Dr. Freddie Baldwin' assistant tennis coach, Lauren Shearer PA-C, on SundayOctober 15 at 1:00 pm. *This office is located at [address] in [place]. USE ENTRANCE "B" AND GO TO [address] If you have any questions or need to reschedule this appointment, call the office at [phone].) Diet: Regular Addtl Provider Instructions: Medications: patient was not previously taking medications - ROCEPHIN: 2gm IV daily for 4 weeks, may need long but will be determined by Dr. Serrano - NORVASC: 10mg daily, started for blood pressure control, tolerating well - METOPROLOL: 12.5mg BID, tolerating well, cannot take more due to HR in 60s - ATIVAN: use as needed for insomnia, sleeps only 3 hours at a time - OXYCODONE: 30mg twice a day at 11am and 11pm, rapid acting as needed every 4 hours - TYLENOL and BENADRYL as needed - PREDNISONE: treatment for lungs, per pulmonary, taper as follows 40mg daily x 7 days, 20mg daily x 7 days, 10mg daily x 8 days Left prosthetic knee infection on 08/31 he had removal of old knee replacement, placement of cement spacer this was done at [facility] patient left [facility] and came here, he lives in [place] ID recommends 6-12 weeks of IV antibiotics, Rocephin 2gm IV daily 10/05 will be 5 weeks of treatment total left leg partial weight bearing, hinged knee brace at all times jitendra were removed during admission follow up with Dr. Serrano on 10/14/18 follow up with [facility] on 10/15/18 for opinion on surgery ultimately he would need a new abx spacer or revision of knee replacement Right sided pneumonia, possible necrotizing treat for strep pneumo evaluated with bronchoscopy and EBUS no evidence of malignancy on biopsy has a productive cough negative for HIV, no fungal infection breathing room air the entire admission, never once in distress Cirrhosis, alcoholic cirrhotic morphology of liver on CT scan was drinking heavily prior to admission to [place] 8 weeks ago 8 weeks sober at this point, feels a lot better albumin was 0.9 on admission, he is eating a lot of protein, up to 1.8 today mild ascites on exam would refer to GI as outpatient eventually but this can be deferred HTN: started on Norvasc and metoprolol during admission, tolerating well, BP better Anemia: no evidence of bleeding, likely due to malnutrition and bone marrow toxicity from alcohol Hb is 7.7, ranges between 7.5 and 8.5 would check once a week BISHOP: Cr reached levels above 2, but trending down steadily over past 10 days Cr is 1.4 likely cause was due to infection, no evidence specifically for glomerulonephritis nephrology signed off the case making adequate urine Plan: needs to work on strength and mobility patient says he is excited about rehab, has renewed hope he has been hesitant to work with therapists here because he was afraid to fall says he will feel much better at [facility] he knows this is his one chance to make a meaningful recovery Prescriptions: New acetaminophen [Mapap (acetaminophen)] 325 mg Tablet 650 mg PO Q4H PRN (Reason: fever or pain) 30 Days Qty: 60 RF: 2 amlodipine [Norvasc] 5 mg Tablet 10 mg PO QAM 30 Days Qty: 60 RF: 3 lorazepam 1 mg Tablet 1 mg PO HS PRN (Reason: insomnia) 30 Days Qty: 30 RF: 0 oxycodone 5 mg Tablet 10 mg PO Q4H PRN (Reason: pain) 14 Days Qty: 84 RF: 0 metoprolol tartrate 25 mg Tablet 12.5 mg PO BID 30 Days Qty: 30 RF: 3 oxycodone [OxyContin] 15 mg Tablet,Oral Only,Ext.Rel.12 Hr 30 mg PO Q12H 14 Days Qty: 56 RF: 0 ceftriaxone 2 gram recon soln 2 gm IV DAILY 28 Days Qty: 28 RF: 0 diphenhydramine HCl [Benadryl Allergy] 25 mg tablet 25 mg PO Q8H PRN (Reason: itching) Qty: 30 RF: 0 prednisone 20 mg tablet 40 mg PO UD 21 Days Qty: 25 RF: 0 No Action Unobtainable RF: 0 Stand-Alone Forms: [facility] Discharge Orders: Discharge Order (Routine); Ordered 10/05/18 Ordered By: Barry Hernandez Skilled Items Patient informed of condition?: Yes DNR: No Discharge Level of Care: Acute rehab Communicable Disease: No Discharge Prognosis: Improving Admission Data Admit Date/Time: 09/10/18 17:02 Attending Provider: Barry Hernandez Admit Provider: Estella Loja Primary Care Provider: Meli Vásquez Other Providers: Barry Hernandez ; Larry Bashir ; Estella Loja ; Stefan Castillo ; Saeed Roger ; Tomás Espana ; Karina Jones ; David Alvarez ; Beba Orellana ; Silvano Sanders ; Óscar Smith ; Efren Ge ; Uli Madison ; Antonio Alba Jr ; Efren Tay ; Mike Camarena. ; Uli Madrigal ; Bernard Burns ; Glen Henley ; Etienne Bourgeois ; Wilbur Elias ; Thom Meyers ; Khris Morejon ; Shawn Young ; Beba Tubbs ; Chad Brown ; Jeremiah Ochoa ; Francisco Mallory ; Mikey Enrique ; Sen Serrano ; Babatunde Monson ; Willem Pozo ; Jamey Otero ; Jerrod Sr ; Francois Henao ; Freddie Faye ; Hernandez Cole JR ; Jerrod Roche ; Karina Salas ; Meche Rahman ; Uli Agrawal ; Uli Dumont ; Bucky Clement. ; Antonio Burnette ; Mikey Vilaltoro. ; Meli Spencer. ; Chapis Aguillon. ; Gilberto Sinclair ; Meche Hairston ; Taylor Mae ; Ian Elder ; Edgard Klein ; David Anne ; Philippe Dixon ; Angel Camarena ; Efren Lizarraga ; Thom Mistry ; Thom Dyer ; Fe Fraser ; Juan Panda ; Stefan Watkins ; Celia Ruiz ; Tyrell Rojas ; Simran Blancas ; Antonio Ferrer ; Angel Chan ; Bernard Romero ; Francisco Feliciano ; Deepak Patterson. ; Davian Galvan. ; Demarco Root ; Murray Cleveland ; Mati Flaherty Service: Surgical Services Other Interventions: Discharge Summary Assessment (RN) Last Done: 10/05/18 13:27 Pending Studies at Discharge: No
--- NOTE | 2018-10-16 10:01 | CT Scan Report ---
CT-GUIDED FINE-NEEDLE ASPIRATION HISTORY: Right lung cavitary lesion. Pleural fluid collection. PROCEDURE: The risks, benefits, and alternatives to a CT-guided fine-needle aspiration/drainage of a pleural fluid collection were discussed with the patient and written informed consent was obtained. P reliminary imaging of the right lung/pleural abnormality was performed to determine a safe needle int o site. 1% lidocaine was used for local anesthesia. A single pass using a 20-gauge x 3 1/2 in. spinal needle was made into the right pleural fluid collection. A total of 10 cc of blood products was aspi rated. This was given to the on-site eye clinic manager who determined blood within the sample. No braydon pus was identified. Therefore, a drainage catheter was not placed and no additional aspiration was reques eric by the on-site ordering physician. Post procedure imaging showed no immediate complication. The p atient tolerated the procedure well. The patient was transported back to the floor in stable [facility] n. IMPRESSION: CT-guided fine needle aspiration of a right pleural/lung cavitary abnormality with specimen sent to c ytology and microbiology at the request of the ordering physician. Electronically signed by: Angel Camarena M.D. 09/27/2018 12:22 PM
--- NOTE | 2018-10-16 10:01 | CT Scan Report ---
CT-GUIDED FINE-NEEDLE ASPIRATION HISTORY: Right lung cavitary lesion. Pleural fluid collection. PROCEDURE: The risks, benefits, and alternatives to a CT-guided fine-needle aspiration/drainage of a pleural fluid collection were discussed with the patient and written informed consent was obtained. P reliminary imaging of the right lung/pleural abnormality was performed to determine a safe needle int o site. 1% lidocaine was used for local anesthesia. A single pass using a 20-gauge x 3 1/2 in. spinal needle was made into the right pleural fluid collection. A total of 10 cc of blood products was aspi rated. This was given to the on-site toll collector who determined blood within the sample. No braydon pus was identified. Therefore, a drainage catheter was not placed and no additional aspiration was reques eric by the on-site ordering physician. Post procedure imaging showed no immediate complication. The p atient tolerated the procedure well. The patient was transported back to the floor in stable [facility] n. IMPRESSION: CT-guided fine needle aspiration of a right pleural/lung cavitary abnormality with specimen sent to c ytology and microbiology at the request of the ordering physician. Electronically signed by: Angel Camarena M.D. 09/27/2018 12:22 PM
== END 2018-10-05 16:30 | DRG 167 ==
LOC: ED 05:59 → SUATTDRO 17:02 → 2N 17:02 → 3N 10-02 22:33

== ENCOUNTER 2018-10-08 13:28 | Inpatient (IN) ==
[2018-10-08] MEDS ORDERED: HYDROmorphone INJ 1 MG/ML SYRINGE IV STA (13:47)
[2018-10-08] MEDS ORDERED: LORazepam 1 MG/2 ML VIAL IV STA (13:47)
[2018-10-08] MEDS ORDERED: DiphenhydrAMINE HCL 50 MG/ML VIAL IV STA (13:54)
[2018-10-08] MEDS ORDERED: DiphenhydrAMINE HCL 50 MG/ML VIAL ONE (13:57)
[2018-10-08 14:55] LABS: Basophils # (auto) 0.01 K/uL (0-0.2); Basophils % (auto) 0.1 %; Eosinophils # (auto) 0.01 K/uL (0-0.5); Eosinophils % (auto) 0.1 %; Hematocrit (blood only) 23.5 % (42-52); Hemoglobin 7.5 g/dL (14.0-18.0); Immature Granulocytes # (auto) 0.04 K/uL (0.00-0.02); Immature Granulocytes % (auto) 0.3 %; Lymphocytes % (auto) 6.6 %; Mean Corpuscular Hgb Conc 31.9 g/dL (32-36); Mean Corpuscular Volume 95.1 fL (80-100); Mean Platelet Volume 7.9 fL (7.4-10.4); Monocytes # (auto) 0.25 K/uL (0.11-0.59); Monocytes % (auto) 2.1 %; Neutrophils # (auto) 10.99 K/uL (1.4-6.5); Neutrophils % (auto) 90.8 %; Platelet Count 285 K/uL (130-400); RDW Coefficient of Variation 17.6 % (11.5-14.5); RDW Standard Deviation 61.5 fL (36.4-46.3); Red Blood Count 2.47 M/uL (4.7-6.1)
[2018-10-08 15:04] LABS: INR 1.1 (0.9-1.1); Partial Thromboplastin Time 25.4 Seconds (21.0-31.0); Prothrombin Time 10.8 Seconds (9.0-12.0)
[2018-10-08 15:12] LABS: Albumin Level 2.1 gm/dl (3.4-5.0); BUN Creatinine Ratio 20.7 (10-20); Creatinine Clr Calc Pharmacy 72.9 ml/min; Est GFR (African American) 61.4; Potassium 5.2 mmol/L (3.5-5.1)
[2018-10-08 15:15] LABS: Albumin Globulin Ratio 0.4 (0.9-2); Bilirubin,Total 0.2 mg/dl (0.2-1); Globulin 5.2 gm/dl (2.5-4.0); Total Protein 7.3 gm/dl (6.4-8.2)
[2018-10-08 15:18] LABS: Hypochromasia Present
[2018-10-08] MEDS ORDERED: fentaNYL citrate 100 MCG/2 ML VIAL IV STA (15:28)
[2018-10-08] MEDS ORDERED: OPTIRAY 320 125ml IV PRN (17:21)
[2018-10-08] MEDS ORDERED: VANCOMYCIN CONSULT ACTIVE PRN (17:40)
[2018-10-08] MEDS ORDERED: VANCOMYCIN HCL 2,000 MG in SODIUM CHLORIDE 0.9% 500 ML IV ONE (17:40)
[2018-10-08] MEDS ORDERED: PIPERACILLIN/TAZOBACTAM 4.5 GM/120 ML BAG IV ONE (17:43)
[2018-10-08] MEDS ORDERED: PIPERACILL/TAZOBAC CONSULT ACTIVE PRN (17:43)
--- NOTE | 2018-10-08 17:50 | CT Scan Report ---
CT OF THE ABDOMEN AND PELVIS WITH CONTRAST CLINICAL HISTORY: R inguinal hernia, pain COMPARISON STUDY: CT of the abdomen and pelvis September 18, [address] September 27, 2018. TECHNIQUE: Following IV administration of 116 mL of Optiray-320, axial images of the abdomen and pelv is were obtained from the lung bases to the proximal femurs. Images were reviewed in the axial, sagit diony, and coronal planes. IV contrast was administered without complication. Automated exposure contr ol was utilized for the study. A dose lowering technique was utilized adhering to the principles of ALARA. Oral contrast was administered. CT DOSE: 570.59 mGy.cm FINDINGS: A small right pleural effusion has decreased in size since chest CT of September 27, 2018. C avitary airspace opacity within the right middle lobe is again noted. The amount of fluid has slightl y decreased. Right lower lobe airspace opacity persists. No pneumatosis, free air or portal venous ga s is present. Anasarca is noted. There is no hydronephrosis. The patient is status post gastric bypas s. No pneumatosis, free air or portal venous gas is present. No transition point is identified to sug gest a bowel obstruction. Mild bladder wall thickening is noted. A right hip arthroplasty is noted. P unctate left renal calculi are present. There are no ureteral. There is fluid within the right inguin al canal. There is no bowel loop within the inguinal canals. There is mild scrotal edema. There is no scrotal soft tissue gas. There is no perineal gas. No fluid collection is identified to suggest a ye wel obstruction. IMPRESSION: 1. No acute process within the abdomen or pelvis. 2. Evidence for volume overload with generalized anasarca. Fluid within the right inguinal canal. No bowel loops within the inguinal canals. 3. Status post gastric bypass. A few prominent loops of small bowel without transition point to sugge st bowel obstruction. 4. Redemonstration of a cavitary airspace opacity within the right middle lobe as shown on chest CT D [id number]. Increase in gaseous component with decrease in fluid component. This favors a cavit russell/necrotizing pneumonia. A neoplasm could appear similar however is considered less likely. Continu ed imaging follow-up to ensure resolution is recommended. 5. Small right pleural effusion. 6. Left-sided nephrolithiasis. Electronically signed by: Ian Elder M.D. 10/08/2018 5:48 PM
--- NOTE | 2018-10-08 17:54 | Surgery Consultation ---
Date of Consultation October 08, 2018 Assessment & Plan (1) Right inguinal pain: pt is a 58 [place] old male who presents to ER with 4- 5 hours right inguinal pain, WBC 12,000 base on pt's infection history, left knee infection and pneumonia, possible cellulitis on right inguinal area, plan, I recommend hospitalist will admit pt to hospital, IV antibiotic, control pain, repeat labs in am, will F/U D/W ER attending History of Present Illness History of Present Illness pt is a 58 year old male who presents to ER with 4-5 hours right inguinal pain, the pain is located at right inguinal area only, some swelling and redness, pt denies fever, passed BM today, no nausea, no vomiting, pt had left knee replacement with infection complication, last week pt was admitted to hospital for pneumonia, pt had CT scan today, I reviewed CT scan with pre sales technical consultant radiologist - no significant incarcerated inguinal hernia seen, Allergies Allergy/AdvReac Type Severity Reaction Status Date / Time No Known Allergies Allergy Verified 09/10/18 06:28 Home Medications Home Medications Medication Instructions Recorded Confirmed Type acetaminophen [Mapap 650 mg PO Q4H PRN 30 Days #60 tab 10/04/18 10/08/18 Rx (acetaminophen)] amlodipine [Norvasc] 10 mg PO QAM 30 Days #60 tab 10/04/18 10/08/18 Rx ceftriaxone 2 gm IV DAILY 28 Days #28 ea 10/04/18 10/08/18 Rx diphenhydramine HCl [Benadryl 25 mg PO Q8H PRN #30 tab 10/04/18 10/08/18 Rx Allergy] lorazepam 1 mg PO HS PRN 30 Days #30 tab 10/04/18 10/08/18 Rx metoprolol tartrate 12.5 mg PO BID 30 Days #30 tab 10/04/18 10/08/18 Rx oxycodone 10 mg PO Q4H PRN 14 Days #84 tab 10/04/18 10/08/18 Rx oxycodone [OxyContin] 30 mg PO Q12H 14 Days #56 tab 10/04/18 10/08/18 Rx prednisone 40 mg PO UD 21 Days #25 tab 10/04/18 10/08/18 Rx Patient History Medical History PTSD (post-traumatic stress disorder) (Chronic) Heroin overdose (Chronic) Anemia Borderline diabetes CKD (chronic kidney disease) Cavitary lesion of lung Cirrhosis High blood pressure Surgical History History of gastric bypass History of hernia repair Hx of foot surgery Status post left knee replacement With multiple revisions. Presently with antibiotic spacer in place Family History Other Diabetes Heart disease Social History Current Living Situation: Spouse Feels Safe at Home: Yes Smoking Status: Former smoker Tobacco Type: cigarettes Hx Alcohol Use: Yes Alcohol Intake Frequency: 3 or more drinks per day Hx Substance Use: Yes substance use type: crack/cocaine and heroin Beliefs That Will Affect Care: None Preferred Language: Fijian Visual Impairment: No Limitations Review of Systems Constitutional: as per Subjective / HPI Ear, Nose, Mouth, Throat: as per Subjective / HPI Respiratory: as per Subjective / HPI Cardiovascular: as per Subjective / HPI Gastrointestinal: as per Subjective / HPI cirrhosis, alcoholic, gastric bypass, right inguinal hernia repair BSIHOP Left knee replacement with infection 5 weeks ago Neurologic: as per Subjective / HPI Psychiatric: as per Subjective / HPI Endocrine: as per Subjective / HPI Hematologic / Lymphatic: as per Subjective / HPI Physical Exam 2 Vital Signs (Past 24 Hours): Last Vital Signs Temp 36.8 C 10/08/18 13:33 Pulse 65 10/08/18 16:00 Resp 13 10/08/18 16:00 BP 163/97 H 10/08/18 16:00 Pulse Ox 99 10/08/18 16:00 Constitutional: WD/WN, vitals as above well developed Neck: trachea midline, no thyromegaly Respiratory: normal respiratory effort, lungs clear to auscultation Cardiovascular: RRR, no murmur, no edema Gastrointestinal (Abdomen): Percussion/Palpation: + abdomen tender and abdomen soft some tenderness at right inguinal area, with some swelling, no mass, no abdominal distend, BS + Musculoskeletal: cast on left knee Neurologic: awake Psychiatric: Orientation: alert and oriented x 3 Results & Data Laboratory Results Abnormal lab results 10/08/18 10/08/18 Range/Units 14:40 14:40 WBC 12.10 H (4.8-10.8) K/uL RBC 2.47 L (4.7-6.1) M/uL Hgb 7.5 L (14.0-18.0) g/dL Hct 23.5 L (42-52) % MCHC 31.9 L (32-36) g/dL RDW Std Deviation 61.5 H (36.4-46.3) fL RDW Coeff of Leatha 17.6 H (11.5-14.5) % Immature Gran # (Auto) 0.04 H (0.00-0.02) K/uL Neut # (Auto) 10.99 H (1.4-6.5) K/uL Lymph # (Auto) 0.80 L (1.2-3.4) K/uL Potassium 5.2 H (3.5-5.1) mmol/L Chloride 108 H (98-107) mmol/L BUN 30 H (7-18) mg/dl Creatinine 1.46 H (0.6-1.4) mg/dl BUN/Creatinine Ratio 20.7 H (10-20) Glucose 101 H (70-99) mg/dl Calcium 8.0 L (8.5-10.1) mg/dl Albumin 2.1 L (3.4-5.0) gm/dl Globulin 5.2 H (2.5-4.0) gm/dl Albumin/Globulin Ratio 0.4 L (0.9-2) Diagnostic Findings CT scan report is pending, preliminary reviewed- no significant incarcerated right inguinal hernia
--- NOTE | 2018-10-08 19:03 | Emergency Department Note ---
Entered by Doug Armstrong acting as a scribe for History of Present Illness General Chief complaint: Groin Pain Stated complaint: abd/groin pain [facility] Source: patient Limitations: no limitations History of Present Illness Provider complaint: Right groin pain Onset (ago): minute(s) Location: lower extremity (Right Groin) Severity: severe Pain Consistency: + constant Maximum Pain Intensity: 6 Treatments prior to arrival: none The patient is a 58 year old male who presents to the Emergency Room with complaints of severe pain to the right groin that began shortly prior to arrival. The patient states that he was doing upper extremity exercises at Occupational Therapy today when he experienced sudden pain in the right groin. He describes the pain a severe, and adds that it is significantly worsened with movement and palpation. Home Medications Home Medications Medication Instructions Recorded Confirmed Type acetaminophen [Mapap 650 mg PO Q4H PRN 30 Days #60 tab 10/04/18 10/08/18 Rx (acetaminophen)] amlodipine [Norvasc] 10 mg PO QAM 30 Days #60 tab 10/04/18 10/08/18 Rx ceftriaxone 2 gm IV DAILY 28 Days #28 ea 10/04/18 10/08/18 Rx diphenhydramine HCl [Benadryl 25 mg PO Q8H PRN #30 tab 10/04/18 10/08/18 Rx Allergy] lorazepam 1 mg PO HS PRN 30 Days #30 tab 10/04/18 10/08/18 Rx metoprolol tartrate 12.5 mg PO BID 30 Days #30 tab 10/04/18 10/08/18 Rx oxycodone 10 mg PO Q4H PRN 14 Days #84 tab 10/04/18 10/08/18 Rx oxycodone [OxyContin] 30 mg PO Q12H 14 Days #56 tab 10/04/18 10/08/18 Rx prednisone 40 mg PO UD 21 Days #25 tab 10/04/18 10/08/18 Rx Allergies Allergy/AdvReac Type Severity Reaction Status Date / Time No Known Allergies Allergy Verified 09/10/18 06:28 Past Med/Surg History Medical History Right inguinal pain PTSD (post-traumatic stress disorder) (Chronic) Heroin overdose (Chronic) Anemia Borderline diabetes CKD (chronic kidney disease) Cavitary lesion of lung Cirrhosis High blood pressure Surgical History History of gastric bypass History of hernia repair Hx of foot surgery Status post left knee replacement With multiple revisions. Presently with antibiotic spacer in place Family History Other Diabetes Heart disease Social History Current Living Situation: Rehab Other Information That Helps Us Care for You: No Feels Safe at Home: Yes Safety Concerns: Feels Safe At This Time Smoking Status: Former smoker Tobacco Type: cigarettes Hx Alcohol Use: Yes Alcohol Intake Frequency: 3 or more drinks per day Hx Substance Use: Yes substance use type: former substance user, heroin and IV drugs Beliefs That Will Affect Care: None Preferred Language: Swedish Communication Ability: Effective Gate Cutter Required: No Review of Systems See HPI for pertinent positives & negatives. and A total of 10 systems reviewed and were otherwise negative Physical Exam Vital Signs Vital Signs - 24 hr 10/08/18 13:32 10/08/18 13:33 10/08/18 13:38 Temperature 36.8 C Temperature Source Oral Sepsis Recent Fever Within 48 Hours No Sepsis New/Unexplained Change in Mental Status No Sepsis Action Taken by Nursing No Action Required Pulse Rate 70 72 69 Pulse Rhythm Regular Pulse Strength Normal Respiratory Rate 13 16 16 Respiratory Effort / Characteristics Non-Labored Respiratory Depth Normal Respiratory Pattern Regular Blood Pressure 147/106 H 147/106 H Blood Pressure Mean 119 119 Blood Pressure Position Lying Pulse Oximetry 100 100 99 Oxygen Delivery Method Room Air 10/08/18 14:00 10/08/18 14:01 10/08/18 14:27 Temperature Temperature Source Sepsis Recent Fever Within 48 Hours Sepsis New/Unexplained Change in Mental Status Sepsis Action Taken by Nursing Pulse Rate 78 79 74 Pulse Rhythm Pulse Strength Respiratory Rate 18 19 12 Respiratory Effort / Characteristics Respiratory Depth Respiratory Pattern Blood Pressure 159/105 H 133/89 Blood Pressure Mean 123 103 Blood Pressure Position Pulse Oximetry 98 Oxygen Delivery Method 10/08/18 15:00 10/08/18 15:01 10/08/18 15:02 Temperature Temperature Source Sepsis Recent Fever Within 48 Hours Sepsis New/Unexplained Change in Mental Status Sepsis Action Taken by Nursing Pulse Rate 84 80 72 Pulse Rhythm Pulse Strength Respiratory Rate 16 17 12 Respiratory Effort / Characteristics Respiratory Depth Respiratory Pattern Blood Pressure 140/100 Blood Pressure Mean 113 Blood Pressure Position Pulse Oximetry 98 95 99 Oxygen Delivery Method 10/08/18 16:00 10/08/18 17:36 10/08/18 18:00 Temperature Temperature Source Sepsis Recent Fever Within 48 Hours Sepsis New/Unexplained Change in Mental Status Sepsis Action Taken by Nursing Pulse Rate 65 78 Pulse Rhythm Pulse Strength Respiratory Rate 13 15 Respiratory Effort / Characteristics Respiratory Depth Respiratory Pattern Blood Pressure 163/97 H Blood Pressure Mean 119 Blood Pressure Position Pulse Oximetry 99 100 99 Oxygen Delivery Method 10/08/18 18:15 Temperature Temperature Source Sepsis Recent Fever Within 48 Hours Sepsis New/Unexplained Change in Mental Status Sepsis Action Taken by Nursing Pulse Rate 79 Pulse Rhythm Pulse Strength Respiratory Rate 18 Respiratory Effort / Characteristics Respiratory Depth Respiratory Pattern Blood Pressure 146/88 H Blood Pressure Mean 107 Blood Pressure Position Pulse Oximetry 98 Oxygen Delivery Method GENERAL: Awake, alert, appears uncomfortable. HENT: Normocephalic, atraumatic. Oropharynx unremarkable. EYES: Normal conjunctiva. Sclera non-icteric. NECK: Supple. No nuchal rigidity. RESPIRATORY: Clear to auscultation. No wheezes. Normal respiratory effort. CARDIAC: Normal rate. Normal rhythm. Extremities warm and well perfused. GI: Soft, non-distended. No tenderness to palpation. No rebound or guarding. No masses. RECTAL: Deferred. MUSCULOSKELETAL: Atraumatic. Chest examination reveals no tenderness. UPPER EXTREMITIES: PIC line in place in the left upper extremity. LOWER EXTREMITIES: Calves are equal size bilaterally and non-tender. No edema. There is a bandage over the left lower knee. There is significant tenderness present to the right inguinal area with a palpable mass into the scrotum. NEURO: Normal sensorium. No sensory or motor deficits noted. No facial droop. SKIN: Warm and dry. No rash or jaundice noted. Course 1342: Past medical records reviewed. The patient was evaluated in room A3, and a complete history and physical examination were performed. 1431: I was unable to manually reduce the patient's hernia. I reviewed the patient's case with Dr. Gomez - General Surgery. He requests a CT with oral contrast. 173: I reviewed the patient's case with Dr. Gomez again. He reviewed the CT of the abdomen which does not show an incarcerated hernia. He suggests admitting the patient to medicine for pain control. 1758: I reviewed the patient's case with Dr. Loja - [facility]. She will evaluate the patient for further management. Administered Medications Vancomycin HCl 2,000 mg/ (Sodium Chloride) 540 mls @ 200 mls/hr IV NOW ONE Stop: 10/08/18 20:21 Last Admin: 10/08/18 18:18 Dose: 200 mls/hr Ioversol (Optiray 320 125ml) 116 ml IV ONCE PRN PRN Reason: Interaction Checking Stop: 10/12/18 17:20 Last Admin: 10/08/18 17:21 Dose: 116 ml Discontinued Medications Diphenhydramine HCl (Benadryl) 50 mg IV NOW STA Stop: 10/08/18 13:55 Last Admin: 10/08/18 13:58 Dose: 50 mg Diphenhydramine HCl (Benadryl) Confirm Administered Dose 50 mg .ROUTE .[facility] ONE Stop: 10/08/18 13:58 Last Admin: 10/08/18 13:57 Dose: Not Given Fentanyl Citrate (Fentanyl Citrate) 50 mcg IV NOW STA Stop: 10/08/18 15:29 Last Admin: 10/08/18 15:57 Dose: 50 mcg Hydromorphone HCl (Dilaudid) 1 mg IV NOW STA Stop: 10/08/18 13:48 Last Admin: 10/08/18 14:04 Dose: 1 mg Lorazepam (Ativan) 1 mg in 2 mls @ 2 mls/min IV NOW STA Stop: 10/08/18 13:48 Last Admin: 10/08/18 14:04 Dose: 2 mls/min Piperacillin Sod/Tazobactam Sod (Zosyn) 4.5 gm in 120 mls @ 240 mls/hr IV NOW ONE Stop: 10/08/18 18:12 Last Infusion: 10/08/18 18:53 Dose: 0 mls/hr Admin: 10/08/18 18:22 Dose: 240 mls/hr Medical Decision Making Differential Diagnosis Differential diagnosis: Etiologies such as biliary colic, cholecystitis, hernia, hepatitis, pancreatitis , cardiac disease, pancreatitis, gastritis, peptic ulcer disease, appendicitis , cystitis, diverticulitis, mesenteric ischemia, inflammatory bowel disease, ileus, bowel obstruction, testicular torsion, aortic pathology, shingles, as well as others were considered. Medical Records Attestation: I reviewed the patient's medical records. Home Medications Current Medication List: was personally reviewed by me Laboratory Data Attestation: I reviewed the patient's lab results. Result diagrams: 10/08/18 14:40 10/08/18 14:40 Lab Results 10/08/18 10/08/18 10/08/18 Range/Units 14:40 14:40 14:40 WBC 12.10 H (4.8-10.8) K/uL RBC 2.47 L (4.7-6.1) M/uL Hgb 7.5 L (14.0-18.0) g/dL Hct 23.5 L (42-52) % MCV 95.1 (80-100) fL MCH 30.4 (25-34) pg MCHC 31.9 L (32-36) g/dL RDW Std Deviation 61.5 H (36.4-46.3) fL RDW Coeff of Leatha 17.6 H (11.5-14.5) % Plt Count 285 (130-400) K/uL MPV 7.9 (7.4-10.4) fL Immature Gran % (Auto) 0.3 % Neut % (Auto) 90.8 % Lymph % (Auto) 6.6 % Ford % (Auto) 2.1 % Eos % (Auto) 0.1 % Baso % (Auto) 0.1 % Immature Gran # (Auto) 0.04 H (0.00-0.02) K/uL Neut # (Auto) 10.99 H (1.4-6.5) K/uL Lymph # (Auto) 0.80 L (1.2-3.4) K/uL Ford # (Auto) 0.25 (0.11-0.59) K/uL Eos # (Auto) 0.01 (0-0.5) K/uL Baso # (Auto) 0.01 (0-0.2) K/uL Hypochromasia Present PT 10.8 (9.0-12.0) Seconds INR 1.1 (0.9-1.1) APTT 25.4 (21.0-31.0) Seconds PTT Ratio 1.0 Sodium 140 (136-145) mmol/L Potassium 5.2 H (3.5-5.1) mmol/L Chloride 108 H (98-107) mmol/L Carbon Dioxide 26 (21-32) mmol/L Anion Gap 6.0 (3-11) BUN 30 H (7-18) mg/dl Creatinine 1.46 H (0.6-1.4) mg/dl Est Cr Clr Drug Dosing 72.9 ml/min Est GFR ( Amer) 61.4 Est GFR (Non-Af Amer) 53.0 BUN/Creatinine Ratio 20.7 H (10-20) Glucose 101 H (70-99) mg/dl Lactate (0.4-2.0) mmol/L Calcium 8.0 L (8.5-10.1) mg/dl Total Bilirubin 0.2 (0.2-1) mg/dl AST 17 (15-37) U/L ALT 43 (12-78) U/L Alkaline Phosphatase 80 (45-117) U/L Total Protein 7.3 (6.4-8.2) gm/dl Albumin 2.1 L (3.4-5.0) gm/dl Globulin 5.2 H (2.5-4.0) gm/dl Albumin/Globulin Ratio 0.4 L (0.9-2) 10/08/18 Range/Units 14:40 WBC (4.8-10.8) K/uL RBC (4.7-6.1) M/uL Hgb (14.0-18.0) g/dL Hct (42-52) % MCV (80-100) fL MCH (25-34) pg MCHC (32-36) g/dL RDW Std Deviation (36.4-46.3) fL RDW Coeff of Leatha (11.5-14.5) % Plt Count (130-400) K/uL MPV (7.4-10.4) fL Immature Gran % (Auto) % Neut % (Auto) % Lymph % (Auto) % Ford % (Auto) % Eos % (Auto) % Baso % (Auto) % Immature Gran # (Auto) (0.00-0.02) K/uL Neut # (Auto) (1.4-6.5) K/uL Lymph # (Auto) (1.2-3.4) K/uL Ford # (Auto) (0.11-0.59) K/uL Eos # (Auto) (0-0.5) K/uL Baso # (Auto) (0-0.2) K/uL Hypochromasia PT (9.0-12.0) Seconds INR (0.9-1.1) APTT (21.0-31.0) Seconds PTT Ratio Sodium (136-145) mmol/L Potassium (3.5-5.1) mmol/L Chloride (98-107) mmol/L Carbon Dioxide (21-32) mmol/L Anion Gap (3-11) BUN (7-18) mg/dl Creatinine (0.6-1.4) mg/dl Est Cr Clr Drug Dosing ml/min Est GFR ( Amer) Est GFR (Non-Af Amer) BUN/Creatinine Ratio (10-20) Glucose (70-99) mg/dl Lactate 0.9 (0.4-2.0) mmol/L Calcium (8.5-10.1) mg/dl Total Bilirubin (0.2-1) mg/dl AST (15-37) U/L ALT (12-78) U/L Alkaline Phosphatase (45-117) U/L Total Protein (6.4-8.2) gm/dl Albumin (3.4-5.0) gm/dl Globulin (2.5-4.0) gm/dl Albumin/Globulin Ratio (0.9-2) Imaging Data Attestation: I personally reviewed and interpreted this imaging study as follows : Radiologist's Impression: CT OF THE ABDOMEN AND PELVIS WITH CONTRAST CLINICAL HISTORY: R inguinal hernia, pain COMPARISON STUDY: CT of the abdomen and pelvis September 18, [address] September 27, 2018. TECHNIQUE: Following IV administration of 116 mL of Optiray-320, axial images of the abdomen and pelvis were obtained from the lung bases to the proximal femurs. Images were reviewed in the axial, sagittal, and coronal planes. IV contrast was administered without complication. Automated exposure control was utilized for the study. A dose lowering technique was utilized adhering to the principles of ALARA. Oral contrast was administered. CT DOSE: 570.59 mGy.cm FINDINGS: A small right pleural effusion has decreased in size since chest CT of September 27, 2018. Cavitary airspace opacity within the right middle lobe is again noted. The amount of fluid has slightly decreased. Right lower lobe airspace opacity persists. No pneumatosis, free air or portal venous gas is present. Anasarca is noted. There is no hydronephrosis. The patient is status post gastric bypass. No pneumatosis, free air or portal venous gas is present. No transition point is identified to suggest a bowel obstruction. Mild bladder wall thickening is noted. A right hip arthroplasty is noted. Punctate left renal calculi are present. There are no ureteral. There is fluid within the right inguinal canal. There is no bowel loop within the inguinal canals. There is mild scrotal edema. There is no scrotal soft tissue gas. There is no perineal gas. No fluid collection is identified to suggest a bowel obstruction. IMPRESSION: 1. No acute process within the abdomen or pelvis. 2. Evidence for volume overload with generalized anasarca. Fluid within the right inguinal canal. No bowel loops within the inguinal canals. 3. Status post gastric bypass. A few prominent loops of small bowel without transition point to suggest bowel obstruction. 4. Redemonstration of a cavitary airspace opacity within the right middle lobe as shown on chest CT September 27, 2018. Increase in gaseous component with decrease in fluid component. This favors a cavitary/necrotizing pneumonia. A neoplasm could appear similar however is considered less likely. Continued imaging follow-up to ensure resolution is recommended. 5. Small right pleural effusion. 6. Left-sided nephrolithiasis. Electronically signed by: Ian Elder M.D. 10/08/2018 5:48 PM Blood Pressure Blood Pressure Findings: Elevated blood pressure Blood Pressure Disposition: elevated BP felt to be situational MDM Narrative 58-year-old gentleman with an extensive past medical history recent hospitalization for knee infection were sent from [facility] today complaining of significant right groin pain. Was doing occupational therapy with his upper extremities. Had sudden onset pain. Appears to have a large inguinal hernia palpated into the scrotum on physical exam. Denies a history of these. Significant pain. Given Dilaudid and Ativan to attempt manual reduction; no success. Others the abdomen otherwise benign. He is on daily ceftriaxone. Discussed with our general surgeon here. He requested CT abdomen pelvis with contrast. This was ordered. No lactate elevation and white count is similar to discharge several days ago. CT abdomen pelvis completed in the surgeon Dr. Gomez reviewed here with the radiologist. He believes this is more of a infectious source from his other infections. Has been on ceftriaxone. Will add back vancomycin at this time and Zosyn repeat cultures obtained. Will be admitted to the hospitalist for pain control and continued evaluation by surgery and likely infectious disease tomorrow. Impression & Plan Abdominal pain, RLQ Discharge Plan Visit Data Chief Complaint: Groin Pain Stated Complaint: abd/groin pain / [facility] ED Provider: Mike Maxwell Discharge Problem: Abdominal pain, RLQ Patient Disposition: Being Evaluated by Hospitalist Forms Stand Alone Forms: My [facility] Prescriptions Prescriptions: No Action acetaminophen [Mapap (acetaminophen)] 325 mg Tablet 650 mg PO Q4H PRN (Reason: fever or pain) 30 Days Qty: 60 RF: 2 amlodipine [Norvasc] 5 mg Tablet 10 mg PO QAM 30 Days Qty: 60 RF: 3 lorazepam 1 mg Tablet 1 mg PO HS PRN (Reason: insomnia) 30 Days Qty: 30 RF: 0 oxycodone 5 mg Tablet 10 mg PO Q4H PRN (Reason: pain) 14 Days Qty: 84 RF: 0 metoprolol tartrate 25 mg Tablet 12.5 mg PO BID 30 Days Qty: 30 RF: 3 oxycodone [OxyContin] 15 mg Tablet,Oral Only,Ext.Rel.12 Hr 30 mg PO Q12H 14 Days Qty: 56 RF: 0 ceftriaxone 2 gram recon soln 2 gm IV DAILY 28 Days Qty: 28 RF: 0 diphenhydramine HCl [Benadryl Allergy] 25 mg tablet 25 mg PO Q8H PRN (Reason: itching) Qty: 30 RF: 0 prednisone 20 mg tablet 40 mg PO UD 21 Days Qty: 25 RF: 0 Referrals Referrals: Meli Vásquez MD [Primary Care Provider] - The scribe's documentation has been prepared under my direction and personally reviewed by me in its entirety. I confirm that the note above accurately reflects all work, treatment, procedures, and medical decision making performed by me.
[2018-10-08] MEDS ORDERED: OXYCODONE HCL IR 5 MG TAB (IMMEDIATE RELEASE) ONE (19:55)
--- NOTE | 2018-10-08 21:10 | History & Physical Report ---
Date of Service October 08, 2018 Assessment & Plan (1) Right inguinal pain: Etiology unclear at this time. Suspect hernia vs muscle strain vs infection. Patient is afebrile, hemodynamically stable, does not appear septic. His leukocytosis is stable (WBC=12.1, was 11.77 on day of discharge, 12.78 before then). Patient received Vancomycin and Zosyn in ER * Pain control * Will ask ID to see the patient as well to assist with diagnosis of possible infection * Check ESR and CRP * Check CK * Follow cultures * Continue Ceftriaxone for now * PT and OT assessment * (2) Infection associated with internal left knee prosthesis: Patient with prolonged hospital stay last month with complaint of left knee pain. Prolonged hospital stay at [facility] prior to that secondary to infection of left knee prosthesis. Presently states his left knee feels ok. Patient was seen by ID during his prior hospital stay. He is to complete 6 weeks of antibiotics (started on 08/31/18. End date should be .) Patient with antibiotic spacer in place presently - will need future surgery, explant and replacement of prosthetic. He has a followup appointment with [facility] scheduled for 10/15/18. Ultimately will most likely require surgery performed at a tertiary care center. Patient is to followup with Dr. Serrano on 10/14/18. * Continue Ceftriaxone 2gm IV daily * ESR and CRP ordered * ID consultation as above - appreciate assistance * Pain control with Oxycontin 30mg po BID and Oxycodone 10mg po q 4 hours PRN * Would avoid IV pain medications as patient becomes somnolent and altered * (3) Hypertension: Blood pressure elevated at present, 163/97. * Continue Metoprolol 12.5mg po BID * Continue Amlodipine 10mg po daily * Continue to monitor. Patient may need additional agent for target BP control * (4) Borderline diabetes: Continue to monitor with fingersticks (5) Pneumonia: Patient found to have RLL cavitary lesions during last hospital stay c/w necrotizing PNA. Blood cultures from [facility] 08/24 positive for strep pneumoniae , repeat cultures 08/31 and 09/[address] guided lung biopsy 09/27 that was negative. Transbronchial biopsy performed 09/[address] Sinclair which was negative for malignancy. Patient presently with no respiratory distress, no complaints of SOB/cough/wheeze. Lungs CTA. * Continue Ceftriaxone as above * Continue Steroid taper as above * (6) BISHOP (acute kidney injury): BUN=30, Cr=1.46, slightly above discharge value of 1.35. Patient states he is passing urine without difficulty. * Will give 1 bottle of 25% albumin for volume expansion - patient with low albumin, evidence of anasarca/3rd spacing noted on CT imaging * Repeat labs in AM * Avoid nephrotoxic agents * Renal dosing where appropriate * (7) Anemia: Baseline HG of 10-11. Presently 7.5, normochromic/normocytic. No active bleeding. B12/folate normal on 09/15. Ferritin level elevated on 09/15 - acute phase reactant in setting of acute infection. Anemia thought to be secondary to malnutrition, cirrhosis, EtOH abuse. * Continue to monitor with daily CBC * Transfuse for active bleed, symptomatic anemia or Hg < 7 * (8) Cirrhosis, alcoholic: Compensated at present. * Continue to monitor * History of Present Illness Chief Complaint: right inguinal pain Primary Care Provider: Meli Vásquez MD Mr. Ramon is a 58yo male with a plethora of medical problems to include HTN, cirrhosis, CKD. Patient with recent prolonged and complicated hospital stay from 09/10 - 10/05/18 for septic arthritis of left knee prosthesis, found to have multifocal necotizing pneumonia, cirrhosis and bacteremia during that hospital stay. He had a PICC line placed and was discharged home on Ceftriaxone 2gm IV daily for a 6 week course. Reports he has been receiving all his medications as prescribed. He was discharged to [facility] on 10/05/18 in stable condition. Patient states that he has been having pain in his right groin radiating into the abdomen occurring intermittently over the last 3 days. Pain occurs multiple times per day, described as severe to the point of "doubling him over" and lasting appx 45 minutes. Pain is tearing in nature. Associated with swelling and firmness of the right inguinal region. It does not occur specifically with bearing down or lifting. He has never had this pain before. Otherwise, he denies fevers/chills/sweats/malaise. Denies CP/palpitations/SOB/cough/wheeze/ abdominal pain. He is passing gas and having normal BMs. No additional complaints at this time. CT of the abdomen obtained from ER which revealed fluid in the right inguinal canal. No hernia appreciated. He was evaluated by Dr. Gomez from surgery who expressed concern for seeding infection to the inguinal canal with possible infection of that space. No surgical intervention planned at this time. ER Course: Benadryl, Fentanyl, Dilaudid, Vancomycin and Zosyn Allergies Allergy/AdvReac Type Severity Reaction Status Date / Time No Known Allergies Allergy Verified 09/10/18 06:28 Home Medications Home Medications Medication Instructions Recorded Confirmed Type acetaminophen [Mapap 650 mg PO Q4H PRN 30 Days #60 tab 10/04/18 10/08/18 Rx (acetaminophen)] amlodipine [Norvasc] 10 mg PO QAM 30 Days #60 tab 10/04/18 10/08/18 Rx ceftriaxone 2 gm IV DAILY 28 Days #28 ea 10/04/18 10/08/18 Rx diphenhydramine HCl [Benadryl 25 mg PO Q8H PRN #30 tab 10/04/18 10/08/18 Rx Allergy] lorazepam 1 mg PO HS PRN 30 Days #30 tab 10/04/18 10/08/18 Rx metoprolol tartrate 12.5 mg PO BID 30 Days #30 tab 10/04/18 10/08/18 Rx oxycodone 10 mg PO Q4H PRN 14 Days #84 tab 10/04/18 10/08/18 Rx oxycodone [OxyContin] 30 mg PO Q12H 14 Days #56 tab 10/04/18 10/08/18 Rx prednisone 40 mg PO UD 21 Days #25 tab 10/04/18 10/08/18 Rx Past Med/Surg History Medical History Right inguinal pain PTSD (post-traumatic stress disorder) (Chronic) Heroin overdose (Chronic) Anemia Borderline diabetes CKD (chronic kidney disease) Cavitary lesion of lung Cirrhosis High blood pressure Surgical History History of gastric bypass History of hernia repair Hx of foot surgery Status post left knee replacement With multiple revisions. Presently with antibiotic spacer in place Family History Other Diabetes Heart disease Social History Current Living Situation: Rehab Other Information That Helps Us Care for You: No Feels Safe at Home: Yes Safety Concerns: Feels Safe At This Time Smoking Status: Former smoker Tobacco Type: cigarettes Hx Alcohol Use: Yes Alcohol Intake Frequency: 3 or more drinks per day Hx Substance Use: Yes substance use type: former substance user, heroin and IV drugs Beliefs That Will Affect Care: None Preferred Language: P[place] Communication Ability: Effective Hat Trimmer Required: No Review of Systems All systems reviewed & are unremarkable except as noted in HPI & below Physical Exam 2 Vital Signs (Past 24 Hours): Last Vital Signs Temp 36.8 C 10/08/18 13:33 Pulse 77 10/08/18 20:00 Resp 14 10/08/18 20:00 BP 144/84 H 10/08/18 20:00 Pulse Ox 99 10/08/18 20:00 Physical Exam: General: appears older than stated age, patient resting comfortably, somnolent but arousable, oriented x 4, nontoxic in appearance Skin: warm, dry, intact, no rashes or lesions HEENT: NC/AT, PERRL, EOMI, anicteric sclera, conjunctiva without injection, external ear normal to inspection and nontender, nares patent, moist mucus membranes, poor dentition, no oropharyngeal lesions, neck supple, trachea midline, no LAD, no thyromegaly, no JVD Heart: +S1/S2, regular, no m/r/g Lungs: equal air entry bilaterally, no rales/rhonchi/wheezes Abd: +BS, soft, NT/ND, no masses/organomegaly/ascites Ext: warm, 2+ pulses in UE/LE bilaterally, no clubbing/cyanosis, +edema bilaterally, immobilizer on left knee Neuro: nonfocal, patient AA&O x 4, speech intact, no facial droop, moving all extremities on command with equal strength 5/5 Results & Data Laboratory Results Lab Results 10/08/18 10/08/18 10/08/18 Range/Units 14:40 14:40 14:40 WBC 12.10 H (4.8-10.8) K/uL RBC 2.47 L (4.7-6.1) M/uL Hgb 7.5 L (14.0-18.0) g/dL Hct 23.5 L (42-52) % MCV 95.1 (80-100) fL MCH 30.4 (25-34) pg MCHC 31.9 L (32-36) g/dL RDW Std Deviation 61.5 H (36.4-46.3) fL RDW Coeff of Leatha 17.6 H (11.5-14.5) % Plt Count 285 (130-400) K/uL MPV 7.9 (7.4-10.4) fL Immature Gran % (Auto) 0.3 % Neut % (Auto) 90.8 % Lymph % (Auto) 6.6 % Power % (Auto) 2.1 % Eos % (Auto) 0.1 % Baso % (Auto) 0.1 % Immature Gran # (Auto) 0.04 H (0.00-0.02) K/uL Neut # (Auto) 10.99 H (1.4-6.5) K/uL Lymph # (Auto) 0.80 L (1.2-3.4) K/uL Power # (Auto) 0.25 (0.11-0.59) K/uL Eos # (Auto) 0.01 (0-0.5) K/uL Baso # (Auto) 0.01 (0-0.2) K/uL Hypochromasia Present PT 10.8 (9.0-12.0) Seconds INR 1.1 (0.9-1.1) APTT 25.4 (21.0-31.0) Seconds PTT Ratio 1.0 Sodium 140 (136-145) mmol/L Potassium 5.2 H (3.5-5.1) mmol/L Chloride 108 H (98-107) mmol/L Carbon Dioxide 26 (21-32) mmol/L Anion Gap 6.0 (3-11) BUN 30 H (7-18) mg/dl Creatinine 1.46 H (0.6-1.4) mg/dl Est Cr Clr Drug Dosing 72.9 ml/min Est GFR ( Amer) 61.4 Est GFR (Non-Af Amer) 53.0 BUN/Creatinine Ratio 20.7 H (10-20) Glucose 101 H (70-99) mg/dl Lactate (0.4-2.0) mmol/L Calcium 8.0 L (8.5-10.1) mg/dl Total Bilirubin 0.2 (0.2-1) mg/dl AST 17 (15-37) U/L ALT 43 (12-78) U/L Alkaline Phosphatase 80 (45-117) U/L Total Protein 7.3 (6.4-8.2) gm/dl Albumin 2.1 L (3.4-5.0) gm/dl Globulin 5.2 H (2.5-4.0) gm/dl Albumin/Globulin Ratio 0.4 L (0.9-2) 10/08/18 Range/Units 14:40 WBC (4.8-10.8) K/uL RBC (4.7-6.1) M/uL Hgb (14.0-18.0) g/dL Hct (42-52) % MCV (80-100) fL MCH (25-34) pg MCHC (32-36) g/dL RDW Std Deviation (36.4-46.3) fL RDW Coeff of Leatha (11.5-14.5) % Plt Count (130-400) K/uL MPV (7.4-10.4) fL Immature Gran % (Auto) % Neut % (Auto) % Lymph % (Auto) % Power % (Auto) % Eos % (Auto) % Baso % (Auto) % Immature Gran # (Auto) (0.00-0.02) K/uL Neut # (Auto) (1.4-6.5) K/uL Lymph # (Auto) (1.2-3.4) K/uL Power # (Auto) (0.11-0.59) K/uL Eos # (Auto) (0-0.5) K/uL Baso # (Auto) (0-0.2) K/uL Hypochromasia PT (9.0-12.0) Seconds INR (0.9-1.1) APTT (21.0-31.0) Seconds PTT Ratio Sodium (136-145) mmol/L Potassium (3.5-5.1) mmol/L Chloride (98-107) mmol/L Carbon Dioxide (21-32) mmol/L Anion Gap (3-11) BUN (7-18) mg/dl Creatinine (0.6-1.4) mg/dl Est Cr Clr Drug Dosing ml/min Est GFR ( Amer) Est GFR (Non-Af Amer) BUN/Creatinine Ratio (10-20) Glucose (70-99) mg/dl Lactate 0.9 (0.4-2.0) mmol/L Calcium (8.5-10.1) mg/dl Total Bilirubin (0.2-1) mg/dl AST (15-37) U/L ALT (12-78) U/L Alkaline Phosphatase (45-117) U/L Total Protein (6.4-8.2) gm/dl Albumin (3.4-5.0) gm/dl Globulin (2.5-4.0) gm/dl Albumin/Globulin Ratio (0.9-2) Diagnostic Findings CT OF THE ABDOMEN AND PELVIS WITH CONTRAST CLINICAL HISTORY: R inguinal hernia, pain COMPARISON STUDY: CT of the abdomen and pelvis September 18, [address] September 27, 2018. TECHNIQUE: Following IV administration of 116 mL of Optiray-320, axial images of the abdomen and pelvis were obtained from the lung bases to the proximal femurs. Images were reviewed in the axial, sagittal, and coronal planes. IV contrast was administered without complication. Automated exposure control was utilized for the study. A dose lowering technique was utilized adhering to the principles of ALARA. Oral contrast was administered. CT DOSE: 570.59 mGy.cm FINDINGS: A small right pleural effusion has decreased in size since chest CT of September 27, 2018. Cavitary airspace opacity within the right middle lobe is again noted. The amount of fluid has slightly decreased. Right lower lobe airspace opacity persists. No pneumatosis, free air or portal venous gas is present. Anasarca is noted. There is no hydronephrosis. The patient is status post gastric bypass. No pneumatosis, free air or portal venous gas is present. No transition point is identified to suggest a bowel obstruction. Mild bladder wall thickening is noted. A right hip arthroplasty is noted. Punctate left renal calculi are present. There are no ureteral. There is fluid within the right inguinal canal. There is no bowel loop within the inguinal canals. There is mild scrotal edema. There is no scrotal soft tissue gas. There is no perineal gas. No fluid collection is identified to suggest a bowel obstruction. IMPRESSION: 1. No acute process within the abdomen or pelvis. 2. Evidence for volume overload with generalized anasarca. Fluid within the right inguinal canal. No bowel loops within the inguinal canals. 3. Status post gastric bypass. A few prominent loops of small bowel without transition point to suggest bowel obstruction. 4. Redemonstration of a cavitary airspace opacity within the right middle lobe as shown on chest CT September 27, 2018. Increase in gaseous component with decrease in fluid component. This favors a cavitary/necrotizing pneumonia. A neoplasm could appear similar however is considered less likely. Continued imaging follow-up to ensure resolution is recommended. 5. Small right pleural effusion. 6. Left-sided nephrolithiasis. Electronically signed by: Ian Elder M.D. 10/08/2018 5:48 PM Dictated: 10/08/18 1728 Transcribed: 10/08/18 1748 Code Status & VTE Plan Code Status FULL VTE Prophylaxis Plan VTE Prophylaxis will be ordered: Yes Critical Care Time Critical Care Time: No _ (1) Hypertension Hypertension type: essential hypertension Qualified Code(s): I10 - Essential (primary) hypertension (2) Anemia Anemia type: unspecified type Iron deficiency anemia type: Vitamin B12 deficiency anemia type: Folate deficiency anemia type: Bone marrow failure anemia type: Hemolytic anemia type: Other causes of anemia: Chronic kidney disease stage: Qualified Code(s): D64.9 - Anemia, unspecified (3) Infection associated with internal left knee prosthesis Encounter type: sequela Qualified Code(s): T84.54XS - Infection and inflammatory reaction due to internal left knee prosthesis, sequela (4) Cirrhosis, alcoholic Ascites presence: with ascites Qualified Code(s): K70.31 - Alcoholic cirrhosis of liver with ascites (5) Pneumonia Aspiration pneumonia type: Laterality: right Lung location: unspecified part of lung Pneumonia type: due to unspecified organism Qualified Code(s): J18.9 - Pneumonia, unspecified organism
[2018-10-08] MEDS ORDERED: ALBUMIN 25% 50 ML IV ONE (21:17)
[2018-10-08] MEDS ORDERED: ACETAMINOPHEN 325 MG TAB PO PRN (21:17)
[2018-10-08 22:10] LABS: C Reactive Protein 1.2 mg/dl (0-0.29)
[2018-10-08] MEDS: OXYCODONE HCL 15 MG TABCR (OXYCONTIN) PO SCH (22:49)
[2018-10-08] MEDS: METOPROLOL TARTRATE 25 MG TAB PO SCH (22:50)
[2018-10-09] MEDS: OXYCODONE HCL IR 5 MG TAB (IMMEDIATE RELEASE) PO PRN ×6 (00:08→22:02)
[2018-10-09] MEDS: DiphenhydrAMINE HCL 50 MG/ML VIAL IV PRN ×4 (03:15→22:03)
[2018-10-09] MEDS: LORazepam 1 MG TAB PO PRN (04:22)
[2018-10-09 06:16] LABS: Basophils # (auto) 0.02 K/uL (0-0.2); Basophils % (auto) 0.2 %; Eosinophils # (auto) 0.23 K/uL (0-0.5); Eosinophils % (auto) 2.3 %; Hematocrit (blood only) 22.8 % (42-52); Hemoglobin 7.2 g/dL (14.0-18.0); Immature Granulocytes # (auto) 0.03 K/uL (0.00-0.02); Immature Granulocytes % (auto) 0.3 %; Lymphocytes # (auto) 2.53 K/uL (1.2-3.4); Lymphocytes % (auto) 25.2 %; Mean Corpuscular Hgb Conc 31.6 g/dL (32-36); Mean Platelet Volume 8.2 fL (7.4-10.4); Monocytes # (auto) 0.68 K/uL (0.11-0.59); Monocytes % (auto) 6.8 %; Neutrophils # (auto) 6.54 K/uL (1.4-6.5); Neutrophils % (auto) 65.2 %; Platelet Count 287 K/uL (130-400); RDW Coefficient of Variation 17.8 % (11.5-14.5); RDW Standard Deviation 61.2 fL (36.4-46.3); White Blood Count 10.03 K/uL (4.8-10.8)
[2018-10-09 06:53] LABS: BUN Creatinine Ratio 20.9 (10-20); Calcium 7.9 mg/dl (8.5-10.1); Creatinine Clr Calc Pharmacy 77.7 ml/min; Est GFR (African American) 66.4; Est GFR (Non-African American) 57.2; Potassium 4.4 mmol/L (3.5-5.1)
[2018-10-09 07:17] LABS: Anisocytosis Present
[2018-10-09] MEDS: predniSONE 20 MG TAB PO SCH (08:08)
[2018-10-09] MEDS: OXYCODONE HCL 15 MG TABCR (OXYCONTIN) PO SCH ×2 (08:08→22:18)
[2018-10-09] MEDS: METOPROLOL TARTRATE 25 MG TAB PO SCH ×2 (08:08→22:01)
[2018-10-09] MEDS: AMLODIPINE BESYLATE 5 MG TAB PO SCH (08:08)
[2018-10-09] MEDS: PANTOprazole 40 MG TAB PO SCH (08:09)
[2018-10-09] MEDS: ENOXAPARIN INJ 40 MG/0.4 ML SYR SQ SCH (08:23)
[2018-10-09] MEDS: cefTRIAXone SODIUM 2,000 MG in DEXTROSE 5% 50 ML IV SCH (08:23)
[2018-10-09] MEDS ORDERED: CEFTRIAXONE 2 GM IV SCH (09:00)
--- NOTE | 2018-10-09 10:04 | Infectious Disease Consult ---
Date of Consultation October 09, 2018 Assessment & Plan (1) Right inguinal pain: Patient with acute onset of right inguinal pain of unclear review this is infectious in etiology. Would consider further imaging of area of tenderness, but for now would continue on current IV antibiotics pending final culture results. Will discuss with all involved. Will follow. (2) Infection associated with internal left knee prosthesis: (3) Pneumonia: History of Present Illness Reason for Consultation: ? Right inguinal infection Attending Physician: Renzo Montes History of Present Illness 58-year-old male well-known to me from recent hospitalization and with history of recent severe pneumococcal infection with infected left TKA status post removal of prosthesis and spacer placement, cavitary right middle lobe pneumonia status post bronchoscopy with unremarkable findings, who was admitted with 1 day history of sudden onset of right inguinal pain, 8-10 out of 10 in intensity, with swelling in the right groin. Came to the emergency room, attempted reduction of hernia was negative, CT scan was obtained which showed no evidence of hernia, and patient has been started empirically on vancomycin and Zosyn for possibility of right inguinal cellulitis. Patient states that he is no better since admission, still with severe pain. Has not had worsening pulmonary symptoms, no increase in left knee swelling or pain. No report of fever. Cultures are pending. Allergies Allergy/AdvReac Type Severity Reaction Status Date / Time No Known Allergies Allergy Verified 09/10/18 06:28 Home Medications Home Medications Medication Instructions Recorded Confirmed Type acetaminophen [Mapap 650 mg PO Q4H PRN 30 Days #60 tab 10/04/18 10/08/18 Rx (acetaminophen)] amlodipine [Norvasc] 10 mg PO QAM 30 Days #60 tab 10/04/18 10/08/18 Rx ceftriaxone 2 gm IV DAILY 28 Days #28 ea 10/04/18 10/08/18 Rx diphenhydramine HCl [Benadryl 25 mg PO Q8H PRN #30 tab 10/04/18 10/08/18 Rx Allergy] lorazepam 1 mg PO HS PRN 30 Days #30 tab 10/04/18 10/08/18 Rx metoprolol tartrate 12.5 mg PO BID 30 Days #30 tab 10/04/18 10/08/18 Rx oxycodone 10 mg PO Q4H PRN 14 Days #84 tab 12/28/18 01/01/19 Rx oxycodone [OxyContin] 30 mg PO Q12H 14 Days #56 tab 10/04/18 10/08/18 Rx prednisone 40 mg PO UD 21 Days #25 tab 10/04/18 10/08/18 Rx Patient History Medical History Right inguinal pain PTSD (post-traumatic stress disorder) (Chronic) Heroin overdose (Chronic) Anemia Borderline diabetes CKD (chronic kidney disease) Cavitary lesion of lung Cirrhosis High blood pressure Surgical History History of gastric bypass History of hernia repair Hx of foot surgery Status post left knee replacement With multiple revisions. Presently with antibiotic spacer in place Family History Other Diabetes Heart disease Social History Current Living Situation: Rehab Other Information That Helps Us Care for You: No Feels Safe at Home: Yes Safety Concerns: Feels Safe At This Time Smoking Status: Former smoker Tobacco Type: cigarettes Hx Alcohol Use: Yes Alcohol Intake Frequency: 3 or more drinks per day Hx Substance Use: Yes substance use type: former substance user, heroin and IV drugs Beliefs That Will Affect Care: None Preferred Language: Greek Communication Ability: Effective Stamps Or Coins Salesperson Required: No Review of Systems Constitutional: no fever and no chills All systems were reviewed and are negative except as per HPI Eyes: no problem reported Ear, Nose, Mouth, Throat: no problem reported Respiratory: + cough; no hemoptysis Cardiovascular: no problem reported Gastrointestinal: no problem reported Genitourinary (Male): no problem reported Musculoskeletal: as per Subjective / HPI Integumentary: no problem reported Neurologic: no problem reported Psychiatric: no problem reported Endocrine: no problem reported Hematologic / Lymphatic: no problem reported Physical Exam 2 Vital Signs (Past 24 Hours): Last Vital Signs Temp 36.9 C 10/09/18 07:24 Pulse 85 10/08/18 22:45 Resp 19 10/09/18 07:24 BP 148/88 H 10/09/18 07:24 Pulse Ox 68 L 10/09/18 07:24 Constitutional: WD/WN, vitals as above comfortable; no acute distress Eyes: PERRL, conjunctivae normal, anicteric sclerae ENMT: external ear and nose normal, oropharynx normal Neck: trachea midline, no thyromegaly neck nontender Respiratory: normal respiratory effort, lungs clear to auscultation normal percussion; does not use accessory muscles Cardiovascular: Rate/Rhythm: regular rate and regular rhythm Heart Sounds: normal S1 and normal S2; no gallop, no murmur and no cardiac rub Vessels: normal peripheral pulses; no JVD Gastrointestinal (Abdomen): normal bowel sounds, soft, nontender, no hepatosplenomegaly Musculoskeletal: no cyanosis or clubbing, extremities motor strength 5/5 Spine: thoracic spine normal to inspection and lumbar spine normal to inspection ; no cervical spinal tenderness Tenderness right inguinal area, no obvious increase in erythema, no obvious mass Skin: no rashes, warm and dry normal turgor; no lesions Neurologic: patellar DTR's 2+ bilat, sensation intact no focal motor deficits Psychiatric: A+Ox3, euthymic affect Orientation: cooperative Lymphatic: no cervical or axillary lymphadenopathy no inguinal lymphadenopathy Results & Data Laboratory Results Short CBC 10/08/18 10/09/18 Range/Units 14:40 05:47 WBC 12.10 H 10.03 (4.8-10.8) K/uL Hgb 7.5 L 7.2 L (14.0-18.0) g/dL Hct 23.5 L 22.8 L (42-52) % Plt Count 285 287 (130-400) K/uL BMP 10/08/18 10/09/18 14:40 05:47 Sodium 140 141 Potassium 5.2 H 4.4 D Chloride 108 H 109 H Carbon Dioxide 26 27 BUN 30 H 29 H Creatinine 1.46 H 1.37 Glucose 101 H 75 Calcium 8.0 L 7.9 L Cardiac Enzymes 10/08/18 Range/Units 21:38 Total Creatine Kinase 18 L (39-308) U/L Liver Function 10/08/18 Range/Units 14:40 Total Bilirubin 0.2 (0.2-1) mg/dl AST 17 (15-37) U/L ALT 43 (12-78) U/L Alkaline Phosphatase 80 (45-117) U/L Albumin 2.1 L (3.4-5.0) gm/dl Diagnostic Findings Name: RAMBO LANDEROS Tigist Acct: [id number] Status: [place] : 1960 [facility] [place]: 10/26 Age: 58 Sex: M Dis Date: Loc: Medical/Surgical/Ortho [facility]/Bed: W354-2 Spec: [id number] Collected: 10/08/18 Received: 10/08/[address]: Mike Maxwell M.D. Copy To: Meli Vásquez M.D. Tanitsky, Michael, D.O. Self, Referred Source: Blood OV Order: Ordered: Blood Culture Comments: Comment Default is separate sites, same time Drawn from CVAD per protocol. 10 cc discard. Procedure Result Verified Site Blood Culture PENDING Name: RAMBO LANDEROS : 1960 PAGE 1 Printed: 10/09/18 1002 END OF REPORT cc: ~ CT OF THE ABDOMEN AND PELVIS WITH CONTRAST CLINICAL HISTORY: R inguinal hernia, pain COMPARISON STUDY: CT of the abdomen and pelvis September 18, [address] September 27, 2018. TECHNIQUE: Following IV administration of 116 mL of Optiray-320, axial images of the abdomen and pelvis were obtained from the lung bases to the proximal femurs. Images were reviewed in the axial, sagittal, and coronal planes. IV contrast was administered without complication. Automated exposure control was utilized for the study. A dose lowering technique was utilized adhering to the principles of ALARA. Oral contrast was administered. CT DOSE: 570.59 mGy.cm FINDINGS: A small right pleural effusion has decreased in size since chest CT of September 27, 2018. Cavitary airspace opacity within the right middle lobe is again noted. The amount of fluid has slightly decreased. Right lower lobe airspace opacity persists. No pneumatosis, free air or portal venous gas is present. Anasarca is noted. There is no hydronephrosis. The patient is status post gastric bypass. No pneumatosis, free air or portal venous gas is present. No transition point is identified to suggest a bowel obstruction. Mild bladder wall thickening is noted. A right hip arthroplasty is noted. Punctate left renal calculi are present. There are no ureteral. There is fluid within the right inguinal canal. There is no bowel loop within the inguinal canals. There is mild scrotal edema. There is no scrotal soft tissue gas. There is no perineal gas. No fluid collection is identified to suggest a bowel obstruction. IMPRESSION: 1. No acute process within the abdomen or pelvis. 2. Evidence for volume overload with generalized anasarca. Fluid within the right inguinal canal. No bowel loops within the inguinal canals. 3. Status post gastric bypass. A few prominent loops of small bowel without transition point to suggest bowel obstruction. 4. Redemonstration of a cavitary airspace opacity within the right middle lobe as shown on chest CT September 27, 2018. Increase in gaseous component with decrease in fluid component. This favors a cavitary/necrotizing pneumonia. A neoplasm could appear similar however is considered less likely. Continued imaging follow-up to ensure resolution is recommended. 5. Small right pleural effusion. 6. Left-sided nephrolithiasis. Electronically signed by: Ian Elder M.D. 10/08/2018 5:48 PM Dictated: 10/08/18 1728 _ (1) Infection associated with internal left knee prosthesis Encounter type: sequela Qualified Code(s): T84.54XS - Infection and inflammatory reaction due to internal left knee prosthesis, sequela (2) Pneumonia Aspiration pneumonia type: Laterality: right Lung location: unspecified part of lung Pneumonia type: due to unspecified organism Qualified Code(s): J18.9 - Pneumonia, unspecified organism
[2018-10-09] MEDS: LACTOBACILLUS ACIDOPHILUS (FLORANEX) TAB PO SCH ×3 (13:45→21:59)
--- NOTE | 2018-10-09 23:35 | Hospitalist Progress Note ---
Date of Service October 09, 2018 Assessment & Plan (1) Right inguinal pain: Etiology unclear at this time. Suspect hernia vs muscle strain vs infection. Patient is afebrile, hemodynamically stable, does not appear septic. His leukocytosis is stable (WBC=12.1, was 11.77 on day of discharge, 12.78 before then). Patient received Vancomycin and Zosyn in ER -Patient is currently receiving ceftriaxone. -His right thigh that appear to be infectious, but it is difficult to rule out. Will obtain ultrasound of the affected area to assess for possible abscess Will continue pain control. Agree with ID to continue antibiotics at this time. Inflammatory markers are elevated, but are improved as compared to his previous admission. We will continue to follow cultures * PT and OT assessment * Patient has developed diarrhea will place patient on lactobacillus * (2) Infection associated with internal left knee prosthesis: Patient with prolonged hospital stay last month with complaint of left knee pain. Prolonged hospital stay at [facility] prior to that secondary to infection of left knee prosthesis. Presently states his left knee feels ok. Patient was seen by ID during his prior hospital stay. He is to complete 6 weeks of antibiotics (started on 08/31/18. End date should be .) Patient with antibiotic spacer in place presently - will need future surgery, explant and replacement of prosthetic. He has a followup appointment with [facility] scheduled for 10/15/18. Ultimately will most likely require surgery performed at a tertiary care center. Patient is to followup with Dr. Serrano on 10/14/18. As noted above, will continue ceftriaxone 2 g IV daily * ID consultation as above - appreciate assistance * Pain control with Oxycontin 30mg po BID and Oxycodone 10mg po q 4 hours PRN * Would avoid IV pain medications as patient becomes somnolent and altered * (3) Hypertension: Blood pressure elevated at present, 163/97. * Continue Metoprolol 12.5mg po BID * Continue Amlodipine 10mg po daily * Continue to monitor. Patient may need additional agent for target BP control * (4) Borderline diabetes: Continue to monitor with fingersticks (5) Pneumonia: Patient found to have RLL cavitary lesions during last hospital stay c/w necrotizing PNA. Blood cultures from [place] 08/24 positive for strep pneumoniae , repeat cultures 08/31 and 09/[address] guided lung biopsy 09/27 that was negative. Transbronchial biopsy performed 09/[address] Sinclair which was negative for malignancy. Patient presently with no respiratory distress, no complaints of SOB/cough/wheeze. Lungs CTA. * Continue Ceftriaxone as above * Continue Steroid taper as above * (6) BISHOP (acute kidney injury): BUN=30, Cr=1.46, slightly above discharge value of 1.35. Patient states he is passing urine without difficulty. * Avoid nephrotoxic agents * Renal dosing where appropriate * Creat. improved to 1.37 on 10/09 (7) Anemia: Baseline HG of 10-11. Presently 7.5, normochromic/normocytic. No active bleeding. B12/folate normal on 09/15. Ferritin level elevated on 09/15 - acute phase reactant in setting of acute infection. Anemia thought to be secondary to malnutrition, cirrhosis, EtOH abuse. * Continue to monitor with daily CBC * Transfuse for active bleed, symptomatic anemia or Hg < 7 * (8) Cirrhosis, alcoholic: Compensated at present. * Continue to monitor * * * Spent 35 minutes in management of patient Subjective 58 year-old male seen and examined around 1800. Patient reports decreased swelling of his right upper thigh. Patient states that prior to coming to the hospital he had noticed the redness coming up from the medial aspect of his lower thigh all the way up to his groin. Patient is concerned for possible infection. Patient currently denies any fever chills nausea vomiting. Patient has been complaining of diarrhea during his hospital stay. Patient reports having imaging done to his affected extremity Constitutional: no sweats and no malaise Eyes: no diplopia Ear, Nose, Mouth, Throat: no ear trauma and no hyperacusis Gastrointestinal: no bloating Musculoskeletal: no loss of height and no swelling Integumentary: no acne Neurologic: no gait abnormality Physical Exam 2 Vital Signs (Past 24 Hours): Last Vital Signs Temp 37 C 10/09/18 15:28 Pulse 75 10/09/18 22:01 Resp 18 10/09/18 15:28 BP 152/80 H 10/09/18 22:01 Pulse Ox 100 10/09/18 15:28 Physical Exam: General: appears older than stated age, patient resting comfortably, no longer somnolent, oriented x 4, nontoxic in appearance Skin: warm, dry, intact, no rashes or lesions HEENT: NC/AT, PERRL, EOMI, anicteric sclera, conjunctiva without injection, moist mucus membranes, poor dentition, no oropharyngeal lesions, neck supple, trachea midline, no LAD, no thyromegaly, no JVD Heart: +S1/S2, regular, no m/r/g Lungs: equal air entry bilaterally, no rales/rhonchi/wheezes Abd: +BS, soft, NT/ND, no masses/organomegaly/ascites Ext: warm, 2+ pulses in UE/LE bilaterally, no clubbing/cyanosis, +edema bilaterally, immobilizer on left knee, possible 1x1 collection of fluid on right inner thigh, no erythema, or tenderness to palpation. Neuro: nonfocal, patient AA&O x 4, speech intact, no facial droop, moving all extremities on command with equal strength 5/5 _ (1) Anemia Anemia type: unspecified type Bone marrow failure anemia type: Chronic kidney disease stage: Folate deficiency anemia type: Hemolytic anemia type: Iron deficiency anemia type: Other causes of anemia: Vitamin B12 deficiency anemia type: Qualified Code(s): D64.9 - Anemia, unspecified (2) Cirrhosis, alcoholic Ascites presence: with ascites Qualified Code(s): K70.31 - Alcoholic cirrhosis of liver with ascites (3) Infection associated with internal left knee prosthesis Encounter type: sequela Qualified Code(s): T84.54XS - Infection and inflammatory reaction due to internal left knee prosthesis, sequela (4) Hypertension Hypertension type: essential hypertension Qualified Code(s): I10 - Essential (primary) hypertension (5) Pneumonia Aspiration pneumonia type: Laterality: right Lung location: unspecified part of lung Pneumonia type: due to unspecified organism Qualified Code(s): J18.9 - Pneumonia, unspecified organism
[2018-10-10] MEDS: OXYCODONE HCL IR 5 MG TAB (IMMEDIATE RELEASE) PO PRN ×4 (03:47→21:00)
[2018-10-10] MEDS: DiphenhydrAMINE HCL 50 MG/ML VIAL IV PRN ×4 (04:46→23:33)
[2018-10-10] MEDS: OXYCODONE HCL 15 MG TABCR (OXYCONTIN) PO SCH ×2 (08:51→20:59)
[2018-10-10] MEDS: LACTOBACILLUS ACIDOPHILUS (FLORANEX) TAB PO SCH ×4 (08:52→21:00)
[2018-10-10] MEDS: PANTOprazole 40 MG TAB PO SCH (08:52)
[2018-10-10] MEDS: AMLODIPINE BESYLATE 5 MG TAB PO SCH (08:53)
[2018-10-10] MEDS: METOPROLOL TARTRATE 25 MG TAB PO SCH ×2 (08:54→21:01)
[2018-10-10] MEDS: predniSONE 20 MG TAB PO SCH (08:55)
[2018-10-10] MEDS: cefTRIAXone SODIUM 2,000 MG in DEXTROSE 5% 50 ML IV SCH (09:03)
[2018-10-10 10:09] LABS: Basophils # (auto) 0.02 K/uL (0-0.2); Basophils % (auto) 0.2 %; Eosinophils # (auto) 0.33 K/uL (0-0.5); Eosinophils % (auto) 3.4 %; Hematocrit (blood only) 24.5 % (42-52); Hemoglobin 7.6 g/dL (14.0-18.0); Immature Granulocytes # (auto) 0.03 K/uL (0.00-0.02); Immature Granulocytes % (auto) 0.3 %; Lymphocytes # (auto) 2.52 K/uL (1.2-3.4); Lymphocytes % (auto) 25.9 %; Mean Corpuscular Volume 96.5 fL (80-100); Mean Platelet Volume 8.2 fL (7.4-10.4); Monocytes # (auto) 0.78 K/uL (0.11-0.59); Neutrophils # (auto) 6.04 K/uL (1.4-6.5); Neutrophils % (auto) 62.2 %; Platelet Count 264 K/uL (130-400); RDW Coefficient of Variation 18.2 % (11.5-14.5); Red Blood Count 2.54 M/uL (4.7-6.1); White Blood Count 9.72 K/uL (4.8-10.8)
[2018-10-10] MEDS: ENOXAPARIN INJ 40 MG/0.4 ML SYR SQ SCH (10:19)
[2018-10-10 10:29] LABS: BUN Creatinine Ratio 17.7 (10-20); Calcium 8.4 mg/dl (8.5-10.1); Creatinine Clr Calc Pharmacy 77.1 ml/min; Est GFR (African American) 65.8; Est GFR (Non-African American) 56.7; Potassium 4.5 mmol/L (3.5-5.1)
[2018-10-10 10:39] LABS: Anisocytosis Present; Hypochromasia Present
--- NOTE | 2018-10-10 11:32 | Ultrasound Report ---
US extremity non-vascular ltd CLINICAL HISTORY: 58 years-old Male presenting with RIGHT GROIN, and inneR thigh POSS ABSCESS . TECHNIQUE: Real-time grayscale ultrasound imaging of the right inguinal region was performed for a fo cused evaluation at the site of clinical concern. Color Doppler ultrasound imaging was also performed . COMPARISON: CT from 10/08/2018. FINDINGS: Diffuse subcutaneous edema suggested in the right inguinal region. Additionally, there is a complex, largely solid partially cystic 5.4 x 2.2 x 3.2 cm collection at the site of clinical interest in the medial right thigh. This is avascular on color Doppler. This is very well-defined with a well-defined wall. Surrounding fat infiltration suggested. Fat-containing right inguinal hernia, incompletely reducible with sonographic probe compression. Flui d also noted in the right inguinal canal as seen on CT. IMPRESSION: 1. Collection measuring up to 5.4 cm at the site of clinical concern. This is complex and largely so lid and minimally cystic. This is indeterminant. Sterility cannot be confirmed. This does not clearly correlate with a finding on the recent CT scan. Electronically signed by: Thom Mistry M.D. 10/10/2018 11:31 AM
--- NOTE | 2018-10-10 12:43 | XRay Report ---
[facility]UB CLINICAL HISTORY: Constipation and diarrhea. FINDINGS: 2 AP supine abdominal radiographs are compared to study dated 09/10/2018 and correlated with abdominal CT dated 10/08/2018. Cholecystectomy clips are seen in the right upper quadrant. No bowel ob struction is identified. Mild colonic fecal retention is observed. No evidence of intraperitoneal laurel e air is seen on these supine images. Suture material projects over the gastroesophageal junction. Th e skeletal structures are osteopenic. A right hip arthroplasty is in place. Consolidation and pleural effusion are seen at the right lung base. A catheter projects over the heart. IMPRESSION: Nonobstructed abdominal bowel gas pattern. Electronically signed by: Juan Panda M.D. 10/10/2018 12:41 PM
[2018-10-10] MEDS: LORazepam 1 MG TAB PO PRN (21:36)
--- NOTE | 2018-10-10 21:39 | Hospitalist Progress Note ---
Date of Service October 10, 2018 Assessment & Plan (1) Right inguinal pain: Etiology unclear at this time. Suspect hernia vs muscle strain vs infection. Patient is afebrile, hemodynamically stable, does not appear septic. His leukocytosis is stable (WBC=12.1, was 11.77 on day of discharge, 12.78 before then). Patient received Vancomycin and Zosyn in ER -Patient is currently receiving ceftriaxone. -Patient's right thigh looks signifcantly better on today's exam. Awating U/S of affected area. Will continue pain control. Agree with ID to continue antibiotics at this time. Patient is currently receiving ceftriaxone which he was receiving previously. Inflammatory markers are elevated, but are improved as compared to his previous admission. We will continue to follow cultures * PT and OT assessment * (10/09)Patient has developed diarrhea will place patient on lactobacillus * If diarrhea does not improve today, (10/10), will obtain c. diff. (2) Infection associated with internal left knee prosthesis: Patient with prolonged hospital stay last month with complaint of left knee pain. Prolonged hospital stay at [facility] prior to that secondary to infection of left knee prosthesis. Presently states his left knee feels ok. Patient was seen by ID during his prior hospital stay. He is to complete 6 weeks of antibiotics (started on 08/31/18. End date should be .) Patient with antibiotic spacer in place presently - will need future surgery, explant and replacement of prosthetic. He has a followup appointment with [facility] scheduled for 10/15/18. Ultimately will most likely require surgery performed at a tertiary care center. Patient is to followup with Dr. Serrano on 10/14/18. As noted above, will continue ceftriaxone 2 g IV daily * ID consultation as above - appreciate assistance * Pain control with Oxycontin 30mg po BID and Oxycodone 10mg po q 4 hours PRN * Would avoid IV pain medications as patient becomes somnolent and altered * (3) Hypertension: Blood pressure has been at goal on 10/10 * Continue Metoprolol 12.5mg po BID * Continue Amlodipine 10mg po daily * Continue to monitor. * (4) Borderline diabetes: Continue to monitor with fingersticks (5) Pneumonia: Patient found to have RLL cavitary lesions during last hospital stay c/w necrotizing PNA. Blood cultures from [place] 08/24 positive for strep pneumoniae , repeat cultures 08/31 and 09/[address] guided lung biopsy 09/27 that was negative. Transbronchial biopsy performed 09/[address] Sinclair which was negative for malignancy. Patient presently with no respiratory distress, no complaints of SOB/cough/wheeze. Lungs CTA. * Continue Ceftriaxone as above * Continue Steroid taper as above * (6) BISHOP (acute kidney injury): BUN=30, Cr=1.46, slightly above discharge value of 1.35. Patient states he is passing urine without difficulty. * Avoid nephrotoxic agents * Renal dosing where appropriate * Creat. improved to 1.38 on 10/10 (7) Anemia: Baseline HG of 10-11. Presently 7.5, normochromic/normocytic. No active bleeding. B12/folate normal on 09/15. Ferritin level elevated on 09/15 - acute phase reactant in setting of acute infection. Anemia thought to be secondary to malnutrition, cirrhosis, EtOH abuse. * Continue to monitor with daily CBC * Transfuse for active bleed, symptomatic anemia or Hg < 7 * (8) Cirrhosis, alcoholic: Compensated at present. * Continue to monitor * * * Spent 25 minutes in management of patient Subjective 58 year-old male seen and examined this a.m. Patient states he continues to have diarrhea. Patient is also concerned about not be able to return to his nursing facility. Patient states that his pain in his right groin has decreased significantly since he has been here. Patient denies any fever chills. Currently his main complaint is his diarrhea Physical Exam 2 Vital Signs (Past 24 Hours): Last Vital Signs Temp 36.6 C 10/10/18 18:57 Pulse 85 10/10/18 20:58 Resp 19 10/10/18 15:37 BP 150/79 H 10/10/18 20:58 Pulse Ox 100 10/10/18 15:37 Physical Exam: General: appears older than stated age, patient resting comfortably, oriented x 4, nontoxic in appearance Skin: warm, dry, intact, no rashes or lesions HEENT: NC/AT, PERRL, EOMI, anicteric sclera, conjunctiva without injection, moist mucus membranes, poor dentition, no oropharyngeal lesions, neck supple, trachea midline, no LAD, no thyromegaly, no JVD Heart: +S1/S2, regular, no m/r/g Lungs: equal air entry bilaterally, no rales/rhonchi/wheezes Abd: +BS, soft, NT/ND, no masses/organomegaly/ascites Ext: warm, 2+ pulses in UE/LE bilaterally, no clubbing/cyanosis, +edema bilaterally, immobilizer on left knee, unable to find any collection of fluid or mass on today's exam, no erythema, or tenderness to palpation. Neuro: nonfocal, patient AA&O x 4, speech intact, no facial droop, moving all extremities on command with equal strength 5/ _ (1) Anemia Anemia type: unspecified type Bone marrow failure anemia type: Chronic kidney disease stage: Folate deficiency anemia type: Hemolytic anemia type: Iron deficiency anemia type: Other causes of anemia: Vitamin B12 deficiency anemia type: Qualified Code(s): D64.9 - Anemia, unspecified (2) Cirrhosis, alcoholic Ascites presence: with ascites Qualified Code(s): K70.31 - Alcoholic cirrhosis of liver with ascites (3) Infection associated with internal left knee prosthesis Encounter type: sequela Qualified Code(s): T84.54XS - Infection and inflammatory reaction due to internal left knee prosthesis, sequela (4) Hypertension Hypertension type: essential hypertension Qualified Code(s): I10 - Essential (primary) hypertension (5) Pneumonia Aspiration pneumonia type: Laterality: right Lung location: unspecified part of lung Pneumonia type: due to unspecified organism Qualified Code(s): J18.9 - Pneumonia, unspecified organism
[2018-10-11] MEDS: OXYCODONE HCL IR 5 MG TAB (IMMEDIATE RELEASE) PO PRN ×5 (01:30→22:03)
[2018-10-11] MEDS: DiphenhydrAMINE HCL 50 MG/ML VIAL IV PRN ×4 (05:38→22:04)
[2018-10-11] MEDS: LACTOBACILLUS ACIDOPHILUS (FLORANEX) TAB PO SCH ×4 (08:40→20:57)
[2018-10-11] MEDS: cefTRIAXone SODIUM 2,000 MG in DEXTROSE 5% 50 ML IV SCH (08:40)
[2018-10-11] MEDS: OXYCODONE HCL 15 MG TABCR (OXYCONTIN) PO SCH ×2 (09:17→20:59)
[2018-10-11] MEDS: METOPROLOL TARTRATE 25 MG TAB PO SCH ×2 (09:18→20:58)
[2018-10-11] MEDS: predniSONE 20 MG TAB PO SCH (09:19)
[2018-10-11] MEDS: PANTOprazole 40 MG TAB PO SCH (09:19)
[2018-10-11] MEDS: ENOXAPARIN INJ 40 MG/0.4 ML SYR SQ SCH (09:20)
[2018-10-11] MEDS: AMLODIPINE BESYLATE 5 MG TAB PO SCH (09:20)
[2018-10-11] MEDS: LORazepam 1 MG TAB PO PRN (22:03)
--- NOTE | 2018-10-11 23:06 | Hospitalist Progress Note ---
Date of Service October 11, 2018 Assessment & Plan (1) Right inguinal pain: Etiology unclear at this time. Suspect hernia vs muscle strain vs infection. Patient is afebrile, hemodynamically stable, does not appear septic. His leukocytosis is stable (WBC=12.1, was 11.77 on day of discharge, 12.78 before then). Patient received Vancomycin and Zosyn in ER -Patient is currently receiving ceftriaxone. -Patient's right thigh looks signifcantly better on today's exam. (10/11) U/S of groin completed: there is a complex, largely solid partially cystic 5.4 x 2.2 x 3.2 cm collection at the site of clinical interest in the medial right thigh. This is avascular on color Doppler. This is very well-defined with a well-defined wall. Surrounding fat infiltration suggested. Will continue pain control. Agree with ID to continue antibiotics at this time. Patient is currently receiving ceftriaxone which he was receiving previously. Inflammatory markers are elevated, but are improved as compared to his previous admission. We will continue to follow cultures Given above imaging, will consult gen surgery. (2) Infection associated with internal left knee prosthesis: Patient with prolonged hospital stay last month with complaint of left knee pain. Prolonged hospital stay at [facility] prior to that secondary to infection of left knee prosthesis. Presently states his left knee feels ok. Patient was seen by ID during his prior hospital stay. He is to complete 6 weeks of antibiotics (started on 08/31/18. End date should be .) Patient with antibiotic spacer in place presently - will need future surgery, explant and replacement of prosthetic. He has a followup appointment with [facility] scheduled for 10/15/18. Ultimately will most likely require surgery performed at a tertiary care center. Patient is to followup with Dr. Serrano on 10/14/18. As noted above, will continue ceftriaxone 2 g IV daily * ID consultation as above - appreciate assistance * Pain control with Oxycontin 30mg po BID and Oxycodone 10mg po q 4 hours PRN * Would avoid IV pain medications as patient becomes somnolent and altered (3) Hypertension: Blood pressure has been at goal on 10/10 * Continue Metoprolol 12.5mg po BID * Continue Amlodipine 10mg po daily * Continue to monitor. (4) Borderline diabetes: Continue to monitor with fingersticks (5) Pneumonia: Patient found to have RLL cavitary lesions during last hospital stay c/w necrotizing PNA. Blood cultures from [place] 08/24 positive for strep pneumoniae , repeat cultures 08/31 and 09/[address] guided lung biopsy 09/27 that was negative. Transbronchial biopsy performed 09/[address] Sinclair which was negative for malignancy. Patient presently with no respiratory distress, no complaints of SOB/cough/wheeze. Lungs CTA. * Continue Ceftriaxone as above * Continue Steroid taper as above (6) BISHOP (acute kidney injury): BUN=30, Cr=1.46, slightly above discharge value of 1.35. Patient states he is passing urine without difficulty. * Avoid nephrotoxic agents * Renal dosing where appropriate * Creat. improved to 1.38 on 10/10 * Will repeat in 2 days. (7) Anemia: Baseline HG of 10-11. Presently 7.5, normochromic/normocytic. No active bleeding. B12/folate normal on 09/15. Ferritin level elevated on 09/15 - acute phase reactant in setting of acute infection. Anemia thought to be secondary to malnutrition, cirrhosis, EtOH abuse. * Continue to monitor with daily CBC * Transfuse for active bleed, symptomatic anemia or Hg < 7 * (8) Cirrhosis, alcoholic: Compensated at present. * Continue to monitor * * * Spent 25 minutes in management of patient Subjective 58 year-old male seen and examined in the PM. Patient reports no changes with regard regarding his diarrhea. Patient reports decreased pain in his right groin area. Patient denies any fever chills nausea vomiting. Physical Exam 2 Vital Signs (Past 24 Hours): Last Vital Signs Temp 37.0 C 10/11/18 15: Pulse 71 10/11/18 20:45 Resp 18 10/11/18 15: BP 145/77 H 10/11/18 20:45 Pulse Ox 100 10/11/18 15:19 Physical Exam: General: appears older than stated age, patient resting comfortably, oriented x 4, nontoxic in appearance Skin: warm, dry, intact, no rashes or lesions HEENT: NC/AT, PERRL, EOMI, anicteric sclera, conjunctiva without injection, moist mucus membranes, poor dentition, no oropharyngeal lesions, neck supple, trachea midline, no LAD, no thyromegaly, no JVD Heart: +S1/S2, regular, no m/r/g Lungs: equal air entry bilaterally, no rales/rhonchi/wheezes Abd: +BS, soft, NT/ND, no masses/organomegaly/ascites Ext: warm, 2+ pulses in UE/LE bilaterally, no clubbing/cyanosis, +edema bilaterally, immobilizer on left knee, unable to find any collection of fluid or mass on today's exam, no erythema, or tenderness to palpation. Neuro: nonfocal, patient AA&O x 4, speech intact, no facial droop, moving all extremities on command with equal strength 5/5 _ (1) Anemia Anemia type: unspecified type Bone marrow failure anemia type: Chronic kidney disease stage: Folate deficiency anemia type: Hemolytic anemia type: Iron deficiency anemia type: Other causes of anemia: Vitamin B12 deficiency anemia type: Qualified Code(s): D64.9 - Anemia, unspecified (2) Cirrhosis, alcoholic Ascites presence: with ascites Qualified Code(s): K70.31 - Alcoholic cirrhosis of liver with ascites (3) Infection associated with internal left knee prosthesis Encounter type: sequela Qualified Code(s): T84.54XS - Infection and inflammatory reaction due to internal left knee prosthesis, sequela (4) Hypertension Hypertension type: essential hypertension Qualified Code(s): I10 - Essential (primary) hypertension (5) Pneumonia Aspiration pneumonia type: Laterality: right Lung location: unspecified part of lung Pneumonia type: due to unspecified organism Qualified Code(s): J18.9 - Pneumonia, unspecified organism
[2018-10-12] MEDS: OXYCODONE HCL IR 5 MG TAB (IMMEDIATE RELEASE) PO PRN ×5 (02:15→22:30)
[2018-10-12] MEDS: DiphenhydrAMINE HCL 50 MG/ML VIAL IV PRN ×4 (04:25→23:46)
[2018-10-12] MEDS: cefTRIAXone SODIUM 2,000 MG in DEXTROSE 5% 50 ML IV SCH (08:08)
[2018-10-12] MEDS: LACTOBACILLUS ACIDOPHILUS (FLORANEX) TAB PO SCH ×4 (08:08→21:38)
[2018-10-12] MEDS: ENOXAPARIN INJ 40 MG/0.4 ML SYR SQ SCH (08:55)
[2018-10-12] MEDS: PANTOprazole 40 MG TAB PO SCH (08:55)
[2018-10-12] MEDS: AMLODIPINE BESYLATE 5 MG TAB PO SCH (08:56)
[2018-10-12] MEDS: METOPROLOL TARTRATE 25 MG TAB PO SCH ×2 (08:56→21:38)
[2018-10-12] MEDS: predniSONE 20 MG TAB PO SCH (08:56)
[2018-10-12] MEDS: OXYCODONE HCL 15 MG TABCR (OXYCONTIN) PO SCH ×2 (08:57→21:38)
--- NOTE | 2018-10-12 09:29 | Surgery Consultation ---
Date of Consultation October 12, 2018 Assessment & Plan (1) Mass of right thigh: US done shows solid /partially cystic mass on right upper thigh over area of pain should be excised for definitive tx as well as diagnosis prior to his left knee re-do pt ate today...will plan excision tomorrow am in the OR discussed options/risks ( bleeding/infection/nerve injury/injury to other anatomy/dvt/pe/mi/cva etc...) questions answered History of Present Illness Attending Physician: Renzo Montes History of Present Illness pt with multiple medical issues recently admitted to [facility] with infected left knee...was readmitted here with right groin/upper thigh pain. was seen initially by Dr. Gomez. the pain is localized to a spot on his upper /inner right thigh. Allergies Allergy/AdvReac Type Severity Reaction Status Date / Time No Known Allergies Allergy Verified 09/10/18 06:28 Home Medications Home Medications Medication Instructions Recorded Confirmed Type acetaminophen [Mapap 650 mg PO Q4H PRN 30 Days #60 tab 10/04/18 10/08/18 Rx (acetaminophen)] amlodipine [Norvasc] 10 mg PO QAM 30 Days #60 tab 10/04/18 10/08/18 Rx ceftriaxone 2 gm IV DAILY 28 Days #28 ea 10/04/18 10/08/18 Rx diphenhydramine HCl [Benadryl 25 mg PO Q8H PRN #30 tab 10/04/18 10/08/18 Rx Allergy] lorazepam 1 mg PO HS PRN 30 Days #30 tab 10/04/18 10/08/18 Rx metoprolol tartrate 12.5 mg PO BID 30 Days #30 tab 10/04/18 10/08/18 Rx oxycodone 10 mg PO Q4H PRN 14 Days #84 tab 10/04/18 10/08/18 Rx oxycodone [OxyContin] 30 mg PO Q12H 14 Days #56 tab 10/04/18 10/08/18 Rx prednisone 40 mg PO UD 21 Days #25 tab 10/04/18 10/08/18 Rx Patient History Medical History Right inguinal pain PTSD (post-traumatic stress disorder) (Chronic) Heroin overdose (Chronic) Anemia Borderline diabetes CKD (chronic kidney disease) Cavitary lesion of lung Cirrhosis High blood pressure Surgical History History of gastric bypass History of hernia repair Hx of foot surgery Status post left knee replacement With multiple revisions. Presently with antibiotic spacer in place Family History Other Diabetes Heart disease Social History marital status: Current Living Situation: Rehab Other Information That Helps Us Care for You: No Feels Safe at Home: Yes Safety Concerns: Feels Safe At This Time Smoking Status: Former smoker Tobacco Type: cigarettes Hx Alcohol Use: Yes Alcohol Intake Frequency: 3 or more drinks per day Hx Substance Use: Yes substance use type: former substance user, heroin and IV drugs Beliefs That Will Affect Care: None Communication Ability: Effective Review of Systems right thigh pain. left knee pain Physical Exam 2 Vital Signs (Past 24 Hours): Last Vital Signs Temp 37.3 C 10/12/18 07:20 Pulse 80 10/12/18 07:20 Resp 16 10/12/18 07:20 BP 147/74 H 10/12/18 07:20 Pulse Ox 98 10/12/18 07:20 Physical Exam: alert/oriented. NAD Heart: RRR lungs: decreased bs's bases abdomen: soft. nt ext: right thigh with deep soft tissue mass. tender. left knee in brace. swollen
[2018-10-12] MEDS: HYDROmorphone INJ 1 MG/ML SYRINGE IV PRN ×2 (10:25→23:46)
--- NOTE | 2018-10-12 14:21 | Anesthesiology Consultation ---
Date of Service October 12, 2018 Assessment & Plan (1) Encounter for pre-operative examination: Chart Review Chart Review: Acceptable Risk for Surgery History Surgery Operation Date: 10/13/18 07:30 Proposed Procedures p Minor Excision(Right) - Demarco Carrion DO Height/Weight Height: 6 ft Weight: 111.6 kg Allergies Allergy/AdvReac Type Severity Reaction Status Date / Time No Known Allergies Allergy Verified 09/10/18 06:28 Medications Home Medications Medication Instructions Recorded Confirmed Last Taken acetaminophen [Mapap 650 mg PO Q4H PRN 30 Days #60 tab 10/04/18 10/08/18 Unknown (acetaminophen)] amlodipine [Norvasc] 10 mg PO QAM 30 Days #60 tab 10/04/18 10/08/18 Unknown ceftriaxone 2 gm IV DAILY 28 Days #28 ea 10/04/18 10/08/18 Unknown diphenhydramine HCl [Benadryl 25 mg PO Q8H PRN #30 tab 10/04/18 10/08/18 Unknown Allergy] lorazepam 1 mg PO HS PRN 30 Days #30 tab 10/04/18 10/08/18 Unknown metoprolol tartrate 12.5 mg PO BID 30 Days #30 tab 10/04/18 10/08/18 Unknown oxycodone 10 mg PO Q4H PRN 14 Days #84 tab 10/04/18 10/08/18 Unknown oxycodone [OxyContin] 30 mg PO Q12H 14 Days #56 tab 10/04/18 10/08/18 Unknown prednisone 40 mg PO UD 21 Days #25 tab 10/04/18 10/08/18 Unknown Active Medications Generic Name Dose Route Start Last Admin Trade Name Freq PRN Reason Stop Dose Admin Amlodipine Besylate 10 mg 10/09/18 09:00 10/13/18 09:10 Norvasc PO 11/08/18 08:59 10 mg QAM JERSON Administration Diphenhydramine HCl 25 mg 10/13/18 11:09 10/13/18 12:08 Benadryl PO 11/12/18 11:08 25 mg Q4H PRN Administration itchy Enoxaparin Sodium 40 mg 10/09/18 09:00 10/12/18 08:55 Lovenox SQ 11/08/18 08:59 Not Given QAM JERSON Hydromorphone HCl 1 mg 10/13/18 11:10 10/13/18 18:07 Dilaudid IV 10/26/18 08:55 1 mg Q6H PRN Administration Severe Pain 7,8 Ceftriaxone Sodium 2,000 mg/ 50 mls @ 100 mls/hr 10/09/18 08:00 10/13/18 09: 47 Dextrose IV 11/08/18 07:59 Infused Q24H JERSON Infusion Lactobacillus Acidophilus 4 tab 10/09/18 12:00 10/13/18 15:54 Floranex PO 11/08/18 11:59 Not Given QIDM JERSON Lorazepam 1 mg 10/08/18 21:17 10/13/18 01:03 Ativan PO 11/07/18 21:16 1 mg HS PRN Administration insomnia Metoprolol Tartrate 12.5 mg 10/08/18 21:17 10/13/18 09:09 Lopressor PO 11/07/18 21:16 12.5 mg BID JERSON Administration Oxycodone HCl 30 mg 10/08/18 21:17 10/13/18 09:09 Oxycontin PO 10/22/18 21:16 30 mg Q12H JERSON Administration Oxycodone HCl 10 mg 10/08/18 21:17 10/13/18 14:30 Roxicodone Immediate Rel PO 10/22/18 21:16 10 mg Q4H PRN Administration pain Pantoprazole Sodium 40 mg 10/09/18 09:00 10/13/18 09:09 Protonix PO 11/08/18 08:59 Not Given DAILY JERSON Prednisone 40 mg 10/09/18 09:00 10/13/18 09:10 Prednisone PO 10/31/18 08:59 40 mg DAILY JERSON Administration Taper Past Medical History Medical History Right inguinal pain PTSD (post-traumatic stress disorder) (Chronic) Heroin overdose (Chronic) Anemia Borderline diabetes CKD (chronic kidney disease) Cavitary lesion of lung Cirrhosis High blood pressure Past Family History Family History Other Diabetes Heart disease Past Surgical History Surgical History History of gastric bypass History of hernia repair Hx of foot surgery Status post left knee replacement With multiple revisions. Presently with antibiotic spacer in place Social History Smoking Status: Former smoker tobacco type: cigarettes Hx Alcohol Use: Yes alcohol intake frequency: 3 or more drinks per day Hx Substance Use: Yes substance use type: former substance user, heroin and IV drugs Physical Exam Vital Signs Last Vital Signs Temp 36.6 C 10/13/18 15:10 Pulse 67 10/13/18 15:10 Resp 18 10/13/18 15:10 BP 134/81 10/13/18 15:10 Pulse Ox 100 10/13/18 15:10 Testing Electrocardiogram Date: 10/11/18 Findings: + NSR @ (85) Chest X-Ray Date: 10/11/18 No evidence of pneumothorax status post endobronchial biopsy Echocardiogram Date: 09/24/18 EF: 55-60% LV Function: normal Laboratory Results 10/13/18 11:04 10/13/18 11:04 PT 10.8 Seconds (9.0-12.0) 10/08/18 14:40 INR 1.1 (0.9-1.1) 10/08/18 14:40 APTT 25.4 Seconds (21.0-31.0) 10/08/18 14:40 10/08/18 18:13 Blood Culture - Preliminary Blood No growth to date. 10/08/18 18:11 Blood Culture - Preliminary Blood No growth to date. 10/13/18 10/13/18 12:05 08:05 POC Glucose 104 H 94
[2018-10-12 15:46] LABS: Hematocrit (blood only) 23.8 % (42-52); Hemoglobin 7.6 g/dL (14.0-18.0); Mean Corpuscular Hgb Conc 31.9 g/dL (32-36); Mean Corpuscular Volume 96.7 fL (80-100); Mean Platelet Volume 7.7 fL (7.4-10.4); Platelet Count 242 K/uL (130-400); RDW Coefficient of Variation 17.9 % (11.5-14.5); RDW Standard Deviation 63.4 fL (36.4-46.3); Red Blood Count 2.46 M/uL (4.7-6.1); White Blood Count 9.66 K/uL (4.8-10.8)
--- NOTE | 2018-10-12 21:44 | Hospitalist Progress Note ---
Date of Service October 12, 2018 Assessment & Plan (1) Right inguinal pain: Etiology unclear at this time. Suspect hernia vs muscle strain vs infection. Patient is afebrile, hemodynamically stable, does not appear septic. His leukocytosis is stable (WBC=12.1, was 11.77 on day of discharge, 12.78 before then). Patient received Vancomycin and Zosyn in ER -Patient is currently receiving ceftriaxone. -Patient's right thigh looks signifcantly better on today's exam. (10/11) U/S of groin completed: there is a complex, largely solid partially cystic 5.4 x 2.2 x 3.2 cm collection at the site of clinical interest in the medial right thigh. This is avascular on color Doppler. This is very well-defined with a well-defined wall. Surrounding fat infiltration suggested. Will continue pain control. Agree with ID to continue antibiotics at this time. Patient is currently receiving ceftriaxone which he was receiving previously. Inflammatory markers are elevated, but are improved as compared to his previous admission. Consulted Gen Surgery, will hold lovenox, will schedule surgery for tomorrow to remove this solid collection. Unsure what it may be, perhaps a needle, or foreign body. (2) Infection associated with internal left knee prosthesis: Patient with prolonged hospital stay last month with complaint of left knee pain. Prolonged hospital stay at [facility] prior to that secondary to infection of left knee prosthesis. Presently states his left knee feels ok. Patient was seen by ID during his prior hospital stay. He is to complete 6 weeks of antibiotics (started on 08/31/18. End date should be .) Patient with antibiotic spacer in place presently - will need future surgery, explant and replacement of prosthetic. He has a followup appointment with [facility] scheduled for 10/15/18. Ultimately will most likely require surgery performed at a tertiary care center. Patient is to followup with Dr. Serrano on 10/14/18. As noted above, will continue ceftriaxone 2 g IV daily * ID consultation as above - appreciate assistance * Pain control with Oxycontin 30mg po BID and Oxycodone 10mg po q 4 hours PRN * Would avoid IV pain medications as patient becomes somnolent and altered * * Today should be final day of antibiotics, however will continue as unsure if solid cystic collection may be an infection. (10/12) Patient is asking for more pain medicine. Added a PRN dilaudid BID. (3) Hypertension: Blood pressure has been at goal on 10/10 * Continue Metoprolol 12.5mg po BID * Continue Amlodipine 10mg po daily * Continue to monitor. (4) Borderline diabetes: Continue to monitor with fingersticks (5) Pneumonia: Patient found to have RLL cavitary lesions during last hospital stay c/w necrotizing PNA. Blood cultures from [place] 08/24 positive for strep pneumoniae , repeat cultures 08/31 and 09/[address] guided lung biopsy 09/27 that was negative. Transbronchial biopsy performed 09/[address] Sinclair which was negative for malignancy. Patient presently with no respiratory distress, no complaints of SOB/cough/wheeze. Lungs CTA. * Continue Ceftriaxone as above * Continue Steroid taper as above (6) BISHOP (acute kidney injury): Cr. 1.38 slightly above discharge value of 1.35. Patient states he is passing urine without difficulty. * Avoid nephrotoxic agents * Renal dosing where appropriate * Creat. improved to 1.38 on 10/10 * Will repeat in AM. (7) Anemia: Baseline HG of 10-11. Presently 7.5, normochromic/normocytic. No active bleeding. B12/folate normal on 09/15. Ferritin level elevated on 09/15 - acute phase reactant in setting of acute infection. Anemia thought to be secondary to malnutrition, cirrhosis, EtOH abuse. * Continue to monitor with daily CBC * Transfuse for active bleed, symptomatic anemia or Hg < 7 * * hemoglobin has been stable (10/12) (8) Insomnia: Insomnia Patient is also complaining of insomnia, patient states that he is not able to stay asleep. Pain is to have patient keep a diary of his sleep hours. I belive patient is getting enough sleep, it is just intermittent due to him being in the hospital. It does not appear that patient has difficulty falling asleep, it is maintaining it that is the issue. D/W nurse, will have patient take aye later in the night perhaps at 1 in the morning as this is when patient wakes up (9) Cirrhosis, alcoholic: Compensated at present. * Continue to monitor * * * * * Spent 35 minutes in management of patient Subjective Patient today has multiple complaints. He is complaining of his right hip pain, He states that he has been itching all over and is requesting benadryl. Patient states that his pain is not being controlled and will require more medicine. He state sthat his previous pain regimen while he was in the hospital helped. He does state that he is more ambulatory in the past 24 hours, and has been able to go to the bathroom. Physical Exam 2 Vital Signs (Past 24 Hours): Last Vital Signs Temp 36.7 C 10/12/18 14:55 Pulse 77 10/12/18 14:55 Resp 19 10/12/18 14:55 BP 132/77 10/12/18 14:55 Pulse Ox 99 10/12/18 14:55 Physical Exam: General: appears older than stated age, patient resting comfortably, oriented x 4, nontoxic in appearance Skin: warm, dry, intact, no rashes or lesions HEENT: NC/AT, PERRL, EOMI, anicteric sclera, conjunctiva without injection, moist mucus membranes, poor dentition, no oropharyngeal lesions, neck supple, trachea midline, no LAD, no thyromegaly, no JVD Heart: +S1/S2, regular, no m/r/g Lungs: equal air entry bilaterally, no rales/rhonchi/wheezes Abd: +BS, soft, NT/ND, no masses/organomegaly/ascites Ext: warm, 2+ pulses in UE/LE bilaterally, no clubbing/cyanosis, +edema bilaterally, immobilizer on left knee, unable to find any collection of fluid or mass on today's exam, no erythema, or tenderness to palpation. Neuro: nonfocal, patient AA&O x 4, speech intact, no facial droop, moving all extremities on command with equal strength 5/5 _ (1) Infection associated with internal left knee prosthesis Encounter type: sequela Qualified Code(s): T84.54XS - Infection and inflammatory reaction due to internal left knee prosthesis, sequela (2) Hypertension Hypertension type: essential hypertension Qualified Code(s): I10 - Essential (primary) hypertension (3) Pneumonia Aspiration pneumonia type: Laterality: right Lung location: unspecified part of lung Pneumonia type: due to unspecified organism Qualified Code(s): J18.9 - Pneumonia, unspecified organism (4) Anemia Anemia type: unspecified type Iron deficiency anemia type: Vitamin B12 deficiency anemia type: Folate deficiency anemia type: Bone marrow failure anemia type: Hemolytic anemia type: Other causes of anemia: Chronic kidney disease stage: Qualified Code(s): D64.9 - Anemia, unspecified (5) Cirrhosis, alcoholic Ascites presence: with ascites Qualified Code(s): K70.31 - Alcoholic cirrhosis of liver with ascites
[2018-10-13] MEDS: LORazepam 1 MG TAB PO PRN (01:03)
[2018-10-13] MEDS: OXYCODONE HCL IR 5 MG TAB (IMMEDIATE RELEASE) PO PRN ×4 (06:10→23:28)
[2018-10-13] MEDS: DiphenhydrAMINE HCL 50 MG/ML VIAL IV PRN (06:11)
[2018-10-13] MEDS: LACTOBACILLUS ACIDOPHILUS (FLORANEX) TAB PO SCH ×4 (09:08→21:43)
[2018-10-13] MEDS: PANTOprazole 40 MG TAB PO SCH (09:09)
[2018-10-13] MEDS: METOPROLOL TARTRATE 25 MG TAB PO SCH ×2 (09:09→21:49)
[2018-10-13] MEDS: OXYCODONE HCL 15 MG TABCR (OXYCONTIN) PO SCH ×2 (09:09→21:48)
[2018-10-13] MEDS: predniSONE 20 MG TAB PO SCH (09:10)
[2018-10-13] MEDS: AMLODIPINE BESYLATE 5 MG TAB PO SCH (09:10)
[2018-10-13] MEDS: cefTRIAXone SODIUM 2,000 MG in DEXTROSE 5% 50 ML IV SCH (09:11)
[2018-10-13 11:15] LABS: Basophils # (auto) 0.05 K/uL (0-0.2); Basophils % (auto) 0.5 %; Eosinophils # (auto) 0.41 K/uL (0-0.5); Eosinophils % (auto) 4.1 %; Hematocrit (blood only) 23.9 % (42-52); Hemoglobin 7.4 g/dL (14.0-18.0); Immature Granulocytes # (auto) 0.04 K/uL (0.00-0.02); Immature Granulocytes % (auto) 0.4 %; Lymphocytes # (auto) 1.52 K/uL (1.2-3.4); Mean Corpuscular Volume 95.6 fL (80-100); Mean Platelet Volume 8.2 fL (7.4-10.4); Monocytes # (auto) 0.44 K/uL (0.11-0.59); Monocytes % (auto) 4.3 %; Neutrophils # (auto) 7.66 K/uL (1.4-6.5); Neutrophils % (auto) 75.7 %; Platelet Count 243 K/uL (130-400); RDW Standard Deviation 63.2 fL (36.4-46.3); White Blood Count 10.12 K/uL (4.8-10.8)
--- NOTE | 2018-10-13 11:20 | Hospitalist Progress Note ---
Date of Service October 13, 2018 Assessment & Plan (1) Right inguinal pain: Etiology unclear at this time. Suspect hernia vs muscle strain vs infection. Patient is afebrile, hemodynamically stable, does not appear septic. His leukocytosis is stable (WBC=12.1, was 11.77 on day of discharge, 12.78 before then). Patient received Vancomycin and Zosyn in ER -Patient is currently receiving ceftriaxone. -Patient's right thigh looks well today. (10/13) No change from 10/11. U/S of groin completed: there is a complex, largely solid partially cystic 5.4 x 2.2 x 3.2 cm collection at the site of clinical interest in the medial right thigh. This is avascular on color Doppler. This is very well-defined with a well-defined wall. Surrounding fat infiltration suggested. Will continue pain control. Agree with ID to continue antibiotics at this time. Patient is currently receiving ceftriaxone which he was receiving previously. Inflammatory markers are elevated, but are improved as compared to his previous admission. Consulted Gen Surgery, will hold lovenox, will have surgery today to remove this solid collection. Unsure what it may be, perhaps a needle, or foreign body. In regards to his pain medicine, will increase frequency of his dialudid to q6h. 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 (2) Infection associated with internal left knee prosthesis: Patient with prolonged hospital stay last month with complaint of left knee pain. Prolonged hospital stay at [facility] prior to that secondary to infection of left knee prosthesis. Presently states his left knee feels ok. Patient was seen by ID during his prior hospital stay. He is to complete 6 weeks of antibiotics (started on 08/31/18. End date should be .) Patient with antibiotic spacer in place presently - will need future surgery, explant and replacement of prosthetic. He has a followup appointment with [facility] scheduled for 10/15/18. Ultimately will most likely require surgery performed at a tertiary care center. Patient is to followup with Dr. Serrano on 10/14/18. As noted above, will continue ceftriaxone 2 g IV daily * ID consultation as above - appreciate assistance * Pain control with Oxycontin 30mg po BID and Oxycodone 10mg po q 4 hours PRN * Would avoid IV pain medications as patient becomes somnolent and altered * * Should have ended on 10/12, however will continue as unsure if solid cystic collection may be an infection. (10/13) (3) Hypertension: Blood pressure has been at goal on 10/10 * Continue Metoprolol 12.5mg po BID * Continue Amlodipine 10mg po daily * Continue to monitor. (4) Borderline diabetes: Continue to monitor with fingersticks (5) Pneumonia: Patient found to have RLL cavitary lesions during last hospital stay c/w necrotizing PNA. Blood cultures from [place] 08/24 positive for strep pneumoniae , repeat cultures 08/31 and 09/[address] guided lung biopsy 09/27 that was negative. Transbronchial biopsy performed 09/[address] Sinclair which was negative for malignancy. Patient presently with no respiratory distress, no complaints of SOB/cough/wheeze. Lungs CTA. * Continue Ceftriaxone as above * Continue Steroid taper as above (6) BISHOP (acute kidney injury): Cr. 1.38 slightly above discharge value of 1.35. Patient states he is passing urine without difficulty. * Avoid nephrotoxic agents * Renal dosing where appropriate * Creat. improved to 1.38 on 10/10 * Awaiting morning labs.hemoglob (7) Anemia: Baseline HG of 10-11. Presently 7.5, normochromic/normocytic. No active bleeding. B12/folate normal on 09/15. Ferritin level elevated on 09/15 - acute phase reactant in setting of acute infection. Anemia thought to be secondary to malnutrition, cirrhosis, EtOH abuse. * Continue to monitor with daily CBC * Transfuse for active bleed, symptomatic anemia or Hg < 7 * * hemoglobin has been stable at 7.4 (10/13) (8) Insomnia: Insomnia Patient is also complaining of insomnia, patient states that he is not able to stay asleep. Pain is to have patient keep a diary of his sleep hours, recommended on 10/12, however patient did not do this today 10/13, Patient is likely getting enough sleep, it is just intermittent due to him being in the hospital. It does not appear that patient has difficulty falling asleep, it is maintaining it that is the issue. D/W nurse, will have patient take benzo later in the night perhaps at 1 in the morning as this is when patient wakes up (9) Cirrhosis, alcoholic: Compensated at present. * Continue to monitor * * Patient is having pruritus, will increase frequency of his benadryl, but will switch it to PO and decrease dose to 25 mg. Concerned over the fact that patient was drowsy. * * * Subjective Patient reports today that he is very hungry He is asking when his surgery will be scheduled. He also states that his pain is a 8/10, and that the diaudid helps however, he states he would like it more frequent, perhaps every 4 hours. He also states that he is having isues falling alseep. Though he states he slept yesterday for 2.5 hours straight. Nursing states that he is ambulating better, and is able to go to the bathroom. they state though that he has been more drowsy with the benadryl and dilaudid. Though, patient denies this. Constitutional: no fever, no chills and no sweats Eyes: no diplopia Ear, Nose, Mouth, Throat: no nasal discharge Respiratory: no cough and no dyspnea Cardiovascular: no chest pain Gastrointestinal: + diarrhea/loose stools Genitourinary (Male): no dysuria Musculoskeletal: + joint pain Integumentary: no rash and no lesions Neurologic: + gait abnormality Psychiatric: no hopelessness Endocrine: + polydipsia Hematologic / Lymphatic: no easy bleeding Physical Exam 2 Vital Signs (Past 24 Hours): Last Vital Signs Temp 36.8 C 10/13/18 07:19 Pulse 69 10/13/18 07:19 Resp 16 10/13/18 07:19 BP 129/80 10/13/18 07:19 Pulse Ox 99 10/13/18 07:19 Physical Exam: General: appears older than stated age, patient resting comfortably, oriented x 4, nontoxic in appearance Skin: warm, dry, intact, no rashes or lesions HEENT: NC/AT, PERRL, EOMI, anicteric sclera, conjunctiva without injection, moist mucus membranes, poor dentition, no oropharyngeal lesions, neck supple, trachea midline, no LAD, no thyromegaly, no JVD Heart: +S1/S2, regular, no m/r/g Lungs: equal air entry bilaterally, no rales/rhonchi/wheezes Abd: +BS, soft, NT/ND, no masses/organomegaly/ascites Ext: warm, 2+ pulses in UE/LE bilaterally, no clubbing/cyanosis, +edema bilaterally, immobilizer on left knee, unable to find any collection of fluid or mass on today's exam, no erythema, or tenderness to palpation. Neuro: nonfocal, patient AA&O x 4, speech intact, no facial droop, moving all extremities on command with equal strength 5/5 _ (1) Infection associated with internal left knee prosthesis Encounter type: sequela Qualified Code(s): T84.54XS - Infection and inflammatory reaction due to internal left knee prosthesis, sequela (2) Hypertension Hypertension type: essential hypertension Qualified Code(s): I10 - Essential (primary) hypertension (3) Pneumonia Aspiration pneumonia type: Laterality: right Lung location: unspecified part of lung Pneumonia type: due to unspecified organism Qualified Code(s): J18.9 - Pneumonia, unspecified organism (4) Anemia Anemia type: unspecified type Iron deficiency anemia type: Vitamin B12 deficiency anemia type: Folate deficiency anemia type: Bone marrow failure anemia type: Hemolytic anemia type: Other causes of anemia: Chronic kidney disease stage: Qualified Code(s): D64.9 - Anemia, unspecified (5) Cirrhosis, alcoholic Ascites presence: with ascites Qualified Code(s): K70.31 - Alcoholic cirrhosis of liver with ascites
[2018-10-13 11:32] LABS: BUN Creatinine Ratio 21.6 (10-20); Calcium 8.6 mg/dl (8.5-10.1); Creatinine Clr Calc Pharmacy 78.8 ml/min; Est GFR (African American) 67.5; Est GFR (Non-African American) 58.3; Potassium 4.9 mmol/L (3.5-5.1)
[2018-10-13 11:40] LABS: Anisocytosis Present
[2018-10-13] MEDS: HYDROmorphone INJ 1 MG/ML SYRINGE IV PRN ×2 (12:08→18:07)
--- NOTE | 2018-10-13 18:41 | History & Physical Bridge Note ---
Date of Service October 13, 2018 History & Physical Bridge Note I have examined the patient, reviewed the History & Physical and in the interval since the performance of the History & Physical I have noted the following changes of clinical significance: no changes noted
[2018-10-13] MEDS ORDERED: PROPOFOL IV EMULSION 10 MG/ML 20 ML VIAL IV ONE (19:03)
[2018-10-13] MEDS ORDERED: LIDOCAINE HCL 2% 2 ML VIAL/AMP(20MG/ML) INFIL ONE (19:04)
[2018-10-13] MEDS ORDERED: fentaNYL citrate 100 MCG/2 ML VIAL ONE (19:06)
[2018-10-13] MEDS ORDERED: BUPIVACAINE/EPINEPHRINE 0.5% MPF 1:200,000 30 ML VIAL ONE (19:20)
[2018-10-13] MEDS ORDERED: CEFAZOLIN 250 MG/ML 1 GM VIAL ONE (19:57)
[2018-10-13] MEDS ORDERED: DEXAMETHASONE SOD INJ 4 MG/ML VIAL ONE (20:03)
[2018-10-13] MEDS ORDERED: ONDANSETRON INJ 2 MG/ML 2 ML VIAL ONE (20:04)
[2018-10-13] MEDS ORDERED: CEFAZOLIN 2000MG 2,000 MG/15 ML SYR IV SCH (20:30)
[2018-10-13] MEDS ORDERED: ATROPINE SULFATE 0.1 MG/ML 10ML SYR IV PRN ×2 (20:33→20:43)
[2018-10-13] MEDS ORDERED: LABETALOL HCL IV 5 MG/ML 20ML IV PRN (20:33)
[2018-10-13] MEDS ORDERED: fentaNYL citrate 100 MCG/2 ML VIAL IV PRN ×2 (20:33→20:43)
[2018-10-13] MEDS ORDERED: PHENYLEPHRINE 100MCG/ML 5ML SYR IV PRN (20:33)
[2018-10-13] MEDS ORDERED: MEPERIDINE HCL 25 MG/ML CARP IV PRN (20:33)
[2018-10-13] MEDS ORDERED: ePHEDrine sulfate 50 MG/ML AMP IV PRN ×2 (20:33→20:43)
[2018-10-13] MEDS ORDERED: HYDROmorphone INJ 1 MG/ML SYRINGE IV PRN ×2 (20:33→20:43)
[2018-10-13] MEDS ORDERED: ONDANSETRON INJ 2 MG/ML 2 ML VIAL IV PRN ×2 (20:33→20:43)
--- NOTE | 2018-10-13 20:35 | Operative Report ---
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 With his help I clearly marked the spot. After this we went back to the operating room. The patient was placed in supine position and a laryngeal mask airway placed. The right upper thigh area was sterilely prepped and draped in usual fashion. I made a vertical incision directly over the area of the patient's discomfort. We carried this down through the soft tissue using cautery. In the soft tissue there was a fairly firm lipomatous type of tissue. I palpated superiorly for several inches medially for several inches laterally for several inches and inferiorly for several inches the whole way down to the fascial layer of the muscle. I was unable to find any masses other than the lipomatous tissue. I did excise this as this is exactly what the patient had marked for me as discomfort. It was sent to pathology. There was minimal bleeding. There was considerable edema within the tissues. I irrigated the wound and then closed it with 2-0 Vicryl for deep layers 3-0 Vicryl for mid layers and 4-0 Monocryl for skin. Marcaine with epinephrine was injected around it for postoperative analgesia. Benzoin and Steri-Strips were used as a dressing. The patient was awaken extubated and transferred recovery in stable condition. I attest to the content of the Intraoperative Record and any orders documented therein. Any exceptions are noted below.
[2018-10-13] MEDS ORDERED: HYDROmorphone INJ 1 MG/ML SYRINGE ONE (20:56)
--- NOTE | 2018-10-13 21:14 | Anesthesiology Progress Note ---
Date of Service October 13, 2018 Anesthesia Post Procedure Vital Signs Vital Signs: Temp Pulse Pulse Resp BP Pulse Ox 10/13/18 21:10 70 16 164/95 H 100 10/13/18 21:00 77 16 148/98 H 100 10/13/18 20:50 74 16 155/99 H 100 10/13/18 20:41 36.8 C 80 16 148/94 H 100 10/13/18 15:10 36.6 C 67 18 134/81 100 10/13/18 07:19 36.8 C 69 16 129/80 99 10/12/18 22:57 36.8 C 66 16 132/78 97 Pain Intensity Right Groin: Pain Intensity: 4 Bilateral Leg: Pain Intensity: 4 Left Knee: Pain Intensity: 4 Notes Mental Status: alert / awake / arousable and participated in evaluation Nausea / Vomiting: adequately controlled Pain: adequately controlled Airway Patency, RR, SpO2: stable & adequate BP & HR: stable & adequate Hydration State: stable & adequate Anesthetic Complications: no major complications apparent and Pt Satisfied with anesthetic care
[2018-10-14] MEDS: HYDROmorphone INJ 1 MG/ML SYRINGE IV PRN ×5 (00:10→21:18)
[2018-10-14] MEDS: OXYCODONE HCL IR 5 MG TAB (IMMEDIATE RELEASE) PO PRN ×5 (03:34→22:48)
[2018-10-14] MEDS: LORazepam 1 MG TAB PO PRN (03:35)
[2018-10-14] MEDS: LACTOBACILLUS ACIDOPHILUS (FLORANEX) TAB PO SCH ×4 (08:06→20:38)
[2018-10-14] MEDS: cefTRIAXone SODIUM 2,000 MG in DEXTROSE 5% 50 ML IV SCH (08:06)
[2018-10-14] MEDS: AMLODIPINE BESYLATE 5 MG TAB PO SCH (08:08)
[2018-10-14] MEDS: METOPROLOL TARTRATE 25 MG TAB PO SCH ×2 (08:08→20:38)
[2018-10-14] MEDS: predniSONE 20 MG TAB PO SCH (08:09)
[2018-10-14] MEDS: PANTOprazole 40 MG TAB PO SCH (08:09)
[2018-10-14] MEDS: DiphenhydrAMINE HCL 50 MG/ML VIAL IV PRN ×4 (09:10→22:41)
[2018-10-14] MEDS: OXYCODONE HCL 15 MG TABCR (OXYCONTIN) PO SCH ×2 (09:10→20:38)
--- NOTE | 2018-10-14 09:11 | Surgery Progress Note ---
Date of Service October 14, 2018 Assessment & Plan (1) Mass of right thigh: POD #1- s/p Excision soft tissue mass from right thigh Patient seen and examined with Dr. Carrion From surgical standpoint patient is doing well- reviewed findings of surgical procedure with patient. Pathology report pending. Plan is for patient to return to [place] for upcoming knee surgery Patient to follow-up in Gen Surg clinic in 1-2 wks. Gen Surg will sign off at this time, please call with questions or concerns Subjective Patient doing well from surgical standpoint this AM. Biggest complaint continues to be left knee pain. Physical Exam 2 Vital Signs (Past 24 Hours): Last Vital Signs Temp 36.6 C 10/14/18 07:51 Pulse 79 10/14/18 07:51 Resp 20 10/14/18 07:51 BP 137/78 10/14/18 07:51 Pulse Ox 100 10/14/18 07:51 Skin: surgical incision with dressing- clean, dry, intact.
--- NOTE | 2018-10-14 09:14 | Surgery Progress Note ---
Date of Service October 14, 2018 Assessment & Plan (1) Mass of right thigh: pod 1 no surgical issues can f/u with me in 1-2 weeks in office. Subjective pt with multiple complaints not related to his surgical site Physical Exam 2 Vital Signs (Past 24 Hours): Last Vital Signs Temp 36.6 C 10/14/18 07:51 Pulse 79 10/14/18 07:51 Resp 20 10/14/18 07:51 BP 137/78 10/14/18 07:51 Pulse Ox 100 10/14/18 07:51 Physical Exam: wound looks good. no drainage.
[2018-10-14] MEDS: ENOXAPARIN INJ 40 MG/0.4 ML SYR SQ SCH (10:09)
[2018-10-14] MEDS ORDERED: ONDANSETRON INJ 2 MG/ML 2 ML VIAL ONE (17:12)
--- NOTE | 2018-10-14 22:34 | Hospitalist Progress Note ---
Date of Service October 14, 2018 Assessment & Plan (1) Right inguinal pain: U/S of groin completed: there is a complex, largely solid partially cystic 5.4 x 2.2 x 3.2 cm collection at the site of clinical interest in the medial right thigh. This is avascular on color Doppler. This is very well-defined with a well-defined wall. Surrounding fat infiltration suggested. s/p excision on 10/[address] Carrion, appears to be a lipoma still with pain today but a lot less c/o hard nodule in inguinal region, discussed that the two lesions not related (2) Infection associated with internal left knee prosthesis: Patient with prolonged hospital stay last month with complaint of left knee pain. Prolonged hospital stay at [facility] prior to that secondary to infection of left knee prosthesis. Presently states his left knee feels ok. Patient was seen by ID during his prior hospital stay. He is to complete 6 weeks of antibiotics (started on 08/31/18. End date should be .) Patient with antibiotic spacer in place presently - will need future surgery, explant and replacement of prosthetic. He has a followup appointment with [facility] scheduled for 10/15/18. Ultimately will most likely require surgery performed at a tertiary care center. Patient is to followup with Dr. Serrano on 10/14/18. As noted above, will continue ceftriaxone 2 g IV daily * ID consultation as above - appreciate assistance * Pain control with Oxycontin 30mg po BID and Oxycodone 10mg po q 4 hours PRN * patient will need new follow up with [facility], work on new appointment tomorrow certainly his mobility is improved, transferring out of bed, ambulating with rolling walker doing this without any assistance, patient very pleased with his progress (3) Hypertension: Blood pressure at goal * Continue Metoprolol 12.5mg po BID * Continue Amlodipine 10mg po daily * Continue to monitor. (4) Borderline diabetes: Continue to monitor with fingersticks (5) Pneumonia: Patient found to have RLL cavitary lesions during last hospital stay c/w necrotizing PNA. Blood cultures from [place] 08/24 positive for strep pneumoniae , repeat cultures 08/31 and 09/[address] guided lung biopsy 09/27 that was negative. Transbronchial biopsy performed 09/[address] Sinclair which was negative for malignancy. Patient presently with no respiratory distress, no complaints of SOB/cough/wheeze. Lungs CTA. * Continue Ceftriaxone as above * Continue Steroid taper as above (6) BISHOP (acute kidney injury): Cr. 1.38 slightly above discharge value of 1.35. Patient states he is passing urine without difficulty. * Avoid nephrotoxic agents * Renal dosing where appropriate * Creat. improved to 1.38 on 10/10 * Awaiting morning labs.hemoglob Cr has been stable (7) Anemia: Baseline HG of 10-11. Presently 7.5, normochromic/normocytic. No active bleeding. B12/folate normal on 09/15. Ferritin level elevated on 09/15 - acute phase reactant in setting of acute infection. Anemia thought to be secondary to malnutrition, cirrhosis, EtOH abuse. * Continue to monitor with daily CBC * Transfuse for active bleed, symptomatic anemia or Hg < 7 * * hemoglobin has been stable at 7.4 (10/13) repeat tomorrow, no signs of bleeding (8) Insomnia: Insomnia try to avoid benzos as he is on narcotics (9) Cirrhosis, alcoholic: Compensated at present. 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, but not at [facility] need to get new appointment for [facility] to discuss knee revision patient is much more motivated, getting stronger, has optimistic outlook Subjective patient feeling well, still has pain in right thigh but a lot less feels hard nodule in inguinal region today, no close to incision discussed that the lump was a lipoma reviewed recent labs, Cr stable, WBC stable, Hb low but stable patient doing much better with mobility, able to ambulate with rolling walker to the restroom he was excited to show me his progress discussed that he would miss his appointment at [facility] tomorrow we will try to help him get another appointment Review of Systems All systems reviewed & are unremarkable except as noted in HPI & below Musculoskeletal: + back pain, + joint pain (right hip, left knee) and + swelling Physical Exam 2 Vital Signs (Past 24 Hours): Last Vital Signs Temp 36.3 C L 10/14/18 15:29 Pulse 74 10/14/18 20:35 Resp 18 10/14/18 15:29 BP 148/76 H 10/14/18 20:35 Pulse Ox 99 10/14/18 15:29 Constitutional: WD/WN, vitals as above Eyes: PERRL, conjunctivae normal, anicteric sclerae ENMT: external ear and nose normal, oropharynx normal Neck: trachea midline, no thyromegaly Respiratory: normal respiratory effort, lungs clear to auscultation Cardiovascular: RRR, no murmur, no edema Gastrointestinal (Abdomen): normal bowel sounds, soft, nontender, no hepatosplenomegaly Musculoskeletal: Head/Neck/Chest: normocephalic and head atraumatic Extremities: + joint enlargement (left knee) Skin: very dry, flaking in areas Neurologic: patellar DTR's 2+ bilat, sensation intact and PERRL, EOMI, accommodation nl, no face palsy, no dysarthria Psychiatric: A+Ox3, euthymic affect Lymphatic: no cervical or axillary lymphadenopathy Results & Data Laboratory Results Laboratory Results - last 24 hr 10/14/18 10/14/18 10/14/18 08:01 12:15 16:59 POC Glucose 105 H 163 H 145 H 10/14/18 19:52 POC Glucose 225 H Medications Administered Current Inpatient Medications Acetaminophen (Tylenol) 650 mg PO Q4H PRN PRN Reason: fever or pain Stop: 11/07/18 21:16 Amlodipine Besylate (Norvasc) [address] [facility] Stop: 11/08/18 08:59 Last Admin: 10/14/18 08:08 Dose: 10 mg Diphenhydramine HCl (Benadryl) 25 mg IV Q4H PRN PRN Reason: Itching Stop: 11/13/18 08:57 Last Admin: 10/14/18 18:47 Dose: 25 mg Enoxaparin Sodium (Lovenox) [facility] Stop: 11/08/18 08:59 Last Admin: 10/14/18 10:09 Dose: 40 mg Heparin Sodium (Beef Lung) (Heparin Sod 10 Unit/Ml Flush) 5 ml FLUSH PRN PRN PRN Reason: Prophylaxis Stop: 11/12/18 18:21 Last Admin: 10/14/18 21:18 Dose: 5 ml Hydromorphone HCl (Dilaudid) 1 mg IV Q4H PRN PRN Reason: Severe Pain 7,8 Stop: 10/27/18 11:09 Last Admin: 10/14/18 21:18 Dose: 1 mg Ceftriaxone Sodium 2,000 mg/ (Dextrose) 50 mls @ 100 mls/hr IV Q24H [facility] Stop: 11/08/18 07:59 Last Infusion: 10/14/18 08:40 Dose: Infused Lactobacillus Acidophilus (Floranex) 4 tab PO QIDM [facility] Stop: 11/08/18 11:59 Last Admin: 10/14/18 20:38 Dose: 4 tab Lorazepam (Ativan) 1 mg PO HS PRN PRN Reason: insomnia Stop: 11/07/18 21:16 Last Admin: 10/14/18 03:35 Dose: 1 mg Metoprolol Tartrate (Lopressor) 12.5 mg PO BID [facility] Stop: 11/07/18 21:16 Last Admin: 10/14/18 20:38 Dose: 12.5 mg Ondansetron HCl (Zofran) 4 mg IV Q4H PRN PRN Reason: Nausea Stop: 11/13/18 16:56 Oxycodone HCl (Oxycontin) 30 mg PO Q12H [facility] Stop: 10/22/18 21:16 Last Admin: 10/14/18 20:38 Dose: 30 mg Oxycodone HCl (Roxicodone Immediate Rel) 10 mg PO Q4H PRN PRN Reason: pain Stop: 10/22/18 21:16 Last Admin: 10/14/18 18:47 Dose: 10 mg Pantoprazole Sodium (Protonix) 40 mg PO DAILY [facility] Stop: 11/08/18 08:59 Last Admin: 10/14/18 08:09 Dose: 40 mg Prednisone (Prednisone) 40 mg PO DAILY [facility]; Taper Stop: 10/31/18 08:59 Last Admin: 10/14/18 08:09 Dose: 40 mg _ (1) Infection associated with internal left knee prosthesis Encounter type: sequela Qualified Code(s): T84.54XS - Infection and inflammatory reaction due to internal left knee prosthesis, sequela (2) Hypertension Hypertension type: essential hypertension Qualified Code(s): I10 - Essential (primary) hypertension (3) Pneumonia Aspiration pneumonia type: Laterality: right Lung location: unspecified part of lung Pneumonia type: due to unspecified organism Qualified Code(s): J18.9 - Pneumonia, unspecified organism (4) Anemia Anemia type: unspecified type Iron deficiency anemia type: Vitamin B12 deficiency anemia type: Folate deficiency anemia type: Bone marrow failure anemia type: Hemolytic anemia type: Other causes of anemia: Chronic kidney disease stage: Qualified Code(s): D64.9 - Anemia, unspecified (5) Cirrhosis, alcoholic Ascites presence: with ascites Qualified Code(s): K70.31 - Alcoholic cirrhosis of liver with ascites
[2018-10-15] MEDS: HYDROmorphone INJ 1 MG/ML SYRINGE IV PRN ×5 (01:23→20:46)
[2018-10-15] MEDS: DiphenhydrAMINE HCL 50 MG/ML VIAL IV PRN ×5 (02:41→20:45)
[2018-10-15] MEDS: OXYCODONE HCL IR 5 MG TAB (IMMEDIATE RELEASE) PO PRN ×5 (02:41→23:47)
[2018-10-15] MEDS: cefTRIAXone SODIUM 2,000 MG in DEXTROSE 5% 50 ML IV SCH (07:45)
--- NOTE | 2018-10-15 08:07 | Surgery Progress Note ---
Date of Service October 15, 2018 Assessment & Plan (1) Mass of right thigh: POD 2 excision mass (lipoma), path pending he noticed some swelling in inguinal area, has some fluid in inguinal canal on CT, nothing further needs done f/u in clinic Subjective sore from incision Physical Exam 2 Vital Signs (Past 24 Hours): Last Vital Signs Temp 36.9 C 10/15/18 07:32 Pulse 73 10/15/18 07:32 Resp 16 10/15/18 07:32 BP 156/91 H 10/15/18 07:32 Pulse Ox 99 10/15/18 07:32 Gastrointestinal (Abdomen): Inspection/Auscultation: + abdominal surgical incision (clean, dry)
[2018-10-15 08:25] LABS: Basophils # (auto) 0.03 K/uL (0-0.2); Basophils % (auto) 0.4 %; Eosinophils # (auto) 0.44 K/uL (0-0.5); Eosinophils % (auto) 5.2 %; Hematocrit (blood only) 23.9 % (42-52); Hemoglobin 7.7 g/dL (14.0-18.0); Immature Granulocytes # (auto) 0.02 K/uL (0.00-0.02); Immature Granulocytes % (auto) 0.2 %; Lymphocytes # (auto) 2.37 K/uL (1.2-3.4); Lymphocytes % (auto) 27.8 %; Mean Corpuscular Hgb Conc 32.2 g/dL (32-36); Mean Platelet Volume 8.1 fL (7.4-10.4); Monocytes # (auto) 0.53 K/uL (0.11-0.59); Monocytes % (auto) 6.2 %; Neutrophils # (auto) 5.14 K/uL (1.4-6.5); Neutrophils % (auto) 60.2 %; Platelet Count 253 K/uL (130-400); RDW Coefficient of Variation 17.9 % (11.5-14.5); RDW Standard Deviation 63.1 fL (36.4-46.3); Red Blood Count 2.49 M/uL (4.7-6.1); White Blood Count 8.53 K/uL (4.8-10.8)
[2018-10-15 08:46] LABS: RBC Morphology Unremarkable
[2018-10-15 08:56] LABS: Albumin Level 2.2 gm/dl (3.4-5.0); BUN Creatinine Ratio 19.5 (10-20); Calcium 8.2 mg/dl (8.5-10.1); Creatinine Clr Calc Pharmacy 74.9 ml/min; Est GFR (African American) 63.5; Est GFR (Non-African American) 54.8; Potassium 4.5 mmol/L (3.5-5.1)
[2018-10-15] MEDS: LACTOBACILLUS ACIDOPHILUS (FLORANEX) TAB PO SCH ×4 (08:58→20:48)
[2018-10-15] MEDS: predniSONE 20 MG TAB PO SCH (08:58)
[2018-10-15 08:59] LABS: Albumin Globulin Ratio 0.4 (0.9-2); Bilirubin,Total 0.1 mg/dl (0.2-1); Globulin 5.1 gm/dl (2.5-4.0); Total Protein 7.3 gm/dl (6.4-8.2)
[2018-10-15] MEDS: PANTOprazole 40 MG TAB PO SCH (08:59)
[2018-10-15] MEDS: AMLODIPINE BESYLATE 5 MG TAB PO SCH (08:59)
[2018-10-15] MEDS: METOPROLOL TARTRATE 25 MG TAB PO SCH ×2 (08:59→20:47)
[2018-10-15] MEDS: ENOXAPARIN INJ 40 MG/0.4 ML SYR SQ SCH (09:00)
[2018-10-15] MEDS: OXYCODONE HCL 15 MG TABCR (OXYCONTIN) PO SCH ×2 (09:00→20:48)
--- NOTE | 2018-10-15 15:29 | Hospitalist Progress Note ---
Date of Service October 15, 2018 Assessment & Plan (1) Right inguinal pain: U/S of groin completed: there is a complex, largely solid partially cystic 5.4 x 2.2 x 3.2 cm collection at the site of clinical interest in the medial right thigh. This is avascular on color Doppler. This is very well-defined with a well-defined wall. Surrounding fat infiltration suggested. s/p excision on 10/[address] Carrion, appears to be a lipoma, pathology pending still with pain today but a lot less c/o hard nodule in inguinal region, discussed that the two lesions not related Dr. Carrion examined today, no further intervention needed (2) Infection associated with internal left knee prosthesis: Patient with prolonged hospital stay last month with complaint of left knee pain. Prolonged hospital stay at [facility] prior to that secondary to infection of left knee prosthesis. Presently states his left knee feels ok. Patient was seen by ID during his prior hospital stay. He is to complete 6 weeks of antibiotics (started on 08/31/18. End date should be .) Patient with antibiotic spacer in place presently - will need future surgery, explant and replacement of prosthetic. He has a followup appointment with [facility] scheduled for 10/15/18. Ultimately will most likely require surgery performed at a tertiary care center. Patient is to followup with Dr. Serrano on 10/14/18. As noted above, will continue ceftriaxone 2 g IV daily * ID consultation as above - appreciate assistance * Pain control with Oxycontin 30mg po BID and Oxycodone 10mg po q 4 hours PRN * patient will need new follow up with [facility], work on new appointment tomorrow certainly his mobility is improved, transferring out of bed, ambulating with rolling walker walking in the hallway today, very motivated to get stronger working on placement at [facility] for therapy and IV Rocephin (3) Hypertension: Blood pressure at goal * Continue Metoprolol 12.5mg po BID * Continue Amlodipine 10mg po daily * Continue to monitor. (4) Borderline diabetes: Continue to monitor with fingersticks (5) Pneumonia: Patient found to have RLL cavitary lesions during last hospital stay c/w necrotizing PNA. Blood cultures from [place] 08/24 positive for strep pneumoniae , repeat cultures 08/31 and 09/[address] guided lung biopsy 09/27 that was negative. Transbronchial biopsy performed 09/[address] Sinclair which was negative for malignancy. Patient presently with no respiratory distress, no complaints of SOB/cough/wheeze. Lungs CTA. * Continue Ceftriaxone as above * Continue Steroid taper as above (6) BISHOP (acute kidney injury): Cr has been stable, 1.4 today, making adequate urine, no current BISHOP (7) Anemia: Baseline HG of 10-11. Presently 7.5, normochromic/normocytic. No active bleeding. B12/folate normal on 09/15. Ferritin level elevated on 09/15 - acute phase reactant in setting of acute infection. Anemia thought to be secondary to malnutrition, cirrhosis, EtOH abuse. Hb 7.7 today, continue nutritional support, certainly helps that he is no longer drinking (8) Insomnia: Insomnia Ativan not working, will try Ambien this evening, Ativan discontinued (9) Cirrhosis, alcoholic: Compensated at present. 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, but not at [facility] considering [facility] on 10/17 options limited if [facility] not interested Subjective patient doing quite well today, ambulating in the hallway with rolling walker no fever says his pain in knee is worse with activity, better with rest says he is not sleeping well, will not stay asleep, rests for about 2 hours using Ativan at bedtime but does not work right away discussed trying Ambien, he is open to it reviewed labs, Hb is 7.7, Cr is 1.4 Albumin up to 2.2 discussed with case management, many SNF will not take, [facility] may take on discussed options with patient, he does not have home IV antibiotic coverage was concerned about him coming home due to narcotic use and history of alcohol abuse Review of Systems All systems reviewed & are unremarkable except as noted in HPI & below Constitutional: + insomnia Musculoskeletal: + joint pain (left knee) Physical Exam 2 Vital Signs (Past 24 Hours): Last Vital Signs Temp 36.7 C 10/15/18 15:24 Pulse 70 10/15/18 15:24 Resp 20 10/15/18 15:24 BP 133/73 10/15/18 15:24 Pulse Ox 100 10/15/18 15:24 Constitutional: WD/WN, vitals as above Eyes: PERRL, conjunctivae normal, anicteric sclerae ENMT: external ear and nose normal, oropharynx normal Neck: trachea midline, no thyromegaly Respiratory: normal respiratory effort, lungs clear to auscultation Cardiovascular: RRR, no murmur, no edema Gastrointestinal (Abdomen): normal bowel sounds, soft, nontender, no hepatosplenomegaly Musculoskeletal: Head/Neck/Chest: normocephalic and head atraumatic Extremities: + joint enlargement (left knee) Neurologic: patellar DTR's 2+ bilat, sensation intact and PERRL, EOMI, accommodation nl, no face palsy, no dysarthria Psychiatric: A+Ox3, euthymic affect Lymphatic: no cervical or axillary lymphadenopathy Results & Data Laboratory Results Laboratory Results - last 24 hr 10/14/18 10/14/18 10/15/18 16:59 19:52 08:03 WBC 8.53 RBC 2.49 L Hgb 7.7 L Hct 23.9 L MCV 96.0 MCH 30.9 MCHC 32.2 RDW Std Deviation 63.1 H RDW Coeff of Leatha 17.9 H Plt Count 253 MPV 8.1 Immature Gran % (Auto) 0.2 Neut % (Auto) 60.2 Lymph % (Auto) 27.8 Gray % (Auto) 6.2 Eos % (Auto) 5.2 Baso % (Auto) 0.4 Immature Gran # (Auto) 0.02 Neut # (Auto) 5.14 Lymph # (Auto) 2.37 Gray # (Auto) 0.53 Eos # (Auto) 0.44 Baso # (Auto) 0.03 RBC Morphology Unremarkable Sodium Potassium Chloride Carbon Dioxide Anion Gap BUN Creatinine Est Cr Clr Drug Dosing Est GFR ( Amer) Est GFR (Non-Af Amer) BUN/Creatinine Ratio Glucose POC Glucose 145 H 225 H Calcium Total Bilirubin AST ALT Alkaline Phosphatase Total Protein Albumin Globulin Albumin/Globulin Ratio 10/15/18 10/15/18 10/15/18 08:03 08:24 12:01 WBC RBC Hgb Hct MCV MCH MCHC RDW Std Deviation RDW Coeff of Leatha Plt Count MPV Immature Gran % (Auto) Neut % (Auto) Lymph % (Auto) Gray % (Auto) Eos % (Auto) Baso % (Auto) Immature Gran # (Auto) Neut # (Auto) Lymph # (Auto) Gray # (Auto) Eos # (Auto) Baso # (Auto) RBC Morphology Sodium 141 Potassium 4.5 Chloride 109 H Carbon Dioxide 25 Anion Gap 7.0 BUN 28 H Creatinine 1.42 H Est Cr Clr Drug Dosing 74.9 Est GFR ( Amer) 63.5 Est GFR (Non-Af Amer) 54.8 BUN/Creatinine Ratio 19.5 Glucose 92 POC Glucose 134 H 219 H Calcium 8.2 L Total Bilirubin 0.1 L AST 27 ALT 47 Alkaline Phosphatase 88 Total Protein 7.3 Albumin 2.2 L Globulin 5.1 H Albumin/Globulin Ratio 0.4 L Medications Administered Current Inpatient Medications Acetaminophen (Tylenol) 650 mg PO Q4H PRN PRN Reason: fever or pain Stop: 11/07/18 21:16 Amlodipine Besylate ([facility]asc) [facility] Stop: 11/08/18 08:59 Last Admin: 10/15/18 08:59 Dose: 10 mg Diphenhydramine HCl (Benadryl) 25 mg IV Q4H PRN PRN Reason: Itching Stop: 11/13/18 08:57 Last Admin: 10/15/18 11:50 Dose: 25 mg Enoxaparin Sodium (Lovenox) 40 mg SQ [facility] Stop: 11/08/18 08:59 Last Admin: 10/15/18 09:00 Dose: 40 mg Heparin Sodium (Beef Lung) (Heparin Sod 10 Unit/Ml Flush) 5 ml FLUSH PRN PRN PRN Reason: Prophylaxis Stop: 11/12/18 18:21 Last Admin: 10/15/18 11:58 Dose: 5 ml Hydromorphone HCl (Dilaudid) 1 mg IV Q4H PRN PRN Reason: Severe Pain 7,8 Stop: 10/27/18 11:09 Last Admin: 10/15/18 11:51 Dose: 1 mg Ceftriaxone Sodium 2,000 mg/ (Dextrose) 50 mls @ 100 mls/hr IV Q24H [facility] Stop: 11/08/18 07:59 Last Infusion: 10/15/18 08:42 Dose: Infused Lactobacillus Acidophilus (Floranex) 4 tab PO QIDM [facility] Stop: 11/08/18 11:59 Last Admin: 10/15/18 11:54 Dose: 4 tab Lorazepam (Ativan) 1 mg PO HS PRN PRN Reason: insomnia Stop: 11/07/18 21:16 Last Admin: 10/14/18 03:35 Dose: 1 mg Metoprolol Tartrate (Lopressor) 12.5 mg PO BID [facility] Stop: 11/07/18 21:16 Last Admin: 10/15/18 08:59 Dose: 12.5 mg Ondansetron HCl (Zofran) 4 mg IV Q4H PRN PRN Reason: Nausea Stop: 11/13/18 16:56 Oxycodone HCl (Oxycontin) 30 mg PO Q12H [facility] Stop: 10/22/18 21:16 Last Admin: 10/15/18 09:00 Dose: 30 mg Oxycodone HCl (Roxicodone Immediate Rel) 10 mg PO Q4H PRN PRN Reason: pain Stop: 10/22/18 21:16 Last Admin: 10/15/18 13:40 Dose: 10 mg Pantoprazole Sodium (Protonix) 40 mg PO DAILY [facility] Stop: 11/08/18 08:59 Last Admin: 10/15/18 08:59 Dose: 40 mg Prednisone (Prednisone) 40 mg PO DAILY [facility]; Taper Stop: 10/31/18 08:59 Last Admin: 10/15/18 08:58 Dose: 40 mg _ (1) Anemia Anemia type: unspecified type Bone marrow failure anemia type: Chronic kidney disease stage: Folate deficiency anemia type: Hemolytic anemia type: Iron deficiency anemia type: Other causes of anemia: Vitamin B12 deficiency anemia type: Qualified Code(s): D64.9 - Anemia, unspecified (2) Cirrhosis, alcoholic Ascites presence: with ascites Qualified Code(s): K70.31 - Alcoholic cirrhosis of liver with ascites (3) Infection associated with internal left knee prosthesis Encounter type: sequela Qualified Code(s): T84.54XS - Infection and inflammatory reaction due to internal left knee prosthesis, sequela (4) Hypertension Hypertension type: essential hypertension Qualified Code(s): I10 - Essential (primary) hypertension (5) Pneumonia Aspiration pneumonia type: Laterality: right Lung location: unspecified part of lung Pneumonia type: due to unspecified organism Qualified Code(s): J18.9 - Pneumonia, unspecified organism
[2018-10-15] MEDS: ONDANSETRON INJ 2 MG/ML 2 ML VIAL IV PRN (15:56)
[2018-10-15] MEDS ORDERED: ONDANSETRON INJ 2 MG/ML 2 ML VIAL IV ONE (18:52)
[2018-10-15] MEDS: ZOLPIDEM TARTRATE 5 MG TAB PO SCH (20:48)
[2018-10-16] MEDS: ONDANSETRON INJ 2 MG/ML 2 ML VIAL IV PRN ×5 (00:19→19:41)
[2018-10-16] MEDS: HYDROmorphone INJ 1 MG/ML SYRINGE IV PRN ×6 (00:48→22:30)
[2018-10-16] MEDS: DiphenhydrAMINE HCL 50 MG/ML VIAL IV PRN ×6 (00:49→22:31)
[2018-10-16] MEDS: OXYCODONE HCL IR 5 MG TAB (IMMEDIATE RELEASE) PO PRN ×5 (03:48→20:16)
[2018-10-16] MEDS: cefTRIAXone SODIUM 2,000 MG in DEXTROSE 5% 50 ML IV SCH (07:54)
[2018-10-16] MEDS: LACTOBACILLUS ACIDOPHILUS (FLORANEX) TAB PO SCH ×4 (09:21→21:21)
[2018-10-16] MEDS: METOPROLOL TARTRATE 25 MG TAB PO SCH ×2 (09:22→21:22)
[2018-10-16] MEDS: AMLODIPINE BESYLATE 5 MG TAB PO SCH (09:22)
[2018-10-16] MEDS: PANTOprazole 40 MG TAB PO SCH (09:22)
[2018-10-16] MEDS: predniSONE 20 MG TAB PO SCH (09:22)
[2018-10-16] MEDS: ENOXAPARIN INJ 40 MG/0.4 ML SYR SQ SCH (09:22)
[2018-10-16] MEDS: OXYCODONE HCL 15 MG TABCR (OXYCONTIN) PO SCH ×2 (09:28→21:21)
--- NOTE | 2018-10-16 15:46 | Hospitalist Progress Note ---
Date of Service October 16, 2018 Assessment & Plan (1) Right inguinal pain: U/S of groin completed: there is a complex, largely solid partially cystic 5.4 x 2.2 x 3.2 cm collection at the site of clinical interest in the medial right thigh. This is avascular on color Doppler. This is very well-defined with a well-defined wall. Surrounding fat infiltration suggested. s/p excision on 10/[address] Carrion, appears to be a lipoma still with pain today but a lot less c/o hard nodule in inguinal region, discussed that the two lesions not related Dr. Carrion examined 10/15/18, no further intervention needed (2) Infection associated with internal left knee prosthesis: Patient with prolonged hospital stay last month with complaint of left knee pain. Prolonged hospital stay at [facility] prior to that secondary to infection of left knee prosthesis. Presently states his left knee feels ok. Patient was seen by ID during his prior hospital stay. He is to complete 6 weeks of antibiotics (started on 08/31/18. End date should be .) Patient with antibiotic spacer in place presently - will need future surgery, explant and replacement of prosthetic. He has a followup appointment with [facility] scheduled for 10/15/18. Ultimately will most likely require surgery performed at a tertiary care center. Patient is to followup with Dr. Serrano on 10/14/18. As noted above, will continue ceftriaxone 2 g IV daily * ID consultation as above - appreciate assistance * Pain control with Oxycontin 30mg po BID and Oxycodone 10mg po q 4 hours PRN * patient will need new follow up with [facility], new appointment arranged for 10/22/18 certainly his mobility is improved, transferring out of bed, ambulating with rolling walker walking in the hallway today, very motivated to get stronger d/w Dr. Serrano today, can stop IV Rocephin, ortho will want patient off of antibiotics prior to aspirating joint to look for bacteria since he will not require IV antibiotics, the patient can go home tomorrow (3) Hypertension: Blood pressure at goal * Continue Metoprolol 12.5mg po BID * Continue Amlodipine 10mg po daily * Continue to monitor. (4) Borderline diabetes: Continue to monitor with fingersticks (5) Pneumonia: Patient found to have RLL cavitary lesions during last hospital stay c/w necrotizing PNA. Blood cultures from [place] 08/24 positive for strep pneumoniae , repeat cultures 08/31 and 09/[address] guided lung biopsy 09/27 that was negative. Transbronchial biopsy performed 09/[address] Sinclair which was negative for malignancy. Patient presently with no respiratory distress, no complaints of SOB/cough/wheeze. Lungs CTA. * Continue Ceftriaxone as above * Continue Steroid taper as above will not require antibiotics on discharge pneumonia is clinically resolved (6) BISHOP (acute kidney injury): Cr has been stable, 1.4 yesterday, making adequate urine, no current BISHOP (7) Anemia: Baseline HG of 10-11. Presently 7.5, normochromic/normocytic. No active bleeding. B12/folate normal on 09/15. Ferritin level elevated on 09/15 - acute phase reactant in setting of acute infection. Anemia thought to be secondary to malnutrition, cirrhosis, EtOH abuse. Hb 7.7 on 10/25/18, continue nutritional support, certainly helps that he is no longer drinking (8) Insomnia: some success with Ambien would not continue on discharge, would want him to try sleeping at home (9) Cirrhosis, alcoholic: Compensated at present. will eventually need referred to GI as outpatient but this can wait until after his left knee is dealt with plan: PT/OT evaluations, ambulating in the halls with walker patient can go home tomorrow, will provide script for outpatient PT will ask orthotics to evaluate the left knee brace plan to follow up with [facility] ortho on 10/22/18 will need follow up with Dr. Vásquez in 1-2 weeks, his PCP Subjective patient continues to do well, ambulated around entire nursing unit today with PT discussed case with Dr. Serrano, okay to stop IV antibiotics since he no longer needs antibiotics he can go home plan to d/c to home tomorrow discussed plan to follow up with [facility] orthopedics and PCP further discussion and planning tomorrow morning patient plans to leave at 10am, his will pick him up Review of Systems All systems reviewed & are unremarkable except as noted in HPI & below Constitutional: + insomnia (Ambien did help slightly) Respiratory: no cough and no dyspnea Gastrointestinal: + nausea and + vomiting; no constipation Musculoskeletal: + joint pain (left knee) Physical Exam 2 Vital Signs (Past 24 Hours): Last Vital Signs Temp 37.0 C 10/16/18 14:56 Pulse 72 10/16/18 14:56 Resp 20 10/16/18 14:56 BP 166/91 H 10/16/18 14:56 Pulse Ox 100 10/16/18 14:56 Constitutional: WD/WN, vitals as above Eyes: PERRL, conjunctivae normal, anicteric sclerae ENMT: external ear and nose normal, oropharynx normal Neck: trachea midline, no thyromegaly Respiratory: normal respiratory effort, lungs clear to auscultation Cardiovascular: RRR, no murmur, no edema Gastrointestinal (Abdomen): normal bowel sounds, soft, nontender, no hepatosplenomegaly Musculoskeletal: Head/Neck/Chest: normocephalic and head atraumatic Extremities: + joint enlargement (left knee) Neurologic: patellar DTR's 2+ bilat, sensation intact and PERRL, EOMI, accommodation nl, no face palsy, no dysarthria Psychiatric: A+Ox3, euthymic affect Lymphatic: no cervical or axillary lymphadenopathy Results & Data Medications Administered Current Inpatient Medications Acetaminophen (Tylenol) 650 mg PO Q4H PRN PRN Reason: fever or pain Stop: 11/07/18 21:16 Amlodipine Besylate (Norvasc) 10 mg PO [facility] Stop: 11/08/18 08:59 Last Admin: 10/16/18 09:22 Dose: 10 mg Diphenhydramine HCl (Benadryl) 25 mg IV Q4H PRN PRN Reason: Itching Stop: 11/13/18 08:57 Last Admin: 10/16/18 13:09 Dose: 25 mg Enoxaparin Sodium (Lovenox) 40 mg SQ [facility] Stop: 11/08/18 08:59 Last Admin: 10/16/18 09:22 Dose: 40 mg Heparin Sodium (Beef Lung) (Heparin Sod 10 Unit/Ml Flush) 5 ml FLUSH PRN PRN PRN Reason: Prophylaxis Stop: 11/12/18 18:21 Last Admin: 10/16/18 13:11 Dose: 5 ml Hydromorphone HCl (Dilaudid) 1 mg IV Q4H PRN PRN Reason: Severe Pain 7,8 Stop: 10/27/18 11:09 Last Admin: 10/16/18 13:09 Dose: 1 mg Ceftriaxone Sodium 2,000 mg/ (Dextrose) 50 mls @ 100 mls/hr IV Q24H [facility] Stop: 11/08/18 07:59 Last Infusion: 10/16/18 08:42 Dose: Infused Lactobacillus Acidophilus (Floranex) 4 tab PO QIDM [facility] Stop: 11/08/18 11:59 Last Admin: 10/16/18 12:04 Dose: 4 tab Metoprolol Tartrate (Lopressor) 12.5 mg PO BID [facility] Stop: 11/07/18 21:16 Last Admin: 10/16/18 09:22 Dose: 12.5 mg Ondansetron HCl (Zofran) 4 mg IV Q4H PRN PRN Reason: Nausea Stop: 11/13/18 16:56 Last Admin: 10/16/18 13:15 Dose: 4 mg Oxycodone HCl (Oxycontin) 30 mg PO Q12H [facility] Stop: 10/22/18 21:16 Last Admin: 10/16/18 09:28 Dose: 30 mg Oxycodone HCl (Roxicodone Immediate Rel) 10 mg PO Q4H PRN PRN Reason: pain Stop: 10/22/18 21:16 Last Admin: 10/16/18 12:04 Dose: 10 mg Pantoprazole Sodium (Protonix) 40 mg PO DAILY [facility] Stop: 11/08/18 08:59 Last Admin: 10/16/18 09:22 Dose: 40 mg Prednisone (Prednisone) 20 mg PO DAILY [facility]; Taper Stop: 10/31/18 08:59 Last Admin: 10/16/18 09:22 Dose: 20 mg Zolpidem Tartrate (Ambien) 5 mg PO HS [facility] Stop: 11/14/18 20:59 Last Admin: 10/15/18 20:48 Dose: 5 mg _ (1) Anemia Anemia type: unspecified type Bone marrow failure anemia type: Chronic kidney disease stage: Folate deficiency anemia type: Hemolytic anemia type: Iron deficiency anemia type: Other causes of anemia: Vitamin B12 deficiency anemia type: Qualified Code(s): D64.9 - Anemia, unspecified (2) Cirrhosis, alcoholic Ascites presence: with ascites Qualified Code(s): K70.31 - Alcoholic cirrhosis of liver with ascites (3) Infection associated with internal left knee prosthesis Encounter type: sequela Qualified Code(s): T84.54XS - Infection and inflammatory reaction due to internal left knee prosthesis, sequela (4) Hypertension Hypertension type: essential hypertension Qualified Code(s): I10 - Essential (primary) hypertension (5) Pneumonia Aspiration pneumonia type: Laterality: right Lung location: unspecified part of lung Pneumonia type: due to unspecified organism Qualified Code(s): J18.9 - Pneumonia, unspecified organism
[2018-10-16] MEDS: ZOLPIDEM TARTRATE 5 MG TAB PO SCH (21:19)
[2018-10-17] MEDS: DiphenhydrAMINE HCL 50 MG/ML VIAL IV PRN ×3 (02:34→10:38)
[2018-10-17] MEDS: HYDROmorphone INJ 1 MG/ML SYRINGE IV PRN ×3 (02:35→10:38)
[2018-10-17] MEDS: OXYCODONE HCL IR 5 MG TAB (IMMEDIATE RELEASE) PO PRN ×3 (04:36→13:12)
[2018-10-17] MEDS: ONDANSETRON INJ 2 MG/ML 2 ML VIAL IV PRN ×2 (04:44→10:00)
[2018-10-17] MEDS: PANTOprazole 40 MG TAB PO SCH (08:37)
[2018-10-17] MEDS: AMLODIPINE BESYLATE 5 MG TAB PO SCH (08:37)
[2018-10-17] MEDS: predniSONE 20 MG TAB PO SCH (08:37)
[2018-10-17] MEDS: LACTOBACILLUS ACIDOPHILUS (FLORANEX) TAB PO SCH ×2 (08:37→13:12)
[2018-10-17] MEDS: METOPROLOL TARTRATE 25 MG TAB PO SCH (08:38)
[2018-10-17] MEDS: ENOXAPARIN INJ 40 MG/0.4 ML SYR SQ SCH (08:38)
[2018-10-17] MEDS: OXYCODONE HCL 15 MG TABCR (OXYCONTIN) PO SCH (08:48)
[2018-10-17] MEDS: cefTRIAXone SODIUM 2,000 MG in DEXTROSE 5% 50 ML IV SCH (09:06)
--- NOTE | 2018-10-18 08:54 | Discharge Summary ---
Date of Service October 17, 2018 Admission HPI Per Admitting Provider Mr. Ramon is a 58yo male with a plethora of medical problems to include HTN, cirrhosis, CKD. Patient with recent prolonged and complicated hospital stay from 09/10 - 10/05/18 for septic arthritis of left knee prosthesis, found to have multifocal necotizing pneumonia, cirrhosis and bacteremia during that hospital stay. He had a PICC line placed and was discharged home on Ceftriaxone 2gm IV daily for a 6 week course. Reports he has been receiving all his medications as prescribed. He was discharged to [facility] on 10/05/18 in stable condition. Patient states that he has been having pain in his right groin radiating into the abdomen occurring intermittently over the last 3 days. Pain occurs multiple times per day, described as severe to the point of "doubling him over" and lasting appx 45 minutes. Pain is tearing in nature. Associated with swelling and firmness of the right inguinal region. It does not occur specifically with bearing down or lifting. He has never had this pain before. Otherwise, he denies fevers/chills/sweats/malaise. Denies CP/palpitations/SOB/cough/wheeze/ abdominal pain. He is passing gas and having normal BMs. No additional complaints at this time. CT of the abdomen obtained from ER which revealed fluid in the right inguinal canal. No hernia appreciated. He was evaluated by Dr. Gomez from surgery who expressed concern for seeding infection to the inguinal canal with possible infection of that space. No surgical intervention planned at this time. ER Course: Benadryl, Fentanyl, Dilaudid, Vancomycin and Zosyn Admission Exam Per Admitting Provider General: appears older than stated age, patient resting comfortably, somnolent but arousable, oriented x 4, nontoxic in appearance Skin: warm, dry, intact, no rashes or lesions HEENT: NC/AT, PERRL, EOMI, anicteric sclera, conjunctiva without injection, external ear normal to inspection and nontender, nares patent, moist mucus membranes, poor dentition, no oropharyngeal lesions, neck supple, trachea midline, no LAD, no thyromegaly, no JVD Heart: +S1/S2, regular, no m/r/g Lungs: equal air entry bilaterally, no rales/rhonchi/wheezes Abd: +BS, soft, NT/ND, no masses/organomegaly/ascites Ext: warm, 2+ pulses in UE/LE bilaterally, no clubbing/cyanosis, +edema bilaterally, immobilizer on left knee Neuro: nonfocal, patient AA&O x 4, speech intact, no facial droop, moving all extremities on command with equal strength 5/5 Principal Diagnosis Right groin pain due to large lipoma Discharge Exam Constitutional WD/WN, vitals as above Eyes PERRL, conjunctivae normal, anicteric sclerae ENMT external ear and nose normal, oropharynx normal Neck trachea midline, no thyromegaly Respiratory normal respiratory effort, lungs clear to auscultation Cardiovascular RRR, no murmur, no edema Gastrointestinal (Abdomen) normal bowel sounds, soft, nontender, no hepatosplenomegaly Musculoskeletal Head/Neck/Chest: normocephalic and head atraumatic Extremities: + joint enlargement (left knee) Neurologic patellar DTR's 2+ bilat, sensation intact and PERRL, EOMI, accommodation nl, no face palsy, no dysarthria Psychiatric A+Ox3, euthymic affect Lymphatic no cervical or axillary lymphadenopathy Discharge Data Allergies Allergy/AdvReac Type Severity Reaction Status Date / Time No Known Allergies Allergy Verified 09/10/18 06:28 Consultations 10/08/18 17:58 ED Decision to Admit Stat 10/08/18 21:17 Consult Case Management - Discharge Planning Routine Consult Infectious Diseases Routine 10/11/18 18:50 Consult General Surgery Routine Procedures Performed Operation Date: 10/13/18 07:30 Actual Procedures p Minor Excision Right Upper Thigh(Right) - Demarco Carrion, Ordered Studies 10/08/18 14:29 CT abd pelvis oral and IV con Stat 10/10/18 08:29 US extremity non-vascular ltd Routine Hospital Course (1) Right inguinal pain: U/S of groin completed: there is a complex, largely solid partially cystic 5.4 x 2.2 x 3.2 cm collection at the site of clinical interest in the medial right thigh. This is avascular on color Doppler. This is very well-defined with a well-defined wall. Surrounding fat infiltration suggested. s/p excision on 10/[address] Carrion, appears to be a lipoma no right inguinal pain on day of discharge c/o hard nodule in inguinal region, discussed that the two lesions not related Dr. Carrion examined 10/15/18, no further intervention needed patient can shower, no baths follow up with Dr. Carrion (2) Infection associated with internal left knee prosthesis: Patient with prolonged hospital stay last month with complaint of left knee pain. Prolonged hospital stay at [facility] prior to that secondary to infection of left knee prosthesis. Presently states his left knee feels ok. Patient was seen by ID during his prior hospital stay. He is to complete 6 weeks of antibiotics (started on 08/31/18. End date should be .) Patient with antibiotic spacer in place presently - will need future surgery, explant and replacement of prosthetic. He has a followup appointment with [facility] scheduled for 10/15/18. Ultimately will most likely require surgery performed at a tertiary care center. Patient is to followup with Dr. Serrano on 10/14/18. As noted above, will continue ceftriaxone 2 g IV daily * ID consultation as above - appreciate assistance * Pain control with Oxycontin 30mg po BID and Oxycodone 10mg po q 4 hours PRN * patient will need new follow up with [facility], new appointment arranged for 10/22/18 certainly his mobility is improved, transferring out of bed, ambulating with rolling walker walking in the hallway independently, very motivated to get stronger d/w Dr. Serrano, can stop IV Rocephin, ortho will want patient off of antibiotics prior to aspirating joint to look for bacteria since he will not require IV antibiotics, the patient can go home Plan: pain control with Oxycontin 30 BID and Oxycodone 10 q4 PRN instructed patient to taper back, starting with decreasing to 15mg BID Oxycontin follow up with [facility] on Sunday 10/22 provided with script for rolling walker and cane script provided for outpatient therapy (3) Hypertension: Blood pressure at goal * Continue Metoprolol 12.5mg po BID * Continue Amlodipine 10mg po daily follow up with PCP (4) Borderline diabetes: recommend he follow a low carb diet but doubt he will be compliant history of gastric bypass, eats frequent small meals during the day (5) Pneumonia: Patient found to have RLL cavitary lesions during last hospital stay c/w necrotizing PNA. Blood cultures from [place] 08/24 positive for strep pneumoniae , repeat cultures 08/31 and 09/[address] guided lung biopsy 09/27 that was negative. Transbronchial biopsy performed 09/[address] Sinclair which was negative for malignancy. Patient presently with no respiratory distress, no complaints of SOB/cough/wheeze. Lungs CTA. * completed a course of Rocephin, no further antibiotics needed * taper off of Prednisone quickly will not require antibiotics on discharge pneumonia is clinically resolved (6) BISHOP (acute kidney injury): no further evidence of BISHOP, Cr stable at 1.3-1.4 making adequate urine, no difficulty with urination (7) Anemia: Hb ranging between 7.5-8.0 normocytic, no evidence of bleeding for the 30 plus days he was hospitalized likely anemia from alcohol toxicity on bone marrow recommend that he continue to improve his nutritional status (8) Insomnia: some success with Ambien while inpatient would not continue on discharge, would want him to try sleeping at home he will sometimes take Benadryl to help him sleep (9) Cirrhosis, alcoholic: Compensated at present. will eventually need referred to GI as outpatient but this can wait until after his left knee is dealt with this was diagnosed last hospitalization, CT scan showed cirrhotic morphology h/o heavy alcohol abuse, last drink was over 2 months ago patient swears that he is done drinking, he knows that further drinking will lead to worsening liver function plan: see the instructions below Total Time Total Time Spent Total Time Spent (In Minutes): 60 minutes Total Time Includes: Examination of the Patient, Discharge Planning, Medication Reconciliation and Communication With Other Providers Discharge Plan Discharge Items Patient Disposition: Home - Self-Care Reason For Visit: RIGHT GROIN PAIN Discharge Diagnosis: Right groin lipoma, removed Left knee prosthetic infection, Strep pneumo Cirrhosis, Anemia, Pneumonia Condition: Good Discharge Goals: Decrease discomfort, Improve function, Increase independence and Specific goals Specific Goals: follow up with [facility] at [place] on 10/22/18 Activity: Per 'Additional Instructions' section Lifting: None Bathing: No limitations Bathing Comment: may shower, do not soak in tub Sexual Activity: When tolerated Exercise/Sports: Gradually increase as tolerated Driving/Machine Use Comment: do not drive because you are on narcotics Weightbearing: Left partial Weightbearing Comment: use rolling walker, do not put more than 150lb on left leg Non-emergency contact: Primary Care Provider and Surgeon Call non-emergency contact if: you have any medication questions, your symptoms worsen, your pain is worsening and you have a fever Follow-up/Referrals: Demarco Carrion, DO [Surgeon] - (Please follow-up in General Surgery clinic in 1-2 weeks. Please call the clinic at [phone] to make this appointment. ) Meli Vásquez MD [Primary Care Provider] - 10/25/18 10:00 am (Please, follow up with Dr. Vásquez on SundayOctober 25 at 10:00 am. *If you need to change this appointment, call the office at [phone].) Freddie Baldwin M.D. [Staff Physician] - 10/22/18 1:40 pm (Please, follow up at [facility] with Dr. Freddie Baldwin' project construction assistant manager, Lauren Shearer PA-C, on SundayOctober 22 at 2:00 pm (arrive 1:40 pm). *This office is located at [address] in [place]. USE ENTRANCE "B" AND GO TO [address] If you can't keep this appointment it is important that you call and reschedule it. The office phone number is [phone].) Diet: Carb Consistent or DM2 and Heart Healthy Diet Comment: eat a healthy diet, high in protein, low sugar, low salt Addtl Provider Instructions: Medications: - NORVASC: 10mg daily, blood pressure medication - METOPROLOL: 12.5mg twice a day, blood pressure medication - PREDNISONE: 10mg daily for 5 days then stop - PANTOPRAZOLE: 40mg daily, treats heartburn - OXYCONTIN: 30mg twice a day for pain control - OXYCODONE: 5-10mg every 4 hours as needed for pain - TYLENOL: take 650mg every 6 hours (4 times a day) scheduled to help with pain do not take more than this due to cirrhosis Left knee infection: you have completed more than 6 weeks of IV antibiotics at this point you will be followed off of antibiotics follow up with [facility] in [place] on Sunday10/22/18 at that point they will give their recommendations for what step to take next - I will give you a script for outpatient PT, call a make appointment at [facility] for therapy - pain control with Oxycontin and Oxycodone DO NOT TAKE MORE THAN PRESCRIBED over the next 1-2 weeks you should make every effort to take less narcotics first step would be to cut back to OxyContin 15mg twice a day from 30mg then you can try to use only 5mg of short acting you should have less pain the more active you are and the further out you get from surgery - you can use Tylenol over the counter, would recommend taking 650mg every 6 hours scheduled - you can continue to use Benadryl as needed for any itching History of alcohol abuse you have been sober now for over 2 months, need to make every effort to stay sober no alcohol in the house, friends and family need to respect this, do not drink around you go to AA meetings, get support group as we have discussed, you have cirrhosis changes but overall things are compensated if you start drinking again you will do further damage to liver any damage done to the liver is IRREVERSIBLE Malnutrition: you have done a good job of raising Albumin, you were malnourished due to alcohol abuse recommend diet high in protein and fruits and vegetables limit sugar intake and restrict sodium to less than 2gm a day, read labels can use protein bars, shakes etc for protein keep eating yogurt for good bacteria and protein do not eat excessively as your body can only use so much calories reasonable daily calorie intake is [id number] since you are building up strength FOLLOW UP - [facility] on 10/22 in [place] - Dr. Carrion, his office will call you - Dr. Vásquez, my nurse navigator will be in contact to make appointment in 1- 2 weeks Right thigh incision- you may shower, but please do not soak or scrub your incision. Do not submerge your incision in any pools, baths, or hot tubs for the next 3 weeks. Prescriptions: New amlodipine [Norvasc] 5 mg Tablet 10 mg PO QAM 30 Days Qty: 60 RF: 2 pantoprazole 40 mg Tablet,Delayed Release (Dr/Ec) 40 mg PO DAILY 30 Days Qty: 30 RF: 3 oxycodone 5 mg Tablet 10 mg PO Q4H PRN (Reason: pain) 20 Days Qty: 60 RF: 0 metoprolol tartrate 25 mg Tablet 12.5 mg PO BID 30 Days Qty: 30 RF: 2 oxycodone [OxyContin] 15 mg Tablet,Oral Only,Ext.Rel.12 Hr 30 mg PO Q12H 20 Days Qty: 80 RF: 0 prednisone 10 mg tablet 10 mg PO DAILY 5 Days Qty: 5 RF: 0 Discontinued acetaminophen [Mapap (acetaminophen)] 325 mg Tablet 650 mg PO Q4H PRN (Reason: fever or pain) 30 Days Qty: 60 RF: 2 amlodipine [Norvasc] 5 mg Tablet 10 mg PO QAM 30 Days Qty: 60 RF: 3 lorazepam 1 mg Tablet 1 mg PO HS PRN (Reason: insomnia) 30 Days Qty: 30 RF: 0 oxycodone 5 mg Tablet 10 mg PO Q4H PRN (Reason: pain) 14 Days Qty: 84 RF: 0 metoprolol tartrate 25 mg Tablet 12.5 mg PO BID 30 Days Qty: 30 RF: 3 oxycodone [OxyContin] 15 mg Tablet,Oral Only,Ext.Rel.12 Hr 30 mg PO Q12H 14 Days Qty: 56 RF: 0 ceftriaxone 2 gram recon soln 2 gm IV DAILY 28 Days Qty: 28 RF: 0 diphenhydramine HCl [Benadryl Allergy] 25 mg tablet 25 mg PO Q8H PRN (Reason: itching) Qty: 30 RF: 0 prednisone 20 mg tablet 40 mg PO UD 21 Days Qty: 25 RF: 0 Visit Report [facility]Alone [facility]: [facility], Opioid Pain Management Discharge Orders: Discharge Order (Routine); Ordered 10/17/18 Ordered By: Barry Hernandez Admission Data Admit Date/Time: 10/11/18 05:52 Attending Provider: Barry Hernandez Admit Provider: Estella Loja Primary Care Provider: Meli Vásquez Other Providers: Estella Loja ; Sen Serrano ; Meli Beltran ; Demarco Carrion Service: Medical Other Interventions: Discharge Summary Assessment (RN) Last Done: 10/17/18 08:19 Pending Studies at Discharge: No DC Date/Time DO NOT enter until pt leaves facility: 10/17/18 14:39
== END 2018-10-17 14:39 | disposition home or self-care (01) | DRG 570 ==
LOC: 3W 13:28 → ED 13:28 → SUATTDRO 18:54 → 3W 21:02 → SUATTDRO 10-11 05:52
DX: B95.3 Streptococcus pneumoniae as the cause of diseases classified elsewhere; K70.30 Alcoholic cirrhosis of liver without ascites; J85.0 Gangrene and necrosis of lung; D17.79 Benign lipomatous neoplasm of other sites; R10.31 Right lower quadrant pain; R73.03 Prediabetes; Y79.2 Prosthetic and other implants, materials and accessory orthopedic devices associated with adverse incidents; Z98.84 Bariatric surgery status; T84.52XA Infection and inflammatory reaction due to internal left hip prosthesis, initial encounter; Z82.49 Family history of ischemic heart disease and other diseases of the circulatory system; Z87.891 Personal history of nicotine dependence; D64.9 Anemia, unspecified; Z83.3 Family history of diabetes mellitus; Z96.652 Presence of left artificial knee joint; F43.10 Post-traumatic stress disorder, unspecified; N18.9 Chronic kidney disease, unspecified; K74.60 Unspecified cirrhosis of liver; G47.00 Insomnia, unspecified; I12.9 Hypertensive chronic kidney disease with stage 1 through stage 4 chronic kidney disease, or unspecified chronic kidney disease; F11.21 Opioid dependence, in remission; N17.9 Acute kidney failure, unspecified

== ENCOUNTER 2018-11-22 15:01 | Inpatient (IN) ==
[2018-11-22] MEDS ORDERED: DiphenhydrAMINE HCL 50 MG/ML VIAL IV STA ×2 (15:54→20:45)
[2018-11-22] MEDS ORDERED: HYDROmorphone INJ 1 MG/ML SYRINGE IV STA ×3 (15:54→17:30)
[2018-11-22] MEDS: ONDANSETRON INJ 2 MG/ML 2 ML VIAL IV STA ×2 (16:26)
[2018-11-22 16:50] LABS: Basophils # (auto) 0.02 K/uL (0-0.2); Basophils % (auto) 0.2 %; Eosinophils # (auto) 0.25 K/uL (0-0.5); Eosinophils % (auto) 3.1 %; Hematocrit (blood only) 26.6 % (42-52); Hemoglobin 8.3 g/dL (14.0-18.0); Immature Granulocytes # (auto) 0.01 K/uL (0.00-0.02); Immature Granulocytes % (auto) 0.1 %; Lymphocytes # (auto) 2.38 K/uL (1.2-3.4); Lymphocytes % (auto) 29.4 %; Mean Corpuscular Hgb Conc 31.2 g/dL (32-36); Mean Corpuscular Volume 92.7 fL (80-100); Mean Platelet Volume 8.2 fL (7.4-10.4); Monocytes # (auto) 0.52 K/uL (0.11-0.59); Monocytes % (auto) 6.4 %; Neutrophils # (auto) 4.92 K/uL (1.4-6.5); Neutrophils % (auto) 60.8 %; Platelet Count 401 K/uL (130-400); RDW Coefficient of Variation 16.4 % (11.5-14.5); RDW Standard Deviation 56.1 fL (36.4-46.3); Red Blood Count 2.87 M/uL (4.7-6.1)
[2018-11-22 17:08] LABS: BUN Creatinine Ratio 9.3 (10-20); Calcium 8.4 mg/dl (8.5-10.1); Creatinine Clr Calc Pharmacy 44.7 ml/min; Est GFR (African American) 46.8; Est GFR (Non-African American) 40.3; Potassium 3.7 mmol/L (3.5-5.1)
--- NOTE | 2018-11-22 17:10 | Emergency Department Note ---
Entered by Doug Armstrong acting as a scribe for History of Present Illness General Chief complaint: Abdominal Pain Stated complaint: HERNIA Time Seen by Provider: 11/22/18 15:47 Source: patient Limitations: no limitations History of Present Illness Provider complaint: Lower abdominal pain Onset (ago): minute(s) (90) Location: abdomen Radiation: other (into the testicles) Severity: severe Pain Consistency: + constant and + other (worsening) Maximum Pain Intensity: 10 Quality: + sharp Associated symptoms: no nausea/vomiting Treatments prior to arrival: none The patient is a 58 year old male who presents to the Emergency Room with complaints of severe and worsening abdominal pain. The patient states that he has a known hernia in his lower abdomen that has been causing him problems for the past 2 weeks. He has reduced the hernia several times himself. The pain from the hernia has been acutely worsening over the past two days. About 90 minutes ago the pain worsened significantly and became "unbearable." He states that he felt a sudden "sharp" pain shoot through his whole body, and now he can feel the pain radiating into his testicles. The patient has had the hernia repaired in the past by Dr. Ugalde. He is not on any blood thinners. He denies having anything to eat or drink lately. Review of the patient's EMR shows that he was seen here in the ED 2 days ago. There was concern for pneumonia and he was seen for admission, but he was not believed to have pneumonia clinically. He was discharged from the ER. Home Medications Home Medications Medication Instructions Recorded Confirmed Type amlodipine [Norvasc] 10 mg PO QAM 30 Days #60 tab 10/17/18 11/22/18 Rx metoprolol tartrate 12.5 mg PO BID 30 Days #30 tab 10/17/18 11/22/18 Rx pantoprazole 40 mg PO DAILY 30 Days #30 tab 10/17/18 11/22/18 Rx Allergies Allergy/AdvReac Type Severity Reaction Status Date / Time No Known Allergies Allergy Verified 11/22/18 16:03 Past Med/Surg History Medical History PTSD (post-traumatic stress disorder) (Chronic) Anemia Borderline diabetes CKD (chronic kidney disease) Cavitary lesion of lung Cirrhosis Heroin overdose High blood pressure Surgical History History of gastric bypass History of hernia repair Hx of foot surgery S/P excision of lipoma Right thigh on 10/13/18 under [place] with LMA#5 Status post left knee replacement With multiple revisions. Presently with antibiotic spacer in place Family History Other Diabetes Heart disease Social History marital status: Current Living Situation: Spouse Feels Safe at Home: Yes Smoking Status: Current every day smoker Tobacco Type: cigarettes Hx Alcohol Use: Yes Alcohol Intake Frequency: 3 or more drinks per day Hx Substance Use: Yes substance use type: former substance user, heroin and IV drugs Beliefs That Will Affect Care: None Preferred Language: Indian Review of Systems See HPI for pertinent positives & negatives. and A total of 10 systems reviewed and were otherwise negative Physical Exam Vital Signs Vital Signs - 24 hr 11/22/18 15:23 11/22/18 15:46 11/22/18 16:53 Temperature 36.9 C Temperature Source Oral Sepsis Recent Fever Within 48 Hours No Sepsis New/Unexplained Change in Mental Status No Sepsis Action Taken by Nursing No Action Required Pulse Rate 81 Pulse Rate [Finger] 75 78 Pulse Rhythm Regular Pulse Strength Normal Respiratory Rate 20 20 23 Respiratory Effort / Characteristics Non-Labored Spontaneous Respiratory Depth Normal Respiratory Pattern Regular Blood Pressure 156/82 H Blood Pressure [Right Arm] 133/81 139/76 Blood Pressure Mean 106 Blood Pressure Mean [Right Arm] 98 97 Blood Pressure Position Sitting Pulse Oximetry 100 100 99 Oxygen Delivery Method Room Air Room Air Room Air 11/22/18 17:33 Temperature Temperature Source Sepsis Recent Fever Within 48 Hours Sepsis New/Unexplained Change in Mental Status Sepsis Action Taken by Nursing Pulse Rate Pulse Rate [Finger] 79 Pulse Rhythm Pulse Strength Respiratory Rate 19 Respiratory Effort / Characteristics Respiratory Depth Respiratory Pattern Blood Pressure Blood Pressure [Right Arm] 155/88 H Blood Pressure Mean Blood Pressure Mean [Right Arm] 110 Blood Pressure Position Pulse Oximetry 100 Oxygen Delivery Method Room Air GENERAL: Patient is in no acute distress. HEENT: No acute trauma, normocephalic atraumatic, mucous membranes moist, no nasal congestion, no scleral icterus. NECK: No stridor, no adenopathy, no meningismus, trachea is midline. LUNGS: Clear to auscultation bilaterally, no wheeze, no rhonchi, breath sounds equal. HEART: Without murmurs gallops or rubs, regular rate and rhythm. ABDOMEN: Soft, bowel sounds positive, no peritonitis. There is a 4cm right inguinal hernia, tender to touch. Currently non-reducible. EXTREMITIES: No cyanosis or edema, full range of motion of all the joints without pain or difficulty, no signs for acute trauma. There is a wrap/brace on the right lower extremity. NEUROLOGIC: Oriented x 3, no acute motor or sensory deficits, no focal weakness. SKIN: No rash, no jaundice, no diaphoresis. Procedures Free Text Procedures HERNIA REDUCTION: Used constant pressure in attempt to reduce right inguinal hernia. Attempts unsuccessful. Course 1551: Past medical records reviewed. The patient was evaluated in room B2, and a complete history and physical examination were performed. 1606: I discussed the case with Luis Burton PA-C. He states that he will call Dr. Cee. 1645: I attempted to reduce the hernia at this time. Reduction was unsuccessful. I will call surgery again. 1650: I reviewed the patient's case with Luis Burton PA-C. He will see the patient in the department. 1738: Luis Barron will take the patient to the operating room when a room is available. Consultations Consultation #1: 1650: I reviewed the patient's case with Luis Burton PA-C. He will see the patient in the department. Administered Medications Discontinued Medications Diphenhydramine HCl (Benadryl) 25 mg IV NOW STA Stop: 11/22/18 15:55 Last Admin: 11/22/18 16:26 Dose: 25 mg Hydromorphone HCl (Dilaudid) 1 mg IV NOW STA Stop: 11/22/18 15:55 Last Admin: 11/22/18 16:26 Dose: 1 mg Hydromorphone HCl (Dilaudid) 1 mg IV NOW STA Stop: 11/22/18 16:46 Last Admin: 11/22/18 16:51 Dose: 1 mg Hydromorphone HCl (Dilaudid) 1 mg IV NOW STA Stop: 11/22/18 17:31 Last Admin: 11/22/18 17:32 Dose: 1 mg Ondansetron HCl (Zofran) 4 mg IV NOW STA Stop: 11/22/18 16:10 Last Admin: 11/22/18 16:26 Dose: Not Given Admin: 11/22/18 16:26 Dose: 4 mg Medical Decision Making Differential Diagnosis Differential Diagnosis includes: Incarcerated hernia, strangulated hernia, bowel obstruction, testicular torsion , musculoskeletal pain, dehydation, and UTI. Medical Records Attestation: I reviewed the patient's medical records. Home Medications Current Medication List: was personally reviewed by me Laboratory Data Attestation: I reviewed the patient's lab results. Result diagrams: 11/22/18 16:30 11/22/18 16:30 Lab Results 11/22/18 11/22/18 Range/Units 16:30 16:30 WBC 8.10 (4.8-10.8) K/uL RBC 2.87 L (4.7-6.1) M/uL Hgb 8.3 L (14.0-18.0) g/dL Hct 26.6 L (42-52) % MCV 92.7 (80-100) fL MCH 28.9 (25-34) pg MCHC 31.2 L (32-36) g/dL RDW Std Deviation 56.1 H (36.4-46.3) fL RDW Coeff of Leatha 16.4 H (11.5-14.5) % Plt Count 401 H (130-400) K/uL MPV 8.2 (7.4-10.4) fL Immature Gran % (Auto) 0.1 % Neut % (Auto) 60.8 % Lymph % (Auto) 29.4 % Hanson % (Auto) 6.4 % Eos % (Auto) 3.1 % Baso % (Auto) 0.2 % Immature Gran # (Auto) 0.01 (0.00-0.02) K/uL Neut # (Auto) 4.92 (1.4-6.5) K/uL Lymph # (Auto) 2.38 (1.2-3.4) K/uL Hanson # (Auto) 0.52 (0.11-0.59) K/uL Eos # (Auto) 0.25 (0-0.5) K/uL Baso # (Auto) 0.02 (0-0.2) K/uL Basophilic Stippling 1+ Sodium 144 (136-145) mmol/L Potassium 3.7 (3.5-5.1) mmol/L Chloride 113 H (98-107) mmol/L Carbon Dioxide 26 (21-32) mmol/L Anion Gap 5.0 (3-11) BUN 17 (7-18) mg/dl Creatinine 1.83 H (0.6-1.4) mg/dl Est Cr Clr Drug Dosing 44.7 ml/min Est GFR ( Amer) 46.8 Est GFR (Non-Af Amer) 40.3 BUN/Creatinine Ratio 9.3 L (10-20) Glucose 111 H (70-99) mg/dl Calcium 8.4 L (8.5-10.1) mg/dl Blood Pressure Blood Pressure Findings: Elevated blood pressure Blood Pressure Disposition: further management by hospitalist MDM Narrative There is no leukocytosis. The patient is anemic but this is baseline looking back at previous testing. There is renal insufficiency but this is baseline. No significant electrolyte abnormality requiring correction. Urinalysis result is pending. On exam, the patient has an incarcerated right inguinal hernia. The area was quite tender. Patient received IV Benadryl, IV Dilaudid and IV Zofran. I did attempt to reduce the hernia, I was not successful. The patient was given additional IV Dilaudid for pain control. I did speak with surgery. The patient was evaluated in the ED by surgery. He is going to require OR intervention. Patient is aware of his findings and the need for surgery. Case management has been involved. Impression & Plan Incarcerated right inguinal hernia Discharge Plan Visit Data Chief Complaint: Abdominal Pain Stated Complaint: HERNIA ED Provider: Juan Fernandez Discharge Problem: Incarcerated right inguinal hernia Patient Disposition: Being Evaluated by Surgeon Forms Stand Alone Forms: Call Back Authorization, [facility], Important Visit Information Prescriptions Prescriptions: No Action amlodipine [Norvasc] 5 mg Tablet 10 mg PO QAM 30 Days Qty: 60 RF: 2 pantoprazole 40 mg Tablet,Delayed Release (Dr/Ec) 40 mg PO DAILY 30 Days Qty: 30 RF: 3 metoprolol tartrate 25 mg Tablet 12.5 mg PO BID 30 Days Qty: 30 RF: 2 Referrals Referrals: Meli Vásquez MD [Primary Care Provider] - The scribe's documentation has been prepared under my direction and personally reviewed by me in its entirety. I confirm that the note above accurately reflects all work, treatment, procedures, and medical decision making performed by me.
[2018-11-22 17:16] LABS: Basophilic Stippling 1+
--- NOTE | 2018-11-22 17:32 | History & Physical Report ---
Date of Service November 22, 2018 Assessment & Plan (1) Inguinal hernia: Incarcerated right inguinal hernia will require urgent repair. Dr. Cee discussing the case with the OR for this evening. History of Present Illness Primary Care Provider: Meli Vásquez MD 58 y/o male with right inguinal hernia more symptomatic and difficult to reduce over past two days. He was in the ER three days ago, was to follow-up with Dr. Ugalde on Sunday but was unable to make the appt. He has difficulty with lower extremities. Has antibiotic spacer in the left knee and was transferred last week [place] [facility] [place] [facility] [place]. Allergies Allergy/AdvReac Type Severity Reaction Status Date / Time No Known Allergies Allergy Verified 11/22/18 16:03 Home Medications Home Medications Medication Instructions Recorded Confirmed Type amlodipine [Norvasc] 10 mg PO QAM 30 Days #60 tab 10/17/18 11/22/18 Rx metoprolol tartrate 12.5 mg PO BID 30 Days #30 tab 10/17/18 11/22/18 Rx pantoprazole 40 mg PO DAILY 30 Days #30 tab 10/17/18 11/22/18 Rx Past Med/Surg History Medical History PTSD (post-traumatic stress disorder) (Chronic) Anemia Borderline diabetes CKD (chronic kidney disease) Cavitary lesion of lung Cirrhosis Heroin overdose High blood pressure Surgical History History of gastric bypass History of hernia repair Hx of foot surgery S/P excision of lipoma Right thigh on 10/13/18 under [place] with LMA#5 Status post left knee replacement With multiple revisions. Presently with antibiotic spacer in place Family History Other Diabetes Heart disease Social History marital status: Current Living Situation: Spouse Feels Safe at Home: Yes Smoking Status: Current every day smoker Tobacco Type: cigarettes Hx Alcohol Use: Yes Alcohol Intake Frequency: 3 or more drinks per day Hx Substance Use: Yes substance use type: former substance user, heroin and IV drugs Beliefs That Will Affect Care: None Preferred Language: Marshallese Review of Systems Constitutional: as per Subjective / HPI Physical Exam 2 Vital Signs (Past 24 Hours): Last Vital Signs Temp 36.9 C 11/22/18 15:23 Pulse 78 11/22/18 16:53 Resp 23 11/22/18 16:53 BP 139/76 11/22/18 16:53 Pulse Ox 99 11/22/18 16:53 Constitutional: + acute distress Respiratory: normal respiratory effort, lungs clear to auscultation Cardiovascular: RRR, no murmur, no edema Gastrointestinal (Abdomen): Inspection/Auscultation: abdomen not distended Percussion/Palpation: + abdomen tender (right inguinal hernia, nonreducible) and abdomen soft _ (1) Inguinal hernia Laterality: unilateral Obstruction and gangrene presence: without obstruction or gangrene Recurrence: recurrent Qualified Code(s): K40.91 - Unilateral inguinal hernia, without obstruction or gangrene, recurrent
[2018-11-22] MEDS ORDERED: BUPIVACAINE 0.5 % 5 MG/1 ML MPF 30ML VIAL ONE (17:38)
[2018-11-22] MEDS ORDERED: BACITRACIN INJ 50,000 UNIT VIAL ONE (17:38)
--- NOTE | 2018-11-22 17:44 | History & Physical Bridge Note ---
Date of Service November 22, 2018 History & Physical Bridge Note I have examined the patient, reviewed the History & Physical and in the interval since the performance of the History & Physical I have noted the following changes of clinical significance: no changes noted incarcerated right ing hernia unable to reduce tender can"t really get pt comfortable abd soft plan for or open right inc hernia r and c explained to pt including possible bowel resection pt marked will give another dose of dilaudid
[2018-11-22] MEDS ORDERED: fentaNYL citrate 100 MCG/2 ML VIAL ONE (17:46)
[2018-11-22] MEDS ORDERED: MIDAZOLAM HCL 1 MG/ML 2ML VIAL ONE (17:46)
[2018-11-22] MEDS ORDERED: LIDOCAINE HCL 2% 2 ML VIAL/AMP(20MG/ML) INFIL ONE (17:49)
[2018-11-22] MEDS ORDERED: ONDANSETRON INJ 2 MG/ML 2 ML VIAL ONE (17:49)
[2018-11-22] MEDS ORDERED: PROPOFOL IV EMULSION 10 MG/ML 20 ML VIAL IV ONE (17:49)
[2018-11-22] MEDS ORDERED: DEXAMETHASONE SOD INJ 4 MG/ML VIAL ONE (17:49)
[2018-11-22] MEDS ORDERED: ROCURONIUM BROMIDE 10 MG/ML 5 ML VIAL ONE (17:49)
[2018-11-22] MEDS ORDERED: ePHEDrine sulfate 50 MG/ML AMP IV PRN (18:03)
[2018-11-22] MEDS ORDERED: ATROPINE SULFATE 0.1 MG/ML 10ML SYR IV PRN (18:03)
[2018-11-22] MEDS ORDERED: ONDANSETRON INJ 2 MG/ML 2 ML VIAL IV PRN (18:03)
--- NOTE | 2018-11-22 18:07 | Anesthesiology Consultation ---
Date of Service November 22, 2018 Assessment & Plan (1) Encounter for pre-operative examination: Chart Review Chart Review: Acceptable Risk for Surgery and Patient NOT seen in Pre Admission Testing Consults Requested none NPO Date Last Intake of Fluids: 11/22/18 Time Last Intake of Fluids: 06:45 Date Last Intake of Solids: 11/22/18 Time Last Intake of Solids: 06:45 History Surgery Operation Date: 11/22/18 17:30 Proposed Procedures p Inguinal Hernia Repair - Vinayak Cee MD, FACS Height/Weight Height: 6 ft Weight: 70.1 kg Allergies Allergy/AdvReac Type Severity Reaction Status Date / Time No Known Allergies Allergy Verified 11/22/18 16:03 Medications Home Medications Medication Instructions Recorded Confirmed Last Taken amlodipine [Norvasc] 10 mg PO QAM 30 Days #60 tab 10/17/18 11/22/18 11/21/18 metoprolol tartrate 12.5 mg PO BID 30 Days #30 tab 10/17/18 11/22/18 11/21/18 pantoprazole 40 mg PO DAILY 30 Days #30 tab 10/17/18 11/22/18 11/21/18 Past Medical History Medical History PTSD (post-traumatic stress disorder) (Chronic) Anemia Borderline diabetes CKD (chronic kidney disease) Cavitary lesion of lung Cirrhosis Heroin overdose High blood pressure Past Family History Family History Other Diabetes Heart disease Past Surgical History Surgical History History of gastric bypass History of hernia repair Hx of foot surgery S/P excision of lipoma Right thigh on 10/13/18 under [place] with LMA#5 Status post left knee replacement With multiple revisions. Presently with antibiotic spacer in place Past Anesthesia History No Hx of Anesthesia Complications and No Family Hx of Anesthesia Complications History of PONV No Social History Smoking Status: Current every day smoker tobacco type: cigarettes Hx Alcohol Use: Yes alcohol intake frequency: 3 or more drinks per day Hx Substance Use: Yes substance use type: former substance user, heroin and IV drugs Exercise / Class Metabolic Activity III < 4 Walking/Shop/Light housework Physical Exam Vital Signs Last Vital Signs Temp 36.9 C 11/22/18 15:23 Pulse 79 11/22/18 17:33 Resp 19 11/22/18 17:49 BP 155/88 H 11/22/18 17:33 Pulse Ox 100 11/22/18 17:49 Testing Other Testing Electrocardiogram Date: 09/10/18 Findings: + NSR @ (84) Echocardiogram Date: 09/24/18 EF: 55-60% LV Function: normal RWMA: + none Valvular Disease: + no significant valvular disease Laboratory Results 11/22/18 16:30 11/22/18 16:30
[2018-11-22] MEDS ORDERED: CEFAZOLIN 250 MG/ML 1 GM VIAL ONE (18:45)
[2018-11-22] MEDS ORDERED: NEOSTIGMINE METHYLSULFATE 5 MG/5 ML SYR ONE (18:47)
[2018-11-22] MEDS ORDERED: GLYCOPYRROLATE 0.2 MG/ML VIAL ONE ×2 (18:47→18:48)
[2018-11-22] MEDS ORDERED: LARYING-O-JET KIT (LTA) ONE (18:50)
[2018-11-22] MEDS ORDERED: CEFAZOLIN 2000MG 2,000 MG/15 ML SYR IV SCH (19:06)
[2018-11-22] MEDS ORDERED: DexMEDEtomidine HCL IV 100 MCG/ML VIAL ONE (19:08)
[2018-11-22] MEDS ORDERED: SODIUM CHLORIDE 0.9% INJ 10 ML VIAL ONE (19:17)
[2018-11-22] MEDS ORDERED: PHENYLEPHRINE 100MCG/ML 5ML SYR ONE (19:18)
--- NOTE | 2018-11-22 19:30 | Post Operative Brief Note ---
Immediate Post Op Note v1 Date of Surgery November 22, 2018 Pre & Post Diagnosis Operation Date: 11/22/18 17:30 Pre-Op Diagnosis: Right incarcerated inguinal hernia Post-Op Diagnosis: Right incarcerated inguinal hernia Procedure Operation Date: 11/22/18 17:30 Actual Procedures p Right incarcerated Inguinal Indirect Hernia Repair with Mesh with Lipoma of the Cord (Right) - Vinayak Cee MD, FACS Surgeon Vinayak Cee MD, FACS Pattern Shop Supervisor 0 Estimated Blood Loss 5 Findings Consistent with Post-Op Diagnosis
--- NOTE | 2018-11-22 19:51 | Operative Report ---
Post Operative Report Pre & Post Diagnosis Operation Date: 11/22/18 17:30 Pre-Op Diagnosis: Right incarcerated inguinal hernia Post-Op Diagnosis: Right incarcerated inguinal hernia Procedure Operation Date: 11/22/18 17:30 Actual Procedures p Right incarcerated Inguinal Indirect Hernia Repair with Mesh with Lipoma of the Cord (Right) - Vinayak Cee MD, FACS The patient was brought into the operating theater supine position general endotracheal anesthesia the abdomen was prepped with Betadine scrub and solution properly draped systemic antibiotics given a timeout was had 0.5% Marcaine without epinephrine wheezes preemptive analgesic 2 fingerbreadths medial to the anterior superior iliac crest more local was used along the incision the hernia which had been incarcerated indication for surgery at this time it reduced incision made about 3 inches long parallel to the inguinal ligament deep with the subcutaneous tissue went down to the external fascia more local was used underneath the fascia was opened along the cord the fascia fibers to the external ring we could identify some edema at the external ring no tissue was really evidently incarcerated we elevated the cord and structures were a Claribel drain and then identified a very thick sac along the cord which we took it off from the indirect area opened it put a finger in the abdomen floor appeared to be intact but a bit weak resected the sac which had no contents ligating its base with 2-0 silk suture patient also had a large lipoma which is likely coming down indirect finger which we ligated and divided at this point we reinforced the direct area with 3-0 interrupted silk suture or transversalis fascia we continued all the way to the external spermatic fascia and the indirect area closed and tightened up the indirect ring internal ring sheet of mesh was then brought up onto the field and sutured onto the symphysis pubis shelving portion of the inguinal ligament conjoined tendon superiorly laterally and reconstructed the internal ring could only accommodate a tip of a hemostat more local was used in the area then at this point we closed the external fascia on top of the cord and structures with 3 interrupted silk suture 2-0 Vicryl continuous fashion subcutaneous jitendra for skin edges dressing was applied procedure was tolerated well by the patient estimated blood loss 5 cc thank you Surgeon Vinayak Cee MD, FACS Chief Information Officer 0 Estimated Blood Loss 5 Findings Consistent with Post-Op Diagnosis Specimens hernia sac lipoma cord Description of Procedure merda I attest to the content of the Intraoperative Record and any orders documented therein. Any exceptions are noted below.
[2018-11-22] MEDS: fentaNYL citrate 100 MCG/2 ML VIAL IV PRN ×4 (20:00→20:15)
[2018-11-22] MEDS ORDERED: DiphenhydrAMINE HCL 50 MG/ML VIAL ONE (20:18)
[2018-11-22] MEDS: HYDROmorphone INJ 1 MG/ML SYRINGE IV PRN ×4 (20:20→20:36)
--- NOTE | 2018-11-22 21:24 | Anesthesiology Progress Note ---
Date of Service November 22, 2018 Anesthesia Post Procedure Vital Signs Vital Signs: Temp Pulse Pulse Pulse Resp BP BP 11/22/18 20:55 37.0 C 11/22/18 20:50 66 14 145/86 H 11/22/18 20:45 74 17 156/90 H 11/22/18 20:42 75 12 11/22/18 20:41 67 13 147/86 H 11/22/18 20:40 66 17 11/22/18 20:36 71 17 167/93 H 11/22/18 20:35 70 17 11/22/18 20:30 69 24 155/91 H 11/22/18 20:26 69 19 169/100 H 11/22/18 20:25 75 19 11/22/18 20:20 70 21 165/94 H 11/22/18 20:17 71 15 11/22/18 20:16 72 15 163/99 H 11/22/18 20:14 69 25 H 171/99 H 11/22/18 20:12 71 18 11/22/18 20:11 69 17 173/105 H 11/22/18 20:10 69 18 11/22/18 20:06 73 15 164/103 H 11/22/18 20:05 68 23 11/22/18 20:01 62 18 151/122 H 11/22/18 20:00 67 15 11/22/18 19:56 68 19 156/95 H 11/22/18 19:55 64 18 11/22/18 19:52 72 17 156/97 H 11/22/18 19:50 72 69 16 156/97 H 11/22/18 19:46 80 19 162/98 H 11/22/18 19:45 73 14 11/22/18 19:42 66 18 147/92 H 11/22/18 19:41 37.4 C 69 71 14 147/92 H 11/22/18 17:49 19 11/22/18 17:33 79 19 155/88 H 11/22/18 16:53 78 23 139/76 11/22/18 15:46 75 20 133/81 11/22/18 15:23 36.9 C 81 20 156/82 H Pulse Ox 11/22/18 20:55 100 11/22/18 20:50 99 11/22/18 20:45 100 11/22/18 20:42 96 02/15/19 20:41 98 11/22/18 20:40 100 11/22/18 20:36 100 11/22/18 20:35 100 11/22/18 20:30 99 11/22/18 20:26 100 11/22/18 20:25 100 11/22/18 20:20 100 11/22/18 20:17 98 11/22/18 20:16 99 11/22/18 20:14 99 11/22/18 20:12 100 11/22/18 20:11 100 11/22/18 20:10 100 11/22/18 20:06 100 11/22/18 20:05 100 11/22/18 20:01 100 11/22/18 20:00 100 11/22/18 19:56 100 11/22/18 19:55 100 11/22/18 19:52 99 11/22/18 19:50 100 11/22/18 19:46 100 11/22/18 19:45 100 11/22/18 19:42 100 11/22/18 19:41 100 11/22/18 17:49 100 11/22/18 17:33 100 11/22/18 16:53 99 11/22/18 15:46 100 11/22/18 15:23 100 Pain Intensity Right Groin: Pain Intensity: 6 Notes Mental Status: alert / awake / arousable and participated in evaluation Patient Amnestic to Procedure: Yes Nausea / Vomiting: adequately controlled Pain: adequately controlled Airway Patency, RR, SpO2: stable & adequate BP & HR: stable & adequate Hydration State: stable & adequate Anesthetic Complications: no major complications apparent and Pt Satisfied with anesthetic care
[2018-11-22] MEDS: LACTATED RINGER'S 1,000 ML IV SCH (22:33)
[2018-11-22] MEDS: METOPROLOL TARTRATE 25 MG TAB PO SCH (22:42)
[2018-11-22 23:42] LABS: Appearance Urine Clear (Clear); Bacteria Urine Automated Negative (Negative); Bilirubin Urine Negative (Negative); Blood Urine 3+ (Negative); Color Urine Yellow; Glucose Urine UA Negative (Negative); Ketones Urine Negative (Negative); Leukocyte Esterase Urine Negative (Negative); Nitrite Urine Negative (Negative); Protein Urine Trace (Negative); RBC Urine Automated >30 /hpf (0-4); Specific Gravity Urine 1.017 (1.000-1.030); Urobilinogen Urine Negative (Negative)
[2018-11-23] MEDS: HYDROmorphone INJ 1 MG/ML SYRINGE IV PRN ×4 (00:51→09:47)
[2018-11-23] MEDS: OXYCODONE/ACETAMINOPHEN 5mg/325mg TAB PO PRN ×2 (05:24→09:16)
[2018-11-23] MEDS: METOPROLOL TARTRATE 25 MG TAB PO SCH (08:48)
[2018-11-23] MEDS ORDERED: AMLODIPINE BESYLATE 5 MG TAB PO SCH (09:00)
[2018-11-23] MEDS ORDERED: PANTOprazole 40 MG TAB PO SCH (09:00)
[2018-11-23] MEDS: LACTATED RINGER'S 1,000 ML IV SCH (09:46)
--- NOTE | 2018-11-23 10:40 | Surgery Progress Note ---
Date of Service November 23, 2018 Assessment & Plan (1) Incarcerated right inguinal hernia: POD #1 Pre-Op Diagnosis: s/p Right incarcerated Inguinal Indirect Hernia Repair with Mesh with Lipoma of the Cord Patient seen and examined with Dr. Cee Patient doing well Will advance to regular diet. Ok for discharge. Return instructions provided. Both verbal and written discharge instructions given. Subjective Patient resting comfortably in bed- doing well this AM pain controlled. Physical Exam 2 Vital Signs (Past 24 Hours): Last Vital Signs Temp 37.2 C 11/23/18 07:52 Pulse 64 11/23/18 07:52 Resp 16 11/23/18 07:52 BP 133/83 11/23/18 07:52 Pulse Ox 100 11/23/18 07:52
--- NOTE | 2018-11-23 10:49 | Anesthesiology Progress Note ---
Date of Service November 23, 2018 Anesthesia Post Procedure Vital Signs Vital Signs: Temp Pulse Pulse Pulse Resp BP BP 11/23/18 07:52 37.2 C 64 16 133/83 11/23/18 03:27 36.8 C 78 16 126/68 11/23/18 00:05 36.9 C 79 18 157/89 H 11/22/18 23:05 36.6 C 73 16 162/87 H 11/22/18 22:43 88 11/22/18 22:10 36.6 C 72 16 165/82 H 11/22/18 21:47 36.5 C 67 18 177/95 H 11/22/18 21:05 36.9 C 68 18 11/22/18 20:55 37.0 C 11/22/18 20:50 66 14 145/86 H 11/22/18 20:45 74 17 156/90 H 11/22/18 20:42 75 12 11/22/18 20:41 67 13 147/86 H 11/22/18 20:40 66 17 11/22/18 20:36 71 17 167/93 H 11/22/18 20:35 70 17 11/22/18 20:30 69 24 155/91 H 11/22/18 20:26 69 19 169/100 H 11/22/18 20:25 75 19 11/22/18 20:20 70 21 165/94 H 11/22/18 20:17 71 15 11/22/18 20:16 72 15 163/99 H 11/22/18 20:14 69 25 H 171/99 H 11/22/18 20:12 71 18 11/22/18 20:11 69 17 173/105 H 11/22/18 20:10 69 18 11/22/18 20:06 73 15 164/103 H 11/22/18 20:05 68 23 11/22/18 20:01 62 18 151/122 H 11/22/18 20:00 67 15 11/22/18 19:56 68 19 156/95 H 11/22/18 19:55 64 18 11/22/18 19:52 72 17 156/97 H 11/22/18 19:50 72 69 16 11/22/18 19:46 80 19 162/98 H 11/22/18 19:45 73 14 11/22/18 19:42 66 18 147/92 H 11/22/18 19:41 37.4 C 69 71 14 11/22/18 17:49 19 11/22/18 17:33 79 19 11/22/18 16:53 78 23 11/22/18 15:46 75 20 11/22/18 15:23 36.9 C 81 20 156/82 H BP Pulse Ox 11/23/18 07:52 100 11/23/18 03:27 100 11/23/18 00:05 100 11/22/18 23:05 100 11/22/18 22:43 164/82 H 11/22/18 22:10 100 11/22/18 21:47 100 11/22/18 21:05 159/86 H 100 11/22/18 20:55 100 11/22/18 20:50 99 11/22/18 20:45 100 11/22/18 20:42 96 11/22/18 20:41 98 11/22/18 20:40 100 11/22/18 20:36 100 11/22/18 20:35 100 11/22/18 20:30 99 11/22/18 20:26 100 11/22/18 20:25 100 11/22/18 20:20 100 11/22/18 20:17 98 11/22/18 20:16 99 11/22/18 20:14 99 11/22/18 20:12 100 11/22/18 20:11 100 11/22/18 20:10 100 11/22/18 20:06 100 11/22/18 20:05 100 11/22/18 20:01 100 11/22/18 20:00 100 11/22/18 19:56 100 11/22/18 19:55 100 11/22/18 19:52 99 11/22/18 19:50 156/97 H 100 11/22/18 19:46 100 11/22/18 19:45 100 11/22/18 19:42 100 11/22/18 19:41 147/92 H 100 11/22/18 17:49 100 11/22/18 17:33 155/88 H 100 11/22/18 16:53 139/76 99 11/22/18 15:46 133/81 100 11/22/18 15:23 100 Notes Mental Status: alert / awake / arousable Patient Amnestic to Procedure: Yes Nausea / Vomiting: adequately controlled Pain: adequately controlled Airway Patency, RR, SpO2: stable & adequate BP & HR: stable & adequate Hydration State: stable & adequate Anesthetic Complications: no major complications apparent and Pt Satisfied with anesthetic care
--- NOTE | 2018-11-26 16:44 | Discharge Summary ---
PRIMARY DISCHARGE DIAGNOSIS: Incarcerated right inguinal hernia. SECONDARY DISCHARGE DIAGNOSES: 1. Chronic kidney disease stage II. 2. Alcoholic cirrhosis. 3. Hypertension. 4. PTSD. 5. Recent right hip dislocation. 6. Infected left knee replacement. PROCEDURE PERFORMED: Open right inguinal hernia repair with mesh and excision of cord lipoma. HOSPITAL COURSE: The patient is a 58-year-old male with recent admissions for infected left knee and more recently dislocated right hip. He had recently returned home from [place]. He began having increasing pain in his right groin and was no longer able to reduce the hernia. He was seen in the Emergency Department and found to have incarcerated inguinal hernia, was taken to the operating room that evening for open repair. The procedure was well tolerated. He was transferred to the surgical floor for overnight admission. On postoperative day 1, he was tolerating diet and oral analgesics. His abdomen was soft. Incision was clean and dry. He was stable for discharge home. DISCHARGE INSTRUCTIONS: Discharge home. Follow up with Dr. Cee in 1 week. DISCHARGE MEDICATIONS: Percocet 1-2 tablets every 4 hours as needed. Resume home medications: Norvasc 10 mg daily, metoprolol 12.5 mg b.i.d., Protonix 40 mg daily.
== END 2018-11-23 11:23 | disposition home or self-care (01) | DRG 352 ==
LOC: ED 15:01 → OR 17:49 → 3N 20:38 → 3W 21:15

== ENCOUNTER 2021-07-15 17:44 | Observation (INO) ==
--- NOTE | 2021-07-15 19:48 | XRay Report ---
XR knee LT 3V CLINICAL HISTORY: Severe left knee pain. Extremity trauma. COMPARISON: Left knee radiographs February 04, 2021. FINDINGS: Left knee spacer is noted. There is a probable large left knee joint effusion. No acute fr acture is identified. Note is made of lucency adjacent to the tibial and femoral components of the sp acer with sclerotic margins. Adjacent bone fragments are present. There is apparent mild superior dis placement of the femoral spacer shown on lateral projection. In addition, the spacers may be fragment ed. Progressive bone loss of the patella is noted with lateral subluxation. Alignment is similar to p rior exam. Left knee soft tissue swelling is noted. IMPRESSION: 1. Lucency/bone loss adjacent to the tibial and femoral components of the left knee spacer. This favo rs loosening. However, an infectious process could appear similar. Apparent mild superior displacemen t of the femoral spacer, as described above. In addition, suspected fragmentation of the spacer. 2. Large left knee joint effusion. 3. Left knee soft tissue swelling. ACT 112: Negative or not required by law. Electronically signed by: Ian Elder M.D. 07/15/2021 7:47 PM
[2021-07-15] MEDS ORDERED: MoRPHine SULFATE 10 MG/ML CARP/VIAL IV STA (20:32)
[2021-07-15] MEDS ORDERED: diphenhydrAMINE 50 MG/ML VIAL IV STA ×2 (20:32→22:42)
[2021-07-15] MEDS ORDERED: MoRPHine SULFATE 4 MG/ML 1 ML CARP\\VIAL ONE (21:02)
[2021-07-15 21:09] LABS: Basophils # (auto) 0.03 K/uL (0-0.2); Basophils % (auto) 0.4 %; Eosinophils # (auto) 0.12 K/uL (0-0.5); Eosinophils % (auto) 1.5 %; Hematocrit (blood only) 40.9 % (42-52); Hemoglobin 13.9 g/dL (14.0-18.0); Immature Granulocytes # (auto) 0.01 K/uL (0.00-0.02); Immature Granulocytes % (auto) 0.1 %; Lymphocytes # (auto) 3.46 K/uL (1.2-3.4); Lymphocytes % (auto) 43.1 %; Mean Corpuscular Hemoglobin 29.6 pg (25-34); Mean Platelet Volume 8.5 fL (7.4-10.4); Monocytes # (auto) 0.38 K/uL (0.11-0.59); Monocytes % (auto) 4.7 %; Neutrophils # (auto) 4.03 K/uL (1.4-6.5); Neutrophils % (auto) 50.2 %; Platelet Count 330 K/uL (130-400); RDW Coefficient of Variation 14.9 % (11.5-14.5); RDW Standard Deviation 48.1 fL (36.4-46.3); White Blood Count 8.03 K/uL (4.8-10.8)
[2021-07-15 21:35] LABS: Albumin Level 3.9 gm/dl (3.4-5.0); Calcium 9.5 mg/dl (8.5-10.1); Creatinine Clr Calc Pharmacy 91.4 ml/min; Est GFR (African American) 85.7 ml/min; Est GFR (Non-African American) 73.9 ml/min
[2021-07-15 21:38] LABS: Albumin Globulin Ratio 0.8 (0.9-2); Bilirubin,Total 0.5 mg/dl (0.2-1); Globulin 4.9 gm/dl (2.5-4.0); Total Protein 8.9 gm/dl (6.4-8.2)
--- NOTE | 2021-07-15 22:05 | Ultrasound Report ---
ULTRASOUND LEFT LOWER EXTREMITY VENOUS CLINICAL HISTORY: Left lower extremity edema. COMPARISON STUDY: Bilateral lower extremity venous ultrasound dated 06/13/2018. TECHNIQUE: Real-time, grayscale, and color Doppler sonography of the deep veins of the left lower ext remity was performed from the inguinal crease to the calf. Compression and augmentation were utilized . FINDINGS: There is no sonographic evidence of deep venous thrombosis identified in the left lower ext remity. The common femoral, superficial femoral, and popliteal veins are patent and normally compress ible. The greater saphenous vein and the profunda femoris vein at the junction with the common femora l vein are clear. The visualized calf veins are patent. IMPRESSION: There is no sonographic evidence of deep venous thrombosis identified in the left lower e xtremity. ACT 112: Negative or not required by law. Electronically signed by: Juan Panda M.D. 07/15/2021 10:03 PM
[2021-07-15] MEDS ORDERED: HYDROmorphone INJ 1 MG/ML SYRINGE IV STA (22:42)
--- NOTE | 2021-07-15 22:42 | Emergency Department Note ---
ED Visit Note The patient was seen and examined with Bryan Kaiser PA-C. I agree with the history, physical and findings. Please see the note for disposition and details. Discussed with Dr. Ochoa of orthopedics. He did evaluate the patient in the ER. His ultrasound and blood work was rather unremarkable. His x-ray imaging of his knee reveals significant issues with the hardware and surrounding bone. .
--- NOTE | 2021-07-15 23:22 | Emergency Department Note ---
History of Present Illness General Chief complaint: Knee Injury/Pain Stated complaint: KNEE PAIN Time Seen by Provider: 07/15/21 19:14 History of Present Illness Maximum Pain Intensity: 3 61-year-old male who presents to the emergency department with complaint of severe left knee pain, inability to move the knee or ambulate because of pain. The patient reports a history of left knee replacement by [facility] (Dr. Bourgeois) in 2009. The patient eventually developed an infection in the left knee in 2016, and was a patient at [facility] where the hardware was removed, and the patient had a joint spacer placement. Since that time, the patient has not had any consistent orthopedic follow-up. The patient was recently seen by [facility] who recommended that he go to [facility] for further evaluation by an exhibition specialist. The patient missed his appointment because the water pump on his vehicle broke. He reports that he does not have another appointment with them until December 2021. The patient reports that he lost his balance and fell yesterday, but did not fall on the knee. He denies any other injuries from his fall. The patient reports that he can no longer tolerate the pain, rating his discomfort a 10 out of 10, and is requesting Dilaudid and Benadryl, as pain medications make him itchy. Home Medications Medication Instructions Recorded Confirmed Type quetiapine 100 mg tablet 100 mg PO BID #180 tab 04/04/21 07/15/21 Rx aspirin 81 mg chewable tablet 81 mg PO DAILY 07/15/21 07/15/21 History Allergies Allergy/AdvReac Type Severity Reaction Status Date / Time ALL PAIN MEDICATIONS AdvReac Intermediate ITCHING Uncoded 07/15/21 22:55 NON STOP--PRE RX WITH BENADRYL, OK THEN. 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 Presently with antibiotic spacer in place Family History Other Diabetes Heart disease Social History Smoking Status: Current every day smoker Tobacco Type: Cigarettes Hx Alcohol Use: No Hx Substance Use: Yes Preferred Language: Japanese Communication Ability: Effective Visual Impairment: No Limitations Club Lounge Attendant Required: No Beliefs That Will Affect Care: None marital status: Current Living Situation: Spouse Feels Safe at Home: Yes Assistive Devices: Cane Review of Systems 10 system review was performed and was negative except for pertinent positives and negatives as indicated in history of present illness Physical Exam Vital Signs Vital Signs - 24 hr 07/15/21 18:02 07/15/21 19:34 07/15/21 21:08 Temperature 36.7 C Temperature Source Temporal Artery Scan Pulse Rate 69 Pulse Rate [Right Finger] 72 79 Respiratory Rate 20 20 20 Respiratory Effort / Characteristics Non-Labored Spontaneous Respiratory Depth Normal Respiratory Pattern Regular Blood Pressure 163/104 H Blood Pressure [Left Arm] 168/98 H 162/100 H Blood Pressure Mean 123 Blood Pressure Mean [Left Arm] 121 120 Pulse Oximetry 97 98 100 Oxygen Delivery Method Room Air Room Air Room Air Sepsis Recent Fever Within 48 Hours No Sepsis New/Unexplained Change in Mental Status No Sepsis Action Taken by Nursing No Action Required 07/15/21 22:08 07/15/21 22:58 Temperature Temperature Source Pulse Rate Pulse Rate [Right Finger] 78 78 Respiratory Rate 20 20 Respiratory Effort / Characteristics Respiratory Depth Respiratory Pattern Blood Pressure Blood Pressure [Left Arm] 158/98 H 166/98 H Blood Pressure Mean Blood Pressure Mean [Left Arm] 118 120 Pulse Oximetry 96 95 Oxygen Delivery Method Room Air Room Air Sepsis Recent Fever Within 48 Hours Sepsis New/Unexplained Change in Mental Status Sepsis Action Taken by Nursing CONSTITUTIONAL: Healthy and well nourished. Alert and oriented X 3. Patient appears in moderate severe discomfort, minimizing range of motion of his left knee. HEENT: Normocephalic, atraumatic. No scleral icterus, subconjunctival hemorrhage, raccoon's eyes or bethea sign. NECK: Full active range of motion without discomfort. RESPIRATORY: Clear to auscultation bilaterally with no wheezing, crackles, rhonchi or stridor. CARDIOVASCULAR: Regular rate and rhythm with no murmurs, rubs or gallops. GASTROINTESTINAL: Bowel sounds present in all quadrants. Soft and nontender to palpation. MUSCULOSKELETAL: Examination of the left knee shows notable bony landmark defo rmities that the patient reports is chronic. He does feel that the knee is much more swollen than usual, with joint effusion noted on palpation. The knee is not warm to palpation, nor is there any overriding erythema. Patient refuses range of motion of the knee. Pedal pulses are intact. INTEGUMENTARY: No rash or other significant dermatologic conditions noted. HEMATOLOGIC: No ecchymosis or petechiae. PSYCHIATRIC: Positive affect. NEUROLOGIC: Left lower extremity is sensory intact. Course Course Patient history and physical exam were performed. Nurses notes were reviewed. Vital signs were reviewed, showing an initial blood pressure of 163/104. X-rays of the left knee were ordered prior to my examination, and ordered per nursing protocol. X-rays of the left knee shows a cement spacer that is displaced from the proximal tibia, with fragmentation of the spacer itself. No other surrounding bony fractures are appreciated. The case was then further discussed with Dr. Simons, ED attending physician, as well as Dr. Ochoa, orthopedic surgeon on-call. Dr. Ochoa has requested further lab work until he can evaluate the patient as he was scrubbing in for an orthopedic case. IV access was established, and labs were drawn. The patient was administered IV morphine and Benadryl. Review of labs shows a normal white count without left shift or bandemia. CMP was also grossly normal. Sed rate is elevated at 63, with a normal CRP. Venous ultrasound of the left lower extremity was also performed and did not show evidence for DVT. Dr. Ochoa did come to the emergency department and evaluated the patient. Given the patient's inability to ambulate, and with his persistent pain, he is requesting hospitalist admission, and he would talk directly with the attending orthopedic surgeon at [facility] for transfer. The case was then also discussed with the [facility] hospitalist (Dr. Loja). The patient did request something additional for pain, reporting that the morphine did not provide any relief. He was then administered IV Dilaudid and additional Benadryl at his request. Please see Dr. Loja's and Dr. Ochoa's dictations for further treatment and final disposition. Administered Medications Discontinued Medications Diphenhydramine HCl (Diphenhydramine 50 Mg/Ml Vial) 25 mg IV NOW STA Stop: 07/15/21 20:33 Last Admin: 07/15/21 21:04 Dose: 25 mg Documented by: [id number] Diphenhydramine HCl (Diphenhydramine 50 Mg/Ml Vial) 25 mg IV NOW STA Stop: 07/15/21 22:43 Last Admin: 07/15/21 22:54 Dose: 25 mg Documented by: [id number] Diphenhydramine HCl (Diphenhydramine Capsule 25 Mg Cap) 25 mg PO NOW STA Stop: 07/16/21 00:25 Last Admin: 07/16/21 00:35 Dose: 25 mg Documented by: [id number] Hydromorphone HCl (Hydromorphone Inj 1 Mg/Ml Syringe) 1 mg IV NOW STA Stop: 07/15/21 22:43 Last Admin: 07/15/21 22:55 Dose: 1 mg Documented by: [id number] Morphine Sulfate (Morphine Sulfate 10 Mg/Ml Carp/Vial) 8 mg IV NOW STA Stop: 07/15/21 20:33 Last Admin: 07/15/21 21:06 Dose: Not Given Documented by: [id number] Morphine Sulfate (Morphine Sulfate 4 Mg/Ml 1 Ml Carp\Vial) Confirm Administered Dose 8 mg .ROUTE .STK-MED ONE Stop: 07/15/21 21:03 Last Admin: 07/15/21 21:04 Dose: 8 mg Documented by: [id number] Medical Decision Making Medical Records Attestation: I reviewed the patient's medical records. Home Medications Current Medication List: was personally reviewed by me Laboratory Data Attestation: I reviewed the patient's lab results. Result diagrams: 07/15/21 21:00 07/15/21 21:00 Lab Results 07/15/21 07/15/21 07/15/21 Range/Units 21:00 21:00 21:00 WBC 8.03 (4.8-10.8) K/uL RBC 4.70 (4.7-6.1) M/uL Hgb 13.9 L (14.0-18.0) g/dL Hct 40.9 L (42-52) % MCV 87.0 (80-100) fL MCH 29.6 (25-34) pg MCHC 34.0 (32-36) g/dL RDW Std Deviation 48.1 H (36.4-46.3) fL RDW Coeff of Leatha 14.9 H (11.5-14.5) % Plt Count 330 (130-400) K/uL MPV 8.5 (7.4-10.4) fL Immature Gran % (Auto) 0.1 % Neut % (Auto) 50.2 % Lymph % (Auto) 43.1 % [place] % (Auto) 4.7 % Eos % (Auto) 1.5 % Baso % (Auto) 0.4 % Neut # (Auto) 4.03 (1.4-6.5) K/uL Lymph # (Auto) 3.46 H (1.2-3.4) K/uL [place] # (Auto) 0.38 (0.11-0.59) K/uL Eos # (Auto) 0.12 (0-0.5) K/uL Baso # (Auto) 0.03 (0-0.2) K/uL Immature Gran # (Auto) 0.01 (0.00-0.02) K/uL ESR 63 H (0-20) mm/hr Sodium 138 (136-145) mmol/L Potassium 4.0 (3.5-5.1) mmol/L Chloride 108 H (98-107) mmol/L Carbon Dioxide 25 (21-32) mmol/L Anion Gap 5.0 (3-11) BUN 19 H (7-18) mg/dl Creatinine 1.09 (0.6-1.4) mg/dl Est Cr Clr Drug Dosing 91.4 ml/min Est GFR ( Amer) 85.7 ml/min Est GFR (Non-Af Amer) 73.9 ml/min BUN/Creatinine Ratio 17.0 (10-20) Glucose 88 (70-99) mg/dl Calcium 9.5 (8.5-10.1) mg/dl Total Bilirubin 0.5 (0.2-1) mg/dl AST 21 (15-37) U/L ALT 18 (12-78) U/L Alkaline Phosphatase 131 H (45-117) U/L C-Reactive Protein (0-0.29) mg/dl Total Protein 8.9 H (6.4-8.2) gm/dl Albumin 3.9 (3.4-5.0) gm/dl Globulin 4.9 H (2.5-4.0) gm/dl Albumin/Globulin Ratio 0.8 L (0.9-2) COVID-19 Eval Order SARS-CoV-2 (PCR) (Negative) 07/15/21 07/15/21 07/15/21 Range/Units 21:00 23:00 23:00 WBC (4.8-10.8) K/uL RBC (4.7-6.1) M/uL Hgb (14.0-18.0) g/dL Hct (42-52) % MCV (80-100) fL MCH (25-34) pg MCHC (32-36) g/dL RDW Std Deviation (36.4-46.3) fL RDW Coeff of Leatha (11.5-14.5) % Plt Count (130-400) K/uL MPV (7.4-10.4) fL Immature Gran % (Auto) % Neut % (Auto) % Lymph % (Auto) % [place] % (Auto) % Eos % (Auto) % Baso % (Auto) % Neut # (Auto) (1.4-6.5) K/uL Lymph # (Auto) (1.2-3.4) K/uL [place] # (Auto) (0.11-0.59) K/uL Eos # (Auto) (0-0.5) K/uL Baso # (Auto) (0-0.2) K/uL Immature Gran # (Auto) (0.00-0.02) K/uL ESR (0-20) mm/hr Sodium (136-145) mmol/L Potassium (3.5-5.1) mmol/L Chloride (98-107) mmol/L Carbon Dioxide (21-32) mmol/L Anion Gap (3-11) BUN (7-18) mg/dl Creatinine (0.6-1.4) mg/dl Est Cr Clr Drug Dosing ml/min Est GFR ( Amer) ml/min Est GFR (Non-Af Amer) ml/min BUN/Creatinine Ratio (10-20) Glucose (70-99) mg/dl Calcium (8.5-10.1) mg/dl Total Bilirubin (0.2-1) mg/dl AST (15-37) U/L ALT (12-78) U/L Alkaline Phosphatase (45-117) U/L C-Reactive Protein < 0.29 (0-0.29) mg/dl Total Protein (6.4-8.2) gm/dl Albumin (3.4-5.0) gm/dl Globulin (2.5-4.0) gm/dl Albumin/Globulin Ratio (0.9-2) COVID-19 Eval Order Covid19 at [facility] SARS-CoV-2 (PCR) NEGATIVE (Negative) Imaging Data Attestation: I personally reviewed and interpreted this imaging study as follows: My Impression: My interpretation of x-rays of the left knee shows significant degenerative bony and cement changes from the patient's knee spacer. A large joint effusion is also noted. Radiologist report was also reviewed. Venous ultrasound of the left lower extremity was also performed and did not show evidence for DVT. Radiologist's Impression: Knee X-Ray 07/15/21 18:06 XR knee LT 3V CLINICAL HISTORY: Severe left knee pain. Extremity trauma. COMPARISON: Left knee radiographs February 04, 2021. FINDINGS: Left knee spacer is noted. There is a probable large left knee joint effusion. No acute fracture is identified. Note is made of lucency adjacent to the tibial and femoral components of the spacer with sclerotic margins. Adjacent bone fragments are present. There is apparent mild superior displacement of the femoral spacer shown on lateral projection. In addition, the spacers may be fragmented. Progressive bone loss of the patella is noted with lateral subluxation. Alignment is similar to prior exam. Left knee soft tissue swelling is noted. IMPRESSION: 1. Lucency/bone loss adjacent to the tibial and femoral components of the left knee spacer. This favors loosening. However, an infectious process could appear similar. Apparent mild superior displacement of the femoral spacer, as described above. In addition, suspected fragmentation of the spacer. 2. Large left knee joint effusion. 3. Left knee soft tissue swelling. ACT 112: Negative or not required by law. Electronically signed by: Ian Elder M.D. 07/15/2021 7:47 PM Venous Doppler Study 07/15/21 20:52 ULTRASOUND LEFT LOWER EXTREMITY VENOUS CLINICAL HISTORY: Left lower extremity edema. COMPARISON STUDY: Bilateral lower extremity venous ultrasound dated 06/13/2018. TECHNIQUE: Real-time, grayscale, and color Doppler sonography of the deep veins of the left lower extremity was performed from the inguinal crease to the calf. Compression and augmentation were utilized. FINDINGS: There is no sonographic evidence of deep venous thrombosis identified in the left lower extremity. The common femoral, superficial femoral, and popliteal veins are patent and normally compressible. The greater saphenous vein and the profunda femoris vein at the junction with the common femoral vein are clear. The visualized calf veins are patent. IMPRESSION: There is no sonographic evidence of deep venous thrombosis identified in the left lower extremity. ACT 112: Negative or not required by law. Electronically signed by: Juan Panda M.D. 07/15/2021 10:03 PM Prescription Drug Monitoring [place] Drug Monitoring Program reviewed and no issues identified Blood Pressure Blood Pressure Findings: Elevated blood pressure Blood Pressure Disposition: elevated BP felt to be situational MDM Narrative Patient presents the emergency department with complaint of uncontrollable pain and inability to ambulate. The patient has a significant history of primary total knee arthroplasty that eventually developed a joint infection, and required hardware removal and a cement spacer placement. Although recurrent infection is a concern, CRP is normal, and the patient also does not have any increased warmth to palpation or erythema to suggest septic joint. The patient was evaluated by Dr. Ochoa, orthopedic surgeon, who does feel that the patient warrants transfer to a tertiary care center for joint replacement. Impression & Plan Chronic pain of left knee, Inability to ambulate due to left knee, History of knee replacement procedure of left knee Discharge Plan Visit Data Chief Complaint: Knee Injury/Pain Stated Complaint: KNEE PAIN ED Provider: Mikey Simons ED Midlevel Provider: Bryan Kaiser Discharge Problem: Chronic pain of left knee, Inability to ambulate due to left knee, History of knee replacement procedure of left knee Forms Stand Alone Forms: My [employer] Prescriptions Prescriptions: No Action quetiapine 100 mg tablet 100 mg PO BID Qty: 180 RF: 3 aspirin 81 mg Tablet,Chewable 81 mg PO DAILY RF: 0 Referrals Referrals: Meli Vásquez MD [Primary Care Provider] -
[2021-07-16] MEDS ORDERED: diphenhydrAMINE Capsule 25 MG CAP PO STA (00:24)
[2021-07-16] MEDS ORDERED: ONDANSETRON INJ 2 MG/ML 2 ML VIAL IV PRN (00:32)
--- NOTE | 2021-07-16 00:50 | History & Physical Report ---
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 He states that in 2009 he had a knee replacement by [facility] (Dr. Bourgeois). Unfortunately the patient developed an infection in his left knee in 2017 and he presented to [facility] where the hardware was removed and a joint spacer was placed. 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 Ortho is aware of the patient, recommending transfer to [place] for total knee replacement. Patient will be admitted for management of his pain and symptoms related to his knee. Presently he is doing well. -Admit to [facility] -Orthopedics consulted -Dopplers negative for DVT -Patient reporting intractable pain, physical exam is consistent -Hydromorphone 1 mg IV every 3 hours as needed -Patient reporting history of opioid-induced pruritus -> diphenhydramine 25 mg p.o. every 4 hours #Chronic pain Secondary to the above #Narcotic and alcohol abuse/dependence Patient with a history of drug abuse and dependence, reports he has not drank alcohol in greater than 3 years, and is not currently using drugs. -Judicious use of narcotics -Monitor for symptoms of dependence FENa: Regular Code Status: Full DVT PPX: Lovenox PT/OT: Not indicated Case Management: Not indicated Dispo: [facility], ultimately will need transfer to [place] for total knee replacement Bryan Loja MD PGY 3, FCM This chart was completed utilizing JustSpotted voice recognition software. Grammatical errors, random word insertions, pronoun errors, and in complete sentences are an occasional consequence of the system. Any questions or concerns about the content, text, or information contained within the body of this dictation should be addressed directly to the physician for clarification. (2) Chronic pain: (3) Narcotic dependence: (4) Alcohol abuse: History of Present Illness Primary Care Provider: Meli Vásquez MD 61-year-old male with a past medical history of chronic pain, alcohol and drug abuse presents for evaluation of left knee pain. He states that in 2009 he had a knee replacement by [facility] (Dr. Bourgeois). Unfortunately the patient developed an infection in his left knee in 2017 and he presented to [facility] where the hardware was removed and a joint spacer was placed. He was instructed to present for follow-up and have the joint spacer removed however he neglected this. He has been evaluated by orthopedics several times since that procedure, most recently he was recommended to follow-up with [facility] unfortunately he missed his appointment as the water pump in his vehicle broke. He reports he does not have another appointment until December 2021, and given the unbearable nature of his pain presented for further evaluation and management. Upon presentation to the emergency department Routine labs were obtained CBC was notable for hemoglobin of 13.9, ESR of 63, CMP was notable for an AP of 131 CRP 0.29 COVID-19 testing negative. Knee x-ray demonstrated lucency and bone loss adjacent to the tibial and femoral components of the left knee spacer favoring loosening, mild superior displacement of the femoral spacer and suspected fragmentation of the spacer. Venous Doppler study was obtained and negative for DVT. Orthopedic surgery was alerted and evaluated the patient in the emergency department. They indicated that the patient would needed to be transferred to [place] and would require a total knee replacement. They recommended the patient be admitted in the interim. The primary team was consulted for admission. Upon evaluation of the patient he was endorsing significant itching which she states occurs when he takes opioids. He states in the past Dilaudid causes the least amount of itching and states that he always takes Benadryl when he receives opiates. Otherwise the patient reported no recent history of fevers or chills, nausea or vomiting, chest pressure, chest pain, shortness of breath. He will be admitted for pain control and management of his knee Allergies Allergy/AdvReac Type Severity Reaction Status Date / Time ALL PAIN MEDICATIONS AdvReac Intermediate ITCHING Uncoded 07/15/21 22:55 NON STOP--PRE RX WITH BENADRYL, OK THEN. 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 Presently with antibiotic spacer in place Family History Other Diabetes Heart disease Social History Smoking Status: Current every day smoker Tobacco Type: Cigarettes Do You Dip or Chew Tobacco: No; Hx Alcohol Use: No Hx Substance Use: Yes Preferred Language: Albanian Communication Ability: Effective Visual Impairment: No Limitations Upholstery Restorer Required: No Beliefs That Will Affect Care: None marital status: Current Living Situation: Spouse Other Information That Helps Us Care for You: No Feels Safe at Home: Yes Safety Concerns: Feels Safe At This Time Assistive Devices: Cane Physical Exam Physical Exam: General: No acute distress, very itchy HEENT: Normocephalic atraumatic Neck: No significant lymphadenopathy, trachea midline, normal to visual inspection Cardiac: Regular rate and rhythm, normal S1, normal S2, I did not appreciated any significant murmurs rubs or gallops, I did not appreciate any significant pedal edema, No calf tenderness, capillary refill is less than 3 seconds Respiratory: Clear to auscultation bilaterally with symmetrical chest rise, I did not appreciate any significant wheezes, rales, rhonchi, no increased work of breathing GI: Normal bowel sounds, soft, nontender in all 4 quadrants, nondistended MSK: No sensory or motor changes, moves all extremities without issue, extremities are warm and well-perfused Left knee: Very edematous, able to appreciate loose spacer on palpation, some pain on palpation, not warm to the touch, no evidence of pus Skin: [place], clean, dry, intact. Neuro: Alert and oriented x4 Results & Data Results & Data ([place]) Vital Signs (Past 12 Hours) Vital Signs Temp Pulse Pulse Resp BP BP Pulse Ox 07/15/21 22:58 78 20 166/98 H 95 07/15/21 22:08 78 20 158/98 H 96 07/15/21 21:08 79 20 162/100 H 100 07/15/21 19:34 72 20 168/98 H 98 07/15/21 18:02 36.7 C 69 20 163/104 H 97 Laboratory Results 07/15/21 07/15/21 07/15/21 Range/Units 23:00 23:00 21:00 WBC (4.8-10.8) K/uL RBC (4.7-6.1) M/uL Hgb (14.0-18.0) g/dL Hct (42-52) % MCV (80-100) fL MCH (25-34) pg MCHC (32-36) g/dL RDW Std Deviation (36.4-46.3) fL RDW Coeff of Leatha (11.5-14.5) % Plt Count (130-400) K/uL MPV (7.4-10.4) fL Immature Gran % (Auto) % Neut % (Auto) % Lymph % (Auto) % [place] % (Auto) % Eos % (Auto) % Baso % (Auto) % Neut # (Auto) (1.4-6.5) K/uL Lymph # (Auto) (1.2-3.4) K/uL [place] # (Auto) (0.11-0.59) K/uL Eos # (Auto) (0-0.5) K/uL Baso # (Auto) (0-0.2) K/uL Immature Gran # (Auto) (0.00-0.02) K/uL ESR (0-20) mm/hr Sodium (136-145) mmol/L Potassium (3.5-5.1) mmol/L Chloride (98-107) mmol/L Carbon Dioxide (21-32) mmol/L Anion Gap (3-11) BUN (7-18) mg/dl Creatinine (0.6-1.4) mg/dl Est Cr Clr Drug Dosing ml/min Est GFR ( Amer) ml/min Est GFR (Non-Af Amer) ml/min BUN/Creatinine Ratio (10-20) Glucose (70-99) mg/dl Calcium (8.5-10.1) mg/dl Total Bilirubin (0.2-1) mg/dl AST (15-37) U/L ALT (12-78) U/L Alkaline Phosphatase (45-117) U/L C-Reactive Protein < 0.29 (0-0.29) mg/dl Total Protein (6.4-8.2) gm/dl Albumin (3.4-5.0) gm/dl Globulin (2.5-4.0) gm/dl Albumin/Globulin Ratio (0.9-2) COVID-19 Eval Order Covid19 at [facility] SARS-CoV-2 (PCR) NEGATIVE (Negative) 07/15/21 07/15/21 07/15/21 Range/Units 21:00 21:00 21:00 WBC 8.03 (4.8-10.8) K/uL RBC 4.70 (4.7-6.1) M/uL Hgb 13.9 L (14.0-18.0) g/dL Hct 40.9 L (42-52) % MCV 87.0 (80-100) fL MCH 29.6 (25-34) pg MCHC 34.0 (32-36) g/dL RDW Std Deviation 48.1 H (36.4-46.3) fL RDW Coeff of Leatha 14.9 H (11.5-14.5) % Plt Count 330 (130-400) K/uL MPV 8.5 (7.4-10.4) fL Immature Gran % (Auto) 0.1 % Neut % (Auto) 50.2 % Lymph % (Auto) 43.1 % [place] % (Auto) 4.7 % Eos % (Auto) 1.5 % Baso % (Auto) 0.4 % Neut # (Auto) 4.03 (1.4-6.5) K/uL Lymph # (Auto) 3.46 H (1.2-3.4) K/uL [place] # (Auto) 0.38 (0.11-0.59) K/uL Eos # (Auto) 0.12 (0-0.5) K/uL Baso # (Auto) 0.03 (0-0.2) K/uL Immature Gran # (Auto) 0.01 (0.00-0.02) K/uL ESR 63 H (0-20) mm/hr Sodium 138 (136-145) mmol/L Potassium 4.0 (3.5-5.1) mmol/L Chloride 108 H (98-107) mmol/L Carbon Dioxide 25 (21-32) mmol/L Anion Gap 5.0 (3-11) BUN 19 H (7-18) mg/dl Creatinine 1.09 (0.6-1.4) mg/dl Est Cr Clr Drug Dosing 91.4 ml/min Est GFR ( Amer) 85.7 ml/min Est GFR (Non-Af Amer) 73.9 ml/min BUN/Creatinine Ratio 17.0 (10-20) Glucose 88 (70-99) mg/dl Calcium 9.5 (8.5-10.1) mg/dl Total Bilirubin 0.5 (0.2-1) mg/dl AST 21 (15-37) U/L ALT 18 (12-78) U/L Alkaline Phosphatase 131 H (45-117) U/L C-Reactive Protein (0-0.29) mg/dl Total Protein 8.9 H (6.4-8.2) gm/dl Albumin 3.9 (3.4-5.0) gm/dl Globulin 4.9 H (2.5-4.0) gm/dl Albumin/Globulin Ratio 0.8 L (0.9-2) COVID-19 Eval Order SARS-CoV-2 (PCR) (Negative) Medications Administered Current Inpatient Medications Diphenhydramine HCl (Diphenhydramine Capsule 25 Mg Cap) 25 mg PO Q4 PRN PRN Reason: Itching Stop: 08/15/21 00:37 Enoxaparin Sodium (Enoxaparin Inj 40 Mg/0.4 Ml Syr) 40 mg SQ Q24H JERSON Stop: 08/15/21 00:44 Hydromorphone HCl (Hydromorphone Inj 1 Mg/Ml Syringe) 1 mg IV Q3H PRN PRN Reason: Pain Stop: 07/30/21 00:22 Lactated Ringer's (Lr) 1,000 mls @ 125 mls/hr IV .Q8H JERSON Stop: 08/15/21 00:44 Ondansetron HCl (Ondansetron Inj 2 Mg/Ml 2 Ml Vial) 4 mg IV Q6H PRN PRN Reason: Nausea Stop: 08/15/21 00:31 Polyethylene Glycol (Polyethylene (Miralax) 17 Gm Pack) 17 gm PO DAILY JERSON Stop: 08/15/21 08:59 Code Status & VTE Plan Code Status full VTE Prophylaxis Plan VTE Prophylaxis will be ordered: Yes Supervising Physician Co-Signing Physician Notes Patient seen and examined, chart reviewed, case discussed with Dr. Loja and I agree with his assessment and plan as above. Patient is a 61yo AA male with history of CKD, GERD, Anemia, prior drug abuse presenting with displacement of his antibiotic-impregnated cement spacer of his left knee. Patient in considerable discomfort Knee is deformed, swollen, tender to palpation Labs and images reviewed Assessment/Plan -Admission to medical -Pain control - would avoid use of IV Dilaudid + IV Benadryl due to synergistic effects. PO Benadryl should be sufficient -Orthopedic consultation appreciated. Patient is to be transferred to [place] when able for surgical repair -Remainder of plan as above Resident Activity Tracking Resident Involvement: Resident Care Provided Care Provided: Adult Hospital Medicine
[2021-07-16] MEDS: QUEtiapine FUMARATE 100 MG TABLET PO SCH ×3 (02:14→21:30)
[2021-07-16] MEDS: LACTATED RINGER'S 1,000 ML IV SCH ×2 (02:15→08:22)
[2021-07-16] MEDS: diphenhydrAMINE Capsule 25 MG CAP PO PRN ×3 (02:15→19:35)
[2021-07-16] MEDS: HYDROmorphone INJ 1 MG/ML SYRINGE IV PRN ×5 (02:16→19:27)
--- NOTE | 2021-07-16 06:23 | Billing Data ---
Date of Service July 16, 2021 Coding Level of Care Code INT OBSERVATION CARE 50M LVL 2
[2021-07-16] MEDS: ENOXAPARIN INJ 40 MG/0.4 ML SYR SQ SCH (06:29)
[2021-07-16 07:14] LABS: Basophils # (auto) 0.04 K/uL (0-0.2); Basophils % (auto) 0.7 %; Eosinophils # (auto) 0.13 K/uL (0-0.5); Eosinophils % (auto) 2.1 %; Hematocrit (blood only) 36.6 % (42-52); Hemoglobin 12.2 g/dL (14.0-18.0); Immature Granulocytes # (auto) 0.01 K/uL (0.00-0.02); Immature Granulocytes % (auto) 0.2 %; Lymphocytes # (auto) 2.44 K/uL (1.2-3.4); Lymphocytes % (auto) 39.9 %; Mean Corpuscular Hemoglobin 29.2 pg (25-34); Mean Corpuscular Hgb Conc 33.3 g/dL (32-36); Mean Corpuscular Volume 87.6 fL (80-100); Mean Platelet Volume 8.5 fL (7.4-10.4); Monocytes # (auto) 0.39 K/uL (0.11-0.59); Monocytes % (auto) 6.4 %; Neutrophils # (auto) 3.11 K/uL (1.4-6.5); Neutrophils % (auto) 50.7 %; Platelet Count 272 K/uL (130-400); RDW Coefficient of Variation 15.1 % (11.5-14.5); RDW Standard Deviation 48.3 fL (36.4-46.3); Red Blood Count 4.18 M/uL (4.7-6.1); White Blood Count 6.12 K/uL (4.8-10.8)
[2021-07-16 07:33] LABS: BUN Creatinine Ratio 18.1 (10-20); Creatinine Clr Calc Pharmacy 86.4 ml/min; Est GFR (African American) 81.1 ml/min; Potassium 3.9 mmol/L (3.5-5.1)
--- NOTE | 2021-07-16 08:05 | Hospitalist Progress Note ---
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 He states that in 2009 he had a knee replacement by [facility] (Dr. Bourgeois). Unfortunately the patient developed an infection in his left knee in 2017 and he presented to [facility] where the hardware was removed and a joint spacer was placed. 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 - Case discussed with [facility] [place] [place] and [facility] [place] [facility] [place] has patient on waitlist - [facility] [place] Hospitalist team expressed willingness to accept patient and will notify as soon as bed available - Have reached out to [facility] (spacer placed there in 2017) for possibility of transfer there -- awaiting further contact from their Ortho team -Hydromorphone 1 mg IV every 3 hours as needed for pain control -Patient reporting history of opioid-induced pruritus -> diphenhydramine 25 mg p.o. every 4 hours & cetirizine daily added Narcotic and alcohol abuse/dependence -Patient with a history of drug abuse and dependence, reports he has not drank alcohol in greater than 3 years, and is not currently using drugs. -UDS in 12/26 negative for opioids, positive for Marijuana -Judicious use of narcotics -Monitor for symptoms of dependence FENGI: Regular Code Status: Full DVT PPX: Lovenox Dispo: MedSurg, transfer pending as above (2) Chronic pain: (3) Narcotic dependence: (4) Alcohol abuse: Admission and Anticipated Discharge Date Admission Date: July 16, 2021 Supervising Physician Co-Signing Physician Notes I also saw the patient with the resident physician confirmed umanzor portions of the history and physical examination. I agree with the impression and plan as noted in the resident documentation. Patient was admitted earlier this morning by the night team. Review of outside records indicate a past medical history of hypertension, hyperlipidemia, chronic kidney disease, drug abuse, hypothyroidism, and status post open Khole-en-Y gastric bypass in 2008 complicated by an abdominal wall abscess requiring drainage and wound VAC placement. He was seen in our facility in December of this year for small bowel obstruction and transfer to [facility] for continued care. Upon our exam, the patient is sleeping. He apparently looks of falling asleep while trying to put peanut butter on his esau cracker. He does not appear to be in any significant pain upon awakening, although he does note that he is due for his Dilaudid. Exam 130/76, 75, 16, 36.6, 93% on room air Sleeping but awakens to voice. No acute distress appreciated. Left knee appears swollen, there is no erythema. Obvious deformity Data Hemoglobin 12.2, platelet count 272 Sodium 138, potassium 3.9, BUN 21, creatinine 1.14 Left knee x-ray shows lucency/bone loss adjacent to tibial and femoral components of left knee spacer, large left knee joint effusion, left knee soft tissue swelling. Ultrasound of left lower extremity shows no evidence of DVT. Assessment and plan Absence of left knee joint, suspected loosening of previously placed hardware Left knee pain with nonweightbearing status He was seen here by orthopedics who recommended referral to tertiary care center for total knee replacement. Reached out to [facility] and [facility] in [place]; both will accept patient but no beds available. Original procedure was done in [place] ([facility]); could consider reaching out to them although transfer to [place] would be a greater distance than both [place] and [place] Subjective No acute events overnight. Patient does report significant discomfort and pain. He says he can feel the spacer is very unstable in his joint. He is open to transfer to any tertiary facility that might be able to take him. Denies fever, chills, n/v, abd pain, diarrhea, cough, SOB, CP, palp. Review of Systems Review of Systems: per HPI Physical Exam Physical Exam: General: WD/WN. No acute distress, very itchy Cardiac: RRR, -mgr, S1-S2 normal Respiratory: Clear to auscultation bilaterally with symmetrical chest rise. No wheezes, rales, rhonchi, or increased work of breathing GI: Normal bowel sounds, soft, nontender in all 4 quadrants, nondistended MSK: Left knee: Edematous, able to appreciate loose spacer on palpation, some pain on palpation, not warm to the touch, no open wounds or drainage. All other extremities have normal ROM, no swelling, no TTP. Pulses present in all 4 extremities Skin: Clean, dry, intact. Neuro: Alert and oriented x4 Results & Data Results & Data ([facility]) Vital Signs (Past 12 Hours) Vital Signs Temp Pulse Pulse Resp BP BP Pulse Ox 07/16/21 07:21 36.5 C 79 16 134/81 96 07/16/21 01:15 79 16 130/78 99 07/16/21 00:45 78 16 125/79 98 07/16/21 00:30 36.8 C 72 16 165/92 H 98 07/15/21 22:58 78 20 166/98 H 95 07/15/21 22:08 78 20 158/98 H 96 07/15/21 21:08 79 20 162/100 H 100 Resident Activity Tracking Resident Involvement: Resident Care Provided Care Provided: Adult [facility] Medicine
[2021-07-16] MEDS: ASPIRIN 81 MG ECTAB PO SCH (08:07)
[2021-07-16] MEDS: POLYETHYLENE (MIRALAX) 17 GM PACK PO SCH (08:07)
--- NOTE | 2021-07-16 09:08 | Orthopedic Consultation ---
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 Is to the point where he needs to have something done. We do not do major knee reconstructive procedures at this facility and he would likely be better treated at a tertiary care facility where they have infectious disease and other specialties on board. He is admitted mostly for pain control and hopefully placement to a tertiary care facility that can handle a revision of his left knee. Fortunately, it does not appear to be infected. I did talk to him about the different options which could include a revision to a standard knee prosthesis, possible reimplantation of a cement spacer, possible knee effusion, or possible above-knee amputation. He understands his options and would like to be transferred to a tertiary care facility to have this left knee addressed. I will work with the medicine team at getting that arranged today. He is currently on Dilaudid for pain control. He can be weightbearing as tolerated although is going to be difficult at this time. History of Present Illness Reason for Consultation: Left knee pain. Requesting Physician: . Attending Physician: Jeffery Platt DO Aiden is a 61-year-old male who has been dealing with a severe increase of left knee pain. He has a history of a left knee replacement done by Dr. Israel mendes several years ago. Unfortunately there was an infection. He then went to [facility] and had the implant removed and a cement spacer placed. He was ambulating fairly well with the cement spacer and never returned to have it exchanged for a traditional implant. His knee pain has been increasing over the past 4 years. Unfortunately it has gotten much worse over the past 2 weeks. He is now to the point where he is unable to go up and down stairs and he is unable to ambulate or put any weight on it. He came to the emergency room for evaluation and treatment of his left knee pain. Allergies Allergy/AdvReac Type Severity Reaction Status Date / Time ALL PAIN MEDICATIONS AdvReac Intermediate ITCHING Uncoded 07/15/21 22:55 NON STOP--PRE RX WITH BENADRYL, OK THEN. 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 Presently with antibiotic spacer in place Family History Other Diabetes Heart disease Social History Smoking Status: Current every day smoker Tobacco Type: Cigarettes Do You Dip or Chew Tobacco: No; Hx Alcohol Use: No Hx Substance Use: Yes Preferred Language: Tanzanian Communication Ability: Effective Visual Impairment: No Limitations Order Packer Or Packager Required: No Beliefs That Will Affect Care: None marital status: Current Living Situation: Spouse Other Information That Helps Us Care for You: No Feels Safe at Home: Yes Safety Concerns: Feels Safe At This Time Assistive Devices: Cane Review of Systems All systems reviewed & are unremarkable except as noted in HPI & below. Physical Exam On physical examination of the left knee, he sits with his knee flexed at about 45 degrees. I am unable to do any range of motion of his knee because of the pain. He has obvious deformity of the knee. He has no significant effusion. There is no signs of infection. His skin quality looks good. He is otherwise neurovascular intact.. Constitutional WD/WN, vitals as above Eyes PERRL, conjunctivae normal, anicteric sclerae ENMT external ear and nose normal, oropharynx normal Neck trachea midline, no thyromegaly Respiratory normal respiratory effort Cardiovascular RRR, no murmur, no edema Gastrointestinal (Abdomen) normal bowel sounds, soft, nontender, no hepatosplenomegaly Psychiatric A+Ox3, euthymic affect Results & Data Results & Data Laboratory Results He has a normal white blood cell count and a normal CRP. His sed rate is moderately elevated.. Diagnostic Findings X-rays of the left knee do show loosening of the cement spacer. There is destruction of the distal femur and the proximal tibia.. 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
[2021-07-16] MEDS: LORATADINE 10 MG TAB PO SCH (11:49)
[2021-07-17] MEDS: HYDROmorphone INJ 1 MG/ML SYRINGE IV PRN ×2 (03:14→06:22)
[2021-07-17] MEDS: diphenhydrAMINE Capsule 25 MG CAP PO PRN ×2 (03:14→07:40)
[2021-07-17] MEDS: ENOXAPARIN INJ 40 MG/0.4 ML SYR SQ SCH (06:20)
[2021-07-17] MEDS: QUEtiapine FUMARATE 100 MG TABLET PO SCH (07:29)
--- NOTE | 2021-07-17 07:29 | Discharge Summary ---
Date of Service July 17, 2021 Admission HPI Per Admitting Provider 61-year-old male with a past medical history of chronic pain, alcohol and drug abuse presents for evaluation of left knee pain. He states that in 2009 he had a knee replacement by [facility] (Dr. Bourgeois). Unfortunately the patient developed an infection in his left knee in 2016 and he presented to [facility] where the hardware was removed and a joint spacer was placed. He was instructed to present for follow-up and have the joint spacer removed however he neglected this. He has been evaluated by orthopedics several times since that procedure, most recently he was recommended to follow-up with [facility] unfortunately he missed his appointment as the water pump in his vehicle broke. He reports he does not have another appointment until December 2021, and given the unbearable nature of his pain presented for further evaluation and management. Upon presentation to the emergency department Routine labs were obtained CBC was notable for hemoglobin of 13.9, ESR of 63, CMP was notable for an AP of 131 CRP 0.29 COVID-19 testing negative. Knee x-ray demonstrated lucency and bone loss adjacent to the tibial and femoral components of the left knee spacer favoring loosening, mild superior displacement of the femoral spacer and suspected fragmentation of the spacer. Venous Doppler study was obtained and negative for DVT. Orthopedic surgery was alerted and evaluated the patient in the emergency department. They indicated that the patient would needed to be transferred to [place] and would require a total knee replacement. They recommended the [facility] ient be admitted in the interim. The primary team was consulted for admission. Upon evaluation of the patient he was endorsing significant itching which she states occurs when he takes opioids. He states in the past Dilaudid causes the least amount of itching and states that he always takes Benadryl when he receives opiates. Otherwise the patient reported no recent history of fevers or chills, nausea or vomiting, chest pressure, chest pain, shortness of breath. He will be admitted for pain control and management of his knee Admission Exam Per Admitting Provider General: No acute distress, very itchy HEENT: Normocephalic atraumatic Neck: No significant lymphadenopathy, trachea midline, normal to visual inspection Cardiac: Regular rate and rhythm, normal S1, normal S2, I did not appreciated any significant murmurs rubs or gallops, I did not appreciate any significant pedal edema, No calf tenderness, capillary refill is less than 3 seconds Respiratory: Clear to auscultation bilaterally with symmetrical chest rise, I did not appreciate any significant wheezes, rales, rhonchi, no increased work of breathing GI: Normal bowel sounds, soft, nontender in all 4 quadrants, nondistended MSK: No sensory or motor changes, moves all extremities without issue, extremities are warm and well-perfused Left knee: Very edematous, able to appreciate loose spacer on palpation, some pain on palpation, not warm to the touch, no evidence of pus Skin: [place], clean, dry, intact. 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 No wheezes, rales, rhonchi, or increased work of breathing GI: Normal bowel sounds, soft, nontender in all 4 quadrants, nondistended MSK: Left knee: Edematous, able to appreciate loose spacer on palpation, some pain on palpation, not warm to the touch, no open wounds or drainage. Skin: Clean, dry, intact. Neuro: Alert and oriented x4 Discharge Data Allergies Allergy/AdvReac Type Severity Reaction Status Date / Time ALL PAIN MEDICATIONS AdvReac Intermediate ITCHING Uncoded 07/15/21 22:55 NON STOP--PRE RX WITH BENADRYL, OK THEN. 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 He states that in 2009 he had a knee replacement by [facility] (Dr. Bourgeois). Unfortunately the patient developed an infection in his left knee in 2017 and he presented to [facility] where the hardware was removed and a joint spacer was placed. He requires transfer for tertiary facility for complicated knee surgery/correction. Will be transferred to [facility]. 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 - Case discussed with [facility] [place] [facility] - [facility] accepted patient: transfer on 07/17 at 0830 -Hydromorphone 1 mg IV every 3 hours as needed for pain control -Patient reporting history of opioid-induced pruritus -> diphenhydramine 25 mg p.o. every 4 hours & cetirizine daily added Narcotic and alcohol abuse/dependence -Patient with a history of drug abuse and dependence, reports he has not drank alcohol in greater than 3 years, and is not currently using drugs. -UDS in 12/26 negative for opioids, positive for Marijuana -Judicious use of narcotics -Monitor for symptoms of dependence Depression/Insomnia/Auditory Hallucinations - continue home Seroquel FENGI: Regular Code Status: Full DVT PPX: Lovenox Dispo: [facility] (2) Chronic pain: (3) Narcotic dependence: (4) Alcohol abuse: Total Time Total Time Spent Total Time Spent (In Minutes): 20 minutes Discharge Plan Discharge Items Patient Disposition: Transfer Acute Care Hospital Reason For Visit: KNEE REPLACEMENT Discharge Diagnosis: Displaced antibiotic impregnated cement spacer of left knee joint Activity: Per Instructions section Non-emergency contact: Surgeon Call non-emergency contact if: your symptoms worsen Follow-up/Referrals: Meli Vásquez MD [Primary Care Provider] - Diet: Regular Addtl Attending Provider Instructions: 61-year-old male with a past medical history of chronic pain, alcohol and drug abuse presents for evaluation of left knee pain. He states that in 2009 he had a knee replacement by [facility] (Dr. Bourgeois). Unfortunately the patient developed an infection in his left knee in 2017 and he presented to [facility] where the hardware was removed and a joint spacer was placed. 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 - Case discussed with [facility] -- to be admitted to medicine service with ortho consultation -Hydromorphone 1 mg IV every 3 hours as needed for pain control -Patient reporting history of opioid-induced pruritus -> diphenhydramine 25 mg p.o. every 4 hours & cetirizine daily added Narcotic and alcohol abuse/dependence -Patient with a history of drug abuse and dependence, reports he has not drank alcohol in greater than 3 years, and is not currently using drugs. -UDS in 12/26 negative for opioids, positive for Marijuana -Judicious use of narcotics -Monitor for symptoms of dependence FENGI: Regular Code Status: Full DVT PPX: Lovenox Dispo: MedSurg, transfer pending as above Pending Studies at Discharge: No Stand-Alone Forms: My [facility] Skilled Items Patient informed of condition?: Yes DNR: No Discharge Level of Care: Other Communicable Disease: No Discharge Prognosis: Stable Lines: Peripheral IV Urinary Catheter: No Medications and DC Order Prescriptions: New polyethylene glycol 3350 [Miralax] 17 gram Powder In Packet 17 g PO DAILY Qty: 7 RF: 0 diphenhydramine HCl [Benadryl] 25 mg Capsule 25 mg PO Q4 PRN (Reason: allergic reaction) Qty: 7 RF: 0 loratadine [Wal-itin] 10 mg Tablet 10 mg PO QAM Qty: 7 RF: 0 enoxaparin 40 mg/0.4 mL Syringe 40 mg subcut Q24H Qty: 1 RF: 0 hydromorphone 1 mg/mL Syringe 1 mg IV Q3H PRN (Reason: pain) 5 Days Qty: 5 RF: 0 ondansetron HCl (PF) 4 mg/2 mL Solution 4 mg IV Q6H PRN (Reason: nausea and vomiting) Qty: 4 RF: 0 Continued quetiapine 100 mg tablet 100 mg PO BID Qty: 180 RF: 3 aspirin 81 mg Tablet,Chewable 81 mg PO DAILY RF: 0 Discharge Orders: Discharge Order (Routine); Ordered 07/17/21 Ordered By: Precious Agustin Admission Data Admit Date/Time: 07/16/21 00:34 Attending Provider: Jeffery Platt Admit Provider: Bryan Loja I. Primary Care Provider: Meli Vásquez Other Providers: Estella Loja ; Gianfranco Ochoa Other Interventions: Discharge Summary Assessment (RN) Last Done: 07/17/21 05:55 Supervising Physician Co-Signing Physician Notes I also saw the patient independent of the resident physician confirmed umanzor portions of the history and physical examination. I agree with the impression and plan as noted in the resident documentation. Patient was admitted earlier this morning by the night team. Patient is again sleeping this morning but awakens to voice. Transport has been arranged for earlier this morning to [facility] in [place] for definitive caretotal knee replacement for which orthopedics here suggest referral to tertiary care center. Exam 112/69, 70, 16, 36.8, 94% on room air Sleeping but awakens to voice. No acute distress appreciated. Left knee swollen, there is no erythema. Obvious deformity Data No new data available at time of discharge Review of yesterday's imaging Left knee x-ray shows lucency/bone loss adjacent to tibial and femoral components of left knee spacer, large left knee joint effusion, left knee soft tissue swelling. Ultrasound of left lower extremity shows no evidence of DVT. Assessment and plan Absence of left knee joint, suspected loosening of previously placed hardware Left knee pain with nonweightbearing status He was seen here by orthopedics who recommended referral to tertiary care center for total knee replacement. Patient scheduled for transfer to [facility] in [place] at 0830 hrs. this morning. Resident Activity Tracking Resident Involvement: Resident Care Provided Care Provided: Adult Hospital Medicine
[2021-07-17] MEDS: POLYETHYLENE (MIRALAX) 17 GM PACK PO SCH (07:31)
[2021-07-17] MEDS: LORATADINE 10 MG TAB PO SCH (07:40)
[2021-07-17] MEDS: ASPIRIN 81 MG ECTAB PO SCH (07:53)
[2021-07-17] MEDS ORDERED: oxyCODONE HCL 10 MG TABCR (OxyCONTIN) PO ONE (08:53)
[2021-07-17] MEDS ORDERED: oxyCODONE HCL IR 5 MG TAB (IMMEDIATE RELEASE) PO STA (08:56)
[2021-07-17] MEDS ORDERED: oxyCODONE HCL 10 MG TABCR (OxyCONTIN) PO STA (08:57)
== END 2021-07-17 09:02 | disposition short-term general hospital (02) ==
LOC: ED 17:44 → 3N 17:44 → SUATTDRO 07-16 00:34 → 3N 07-16 01:15

== ENCOUNTER 2022-11-10 16:24 | Inpatient (IN) ==
--- NOTE | 2022-11-10 16:42 | ED Triage Note ---
Date of Service November 10, 2022 History of Present Illness This patient was briefly evaluated while in triage. An abbreviated physical exam was performed. This patient is a 62-year-old Male with past medical history of CVA, hypertension, liver cirrhosis, who presents to the ED for evaluation of chest pain for the past few weeks. PCP sent him in, told him he had a heart attack a couple weeks ago. Has abdominal wound from a cyst that was drained recently. Also complains of left knee pain, and having pain and swelling in left leg for a few weeks. Reports history of blood clot, but is not currently on any blood thinners. Also reports shortness of breath. Denies fevers or chills. Physical Exam CONSTITUTIONAL: No acute distress. Well appearing. RESPIRATORY: Bilateral scant expiratory wheezes. Nonlabored breathing. Equal expansion bilaterally. CARDIOVASCULAR: Regular rate and rhythm with no murmurs, rubs or gallops. Normal peripheral perfusion. Bilateral lower extremity peripheral edema. GASTROINTESTINAL: Surgical dressing noted on lower abdomen. MUSCULOSKELETAL: Left knee and calf tender to palpation. NEUROLOGIC: Alert and oriented X 4 with normal affect. Initial orders for labs and / or imaging were placed and patient was placed in the waiting area until a bed is available. Please see further documentation for the full ED course. MDM / Impression Impression Impression: Chest pain, Abdominal pain, Acute leg pain
[2022-11-10 17:10] LABS: Hematocrit (blood only) 41.8 % (42.0-52.0); Hemoglobin 13.8 g/dl (14.0-18.0); Mean Corpuscular Hemoglobin 29.4 pg (25.0-34.0); Mean Corpuscular Volume 88.9 fL (80.0-100.0); Mean Platelet Volume 9.1 fL (9.4-12.4); Platelet Count 281 K/uL (130-400); RDW Coefficient of Variation 15.1 % (11.5-14.5); RDW Standard Deviation 49.8 fL (36.4-46.3); White Blood Count 6.51 K/ul (4.8-10.8)
[2022-11-10 17:22] LABS: Partial Thromboplastin Time 28.2 Seconds (21.0-31.0); Prothrombin Time 10.6 Seconds (9.0-12.0)
[2022-11-10 17:29] LABS: Basophils # (auto) 0.04 K/uL (0-0.2); Basophils % (auto) 0.6 %; Eosinophils # (auto) 0.12 K/uL (0-0.50); Eosinophils % (auto) 1.8 %; Immature Granulocytes # (auto) 0.01 K/uL (0.01-0.20); Immature Granulocytes % (auto) 0.2 %; Lymphocytes # (auto) 3.38 K/uL (1.2-3.4); Lymphocytes % (auto) 51.9 %; Monocytes # (auto) 0.24 K/uL (0.11-0.59); Monocytes % (auto) 3.7 %; Neutrophils # (auto) 2.72 K/uL (1.40-6.50); Neutrophils % (auto) 41.8 %
[2022-11-10 17:31] LABS: Albumin Level 4.2 gm/dl (3.4-5.0); Anion Gap 8 (3-11); Bilirubin,Total 0.5 mg/dl (0.2-1.0); Calcium 9.3 mg/dl (8.5-10.1); Carbon Dioxide 25 mmol/L (21-32); Chloride 110 mmol/L (98-107); Potassium 3.7 mmol/L (3.5-5.1); Sodium 143 mmol/L (136-145)
[2022-11-10 17:38] LABS: Alanine Aminotransferase 10 U/L (7-52); Albumin Globulin Ratio 1.3 (0.9-2); Alkaline Phosphatase 82 U/L (34-104); Aspartate Aminotransferase 15 U/L (13-39); BUN Creatinine Ratio 10.1 (10-20); Blood Urea Nitrogen 11 mg/dl (6-23); Est GFR (African American) 85.1 ml/min; Est GFR (Non-African American) 73.4 ml/min; Globulin 3.3 gm/dl (2.5-4.0); Glucose 105 mg/dl (70-99(Fasting)); Lipase 54 U/L (11-82); Total Protein 7.5 gm/dl (6.0-8.3)
[2022-11-10 17:40] LABS: Troponin I High Sensitivity 5.4 pg/ml (0-20)
--- NOTE | 2022-11-10 18:00 | XRay Report ---
XR chest 1V portable HISTORY: 62 years-old Male Chest pain, nonspecific acute chest pain COMPARISON: Chest radiograph 09/30/2018, CT abdomen and pelvis 07/31/2022. TECHNIQUE: AP view of the chest FINDINGS: Cardiac silhouette is mildly enlarged. No pneumothorax or large pleural effusion. Patchy right basila r airspace opacities. Degenerative changes of the shoulders and spine. IMPRESSION: Mild patchy right basilar opacities are suggestive of postinflammatory scarring with atel ectasis. A mild pneumonia considered less likely. ACT 112: Negative or not required by law. The above report was generated using voice recognition software. It may contain grammatical, syntax o r spelling errors. Electronically signed by: Edgard Klein M.D. 11/10/2022 5:58 PM
[2022-11-10] MEDS ORDERED: MoRPHine SULFATE 4 MG/ML 1 ML CARP\\VIAL IV STA ×2 (18:25→22:43)
--- NOTE | 2022-11-10 18:30 | Emergency Department Note ---
Impression & Plan Chest pain, Abdominal pain, Acute leg pain ED Provider Note NAME: RAMBO LANDEROS AGE: 62 SEX: M : 1960 ARRIVES VIA: Walk-In INFORMANT: Patient ED PROVIDER(S): Larry Armando DO CHIEF COMPLAINT: Chest pain and abdominal pain HPI: Patient is a 62-year-old male with a past medical history of CVA, alcohol abuse, drug abuse, abdominal surgical wound which is slowly healing for abdominal pain and chest pain. Chest pain is located just right of sternum and has been constant for the past 2 weeks. Has been gradually getting more short of breath over the same time. Admits to constant abdominal pain since the surgery. He has been putting an ointment on the wound has been gradually getting better. He admits to chronic left knee pain with multiple spacers and infections. He was seen by cardiology who wanted a cardiac work-up as well as a stress test and echo for possible vegetation. He was seen by his PCP today and referred in for the cardiology work-up. Does admit to worsening shortness of breath which has been present for some time as well as chest pain which comes and goes intermittently and been worsening over the past 3 weeks. PAST MEDICAL HISTORY:See Below PAST SURGICAL HISTORY:See Below FAMILY HISTORY:See Below SOCIAL HISTORY:See Below HOME MEDICATIONS:See Below ALLERGIES:See Below VITALS:See Below PHYSICAL EXAMINATION: GENERAL: Sitting up in bed, alert, well appearing, well nourished, no distress, non-toxic EYE EXAM: normal conjunctiva. PERRL and EOM's grossly intact. OROPHARYNX: no exudate, no erythema, lips, buccal mucosa, and tongue normal and mucous membranes are moist NECK: supple, no nuchal rigidity, no adenopathy, non-tender LUNGS: Clear to auscultation. Normal chest wall mechanics HEART: no murmurs, S1 normal and S2 normal ABDOMEN: abdomen soft, non-tender, normo-active bowel sounds, no masses, no rebound or guarding. UPPER EXTREMITIES: upper extremities are grossly normal. LOWER EXTREMITIES: Mild pitting edema in left lower extremity which is larger than right. Tenderness with range of motion of the left knee. Small mount of swelling. No erythema. NEURO EXAM: Normal sensorium, cranial nerves II-XII grossly intact, normal speech, no gross weakness of arms, no gross weakness of legs. MEDICAL DECISION MAKING: Patient is a 62-year-old male referred in by PCP for admission. IV was established blood work was obtained. Labs showed no significant leukocytosis or anemia. INR unremarkable. BMP with slightly elevated chloride. LFTs bilirubin was unremarkable. Troponin was negative. Lipase unremarkable. COVID-negative. External records were reviewed. CTA of the chest shows a questionable PE although doubtful. CT abdomen pelvis showed no acute pathology. Patient was updated at bedside. Patient was given morphine as well as fluids. He was updated at bedside. Discussed the hospitalist for further evaluation. Triage Nursing notes reviewed. Limited review of prior medical records performed Vital Signs: reviewed and remarkable for no significant abnormalities Differential diagnosis: Cardiac ischemia, aortic dissection, pulmonary embolism, pneumothorax, pneumonia, pericarditis, myocarditis, esophageal rupture, GERD, cholecystitis, pancreatitis, musculoskeletal, as well as other pathologies. ER treatment provided: See below Diagnostics interpreted by me include EKG and cardiac monitoring as listed below: -Cardiac Monitoring: An order was placed for continuous cardiac monitoring. The monitor shows a rate of 60 with sinus rhythm. -ECG: Sinus rhythm rate of 62 Left axis No PVCs QTC 379 -Laboratory studies:Interpreted by me as stated above in MDM and shown below. Imaging studies: Xrays: As interpreted by me: Portable AP upright 1 view of the chest unremarkable for any focal infiltrate per my read CTs show: CT of the chest and abdomen pelvis as described above Consultation(s): Discussed with Dr. Aron Marcial for further evaluation and work-up Procedures:none Critical Care: None Past Med/Surg History Medical History Abdominal wall abscess Alcohol abuse Anemia Auditory hallucinations Borderline diabetes Cavitary lesion of lung Chronic GERD Chronic pain Chronic pain of left knee Cirrhosis, alcoholic CKD (chronic kidney disease) Depression Dislocation, hip, posterior Enterocutaneous fistula Heroin overdose History of blood transfusion Hx of sleep apnea Hypothyroidism Inability to ambulate due to left knee Narcotic dependence Open abdominal wall wound PTSD (post-traumatic stress disorder) Pulmonary hypertension Schizophrenia Seborrheic dermatitis of scalp Seizure Septic arthritis Surgical History H/O abdominal surgery (08/01/22) History of biliary T-tube placement History of cholecystectomy History of esophagogastroduodenoscopy (EGD) History of gastric bypass History of hernia repair History of right knee joint replacement History of total right hip arthroplasty Hx of abdominal surgery (04/05/22) Hx of foot surgery S/P excision of lipoma S/P hip replacement Status post gastric bypass for obesity Status post left knee replacement Family History Other Diabetes Heart disease No family history of adverse response to anesthesia Social History Smoking Status: Current every day smoker Tobacco Type: Cigarettes Cigarettes Per Day: 3; Second Hand Exposure: Yes; Hx Alcohol Use: No Hx Substance Use: Yes Prescribed Medications: Marijuana Last Used Substance: Days (ago) Last Used Substance Other:: Yesterday Preferred Language: Latvian Communication Ability: Effective Visual Impairment: No Limitations Circulation Librarian Required: No Beliefs That Will Affect Care: None marital status: Current Living Situation: Spouse Current Living Situation Comment: home with How many Children do You have: 1 Feels Safe at Home: Yes Assistive Devices: Wheelchair Allergies Allergies Allergy/AdvReac Type Severity Reaction Status Date / Time ALL PAIN MEDICATIONS AdvReac Intermediate ITCHING Uncoded 11/10/22 18:59 NON STOP--PRE RX WITH BENADRYL, OK THEN. Home Meds Home Medications Medication Instructions Recorded Confirmed acetaminophen 325 mg tablet 650 mg PO Q4H PRN Pain 08/08/21 11/10/22 melatonin 3 mg tablet 4.5 mg PO HS PRN Sleep 08/08/21 11/10/22 terbinafine HCl 250 mg tablet 250 mg PO UD 07/31/22 11/10/22 aspirin 81 mg tablet,delayed 81 mg PO DAILY 08/23/22 11/10/22 release Previous Rx's Medication Instructions Recorded diphenhydramine HCl 25 mg capsule 25 mg PO Q4 PRN allergic reaction 07/16/21 (Benadryl) #7 caps gentamicin 0.1 % topical ointment 1 applic topical TID #30 grams 08/25/22 amlodipine 5 mg tablet 5 mg PO DAILY #90 tabs 10/30/22 meloxicam 7.5 mg tablet 7.5 mg PO DAILY #30 tabs 10/30/22 oxycodone 5 mg tablet 5 mg PO Q6H #56 tabs 10/30/22 quetiapine 100 mg tablet (Seroquel) 100 mg PO BID #60 tabs 10/30/22 Results & Data (ED) Vital Signs Vital Signs - 24 hr 11/10/22 16:38 11/10/22 18:12 11/10/22 18:30 Temperature 36.9 C Temperature Source Temporal Artery Scan Pulse Rate 63 58 L Pulse Rate [Left Apical] 55 L Pulse Rate from SpO2 Sensor 59 L Pulse Rhythm Regular Pulse Strength Normal Respiratory Rate 20 18 16 Respiratory Effort / Characteristics Non-Labored Spontaneous Respiratory Depth Normal Normal Respiratory Pattern Regular Blood Pressure 193/127 H 176/94 H Blood Pressure [Left Arm] 180/110 H Blood Pressure Mean 149 121 Blood Pressure Mean [Left Arm] 133 Blood Pressure Position Sitting Pulse Oximetry 100 100 100 Oxygen Delivery Method Room Air Room Air Sepsis Recent Fever Within 48 Hours No Sepsis New/Unexplained Change in Mental Status N/A Sepsis Action Taken by Nursing No Action Required 11/10/22 19:00 11/10/22 19:01 11/10/22 19:21 Temperature Temperature Source Pulse Rate 49 L 50 L 59 L Pulse Rate [Left Apical] Pulse Rate from SpO2 Sensor 48 L 51 L 58 L Pulse Rhythm Pulse Strength Respiratory Rate 16 16 15 Respiratory Effort / Characteristics Respiratory Depth Respiratory Pattern Blood Pressure 167/92 H Blood Pressure [Left Arm] Blood Pressure Mean 117 Blood Pressure Mean [Left Arm] Blood Pressure Position Pulse Oximetry 100 100 100 Oxygen Delivery Method Sepsis Recent Fever Within 48 Hours Sepsis New/Unexplained Change in Mental Status Sepsis Action Taken by Nursing 11/10/22 22:39 11/10/22 22:47 11/10/22 23:31 Temperature Temperature Source Pulse Rate Pulse Rate [Left Apical] Pulse Rate from SpO2 Sensor 79 Pulse Rhythm Pulse Strength Respiratory Rate Respiratory Effort / Characteristics Respiratory Depth Respiratory Pattern Blood Pressure 190/93 H Blood Pressure [Left Arm] 181/94 H 167/91 H Blood Pressure Mean 125 Blood Pressure Mean [Left Arm] 123 116 Blood Pressure Position Pulse Oximetry 100 Oxygen Delivery Method Sepsis Recent Fever Within 48 Hours Sepsis New/Unexplained Change in Mental Status Sepsis Action Taken by Nursing Laboratory Data 11/10/22 17:00 11/10/22 17:00 Lab Results 11/10/22 11/10/22 11/10/22 Range/Units 17:00 17:00 17:00 WBC 6.51 (4.8-10.8) K/ul RBC 4.70 (4.70-6.10) M/uL Hgb 13.8 L (14.0-18.0) g/dl Hct 41.8 L (42.0-52.0) % MCV 88.9 (80.0-100.0) fL MCH 29.4 (25.0-34.0) pg MCHC 33.0 (32.0-36.0) g/dL RDW Std Deviation 49.8 H (36.4-46.3) fL RDW Coeff of Leatha 15.1 H (11.5-14.5) % Plt Count 281 (130-400) K/uL MPV 9.1 L (9.4-12.4) fL Immature Gran % (Auto) 0.2 % Neut % (Auto) 41.8 % Lymph % (Auto) 51.9 % Swift % (Auto) 3.7 % Eos % (Auto) 1.8 % Baso % (Auto) 0.6 % Neut # (Auto) 2.72 (1.40-6.50) K/uL Lymph # (Auto) 3.38 (1.2-3.4) K/uL Swift # (Auto) 0.24 (0.11-0.59) K/uL Eos # (Auto) 0.12 (0-0.50) K/uL Baso # (Auto) 0.04 (0-0.2) K/uL Immature Gran # (Auto) 0.01 (0.01-0.20) K/uL PT 10.6 (9.0-12.0) Seconds INR 1.0 (0.9-1.1) APTT 28.2 (21.0-31.0) Seconds PTT Ratio 1.0 Sodium 143 (136-145) mmol/L Potassium 3.7 (3.5-5.1) mmol/L Chloride 110 H (98-107) mmol/L Carbon Dioxide 25 (21-32) mmol/L Anion Gap 8 (3-11) BUN 11 (6-23) mg/dl Creatinine 1.09 (0.6-1.4) mg/dl Est Cr Clr Drug Dosing Not Reportable Est GFR ( Amer) 85.1 ml/min Est GFR (Non-Af Amer) 73.4 ml/min BUN/Creatinine Ratio 10.1 (10-20) Glucose 105 H (70-99(Fasting)) mg/dl Calcium 9.3 (8.5-10.1) mg/dl Total Bilirubin 0.5 (0.2-1.0) mg/dl AST 15 (13-39) U/L ALT 10 (7-52) U/L Alkaline Phosphatase 82 (34-104) U/L Troponin I High Sens 5.4 (0-20) pg/ml Total Protein 7.5 (6.0-8.3) gm/dl Albumin 4.2 (3.4-5.0) gm/dl Globulin 3.3 (2.5-4.0) gm/dl Albumin/Globulin Ratio 1.3 (0.9-2) Lipase 54 (11-82) U/L SARS-CoV-2, RNA, NAAT (NEGATIVE) 11/10/22 11/10/22 Range/Units 18:46 22:46 WBC (4.8-10.8) K/ul RBC (4.70-6.10) M/uL Hgb (14.0-18.0) g/dl Hct (42.0-52.0) % MCV (80.0-100.0) fL MCH (25.0-34.0) pg MCHC (32.0-36.0) g/dL RDW Std Deviation (36.4-46.3) fL RDW Coeff of Leatha (11.5-14.5) % Plt Count (130-400) K/uL MPV (9.4-12.4) fL Immature Gran % (Auto) % Neut % (Auto) % Lymph % (Auto) % Swift % (Auto) % Eos % (Auto) % Baso % (Auto) % Neut # (Auto) (1.40-6.50) K/uL Lymph # (Auto) (1.2-3.4) K/uL Swift # (Auto) (0.11-0.59) K/uL Eos # (Auto) (0-0.50) K/uL Baso # (Auto) (0-0.2) K/uL Immature Gran # (Auto) (0.01-0.20) K/uL PT (9.0-12.0) Seconds INR (0.9-1.1) APTT (21.0-31.0) Seconds PTT Ratio Sodium (136-145) mmol/L Potassium (3.5-5.1) mmol/L Chloride (98-107) mmol/L Carbon Dioxide (21-32) mmol/L Anion Gap (3-11) BUN (6-23) mg/dl Creatinine (0.6-1.4) mg/dl Est Cr Clr Drug Dosing Est GFR ( Amer) ml/min Est GFR (Non-Af Amer) ml/min BUN/Creatinine Ratio (10-20) Glucose (70-99(Fasting)) mg/dl Calcium (8.5-10.1) mg/dl Total Bilirubin (0.2-1.0) mg/dl AST (13-39) U/L ALT (7-52) U/L Alkaline Phosphatase (34-104) U/L Troponin I High Sens 5.6 (0-20) pg/ml Total Protein (6.0-8.3) gm/dl Albumin (3.4-5.0) gm/dl Globulin (2.5-4.0) gm/dl Albumin/Globulin Ratio (0.9-2) Lipase (11-82) U/L SARS-CoV-2, RNA, NAAT NEGATIVE (NEGATIVE) Administered Medications Discontinued Medications Aspirin (Aspirin Chew 324 Mg) 324 mg PO NOW STA Stop: 11/10/22 21:46 Last Admin: 11/10/22 22:39 Dose: 324 mg Documented By: LUISA Diphenhydramine HCl (Diphenhydramine Capsule 25 Mg Cap) 50 mg PO NOW ONE Stop: 11/10/22 21:53 Last Admin: 11/10/22 22:42 Dose: Not Given Documented By: LUISA Diphenhydramine HCl (Diphenhydramine 50 Mg/Ml Vial) 25 mg IV NOW STA Stop: 11/10/22 22:44 Last Admin: 11/10/22 23:10 Dose: 25 mg Documented By: LUISA Ioversol (Optiray 320 500ml) 114 ml IV ONCE ONE Stop: 11/10/22 19:42 Last Admin: 11/10/22 19:43 Dose: 114 ml Documented By: TUNDE Morphine Sulfate (Morphine Sulfate 4 Mg/Ml 1 Ml Carp\Vial) 4 mg IV NOW STA Stop: 11/10/22 18:26 Last Admin: 11/10/22 18:46 Dose: 4 mg Documented By: SHAYLA Morphine Sulfate (Morphine Sulfate 4 Mg/Ml 1 Ml Carp\Vial) 4 mg IV NOW STA Stop: 11/10/22 22:44 Last Admin: 11/10/22 23:10 Dose: 4 mg Documented By: BS Ondansetron HCl (Ondansetron Inj 2 Mg/Ml 2 Ml Vial) 4 mg IV NOW STA Stop: 11/10/22 22:44 Last Admin: 11/10/22 23:10 Dose: 4 mg Documented By: BS Imaging Data Radiologist's Impression: Chest X-Ray 11/10/22 16:43 XR chest 1V portable HISTORY: 62 years-old Male Chest pain, nonspecific acute chest pain COMPARISON: Chest radiograph 09/30/2018, CT abdomen and pelvis 07/31/2022. TECHNIQUE: AP view of the chest FINDINGS: Cardiac silhouette is mildly enlarged. No pneumothorax or large pleural effusion. Patchy right basilar airspace opacities. Degenerative changes of the shoulders and spine. IMPRESSION: Mild patchy right basilar opacities are suggestive of postinflammatory scarring with atelectasis. A mild pneumonia considered less likely. ACT 112: Negative or not required by law. The above report was generated using voice recognition software. It may contain grammatical, syntax or spelling errors. Electronically signed by: Edgard Klein M.D. 11/10/2022 5:58 PM Abdomen/Pelvis CT 11/10/22 18:25 CT ANGIOGRAM OF THE CHEST; CT SCAN OF THE ABDOMEN AND PELVIS WITH IV CONTRAST CLINICAL HISTORY: Atypical chest pain. Generalized abdominal pain. COMPARISON STUDY: Chest CT dated 09/27/2018. Chest x-ray dated 11/10/2022. Abdominal CT dated 07/31/2022. TECHNIQUE: Following the IV administration of 114 of Optiray 320, CT angiogram of the chest is performed from the upper abdomen to the thoracic inlet utilizing the pulmonary embolus protocol. Images are reviewed in the axial, sagittal, coronal planes. 3-D MIPS images are created and assessed. Subsequently, CT scan of the abdomen and pelvis was performed from the lung bases to the proximal femora. Images are reviewed in the axial, sagittal, and coronal planes. IV co ntrast was administered without complication. A dose lowering technique was utilized adhering to the principles of ALARA. CT DOSE: 1672.10 mGy.cm FINDINGS: CHEST: Thyroid: Imaged portions of the thyroid gland are normal in size and attenuation. Thoracic aorta: There is atherosclerotic calcification of the thoracic aorta, which is normal in caliber and demonstrates standard 3-vessel arch anatomy. No dissection is seen. Pulmonary vasculature: The pulmonary trunk is normal in caliber. Filling defect within a branch of the right middle lobe pulmonary artery on image #146 likely represents motion artifact. No additional filling defects are seen to suggest pulmonary embolus within the main, lobar, or segmental pulmonary arteries. Heart: The heart is mildly enlarged and without pericardial effusion. There are coronary artery calcifications. Lungs and pleural spaces: Mild emphysematous change is noted. Secretions are present in the trachea. There is no airspace consolidation typical for pneumonia or pleural effusion. Parenchymal scarring and mild bronchiectasis is noted in the right middle lobe. Mediastinum: There is no mediastinal lymphadenopathy. Kindra: Clear. Axillae: There is no axillary lymphadenopathy. Bony thorax: The skeletal structures are osteopenic. Degenerative change is noted in the thoracic spine. No lytic or blastic lesions are identified. ABDOMEN AND PELVIS: Liver: The contrast-enhanced liver is normal in size, contour, and attenuation. There is [id number] intrahepatic biliary ductal dilatation. The hepatic veins and portal veins are patent. Gallbladder: Surgically absent and clips in the gallbladder fossa. Spleen: Normal in size and attenuation. Pancreas: Unremarkable. Adrenal glands: Unremarkable. Kidneys: The contrast enhanced kidneys are normal in size and without hydronephrosis. The kidneys enhance symmetrically. A 2.3 cm cyst is noted in the left upper pole. Abdominal vasculature: The abdominal aorta is normal in course and caliber noting mild atherosclerotic calcification. Stomach and bowel: There is a small hiatal hernia. Postoperative change suggests a Khloe-en-Y gastric bypass procedure. There is mild colonic diverticulosis without CT evidence of acute diverticulitis. No bowel obstruction is seen. Mild fecal retention is noted throughout the colon. The appendix is well-visualized and normal. Peritoneum: There is no intraperitoneal free air or abdominal ascites. A midline surgical scar is noted. No fluid collection is identified within the abdominal wall. Lymphadenopathy: None. Pelvic viscera: Evaluation of the pelvis is degraded by streak artifact from a right hip arthroplasty. The bladder, prostate, and seminal vesicles are normal as visualized. There is evidence of previous left inguinal herniorrhaphy. Skeletal structures: The skeletal structures are osteopenic. No lytic or blastic lesions are seen. A right hip arthroplasty is in place. Arthritic change is noted in the left hip. Sclerotic change is seen in the sacroiliac joints and pubic symphysis. IMPRESSION: 1. An apparent filling defect within a branch of the right middle lobe pulmonary artery likely represents motion artifact. A small pulmonary embolus is considered less likely. 2. No additional findings are seen to suggest pulmonary embolus in the main, lobar, or segmental pulmonary arteries. 3. The heart is mildly enlarged and there is mild emphysema. 4. No airspace consolidation or pleural effusion is identified. 5. No acute infectious or inflammatory findings are seen in the abdomen or pelvis. 6. Postsurgical change as above. 7. Additional findings as above. ACT 112: Negative or not required by law. Electronically signed by: Juan Panda M.D. 11/10/2022 8:36 PM Chest CTA 11/10/22 18:25 CT ANGIOGRAM OF THE CHEST; CT SCAN OF THE ABDOMEN AND PELVIS WITH IV CONTRAST CLINICAL HISTORY: Atypical chest pain. Generalized abdominal pain. COMPARISON STUDY: Chest CT dated 09/27/2018. Chest x-ray dated 11/10/2022. Abdominal CT dated 07/31/2022. TECHNIQUE: Following the IV administration of 114 of Optiray 320, CT angiogram of the chest is performed from the upper abdomen to the thoracic inlet utilizing the pulmonary embolus protocol. Images are reviewed in the axial, sagittal, coronal planes. 3-D MIPS images are created and assessed. Subsequently, CT scan of the abdomen and pelvis was performed from the lung bases to the proximal femora. Images are reviewed in the axial, sagittal, and coronal planes. IV contrast was administered without complication. A dose lowering technique was utilized adhering to the principles of ALARA. CT DOSE: 1672.10 mGy.cm FINDINGS: CHEST: Thyroid: Imaged portions of the thyroid gland are normal in size and attenuation. Thoracic aorta: There is atherosclerotic calcification of the thoracic aorta, which is normal in caliber and demonstrates standard 3-vessel arch anatomy. No dissection is seen. Pulmonary vasculature: The pulmonary trunk is normal in caliber. Filling defect within a branch of the right middle lobe pulmonary artery on image #146 likely represents motion artifact. No additional filling defects are seen to suggest pulmonary embolus within the main, lobar, or segmental pulmonary arteries. Heart: The heart is mildly enlarged and without pericardial effusion. There are coronary artery calcifications. Lungs and pleural spaces: Mild emphysematous change is noted. Secretions are present in the trachea. There is no airspace consolidation typical for pneumonia or pleural effusion. Parenchymal scarring and mild bronchiectasis is noted in the right middle lobe. Mediastinum: There is no mediastinal lymphadenopathy. Kindra: Clear. Axillae: There is no axillary lymphadenopathy. Bony thorax: The skeletal structures are osteopenic. Degenerative change is noted in the thoracic spine. No lytic or blastic lesions are identified. ABDOMEN AND PELVIS: Liver: The contrast-enhanced liver is normal in size, contour, and attenuation. There is [id number] intrahepatic biliary ductal dilatation. The hepatic veins and portal veins are patent. Gallbladder: Surgically absent and clips in the gallbladder fossa. Spleen: Normal in size and attenuation. Pancreas: Unremarkable. Adrenal glands: Unremarkable. Kidneys: The contrast enhanced kidneys are normal in size and without hydronephrosis. The kidneys enhance symmetrically. A 2.3 cm cyst is noted in the left upper pole. Abdominal vasculature: The abdominal aorta is normal in course and caliber noting mild atherosclerotic calcification. Stomach and bowel: There is a small hiatal hernia. Postoperative change suggests a Khloe-en-Y gastric bypass procedure. There is mild colonic diverticulosis without CT evidence of acute diverticulitis. No bowel obstruction is seen. Mild fecal retention is noted throughout the colon. The appendix is well-visualized and normal. Peritoneum: There is no intraperitoneal free air or abdominal ascites. A midline surgical scar is noted. No fluid collection is identified within the abdominal wall. Lymphadenopathy: None. Pelvic viscera: Evaluation of the pelvis is degraded by streak artifact from a right hip arthroplasty. The bladder, prostate, and seminal vesicles are normal as visualized. There is evidence of previous left inguinal herniorrhaphy. Skeletal structures: The skeletal structures are osteopenic. No lytic or blastic lesions are seen. A right hip arthroplasty is in place. Arthritic change is noted in the left hip. Sclerotic change is seen in the sacroiliac joints and pubic symphysis. IMPRESSION: 1. An apparent filling defect within a branch of the right middle lobe pulmonary artery likely represents motion artifact. A small pulmonary embolus is considered less likely. 2. No additional findings are seen to suggest pulmonary embolus in the main, lobar, or segmental pulmonary arteries. 3. The heart is mildly enlarged and there is mild emphysema. 4. No airspace consolidation or pleural effusion is identified. 5. No acute infectious or inflammatory findings are seen in the abdomen or pelvis. 6. Postsurgical change as above. 7. Additional findings as above. ACT 112: Negative or not required by law. Electronically signed by: Juan Panda M.D. 11/10/2022 8:36 PM Discharge Plan Visit Data Chief Complaint: Referred by Doctor Stated Complaint: REF BY DOC, ADMIT DUE TO OPEN INFECTION ED Provider: Larry Armando Discharge Problem: Chest pain, Abdominal pain, Acute leg pain Forms Stand Alone Forms: [facility] [employer] Prescriptions Prescriptions: No Action acetaminophen 325 mg tablet 650 mg PO Q4H PRN (Reason: Pain) melatonin 3 mg tablet 4.5 mg PO HS PRN (Reason: Sleep) aspirin 81 mg tablet,delayed release (DR/EC) 81 mg PO DAILY gentamicin 0.1 % ointment 1 applic topical TID Qty: 30 1RF amlodipine 5 mg tablet 5 mg PO DAILY Qty: 90 3RF oxycodone 5 mg tablet 5 mg PO Q6H Qty: 56 0RF Hold Instructions: next refill reduce quantitiy 42 meloxicam 7.5 mg tablet 7.5 mg PO DAILY Qty: 30 2RF quetiapine [Seroquel] 100 mg tablet 100 mg PO BID Qty: 60 2RF diphenhydramine HCl [Benadryl] 25 mg Capsule 25 mg PO Q4 PRN (Reason: allergic reaction) Qty: 7 0RF terbinafine HCl 250 mg tablet 250 mg PO UD Referrals Referrals: Gianfranco Diane DO [Primary Care Provider] -
[2022-11-10] MEDS ORDERED: OPTIRAY 320 500ml IV ONE (19:41)
--- NOTE | 2022-11-10 20:39 | CT Scan Report ---
CT ANGIOGRAM OF THE CHEST; CT SCAN OF THE ABDOMEN AND PELVIS WITH IV CONTRAST CLINICAL HISTORY: Atypical chest pain. Generalized abdominal pain. COMPARISON STUDY: Chest CT dated 09/27/2018. Chest x-ray dated 11/10/2022. Abdominal CT dated 07/31/20. TECHNIQUE: Following the IV administration of 114 of Optiray 320, CT angiogram of the chest is perfor med from the upper abdomen to the thoracic inlet utilizing the pulmonary embolus protocol. Images are reviewed in the axial, sagittal, coronal planes. 3-D MIPS images are created and assessed. Subsequen tly, CT scan of the abdomen and pelvis was performed from the lung bases to the proximal femora. Imag es are reviewed in the axial, sagittal, and coronal planes. IV contrast was administered without comp lication. A dose lowering technique was utilized adhering to the principles of ALARA. CT DOSE: 1672.10 mGy.cm FINDINGS: CHEST: Thyroid: Imaged portions of the thyroid gland are normal in size and attenuation. Thoracic aorta: There is atherosclerotic calcification of the thoracic aorta, which is normal in felicita cesar and demonstrates standard 3-vessel arch anatomy. No dissection is seen. Pulmonary vasculature: The pulmonary trunk is normal in caliber. Filling defect within a branch of the right middle lobe pulmonary artery on image #146 likely represe nts motion artifact. No additional filling defects are seen to suggest pulmonary embolus within the m ain, lobar, or segmental pulmonary arteries. Heart: The heart is mildly enlarged and without pericardial effusion. There are coronary artery calci fications. Lungs and pleural spaces: Mild emphysematous change is noted. Secretions are present in the trachea. There is no airspace consolidation typical for pneumonia or pleural effusion. Parenchymal scarring an d mild bronchiectasis is noted in the right middle lobe. Mediastinum: There is no mediastinal lymphadenopathy. Kindra: Clear. Axillae: There is no axillary lymphadenopathy. Bony thorax: The skeletal structures are osteopenic. Degenerative change is noted in the thoracic spi ne. No lytic or blastic lesions are identified. ABDOMEN AND PELVIS: Liver: The contrast-enhanced liver is normal in size, contour, and attenuation. There is [id number] rate intrahepatic biliary ductal dilatation. The hepatic veins and portal veins are patent. Gallbladder: Surgically absent and clips in the gallbladder fossa. Spleen: Normal in size and attenuation. Pancreas: Unremarkable. Adrenal glands: Unremarkable. Kidneys: The contrast enhanced kidneys are normal in size and without hydronephrosis. The kidneys enh ance symmetrically. A 2.3 cm cyst is noted in the left upper pole. Abdominal vasculature: The abdominal aorta is normal in course and caliber noting mild atheroscleroti c calcification. Stomach and bowel: There is a small hiatal hernia. Postoperative change suggests a Hkloe-en-Y gastric bypass procedure. There is mild colonic diverticulosis without CT evidence of acute diverticulitis. N o bowel obstruction is seen. Mild fecal retention is noted throughout the colon. The appendix is wel l-visualized and normal. Peritoneum: There is no intraperitoneal free air or abdominal ascites. A midline surgical scar is not ed. No fluid collection is identified within the abdominal wall. Lymphadenopathy: None. Pelvic viscera: Evaluation of the pelvis is degraded by streak artifact from a right hip arthroplasty . The bladder, prostate, and seminal vesicles are normal as visualized. There is evidence of previous left inguinal herniorrhaphy. Skeletal structures: The skeletal structures are osteopenic. No lytic or blastic lesions are seen. A right hip arthroplasty is in place. Arthritic change is noted in the left hip. Sclerotic change is se en in the sacroiliac joints and pubic symphysis. IMPRESSION: 1. An apparent filling defect within a branch of the right middle lobe pulmonary artery likely repres ents motion artifact. A small pulmonary embolus is considered less likely. 2. No additional findings are seen to suggest pulmonary embolus in the main, lobar, or segmental pulm onary arteries. 3. The heart is mildly enlarged and there is mild emphysema. 4. No airspace consolidation or pleural effusion is identified. 5. No acute infectious or inflammatory findings are seen in the abdomen or pelvis. 6. Postsurgical change as above. 7. Additional findings as above. ACT 112: Negative or not required by law. Electronically signed by: Juan Panda M.D. 11/10/2022 8:36 PM
[2022-11-10] MEDS ORDERED: ASPIRIN CHEW 324 MG PO STA (21:45)
--- NOTE | 2022-11-10 22:31 | History & Physical Report ---
Date of Service November 10, 2022 Assessment & Plan (1) Chest pain at rest: Plan: Patient is a 62-year-old male with a past medical history of previous CVA, dyspnea on exertion, alcohol abuse, hypertension, tobacco use, chronic pain, PTSD, and GERD presenting to the emergency room via referral from his primary care provider. -Admit to [facility] with telemetry -Chest CTA was noted to have an apparent filling defects within the branch of the right middle lobe pulmonary artery, however, radiology feels this to be a motion artifact. Will not start anticoagulation at this time. -Trend troponins. Initial troponin at 5.4 with repeat pending at the time of writing this note. -Echocardiogram in the morning -Cardiology consulted, appreciate recommendations -Per chart review, patient would benefit from dobutamine stress echocardiography, however, this service is not available on the weekend -Daily EKG x2 days, EKG with chest pain -Morning lipid panel ordered. Lipid panel March 2022 showed really good cholesterol levels (2) MEEHAN (dyspnea on exertion): Plan: -No hypoxia noted on any measurements -Low suspicion for pulmonary embolism per radiology -Suspect it may be due to chest pain that patient is experiencing -Additional work-up as above. -Strongly encourage smoking cessation. -incentive spirometer (3) Surgical wound, non healing: Plan: -Secondary to complication from previous bariatric surgery -Difficulty with wound closure for the past few months. Follows wound care -Currently on topical gentamicin 3 times daily, continue -Overall appears well and seems to be healing now -Frequent bandage changing (4) Left knee pain: Plan: - Secondary to placement of antibiotic spacer in 2020 -Patient has been in wheelchair since. -Pain is chronic and does not seem to be worse than baseline. -Follows with [facility] orthopedic surgery -No surgery consult at this time as it does not seem to be further from baseline. -Pain control: Scheduled Tylenol, morphine 2 mg for pain 4 through 7, 4 mg for pain 8 through 10 every 4 hour -Narcan as needed -PT and OT ordered (5) Tobacco use: Plan: - Smokes 3 cigarettes/day, will hold off nicotine patch for now (6) Hypertension: Plan: -Continue amlodipine (7) Schizophrenia: Plan: - Continue quetiapine 100 mg twice daily Plan Diet: N.p.o. after midnight, LR at 125 cc/h Disposition: Admit to [facility] with telemetry DVT prophylaxis: Lovenox CODE STATUS: Full code History of Present Illness Chief Complaint: Chest Pain Primary Care Provider: Gianfranco Diane DO Patient is a 62-year-old male with a past medical history of previous CVA, dyspnea on exertion, alcohol abuse, hypertension, tobacco use, chronic pain, PTSD, and GERD presenting to the emergency room via referral from his primary care provider. It seems the past few weeks patient has been experiencing worsening chest pain that is come to the point that is experiencing it at rest. He has never had a heart attack previously. He was recently seen by his global chief creative officer on 11/09/2022 who recommended getting echocardiogram as well as a dobutamine stress echocardiogram to evaluate for myocardial ischemia. He had seen his primary care provider earlier today who recommended that since his chest pain is getting worse and the global chief creative officer had already suggested getting all these test done that he should go to the emergency room for evaluation and treatment. Also reports intermittent shortness of breath that occurs with chest pain. Chest pain does not seem to be associated with food. Reports that it does seem to get worse with lying down. Has difficulty with going up a flight of stairs and exercise causing more chest pain shortness of breath. Also has the complaint of worsening pain in his left knee and he explains to me that he had a procedure done in 2020 where he had a knee spacer placed this was to be taken out 2 months after the procedure. Patient reports that he still has it and the procedure is always pushed back due to other conditions. Additionally reports that he had complications from a bariatric surgery that resulted in an abscess on the midline of his abdomen which required drainage and debridement. He has had months of difficulty with wound healing, however, it is much improved than it was initially. Reports smoking 3 cigarettes/day. Admits to prescribed marijuana with last utilization being yesterday. Denies any other recreational drug use. Allergies Allergy/AdvReac Type Severity Reaction Status Date / Time ALL PAIN MEDICATIONS AdvReac Intermediate ITCHING Uncoded 11/10/22 18:59 NON STOP--PRE RX WITH BENADRYL, OK THEN. Home Medications Medication Instructions Recorded Confirmed Type diphenhydramine HCl 25 mg capsule 25 mg PO Q4 PRN allergic reaction 07/16/21 11/10/22 Rx (Benadryl) #7 caps acetaminophen 325 mg tablet 650 mg PO Q4H PRN Pain 08/08/21 11/10/22 History melatonin 3 mg tablet 4.5 mg PO HS PRN Sleep 08/08/21 11/10/22 History terbinafine HCl 250 mg tablet 250 mg PO UD 07/31/22 11/10/22 History aspirin 81 mg tablet,delayed 81 mg PO DAILY 08/23/22 11/10/22 History release gentamicin 0.1 % topical ointment 1 applic topical TID #30 grams 08/25/22 11/10/22 Rx amlodipine 5 mg tablet 5 mg PO DAILY #90 tabs 10/30/22 11/10/22 Rx meloxicam 7.5 mg tablet 7.5 mg PO DAILY #30 tabs 10/30/22 11/10/22 Rx oxycodone 5 mg tablet 5 mg PO Q6H #56 tabs 10/30/22 11/10/22 Rx quetiapine 100 mg tablet (Seroquel) 100 mg PO BID #60 tabs 10/30/22 11/10/22 Rx Past Med/Surg History Medical History Abdominal wall abscess Alcohol abuse Anemia Auditory hallucinations Borderline diabetes Cavitary lesion of lung Chronic GERD Chronic pain Chronic pain of left knee Cirrhosis, alcoholic CKD (chronic kidney disease) Depression Dislocation, hip, posterior Enterocutaneous fistula Heroin overdose History of blood transfusion Hx of sleep apnea Hypothyroidism Inability to ambulate due to left knee Narcotic dependence Open abdominal wall wound PTSD (post-traumatic stress disorder) Pulmonary hypertension Schizophrenia Seborrheic dermatitis of scalp Seizure Septic arthritis Surgical History H/O abdominal surgery (08/01/22) History of biliary T-tube placement History of cholecystectomy History of esophagogastroduodenoscopy (EGD) History of gastric bypass History of hernia repair History of right knee joint replacement History of total right hip arthroplasty Hx of abdominal surgery (04/05/22) Hx of foot surgery S/P excision of lipoma S/P hip replacement Status post gastric bypass for obesity Status post left knee replacement Family History Other Diabetes Heart disease No family history of adverse response to anesthesia Social History Smoking Status: Current every day smoker Tobacco Type: Cigarettes Cigarettes Per Day: 3; Second Hand Exposure: Yes; Hx Alcohol Use: No Hx Substance Use: Yes Prescribed Medications: Marijuana Last Used Substance: Days (ago) Last Used Substance Other:: Yesterday Preferred Language: Chinese Communication Ability: Effective Visual Impairment: No Limitations Lead Systems Architect Required: No Beliefs That Will Affect Care: None marital status: Current Living Situation: Spouse Current Living Situation Comment: home with How many Children do You have: 1 Feels Safe at Home: Yes Assistive Devices: Wheelchair Review of Systems Review of Systems: All systems reviewed & are unremarkable except as noted in HPI & below Physical Exam Constitutional: well developed, cooperative and + in distress Eyes: + anicteric sclerae Neck: trachea midline, no thyromegaly Respiratory: normal respiratory effort, lungs clear to auscultation Cardiovascular: RRR, no murmur, no edema Chest (Breasts): normal inspection/palpation of breasts Gastrointestinal (Abdomen): Inspection/Auscultation: normal bowel sounds and + abdominal surgical incision Percussion/Palpation: + abdomen tender and abdomen soft There is a healing midline incision in the inferior abdomen with granulation tissue present. No purulent discharge. No surrounding erythema. No hyperemia Musculoskeletal: Head/Neck/Chest: normocephalic and head atraumatic Left leg strength limited by pain from previous surgery. Skin: There is bilateral hyperkeratosis and fungus of the feet. Otherwise no rashes, warm and dry. Neurologic: awake Psychiatric: Orientation: alert and oriented x 3 Affect: + anxious affect Results & Data Results & Data ([facility]) Vital Signs (Past 12 Hours) Vital Signs Temp Pulse Pulse Resp BP BP Pulse Ox 11/10/22 18:30 58 L 16 176/94 H 100 11/10/22 18:12 55 L 18 180/110 H 100 11/10/22 16:38 36.9 C 63 20 193/127 H 100 O2 Del Method 11/10/22 18:30 11/10/22 18:12 Room Air 11/10/22 16:38 Room Air Code Status & VTE Plan VTE Prophylaxis Plan VTE Prophylaxis will be ordered: Yes (1) Hypertension Hypertension type: essential hypertension Qualified Code(s): I10 - Essential (primary) hypertension
[2022-11-10] MEDS: diphenhydrAMINE Capsule 25 MG CAP PO ONE ×2 (22:39→22:42)
[2022-11-10] MEDS ORDERED: diphenhydrAMINE 50 MG/ML VIAL IV STA (22:43)
[2022-11-10] MEDS ORDERED: ONDANSETRON INJ 2 MG/ML 2 ML VIAL IV STA (22:43)
[2022-11-10] MEDS ORDERED: diphenhydrAMINE Capsule 25 MG CAP PO PRN (23:52)
[2022-11-10] MEDS ORDERED: ACETAMINOPHEN 325 MG TAB PO PRN (23:52)
[2022-11-10] MEDS ORDERED: POLYETHYLENE (MIRALAX) 17 GM PACK PO PRN (23:52)
[2022-11-10] MEDS ORDERED: ONDANSETRON INJ 2 MG/ML 2 ML VIAL IV PRN (23:52)
[2022-11-10] MEDS ORDERED: NALOXONE HCL 0.4 MG/1 ML VIAL/CARP IV PRN (23:52)
[2022-11-10] MEDS ORDERED: MELATONIN 3 MG TAB PO PRN (23:52)
[2022-11-11] MEDS: MoRPHine SULFATE 2 MG/ML CARP IV PRN ×2 (00:40→05:08)
[2022-11-11] MEDS: ACETAMINOPHEN 325 MG TAB PO SCH ×4 (01:57→18:12)
[2022-11-11] MEDS: diphenhydrAMINE 50 MG/ML VIAL IV PRN ×2 (05:08→13:59)
[2022-11-11 06:58] LABS: Hematocrit (blood only) 34.6 % (42.0-52.0); Hemoglobin 11.7 g/dl (14.0-18.0); Mean Corpuscular Hemoglobin 29.5 pg (25.0-34.0); Mean Corpuscular Hgb Conc 33.8 g/dL (32.0-36.0); Mean Corpuscular Volume 87.2 fL (80.0-100.0); Mean Platelet Volume 9.3 fL (9.4-12.4); Platelet Count 231 K/uL (130-400); RDW Coefficient of Variation 15.2 % (11.5-14.5); Red Blood Count 3.97 M/uL (4.70-6.10); White Blood Count 5.38 K/ul (4.8-10.8)
[2022-11-11 07:20] LABS: BUN Creatinine Ratio 11.1 (10-20); Calcium 8.7 mg/dl (8.5-10.1); Chol HDL Ratio 3.4 (0-5); Creatinine Clr Calc Pharmacy 84.8 ml/min; Est GFR (African American) 78.1 ml/min; Est GFR (Non-African American) 67.4 ml/min; Potassium 3.6 mmol/L (3.5-5.1)
[2022-11-11] MEDS: QUEtiapine FUMARATE 100 MG TABLET PO SCH ×2 (08:26→20:23)
[2022-11-11] MEDS ORDERED: amLODIPine BESYLATE 5 MG TAB PO SCH (09:00)
[2022-11-11] MEDS ORDERED: ENOXAPARIN INJ 40 MG/0.4 ML SYR SQ SCH (09:00)
[2022-11-11] MEDS ORDERED: ASPIRIN 81 MG ECTAB PO SCH (09:00)
[2022-11-11] MEDS ORDERED: FAMOTIDINE 20 MG in SYRINGE 3 ML IV ONE (09:30)
[2022-11-11] MEDS: MoRPHine SULFATE 4 MG/ML 1 ML CARP\\VIAL IV PRN ×2 (09:53→13:59)
[2022-11-11] MEDS: SUCRALFATE 1 GM/10 ML UDC PO SCH ×4 (10:09→20:23)
[2022-11-11] MEDS ORDERED: DOBUTamine HCL 12.5 MG/ML 20 ML VIAL IV ONE (11:58)
[2022-11-11] MEDS ORDERED: ATROPINE SULFATE 0.1 MG/ML 10ML SYR IV ONE (11:58)
[2022-11-11] MEDS ORDERED: METOPROLOL TARTRATE 1 MG/ML VIAL IV ONE (11:58)
[2022-11-11 12:00] LABS: Hematocrit (blood only) 39.2 % (42.0-52.0); Hemoglobin 13.2 g/dl (14.0-18.0)
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
[2022-11-11 12:48] LABS: Ferritin 22.8 ng/ml (8-388)
--- NOTE | 2022-11-11 13:02 | XCELERA ---
[id number]___[id number]
--- NOTE | 2022-11-11 13:03 | XCELERA ---
[id number] \\[id number]
--- NOTE | 2022-11-11 13:07 | Electrocardiogram Report ---
Test Reason : Blood Pressure : / mmHG Vent. Rate : 062 BPM Atrial Rate : 078 BPM P-R Int : 180 ms QRS Dur : 112 ms QT Int : 374 ms P-R-T Axes : 049 -09 056 degrees QTc Int : 379 ms Normal sinus rhythm Poor R wave progression, consider anterior OH vs. lead placement vs. LVH Abnormal ECG When compared with ECG of 31-JUL-2022 12:44, No significant change Confirmed by Francois Henao ([id number]) on 11/11/2022 1:06:53 PM Referred By: Gianfranco Diane Confirmed By:Francois Henao
--- NOTE | 2022-11-11 13:17 | Electrocardiogram Report ---
Test Reason : Blood Pressure : / mmHG Vent. Rate : 061 BPM Atrial Rate : 061 BPM P-R Int : 160 ms QRS Dur : 112 ms QT Int : 408 ms P-R-T Axes : 059 039 067 degrees QTc Int : 410 ms Normal sinus rhythm Nonspecific T wave abnormality Abnormal ECG When compared with ECG of 10-NOV-2022 16:51, (unconfirmed) No significant change Confirmed by Francois Henao ([id number]) on 11/11/2022 1:17:31 PM Referred By: Gianfranco Diane Confirmed By:Francois Henao
--- NOTE | 2022-11-11 13:42 | Hospitalist Progress Note ---
Date of Service November 11, 2022 Assessment & Plan (1) Abdominal pain: Plan: I believe his presenting chest/abd symptoms are due to an upper GI source Diff dx - esophagitis vs peptic ulcer vs anastomotic ulcer vs other Risk factors - gastric bypass status; etoh abuse (intermittent); daily double NSAID use (asa + mobic) He has been seeing melena stools for a few months He has had feeding intolerance Plan - * clear liquids only * PPI twice daily * carafate QID * repeat H/H to ensure stability * spoke with Dr Ortega - [facility] [place] [place] [facility] [place] who will consult in am * keep NPO after MN tonight if he needs more urgent EGD (2) Chest pain: Plan: no evidence of cardiac cause of chest pain likely upper GI in origin CTA chest negative for etiology tele wnl trops all negative dobutamine stress echo NEGATIVE for ischemia no symptoms to suggest pericarditis no symptoms or signs to suggest biliary tract cause (3) Alcohol abuse: Plan: he admits to drinking a large volume of liquor on an intermittent basis suspect this is contributing to #1 above watch for signs of etoh withdrawal (4) Left knee pain: Plan: chronic will obtain x-rays in am just saw [facility] orthopedics on 10/25/22 for the L knee (see scanned documents) no intervention to the L knee until abdominal wall issues are resolved last intervention to his left knee - 07/2021 (Dr Gay - maria a - nonarticulating abx spacer per ortho documentation) (5) Schizophrenia: Plan: continue seroquel 100mg BID (6) Tobacco use: (7) Vitamin B12 deficiency: Plan: undetectable level ! 2nd to gastric bypass status, very poor dietary intake, etc could be contributing LE weakness start B12 injections -- 1000mcg daily x 7 days then once weekly x 4 weeks, then monthly thereafter indefinitely (8) Iron deficiency: Plan: will give venofer 200mg IV x 1 ferritin is low in the 20s c/w poor Fe stores (9) Chronic pain syndrome: Plan: per PDMP gets 5mg of oxycodone prescriptions every 2 weeks will stop morphine he is in severe pain - will make slight dose increase to 7.5mg q6h prn (10) Status post gastric bypass for obesity: Plan: see discussion above in #1 Plan BPs low-normal - hold amlodipine Admission and Anticipated Discharge Date Admission Date: November 10, 2022 Subjective tele overnight wnl had returned from dobutamine stress test - neg for ischemia patient sitting in wheelchair at first he wanted to discuss his left knee issues has abx spacer in place has chronic pain - takes oxycodone 4 times a day for this also uses meloxicam 2-3 times a day takes daily aspirin admits to drinking etoh - only a few times month, but when he drinks etoh it is a large quantity of more for ~2 months has been seeing dark stools during that same time period has lost weight, unable to keep most things down has pain in the expected location of the lower esophagus as well as high epigastric region - usually seconds to minutes after attempting to eat some nausea confirmed he had gastric bypass in 2007 at [facility] was near 500 pounds - lost 200+ pounds with his surgery had an abscess on his abdominal wall but this has improved over time the orthopedic surgeons apparently wanted to have this abscess clear before they would operate on his left knee Review of Systems Review of Systems: gen - weight loss, poor appetite cv - lower right chest wall pain, no orthopnea pulm - no dyspnea this am, no cough GI - upper abd pain, nausea, emesis musculo - left knee pain - chronic, follows with [facility]; is supposed to have surgery ?? neuro - cannot walk because of chronic pain in both knees - worse on Left Physical Exam Physical Exam: gen - sitting in wheelchair, NAD mouth - MMM neck - no JVD heart - RRR, s1 s2, no murmur lungs - CTA b/l chest - no reproducible chest wall tenderness to palpation abd - multiple scars with largest in midline; no ulceration or open areas; high epigastric region pain to palpation; BS+; no HSM ext - left ankle trace edema, no edema on right; pulses 2+ b/l musculo - left knee - ?mild effusion but no warmth; large midline scar Results & Data Results & Data ([facility]) Vital Signs (Past 12 Hours) Vital Signs Temp Pulse Resp BP BP Pulse Ox O2 Del Method 11/11/22 11:37 36.4 C L 68 18 91/54 L 100 Room Air 11/11/22 11:24 Room Air 11/11/22 06:46 36.5 C 57 L 16 119/76 98 Room Air 11/11/22 04:16 36.7 C 74 16 120/76 99 Room Air 11/11/22 02:54 36.7 C 74 18 120/76 99 Room Air Laboratory Results Laboratory Results - last 24 hr 11/10/22 11/10/22 11/10/22 17:00 17:00 17:00 WBC 6.51 RBC 4.70 Hgb 13.8 L Hct 41.8 L MCV 88.9 MCH 29.4 MCHC 33.0 RDW Std Deviation 49.8 H RDW Coeff of Leatha 15.1 H Plt Count 281 MPV 9.1 L Immature Gran % (Auto) 0.2 Neut % (Auto) 41.8 Lymph % (Auto) 51.9 Ventura % (Auto) 3.7 Eos % (Auto) 1.8 Baso % (Auto) 0.6 Neut # (Auto) 2.72 Lymph # (Auto) 3.38 Ventura # (Auto) 0.24 Eos # (Auto) 0.12 Baso # (Auto) 0.04 Immature Gran # (Auto) 0.01 PT 10.6 INR 1.0 APTT 28.2 PTT Ratio 1.0 Sodium 143 Potassium 3.7 Chloride 110 H Carbon Dioxide 25 Anion Gap 8 BUN 11 Creatinine 1.09 Est Cr Clr Drug Dosing Not Reportable Est GFR ( Amer) 85.1 Est GFR (Non-Af Amer) 73.4 BUN/Creatinine Ratio 10.1 Glucose 105 H Calcium 9.3 Iron TIBC Unsaturated IBC Transferrin % Sat Ferritin Total Bilirubin 0.5 AST 15 ALT 10 Alkaline Phosphatase 82 Troponin I High Sens 5.4 Total Protein 7.5 Albumin 4.2 Globulin 3.3 Albumin/Globulin Ratio 1.3 Triglycerides Cholesterol LDL Cholesterol, Calc VLDL Cholesterol, Calc HDL Cholesterol Cholesterol/HDL Ratio Lipase 54 Vitamin B12 SARS-CoV-2, RNA, NAAT 11/10/22 11/10/22 11/11/22 18:46 22:46 00:33 WBC RBC Hgb Hct MCV MCH MCHC RDW Std Deviation RDW Coeff of Leatha Plt Count MPV Immature Gran % (Auto) Neut % (Auto) Lymph % (Auto) Ventura % (Auto) Eos % (Auto) Baso % (Auto) Neut # (Auto) Lymph # (Auto) Vent[place] # (Auto) Eos # (Auto) Baso # (Auto) Immature Gran # (Auto) PT INR APTT PTT Ratio Sodium Potassium Chloride Carbon Dioxide Anion Gap BUN Creatinine Est Cr Clr Drug Dosing Est GFR ( Amer) Est GFR (Non-Af Amer) BUN/Creatinine Ratio Glucose Calcium Iron TIBC Unsaturated IBC Transferrin % Sat Ferritin Total Bilirubin AST ALT Alkaline Phosphatase Troponin I High Sens 5.6 5.3 Total Protein Albumin Globulin Albumin/Globulin Ratio Triglycerides Cholesterol LDL Cholesterol, Calc VLDL Cholesterol, Calc HDL Cholesterol Cholesterol/HDL Ratio Lipase Vitamin B12 SARS-CoV-2, RNA, NAAT NEGATIVE 11/11/22 11/11/22 11/11/22 06:32 06:32 06:32 WBC 5.38 RBC 3.97 L Hgb 11.7 L Hct 34.6 L MCV 87.2 MCH 29.5 MCHC 33.8 RDW Std Deviation 49.0 H RDW Coeff of Leatha 15.2 H Plt Count 231 MPV 9.3 L Immature Gran % (Auto) Neut % (Auto) Lymph % (Auto) Vent[place] % (Auto) Eos % (Auto) Baso % (Auto) Neut # (Auto) Lymph # (Auto) Vent[place] # (Auto) Eos # (Auto) Baso # (Auto) Immature Gran # (Auto) PT INR APTT PTT Ratio Sodium 141 Potassium 3.6 Chloride 112 H Carbon Dioxide 27 Anion Gap 2 L BUN 13 Creatinine 1.17 Est Cr Clr Drug Dosing 84.8 Est GFR ( Amer) 78.1 Est GFR (Non-Af Amer) 67.4 BUN/Creatinine Ratio 11.1 Glucose 77 Calcium 8.7 Iron TIBC Unsaturated IBC Transferrin % Sat Ferritin Total Bilirubin AST ALT Alkaline Phosphatase Troponin I High Sens 4.8 Total Protein Albumin Globulin Albumin/Globulin Ratio Triglycerides 75 Cholesterol 128 LDL Cholesterol, Calc 75 VLDL Cholesterol, Calc 15 HDL Cholesterol 38 Cholesterol/HDL Ratio 3.4 Lipase Vitamin B12 SARS-CoV-2, RNA, NAAT 11/11/22 11/11/22 11/11/22 11:44 11:44 11:44 WBC RBC Hgb 13.2 L Hct 39.2 L MCV MCH MCHC RDW Std Deviation RDW Coeff of Leatha Plt Count MPV Immature Gran % (Auto) Neut % (Auto) Lymph % (Auto) Vent[place] % (Auto) Eos % (Auto) Baso % (Auto) Neut # (Auto) Lymph # (Auto) [place] # (Auto) Eos # (Auto) Baso # (Auto) Immature Gran # (Auto) PT INR APTT PTT Ratio Sodium Potassium Chloride Carbon Dioxide Anion Gap BUN Creatinine Est Cr Clr Drug Dosing Est GFR ( Amer) Est GFR (Non-Af Amer) BUN/Creatinine Ratio Glucose Calcium Iron 82 TIBC 315 Unsaturated IBC 233 Transferrin % Sat 26 Ferritin 22.8 Total Bilirubin AST ALT Alkaline Phosphatase Troponin I High Sens 4.9 Total Protein Albumin Globulin Albumin/Globulin Ratio Triglycerides Cholesterol LDL Cholesterol, Calc VLDL Cholesterol, Calc HDL Cholesterol Cholesterol/HDL Ratio Lipase Vitamin B12 SARS-CoV-2, RNA, NAAT 11/11/22 11:44 WBC RBC Hgb Hct MCV MCH MCHC RDW Std Deviation RDW Coeff of Leatha Plt Count MPV Immature Gran % (Auto) Neut % (Auto) Lymph % (Auto) Vent[place] % (Auto) Eos % (Auto) Baso % (Auto) Neut # (Auto) Lymph # (Auto) [place] # (Auto) Eos # (Auto) Baso # (Auto) Immature Gran # (Auto) PT INR APTT PTT Ratio Sodium Potassium Chloride Carbon Dioxide Anion Gap BUN Creatinine Est Cr Clr Drug Dosing Est GFR ( Amer) Est GFR (Non-Af Amer) BUN/Creatinine Ratio Glucose Calcium Iron TIBC Unsaturated IBC Transferrin % Sat Ferritin Total Bilirubin AST ALT Alkaline Phosphatase Troponin I High Sens Total Protein Albumin Globulin Albumin/Globulin Ratio Triglycerides Cholesterol LDL Cholesterol, Calc VLDL Cholesterol, Calc HDL Cholesterol Cholesterol/HDL Ratio Lipase Vitamin B12 < 50 L SARS-CoV-2, RNA, NAAT PG Care Time/CCT Total # of Minutes Spent Total Time Spent with Patient: Total time spent is greater than 50% in coordination of care (as documented) at patient's floor/unit and/or counseling patient: Coding Level of Care Code 51676 SUB INP/OBS CARE 3/50MIN Diagnoses Abdominal pain R10.9 Chest pain R07.9 Alcohol abuse F10.10 Left knee pain M25.562 Schizophrenia F20.9 Tobacco use Z72.0 Vitamin B12 deficiency E53.8 Iron deficiency E61.1 Chronic pain syndrome G89.4 Status post gastric bypass for obesity Z98.84
[2022-11-11] MEDS: CYANOCOBALAMIN 1000 MCG/ML VIAL IM SCH (14:24)
[2022-11-11] MEDS: PANTOprazole 40 MG in SYRINGE 0 ML IV SCH ×2 (14:26→20:23)
[2022-11-11] MEDS: oxyCODONE HCL IR 5 MG TAB (IMMEDIATE RELEASE) PO PRN (18:18)
--- NOTE | 2022-11-11 20:12 | Billing Data ---
Date of Service November 11, 2022 Coding Level of Care Code 59268 INT INP/OBS CARE
[2022-11-11] MEDS ORDERED: diphenhydrAMINE 50 MG/ML VIAL IV PRN (22:08)
[2022-11-11] MEDS ORDERED: MoRPHine SULFATE 2 MG/ML CARP IV STA (22:08)
[2022-11-12] MEDS: ACETAMINOPHEN 325 MG TAB PO SCH ×5 (03:56→23:02)
[2022-11-12 06:54] LABS: Hematocrit (blood only) 37.1 % (42.0-52.0); Hemoglobin 12.3 g/dl (14.0-18.0); Mean Corpuscular Hemoglobin 29.4 pg (25.0-34.0); Mean Corpuscular Hgb Conc 33.2 g/dL (32.0-36.0); Mean Corpuscular Volume 88.5 fL (80.0-100.0); Mean Platelet Volume 8.8 fL (9.4-12.4); Platelet Count 217 K/uL (130-400); RDW Coefficient of Variation 15.2 % (11.5-14.5); RDW Standard Deviation 49.9 fL (36.4-46.3); Red Blood Count 4.19 M/uL (4.70-6.10); White Blood Count 6.56 K/ul (4.8-10.8)
[2022-11-12] MEDS: oxyCODONE HCL IR 5 MG TAB (IMMEDIATE RELEASE) PO PRN ×3 (07:05→19:16)
[2022-11-12 07:21] LABS: Calcium 8.3 mg/dl (8.5-10.1); Creatinine Clr Calc Pharmacy 84.8 ml/min; Est GFR (African American) 78.1 ml/min; Est GFR (Non-African American) 67.4 ml/min; Potassium 3.8 mmol/L (3.5-5.1)
[2022-11-12] MEDS: CYANOCOBALAMIN 1000 MCG/ML VIAL IM SCH (07:47)
[2022-11-12] MEDS: SUCRALFATE 1 GM/10 ML UDC PO SCH ×4 (07:47→20:55)
[2022-11-12] MEDS: QUEtiapine FUMARATE 100 MG TABLET PO SCH ×2 (07:47→20:55)
[2022-11-12] MEDS ORDERED: IRON SUCROSE 200 MG in 0.9 % SODIUM CHLORIDE 100 ML IV ONE (08:30)
[2022-11-12] MEDS: PANTOprazole 40 MG in SYRINGE 0 ML IV SCH ×2 (08:33→20:54)
--- NOTE | 2022-11-12 10:03 | XRay Report ---
LEFT KNEE 2 VIEWS CLINICAL HISTORY: Chronic left knee pain. FINDINGS: AP and crosstable lateral views of the left knee are compared to study dated 09/06/2021. Th e skeletal structures are osteopenic. Advanced destructive change is again seen involving the knee delaney int with an antibiotic spacer in place. No acute erosive change is seen. Benign-appearing periostitis is again noted along the distal femoral metaphysis. Bony fragment are present around the joint. Ther e is soft tissue edema around the knee and a small joint effusion. IMPRESSION: 1. Soft tissue swelling with no acute bony abnormality identified. 2. Advanced degenerative/destructive change of the knee as above with an antibiotic spacer in place. Electronically signed by: Juan Panda M.D. 11/12/2022 10:02 AM
--- NOTE | 2022-11-12 10:45 | Electrocardiogram Report ---
Test Reason : Blood Pressure : / mmHG Vent. Rate : 058 BPM Atrial Rate : 058 BPM P-R Int : 184 ms QRS Dur : 114 ms QT Int : 434 ms P-R-T Axes : 080 073 069 degrees QTc Int : 426 ms Sinus bradycardia Otherwise normal ECG When compared with ECG of 11-NOV-2022 05:21, Incomplete left bundle block is no longer Present Confirmed by Francois Henao ([id number]) on 11/12/2022 10:45:19 AM Referred By: Gianfranco Diane Confirmed By:Francois Henao
--- NOTE | 2022-11-12 12:49 | Gastrointestinal Consultation ---
Date of Consultation November 12, 2022 Assessment & Plan (1) Abdominal pain: Plan 62 yo male with chronic pain hx on oxycodone here with abdominal pains/chest pains improving with PPI/carafate, negative cardiac stress test recs: --continue protonix BID and carafate QID --follow up in 1-2 weeks as an outpatient, may consider outpatient EGD if symptoms persist History of Present Illness Attending Physician: Gucci Glover History of Present Illness 62 yo male with hx gastric bypass here with epigastric pains/chest pains that feels like pulling sensation, was sharp before. He is on oxycodone at home for chronic pains. notes dark stools for last few months, was placed on PPI and carafate this admission and has noticed improvement in his pains, stress test was negative. He does drink alcohol in the form of more. mild anemia noted on labs hgb 12.3. Allergies Allergy/AdvReac Type Severity Reaction Status Date / Time ALL PAIN MEDICATIONS AdvReac Intermediate ITCHING Uncoded 11/10/22 18:59 NON STOP--PRE RX WITH BENADRYL, OK THEN. Home Medications Medication Instructions Recorded Confirmed Type diphenhydramine HCl 25 mg capsule 25 mg PO Q4 PRN allergic reaction 07/16/21 11/10/22 Rx (Benadryl) #7 caps acetaminophen 325 mg tablet 650 mg PO Q4H PRN Pain 08/08/21 11/10/22 History melatonin 3 mg tablet 4.5 mg PO HS PRN Sleep 08/08/21 11/10/22 History terbinafine HCl 250 mg tablet 250 mg PO UD 07/31/22 11/10/22 History aspirin 81 mg tablet,delayed 81 mg PO DAILY 08/23/22 11/10/22 History release gentamicin 0.1 % topical ointment 1 applic topical TID #30 grams 08/25/22 11/10/22 Rx amlodipine 5 mg tablet 5 mg PO DAILY #90 tabs 10/30/22 11/10/22 Rx meloxicam 7.5 mg tablet 7.5 mg PO DAILY #30 tabs 10/30/22 11/10/22 Rx oxycodone 5 mg tablet 5 mg PO Q6H #56 tabs 10/30/22 11/10/22 Rx quetiapine 100 mg tablet (Seroquel) 100 mg PO BID #60 tabs 10/30/22 11/10/22 Rx Patient History Medical History Abdominal wall abscess Alcohol abuse Anemia Auditory hallucinations Borderline diabetes Cavitary lesion of lung Chronic GERD Chronic pain Chronic pain of left knee Cirrhosis, alcoholic CKD (chronic kidney disease) Depression Dislocation, hip, posterior Enterocutaneous fistula Heroin overdose History of blood transfusion Hx of sleep apnea Hypothyroidism Inability to ambulate due to left knee Narcotic dependence Open abdominal wall wound PTSD (post-traumatic stress disorder) Pulmonary hypertension Schizophrenia Seborrheic dermatitis of scalp Seizure Septic arthritis Surgical History H/O abdominal surgery (08/01/22) History of biliary T-tube placement History of cholecystectomy History of esophagogastroduodenoscopy (EGD) History of gastric bypass History of hernia repair History of right knee joint replacement History of total right hip arthroplasty Hx of abdominal surgery (04/05/22) Hx of foot surgery S/P excision of lipoma S/P hip replacement Status post gastric bypass for obesity Status post left knee replacement Family History Other Diabetes Heart disease No family history of adverse response to anesthesia Social History Smoking Status: Current every day smoker Tobacco Type: Cigarettes Cigarettes Per Day: 3; Second Hand Exposure: Yes; Hx Alcohol Use: Yes Alcohol type: hard liquor Hx Substance Use: Yes Prescribed Medications: Marijuana Last Used Substance: Days (ago) Last Used Substance Other:: Yesterday Preferred Language: Mongolian Communication Ability: Effective Visual Impairment: No Limitations Supervisor Housecleaner Required: No Beliefs That Will Affect Care: None marital status: Current Living Situation: Spouse, Family and Other Current Living Situation Comment: Lives with son How many Children do You have: 1 Other Information That Helps Us Care for You: No Feels Safe at Home: Yes Safety Concerns: Feels Safe At This Time Assistive Devices: Wheelchair Results & Data ([facility]) Vital Signs (Past 12 Hours) Vital Signs Temp Pulse Resp BP Pulse Ox O2 Del Method 11/12/22 08:15 Room Air 11/12/22 03:28 36.3 C L 57 L 16 127/76 99 Room Air PG Care Time/CCT Total # of Minutes Spent Total Time Spent with Patient: Total time spent is greater than 50% in coordination of care (as documented) at patient's floor/unit and/or counseling patient: Coding Level of Care Code None Diagnoses Abdominal pain R10.9
[2022-11-12] MEDS: DICLOFENAC SOD 1% GEL 100 GM TUBE EXT SCH ×3 (13:17→21:06)
--- NOTE | 2022-11-12 15:35 | XRay Report ---
SINGLE VIEW PELVIS; SINGLE VIEW RIGHT HIP; SINGLE VIEW LEFT HIP CLINICAL HISTORY: Bilateral hip pain. FINDINGS: AP views of the pelvis with frog-leg views of the right and left hip are compared to study dated 12/30/2018 and correlated with pelvic CT dated 11/10/2022. The skeletal structures are osteopenic. No acute fracture is seen involving the hips or bony pelvis. A bipolar right hip arthroplasty is in near anatomic alignment. No periprosthetic lucency is identified. Moderate arthritic change and joint space narrowing is seen in the left hip. Mild sclerotic change is noted in the sacroiliac joints. En thesophytes arise from the anterior superior iliac spines. The overlying soft tissues are within norm al limits. IMPRESSION: No acute bony abnormality is identified. Electronically signed by: Juan Panda M.D. 11/12/2022 3:32 PM
[2022-11-13] MEDS: oxyCODONE HCL IR 5 MG TAB (IMMEDIATE RELEASE) PO PRN ×3 (01:31→13:54)
[2022-11-13] MEDS: ACETAMINOPHEN 325 MG TAB PO SCH ×2 (05:43→11:41)
[2022-11-13] MEDS ORDERED: IRON SUCROSE 300 MG in SODIUM CHLORIDE 0.9% 250 ML IV ONE (08:00)
[2022-11-13 08:49] LABS: Hematocrit (blood only) 37.2 % (42.0-52.0); Hemoglobin 12.3 g/dl (14.0-18.0); Mean Corpuscular Hemoglobin 29.3 pg (25.0-34.0); Mean Corpuscular Hgb Conc 33.1 g/dL (32.0-36.0); Mean Corpuscular Volume 88.6 fL (80.0-100.0); Mean Platelet Volume 9.2 fL (9.4-12.4); Platelet Count 229 K/uL (130-400); RDW Coefficient of Variation 15.4 % (11.5-14.5); RDW Standard Deviation 49.8 fL (36.4-46.3)
--- NOTE | 2022-11-13 08:52 | Pain Management Consultation ---
Date of Consultation November 13, 2022 Assessment & Plan (1) Chronic pain syndrome: (2) Left knee pain: (3) Status post left knee replacement: (4) H/O abdominal surgery: Plan 1. No role for interventional pain management at this time. 2. Recommend patient follow-up with orthopedics at [facility] as an outpatient for consideration of repeat left TKA. Patient states he will call for an appointment today. 3. Recommend continuation of oxycodone 7.5 mg p.o. every 6 as needed pain. This is currently prescribed by his PCP. 4. Offered the patient Lidoderm patches he defers. Continue Voltaren as previous. 5. Thank you for this consultation, please call with any questions, pain management will sign off. History of Present Illness Attending Physician: Gucci Glover History of Present Illness 62-year-old male with history of left TKA in the past by Dr. Bourgeois which unfortunately became infected requiring removal of hardware and placement of ant ibiotic spacer at [facility] in [facility]. Patient states that he utilized the spacer for approximately 5 years during which pain chronically worsened requiring repeat spacer placement at [facility] in 2020. He was scheduled to have a repeat left TKA performed in October 2021 however a abdominal abscess was noted and the surgery was delayed. He has underwent wound clinic treatment for his abdominal abscess which is now healed per the patient. He has a repeat wound clinic appointment on November 16 for further evaluation. He states that his #1 area of concern pain is his left chronic knee pain which is characterized as stabbing deep aching rating at 7 out of 10. He states his pain is the same as it is when he is an outpatient and is hopeful to walk again once he has his TKA placed. He reports being eager to get back to the gym and to no longer reside in a wheelchair. He has been working with his PCP Dr. Diane in regards to his opiates. He had been weaned to oxy IR 5 mg p.o. every 6 as needed. During this hospitalization it was increased to 7.5 mg p.o. every 6 as needed. He reports fair control of pain at this current time stating "it is the same as it is when I am an outpatient." No other pain concerns or constitutional complaints. He denies side effects mental sedation or constipation secondary to opiate dosing. Pain Assessment Full Body Front + Back: 1. [facility] Combined Pain Scale: 7-Severe - Pain prevents productive activity. Impossible to tolerate. Allergies Allergy/AdvReac Type Severity Reaction Status Date / Time ALL PAIN MEDICATIONS AdvReac Intermediate ITCHING Uncoded 11/10/22 18:59 NON STOP--PRE RX WITH BENADRYL, OK THEN. Home Medications Medication Instructions Recorded Confirmed Type diphenhydramine HCl 25 mg capsule 25 mg PO Q4 PRN allergic reaction 07/16/21 11/10/22 Rx (Benadryl) #7 caps acetaminophen 325 mg tablet 650 mg PO Q4H PRN Pain 08/08/21 11/10/22 History melatonin 3 mg tablet 4.5 mg PO HS PRN Sleep 08/08/21 11/10/22 History terbinafine HCl 250 mg tablet 250 mg PO UD 07/31/22 11/10/22 History aspirin 81 mg tablet,delayed 81 mg PO DAILY 08/23/22 11/10/22 History release gentamicin 0.1 % topical ointment 1 applic topical TID #30 grams 08/25/22 11/10/22 Rx amlodipine 5 mg tablet 5 mg PO DAILY #90 tabs 10/30/22 11/10/22 Rx meloxicam 7.5 mg tablet 7.5 mg PO DAILY #30 tabs 10/30/22 11/10/22 Rx oxycodone 5 mg tablet 5 mg PO Q6H #56 tabs 10/30/22 11/10/22 Rx quetiapine 100 mg tablet (Seroquel) 100 mg PO BID #60 tabs 10/30/22 11/10/22 Rx Patient History Medical History Abdominal wall abscess x 3 yrs per general surgery records Alcohol abuse Anemia pt unaware Auditory hallucinations Borderline diabetes pt denies Cavitary lesion of lung Chronic GERD Chronic pain Chronic pain of left knee Cirrhosis, alcoholic CKD (chronic kidney disease) pt denies Depression Dislocation, hip, posterior Enterocutaneous fistula Heroin overdose hx History of blood transfusion 2020 Hx of sleep apnea no problems since the gastric bypass. Hypothyroidism states he stopped his medication "a long time ago" TSH 2.4 04/03/22 Inability to ambulate due to left knee Narcotic dependence Open abdominal wall wound PTSD (post-traumatic stress disorder) Pulmonary hypertension RVP 40-50 mmHg 2018 echo Schizophrenia reason for seroquel. Seborrheic dermatitis of scalp Seizure states he was told he had one ~3-4 years ago. does not currently take any medication, no problems since Septic arthritis Surgical History H/O abdominal surgery (08/01/22) Incision and debridement of abdominal wound suture sinus, midline incision. History of biliary T-tube placement History of cholecystectomy History of esophagogastroduodenoscopy (EGD) History of gastric bypass History of hernia repair left inguinal hernia repair. R incarcerated inguinal hernia repair 11/22/18: Grade 1 view, MAC 4, ETT 8.0. No postop issues per anesthesia progress note. History of right knee joint replacement History of total right hip arthroplasty Hx of abdominal surgery (04/05/22) Exploration Abdominal Wall Wound, Excision of Abdominal Scar and Chronic Abdominal Wound - Toni Edward DO Hx of foot surgery S/P excision of lipoma Right thigh on 10/13/18 under [facility] with LMA#5 S/P hip replacement right Status post gastric bypass for obesity Status post left knee replacement With multiple revisions. Presently with antibiotic spacer in place Family History Other Diabetes Heart disease No family history of adverse response to anesthesia Social History Smoking Status: Current every day smoker Tobacco Type: Cigarettes Cigarettes Per Day: 3; Second Hand Exposure: Yes; Hx Alcohol Use: Yes Alcohol type: hard liquor Hx Substance Use: Yes Prescribed Medications: Marijuana Last Used Substance: Days (ago) Last Used Substance Other:: Yesterday Preferred Language: Icelandic Communication Ability: Effective Visual Impairment: No Limitations Supplier Diversity Director Required: No Beliefs That Will Affect Care: None marital status: Current Living Situation: Spouse, Family and Other Current Living Situation Comment: Lives with son How many Children do You have: 1 Other Information That Helps Us Care for You: No Feels Safe at Home: Yes Safety Concerns: Feels Safe At This Time Assistive Devices: Wheelchair Physical Exam Constitutional: WD/WN, vitals as above Eyes: PERRL, conjunctivae normal, anicteric sclerae ENMT: external ear and nose normal, oropharynx normal Neck: normal visual inspection Respiratory: normal respiratory effort; no respiratory distress Cardiovascular: Rate/Rhythm: regular rate and regular rhythm Gastrointestinal (Abdomen): Inspection/Auscultation: + abdominal surgical scar (appears healed) Musculoskeletal: Gait: + abnormal gait (resides in WC) Knee: + deformity, + surgical incision (L TKA incision, no erythema/drainage.) and + joint line tenderness; no effusion, no skin erythema and no ecchymosis Skin: no rashes, warm and dry Psychiatric: Orientation: alert, oriented x 3 and cooperative Eye Contact: good eye contact Results (Pain Clinic) Diagnostic Review CT: enhanced and reports reviewed CT Findings: 11/10/22 CT ANGIOGRAM OF THE CHEST; CT SCAN OF THE ABDOMEN AND PELVIS WITH IV CONTRAST CLINICAL HISTORY: Atypical chest pain. Generalized abdominal pain. COMPARISON STUDY: Chest CT dated 09/27/2018. Chest x-ray dated 11/10/2022. Abdominal CT dated 07/31/2022. TECHNIQUE: Following the IV administration of 114 of Optiray 320, CT angiogram of the chest is performed from the upper abdomen to the thoracic inlet utilizing the pulmonary embolus protocol. Images are reviewed in the axial, sagittal, coronal planes. 3-D MIPS images are created and assessed. Subsequently, CT scan of the abdomen and pelvis was performed from the lung bases to the proximal femora. Images are reviewed in the axial, sagittal, and coronal planes. IV contrast was administered without complication. A dose lowering technique was utilized adhering to the principles of ALARA. CT DOSE: 1672.10 mGy.cm FINDINGS: CHEST: Thyroid: Imaged portions of the thyroid gland are normal in size and attenuation. Thoracic aorta: There is atherosclerotic calcification of the thoracic aorta, which is normal in caliber and demonstrates standard 3-vessel arch anatomy. No dissection is seen. Pulmonary vasculature: The pulmonary trunk is normal in caliber. Filling defect within a branch of the right middle lobe pulmonary artery on image #146 likely represents motion artifact. No additional filling defects are seen to suggest pulmonary embolus within the main, lobar, or segmental pulmonary arteries. Heart: The heart is mildly enlarged and without pericardial effusion. There are coronary artery calcifications. Lungs and pleural spaces: Mild emphysematous change is noted. Secretions are present in the trachea. There is no airspace consolidation typical for pneumonia or pleural effusion. Parenchymal scarring and mild bronchiectasis is noted in the right middle lobe. Mediastinum: There is no mediastinal lymphadenopathy. Kindra: Clear. Axillae: There is no axillary lymphadenopathy. Bony thorax: The skeletal structures are osteopenic. Degenerative change is noted in the thoracic spine. No lytic or blastic lesions are identified. ABDOMEN AND PELVIS: Liver: The contrast-enhanced liver is normal in size, contour, and attenuation. There is [id number] intrahepatic biliary ductal dilatation. The hepatic veins and portal veins are patent. Gallbladder: Surgically absent and clips in the gallbladder fossa. Spleen: Normal in size and attenuation. Pancreas: Unremarkable. Adrenal glands: Unremarkable. Kidneys: The contrast enhanced kidneys are normal in size and without hydronephrosis. The kidneys enhance symmetrically. A 2.3 cm cyst is noted in the left upper pole. Abdominal vasculature: The abdominal aorta is normal in course and caliber noting mild atherosclerotic calcification. Stomach and bowel: There is a small hiatal hernia. Postoperative change suggests a Khloe-en-Y gastric bypass procedure. There is mild colonic diverticulosis without CT evidence of acute diverticulitis. No bowel obstruction is seen. Mild fecal retention is noted throughout the colon. The appendix is well-visualized and normal. Peritoneum: There is no intraperitoneal free air or abdominal ascites. A midline surgical scar is noted. No fluid collection is identified within the abdominal wall. Lymphadenopathy: None. Pelvic viscera: Evaluation of the pelvis is degraded by streak artifact from a right hip arthroplasty. The bladder, prostate, and seminal vesicles are normal as visualized. There is evidence of previous left inguinal herniorrhaphy. Skeletal structures: The skeletal structures are osteopenic. No lytic or blastic lesions are seen. A right hip arthroplasty is in place. Arthritic change is noted in the left hip. Sclerotic change is seen in the sacroiliac joints and pubic symphysis. IMPRESSION: 1. An apparent filling defect within a branch of the right middle lobe pulmonary artery likely represents motion artifact. A small pulmonary embolus is considered less likely. 2. No additional findings are seen to suggest pulmonary embolus in the main, lobar, or segmental pulmonary arteries. 3. The heart is mildly enlarged and there is mild emphysema. 4. No airspace consolidation or pleural effusion is identified. 5. No acute infectious or inflammatory findings are seen in the abdomen or pelvis. 6. Postsurgical change as above. 7. Additional findings as above. Radiology: reports reviewed Radiology Findings: 2/5/23 LEFT KNEE 2 VIEWS CLINICAL HISTORY: Chronic left knee pain. FINDINGS: AP and crosstable lateral views of the left knee are compared to study dated 09/06/2021. The skeletal structures are osteopenic. Advanced destructive change is again seen involving the knee joint with an antibiotic spacer in place. No acute erosive change is seen. Benign-appearing periostitis is again noted along the distal femoral metaphysis. Bony fragment are present around the joint. There is soft tissue edema around the knee and a small joint effusion. IMPRESSION: 1. Soft tissue swelling with no acute bony abnormality identified. 2. Advanced degenerative/destructive change of the knee as above with an antibiotic spacer in place. 11/12/22 SINGLE VIEW PELVIS; SINGLE VIEW RIGHT HIP; SINGLE VIEW LEFT HIP CLINICAL HISTORY: Bilateral hip pain. FINDINGS: AP views of the pelvis with frog-leg views of the right and left hip are compared to study dated 12/30/2018 and correlated with pelvic CT dated 11/10/2022. The skeletal structures are osteopenic. No acute fracture is seen involving the hips or bony pelvis. A bipolar right hip arthroplasty is in near anatomic alignment. No periprosthetic lucency is identified. Moderate arthritic change and joint space narrowing is seen in the left hip. Mild sclerotic change is noted in the sacroiliac joints. Enthesophytes arise from the anterior superior iliac spines. The overlying soft tissues are within normal limits. IMPRESSION: No acute bony abnormality is identified.
[2022-11-13] MEDS: DICLOFENAC SOD 1% GEL 100 GM TUBE EXT SCH ×2 (09:29→12:26)
[2022-11-13] MEDS: PANTOprazole 40 MG in SYRINGE 0 ML IV SCH (09:29)
[2022-11-13] MEDS: QUEtiapine FUMARATE 100 MG TABLET PO SCH (09:29)
[2022-11-13] MEDS: CYANOCOBALAMIN 1000 MCG/ML VIAL IM SCH (09:30)
[2022-11-13] MEDS: SUCRALFATE 1 GM/10 ML UDC PO SCH ×2 (09:30→12:25)
--- NOTE | 2022-11-13 16:21 | Discharge Summary ---
Date of Service November 13, 2022 Admission HPI Per Admitting Provider Patient is a 62-year-old male with a past medical history of previous CVA, dyspnea on exertion, alcohol abuse, hypertension, tobacco use, chronic pain, PTSD, and GERD presenting to the emergency room via referral from his primary care provider. It seems the past few weeks patient has been experiencing worsening chest pain that is come to the point that is experiencing it at rest. He has never had a heart attack previously. He was recently seen by his rolled ham lacer on 11/09/2022 who recommended getting echocardiogram as well as a dobutamine stress echocardiogram to evaluate for myocardial ischemia. He had seen his primary care provider earlier today who recommended that since his chest pain is getting worse and the rolled ham lacer had already suggested getting all these test done that he should go to the emergency room for evaluation and treatment. Also reports intermittent shortness of breath that occurs with chest pain. Chest pain does not seem to be associated with food. Reports that it does seem to get worse with lying down. Has difficulty with going up a flight of stairs and exercise causing more chest pain shortness of breath. Also has the complaint of worsening pain in his left knee and he explains to me that he had a procedure done in 2020 where he had a knee spacer placed this was to be taken out 2 months after the procedure. Patient reports that he still has it and the procedure is always pushed back due to other conditions. Additionally reports that he had complications from a bariatric surgery that resulted in an abscess on the midline of his abdomen which required drainage and debridement. He has had months of difficulty with wound healing, however, it is much improved than it was initially. Reports smoking 3 cigarettes/day. Admits to prescribed marijuana with last utilization being yesterday. Denies any other recreational drug use. Discharge Data Allergies Allergy/AdvReac Type Severity Reaction Status Date / Time ALL PAIN MEDICATIONS AdvReac Intermediate ITCHING Uncoded 11/10/22 18:59 NON STOP--PRE RX WITH BENADRYL, OK THEN. Consultations 11/10/22 21:43 ED Decision to Admit Stat 11/10/22 23:52 Consult Cardiology Routine 11/11/22 13:38 Consult Gastroenterology Routine 11/13/22 07:34 Consult Pain Management Routine Ordered Studies 11/10/22 18:25 CT abd pelvis IV con only Stat CT angio chest PE protocol Stat 11/13/22 13:48 US venous doppler LE LT Urgent Hospital Course (1) Abdominal pain: I believe his presenting chest/abd symptoms are due to an upper GI source Diff dx - esophagitis vs peptic ulcer vs anastomotic ulcer vs other Risk factors - gastric bypass status; etoh abuse (intermittent); daily double NSAID use (asa + mobic) He has been seeing melena stools for a few months He has had feeding intolerance Plan - * clear liquids only * PPI twice daily * carafate QID * repeat H/H to ensure stability * spoke with Dr Ortega - [facility] - who will consult in am * keep NPO after MN tonight if he needs more urgent EGD (2) Chest pain: no evidence of cardiac cause of chest pain likely upper GI in origin CTA chest negative for etiology tele wnl trops all negative dobutamine stress echo NEGATIVE for ischemia no symptoms to suggest pericarditis no symptoms or signs to suggest biliary tract cause (3) Alcohol abuse: he admits to drinking a large volume of liquor on an intermittent basis suspect this is contributing to #1 above watch for signs of etoh withdrawal (4) Left knee pain: chronic will obtain x-rays in am just saw [facility] orthopedics on 10/25/22 for the L knee (see scanned documents) no intervention to the L knee until abdominal wall issues are resolved last intervention to his left knee - 07/2021 (Dr Gay - [facility] - nonarticulating abx spacer per ortho documentation) (5) Schizophrenia: continue seroquel 100mg BID (6) Tobacco use: (7) Vitamin B12 deficiency: undetectable level ! 2nd to gastric bypass status, very poor dietary intake, etc could be contributing LE weakness start B12 injections -- 1000mcg daily x 7 days then once weekly x 4 weeks, then monthly thereafter indefinitely (8) Iron deficiency: will give venofer 200mg IV x 1 ferritin is low in the 20s c/w poor Fe stores (9) Chronic pain syndrome: per PDMP gets 5mg of oxycodone prescriptions every 2 weeks will stop morphine he is in severe pain - will make slight dose increase to 7.5mg q6h prn (10) Status post gastric bypass for obesity: see discussion above in #1 Plan BPs low-normal - hold amlodipine Discharge Plan Discharge Items Patient Disposition: Home - Home Health Services Reason For Visit: CHEST PAIN Discharge Diagnosis: 1. chest pain - heart attack ruled out; negative stress test 2. suspected stomach and/or esophagus irritation or ulcer causing #1 above - improved with antacids 3. severe vitamin B12 deficiency 4. iron deficiency 5. history of gastric bypass 6. chronic left knee pain - in need of surgery at [facility] [address] 7. chronic abdominal wound Activity: As commented below Activity Comment: activity as tolerated Driving/Machine Use: No driving while using oxycodone pain killer medication Non-emergency contact: Primary Care Provider, Surgeon and Centrifugal Station Operator Call non-emergency contact if: you have any medication questions, your symptoms worsen, your pain is not controlled, your pain is worsening, you have a fever, your wound has increased redness, your wound has increased drainage and your wound pain has increased Follow-up/Referrals: Anthony Ortega MD [Physician] - 11/16/22 10:00 am (2-3 weeks for upper endoscopy ) Gianfranco Diane DO [Primary Care Provider] - 11/20/22 2:00 pm Bucky Gay MD [Outside Practitioners] - (please stay in touch with Dr Gay's office to schedule left knee surgery; I spoke with him and he advised follow-up in 1 month; he is recommending you get your upper endoscopy by gastroenterology FIRST before he will schedule your knee surgery. ) Diet: Bariatric Addtl Attending Provider Instructions: Mr Ramon, You were hospitalized for lower chest pain. You had no evidence of heart attack. You passed your stress test for your heart which makes it unlikely that your pain was due to heart problems. It was suspected your pain was coming from either the esophagus or stomach. You improved quickly with acid reducers. Having a gastric bypass puts you at risk of ulcers and severe irritation of the stomach especially if you are drinking alcohol and/or using anti-inflammatory pills such as meloxicam. Dr Ortega saw you from Gastroenterology and will be performing an upper endoscopy procedure in the near-future to look at your stomach and esophagus. Wound care saw you for your abdominal wound and at this time it appears to be fully healed. Your x-rays of the left knee are similar to old x-rays. Your right hip x-ray shows intact hardware. You have SEVERE vitamin B12 deficiency and also iron deficiency. We gave you iron infusions and B12 shots. I wanted you to have an ultrasound of your left leg due to the swelling you have seen. This ultrasound is checking for DVT blood clots. You had to leave the hospital before it could be checked. This will be important to complete in the near-future. We will have to arrange this for you. Recommendations - 1. please abstain from all forms of alcohol 2. we have increased your oxycodone to 7.5mg every 6 hours as needed; DO NOT DRINK ALCOHOL OR DRIVE A CAR WHILE TAKING NARCOTIC PAIN KILLER MEDICATION 3. you will be receiving vitamin B12 shots at your home over the next few days by home health nursing 4. please take pantoprazole 40mg twice daily every day for your stomach 5. take sucralfate 1 gram three times a day for 7 days for your stomach 6. STOP your aspirin at this time 7. STOP your meloxicam at this time 8. DO NOT take [id number] anti-inflammatories such as motrin, ibuprofen, or naprosyn/alleve 9. tylenol is ok for pain; this does not hurt the stomach 10. OK for voltaren (diclofenac) gel for your left knee up to 4 times a day as needed Pending Studies at Discharge: No Stand-Alone Forms: [facility], Smoking Cessation Medications and DC Order Prescriptions: New pantoprazole 40 mg Tablet,Delayed Release (Dr/Ec) 40 mg PO BID Qty: 60 2RF cyanocobalamin (vitamin B-12) 1,000 mcg/mL Solution 1,000 mcg IM DIRECTED Qty: 10 0RF Rx Instructions: 1000mcg IM x 1 on 11/15/22, 11/16/22, and 11/17/22. Then 1000mcg IM x 1 once a week x 4 weeks. Then 1000mcg IM x 1 once a month thereafter. diclofenac sodium [Voltaren Arthritis Pain] 1 % Gel 4 g EXT QID PRN (Reason: left knee pain) Qty: 1 0RF Rx Instructions: apply to left knee (DME) syringe (disposable) 1 mL syringe See Rx Instructions .Route Qty: 10 0RF Rx Instructions: for use with vitamin B12 injections. sucralfate [Carafate] 1 gram tablet 1 g PO AC 7 Days Qty: 21 0RF Continued acetaminophen 325 mg tablet 650 mg PO Q4H PRN (Reason: Pain) melatonin 3 mg tablet 4.5 mg PO HS PRN (Reason: Sleep) gentamicin 0.1 % ointment 1 applic topical TID Qty: 30 1RF amlodipine 5 mg tablet 5 mg PO DAILY Qty: 90 3RF quetiapine [Seroquel] 100 mg tablet 100 mg PO BID Qty: 60 2RF diphenhydramine HCl [Benadryl] 25 mg Capsule 25 mg PO Q4 PRN (Reason: allergic reaction) Qty: 7 0RF terbinafine HCl 250 mg tablet 250 mg PO UD Changed oxycodone 5 mg tablet 7.5 mg PO Q6H PRN (Reason: left knee pain) 14 Days Qty: 86 0RF Discontinued aspirin 81 mg tablet,delayed release (DR/EC) 81 mg PO DAILY meloxicam 7.5 mg tablet 7.5 mg PO DAILY Qty: 30 2RF Admission Data Admit Date/Time: 11/12/22 16:05 Attending Provider: Gucci Glover Admit Provider: Darrell Shaikh Primary Care Provider: Gianfranco Diane Other Providers: Aron Marcial ; Francois Henao ; Anthony Ortega ; Meli Mccord Other Interventions: Discharge Summary Assessment (RN) Last Done: 11/13/22 15:15 Coding Diagnoses Abdominal pain R10.9 Chest pain R07.9 Alcohol abuse F10.10 Left knee pain M25.562 Schizophrenia F20.9 Tobacco use Z72.0 Vitamin B12 deficiency E53.8 Iron deficiency E61.1 Chronic pain syndrome G89.4 Status post gastric bypass for obesity Z98.84
[2022-11-13] MEDS ORDERED: PANTOprazole 40 MG TAB PO SCH (21:00)
== END 2022-11-13 17:31 | disposition home health service (06) | DRG 384 ==
LOC: ED 16:24 → 2W 16:24 → SUATTDRO 22:22 → 2W 23:33

== ENCOUNTER 2023-03-07 11:24 | Observation (INO) ==
[2023-03-07] MEDS ORDERED: SODIUM CHLORIDE 0.9% 1000ML 1,000 ML IV ONE (12:04)
[2023-03-07] MEDS ORDERED: diphenhydrAMINE 50 MG/ML VIAL IV STA (12:05)
[2023-03-07] MEDS ORDERED: MoRPHine SULFATE 4 MG/ML 1 ML CARP\\VIAL IV STA ×2 (12:05→14:53)
--- NOTE | 2023-03-07 12:08 | Emergency Department Note ---
Impression & Plan Post-op pain, Acute knee pain ED Provider Note NAME: RAMBO LANDEROS AGE: 62 SEX: M : 1960 ARRIVES VIA: Ambulance INFORMANT: Patient ED PROVIDER(S): Larry Armando DO CHIEF COMPLAINT: left knee pain HPI: Patient is a 62-year-old male past medical history of schizophrenia, CVA, PTSD, septic arthritis who presents the ER for left knee pain. He notes that this started post-op after he had a surgery at [facility] [facility] 7 days ago. He had a spacer removed which had been present for several years and had a total knee done. This pain has been gradually getting worse. Pain is focal behind the left knee. Denies any fevers. No trauma. No headache or change in vision. No chest pain or shortness of breath. No nausea, vomiting, or diarrhea. No dysuria, urgency, or frequency. No other exacerbating or remitting factors. Patient also notes that his foot feels numb but it clarifies stating that he can feel you touching it but it just feels a little different. Patient notes that he has not walked for 2 years. PAST MEDICAL HISTORY:See Below PAST SURGICAL HISTORY:See Below FAMILY HISTORY:See Below SOCIAL HISTORY:See Below HOME MEDICATIONS:See Below ALLERGIES:See Below VITALS:See Below PHYSICAL EXAMINATION: GENERAL: Sitting up in bed, alert, well appearing, well nourished, no distress, non-toxic EYE EXAM: normal conjunctiva. OROPHARYNX: no exudate, no erythema, lips, buccal mucosa, and tongue normal and mucous membranes are moist NECK: supple, no nuchal rigidity, no adenopathy, non-tender LUNGS: Clear to auscultation. Normal chest wall mechanics HEART: no murmurs, S1 normal and S2 normal ABDOMEN: abdomen soft, non-tender, normo-active bowel sounds, no masses, no rebound or guarding. BACK: Back is symmetrical on inspection and there is no deformity, no midline tenderness, no CVA tenderness. SKIN: no rashes and no bruising UPPER EXTREMITIES: upper extremities are grossly normal. LOWER EXTREMITIES: Left knee is swollen with dressing in place. Dressing was removed and knee is clean dry and intact. Slaughters are intact. No drainage. No active bleeding. DP and PT 2 out of 4. Gross sensation intact. Significant pain with flexion extension left knee. No tenderness throughout the hip. NEURO EXAM: Normal sensorium, cranial nerves II-XII grossly intact, normal speech, no gross weakness of arms, no gross weakness of legs. MEDICAL DECISION MAKING: Patient is a 62-year-old male who presents ER for above-stated complaint. IV was established blood work was obtained. External records reviewed. Spoke with her surgeon at [facility] who recommended the patient can follow- up as an outpatient if he could manage and redressing the wound with Xeroform gauze and a wrap. Labs show no significant leukocytosis or anemia. BMP with LFTs bilirubin was unremarkable. COVID was negative. Duplex and x-ray were unremarkable. We discussed with the patient and care managers and patient would like to go to [facility] as it had previously been set up but he notes [facility] just sent him home instead. After discussion with the [facility] per our psychiatric care worker patient declined and [facility] initially and want to go home. The rate he would like to go now and consequently we discussed with Dr. Gucci Banda for observation overnight for PT OT and placement tomorrow. He was given IV morphine here. Triage Nursing notes reviewed. Limited review of prior medical records performed Vital Signs: reviewed and remarkable for no significant abnormalities Differential diagnosis: Fracture, subluxation, dislocation, contusion, ligamentous injury, neurovascular, compartment syndrome, rhabdomyolysis, as well as other pathologies. ER treatment provided: See below Diagnostics interpreted by me include EKG and cardiac monitoring as listed b elow: -Cardiac Monitoring: An order was placed for continuous cardiac monitoring. The monitor shows a rate of 72 with sinus rhythm. -ECG: none -Laboratory studies:Interpreted by me as stated above in MDM and shown below. Imaging studies: Xrays: As interpreted by me: X-ray of the left knee shows no acute fracture dislocation CTs show: none Venous duplex was negative Consultation(s): As described in MDM Procedures:none Critical Care: None Past Med/Surg History Medical History (Updated 03/07/23 @ 15:07 by Larry Armando DO) Abdominal wall abscess x 3 yrs per general surgery records - patient reports its resolved. 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 Depression Dislocation, hip, posterior with surgery to put back in place (right hip) x14 Enterocutaneous fistula pt unaware Heroin overdose hx History of blood transfusion 2020 Hx of sleep apnea no problems since the gastric bypass. Hypertension Hypothyroidism states he stopped his medication "a long time ago" TSH 2.4 04/03/22 Inability to ambulate due to left knee uses wheelchair Iron deficiency Narcotic dependence Open abdominal wall wound fully resolved at this time (per patient) PTSD (post-traumatic stress disorder) Pulmonary hypertension RVP 40-50 mmHg 2017 echo Schizophrenia reason for seroquel. Seborrheic dermatitis of scalp Seizure states he was told he had one ~ years ago. does not currently take a ny medication, no problems since Septic arthritis hx Surgical wound, non healing fully resolved (2021) Tobacco use Vitamin B12 deficiency Surgical History H/O abdominal surgery (08/01/22) Incision and debridement of abdominal wound suture sinus, midline incision. History of biliary T-tube placement History of cholecystectomy History of esophagogastroduodenoscopy (EGD) History of gastric bypass History of hernia repair left inguinal hernia repair. R incarcerated inguinal hernia repair 11/22/18: Grade 1 view, MAC 4, ETT 8.0. No postop issues per anesthesia progress note. History of right knee joint replacement History of total right hip arthroplasty Hx of abdominal surgery (04/05/22) Exploration Abdominal Wall Wound, Excision of Abdominal Scar and Chronic Abdominal Wound - Toni Edward DO Hx of foot surgery S/P excision of lipoma Right thigh on 10/13/18 under [facility] with LMA#5 S/P hip replacement right Status post left knee replacement With multiple revisions. Presently with antibiotic spacer in place Family History Other Diabetes Heart disease No family history of adverse response to anesthesia Social History Smoking Status: Current every day smoker Tobacco Type: Cigarettes Cigarettes Per Day: 8; Second Hand Exposure: Yes; Do You Dip or Chew Tobacco: No; Hx Alcohol Use: Yes Alcohol type: hard liquor Hx Substance Use: Yes Prescribed Medications: Marijuana Last Used Substance: Days (ago) Last Used Substance Other:: 04/02/22 - uses THC (former substance user, quit ~2019) Preferred Language: Egyptian Communication Ability: Effective Communication Ability Comment: sedated, speech garbled Visual Impairment: No Limitations Broiler Chef Or Cook Required: No Beliefs That Will Affect Care: None marital status: Current Living Situation: Spouse, Family and Other Current Living Situation Comment: and x2 grandsons How many Children do You have: 1 Feels Safe at Home: Yes Assistive Devices: Brace/Splint/Immobilizer, Cane and Wheelchair Allergies Allergies Allergy/AdvReac Type Severity Reaction Status Date / Time ALL PAIN MEDICATIONS AdvReac Intermediate ITCHING Uncoded 01/25/23 10:14 NON STOP--PRE RX WITH BENADRYL, OK THEN. Home Meds Home Medications Medication Instructions Recorded Confirmed melatonin 3 mg tablet 4.5 mg PO HS PRN Sleep 08/08/21 03/07/23 aspirin 81 mg capsule 81 mg PO BID 12/22/22 03/07/23 Previous Rx's Medication Instructions Recorded diphenhydramine HCl 25 mg capsule 25 mg PO Q4 PRN allergic reaction 07/16/21 (Benadryl) #7 caps amlodipine 5 mg tablet 5 mg PO DAILY #90 tabs 10/30/22 pantoprazole 40 mg tablet,delayed 40 mg PO BID #60 tabs 11/13/22 release syringe with needle 3 mL 25 x 1 #4 ea 11/17/22 1/2" (BD Luer-Debra Syringe) cyanocobalamin (vitamin B-12) 1,000 mcg IM .COMPLEX 6 months #10 12/21/22 1,000 mcg/mL injection solution mL quetiapine 100 mg tablet (Seroquel) 100 mg PO BID #60 tabs 12/25/22 oxycodone 5 mg tablet 7.5 mg PO Q6H PRN left knee pain 8 02/19/23 days #48 tabs Results & Data (ED) Vital Signs Vital Signs - 24 hr 03/07/23 11:30 03/07/23 14:52 03/07/23 14:54 Temperature 36.7 C Temperature Source Oral Pulse Rate 66 70 Respiratory Rate 18 Blood Pressure 134/86 Blood Pressure Mean 102 Pulse Oximetry 100 98 Oxygen Delivery Method Room Air Room Air Sepsis Recent Fever Within 48 Hours No Sepsis New/Unexplained Change in Mental Status No Sepsis Action Taken by Nursing No Action Required 03/07/23 14:51 03/07/23 15:00 03/07/23 15:00 Temperature Temperature Source Pulse Rate 69 70 Respiratory Rate 15 15 Blood Pressure 159/95 H Blood Pressure Mean 116 Pulse Oximetry Oxygen Delivery Method Sepsis Recent Fever Within 48 Hours Sepsis New/Unexplained Change in Mental Status Sepsis Action Taken by Nursing Laboratory Data 03/07/23 13:34 03/07/23 13:34 Lab Results 03/07/23 03/07/23 03/07/23 Range/Units 13:34 13:34 16:00 WBC 5.32 (4.8-10.8) K/ul RBC 3.94 L (4.70-6.10) M/uL Hgb 11.7 L (14.0-18.0) g/dl Hct 35.9 L (42.0-52.0) % MCV 91.1 (80.0-100.0) fL MCH 29.7 (25.0-34.0) pg MCHC 32.6 (32.0-36.0) g/dL RDW Std Deviation 49.9 H (36.4-46.3) fL RDW Coeff of Leatha 14.9 H (11.5-14.5) % Plt Count 481 H (130-400) K/uL MPV 8.9 L (9.4-12.4) fL Immature Gran % (Auto) 0.4 % Neut % (Auto) 60.7 % Lymph % (Auto) 32.5 % Marshall % (Auto) 4.5 % Eos % (Auto) 1.3 % Baso % (Auto) 0.6 % Neut # (Auto) 3.23 (1.40-6.50) K/uL Lymph # (Auto) 1.73 (1.2-3.4) K/uL Marshall # (Auto) 0.24 (0.11-0.59) K/uL Eos # (Auto) 0.07 (0-0.50) K/uL Baso # (Auto) 0.03 (0-0.2) K/uL Immature Gran # (Auto) 0.02 (0.01-0.20) K/uL Sodium 136 (136-145) mmol/L Potassium 4.0 (3.5-5.1) mmol/L Chloride 103 (98-107) mmol/L Carbon Dioxide 27 (21-32) mmol/L Anion Gap 6 (3-11) BUN 13 (6-23) mg/dl Creatinine 1.04 (0.6-1.4) mg/dl Est Cr Clr Drug Dosing Not Reportable Est GFR ( Amer) 90.0 ml/min Est GFR (Non-Af Amer) 77.7 ml/min BUN/Creatinine Ratio 12.5 (10-20) Glucose 100 H (70-99(Fasting)) mg/dl Calcium 9.5 (8.6-10.3) mg/dl Total Bilirubin 0.6 (0.2-1.0) mg/dl AST 17 (13-39) U/L ALT 10 (7-52) U/L Alkaline Phosphatase 84 (34-104) U/L Total Protein 7.9 (6.0-8.3) gm/dl Albumin 3.8 (3.4-5.0) gm/dl Globulin 4.1 H (2.5-4.0) gm/dl Albumin/Globulin Ratio 0.9 (0.9-2) SARS-CoV-2, RNA, NAAT NEGATIVE (NEGATIVE) Administered Medications Discontinued Medications Diphenhydramine HCl (Diphenhydramine 50 Mg/Ml Vial) 25 mg IV NOW STA Stop: 03/07/23 12:06 Last Admin: 03/07/23 13:19 Dose: Not Given Documented By: KRYSTLE Diphenhydramine HCl (Diphenhydramine 50 Mg/Ml Vial) 50 mg IM NOW STA Stop: 03/07/23 13:14 Last Admin: 03/07/23 13:19 Dose: 50 mg Documented By: KRYSTLE Sodium Chloride (Nss 1000ml) 1,000 mls @ 999 mls/hr IV .Q1H1M ONE Stop: 03/07/23 13:04 Last Infusion: 03/07/23 16:00 Dose: 0 mls/hr Documented By: Admin: 03/07/23 14:53 Dose: 999 mls/hr Documented By: KRYSTLE Morphine Sulfate (Morphine Sulfate 4 Mg/Ml 1 Ml Carp\\Vial) 4 mg IV NOW STA Stop: 03/07/23 12:06 Last Admin: 03/07/23 13:20 Dose: Not Given Documented By: KRYSTLE Morphine Sulfate (Morphine Sulfate 4 Mg/Ml 1 Ml Carp\\Vial) 4 mg IM NOW STA Stop: 03/07/23 13:14 Last Admin: 03/07/23 13:19 Dose: 4 mg Documented By: KRYSTLE Morphine Sulfate (Morphine Sulfate 4 Mg/Ml 1 Ml Carp\\Vial) 4 mg IV NOW STA Stop: 03/07/23 14:54 Last Admin: 03/07/23 14:57 Dose: 4 mg Documented By: KRYSTLE Imaging Data Radiologist's Impression: Knee X-Ray 03/07/23 12:04 XR knee LT 1 or 2V routine CLINICAL HISTORY: l knee pain TECHNIQUE: 2 views of the left knee were obtained. Comparison: Comparison is made to knee radiographs 11/12/2022 FINDINGS: Patient is status post total knee arthroplasty with expected postsurgical changes including soft tissue swelling and subcutaneous emphysema. No periarticular lucency or hardware fracture is seen. IMPRESSION: Expected postoperative appearance status post placement of total knee arthropl asty. ACT 112: Negative or not required by law. Electronically signed by: Barry Nair M.D. 03/07/2023 2:55 PM Venous Doppler Study 03/07/23 12:04 ULTRASOUND LEFT LOWER EXTREMITY VENOUS CLINICAL HISTORY: Left leg pain. COMPARISON STUDY: Left lower extremity venous ultrasound dated 07/15/2021. TECHNIQUE: Real-time, grayscale, and color Doppler sonography of the deep veins of the left lower extremity was performed from the inguinal crease to the calf. Compression and augmentation were utilized. FINDINGS: There is no sonographic evidence of deep venous thrombosis identified in the left lower extremity. The common femoral, superficial femoral, and popliteal veins are patent and normally compressible. The greater saphenous vein and the profunda femoris vein at the junction with the common femoral vein are clear. The visualized calf veins are patent. IMPRESSION: There is no sonographic evidence of deep venous thrombosis identified in the left lower extremity. ACT 112: Negative or not required by law. Electronically signed by: Juan Panda M.D. 03/07/2023 2:16 PM Discharge Plan Visit Data Chief Complaint: Foot Injury/Pain Stated Complaint: L KNEE PAIN, ED Provider: Armando,Larry M Discharge Problem: Post-op pain, Acute knee pain Patient Disposition: Home - Self-Care Discharge Instructions [place]/Other Patient Handouts: ED Post Op Wound Check, Pain Activity Restrictions/Additional Instructions: Please follow up with your primary care doctor with in the next 24 hours. Any worsening of your symptoms, please return to the ED immediately. This includes any fevers greater than 100.4, worsening pain, chest pain, shortness breath, persistent nausea, vomiting, unable to eat or drink, redness, swelling or drainage from her knee, or any other concerning signs or symptoms from your standpoint. You were found to have a blood pressure greater than 120 systolic over 90 diastolic. Due to the new Medicare guidelines, we are now recommending that you follow up with your primary care doctor in regards to this elevated blood pressure. Forms Stand Alone Forms: [facility], [facility] Emergency Department, Important Visit Information Prescriptions Prescriptions: No Action melatonin 3 mg tablet 4.5 mg PO HS PRN (Reason: Sleep) (DME) BD Luer-Debra Syringe 3 mL 25 x 1 1/2 " syringe See Rx Instructions .Route Qty: 4 0RF Rx Instructions: inject B12 once weekly for 4 weeks cyanocobalamin (vitamin B-12) 1,000 mcg/mL solution 1,000 mcg IM .COMPLEX 180 Days Qty: 10 0RF Rx Instructions: 1,000 mcg intramuscularly monthly; quetiapine [Seroquel] 100 mg tablet 100 mg PO BID Qty: 60 2RF oxycodone 5 mg tablet 7.5 mg PO Q6H PRN (Reason: left knee pain) 8 Days Qty: 48 0RF amlodipine 5 mg tablet 5 mg PO DAILY Qty: 90 3RF diphenhydramine HCl [Benadryl] 25 mg Capsule 25 mg PO Q4 PRN (Reason: allergic reaction) Qty: 7 0RF pantoprazole 40 mg Tablet,Delayed Release (Dr/Ec) 40 mg PO BID Qty: 60 2RF aspirin 81 mg Capsule 81 mg PO BID Referrals Referrals: Gianfranco Diane DO [Primary Care Provider] -
[2023-03-07] MEDS ORDERED: diphenhydrAMINE 50 MG/ML VIAL IM STA (13:13)
[2023-03-07] MEDS ORDERED: MoRPHine SULFATE 4 MG/ML 1 ML CARP\\VIAL IM STA (13:13)
--- NOTE | 2023-03-07 14:17 | Ultrasound Report ---
ULTRASOUND LEFT LOWER EXTREMITY VENOUS CLINICAL HISTORY: Left leg pain. COMPARISON STUDY: Left lower extremity venous ultrasound dated 07/15/2021. TECHNIQUE: Real-time, grayscale, and color Doppler sonography of the deep veins of the left lower ext remity was performed from the inguinal crease to the calf. Compression and augmentation were utilized . FINDINGS: There is no sonographic evidence of deep venous thrombosis identified in the left lower ext remity. The common femoral, superficial femoral, and popliteal veins are patent and normally compress ible. The greater saphenous vein and the profunda femoris vein at the junction with the common femora l vein are clear. The visualized calf veins are patent. IMPRESSION: There is no sonographic evidence of deep venous thrombosis identified in the left lower e xtremity. ACT 112: Negative or not required by law. Electronically signed by: Juan Panda M.D. 03/07/2023 2:16 PM
[2023-03-07 14:27] LABS: Basophils # (auto) 0.03 K/uL (0-0.2); Basophils % (auto) 0.6 %; Eosinophils # (auto) 0.07 K/uL (0-0.50); Eosinophils % (auto) 1.3 %; Hematocrit (blood only) 35.9 % (42.0-52.0); Hemoglobin 11.7 g/dl (14.0-18.0); Immature Granulocytes # (auto) 0.02 K/uL (0.01-0.20); Immature Granulocytes % (auto) 0.4 %; Lymphocytes # (auto) 1.73 K/uL (1.2-3.4); Lymphocytes % (auto) 32.5 %; Mean Corpuscular Hemoglobin 29.7 pg (25.0-34.0); Mean Corpuscular Hgb Conc 32.6 g/dL (32.0-36.0); Mean Corpuscular Volume 91.1 fL (80.0-100.0); Mean Platelet Volume 8.9 fL (9.4-12.4); Monocytes # (auto) 0.24 K/uL (0.11-0.59); Monocytes % (auto) 4.5 %; Neutrophils # (auto) 3.23 K/uL (1.40-6.50); Neutrophils % (auto) 60.7 %; Platelet Count 481 K/uL (130-400); RDW Coefficient of Variation 14.9 % (11.5-14.5); RDW Standard Deviation 49.9 fL (36.4-46.3); Red Blood Count 3.94 M/uL (4.70-6.10); White Blood Count 5.32 K/ul (4.8-10.8)
[2023-03-07 14:30] LABS: Alanine Aminotransferase 10 U/L (7-52); Albumin Globulin Ratio 0.9 (0.9-2); Albumin Level 3.8 gm/dl (3.4-5.0); Alkaline Phosphatase 84 U/L (34-104); Anion Gap 6 (3-11); Aspartate Aminotransferase 17 U/L (13-39); BUN Creatinine Ratio 12.5 (10-20); Bilirubin,Total 0.6 mg/dl (0.2-1.0); Blood Urea Nitrogen 13 mg/dl (6-23); Calcium 9.5 mg/dl (8.6-10.3); Carbon Dioxide 27 mmol/L (21-32); Chloride 103 mmol/L (98-107); Est GFR (Non-African American) 77.7 ml/min; Globulin 4.1 gm/dl (2.5-4.0); Glucose 100 mg/dl (70-99(Fasting)); Sodium 136 mmol/L (136-145); Total Protein 7.9 gm/dl (6.0-8.3)
--- NOTE | 2023-03-07 14:56 | XRay Report ---
XR knee LT 1 or 2V routine CLINICAL HISTORY: l knee pain TECHNIQUE: 2 views of the left knee were obtained. Comparison: Comparison is made to knee radiographs 11/12/2022 FINDINGS: Patient is status post total knee arthroplasty with expected postsurgical changes including soft tiss ue swelling and subcutaneous emphysema. No periarticular lucency or hardware fracture is seen. IMPRESSION: Expected postoperative appearance status post placement of total knee arthroplasty. ACT 112: Negative or not required by law. Electronically signed by: Barry Nair M.D. 03/07/2023 2:55 PM
--- NOTE | 2023-03-07 16:02 | History & Physical Report ---
Date of Service March 07, 2023 Assessment & Plan (1) Post-op pain: Plan: -Admit to med/surge -Currently stable -Patient is S/P antibiotic spacer removal and revision of left total knee arthropathy at [facility] [place] on 02/26 -Was discharged home but has been in too much pain to ambulate safely -Xray of the left knee and venous doppler of the LLE were both negative for abnormalities today -No sign of acute infection as he is without a leukocytosis or significant swe lling or drainage from the knee -Pain control with the following: >Tylenol q6h scheduled >Oxycodone IR: 7.5 mg PO q6h prn pain 4+ >Gabapentin: 100 mg PO BID for neuropathic pain (New on admission, titrate up as needed) -Would avoid IV narcotics on this patient has he has a prior hx of IV drug use and is requesting IV benadryl to be given with IV narcotics, which is concerning for pain seeking behavior. Will continue adjust his oral regimen as needed for adequate pain management -PT/OT consults placed, case management consult placed -BL SCD's and 81 mg Aspirin BID as prescribed by ortho at [facility] for DVT PPX -AM CBC and BMP -HH diet (2) Status post left knee replacement: Plan: -Continue BID aspirin for DVT PPX -Will continue BID Doxycycline ordered by his orthopedic team for a total of 6 weeks treatment for infection prevention (3) Schizophrenia: Plan: -Continue BID Seroquel (4) Insomnia: Plan: -HS melatonin (5) Chronic GERD: Plan: -Continue BID pantoprazole (6) Tobacco abuse: Plan: -Declined nicotine patch -Continue to stress the importance of cessation Plan The patient was discussed with Dr. Banda at the time of the admission History of Present Illness Chief Complaint: Left knee pain Primary Care Provider: Gianfranco Diane DO Aiden is a 62 yr old male with a PMH significant for recent antibiotic spacer removal and total left knee revision replacement at [facility] last week, JENNIFER not on HS CPAP, HTN, previous tobacco abuse, IVDU and alcohol abuse, DM II, and previous CVA who presented to the [facility] ED on 03/07/23 with a chief complaint of left knee pain. Per the ED staff, the patient was recommended to be discharged to [facility] from [facility] last week but he refused and was subsequently discharged home. Since being home he has been unable to tolerate his pain and will now need placement. In the ED vitals were stable. Labs including CBC and CMP were WNL. Xray of the left knee showed expected post-surgical changes and left LE venous doppler was negative for DVT. We were asked to admit the patient for PT/OT and placement. Prior to admission the patient was given a total of 12 mg IV morphine, 75 mg IV benadryl, and 1L NSS. At the time of the exam the patient was sitting in bed in no acute distress. He tells me there was a confusion at [facility] and they sent him home instead of going to [facility] for rehab. Since being home he has been unable to ambulate safely due to left knee pain, he denies any falls since discharge. He has been dealing with a sharp/stabbing pain in the left leg/knee which starts on the medical aspect of the left knee and moves distally. He was using 7.5 mg PO oxycodone q6h without relief, he would like to go to rehab to help build his strength. He tells me that [facility] was giving him a dose of IV dilaudid in the middle of the day along with PO oxy for pain, which seemed to help. I explained that we want to try and avoid IV narcotics as he will need to be on an oral regimen for discharge to rehab, he expressed understanding. He states that he needs benadryl for IV narcotics as they make him itchy. He denies recent alcohol or drug use but is smoking approximately 3/4 of a pack per day, he denies the need for a nicotine patch. He states that he was taken off metformin after losing a substantial amount of weight and is no longer diabetic. He is a full code and wishes for his to make medical decisions for him if he cannot make them himseld. Please refer to Dr. Banda's attestation for any changes to the treatment plan Allergies Allergy/AdvReac Type Severity Reaction Status Date / Time ALL PAIN MEDICATIONS AdvReac Intermediate ITCHING Uncoded 01/25/23 10:14 NON STOP--PRE RX WITH BENADRYL, OK THEN. Home Medications Medication Instructions Recorded Confirmed Type diphenhydramine HCl 25 mg capsule 25 mg PO Q4 PRN allergic reaction 07/16/21 03/07/23 Rx (Benadryl) #7 caps melatonin 3 mg tablet 4.5 mg PO HS PRN Sleep 08/08/21 03/07/23 History amlodipine 5 mg tablet 5 mg PO DAILY #90 tabs 10/30/22 03/07/23 Rx pantoprazole 40 mg tablet,delayed 40 mg PO BID #60 tabs 11/13/22 03/07/23 Rx release syringe with needle 3 mL 25 x 1 #4 ea 11/17/22 01/25/23 Rx 1/2" (BD Luer-Debra Syringe) cyanocobalamin (vitamin B-12) 1,000 mcg IM .COMPLEX 6 months #10 12/21/22 03/07/23 Rx 1,000 mcg/mL injection solution mL aspirin 81 mg capsule 81 mg PO BID 12/22/22 03/07/23 History quetiapine 100 mg tablet (Seroquel) 100 mg PO BID #60 tabs 12/25/22 03/07/23 Rx oxycodone 5 mg tablet 7.5 mg PO Q6H PRN left knee pain 8 02/19/23 03/07/23 Rx days #48 tabs Past Med/Surg History Medical History (Updated 03/07/23 @ 16:54 by Sergey Culp PA-C) Abdominal wall abscess x 3 yrs per general surgery records - patient reports its resolved. Acquired absence of knee joint following explantation of joint prosthesis with presence of antibiotic-impregnated cement spacer Acquired hand deformity Right hand Alcohol abuse Anemia pt unaware Auditory hallucinations Borderline diabetes pt denies Cavitary lesion of lung Chronic GERD Chronic pain Chronic pain of left knee Chronic pain syndrome Cirrhosis, alcoholic CKD (chronic kidney disease) pt denies CVA (cerebral vascular accident) pt denies -- states it was a TIA in 2005. Depression Dislocation, hip, posterior with surgery to put back in place (right hip) x14 Enterocutaneous fistula pt unaware Heroin overdose hx History of blood transfusion 2020 Hx of sleep apnea no problems since the gastric bypass. Hypertension Hypothyroidism states he stopped his medication "a long time ago" TSH 2.4 04/03/22 Inability to ambulate due to left knee uses wheelchair Iron deficiency Narcotic dependence Open abdominal wall wound fully resolved at this time (per patient) PTSD (post-traumatic stress disorder) Pulmonary hypertension RVP 40-50 mmHg 2017 echo Schizophrenia reason for seroquel. Seborrheic dermatitis of scalp Seizure states he was told he had one ~2018/2019 years ago. does not currently take any medication, no problems since Septic arthritis hx Surgical wound, non healing fully resolved (2021) Tobacco use Vitamin B12 deficiency Surgical History (Updated 03/07/23 @ 16:54 by Sergey Culp PA-C) H/O abdominal surgery (08/01/22) Incision and debridement of abdominal wound suture sinus, midline incision. History of biliary T-tube placement History of cholecystectomy History of esophagogastroduodenoscopy (EGD) History of gastric bypass History of hernia repair left inguinal hernia repair. R incarcerated inguinal hernia repair 11/22/18: Grade 1 view, MAC 4, ETT 8.0. No postop issues per anesthesia progress note. History of right knee joint replacement History of total right hip arthroplasty Hx of abdominal surgery (04/05/22) Exploration Abdominal Wall Wound, Excision of Abdominal Scar and Chronic Abdominal Wound - Toni Edward DO Hx of foot surgery S/P excision of lipoma Right thigh on 10/13/18 under [facility] with LMA#5 S/P hip replacement right Status post left knee replacement With multiple revisions. Presently with antibiotic spacer in place Family History Other Diabetes Heart disease No family history of adverse response to anesthesia Social History Smoking Status: Current every day smoker Tobacco Type: Cigarettes Cigarettes Per Day: 8; Second Hand Exposure: Yes; Do You Dip or Chew Tobacco: No; Hx Alcohol Use: No Hx Substance Use: Yes Prescribed Medications: Marijuana Last Used Substance: Days (ago) Last Used Substance Other:: patient states they smoke an ounce of marijuana a week Preferred Language: Irish Communication Ability: Effective Communication Ability Comment: sedated, speech garbled Visual Impairment: No Limitations Jewelsmith Required: No Beliefs That Will Affect Care: None marital status: Current Living Situation: Spouse and Other Current Living Situation Comment: two grandsons How many Children do You have: 1 Feels Safe at Home: Yes Safety Concerns: Feels Safe At This Time Assistive Devices: Walker and Wheelchair Physical Exam Physical Exam: Physical Exam: General: In no acute distress, stated age, non-toxic appearing HEENT: Normocephalic, atraumatic, no scleral icterus, pupils around round, symmetrical, and reactive to light, moist mucus membranes, trachea midline, no thyromegaly Chest/Pulm: No respiratory distress, symmetrical chest expansion, clear breath sounds throughout Cardiac: RRR, no murmurs noted Abdomen: Negative for ascites and bruising, normoactive bowel sounds, soft, non-tender to palpation throughout Musculoskeletal: Patient with large, well-healing scar with jitendra in place running from the proximal knee to the distal left knee, patient with decreased ROM of the left knee due to pain, no crepitus or acute trauma noted on the left LE on inspection and palpation Extremities: Radial, dorsalis pedis, and posterior tibial pulses are intact and symmetrical, no edema noted in the BL LE's Skin: Warm, dry, no rashes , lesions, or scars noted Neuro: Alert and oriented to person, place, month, year, and president, no focal defects, CN II-XII tested and intact, no tremors noted Psych: No acute distress, calm and cooperative during the exam Results & Data Results & Data Vital Signs (Past 12 Hours) Vital Signs Temp Pulse Resp BP Pulse Ox O2 Del Method 03/07/23 15:00 70 15 03/07/23 15:00 159/95 H 03/07/23 14:51 69 15 03/07/23 14:54 98 Room Air 03/07/23 14:52 70 03/07/23 11:30 36.7 C 66 18 134/86 100 Room Air Laboratory Results Abnormal lab results 03/07/23 03/07/23 Range/Units 13:34 13:34 RBC 3.94 L (4.70-6.10) M/uL Hgb 11.7 L (14.0-18.0) g/dl Hct 35.9 L (42.0-52.0) % RDW Std Deviation 49.9 H (36.4-46.3) fL RDW Coeff of Leatha 14.9 H (11.5-14.5) % Plt Count 481 H (130-400) K/uL MPV 8.9 L (9.4-12.4) fL Glucose 100 H (70-99(Fasting)) mg/dl Globulin 4.1 H (2.5-4.0) gm/dl Diagnostic Findings Knee X-Ray 03/07/23 12:04 XR knee LT 1 or 2V routine CLINICAL HISTORY: l knee pain TECHNIQUE: 2 views of the left knee were obtained. Comparison: Comparison is made to knee radiographs 11/12/2022 FINDINGS: Patient is status post total knee arthroplasty with expected postsurgical changes including soft tissue swelling and subcutaneous emphysema. No periarticular lucency or hardware fracture is seen. IMPRESSION: Expected postoperative appearance status post placement of total knee arthroplasty. ACT 112: Negative or not required by law. Electronically signed by: Barry Nair M.D. 03/07/2023 2:55 PM Venous Doppler Study 03/07/23 12:04 ULTRASOUND LEFT LOWER EXTREMITY VENOUS CLINICAL HISTORY: Left leg pain. COMPARISON STUDY: Left lower extremity venous ultrasound dated 07/15/2021. TECHNIQUE: Real-time, grayscale, and color Doppler sonography of the deep veins of the left lower extremity was performed from the inguinal crease to the calf. Compression and augmentation were utilized. FINDINGS: There is no sonographic evidence of deep venous thrombosis identified in the left lower extremity. The common femoral, superficial femoral, and popliteal veins are patent and normally compressible. The greater saphenous vein and the profunda femoris vein at the junction with the common femoral vein are clear. The visualized calf veins are patent. IMPRESSION: There is no sonographic evidence of deep venous thrombosis identified in the left lower extremity. ACT 112: Negative or not required by law. Electronically signed by: Juan Panda M.D. 03/07/2023 2:16 PM Code Status & VTE Plan Code Status Full code VTE Prophylaxis Plan VTE Prophylaxis will be ordered: Yes Supervising Physician Co-Signing Physician Notes I personally saw and examined the patient. I verified all umanzor points and agree with Sergey Culp PA-C with the following exceptions and/or additions: 62 year old male presents to the ER due to knee pain following his recent operation and requesting rehabilitation. Reportedly was supposed to be discharged for rehab from [place] but patient refused. Now requesting rehabilitation. O/E HS RRR, Chest CTAB, Abdo SNT, Left knee is swollen, Surgical wound with jitendra still in place. Clean/Dry/intact. A/P Post operative pain and ambulatory dysfunction - discussed with his RN to redress surgical wound as dressing removed in ER. Advised patient to bring in knee immobilizer from home but can use one on bailey temporarily. PT/OT, plan for rehab. Avoid IV narcotics - if requiring this he should be going back to the hospital that performed his surgery. Agree with trial of gabapentin to see if this helps. Can also increase oxycodone to 10mg. Toradol added PRN. Will need to contact orthopedics tomorrow regarding post operative management staple removal. PG Care Time/CCT Total # of Minutes Spent Total Time Spent with Patient: Total time spent is greater than 50% in coordination of care (as documented) at patient's floor/unit and/or counseling patient: Coding [place] [address] INT INP/OBS CARE 2/55MIN Patient Type Established Medical Decision Making Moderate Complexity Diagnoses Post-op pain G89.18 Status post left knee replacement Z96.652 Schizophrenia F20.9 Insomnia G47.00 Chronic GERD K21.9 Tobacco abuse Z72.0
[2023-03-07] MEDS ORDERED: oxyCODONE HCL IR 5 MG TAB (IMMEDIATE RELEASE) PO STA (16:33)
[2023-03-07] MEDS ORDERED: ACETAMINOPHEN 325 MG TAB PO STA (16:34)
[2023-03-07] MEDS ORDERED: GABAPENTIN 250 MG/5 ML 470 ML BTL PO STA (16:46)
[2023-03-07] MEDS ORDERED: oxyCODONE HCL IR 5 MG TAB (IMMEDIATE RELEASE) PO PRN (18:30)
[2023-03-07] MEDS ORDERED: MELATONIN 3 MG TAB PO PRN (18:30)
[2023-03-07] MEDS: ACETAMINOPHEN 325 MG TAB PO SCH (19:51)
[2023-03-07] MEDS: KETOROLAC TROMETHAMINE 15 MG/ML VIAL IV PRN (19:52)
[2023-03-07] MEDS ORDERED: ENOXAPARIN INJ 40 MG/0.4 ML SYR SQ SCH (21:00)
[2023-03-07] MEDS: oxyCODONE HCL IR 5 MG TAB (IMMEDIATE RELEASE) PO PRN (23:00)
[2023-03-07] MEDS: ASPIRIN 81 MG ECTAB PO SCH (23:00)
[2023-03-07] MEDS: QUEtiapine FUMARATE 100 MG TABLET PO SCH (23:00)
[2023-03-07] MEDS: PANTOprazole 40 MG TAB PO SCH (23:00)
[2023-03-07] MEDS: DOXYCYCLINE HYCLATE 100 MG CAP PO SCH (23:00)
[2023-03-08] MEDS: KETOROLAC TROMETHAMINE 15 MG/ML VIAL IV PRN ×3 (02:54→16:09)
[2023-03-08] MEDS: ACETAMINOPHEN 325 MG TAB PO SCH ×4 (02:55→16:08)
[2023-03-08] MEDS: oxyCODONE HCL IR 5 MG TAB (IMMEDIATE RELEASE) PO PRN ×3 (05:11→17:13)
[2023-03-08 06:46] LABS: Basophils # (auto) 0.03 K/uL (0-0.2); Basophils % (auto) 0.5 %; Eosinophils # (auto) 0.18 K/uL (0-0.50); Eosinophils % (auto) 3.2 %; Hematocrit (blood only) 30.6 % (42.0-52.0); Hemoglobin 10.1 g/dl (14.0-18.0); Immature Granulocytes # (auto) 0.01 K/uL (0.01-0.20); Immature Granulocytes % (auto) 0.2 %; Lymphocytes # (auto) 2.78 K/uL (1.2-3.4); Lymphocytes % (auto) 49.2 %; Mean Corpuscular Volume 90.8 fL (80.0-100.0); Mean Platelet Volume 8.7 fL (9.4-12.4); Monocytes % (auto) 5.3 %; Neutrophils # (auto) 2.35 K/uL (1.40-6.50); Neutrophils % (auto) 41.6 %; Platelet Count 430 K/uL (130-400); RDW Coefficient of Variation 15.2 % (11.5-14.5); RDW Standard Deviation 50.3 fL (36.4-46.3); Red Blood Count 3.37 M/uL (4.70-6.10); White Blood Count 5.65 K/ul (4.8-10.8)
[2023-03-08 07:05] LABS: BUN Creatinine Ratio 15.5 (10-20); Calcium 8.7 mg/dl (8.6-10.3); Creatinine Clr Calc Pharmacy 69.2 ml/min; Est GFR (African American) 61.8 ml/min; Est GFR (Non-African American) 53.3 ml/min; Potassium 4.2 mmol/L (3.5-5.1)
[2023-03-08] MEDS ORDERED: amLODIPine BESYLATE 5 MG TAB PO SCH (09:00)
[2023-03-08] MEDS: QUEtiapine FUMARATE 100 MG TABLET PO SCH (09:34)
[2023-03-08] MEDS: ASPIRIN 81 MG ECTAB PO SCH (09:35)
[2023-03-08] MEDS: DOXYCYCLINE HYCLATE 100 MG CAP PO SCH (09:35)
[2023-03-08] MEDS: PANTOprazole 40 MG TAB PO SCH (09:36)
--- NOTE | 2023-03-08 12:54 | Hospitalist Progress Note ---
Date of Service March 08, 2023 Assessment & Plan (1) Post-op pain: Plan: -Patient is S/P antibiotic spacer removal and revision of left total knee arthropathy at [facility] [place] on 02/26 -Was discharged home but has been in too much pain to ambulate safely . He has bee wheelchair bound since 2020 while dealing with his chronically infected knee with pain -Xray of the left knee and venous doppler of the LLE were both negative for abnormalities on admission -No sign of acute infection as he is without a leukocytosis or significant swelling or drainage from the knee -continue Pain control with the following: >Tylenol q6h scheduled >Oxycodone IR 10mg >Gabapentin: 100 mg PO BID for neuropathic pain (New on admission, titrate up as needed) -Would avoid IV narcotics on this patient has he has a prior hx of IV drug use and is requesting IV benadryl to be given with IV narcotics, which is concerning for pain seeking behavior. Will continue adjust his oral regimen as needed for adequate pain management -PT/OT consults placed, case management consult placed -BL SCD's and 81 mg Aspirin BID as prescribed by ortho at [facility] for DVT PPX -AM CBC and BMP - diet (2) Status post left knee replacement: Plan: -Continue BID aspirin for DVT PPX -Will continue BID Doxycycline ordered by his orthopedic team for a total of 6 weeks treatment for infection prevention (3) Schizophrenia: Plan: -Continue BID Seroquel (4) Insomnia: Plan: -HS melatonin (5) Chronic GERD: Plan: -Continue BID pantoprazole (6) Tobacco abuse: Plan: -Declined nicotine patch -Continue to stress the importance of cessation Plan The patient was discussed with Dr. Banda at the time of the admission Admission and Anticipated Discharge Date Admission Date: March 07, 2023 Subjective Pain in knee 03/17. No other concerns. Physical Exam Constitutional: WD/WN, vitals as above Respiratory: normal respiratory effort, lungs clear to auscultation Cardiovascular: RRR, no murmur, no edema Musculoskeletal: Extremities: + extremities abnormal to inspection (LLE in knee immobilizer) Results & Data Results & Data Vital Signs (Past 12 Hours) Vital Signs Temp Pulse Resp BP Pulse Ox O2 Del Method 03/08/23 07:35 36.5 C 56 L 16 113/74 100 Room Air Laboratory Results CBC, BMP reviewed PG Care Time/CCT Total # of Minutes Spent Total Time Spent with Patient: Total time spent is greater than 50% in coordination of care (as documented) at patient's floor/unit and/or counseling patient: Coding Diagnoses Post-op pain G89.18 Status post left knee replacement Z96.652 Schizophrenia F20.9 Insomnia G47.00 Chronic GERD K21.9 Tobacco abuse Z72.0
--- NOTE | 2023-03-08 16:37 | Discharge Summary ---
Discharge Summary Date of Service March 08, 2023 Notes For Next Care Provider Medication Changes From Visit Increased oxycodone to 10mg po q6h prn pain Admission HPI Per Admitting Provider Aiden is a 62 yr old male with a PMH significant for recent antibiotic spacer removal and total left knee revision replacement at [facility] last week, JENNIFER not on HS CPAP, HTN, previous tobacco abuse, IVDU and alcohol abuse, DM II, and previous CVA who presented to the [facility] ED on 03/07/23 with a chief complaint of left knee pain. Per the ED staff, the patient was recommended to be discharged to [facility] from [facility] last week but he refused and was subsequently discharged home. Since being home he has been unable to tolerate his pain and will now need placement. In the ED vitals were stable. Labs including CBC and CMP were WNL. Xray of the left knee showed expected post-surgical changes and left LE venous doppler was negative for DVT. We were asked to admit the patient for PT/OT and placement. Prior to admission the patient was given a total of 12 mg IV morphine, 75 mg IV benadryl, and 1L NSS. At the time of the exam the patient was sitting in bed in no acute distress. He tells me there was a confusion at [facility] and they sent him home instead of going to [facility] for rehab. Since being home he has been unable to ambulate safely due to left knee pain, he denies any falls since discharge. He has been dealing with a sharp/stabbing pain in the left leg/knee which starts on the medical aspect of the left knee and moves distally. He was using 7.5 mg PO oxycodone q6h without relief, he would like to go to rehab to help build his strength. He tells me that [facility] was giving him a dose of IV dilaudid in the middle of the day along with PO oxy for pain, which seemed to help. I explained that we want to try and avoid IV narcotics as he will need to be on an oral regimen for discharge to rehab, he expressed understanding. He states that he needs benadryl for IV narcotics as they make him itchy. He denies recent alcohol or drug use but is smoking approximately 3/4 of a pack per day, he denies the need for a nicotine patch. He states that he was taken off metformin after losing a substantial amount of weight and is no longer diabetic. He is a full code and wishes for his to make medical decisions for him if he cannot make them himseld. Please refer to Dr. Banda's attestation for any changes to the treatment plan Principal Dx & Hospital Course #1 = Principal Diagnosis (1) Post-op pain: -Patient is S/P antibiotic spacer removal and revision of left total knee arthropathy at [facility] on 02/26 -Was discharged home but has been in too much pain to ambulate safely . He has been wheelchair bound since 2020 while dealing with his chronically infected knee with pain -Xray of the left knee and venous doppler of the LLE were both negative for abnormalities on admission -No sign of acute infection as he is without a leukocytosis or significant swelling or drainage from the knee -continue Pain control with the following: >Tylenol q6h scheduled >Oxycodone IR 10mg po q6h -PT/OT consults placed, case management consult placed -he does not meet criteria for rehab placement as he is able to do his usual wheelchair transfers Needs to go home with home health -BL SCD's and 81 mg Aspirin BID as prescribed by ortho at [facility] for DVT PPX -increased dose of oxycodone for pain on discharge (2) Status post left knee replacement: -Continue BID aspirin for DVT PPX -Will continue BID Doxycycline ordered by his orthopedic team for a total of 6 weeks treatment for infection prevention (3) Schizophrenia: -Continue BID Seroquel (4) Insomnia: -HS melatonin (5) Chronic GERD: -Continue BID pantoprazole (6) Tobacco abuse: -Declined nicotine patch [place] mild elevation from baseline--> encourage hydration follow BMP as outpt Plan Dispo-dc to home with home health Discharge Exam Constitutional WD/WN, vitals as above Respiratory normal respiratory effort, lungs clear to auscultation Cardiovascular RRR, no murmur, no edema Musculoskeletal Extremities: + extremities abnormal to inspection (LLE in knee immobilizer) Updated Medication List Medication Instructions Recorded Confirmed Type diphenhydramine HCl 25 mg capsule 25 mg PO Q4 PRN allergic reaction 07/16/21 03/07/23 Rx (Benadryl) #7 caps melatonin 3 mg tablet 4.5 mg PO HS PRN Sleep 08/08/21 03/07/23 History amlodipine 5 mg tablet 5 mg PO DAILY #90 tabs 10/30/22 03/07/23 Rx pantoprazole 40 mg tablet,delayed 40 mg PO BID #60 tabs 11/13/22 03/07/23 Rx release syringe with needle 3 mL 25 x 1 #4 ea 11/17/22 01/25/23 Rx 1/2" (BD Luer-Debra Syringe) cyanocobalamin (vitamin B-12) 1,000 mcg IM .COMPLEX 6 months #10 12/21/22 03/07/23 Rx 1,000 mcg/mL injection solution mL aspirin 81 mg capsule 81 mg PO BID 12/22/22 03/07/23 History quetiapine 100 mg tablet (Seroquel) 100 mg PO BID #60 tabs 12/25/22 03/07/23 Rx oxycodone 5 mg tablet 7.5 mg PO Q6H PRN left knee pain 8 02/19/23 03/07/23 Rx days #48 tabs doxycycline hyclate 100 mg capsule 100 mg PO BID 03/08/23 03/08/23 History oxycodone 5 mg tablet 10 mg PO Q6H PRN pain #56 tabs 03/08/23 Rx Hospital Stay Data Consultations 03/07/23 15:59 ED Decision to Admit Stat Diagnostic Imagining Performed 03/07/23 12:04 US venous doppler LE LT Stat Pending Results Patient Have Any Pending Studies at Discharge: No Discharge Instructions Given to Patient (Per Discharging Provider) You will be set up with home health to help you get your strength back with walking. Continue taking the doxycycline antibiotic. Follow up with your Orthopedic Surgeon as planned. Total Time Total Time Spent Total Time Spent (In Minutes): 40 min Coding Level of Care Code INP/OBS EV SAME DAY LV 2,70MIN Diagnoses Post-op pain G89.18 Status post left knee replacement Z96.652 Schizophrenia F20.9 Insomnia G47.00 Chronic GERD K21.9 Tobacco abuse Z72.0
--- NOTE | 2023-03-21 11:08 | Coding Query ---
A supporting diagnosis is required for the test/procedure performed on this patient in order for us to be reimbursed by the patient's insurance. Please provide a supporting diagnosis for the following test/procedure listed below next to the test name along with your signature. *If there is no additional diagnosis for this patient that would support the following test/procedure please document that below next to the test/procedure. Test(s)/Procedure(s) that require a supporting diagnosis: VENOUS REFLUX LWR EXT UNILAT DIAGNOSIS: Left leg pain Provider Signature: MIGUEL Oconnor Date: _03/21/23 Thank you Elicia Delarosa Health Information Management Once completed, please kindly fax back to [phone] For questions please call [phone] SUSHIL
== END 2023-03-08 18:30 | disposition home health service (06) ==
LOC: 3E 11:24 → ED 11:24 → SUATTDRO 16:09 → 3E 17:44